=== PATIENT | male | born 1955 | race Caucasian/White ===

== ENCOUNTER → 2017-09-24 | Outpatient (CLI) | payer OTHER ==
--- NOTE | 2017-09-24 17:19 | CONS ---
CONSULTATION REASON FOR CONSULTATION: Sleep apnea. This is a 62-year-old male patient, referred to the [facility] [place] for evaluation of sleep apnea. The patient reports loud snoring and he has been told to quit breathing by family members. He wakes up tired during the day. He averages around 6-7 hours of sleep. He goes to bed between 11:00 p.m. and 2:00 a.m. and gets out 530-6 a.m. in the morning. On weekends, he sleeps a bit longer than that. As such, he averages somewhere between 5-7 hours of sleep per night. He is tired during the day. He can fall asleep easily. He takes a 30 minute nap on a daily basis. He does not fall asleep while driving his car. No history of any motor vehicle accident because of feeling drowsy or sleepy. His [place] score is 8. PAST MEDICAL HISTORY: COPD, hypertension, paroxysmal atrial fibrillation, gout, hyperlipidemia diabetes mellitus, peripheral neuropathy. PAST SURGICAL HISTORY: Includes knee surgery, cholecystectomy, tonsillectomy, eye surgery. DRUG ALLERGIES: Not known. OUTPATIENT MEDICATION LIST: Includes: 1. Allopurinol 100 mg p.o. daily. 2. Sotalol 120 mg p.o. daily. 3. Norvasc 10 mg p.o. daily. 4. Aspirin 81 mg p.o. daily. 5. Lipitor 40 mg p.o. daily. 6. Advair 250-50 Diskus 1 puff twice a day. 7. Gabapentin 300 mg p.o. every 12 hours. 8. Lasix 20 mg twice a day. 9. Glimepiride 2 mg in the morning, 1 at night. 10.Lisinopril 20 mg p.o. daily. 11.Singular 10 a day. 12.Xarelto 15 mg p.o. daily. 13.Aldactone 25 mg p.o. daily. 14.Digoxin 0.125 mg p.o. daily. 15.Spiriva 1 inhalation daily. SOCIAL HISTORY: Patient smokes 1 pack of cigarettes a day. No history of alcohol. No history of IV drugs. FAMILY HISTORY: Both parents, mother and father have obstructive sleep apnea. REVIEW OF SYSTEMS: 12-point review of system was done. Positive findings are mentioned above in the history of present illness. No recent weight gain or weight loss. No other constitutional symptoms for now. No sleepwalking. No sleep talking. No other parasomnias. No restlessness in lower extremities. Although he has chronic symptoms of neuropathy. No anxiety. No palpitations. No panic attacks. No claustrophobia. PHYSICAL EXAMINATION: BP is 150/66, pulse 62, respirations 16, temperature 97.8. Saturation 98% on room air. Weight is 251, height is 5 feet 10 inches, neck size 17. General appearance: Calm, comfortable. Head is atraumatic, normocephalic. NECK: Supple. Mallampati class 4. No overbite. No goiter or neck masses. LUNGS: Clear to auscultation. HEART: Sounds regular rhythm. Normal S1, S2. No S3. No murmurs. ABDOMEN: Soft, nontender. No organomegaly. EXTREMITIES: No edema. No cyanosis or clubbing. SKIN: Negative for any wounds or ulceration. NEUROLOGIC: A and O x3. No focal neurological deficits. IMPRESSION: 1. Hypersomnia, [place] score of 8, under investigation for sleep apnea likely related to obstructive sleep apnea. 2. Loud snoring. 3. Witnessed apneas. 4. Obesity BMI of 36. 5. Paroxysmal atrial fibrillation, current rhythm is sinus. 6. Chronic obstructive pulmonary disease. 7. Hypertension. 8. Hyperlipidemia. 9. Diabetes mellitus. 10.Peripheral neuropathy. PLAN: The patient has a component of insufficient sleep syndrome. He is averaging somewhere between 5-7 hours of sleep. I would advise him to go to bed at a regular time which will be probably somewhere between 10-11 pm. He needs to average of at least 7 hours of sleep every night. At the same time there is suspicion for obstructive sleep apnea. The patient will be sent for a screening polysomnogram to look for any sleep breathing disorder and treat accordingly. Weight loss is advised. Tight control of cardiovascular risk factors. We will continue to follow. MMODL / IJN: [id number] /
== END | disposition home or self-care (01) ==
LOC: SLEEP 16:06
PROVIDERS: ATTEND Internal Medicine Critical Care Medicine
DX: G47.10 Hypersomnia, unspecified (principal); R06.83 Snoring; E66.9 Obesity, unspecified; I48.0 Paroxysmal atrial fibrillation; J44.9 Chronic obstructive pulmonary disease, unspecified; I10 Essential (primary) hypertension; E78.5 Hyperlipidemia, unspecified; E11.42 Type 2 diabetes mellitus with diabetic polyneuropathy; F17.210 Nicotine dependence, cigarettes, uncomplicated; Z68.36 Body mass index [BMI] 36.0-36.9, adult; Z79.899 Other long term (current) drug therapy; Z79.82 Long term (current) use of aspirin; Z79.84 Long term (current) use of oral hypoglycemic drugs
CPT/HCPCS: 99211

== ENCOUNTER → 2017-09-26 | Outpatient (CLI) | payer OTHER ==
--- NOTE | 2017-09-26 11:21 | XR ---
EXAMINATION TYPE: XR knee complete LT DATE OF EXAM: 09/26/2017 CLINICAL HISTORY: Medial left knee pain. Prior hyperextension injury resulting in prior surgical repa ir. TECHNIQUE: Three views of the left knee are obtained. COMPARISON: None. FINDINGS: There is no acute fracture/dislocation evident in left knee. There is evidence of prior c ruciate ligament repair with osseous tracts of the lateral distal femoral condyle and medial tibial p lateau and fixating solitary transcortical screw of the medial tibial plateau. No evidence of hardwar e fracture. The tri-compartment joint spaces appear within normal limits. Bicompartmental chondrocalc inosis is noted. There are small tricompartmental marginal osteophytes . The overlying soft tissue ap pears unremarkable. Mild calcific atheromatous change of the femoral artery and its branches is seen. IMPRESSION: 1. No acute fracture or dislocation in the left knee. 2. Bicompartmental chondrocalcinosis, which can be seen in CPPD other arthropathies. 3. Postsurgical change of the left knee with no evidence of hardware fracture or malalignment. 4. Mild tricompartmental arthrosis.
== END | disposition home or self-care (01) ==
LOC: RADXRMAIN 10:45
PROVIDERS: ATTEND Family Medicine
DX: M17.12 Unilateral primary osteoarthritis, left knee (principal); M11.262 Other chondrocalcinosis, left knee; Z98.890 Other specified postprocedural states

== ENCOUNTER → 2017-10-01 | Outpatient (CLI) | payer OTHER ==
--- NOTE | 2017-10-02 10:42 | CT ---
EXAMINATION TYPE: CT abdomen pelvis wo con DATE OF EXAM: 10/01/2017 COMPARISON: None HISTORY: Gross hematuria. CT DLP: 1135 mGycm Examination of the solid and hollow viscera is limited given the lack of contrast. FINDINGS: LUNG BASES: No evidence for nodule. No evidence for infiltrate. LIVER/GB: Cholecystectomy clips noted. No space-occupying hepatic lesion. PANCREAS: No pancreatic mass identified. No inflammatory process seen. SPLEEN: No evidence for splenomegaly. No intrasplenic lesions seen. ADRENALS: Left adrenal nodule reflecting an adenoma KIDNEYS: 5 mm nonobstructing calculus upper pole right kidney. 2 mm nonobstructing calculus lower santi e right kidney. Hypoattenuating lesion subcentimeter in size midpole right kidney is nonspecific. BOWEL: Appendix has a normal appearance. No evidence of bowel obstruction. No inflammatory process. Lymph nodes: No evidence for adenopathy greater than 1 cm. Abdominal aorta: Atheromatous changes seen. No evidence for aneurysm. Genital organs: No significant abnormality. Other: No significant abnormality. IMPRESSION: 1. Nonobstructing nephrolithiasis. 2. Nonspecific right renal lesion. Consider ultrasound correlation.
== END ==
LOC: RADCTMAIN 17:50
PROVIDERS: ATTEND Family Medicine
DX: N20.0 Calculus of kidney (principal); N28.9 Disorder of kidney and ureter, unspecified; R31.0 Gross hematuria
CPT/HCPCS: 74176

== ENCOUNTER 2017-10-21 13:43 | Inpatient (IN) | payer OTHER ==
[2017-10-21] MEDS ORDERED: KETOROLAC 30 MG/ML 1 ML VIAL IVP STA (14:44)
[2017-10-21] MEDS ORDERED: METOCLOPRAMIDE 5 MG/ML 2 ML VIAL IVP STA (14:44)
--- NOTE | 2017-10-21 14:50 | ED ---
General Adult HPI - General Chief complaint: Abdominal Pain Stated complaint: Abdominal pain Time Seen by Provider: 10/21/17 14:21 Source: patient, RN notes reviewed Mode of arrival: wheelchair Limitations: no limitations - History of Present Illness Initial comments: Patient is a pleasant 62-year-old male presenting to the emergency Department with abdominal pain. Discomfort is mostly the lower abdomen, on both sides in the middle. Patient does have a history of similar symptoms twice previously associated with kidney stones. Patient does have associated nausea. Patient had some mild chest discomfort in route however attributes that to his overall discomfort. Patient has been sweating. No fevers. Patient has had decreased urinary output today. - Related Data Home Medications Medication Instructions Recorded Confirmed Allopurinol [Zyloprim] 100 mg PO DAILY 08/08/14 10/21/17 Gabapentin [Neurontin] 300 mg PO BID 08/08/14 10/21/17 Glimepiride [Amaryl] 1 mg PO AC-SUPPER 08/08/14 10/21/17 Atorvastatin [Lipitor] 40 mg PO HS 10/21/17 10/21/17 Fluticasone/Salmeterol [Advair 1 puff INHALATION RT-BID 10/21/17 10/21/17 250-50 Diskus] Furosemide [Lasix] 20 mg PO BID 10/21/17 10/21/17 Glimepiride [Amaryl] 2 mg PO AC-BRKFST 10/21/17 10/21/17 Lisinopril [Zestril] 20 mg PO BID 10/21/17 10/21/17 Montelukast [Singulair] 10 mg PO HS 10/21/17 10/21/17 Rivaroxaban [Xarelto] 15 mg PO AC-SUPPER 10/21/17 10/21/17 Sotalol [Betapace] 120 mg PO BID 10/21/17 10/21/17 Spironolactone [Aldactone] 25 mg PO DAILY 10/21/17 10/21/17 Tamsulosin [Flomax] 0.4 mg PO HS 10/21/17 10/21/17 Tiotropium 18 Mcg/Puff [Spiriva] 1 cap INHALATION RT-DAILY 10/21/17 10/21/17 amLODIPine [Norvasc] 10 mg PO DAILY 10/21/17 10/21/17 Previous Rx's Medication Instructions Recorded Aspirin EC [Ecotrin Low Dose] 81 mg PO DAILY tablet. 08/09/14 Allergies Allergy/AdvReac Type Severity Reaction Status Date / Time No Known Allergies Allergy Verified 10/21/17 14:53 Review of Systems ROS Statement: Those systems with pertinent positive or pertinent negative responses have been documented in the HPI. ROS Other: All systems not noted in ROS Statement are negative. Constitutional: Denies: fever Eyes: Denies: eye pain ENT: Denies: ear pain Respiratory: Denies: cough Cardiovascular: Reports: as per HPI, chest pain Endocrine: Denies: fatigue Gastrointestinal: Reports: abdominal pain, nausea. Denies: vomiting Genitourinary: Reports: urgency. Denies: dysuria Musculoskeletal: Denies: back pain Skin: Denies: rash Neurological: Denies: weakness Past Medical History Past Medical History: Atrial Fibrillation, COPD, Diabetes Mellitus, Deep Vein Thrombosis (DVT), Hyperlipidemia, Hypertension, Osteoarthritis (OA), Prostate Disorder Additional Past Medical History / Comment(s): Hypertension and hypertensive cardio vascular disease, hypokalemia, benign prostatic hypertrophy, diabetes mellitus type 2, osteoarthritis, overweight, chronic tobacco use and dependence , COPD, gout. History of Any Multi-Drug Resistant Organisms: None Reported Past Surgical History: Cholecystectomy, Joint Replacement Additional Past Surgical History / Comment(s): Cholecystectomy with hernia repair about 2 weeks ago, Bilateral cataract surgery, left total knee arthroplasty with second arthroscopic knee surgery, left leg open reduction and internal fixation. Past Anesthesia/Blood Transfusion Reactions: No Reported Reaction Past Psychological History: No Psychological Hx Reported Smoking Status: Heavy tobacco smoker Past Alcohol Use History: None Reported, Occasional Past Drug Use History: None Reported - Past Family History Father History Unknown: Yes Family Medical History: Cancer (Father is 88-year-old he had melanoma 3) Mother History Unknown: Yes Family Medical History: Cancer (Mother at age of 64 from cancer) Brother(s) Family Medical History: No Reported History (Patient has one brother no major medical problems.) Sister(s) Family Medical History: No Reported History (2 sisters one of them from drug overdose after a chronic pain syndrome from low back pain) General Exam Limitations: no limitations General appearance: alert, other (Patient does appear uncomfortable) Head exam: Present: atraumatic, normocephalic Eye exam: Present: normal appearance Neck exam: Present: normal inspection Respiratory exam: Present: normal lung sounds bilaterally Cardiovascular Exam: Present: regular rate, normal rhythm Expanded Peripheral pulses: 2+: Dorsalis Pedis (R), Dorsalis Pedis (L) GI/Abdominal exam: Present: soft, tenderness (Mild tenderness in the lower abdomen), normal bowel sounds. Absent: distended, guarding, rebound, rigid, pulsatile mass Extremities exam: Present: normal inspection. Absent: pedal edema, calf tenderness Back exam: Present: normal inspection Neurological exam: Present: alert Psychiatric exam: Present: normal affect, normal mood Skin exam: Present: diaphoretic Course Vital Signs 10/21/17 10/21/17 10/21/17 13:48 14:01 15:45 Temperature 97.7 F Pulse Rate 60 68 Respiratory 20 20 18 Rate Blood Pressure 197/95 156/68 O2 Sat by Pulse 100 95 Oximetry EKG Findings - EKG Comments: EKG Findings:: Normal sinus rhythm 61. ME 182. QRS 86. QT 454. QTC 457. Normal axis. Septal Q waves. No acute ST change. Medical Decision Making - Medical Decision Making Patient reevaluated and is improved. Discomfort is currently 5/10. Case was discussed in detail with Dr. Zamora from vascular surgery who will consult on this patient. He states patient does not need immediate intervention. Case was also discussed with Dr. De La Cruz who will admit for Dr. Long. - Lab Data Result diagrams: 10/21/17 14:21 10/21/17 14:21 Lab Results 10/21/17 10/21/17 10/21/17 Range/Units 14:21 14:21 14:21 WBC 13.2 H (3.8-10.6) k/uL RBC 5.11 (4.30-5.90) m/uL Hgb 15.8 (13.0-17.5) gm/dL Hct 48.6 (39.0-53.0) % MCV 95.2 (80.0-100.0) fL MCH 30.9 (25.0-35.0) pg MCHC 32.5 (31.0-37.0) g/dL RDW 13.8 (11.5-15.5) % Plt Count 248 (150-450) k/uL Neutrophils % 79 % Lymphocytes % 14 % Monocytes % 5 % Eosinophils % 1 % Basophils % 0 % Neutrophils # 10.4 H (1.3-7.7) k/uL Lymphocytes # 1.9 (1.0-4.8) k/uL Monocytes # 0.7 (0-1.0) k/uL Eosinophils # 0.1 (0-0.7) k/uL Basophils # 0.0 (0-0.2) k/uL PT (9.0-12.0) sec INR (<1.2) APTT (22.0-30.0) sec Sodium 138 (137-145) mmol/L Potassium 5.1 (3.5-5.1) mmol/L Chloride 106 (98-107) mmol/L Carbon Dioxide 18 L (22-30) mmol/L Anion Gap 14 mmol/L BUN 29 H (9-20) mg/dL Creatinine 1.30 H (0.66-1.25) mg/dL Est GFR (CKD-EPI)AfAm 69 (>60 ml/min/1.73 sqM) Est GFR (CKD-EPI)NonAf 60 (>60 ml/min/1.73 sqM) Glucose 202 H (74-99) mg/dL Calcium 9.9 (8.4-10.2) mg/dL Total Bilirubin 0.6 (0.2-1.3) mg/dL AST 31 (17-59) U/L ALT 34 (21-72) U/L Alkaline Phosphatase 111 (38-126) U/L Total Creatine Kinase 198 H (55-170) U/L CK-MB (CK-2) 2.9 H* (0.0-2.4) ng/mL CK-MB (CK-2) Rel Index 1.5 Troponin I <0.012 (0.000-0.034) ng/mL Total Protein 7.4 (6.3-8.2) g/dL Albumin 4.4 (3.5-5.0) g/dL Amylase 99 (30-110) U/L Lipase 104 (23-300) U/L Urine Color Urine Appearance (Clear) Urine pH (5.0-8.0) Ur Specific [place] (1.001-1.035) Urine Protein (Negative) Urine Glucose (UA) (Negative) Urine Ketones (Negative) Urine Blood (Negative) Urine Nitrite (Negative) Urine Bilirubin (Negative) Urine Urobilinogen (<2.0) mg/dL Ur Leukocyte Esterase (Negative) Urine RBC (0-5) /hpf Urine WBC (0-5) /hpf Urine Mucus (None) /hpf 10/21/17 10/21/17 Range/Units 14:21 14:57 WBC (3.8-10.6) k/uL RBC (4.30-5.90) m/uL Hgb (13.0-17.5) gm/dL Hct (39.0-53.0) % MCV (80.0-100.0) fL MCH (25.0-35.0) pg MCHC (31.0-37.0) g/dL RDW (11.5-15.5) % Plt Count (150-450) k/uL Neutrophils % % Lymphocytes % % Monocytes % % Eosinophils % % Basophils % % Neutrophils # (1.3-7.7) k/uL Lymphocytes # (1.0-4.8) k/uL Monocytes # (0-1.0) k/uL Eosinophils # (0-0.7) k/uL Basophils # (0-0.2) k/uL PT 9.8 (9.0-12.0) sec INR 1.0 (<1.2) APTT 27.9 (22.0-30.0) sec Sodium (137-145) mmol/L Potassium (3.5-5.1) mmol/L Chloride (98-107) mmol/L Carbon Dioxide (22-30) mmol/L Anion Gap mmol/L BUN (9-20) mg/dL Creatinine (0.66-1.25) mg/dL Est GFR (CKD-EPI)AfAm (>60 ml/min/1.73 sqM) Est GFR (CKD-EPI)NonAf (>60 ml/min/1.73 sqM) Glucose (74-99) mg/dL Calcium (8.4-10.2) mg/dL Total Bilirubin (0.2-1.3) mg/dL AST (17-59) U/L ALT (21-72) U/L Alkaline Phosphatase (38-126) U/L Total Creatine Kinase (55-170) U/L CK-MB (CK-2) (0.0-2.4) ng/mL CK-MB (CK-2) Rel Index Troponin I (0.000-0.034) ng/mL Total Protein (6.3-8.2) g/dL Albumin (3.5-5.0) g/dL Amylase (30-110) U/L Lipase (23-300) U/L Urine Color Yellow Urine Appearance Clear (Clear) Urine pH 5.5 (5.0-8.0) Ur Specific [place] 1.016 (1.001-1.035) Urine Protein 1+ H (Negative) Urine Glucose (UA) 3+ H (Negative) Urine Ketones 1+ H (Negative) Urine Blood Large H (Negative) Urine Nitrite Negative (Negative) Urine Bilirubin Negative (Negative) Urine Urobilinogen <2.0 (<2.0) mg/dL Ur Leukocyte Esterase Trace H (Negative) Urine RBC 142 H (0-5) /hpf Urine WBC 13 H (0-5) /hpf Urine Mucus Rare H (None) /hpf - Radiology Data Radiology results: report reviewed (Computed tomography scan of the abdomen pelvis does show 5.5 mm distal right ureteral calculus with hydronephrosis. Short segment and localize aortic dissection at the L2 level that extends a course of 1 cm. This was also visualized on previous computed tomography scan.) , image reviewed (KUB shows right-sided ureterolithiasis.) Disposition Clinical Impression: Aortic dissection, abdominal, Ureterolithiasis Disposition: ADMITTED IP TO THIS HOSP Is patient prescribed a controlled substance at d/c from ED?: No Referrals: Tanesha Long MD [Primary Care Provider] - 1-2 days Decision Time: 16:48
[2017-10-21] MEDS: SODIUM CHLORIDE 0.9% 1,000 ML IV STA ×2 (14:55→19:07)
[2017-10-21 15:09] LABS: Basophils % (A) 0 %; Eosinophils # (A) 0.1 k/uL (0-0.7); Eosinophils % (A) 1 %; HCT 48.6 % (39.0-53.0); HGB 15.8 gm/dL (13.0-17.5); Lymphocytes # (A) 1.9 k/uL (1.0-4.8); Lymphocytes % (A) 14 %; MCH 30.9 pg (25.0-35.0); MCHC 32.5 g/dL (31.0-37.0); MCV 95.2 fL (80.0-100.0); Mean Platelet Volume 7.2; Monocytes # (A) 0.7 k/uL (0-1.0); Monocytes % (A) 5 %; Neutrophils # (A) 10.4 k/uL (1.3-7.7); Neutrophils % (A) 79 %; Platelet Count 248 k/uL (150-450); RBC 5.11 m/uL (4.30-5.90); RDW 13.8 % (11.5-15.5); WBC 13.2 k/uL (3.8-10.6)
[2017-10-21 15:13] LABS: Partial Thromboplastin Time 27.9 sec (22.0-30.0); Prothrombin Time 9.8 sec (9.0-12.0)
[2017-10-21 15:17] LABS: Albumin 4.4 g/dL (3.5-5.0); Calcium 9.9 mg/dL (8.4-10.2); Potassium 5.1 mmol/L (3.5-5.1); Total Bilirubin 0.6 mg/dL (0.2-1.3); Total Protein 7.4 g/dL (6.3-8.2)
[2017-10-21 15:21] LABS: Appearance,Urine Clear (Clear); Bilirubin,Urine Negative (Negative); Blood,Urine Large (Negative); Color,Urine Yellow; Glucose,Urine (UA) 3+ (Negative); Ketones,Urine 1+ (Negative); Leukocyte Esterase,Urine Trace (Negative); Mucus,Urine Rare /hpf; Nitrite,Urine Negative (Negative); PH, Urine 5.5 (5.0-8.0); Protein,Urine 1+ (Negative); RBC,Urine 142 /hpf (0-5); Specific Gravity,Urine 1.016 (1.001-1.035); Urobilinogen,Urine <2.0 mg/dL (<2.0); WBC,Urine 13 /hpf (0-5)
[2017-10-21 15:29] LABS: Creatine Kinase 198 U/L (55-170)
[2017-10-21 15:42] LABS: Troponin I <0.012 ng/mL (0.000-0.034)
[2017-10-21 15:48] LABS: Creatine Kinase MB 2.9 ng/mL (0.0-2.4)
--- NOTE | 2017-10-21 15:53 | CT ---
EXAMINATION TYPE: CT abdomen pelvis wo con DATE OF EXAM: 10/21/2017 COMPARISON: 10/01/2017 HISTORY: Patient complains of RLQ pain. CT DLP: 1010.3 mGycm Automated exposure control for dose reduction was used. TECHNIQUE: Helical acquisition of images was performed from the lung bases through the pelvis. FINDINGS: LUNG BASES: Subsegmental consolidation at the lung bases. Changes of chronic interstitial lung diseas e. LIVER/GB: Previous cholecystectomy changes are noted. PANCREAS: No significant abnormality is seen. SPLEEN: No significant abnormality is seen. ADRENALS: Nonspecific 1 cm nodular thickening of the left adrenal gland is stable. KIDNEYS: There is moderate right hydronephrosis secondary to a distal right ureteral calculus just pr oximal to the UVJ measuring approximately 5.5 mm. There are additional punctate calcifications involv ing the right kidney with at least 3 additional 1 mm calcifications. There is an upper pole larger ca lcification noted posteriorly measuring 3 mm. No definite left-sided renal calculi. Indeterminate rig ht renal lesion by noncontrast technique. ADENOPATHY: None visualized. OSSEOUS STRUCTURES: Severe degenerative disc disease involving the lower lumbar spine. BOWEL: No significant abnormality is seen. Appendix appears normal. OTHER: Atherosclerotic change of the vasculature. IMPRESSION: 1. Moderate to severe right hydronephrosis secondary to obstructing 5.5 mm distal right ureteral calc ulus. 2. Right-sided nephrolithiasis as measured above. 3. There is a short segmental localized aortic dissection at the L2 level. This appears to extend a c ourse of 1 cm. Stable from the prior exam. Case discussed with ER physician.
--- NOTE | 2017-10-21 16:22 | XR ---
Abdomen HISTORY: Abdominal pain Frontal view of the abdomen on [address] abdomen pelvis same date Surgical clips present in the right upper quadrant. Lung bases are clear. There is no evident pneumop eritoneum or bowel obstruction. At the level of the distal right ureter there is a calcification pres ent corresponding to plain film finding measuring approximately 8 mm in size. Calcification is superi mposed over the right kidney measuring approximately 5 to 6 mm. Degenerative disc changes in the visu alized spine, there may be a slight spinal curvature. IMPRESSION: Right nephrolithiasis, distal right ureteral calculus.
[2017-10-21] MEDS ORDERED: ONDANSETRON 4 MG/2 ML VIAL IVP PRN (16:49)
[2017-10-21] MEDS ORDERED: HYDROmorphone 1 MG/ML 1 ML SYRINGE IVP PRN (16:49)
[2017-10-21] MEDS ORDERED: NALOXONE 0.4 MG/ML 1 ML VIAL IV PRN (16:49)
[2017-10-21] MEDS ORDERED: METOPROLOL TARTRATE 25 MG TAB PO PRN (16:55)
[2017-10-21] MEDS ORDERED: SODIUM CHLORIDE 0.9% 1,000 ML IV SCH ×2 (17:00→22:15)
[2017-10-21 18:51] VITALS: BMI 34.8
[2017-10-21] MEDS: HYDROmorphone 1 MG/ML 1 ML SYRINGE IVP PRN ×2 (19:02→21:44)
[2017-10-21 20:45] LABS: Glucose,Whole Blood 131 mg/dL (75-99)
[2017-10-21] MEDS ORDERED: ATORVASTATIN 40 MG TAB PO SCH (21:00)
[2017-10-21] MEDS: FUROSEMIDE 20 MG TAB PO SCH ×2 (21:48→22:05)
[2017-10-21] MEDS ORDERED: SOTALOL 120 MG TAB PO SCH (22:15)
[2017-10-21] MEDS ORDERED: GABAPENTIN 300 MG CAP PO SCH (22:15)
[2017-10-21] MEDS ORDERED: TAMSULOSIN 0.4 MG CAP.ER.24H PO SCH (22:15)
[2017-10-21] MEDS ORDERED: MONTELUKAST 10 MG TAB PO SCH (22:15)
[2017-10-21] MEDS ORDERED: LISINOPRIL 20 MG TAB PO SCH (22:15)
[2017-10-22] MEDS: HYDROmorphone 1 MG/ML 1 ML SYRINGE IVP PRN (01:09)
[2017-10-22 06:02] LABS: Glucose,Whole Blood 146 mg/dL (75-99)
[2017-10-22 07:02] VITALS: TEMP 98.4
[2017-10-22] MEDS ORDERED: SOTALOL 120 MG TAB PO STA (08:38)
[2017-10-22 08:43] VITALS: BP 151/70; PULSE 47; RESP 18
[2017-10-22] MEDS ORDERED: GLIMEPIRIDE 2 MG TAB PO SCH (08:45)
--- NOTE | 2017-10-22 08:53 | CONS ---
CONSULTATION This is a 62-year-old pleasant gentleman who came to the emergency room yesterday with history of abdominal pain. Patient has a history of recurrent calculi for that he was seen before and found to have a right ureteric stone. Patient has history of hypertension controlled with medication. MEDICAL HISTORY: History of hypertension, coronary artery disease. He has a onion topper out of town which he is going to see him tomorrow. Patient is under care of Dr. Long. No history of claudication, rest pain. PHYSICAL EXAMINATION: Patient was seen in his room. Patient is lying comfortably in bed. Neck is supple. No bruit appreciated. Chest is clear to auscultation. First and second heart sounds are normal. Abdomen is soft, nontender. Mild tenderness and discomfort noted at the left lower abdomen. Vascular exam, brachial radial pulses are palpable. Femorals are 1+ bilateral. No ischemic changes noted in the extremity. CT scan showed right ureteric stone and also the it revealed the patient has a chronic dissection, which she was present on the previous exam. At this point, the patient is stable from a vascular point of view. Patient wants to go to see his own onion topper out of town. There is no evidence of any vascular compromise. According to the patient, his pain is gone and also by CT scan shows there is a localized dissection at the L2 level which extends about 1 cm and this was also visualized on the previous CAT scan. Patient is stable from vascular point of view. MMODL / IJN: [id number] /
[2017-10-22] MEDS ORDERED: SOTALOL 80 MG TAB PO SCH (09:00)
[2017-10-22] MEDS ORDERED: SPIRONOLACTONE 25 MG TAB PO SCH (09:00)
[2017-10-22] MEDS ORDERED: APIXABAN 5 MG TAB PO SCH (09:00)
[2017-10-22] MEDS ORDERED: amLODIPine 10 MG TAB PO SCH (09:00)
--- NOTE | 2017-10-22 12:03 | P.HPIM ---
History of Present Illness H&P Date: 10/22/17 Chief Complaint: Lower abdominal pain, nausea HISTORY AND PHYSICAL AND DISCHARGE SUMMARY: This is a 62-year-old male one of Dr. Long with a previous medical history significant for paroxysmal atrial fibrillation on eliquis, hypertension and hypertensive cardiovascular disease, hyperlipidemia, benign prostatic hypertrophy, diabetes mellitus type 2 with diabetic neuropathy, gout, history of DVT. He has known history of kidney stones and follows with the urologist. He states he has had his parathyroid checked. Patient states that he passes a stone on a monthly basis. He came into the hospital with lower abdominal pain to the suprapubic area along with nausea and decreased urine output. Her is blood pressure was elevated and he initially had some chest discomfort which he stated went away after he arrived to the hospital. CT of the abdomen and pelvis showed moderate to severe right hydronephrosis secondary to obstructing 5.5 mm distal right ureteral calculus. Right-sided nephrolithiasis. Short segmental localized aortic dissection at the L2 level this appears to extend the course of 1 cm. Stable from prior exam. White count was elevated at 13.2, BUN 29 creatinine 1.3. Blood sugars were elevated at 131-202. Troponin was negative. Urinalysis was clear with blood large, leukoesterase trace. Patient was started on Toradol, Dilaudid, IV fluids and admitted to the selective care unit where he was seen in consultation by Dr. Zamora and there was also a consult in for urology was subsequently canceled. Patient was seen by Dr. Zamora and deemed to be stable from a vascular perspective. By the time of this evaluation, patient was pain-free and he thought he passed the stone. He was angry that he did not have any breakfast and he was anxious to be discharged home. He requested that no medication changes be made for his blood pressure which she states it normally runs in the normal range at home. Patient will be discharged home today in stable condition. No medication changes were made. Discharge Medication List Allopurinol [Zyloprim] 100 mg PO DAILY 08/08/14 [History] Gabapentin [Neurontin] 300 mg PO BID 08/08/14 [History] Glimepiride [Amaryl] 1 mg PO AC-SUPPER 08/08/14 [History] Aspirin EC [Ecotrin Low Dose] 81 mg PO DAILY tablet. 08/09/14 [Rx] Apixaban [Eliquis] 5 mg PO BID 10/21/17 [History] Atorvastatin [Lipitor] 40 mg PO HS 10/21/17 [History] Fluticasone/Salmeterol [Advair 250-50 Diskus] 1 puff INHALATION RT-BID 10/21/17 [History] Furosemide [Lasix] 20 mg PO DAILY 10/21/17 [History] Glimepiride [Amaryl] 2 mg PO AC-BRKFST 10/21/17 [History] Lisinopril [Zestril] 20 mg PO BID 10/21/17 [History] Montelukast [Singulair] 10 mg PO HS 10/21/17 [History] Sotalol [Betapace] 120 mg PO BID 10/21/17 [History] Spironolactone [Aldactone] 25 mg PO DAILY 10/21/17 [History] Tamsulosin [Flomax] 0.4 mg PO HS 10/21/17 [History] amLODIPine [Norvasc] 10 mg PO DAILY 10/21/17 [History] Review of Systems All systems: negative Constitutional: Denies chills, Denies fatigue, Denies fever, Denies poor appetite, Denies weight loss Eyes: denies blurred vision, denies pain Ears, nose, mouth and throat: Denies headache, Denies sore throat, Denies vertigo Cardiovascular: Denies chest pain, Denies decreased exercise tolerance, Denies dyspnea on exertion, Denies leg edema, Denies lightheadedness, Denies shortness of breath, Denies syncope Respiratory: Denies cough, Denies cough with sputum, Denies dyspnea, Denies excessive sputum, Denies hemoptysis, Denies home oxygen, Denies wheezing Gastrointestinal: Reports abdominal pain, Denies diarrhea, Denies nausea, Denies vomiting Genitourinary: Reports hematuria, Denies dysuria Musculoskeletal: Denies myalgias Integumentary: Denies pruritus, Denies rash Neurological: Denies numbness, Denies weakness Psychiatric: Denies anxiety, Denies depression Endocrine: Denies fatigue, Denies weight change Past Medical History Past Medical History: Atrial Fibrillation, COPD, Diabetes Mellitus, Deep Vein Thrombosis (DVT), Hyperlipidemia, Hypertension, Osteoarthritis (OA), Prostate Disorder Additional Past Medical History / Comment(s): Hypertension and hypertensive cardio vascular disease, hypokalemia, benign prostatic hypertrophy, diabetes mellitus type 2, osteoarthritis, overweight, chronic tobacco use and dependence , COPD, gout. History of Any Multi-Drug Resistant Organisms: None Reported Past Surgical History: Cholecystectomy, Joint Replacement Additional Past Surgical History / Comment(s): Cholecystectomy with hernia repair about 2 weeks ago, Bilateral cataract surgery, left total knee arthroplasty with second arthroscopic knee surgery, left leg open reduction and internal fixation. Past Anesthesia/Blood Transfusion Reactions: No Reported Reaction Past Psychological History: No Psychological Hx Reported Smoking Status: Heavy tobacco smoker Past Alcohol Use History: None Reported, Occasional Additional Past Alcohol Use History / Comment(s): Patient is smoker one pack per day since he was 14 years of age. He drinks alcohol occasionally. Past Drug Use History: None Reported - Past Family History Father History Unknown: Yes Family Medical History: Cancer Additional Family Medical History / Comment(s): Father has history of melanoma 3. Mother History Unknown: Yes Family Medical History: Cancer Additional Family Medical History / Comment(s): Mother at age 64 from cancer. Brother(s) Family Medical History: No Reported History Additional Family Medical History / Comment(s): Patient has 1 brother with no major medical problems. Sister(s) Family Medical History: No Reported History Additional Family Medical History / Comment(s): Patient has 2 sisters and mother from drug overdose after chronic pain syndrome from low back pain. Medications and Allergies Home Medications Medication Instructions Recorded Confirmed Type Allopurinol [Zyloprim] 100 mg PO DAILY 08/08/14 10/21/17 History Gabapentin [Neurontin] 300 mg PO BID 08/08/14 10/21/17 History Glimepiride [Amaryl] 1 mg PO AC-SUPPER 08/08/14 10/21/17 History Aspirin EC [Ecotrin Low Dose] 81 mg PO DAILY tablet. 08/09/14 10/21/17 Rx Apixaban [Eliquis] 5 mg PO BID 10/21/17 10/21/17 History Atorvastatin [Lipitor] 40 mg PO HS 10/21/17 10/21/17 History Fluticasone/Salmeterol [Advair 1 puff INHALATION RT-BID 10/21/17 10/21/17 History 250-50 Diskus] Furosemide [Lasix] 20 mg PO DAILY 10/21/17 10/21/17 History Glimepiride [Amaryl] 2 mg PO AC-BRKFST 10/21/17 10/21/17 History Lisinopril [Zestril] 20 mg PO BID 10/21/17 10/21/17 History Montelukast [Singulair] 10 mg PO HS 10/21/17 10/21/17 History Sotalol [Betapace] 120 mg PO BID 10/21/17 10/21/17 History Spironolactone [Aldactone] 25 mg PO DAILY 10/21/17 10/21/17 History Tamsulosin [Flomax] 0.4 mg PO HS 10/21/17 10/21/17 History amLODIPine [Norvasc] 10 mg PO DAILY 10/21/17 10/21/17 History Allergies Allergy/AdvReac Type Severity Reaction Status Date / Time No Known Allergies Allergy Verified 10/21/17 14:53 Physical Exam Vitals: Vital Signs Temp Pulse Pulse Resp BP BP BP 10/22/17 04:10 98.4 F 71 17 135/68 10/22/17 00:10 97.5 F L 66 19 117/56 10/21/17 20:10 97.3 F L 57 L 19 10/21/17 18:56 52 L 18 175/81 10/21/17 18:00 97.6 F 66 18 143/63 10/21/17 17:16 98.0 F 68 18 126/59 10/21/17 15:45 68 18 156/68 10/21/17 14:01 20 10/21/17 13:48 97.7 F 60 20 197/95 BP Pulse Ox 10/22/17 04:10 97 10/22/17 00:10 98 10/21/17 20:10 146/70 96 10/21/17 18:56 165/80 97 10/21/17 18:00 97 10/21/17 17:16 96 10/21/17 15:45 95 10/21/17 14:01 10/21/17 13:48 100 Intake and Output 10/21/17 10/22/17 10/22/17 22:59 06:59 14:59 Output Total 300 200 Balance -300 -200 Output: Urine 300 200 Other: Voiding Method Urinal Urinal # Voids 1 1 Weight 113.398 kg 114.3 kg Patient sitting up in bed in no apparent distress at the time of evaluation. HEENT: Head is atraumatic, normocephalic, pupils were equal round reactive to light and accommodations, extraocular muscle movement were intact. Neck: Supple, no JVP, no carotid bruit, no lymphadenopathy. Chest: Decreased breath sounds at the bases scattered rhonchi minimal expiratory wheezes, no chest wall tenderness, no intercostal retractions. Heart: First heart sound is depressed, second sounds normal, irregularly irregular. Abdomen: Soft, nontender, nondistended positive bowel sounds. No suprapubic tenderness. Extremities: There is no edema, no calf tenderness, dorsalis pedis +1 bilaterally. Neurologic examination: Patient awake alert and oriented 3, cranial nerves II- 12 appear grossly intact. Deep tendon reflexes were normal, Babinski's were flexor bilaterally. Results CBC & Chem 7: 10/21/17 14:21 10/21/17 14:21 Labs: Abnormal Lab Results - Last 24 Hours (Table) 10/21/17 10/21/17 10/21/17 Range/Units 14:21 14:21 14:21 WBC 13.2 H (3.8-10.6) k/uL Neutrophils # 10.4 H (1.3-7.7) k/uL Carbon Dioxide 18 L (22-30) mmol/L BUN 29 H (9-20) mg/dL Creatinine 1.30 H (0.66-1.25) mg/dL Glucose 202 H (74-99) mg/dL POC Glucose (mg/dL) (75-99) mg/dL Total Creatine Kinase 198 H (55-170) U/L CK-MB (CK-2) 2.9 H* (0.0-2.4) ng/mL Urine Protein (Negative) Urine Glucose (UA) (Negative) Urine Ketones (Negative) Urine Blood (Negative) Ur Leukocyte Esterase (Negative) Urine RBC (0-5) /hpf Urine WBC (0-5) /hpf Urine Mucus (None) /hpf 10/21/17 10/21/17 10/22/17 Range/Units 14:57 20:43 06:00 WBC (3.8-10.6) k/uL Neutrophils # (1.3-7.7) k/uL Carbon Dioxide (22-30) mmol/L BUN (9-20) mg/dL Creatinine (0.66-1.25) mg/dL Glucose (74-99) mg/dL POC Glucose (mg/dL) 131 H 146 H (75-99) mg/dL Total Creatine Kinase (55-170) U/L CK-MB (CK-2) (0.0-2.4) ng/mL Urine Protein 1+ H (Negative) Urine Glucose (UA) 3+ H (Negative) Urine Ketones 1+ H (Negative) Urine Blood Large H (Negative) Ur Leukocyte Esterase Trace H (Negative) Urine RBC 142 H (0-5) /hpf Urine WBC 13 H (0-5) /hpf Urine Mucus Rare H (None) /hpf Thrombosis Risk Factor Assmnt - DVT/VTE Prophylaxis DVT/VTE Prophylaxis: Pharmacologic Prophylaxis ordered - Choose All That Apply Any of the Below Risk Factors Present?: Yes Each Factor Represents 1 point: Abnormal pulmonary function (COPD), Age 41-60 years Other Risk Factors: Yes Each Risk Factor Represents 3 Points: History of DVT/PE Thrombosis Risk Factor Assessment Total Risk Factor Score: 5 Thrombosis Risk Factor Assessment Level: High Risk Assessment and Plan Plan: 1. Right-sided kidney stone with hydronephrosis. Patient has seen his past for kidney stone. Patient will be discharged home today in stable condition and follow up with his urologist. 2. Incidental finding of small aneurysm on CAT scan that is known. Consult with Dr. Zamora is appreciated. 3. Paroxysmal atrial fibrillation on eliquis, sotalol. 4. Hypertension and hypertensive cardiovascular disease. Continue sotalol, Norvasc, spironolactone, lisinopril and Lasix 5. Hyperlipidemia. Continue atorvastatin. 6. Diabetes mellitus type 2. Continue glimepiride 2 mg with breakfast and one with supper. 7. Diabetic polyneuropathy continue patient on gabapentin 300 mg orally twice every day. 8. Chronic tobacco use and dependence, smoking cessation. 9. BPH. Continue tamsulosin 0.4 mg orally once at bedtime. 10. History of gout continue allopurinol 100 mg orally once every day. 11. Patient admitted as an inpatient for 1 night stay. Discharge plan: Return home Impression and plan of care have been directed as dictated by the signing physician. Loni Diaz nurse practitioner acting as scribe for signing physician.
== END 2017-10-22 08:50 | disposition home or self-care (01) | DRG 693 ==
LOC: EC 13:43 → 6SEL 16:48
PROVIDERS: ADMIT Internal Medicine; ATTEND Internal Medicine
DX: N13.2 Hydronephrosis with renal and ureteral calculous obstruction (principal); I71.00 Dissection of unspecified site of aorta; E11.42 Type 2 diabetes mellitus with diabetic polyneuropathy; E78.5 Hyperlipidemia, unspecified; F17.200 Nicotine dependence, unspecified, uncomplicated; I11.9 Hypertensive heart disease without heart failure; I25.10 Atherosclerotic heart disease of native coronary artery without angina pectoris; I48.0 Paroxysmal atrial fibrillation; J44.9 Chronic obstructive pulmonary disease, unspecified; N40.0 Benign prostatic hyperplasia without lower urinary tract symptoms; E66.3 Overweight; Z96.652 Presence of left artificial knee joint; Z79.01 Long term (current) use of anticoagulants; Z79.84 Long term (current) use of oral hypoglycemic drugs; Z80.8 Family history of malignant neoplasm of other organs or systems; Z86.718 Personal history of other venous thrombosis and embolism; Z87.442 Personal history of urinary calculi; Z79.899 Other long term (current) drug therapy; Z68.35 Body mass index [BMI] 35.0-35.9, adult; Z98.42 Cataract extraction status, left eye; Z98.41 Cataract extraction status, right eye; Z90.49 Acquired absence of other specified parts of digestive tract
CPT/HCPCS: 36415; 51798; 74018; 74176; 80053; 81001; 82150; 82550; 82553; 83690; 84484; 85025; 85610; 85730; 93005; 96361; 96374; 96375; 99285

== ENCOUNTER 2017-10-31 23:26 | Emergency (ER) | payer OTHER ==
[2017-10-31 23:39] VITALS: RESP 18
[2017-11-01] MEDS ORDERED: ONDANSETRON 4 MG/2 ML VIAL IVP STA
[2017-11-01] MEDS ORDERED: KETOROLAC 30 MG/ML 1 ML VIAL IVP STA
[2017-11-01] MEDS ORDERED: MORPHINE SULFATE 2 MG/ML SYRINGE IVP STA
[2017-11-01] MEDS ORDERED: SODIUM CHLORIDE 0.9% 1,000 ML IV STA
[2017-11-01 00:10] LABS: Basophils # (A) 0.1 k/uL (0-0.2); Basophils % (A) 1 %; Eosinophils # (A) 0.2 k/uL (0-0.7); Eosinophils % (A) 1 %; HCT 44.7 % (39.0-53.0); HGB 15.2 gm/dL (13.0-17.5); Lymphocytes # (A) 2.7 k/uL (1.0-4.8); Lymphocytes % (A) 20 %; MCH 31.8 pg (25.0-35.0); MCHC 34.1 g/dL (31.0-37.0); MCV 93.2 fL (80.0-100.0); Mean Platelet Volume 6.8; Monocytes # (A) 0.9 k/uL (0-1.0); Monocytes % (A) 7 %; Neutrophils # (A) 9.7 k/uL (1.3-7.7); Neutrophils % (A) 71 %; Platelet Count 227 k/uL (150-450); RBC 4.79 m/uL (4.30-5.90); RDW 13.3 % (11.5-15.5); WBC 13.7 k/uL (3.8-10.6)
[2017-11-01 00:12] LABS: Appearance,Urine Clear (Clear); Bilirubin,Urine Negative (Negative); Blood,Urine Large (Negative); Calcium Oxalate Crystals,Urine Occasional /hpf; Color,Urine Yellow; Glucose,Urine (UA) Negative (Negative); Hyaline Casts,Urine 1 /lpf (0-2); Ketones,Urine Negative (Negative); Leukocyte Esterase,Urine Trace (Negative); Mucus,Urine Rare /hpf; Nitrite,Urine Negative (Negative); PH, Urine 5.5 (5.0-8.0); Protein,Urine Negative (Negative); RBC,Urine 123 /hpf (0-5); Specific Gravity,Urine 1.016 (1.001-1.035); Urobilinogen,Urine <2.0 mg/dL (<2.0); WBC,Urine 14 /hpf (0-5)
[2017-11-01 00:19] LABS: Albumin 4.2 g/dL (3.5-5.0); Calcium 9.7 mg/dL (8.4-10.2); Potassium 4.5 mmol/L (3.5-5.1); Total Bilirubin 0.4 mg/dL (0.2-1.3); Total Protein 6.9 g/dL (6.3-8.2)
--- NOTE | 2017-11-01 00:33 | ED ---
General Adult HPI - General Source: patient Mode of arrival: ambulatory Limitations: no limitations <Rebekah Harper - Last Filed: 11/01/17 03:22> <Perla Billy - Last Filed: 11/03/17 19:06> - General Chief complaint: Urogenital Stated complaint: kidney stone Time Seen by Provider: 10/31/17 23:53 - History of Present Illness Initial comments: 62-year-old male patient presents to the emergency department today for evaluation of right-sided flank pain. Patient states he has been having recurrent kidney stones over the last several weeks. Patient states he was diagnosed with kidney stone 2 weeks ago but had pain had resolved and is feeling better. Patient states that he started to have pain again to the right flank early this morning. Patient states he has taken his home [place] without relief of symptoms. Patient denies any fever or chills with this. Denies any hematuria, dysuria, urinary frequency, urinary urgency, urinary retention. Patient has been having normal bowel movements. States he does have generalized abdominal discomfort. States he has been nauseated but has not vomited.Patient denies any recent rash, shortness breath, chest pain, numbness, tingling, dizziness, weakness, headache, visual changes, or any other complaints. (Rebekah Harper) - Related Data Home Medications Medication Instructions Recorded Confirmed Allopurinol [Zyloprim] 100 mg PO DAILY 08/08/14 10/21/17 Gabapentin [Neurontin] 300 mg PO BID 08/08/14 10/21/17 Glimepiride [Amaryl] 1 mg PO AC-SUPPER 08/08/14 10/21/17 Apixaban [Eliquis] 5 mg PO BID 10/21/17 10/21/17 Atorvastatin [Lipitor] 40 mg PO HS 10/21/17 10/21/17 Fluticasone/Salmeterol [Advair 1 puff INHALATION RT-BID 10/21/17 10/21/17 250-50 Diskus] Furosemide [Lasix] 20 mg PO DAILY 10/21/17 10/21/17 Glimepiride [Amaryl] 2 mg PO AC-BRKFST 10/21/17 10/21/17 Lisinopril [Zestril] 20 mg PO BID 10/21/17 10/21/17 Montelukast [Singulair] 10 mg PO HS 10/21/17 10/21/17 Sotalol [Betapace] 120 mg PO BID 10/21/17 10/21/17 Spironolactone [Aldactone] 25 mg PO DAILY 10/21/17 10/21/17 Tamsulosin [Flomax] 0.4 mg PO HS 10/21/17 10/21/17 amLODIPine [Norvasc] 10 mg PO DAILY 10/21/17 10/21/17 Previous Rx's Medication Instructions Recorded Aspirin EC [Ecotrin Low Dose] 81 mg PO DAILY tablet. 08/09/14 Ondansetron [Zofran ODT] 4 mg PO Q8HR PRN #10 tab 11/01/17 Allergies Allergy/AdvReac Type Severity Reaction Status Date / Time No Known Allergies Allergy Verified 10/21/17 14:53 Review of Systems ROS Other: All systems not noted in ROS Statement are negative. <Rebekah Harper - Last Filed: 11/01/17 03:22> ROS Other: All systems not noted in ROS Statement are negative. <Perla Billy - Last Filed: 11/03/17 19:06> ROS Statement: Those systems with pertinent positive or pertinent negative responses have been documented in the HPI. Past Medical History Past Medical History: Atrial Fibrillation, COPD, Diabetes Mellitus, Deep Vein Thrombosis (DVT), Hyperlipidemia, Hypertension, Osteoarthritis (OA), Prostate Disorder Additional Past Medical History / Comment(s): Hypertension and hypertensive cardio vascular disease, hypokalemia, benign prostatic hypertrophy, diabetes mellitus type 2, osteoarthritis, overweight, chronic tobacco use and dependence , COPD, gout., kidneys tones History of Any Multi-Drug Resistant Organisms: None Reported Past Surgical History: Cholecystectomy, Joint Replacement Additional Past Surgical History / Comment(s): Cholecystectomy with hernia repair about 2 weeks ago, Bilateral cataract surgery, left total knee arthroplasty with second arthroscopic knee surgery, left leg open reduction and internal fixation. Past Anesthesia/Blood Transfusion Reactions: No Reported Reaction Past Psychological History: No Psychological Hx Reported Smoking Status: Heavy tobacco smoker Past Alcohol Use History: None Reported, Occasional Past Drug Use History: None Reported - Past Family History Father History Unknown: Yes Family Medical History: Cancer Additional Family Medical History / Comment(s): Father has history of melanoma 3. Mother History Unknown: Yes Family Medical History: Cancer Additional Family Medical History / Comment(s): Mother at age 64 from cancer. Brother(s) Family Medical History: No Reported History Additional Family Medical History / Comment(s): Patient has 1 brother with no major medical problems. Sister(s) Family Medical History: No Reported History Additional Family Medical History / Comment(s): Patient has 2 sisters and mother from drug overdose after chronic pain syndrome from low back pain. <Rebekah Harper M - Last Filed: 11/01/17 03:22> General Exam Limitations: no limitations General appearance: alert, in no apparent distress, other (This is a well- developed, well-nourished adult male patient in no acute distress. Vital signs upon presentation are temperature 97.9F, pulse 58, respirations 18, blood pressure 152/78, pulse ox 99% on room air.) Eye exam: Present: normal appearance, PERRL, EOMI. Absent: scleral icterus, conjunctival injection, periorbital swelling ENT exam: Present: normal exam, normal oropharynx, mucous membranes moist Respiratory exam: Present: normal lung sounds bilaterally. Absent: respiratory distress, wheezes, rales, rhonchi, stridor Cardiovascular Exam: Present: regular rate, normal rhythm, normal heart sounds. Absent: systolic murmur, diastolic murmur, rubs, gallop, clicks GI/Abdominal exam: Present: soft, tenderness (Mild generalized tenderness), normal bowel sounds. Absent: distended, guarding, rebound, rigid Back exam: Present: normal inspection, CVA tenderness (R). Absent: CVA tenderness (L) Neurological exam: Present: alert, oriented X3, CN II-XII intact Psychiatric exam: Present: normal affect, normal mood Skin exam: Present: warm, dry, intact, normal color. Absent: rash <Rebekah Harper M - Last Filed: 11/01/17 03:22> Vital Signs 10/31/17 11/01/17 11/01/17 23:37 00:38 02:21 Temperature 97.9 F 97.6 F Pulse Rate 58 L 84 55 L Respiratory 18 18 18 Rate Blood Pressure 152/78 144/74 127/61 O2 Sat by Pulse 99 97 99 Oximetry Medical Decision Making - Lab Data Result diagrams: 10/31/17 23:49 10/31/17 23:49 - Radiology Data Radiology results: report reviewed, image reviewed <Rebekah Harper - Last Filed: 11/01/17 03:22> - Lab Data Result diagrams: 10/31/17 23:49 10/31/17 23:49 <Perla Billy - Last Filed: 11/03/17 19:06> - Medical Decision Making 62-year-old male patient presented to the emergency department today for evaluation of right flank pain. Patient does have history of kidney stones with most recent being diagnosed approximately 10 days ago. Patient did have evidence of 5.5 mm obstructing stone in the right ureter. Labs today did reveal elevated BUN at 33, creatinine 1.35, urine showed large amount of blood with trace leukocyte esterase, 123 white blood cells, 14 white blood cells, occasional calcium oxalate crystals, and rare urine mucus. Patient symptoms today are consistent with kidney stone, labs confirm diagnosis. Patient does have a [place] and Flomax at home. He will be given Zofran for nausea control. We will withhold NSAIDs at this time due to kidney function. He is instructed to follow-up with urologist for recheck in 1-2 days. Return parameters were discussed in detail. He verbalizes understanding and agrees with this plan. (Rebekah Harper) I was available for consultation in the emergency department. The history and physical exam were done by the midlevel provider. I was consulted for this patient's care. I reviewed the case with the midlevel provider and based on their presentation of the patient, I agree with the assessment, medical decision making and plan of care as documented. (Perla Billy) - Lab Data Lab Results 10/31/17 10/31/17 10/31/17 Range/Units 23:49 23:49 23:49 WBC 13.7 H (3.8-10.6) k/uL RBC 4.79 (4.30-5.90) m/uL Hgb 15.2 (13.0-17.5) gm/dL Hct 44.7 (39.0-53.0) % MCV 93.2 (80.0-100.0) fL MCH 31.8 (25.0-35.0) pg MCHC 34.1 (31.0-37.0) g/dL RDW 13.3 (11.5-15.5) % Plt Count 227 (150-450) k/uL Neutrophils % 71 % Lymphocytes % 20 % Monocytes % 7 % Eosinophils % 1 % Basophils % 1 % Neutrophils # 9.7 H (1.3-7.7) k/uL Lymphocytes # 2.7 (1.0-4.8) k/uL Monocytes # 0.9 (0-1.0) k/uL Eosinophils # 0.2 (0-0.7) k/uL Basophils # 0.1 (0-0.2) k/uL Sodium 136 L (137-145) mmol/L Potassium 4.5 (3.5-5.1) mmol/L Chloride 104 (98-107) mmol/L Carbon Dioxide 22 (22-30) mmol/L Anion Gap 10 mmol/L BUN 33 H (9-20) mg/dL Creatinine 1.35 H (0.66-1.25) mg/dL Est GFR (CKD-EPI)AfAm 66 (>60 ml/min/1.73 sqM) Est GFR (CKD-EPI)NonAf 57 (>60 ml/min/1.73 sqM) Glucose 166 H (74-99) mg/dL Calcium 9.7 (8.4-10.2) mg/dL Total Bilirubin 0.4 (0.2-1.3) mg/dL AST 27 (17-59) U/L ALT 42 (21-72) U/L Alkaline Phosphatase 130 H (38-126) U/L Total Protein 6.9 (6.3-8.2) g/dL Albumin 4.2 (3.5-5.0) g/dL Amylase 108 (30-110) U/L Lipase 104 (23-300) U/L Urine Color Yellow Urine Appearance Clear (Clear) Urine pH 5.5 (5.0-8.0) Ur Specific [place] 1.016 (1.001-1.035) Urine Protein Negative (Negative) Urine Glucose (UA) Negative (Negative) Urine Ketones Negative (Negative) Urine Blood Large H (Negative) Urine Nitrite Negative (Negative) Urine Bilirubin Negative (Negative) Urine Urobilinogen <2.0 (<2.0) mg/dL Ur Leukocyte Esterase Trace H (Negative) Urine RBC 123 H (0-5) /hpf Urine WBC 14 H (0-5) /hpf Calcium Oxalate Crystal Occasional H (None) /hpf Hyaline Casts 1 (0-2) /lpf Urine Mucus Rare H (None) /hpf - Radiology Data 3 views of the abdomen are obtained. Bowel gas pattern is normal. There is no sign of intestinal obstruction or pneumoperitoneum. Fecal pattern is normal. There is no evidence of a mass. There are clips cholecystectomy. There is aforementioned linear calcification of the right kidney. Impression by Dr. Ann shows nonacute abdomen with no change. Possible right renal calculus. (Rebekah Harper) Disposition Is patient prescribed a controlled substance at d/c from ED?: No Time of Disposition: 02:42 <Rebekah Harper - Last Filed: 11/01/17 03:22> <Perla Billy - Last Filed: 11/03/17 19:06> Clinical Impression: Kidney stone on right side Disposition: HOME SELF-CARE Condition: Good Instructions: Kidney Stones (ED), How to Strain Your Urine (ED) Additional Instructions: Increase fluids. Continue taking medication for pain control. Follow-up with urologist for further evaluation as soon as possible. Return here immediately for any new, worsening, or concerning symptoms. Prescriptions: Ondansetron [Zofran ODT] 4 mg PO Q8HR PRN #10 tab PRN Reason: Nausea Referrals: Tanesha Long MD [Primary Care Provider] - 1-2 days Nathaniel Gupta MD [STAFF PHYSICIAN] - 1-2 days
[2017-11-01 00:45] VITALS: TEMP 97.6
--- NOTE | 2017-11-01 01:16 | XR ---
EXAMINATION TYPE: XR KUB DATE OF EXAM: 11/01/2017 COMPARISON: 10/21/2017 HISTORY: Flank pain TECHNIQUE: 3 views FINDINGS: 3 upright views were obtained. Bowel gas pattern is normal. There is no sign of intestinal obstruction or pneumoperitoneum. Fecal pattern is normal. There is no evidence of a mass. There are c lips from cholecystectomy. There is a 4 mm calcification over the right kidney. IMPRESSION: Nonacute abdomen. No change. Possible right renal calculus.
[2017-11-01] MEDS ORDERED: SODIUM CHLORIDE 0.9% 500 ML IV ONE (02:02)
[2017-11-01] MEDS ORDERED: MORPHINE SULFATE 4 MG/ML SYRINGE IVP STA (02:07)
[2017-11-01 02:25] VITALS: BP 127/61; PULSE 55
== END 2017-11-01 03:08 | disposition home or self-care (01) ==
LOC: EC 23:26
DX: N20.2 Calculus of kidney with calculus of ureter (principal); I48.91 Unspecified atrial fibrillation; J44.9 Chronic obstructive pulmonary disease, unspecified; E11.9 Type 2 diabetes mellitus without complications; E78.5 Hyperlipidemia, unspecified; M10.9 Gout, unspecified; I11.9 Hypertensive heart disease without heart failure; F17.200 Nicotine dependence, unspecified, uncomplicated; Z86.718 Personal history of other venous thrombosis and embolism; Z96.652 Presence of left artificial knee joint; Z79.84 Long term (current) use of oral hypoglycemic drugs; Z79.01 Long term (current) use of anticoagulants; Z79.51 Long term (current) use of inhaled steroids; Z79.899 Other long term (current) drug therapy; Z90.49 Acquired absence of other specified parts of digestive tract
CPT/HCPCS: 36415; 80053; 82150; 83690; 85025; 81001; 74018; 99284; 96374; 96375 ×2; 96376; 96361 ×2; J2270 ×2; J2405; J1885

== ENCOUNTER → 2019-02-08 | Outpatient (CLI) | payer OTHER | END | disposition home or self-care (01) | LOC: RADMRIMAIN 06:34 | PROVIDERS: ATTEND Neurological Surgery | DX: Z53.9 Procedure and treatment not carried out, unspecified reason (principal) ==

== ENCOUNTER 2019-04-04 03:03 | Emergency (ER) | payer OTHER ==
[2019-04-04 03:11] VITALS: TEMP 97.8
[2019-04-04] MEDS ORDERED: IPRATROPIUM-ALBUTEROL 3 ML NEB INHALATION STA (03:24)
[2019-04-04] MEDS ORDERED: ASPIRIN 81 MG PO STA (03:24)
--- NOTE | 2019-04-04 03:30 | ED ---
SOB HPI - General Chief Complaint: Shortness of Breath Stated Complaint: Diff Breathing Time Seen by Provider: 04/04/19 03:16 Source: family Mode of arrival: wheelchair - History of Present Illness Initial Comments: Aravind is a 23-year-old male with a history of COPD who presents the emergency department today for evaluation of difficulty breathing. Patient reports he took his breathing treatment home with only minimal improvement continued feel tightness in his chest and wheezing which prompted him to come to the ER for further evaluation. Patient denies any recent productive cough, fevers chills. He denies any exertional chest pain palpitations lightheadedness or diaphoresis. - Related Data Home Medications Medication Instructions Recorded Confirmed Allopurinol [Zyloprim] 100 mg PO DAILY 08/08/14 10/21/17 Gabapentin [Neurontin] 300 mg PO BID 08/08/14 10/21/17 Glimepiride [Amaryl] 1 mg PO AC-SUPPER 08/08/14 10/21/17 Apixaban [Eliquis] 5 mg PO BID 10/21/17 10/21/17 Atorvastatin [Lipitor] 40 mg PO HS 10/21/17 10/21/17 Fluticasone/Salmeterol [Advair 1 puff INHALATION RT-BID 10/21/17 10/21/17 250-50 Diskus] Furosemide [Lasix] 20 mg PO DAILY 10/21/17 10/21/17 Glimepiride [Amaryl] 2 mg PO AC-BRKFST 10/21/17 10/21/17 Lisinopril [Zestril] 20 mg PO BID 10/21/17 10/21/17 Montelukast [Singulair] 10 mg PO HS 10/21/17 10/21/17 Sotalol [Betapace] 120 mg PO BID 10/21/17 10/21/17 Spironolactone [Aldactone] 25 mg PO DAILY 10/21/17 10/21/17 Tamsulosin [Flomax] 0.4 mg PO HS 10/21/17 10/21/17 amLODIPine [Norvasc] 10 mg PO DAILY 10/21/17 10/21/17 Previous Rx's Medication Instructions Recorded Aspirin EC [Ecotrin Low Dose] 81 mg PO DAILY tablet. 06/23/15 Ondansetron [Zofran ODT] 4 mg PO Q8HR PRN #10 tab 11/01/17 Allergies Allergy/AdvReac Type Severity Reaction Status Date / Time No Known Allergies Allergy Verified 04/04/19 03:11 Review of Systems ROS Statement: Those systems with pertinent positive or pertinent negative responses have been documented in the HPI. ROS Other: All systems not noted in ROS Statement are negative. Past Medical History Past Medical History: Atrial Fibrillation, COPD, Diabetes Mellitus, Deep Vein Thrombosis (DVT), Hyperlipidemia, Hypertension, Osteoarthritis (OA), Prostate Disorder Additional Past Medical History / Comment(s): Hypertension and hypertensive cardio vascular disease, hypokalemia, benign prostatic hypertrophy, diabetes mellitus type 2, osteoarthritis, overweight, chronic tobacco use and dependence, COPD, gout., kidneys tones History of Any Multi-Drug Resistant Organisms: None Reported Past Surgical History: Cholecystectomy, Joint Replacement Additional Past Surgical History / Comment(s): Cholecystectomy with hernia repair about 2 weeks ago, Bilateral cataract surgery, left total knee arthroplasty with second arthroscopic knee surgery, left leg open reduction and internal fixation. Past Anesthesia/Blood Transfusion Reactions: No Reported Reaction Past Psychological History: No Psychological Hx Reported Smoking Status: Heavy tobacco smoker Past Alcohol Use History: None Reported, Occasional Past Drug Use History: None Reported - Past Family History Brother(s) Family Medical History: No Reported History Additional Family Medical History / Comment(s): Patient has 1 brother with no major medical problems. Father History Unknown: Yes Family Medical History: Cancer Additional Family Medical History / Comment(s): Father has history of melanoma 3. Mother History Unknown: Yes Family Medical History: Cancer Additional Family Medical History / Comment(s): Mother at age 64 from cancer. Sister(s) Family Medical History: No Reported History Additional Family Medical History / Comment(s): Patient has 2 sisters and mother from drug overdose after chronic pain syndrome from low back pain. General Exam - General Exam Comments Initial Comments: Physical Exam GENERAL: Patient is well-developed and well-nourished. Patient is nontoxic and well-h ydrated and is in no distress. HENT: Normocephalic, Atraumatic. EYES: PERRL, EOMI PULMONARY: Expiratory wheezing in all lung ambriz CARDIOVASCULAR: Bradycardic regular ABDOMEN: Soft and nontender with normal bowel sounds. SKIN: Skin is clear with no lesions or rashes and otherwise unremarkable. : Deferred NEUROLOGIC: Patient is alert and oriented x3. Moving all extremities spontaneously MUSCULOSKELETAL: Normal extremities with adequate strength and full range of motion. No lower extremity swelling or edema. No calf tenderness. PSYCHIATRIC: Normal psychiatric evaluation. Course Vital Signs 04/04/19 04/04/19 04/04/19 03:06 03:23 03:37 Temperature 97.8 F Pulse Rate 59 L 53 L Respiratory 20 22 Rate Blood Pressure 150/73 O2 Sat by Pulse 98 Oximetry 04/04/19 04/04/19 04/04/19 03:48 04:00 04:57 Temperature Pulse Rate 49 L 50 L 46 L Respiratory 20 20 Rate Blood Pressure 122/55 126/72 O2 Sat by Pulse 97 98 Oximetry Medical Decision Making - Medical Decision Making The patient was seen and evaluated, history is obtained from patient Patient complaining of tenderness around this entire chest secondary to wheezing. No exertional chest pain. Labs and imaging ordered, chest x-ray with no signs of pneumonia or pneumothorax Patient received a DuoNeb Labs resulted in no significant abnormalities except Results were discussed patient who reports resolution of his wheezing and tightness in his chest after breathing treatment. I offered patient admission to this hospital for further evaluation by cardiology however patient has established follow-up on Friday of this week with his primary mine supervisor of [facility]. At this time patient's comfortable plan for discharge home as he is confident that his discomfort was secondary to wheezing. All questions pertaining care were answered return parameters were discussed patient discharged home in stable condition. - Lab Data Result diagrams: 04/04/19 03:23 04/04/19 03:23 Lab Results 04/04/19 04/04/19 04/04/19 Range/Units 03:23 03:23 03:23 WBC 8.3 (3.8-10.6) k/uL RBC 4.75 (4.30-5.90) m/uL Hgb 14.6 (13.0-17.5) gm/dL Hct 45.2 (39.0-53.0) % MCV 95.3 (80.0-100.0) fL MCH 30.8 (25.0-35.0) pg MCHC 32.3 (31.0-37.0) g/dL RDW 13.4 (11.5-15.5) % Plt Count 184 (150-450) k/uL Neutrophils % 59 % Lymphocytes % 31 % Monocytes % 7 % Eosinophils % 1 % Basophils % 0 % Neutrophils # 4.9 (1.3-7.7) k/uL Lymphocytes # 2.6 (1.0-4.8) k/uL Monocytes # 0.6 (0-1.0) k/uL Eosinophils # 0.1 (0-0.7) k/uL Basophils # 0.0 (0-0.2) k/uL PT (9.0-12.0) sec INR (<1.2) APTT (22.0-30.0) sec Sodium 139 (137-145) mmol/L Potassium 4.5 (3.5-5.1) mmol/L Chloride 108 H (98-107) mmol/L Carbon Dioxide 22 (22-30) mmol/L Anion Gap 9 mmol/L BUN 29 H (9-20) mg/dL Creatinine 1.17 (0.66-1.25) mg/dL Est GFR (CKD-EPI)AfAm 77 (>60 ml/min/1.73 sqM) Est GFR (CKD-EPI)NonAf 67 (>60 ml/min/1.73 sqM) Glucose 140 H (74-99) mg/dL Calcium 9.1 (8.4-10.2) mg/dL Magnesium 2.1 (1.6-2.3) mg/dL Total Bilirubin 0.5 (0.2-1.3) mg/dL AST 25 (17-59) U/L ALT 19 (4-49) U/L Alkaline Phosphatase 97 (38-126) U/L Troponin I (0.000-0.034) ng/mL NT-Pro-B Natriuret Pep 174 pg/mL Total Protein 6.6 (6.3-8.2) g/dL Albumin 3.9 (3.5-5.0) g/dL 04/04/19 04/04/19 Range/Units 03:23 03:23 WBC (3.8-10.6) k/uL RBC (4.30-5.90) m/uL Hgb (13.0-17.5) gm/dL Hct (39.0-53.0) % MCV (80.0-100.0) fL MCH (25.0-35.0) pg MCHC (31.0-37.0) g/dL RDW (11.5-15.5) % Plt Count (150-450) k/uL Neutrophils % % Lymphocytes % % Monocytes % % Eosinophils % % Basophils % % Neutrophils # (1.3-7.7) k/uL Lymphocytes # (1.0-4.8) k/uL Monocytes # (0-1.0) k/uL Eosinophils # (0-0.7) k/uL Basophils # (0-0.2) k/uL PT 20.4 H (9.0-12.0) sec INR 2.1 H (<1.2) APTT 34.0 H (22.0-30.0) sec Sodium (137-145) mmol/L Potassium (3.5-5.1) mmol/L Chloride (98-107) mmol/L Carbon Dioxide (22-30) mmol/L Anion Gap mmol/L BUN (9-20) mg/dL Creatinine (0.66-1.25) mg/dL Est GFR (CKD-EPI)AfAm (>60 ml/min/1.73 sqM) Est GFR (CKD-EPI)NonAf (>60 ml/min/1.73 sqM) Glucose (74-99) mg/dL Calcium (8.4-10.2) mg/dL Magnesium (1.6-2.3) mg/dL Total Bilirubin (0.2-1.3) mg/dL AST (17-59) U/L ALT (4-49) U/L Alkaline Phosphatase (38-126) U/L Troponin I <0.012 (0.000-0.034) ng/mL NT-Pro-B Natriuret Pep pg/mL Total Protein (6.3-8.2) g/dL Albumin (3.5-5.0) g/dL - EKG Data -: EKG Interpreted by Me EKG Comments: EKG was obtained due to complaint of shortness of breath, EKG was obtained at 3:21 AM, rate is 55 rhythm is narrow complex regular bradycardia no discernible P waves noted concerning for slow junctional rhythm versus A. fib with slow ventricular response, no acute ST elevations or depressions no evidence of acute ischemia or infarction. Disposition Clinical Impression: COPD exacerbation Disposition: HOME SELF-CARE Condition: Stable Instructions (If sedation given, give patient instructions): COPD (Chronic Obstructive Pulmonary Disease) (DC) Is patient prescribed a controlled substance at d/c from ED?: No Referrals: Tanesha Long MD [Primary Care Provider] - 1-2 days
[2019-04-04 03:32] LABS: Basophils % (A) 0 %; Eosinophils # (A) 0.1 k/uL (0-0.7); Eosinophils % (A) 1 %; HCT 45.2 % (39.0-53.0); HGB 14.6 gm/dL (13.0-17.5); Lymphocytes # (A) 2.6 k/uL (1.0-4.8); Lymphocytes % (A) 31 %; MCH 30.8 pg (25.0-35.0); MCHC 32.3 g/dL (31.0-37.0); MCV 95.3 fL (80.0-100.0); Mean Platelet Volume 7.9; Monocytes # (A) 0.6 k/uL (0-1.0); Monocytes % (A) 7 %; Neutrophils # (A) 4.9 k/uL (1.3-7.7); Neutrophils % (A) 59 %; Platelet Count 184 k/uL (150-450); RBC 4.75 m/uL (4.30-5.90); RDW 13.4 % (11.5-15.5); WBC 8.3 k/uL (3.8-10.6)
--- NOTE | 2019-04-04 03:40 | XR ---
EXAMINATION TYPE: XR chest 2V DATE OF EXAM: 04/04/2019 COMPARISON: 03/01/2019 HISTORY: Preop TECHNIQUE: FINDINGS: Heart and mediastinum are normal. Lungs are clear of infiltrate. Diaphragm is normal. Bony thorax appears normal. There are chest leads. IMPRESSION: No active cardiopulmonary disease. No change.
[2019-04-04 03:41] LABS: INR 2.1 (<1.2); Prothrombin Time 20.4 sec (9.0-12.0)
[2019-04-04 03:46] LABS: Albumin 3.9 g/dL (3.5-5.0); Calcium 9.1 mg/dL (8.4-10.2); Magnesium 2.1 mg/dL (1.6-2.3); Potassium 4.5 mmol/L (3.5-5.1); Total Bilirubin 0.5 mg/dL (0.2-1.3); Total Protein 6.6 g/dL (6.3-8.2)
[2019-04-04 04:57] VITALS: RESP 20
[2019-04-04 04:58] VITALS: BP 126/72; PULSE 46
== END 2019-04-04 05:23 | disposition home or self-care (01) ==
LOC: EC 03:03
DX: J44.1 Chronic obstructive pulmonary disease with (acute) exacerbation (principal); E78.5 Hyperlipidemia, unspecified; E11.9 Type 2 diabetes mellitus without complications; I48.91 Unspecified atrial fibrillation; I11.9 Hypertensive heart disease without heart failure; N40.0 Benign prostatic hyperplasia without lower urinary tract symptoms; M10.9 Gout, unspecified; F17.200 Nicotine dependence, unspecified, uncomplicated; Z79.01 Long term (current) use of anticoagulants; Z79.51 Long term (current) use of inhaled steroids; Z79.84 Long term (current) use of oral hypoglycemic drugs; Z79.899 Other long term (current) drug therapy; Z86.718 Personal history of other venous thrombosis and embolism; Z98.42 Cataract extraction status, left eye; Z98.41 Cataract extraction status, right eye; Z96.652 Presence of left artificial knee joint
CPT/HCPCS: 36415; 71046; 80053; 83735; 83880; 84484; 85025; 85610; 85730; 93005; 94640; 99285

== ENCOUNTER 2020-02-18 18:46 | Inpatient (IN) | payer OTHER ==
[2020-02-18] MEDS ORDERED: LORazepam 2 MG/ML INJ IV STA (19:03)
[2020-02-18] MEDS ORDERED: ALBUTEROL NEBULIZED 2.5 MG/3 ML INHALATION STA (19:03)
[2020-02-18] MEDS ORDERED: IPRATROPIUM 0.5 MG/2.5 ML NEBU INHALATION STA (19:03)
[2020-02-18] MEDS ORDERED: SODIUM CHLORIDE 0.9% 1,000 ML IV STA (19:03)
--- NOTE | 2020-02-18 19:14 | ED ---
SOB HPI - General Chief Complaint: Shortness of Breath Stated Complaint: KATHERYN Time Seen by Provider: 02/18/20 18:53 Source: patient, RN notes reviewed, old records reviewed Mode of arrival: wheelchair Limitations: no limitations - History of Present Illness Initial Comments: This is a 64-year-old male DF for evaluation of shortness of breath recent diagn osis of PE known history of COPD states he feels pretty similar to that. Patient does have again recent hospital admission for the PE felt better upon discharge is follow-up with pulmonology tomorrow but states the shortness of breath and then some anxiety kept him up overnight in his blood sugar has been running high MD Complaint: shortness of breath, cough, pain with inspiration -: days(s) Severity: moderate Severity scale (1-10): 5 Quality: dull Consistency: intermittent Improves With: oxygen Worsens With: exertion, movement Known History Of: COPD, other (History of recent PE) Context: recent URI, recent illness Associated Symptoms: chest pain, pain with inspiration, cough Treatments Prior to Arrival: none - Related Data Home Medications Medication Instructions Recorded Confirmed allopurinoL [Zyloprim] 100 mg PO DAILY 08/08/14 02/24/20 Atorvastatin [Lipitor] 40 mg PO HS 10/21/17 02/24/20 Glimepiride [Amaryl] 2 mg PO BID-W/MEALS 10/21/17 02/24/20 Montelukast [Singulair] 10 mg PO HS 10/21/17 02/24/20 Sotalol [Betapace] 120 mg PO BID 10/21/17 02/24/20 Spironolactone [Aldactone] 25 mg PO DAILY 10/21/17 02/24/20 amLODIPine [Norvasc] 10 mg PO HS 10/21/17 02/24/20 Albuterol Sulfate [Proair Hfa] 2 puff INHALATION RT-QID PRN 02/18/20 02/24/20 Gabapentin [Neurontin] 300 mg PO HS 02/18/20 02/24/20 Gabapentin [Neurontin] 600 mg PO DAILY 02/18/20 02/24/20 Hydrocodone/Acetaminophen [[place] 1 tab PO BID 02/18/20 02/24/20 10-325] Terazosin HCl 5 mg PO HS 02/18/20 02/24/20 Valsartan 320 mg PO DAILY 02/18/20 02/24/20 Apixaban [Eliquis Starter Pack See Taper PO DIRECTED 02/24/20 02/24/20 (for VTE)] Budesonide-Formot 160-4.5 Mcg 2 puff INHALATION RT-BID 02/24/20 02/24/20 [Symbicort 160-4.5 Mcg Inhaler] Bumetanide [BUMEX] 1 mg PO BID 02/24/20 02/24/20 Previous Rx's Medication Instructions Recorded Aspirin EC [Ecotrin Low Dose] 81 mg PO DAILY tablet. 08/09/14 Apixaban [Eliquis] 10 mg PO BID #74 tab 02/19/20 predniSONE [Deltasone] 40 mg PO DAILY #10 tab 02/19/20 Allergies Allergy/AdvReac Type Severity Reaction Status Date / Time No Known Allergies Allergy Verified 02/24/20 08:10 Review of Systems ROS Statement: Those systems with pertinent positive or pertinent negative responses have been documented in the HPI. ROS Other: All systems not noted in ROS Statement are negative. Past Medical History Past Medical History: Atrial Fibrillation, COPD, Diabetes Mellitus, Deep Vein Thrombosis (DVT), Hyperlipidemia, Hypertension, Osteoarthritis (OA), Prostate Disorder Additional Past Medical History / Comment(s): Hypertension and hypertensive cardio vascular disease, hypokalemia, benign prostatic hypertrophy, diabetes mellitus type 2, osteoarthritis, overweight, chronic tobacco use and dependence, COPD, gout., kidneys tones History of Any Multi-Drug Resistant Organisms: None Reported Past Surgical History: Cholecystectomy, Joint Replacement Additional Past Surgical History / Comment(s): Cholecystectomy with hernia repair about 2 weeks ago, Bilateral cataract surgery, left total knee arthroplasty with second arthroscopic knee surgery, left leg open reduction and internal fixation. Past Anesthesia/Blood Transfusion Reactions: No Reported Reaction Past Psychological History: No Psychological Hx Reported Smoking Status: Current every day smoker Past Alcohol Use History: None Reported Past Drug Use History: None Reported - Past Family History Father History Unknown: Yes Family Medical History: Cancer Additional Family Medical History / Comment(s): Father has history of melanoma 3. Mother History Unknown: Yes Family Medical History: Cancer Additional Family Medical History / Comment(s): Mother at age 64 from cancer. Brother(s) Family Medical History: No Reported History Additional Family Medical History / Comment(s): Patient has 1 brother with no major medical problems. Sister(s) Family Medical History: No Reported History Additional Family Medical History / Comment(s): Patient has 2 sisters and mother from drug overdose after chronic pain syndrome from low back pain. General Exam Limitations: no limitations General appearance: alert, in no apparent distress Head exam: Present: atraumatic, normocephalic, normal inspection Eye exam: Present: normal appearance, PERRL, EOMI. Absent: scleral icterus, conjunctival injection, periorbital swelling ENT exam: Present: normal exam, mucous membranes moist Neck exam: Present: normal inspection. Absent: tenderness, meningismus, lymphadenopathy Respiratory exam: Present: normal lung sounds bilaterally. Absent: respiratory distress, wheezes, rales, rhonchi, stridor Cardiovascular Exam: Present: regular rate, normal rhythm, normal heart sounds. Absent: systolic murmur, diastolic murmur, rubs, gallop, clicks GI/Abdominal exam: Present: soft, normal bowel sounds. Absent: distended, tenderness, guarding, rebound, rigid Extremities exam: Present: normal inspection, full ROM, normal capillary refill. Absent: tenderness, pedal edema, joint swelling, calf tenderness Back exam: Present: normal inspection Neurological exam: Present: alert, oriented X3, CN II-XII intact Psychiatric exam: Present: normal affect, normal mood Skin exam: Present: warm, dry, intact, normal color. Absent: rash Course Vital Signs 02/18/20 02/18/20 02/18/20 18:47 19:29 19:41 Temperature 98.5 F Pulse Rate 72 63 60 Respiratory 22 Rate Blood Pressure 171/78 O2 Sat by Pulse 98 Oximetry 02/18/20 02/18/20 02/18/20 19:42 19:53 20:36 Temperature 98.0 F Pulse Rate 60 66 57 L Respiratory 18 Rate Blood Pressure 139/55 O2 Sat by Pulse 97 Oximetry 02/18/20 21:10 Temperature Pulse Rate 60 Respiratory 20 Rate Blood Pressure 155/78 O2 Sat by Pulse 100 Oximetry - Reevaluation(s) Reevaluation #1: Medical record is reviewed Patient reevaluated feeling fine, symptoms improved Recent inpatient hospitalization is been reviewed Patient informed results questions have been answered Medical Decision Making - Medical Decision Making 64 male to the ER for evaluation regarding significant COPD exacerbation does have chest pain no recent diagnosis of PE. Patient will be admitted for persistent shortness of breath - Lab Data Result diagrams: 02/18/20 19:28 02/18/20 19:28 Lab Results 02/18/20 02/18/20 02/18/20 Range/Units 19:28 19:28 19:28 WBC 8.4 (3.8-10.6) k/uL RBC 4.52 (4.30-5.90) m/uL Hgb 13.9 (13.0-17.5) gm/dL Hct 42.5 (39.0-53.0) % MCV 94.1 (80.0-100.0) fL MCH 30.8 (25.0-35.0) pg MCHC 32.7 (31.0-37.0) g/dL RDW 13.9 (11.5-15.5) % Plt Count 199 (150-450) k/uL MPV 7.3 Neutrophils % 69 % Lymphocytes % 20 % Monocytes % 7 % Eosinophils % 2 % Basophils % 0 % Neutrophils # 5.8 (1.3-7.7) k/uL Lymphocytes # 1.7 (1.0-4.8) k/uL Monocytes # 0.6 (0-1.0) k/uL Eosinophils # 0.1 (0-0.7) k/uL Basophils # 0.0 (0-0.2) k/uL PT 13.8 H (9.0-12.0) sec INR 1.4 H (<1.2) APTT 29.8 (22.0-30.0) sec Sodium 136 L (137-145) mmol/L Potassium 4.5 (3.5-5.1) mmol/L Chloride 105 (98-107) mmol/L Carbon Dioxide 25 (22-30) mmol/L Anion Gap 6 mmol/L BUN 27 H (9-20) mg/dL Creatinine 0.94 (0.66-1.25) mg/dL Est GFR (CKD-EPI)AfAm >90 (>60 ml/min/1.73 sqM) Est GFR (CKD-EPI)NonAf 87 (>60 ml/min/1.73 sqM) Glucose 212 H (74-99) mg/dL POC Glucose (mg/dL) (75-99) mg/dL POC Glu Commercial [employer] ID Estimated [address] Glu mg/dL Hemoglobin A1c (4.0-6.0) % Plasma Lactic Acid Mani (0.7-2.0) mmol/L Calcium 9.1 (8.4-10.2) mg/dL Magnesium 2.1 (1.6-2.3) mg/dL Total Bilirubin 0.4 (0.2-1.3) mg/dL AST 20 (17-59) U/L ALT 18 (4-49) U/L Alkaline Phosphatase 103 (38-126) U/L Creatine Kinase 172 H (55-170) U/L Troponin I (0.000-0.034) ng/mL NT-Pro-B Natriuret Pep pg/mL Total Protein 6.5 (6.3-8.2) g/dL Albumin 3.8 (3.5-5.0) g/dL 02/18/20 02/18/20 02/18/20 Range/Units 19:28 19:28 19:28 WBC (3.8-10.6) k/uL RBC (4.30-5.90) m/uL Hgb (13.0-17.5) gm/dL Hct (39.0-53.0) % MCV (80.0-100.0) fL MCH (25.0-35.0) pg MCHC (31.0-37.0) g/dL RDW (11.5-15.5) % Plt Count (150-450) k/uL MPV Neutrophils % % Lymphocytes % % Monocytes % % Eosinophils % % Basophils % % Neutrophils # (1.3-7.7) k/uL Lymphocytes # (1.0-4.8) k/uL Monocytes # (0-1.0) k/uL Eosinophils # (0-0.7) k/uL Basophils # (0-0.2) k/uL PT (9.0-12.0) sec INR (<1.2) APTT (22.0-30.0) sec Sodium (137-145) mmol/L Potassium (3.5-5.1) mmol/L Chloride (98-107) mmol/L Carbon Dioxide (22-30) mmol/L Anion Gap mmol/L BUN (9-20) mg/dL Creatinine (0.66-1.25) mg/dL Est GFR (CKD-EPI)AfAm (>60 ml/min/1.73 sqM) Est GFR (CKD-EPI)NonAf (>60 ml/min/1.73 sqM) Glucose (74-99) mg/dL POC Glucose (mg/dL) (75-99) mg/dL POC Glu Commercial Loan Officer ID Estimated Ave Glu mg/dL Hemoglobin A1c (4.0-6.0) % Plasma Lactic Acid Mani 1.8 (0.7-2.0) mmol/L Calcium (8.4-10.2) mg/dL Magnesium (1.6-2.3) mg/dL Total Bilirubin (0.2-1.3) mg/dL AST (17-59) U/L ALT (4-49) U/L Alkaline Phosphatase (38-126) U/L Creatine Kinase (55-170) U/L Troponin I <0.012 (0.000-0.034) ng/mL NT-Pro-B Natriuret Pep 183 pg/mL Total Protein (6.3-8.2) g/dL Albumin (3.5-5.0) g/dL 02/18/20 02/19/20 02/19/20 Range/Units 22:21 06:23 06:54 WBC (3.8-10.6) k/uL RBC (4.30-5.90) m/uL Hgb (13.0-17.5) gm/dL Hct (39.0-53.0) % MCV (80.0-100.0) fL MCH (25.0-35.0) pg MCHC (31.0-37.0) g/dL RDW (11.5-15.5) % Plt Count (150-450) k/uL MPV Neutrophils % % Lymphocytes % % Monocytes % % Eosinophils % % Basophils % % Neutrophils # (1.3-7.7) k/uL Lymphocytes # (1.0-4.8) k/uL Monocytes # (0-1.0) k/uL Eosinophils # (0-0.7) k/uL Basophils # (0-0.2) k/uL PT (9.0-12.0) sec INR (<1.2) APTT (22.0-30.0) sec Sodium (137-145) mmol/L Potassium (3.5-5.1) mmol/L Chloride (98-107) mmol/L Carbon Dioxide (22-30) mmol/L Anion Gap mmol/L BUN (9-20) mg/dL Creatinine (0.66-1.25) mg/dL Est GFR (CKD-EPI)AfAm (>60 ml/min/1.73 sqM) Est GFR (CKD-EPI)NonAf (>60 ml/min/1.73 sqM) Glucose (74-99) mg/dL POC Glucose (mg/dL) 135 H 289 H (75-99) mg/dL POC Glu Commercial Loan Officer July Restrepo [address] Glu mg/dL 209 Hemoglobin A1c 8.9 H (4.0-6.0) % Plasma Lactic Acid Mani (0.7-2.0) mmol/L Calcium (8.4-10.2) mg/dL Magnesium (1.6-2.3) mg/dL Total Bilirubin (0.2-1.3) mg/dL AST (17-59) U/L ALT (4-49) U/L Alkaline Phosphatase (38-126) U/L Creatine Kinase (55-170) U/L Troponin I (0.000-0.034) ng/mL NT-Pro-B Natriuret Pep pg/mL Total Protein (6.3-8.2) g/dL Albumin (3.5-5.0) g/dL 02/19/20 02/19/20 Range/Units 06:54 11:32 WBC (3.8-10.6) k/uL RBC (4.30-5.90) m/uL Hgb (13.0-17.5) gm/dL Hct (39.0-53.0) % MCV (80.0-100.0) fL MCH (25.0-35.0) pg MCHC (31.0-37.0) g/dL RDW (11.5-15.5) % Plt Count (150-450) k/uL MPV Neutrophils % % Lymphocytes % % Monocytes % % Eosinophils % % Basophils % % Neutrophils # (1.3-7.7) k/uL Lymphocytes # (1.0-4.8) k/uL Monocytes # (0-1.0) k/uL Eosinophils # (0-0.7) k/uL Basophils # (0-0.2) k/uL PT 12.2 H (9.0-12.0) sec INR 1.2 H (<1.2) APTT (22.0-30.0) sec Sodium (137-145) mmol/L Potassium (3.5-5.1) mmol/L Chloride (98-107) mmol/L Carbon Dioxide (22-30) mmol/L Anion Gap mmol/L BUN (9-20) mg/dL Creatinine (0.66-1.25) mg/dL Est GFR (CKD-EPI)AfAm (>60 ml/min/1.73 sqM) Est GFR (CKD-EPI)NonAf (>60 ml/min/1.73 sqM) Glucose (74-99) mg/dL POC Glucose (mg/dL) 446 H (75-99) mg/dL POC Glu Commercial Loan Officer ID Lizette Herrera [address] Glu mg/dL Hemoglobin A1c (4.0-6.0) % Plasma Lactic Acid Mani (0.7-2.0) mmol/L Calcium (8.4-10.2) mg/dL Magnesium (1.6-2.3) mg/dL Total Bilirubin (0.2-1.3) mg/dL AST (17-59) U/L ALT (4-49) U/L Alkaline Phosphatase (38-126) U/L Creatine Kinase (55-170) U/L Troponin I (0.000-0.034) ng/mL NT-Pro-B Natriuret Pep pg/mL Total Protein (6.3-8.2) g/dL Albumin (3.5-5.0) g/dL - EKG Data -: EKG Interpreted by Me (EKG is sinus rhythm 62 AR 154 QRS 80 QTC 414) - Radiology Data Radiology results: report reviewed (Chest x-rays negative for acute disease), image reviewed Disposition Clinical Impression: Acute exacerbation of chronic obstructive pulmonary disease Disposition: ADMITTED IP TO THIS [facility] Condition: Good Is patient prescribed a controlled substance at d/c from ED?: No
[2020-02-18 19:39] LABS: Basophils % (A) 0 %; Eosinophils # (A) 0.1 k/uL (0-0.7); Eosinophils % (A) 2 %; HCT 42.5 % (39.0-53.0); HGB 13.9 gm/dL (13.0-17.5); Lymphocytes # (A) 1.7 k/uL (1.0-4.8); Lymphocytes % (A) 20 %; MCH 30.8 pg (25.0-35.0); MCHC 32.7 g/dL (31.0-37.0); MCV 94.1 fL (80.0-100.0); Mean Platelet Volume 7.3; Monocytes # (A) 0.6 k/uL (0-1.0); Monocytes % (A) 7 %; Neutrophils # (A) 5.8 k/uL (1.3-7.7); Neutrophils % (A) 69 %; Platelet Count 199 k/uL (150-450); RBC 4.52 m/uL (4.30-5.90); RDW 13.9 % (11.5-15.5); WBC 8.4 k/uL (3.8-10.6)
--- NOTE | 2020-02-18 19:42 | XR ---
EXAMINATION TYPE: XR chest 1V portable DATE OF EXAM: 02/18/2020 COMPARISON: 04/04/2019 HISTORY: Chest pain TECHNIQUE: Single view FINDINGS: Heart is normal. Lungs are clear of consolidation. There are no hilar masses. Costophrenic angles are clear. IMPRESSION: No active cardiopulmonary disease. Normal heart. No change.
[2020-02-18 19:45] LABS: INR 1.4 (<1.2); Partial Thromboplastin Time 29.8 sec (22.0-30.0); Prothrombin Time 13.8 sec (9.0-12.0)
[2020-02-18 19:50] LABS: ALT 18 U/L (4-49); AST 20 U/L (17-59); African American GFR (CKD) >90 (>60 ml/min/1.73 sqM); Albumin 3.8 g/dL (3.5-5.0); Alkaline Phosphatase 103 U/L (38-126); Anion Gap 6 mmol/L; Blood Urea Nitrogen 27 mg/dL (9-20); Calcium 9.1 mg/dL (8.4-10.2); Carbon Dioxide 25 mmol/L (22-30); Chloride 105 mmol/L (98-107); Creatine Kinase 172 U/L (55-170); Glucose 212 mg/dL (74-99); Magnesium 2.1 mg/dL (1.6-2.3); Non-African American GFR(CKD) 87 (>60 ml/min/1.73 sqM); Potassium 4.5 mmol/L (3.5-5.1); Sodium 136 mmol/L (137-145); Total Bilirubin 0.4 mg/dL (0.2-1.3); Total Protein 6.5 g/dL (6.3-8.2)
[2020-02-18] MEDS ORDERED: IPRATROPIUM-ALBUTEROL 3 ML NEB INHALATION STA (21:16)
[2020-02-18] MEDS ORDERED: MORPHINE SULFATE 2 MG/ML SYRINGE IVP STA (21:16)
[2020-02-18] MEDS ORDERED: MORPHINE SULFATE 2 MG/ML SYRINGE IVP PRN (21:16)
[2020-02-18] MEDS ORDERED: methylPREDNISolone SOD SUCCI 125 MG/2 ML VIAL IV STA (21:16)
[2020-02-18 22:25] LABS: Glucose,Whole Blood 135 mg/dL (75-99)
[2020-02-18] MEDS ORDERED: WARFARIN 7.5 MG TAB PO SCH (23:00)
[2020-02-18] MEDS ORDERED: DOXAZOSIN 4 MG TAB PO SCH (23:00)
[2020-02-18] MEDS ORDERED: ATORVASTATIN 40 MG TAB PO SCH (23:00)
[2020-02-18] MEDS ORDERED: MONTELUKAST 10 MG TAB PO SCH (23:00)
[2020-02-18] MEDS ORDERED: GABAPENTIN 300 MG CAP PO SCH (23:00)
[2020-02-18] MEDS ORDERED: amLODIPine 10 MG TAB PO SCH (23:00)
[2020-02-18] MEDS: methylPREDNISolone SOD SUCCI 125 MG/2 ML VIAL IV SCH (23:37)
[2020-02-18] MEDS: SOTALOL 120 MG TAB PO SCH (23:58)
[2020-02-19] MEDS: IPRATROPIUM-ALBUTEROL 3 ML NEB INHALATION PRN ×2 (00:58→15:18)
[2020-02-19] MEDS ORDERED: ALPRAZolam 0.25 MG TAB PO PRN (02:26)
[2020-02-19 06:26] LABS: Glucose,Whole Blood 289 mg/dL (75-99)
[2020-02-19] MEDS: methylPREDNISolone SOD SUCCI 125 MG/2 ML VIAL IV SCH (06:31)
[2020-02-19] MEDS: INSULIN ASPART (NovoLOG) 100 UNIT/ML VIAL SQ SCH ×3 (06:32→16:12)
[2020-02-19 07:13] LABS: INR 1.2 (<1.2); Prothrombin Time 12.2 sec (9.0-12.0)
[2020-02-19] MEDS ORDERED: FUROSEMIDE 40 MG TAB PO SCH (07:30)
[2020-02-19] MEDS: ALBUTEROL NEBULIZED 2.5 MG/3 ML INHALATION SCH ×3 (08:02→15:17)
[2020-02-19 08:40] VITALS: RESP 20
[2020-02-19] MEDS: SOTALOL 120 MG TAB PO SCH (08:46)
[2020-02-19] MEDS ORDERED: ASPIRIN 81 MG PO SCH (09:00)
[2020-02-19] MEDS ORDERED: SPIRONOLACTONE 25 MG TAB PO SCH (09:00)
[2020-02-19] MEDS ORDERED: HYDROcodone/APAP 10-325MG 1 EACH TAB PO SCH (09:00)
[2020-02-19] MEDS ORDERED: GABAPENTIN 300 MG CAP PO SCH (09:00)
[2020-02-19] MEDS ORDERED: allopurinoL 100 MG TAB PO SCH (09:00)
[2020-02-19] MEDS ORDERED: VALSARTAN 160 MG TAB PO SCH (09:00)
[2020-02-19] MEDS ORDERED: ATORVASTATIN 40 MG TAB PO SCH (09:00)
--- NOTE | 2020-02-19 10:38 | CT ---
EXAMINATION TYPE: CT angio chest DATE OF EXAM: 02/19/2020 9:50 AM COMPARISON: CTA chest August 08, 2014 HISTORY: Difficulty breathing, subtherapeutic INR CT DLP: 827.1 mGycm Automated exposure control for dose reduction was used. CONTRAST: CTA scan of the thorax is performed with IV Contrast, patient injected with 100 mL of Isovue 370, pul monary embolism protocol. MIP images are created and reviewed. FINDINGS: LUNGS: Exam suboptimal as patient unable to hold breath. There is focal left lingular linear scarring and/or atelectasis. No suspicious focal consolidation. No pleural effusion or pneumothorax. No suspi cious masses. MEDIASTINUM: There is suboptimal bolus with near equal contrast in right and left heart systems and h eterogeneity. No central pulmonary embolism but there is probable smaller peripheral emboli in segmen jennifer and subsegmental distributions. For reference partial occlusive thrombus in the right middle lobe branch axial image 68. There are prominent bilateral hilar lymph nodes nodes. No cardiomegaly or pericardial effusion is seen. Coronary artery calcification is present. No right ventricular dilatati on. OTHER: Bilateral gynecomastia is seen. Cholecystectomy clips. IMPRESSION: 1. Suboptimal study with probable bilateral acute pulmonary emboli. No CT evidence for RV strain. 2. No suspicious acute pulmonary infiltrate. A Yellow level critical message alert has been initiated for Gerald Desir via the Register My Info Critical Results System on 02/19/2020 10:13 AM. This message alert has been sent to Gerald Desir via the preferences provided by the clinician for the receipt of Radiology Critical Findings. Message ID [id number].
--- NOTE | 2020-02-19 11:33 | P.CNPUL ---
History of Present Illness Consult date: 02/19/20 Requesting physician: Rasheed Pink Reason for consult: dyspnea, COPD Chief complaint: Shortness of breath History of present illness: This is a very pleasant 64-year-old gentleman who follows with Dr. Long as his primary care provider. He has a history of paroxysmal atrial fibrillation anticoagulated with warfarin, hypertension, hypertensive cardiovascular disease, hyperlipidemia, benign prostatic hypertrophy, diabetes mellitus type 2 with diabetic neuropathy, gout, history of DVT, history of nephrolithiasis, morbid obesity. He also has a history of chronic obstructive pulmonary disease and chronic and ongoing tobacco dependence. He has obstructive sleep apnea with an AHI of 34 and had previously been on CPAP at a pressure of 9. He has not been very compliant with it the past year or so. He follows with Dr. Russ in our office. He has been on Advair, Singulair, pro-air. Yesterday he developed a rather sudden onset of shortness of breath and chest tightness. No significant aggravating factors. No significant trigger. Chest x-ray reveals no active cardiopulmonary disease. Normal heart. He is seen today in consultation on the observation unit. He is awake and alert in no acute distress. Currently maintaining O2 saturations in the 90s on room air. No IV fluids. He had previously been on Eliquis. More recently had been on warfarin. Initial INR 1.4. Today's INR 1.2. White count 8.4. Hemoglobin 13.9. Sodium 136. Potassium 4.5. Creatinine 0.94. Troponin negative times one. ProBNP 183. He's been initiated on DuoNeb inhalations, IV Solu-Medrol, Singulair. Review of Systems REVIEW OF SYSTEMS: CONSTITUTIONAL: Denies any recent significant weight loss or weight gain. EYES: Denies change in vision. EARS, NOSE, MOUTH, THROAT: Denies headaches, denies sore throat. CARDIOVASCULAR: Denies chest pain, palpitations or syncopal episodes. RESPIRATORY: Positive for shortness of breath, cough, congestion no hemoptysis. GASTROINTESTINAL: Denies change in appetite, denies abdominal pain GENITOURINARY: Denies hematuria, denies infections. MUSKULOSKELETAL: Denies pain, denies swelling. INTEGUMENTARY: Denies rash, denies eczema. NEUROLOGICAL: Denies recent memory loss, no recent seizure activity. PSYCHIATRIC: Denies anxiety, denies depression. HEMATOLOGIC/LYMPHATIC: Denies anemia, denies enlarged lymph nodes. Past Medical History Past Medical History: Atrial Fibrillation, COPD, Diabetes Mellitus, Deep Vein Thrombosis (DVT), Hyperlipidemia, Hypertension, Osteoarthritis (OA), Prostate Disorder Additional Past Medical History / Comment(s): Hypertension and hypertensive cardio vascular disease, hypokalemia, benign prostatic hypertrophy, diabetes mellitus type 2, osteoarthritis, overweight, chronic tobacco use and dependence, COPD, gout., kidneys tones History of Any Multi-Drug Resistant Organisms: None Reported Past Surgical History: Cholecystectomy, Joint Replacement Additional Past Surgical History / Comment(s): Cholecystectomy with hernia repair about 2 weeks ago, Bilateral cataract surgery, left total knee arthroplasty with second arthroscopic knee surgery, left leg open reduction and internal fixation. Past Anesthesia/Blood Transfusion Reactions: No Reported Reaction Past Psychological History: No Psychological Hx Reported Smoking Status: Current every day smoker Past Alcohol Use History: None Reported Additional Past Alcohol Use History / Comment(s): Patient is smoker one pack per day since he was 14 years of age. He drinks alcohol occasionally. Past Drug Use History: None Reported - Past Family History Father History Unknown: Yes Family Medical History: Cancer Additional Family Medical History / Comment(s): Father has history of melanoma 3. Mother History Unknown: Yes Family Medical History: Cancer Additional Family Medical History / Comment(s): Mother at age 64 from cancer. Brother(s) Family Medical History: No Reported History Additional Family Medical History / Comment(s): Patient has 1 brother with no major medical problems. Sister(s) Family Medical History: No Reported History Additional Family Medical History / Comment(s): Patient has 2 sisters and mother from drug overdose after chronic pain syndrome from low back pain. Medications and Allergies Home Medications Medication Instructions Recorded Confirmed Type allopurinoL [Zyloprim] 100 mg PO DAILY 08/08/14 02/18/20 History Aspirin EC [Ecotrin Low Dose] 81 mg PO DAILY tablet. 08/09/14 02/18/20 Rx Atorvastatin [Lipitor] 40 mg PO HS 10/21/17 02/18/20 History Glimepiride [Amaryl] 2 mg PO BID-W/MEALS 10/21/17 02/18/20 History Montelukast [Singulair] 10 mg PO HS 10/21/17 02/18/20 History Sotalol [Betapace] 120 mg PO BID 10/21/17 02/18/20 History Spironolactone [Aldactone] 25 mg PO DAILY 10/21/17 02/18/20 History amLODIPine [Norvasc] 10 mg PO HS 10/21/17 02/18/20 History Albuterol Sulfate [Proair Hfa] 2 puff INHALATION RT-QID PRN 02/18/20 02/18/20 Hi story Atorvastatin [Lipitor] 40 mg PO DAILY 02/18/20 02/18/20 History Furosemide [Lasix] 40 mg PO BID 02/18/20 02/18/20 History Gabapentin [Neurontin] 300 mg PO HS 02/18/20 02/18/20 History Gabapentin [Neurontin] 600 mg PO DAILY 02/18/20 02/18/20 History Hydrocodone/Acetaminophen [[place] 1 tab PO BID 02/18/20 02/18/20 History 10-325] Terazosin HCl 5 mg PO HS 02/18/20 02/18/20 History Valsartan 320 mg PO DAILY 02/18/20 02/18/20 History Warfarin Sodium [[place]] 7.5 mg PO HS 02/18/20 02/18/20 History Allergies Allergy/AdvReac Type Severity Reaction Status Date / Time No Known Allergies Allergy Verified 02/18/20 21:16 Physical Exam Vitals: Vital Signs Temp Pulse Pulse Resp BP BP Pulse Ox 02/19/20 09:48 66 142/70 95 02/19/20 08:58 20 02/19/20 08:39 97.4 F L 62 20 145/72 96 02/19/20 08:12 68 02/19/20 08:04 60 02/19/20 02:44 97.6 F 59 L 18 152/76 96 02/19/20 02:35 18 02/19/20 01:15 64 02/19/20 01:04 98 02/19/20 00:58 62 02/18/20 22:04 97.7 F 55 L 18 128/68 96 02/18/20 21:10 60 20 155/78 100 02/18/20 20:36 98.0 F 57 L 18 139/55 97 02/18/20 19:53 66 02/18/20 19:42 60 02/18/20 19:41 60 02/18/20 19:29 63 02/18/20 18:47 98.5 F 72 22 171/78 98 Intake and Output 02/18/20 02/19/20 02/19/20 22:59 06:59 14:59 Intake Total 400 Balance 400 Intake: Oral 400 Other: Voiding Method Toilet Toilet # Voids 1 2 Weight 117.934 kg GENERAL EXAM: Alert, active, pleasant 64-year-old gentleman, on room air, comfortable in no apparent distress. HEAD: Normocephalic. EYES: Normal reaction of pupils, equal size. NOSE: Clear with pink turbinates. THROAT: No erythema or exudates. NECK: No masses, no JVD. CHEST: No chest wall deformity. LUNGS: Equal air entry with no crackles, wheeze, rhonchi or dullness. CVS: S1 and S2 normal with no audible murmur, regular rhythm. ABDOMEN: No hepatosplenomegaly, normal bowel sounds, no guarding or rigidity. SPINE: No scoliosis or deformity SKIN: No rashes CENTRAL NERVOUS SYSTEM: No focal deficits, tone is normal in all 4 extremities. EXTREMITIES: There is no peripheral edema. No clubbing, no cyanosis. Peripheral pulses are intact. Results - Laboratory Findings CBC and BMP: 02/18/20 19:28 02/18/20 19:28 PT/INR, D-dimer PT 12.2 sec (9.0-12.0) H 02/19/20 06:54 INR 1.2 (<1.2) H 02/19/20 06:54 Abnormal lab findings: Abnormal Labs 02/18/20 02/18/20 02/18/20 19:28 19:28 22:21 PT 13.8 H INR 1.4 H Sodium 136 L BUN 27 H Glucose 212 H POC Glucose (mg/dL) 135 H Creatine Kinase 172 H 02/19/20 02/19/20 06:23 06:54 PT 12.2 H INR 1.2 H Sodium BUN Glucose POC Glucose (mg/dL) 289 H Creatine Kinase - Diagnostic Findings Chest x-ray: image reviewed (No acute pulmonary process) Assessment and Plan Assessment: 1 Acute exacerbation of chronic obstructive pulmonary disease 2 Chronic and ongoing tobacco dependence of greater than 50 years 3 Obstructive sleep apnea with an AHI of 34 previously on CPAP at 9 cm water. Noncompliant in the past year or so. 4 History of atrial fibrillation anticoagulated with warfarin, subtherapeutic. Currently in sinus rhythm 5 Morbid obesity 6 Diabetes mellitus 7 Diabetic neuropathy 8 History of chronic kidney disease 9 Hypertension 10 Degenerative disc disease 11 Hyperlipidemia Plan: The patient was seen and evaluated by Dr. Desir Chest x-ray and labs reviewed We'll obtain a CT angiogram to rule out pulmonary embolism INR subtherapeutic Continue bronchodilators, IV Solu-Medrol Add Symbicort We will continue to follow and make further recommendations based on his clinical status I, the cosigning physician, performed a history & physical examination of the patient. Lungs sounds are clear. Diminished. Maintaining good O2 saturations in the 90s on room air. I discussed the assessment and plan of care with my nurse practitioner, Sapna Mckeon. I attest to the above consultation as dictated by her. Time with Patient: Greater than 30
[2020-02-19 11:34] LABS: Glucose,Whole Blood 446 mg/dL (75-99)
[2020-02-19] MEDS ORDERED: HEPARIN SOD,PORK IN 0.45% NACL 25,000 UNIT in 0.45% NACL 1 250ML.BAG IV SCH (11:45)
[2020-02-19] MEDS ORDERED: INSULIN ASPART (NovoLOG) 100 UNIT/ML VIAL SQ ONE (11:50)
[2020-02-19] MEDS ORDERED: SYMBICORT 160-4.5 MCG INHALER INHALATION SCH (12:00)
[2020-02-19] MEDS ORDERED: HEPARIN SODIUM,PORCINE 5,000 UNIT/ML 1 ML VIAL IV PRN (13:57)
[2020-02-19] MEDS ORDERED: INSULIN DETEMIR (LEVEMIR) 100 UNIT/ML SYR SQ SCH ×2 (14:00→21:00)
--- NOTE | 2020-02-19 14:58 | P.HPIM ---
History of Present Illness H&P Date: 02/19/20 (Both H and P and Discharge summary ) Chief Complaint: SOB, Acute PE , COPD exacerbation This is a 62-year-old male one of Dr. Long with a previous medical history significant for paroxysmal atrial fibrillation on warfarin , hypertension and hypertensive cardiovascular disease, hyperlipidemia, benign prostatic hypertrophy, diabetes mellitus type 2 with diabetic neuropathy, gout, history of DVT And PE, history of COPD tobacco dependence, obstructive sleep apnea follows with Dr. Russ. Presents with sudden onset of shortness of breath and chest tightness that started yesterday evening. Patient tried his inhalers with no relief and decided to come to the hospital. In the admission at about 97.4 pulse 62 and respiratory rate 20 blood pressure 145/72 saturating well on room air 95%. Labs are evaluated patient had a W0.4 INR 1.4 subtherapeutic sodium 136 creatinine 0.94 glucose 212, proBNP 185 troponin times 10.012 lactic acid 1.8. Initial glucose was 135 on admission currently for 446. Pulmonary consulted for evaluation. CT chest this morning after evaluation with pulmonary suggest peripheral pulmonary embolism continue DuoNeb as needed. Patient initiated on heparin drip. Continue Symbicort twice a day for pulmonary. Venous Dopplers ordered lower extremity to rule out DVT. She had not had his INR checked for 6 months. Will switch to eliquis as patient had a Coumadin failure Review of Systems Constitutional: Denies chills, Denies fever, Denies lethargy, Denies malaise, Denies poor appetite, Denies weakness, Denies weight loss Eyes: denies decreased vision, denies diplopia, denies discharge, denies pain Ears: deny: decreased hearing Ears, nose, mouth and throat: Denies dental pain, Denies headache, Denies nasal discharge, Denies nose pain Cardiovascular: Denies chest pain, Denies decreased exercise tolerance, Denies edema, Denies high blood pressure, Denies irregular heart beat, Denies palpitations, Denies paroxysmal nocturnal dyspnea, Denies rapid heart beat, Denies shortness of breath Respiratory: Denies congestion, endorses cough, endorses cough with sputum, endorses dyspnea, Denies home oxygen, endorses wheezing Gastrointestinal: Denies abdominal pain, Denies change in bowel habits, Denies coffee ground emesis, Denies early satiety, Denies excessive gas, Denies heartburn, Denies hematemesis, Denies hematochezia, Denies loss of appetite, Denies nausea, Denies vomiting Genitourinary: Denies dysuria, Denies flank pain, Denies kidney stones, Denies menorrhagia, Denies urgency, Denies urinary frequency Musculoskeletal: Denies gait dysfunction, Denies limitation of motion, Denies morning stiffness, Denies muscle cramps Integumentary: Denies rash, Denies wounds, Denies brittle nails, Denies change in hair/nails, Denies darkening of skin Neurological: Denies balance difficulties, Denies change in speech, Denies double vision, Denies gait dysfunction, Denies loss of vision, Denies motor disturbance, Denies numbness, Denies paralysis, Denies paresthesias, Denies seizures Psychiatric: Denies anxiety, Denies depression Endocrine: Denies excessive sweating, Denies excessive thirst, Denies high blood sugars, Denies palpitations Hematologic/Lymphatic: Denies easy bruising, Denies lymphadenopathy Past Medical History Past Medical History: Atrial Fibrillation, COPD, Diabetes Mellitus, Deep Vein Thrombosis (DVT), Hyperlipidemia, Hypertension, Osteoarthritis (OA), Prostate Disorder Additional Past Medical History / Comment(s): Hypertension and hypertensive cardio vascular disease, hypokalemia, benign prostatic hypertrophy, diabetes mellitus type 2, osteoarthritis, overweight, chronic tobacco use and dependence, COPD, gout., kidneys tones History of Any Multi-Drug Resistant Organisms: None Reported Past Surgical History: Cholecystectomy, Joint Replacement Additional Past Surgical History / Comment(s): Cholecystectomy with hernia repair about 2 weeks ago, Bilateral cataract surgery, left total knee arthroplasty with second arthroscopic knee surgery, left leg open reduction and internal fixation. Past Anesthesia/Blood Transfusion Reactions: No Reported Reaction Past Psychological History: No Psychological Hx Reported Smoking Status: Current every day smoker Past Alcohol Use History: None Reported Additional Past Alcohol Use History / Comment(s): Patient is smoker one pack per day since he was 14 years of age. He drinks alcohol occasionally. Past Drug Use History: None Reported - Past Family History Father History Unknown: Yes Family Medical History: Cancer Additional Family Medical History / Comment(s): Father has history of melanoma 3. Mother History Unknown: Yes Family Medical History: Cancer Additional Family Medical History / Comment(s): Mother at age 64 from cancer. Brother(s) Family Medical History: No Reported History Additional Family Medical History / Comment(s): Patient has 1 brother with no major medical problems. Sister(s) Family Medical History: No Reported History Additional Family Medical History / Comment(s): Patient has 2 sisters and mother from drug overdose after chronic pain syndrome from low back pain. Medications and Allergies Home Medications Medication Instructions Recorded Confirmed Type allopurinoL [Zyloprim] 100 mg PO DAILY 08/08/14 02/18/20 History Aspirin EC [Ecotrin Low Dose] 81 mg PO DAILY tablet. 08/09/14 02/18/20 Rx Atorvastatin [Lipitor] 40 mg PO HS 10/21/17 02/18/20 History Glimepiride [Amaryl] 2 mg PO BID-W/MEALS 10/21/17 02/18/20 History Montelukast [Singulair] 10 mg PO HS 10/21/17 02/18/20 History Sotalol [Betapace] 120 mg PO BID 10/21/17 02/18/20 History Spironolactone [Aldactone] 25 mg PO DAILY 10/21/17 02/18/20 History amLODIPine [Norvasc] 10 mg PO HS 10/21/17 02/18/20 History Albuterol Sulfate [Proair Hfa] 2 puff INHALATION RT-QID PRN 02/18/20 02/18/20 History Atorvastatin [Lipitor] 40 mg PO DAILY 02/18/20 02/18/20 History Furosemide [Lasix] 40 mg PO BID 02/18/20 02/18/20 History Gabapentin [Neurontin] 300 mg PO HS 02/18/20 02/18/20 History Gabapentin [Neurontin] 600 mg PO DAILY 02/18/20 02/18/20 History Hydrocodone/Acetaminophen [[place] 1 tab PO BID 02/18/20 02/18/20 History 10-325] Terazosin HCl 5 mg PO HS 02/18/20 02/18/20 History Valsartan 320 mg PO DAILY 02/18/20 02/18/20 History Apixaban [Eliquis] 10 mg PO BID #74 tab 02/19/20 Rx Budesonide-Formot 160-4.5 Mcg 2 puff INHALATION BID #1 inhaler 02/19/20 Rx [Symbicort 160-4.5 Mcg Inhaler] Budesonide-Formot 160-4.5 Mcg 2 puff INHALATION BID #1 inhaler 02/19/20 Rx [Symbicort 160-4.5 Mcg Inhaler] predniSONE [Deltasone] 40 mg PO DAILY #10 tab 02/19/20 Rx Allergies Allergy/AdvReac Type Severity Reaction Status Date / Time No Known Allergies Allergy Verified 02/18/20 21:16 Physical Exam Vitals: Vital Signs Temp Pulse Pulse Resp BP BP Pulse Ox 02/19/20 11:30 68 02/19/20 11:24 64 02/19/20 09:48 66 142/70 95 02/19/20 08:58 20 02/19/20 08:39 97.4 F L 62 20 145/72 96 02/19/20 08:12 68 02/19/20 08:04 60 02/19/20 02:44 97.6 F 59 L 18 152/76 96 02/19/20 02:35 18 02/19/20 01:15 64 02/19/20 01:04 98 02/19/20 00:58 62 02/18/20 22:04 97.7 F 55 L 18 128/68 96 02/18/20 21:10 60 20 155/78 100 02/18/20 20:36 98.0 F 57 L 18 139/55 97 02/18/20 19:53 66 02/18/20 19:42 60 02/18/20 19:41 60 02/18/20 19:29 63 02/18/20 18:47 98.5 F 72 22 171/78 98 Intake and Output 02/18/20 02/19/20 02/19/20 22:59 06:59 14:59 Intake Total 600 Balance 600 Intake: Oral 600 Other: Voiding Method Toilet Toilet # Voids 1 2 Weight 117.934 kg - Constitutional General appearance: cooperative, no acute distress, obese - EENT Eyes: anicteric sclerae, PERRLA, normal appearance ENT: hearing grossly normal - Neck Neck: no lymphadenopathy, normal ROM, no other, no rigidity, no stridor, no thyromegaly - Respiratory Respiratory: bilateral: wheezing right posterior lobe decerased air entry left post lobe - Cardiovascular Rhythm: regular Heart sounds: normal: S1, S2 Abnormal Heart Sounds: no systolic murmur, no diastolic murmur, no rub, no S3 Gallop, no S4 Gallop, no click, no other - Gastrointestinal General gastrointestinal: normal bowel sounds, soft - Integumentary Integumentary: no rash - Neurologic Neurologic: CNII-XII intact - Musculoskeletal Musculoskeletal: gait normal, strength equal bilaterally - Psychiatric Psychiatric: A&O x's 3, appropriate affect Results CBC & Chem 7: 02/18/20 19:28 02/18/20 19:28 Labs: Abnormal Lab Results - Last 24 Hours (Table) 02/18/20 02/18/20 02/18/20 Range/Units 19:28 19:28 22:21 PT 13.8 H (9.0-12.0) sec INR 1.4 H (<1.2) Sodium 136 L (137-145) mmol/L BUN 27 H (9-20) mg/dL Glucose 212 H (74-99) mg/dL POC Glucose (mg/dL) 135 H (75-99) mg/dL Creatine Kinase 172 H (55-170) U/L 02/19/20 02/19/20 02/19/20 Range/Units 06:23 06:54 11:32 PT 12.2 H (9.0-12.0) sec INR 1.2 H (<1.2) Sodium (137-145) mmol/L BUN (9-20) mg/dL Glucose (74-99) mg/dL POC Glucose (mg/dL) 289 H 446 H (75-99) mg/dL Creatine Kinase (55-170) U/L Thrombosis Risk Factor Assmnt - DVT/VTE Prophylaxis DVT/VTE Prophylaxis: Pharmacologic Prophylaxis ordered - Choose All That Apply Each Factor Represents 1 point: Abnormal pulmonary function (COPD), Obesity (BMI >25) Each Risk Factor Represents 2 Points: Age 61-74 years Each Risk Factor Represents 3 Points: History of DVT/PE Thrombosis Risk Factor Assessment Total Risk Factor Score: 7 Thrombosis Risk Factor Assessment Level: High Risk Assessment and Plan Plan: 1 acute shortness of breath secondary to COPD exacerbation and pulmonary embolism. Patient has failed Coumadin and will switch to other questions 10 mg twice daily twice a day for 7 days followed by 5 mg twice daily for 30 days. Continue Symbicort and duoneb as needed. Patient initiated on heparin will be switched to Levaquin as patient is doing well on room air. Prednisone initiated 40 mg daily for 5 days 2. H/o kidney stone with hydronephrosis. stable 3. Incidental finding of small aneurysm on CAT scan that is known. Consult with Dr. Zamora is appreciated. 4. Paroxysmal atrial fibrillation on eliquis, sotalol. 5. Hypertension and hypertensive cardiovascular disease. Continue sotalol, Norvasc, spironolactone, lisinopril and Lasix 6. Hyperlipidemia. Continue atorvastatin. 7. Diabetes mellitus type 2. Continue glimepiride 2 mg with breakfast and one with supper. 8. Diabetic polyneuropathy continue patient on gabapentin 300 mg orally twice every day. 9. Chronic tobacco use and dependence, smoking cessation. 10. BPH. Continue tamsulosin 0.4 mg orally once at bedtime. 11. History of gout continue allopurinol 100 mg orally once every day. 12. Disposition discharged home today
[2020-02-19] MEDS ORDERED: APIXABAN 5 MG TAB PO SCH ×2 (14:59→21:00)
[2020-02-19 15:05] VITALS: BP 150/78; TEMP 97.6
[2020-02-19 15:21] VITALS: PULSE 68
[2020-02-19] MEDS ORDERED: methylPREDNISolone SOD SUCCI 125 MG/2 ML VIAL IV SCH (16:00)
[2020-02-19 16:06] LABS: Glucose,Whole Blood 343 mg/dL (75-99)
[2020-02-19 17:29] LABS: Hemoglobin A1C 8.9 % (4.0-6.0)
== END 2020-02-19 16:46 | disposition home or self-care (01) | DRG 190 ==
LOC: EC 18:46 → 1SOBS 21:16 → OBSVTOIN 02-19 13:50
PROVIDERS: ADMIT Internal Medicine Geriatric Medicine; ATTEND Internal Medicine Geriatric Medicine
DX: J44.1 Chronic obstructive pulmonary disease with (acute) exacerbation (principal); I26.99 Other pulmonary embolism without acute cor pulmonale; E11.22 Type 2 diabetes mellitus with diabetic chronic kidney disease; E11.42 Type 2 diabetes mellitus with diabetic polyneuropathy; I48.0 Paroxysmal atrial fibrillation; E66.01 Morbid (severe) obesity due to excess calories; I13.10 Hypertensive heart and chronic kidney disease without heart failure, with stage 1 through stage 4 chronic kidney disease, or unspecified chronic kidney disease; G47.33 Obstructive sleep apnea (adult) (pediatric); Z68.36 Body mass index [BMI] 36.0-36.9, adult; E78.5 Hyperlipidemia, unspecified; N18.9 Chronic kidney disease, unspecified; N40.0 Benign prostatic hyperplasia without lower urinary tract symptoms; F41.9 Anxiety disorder, unspecified; M19.90 Unspecified osteoarthritis, unspecified site; M10.9 Gout, unspecified; F17.210 Nicotine dependence, cigarettes, uncomplicated; Z91.19 Patient's noncompliance with other medical treatment and regimen; Z71.6 Tobacco abuse counseling; Z79.82 Long term (current) use of aspirin; Z79.84 Long term (current) use of oral hypoglycemic drugs; Z79.01 Long term (current) use of anticoagulants; Z79.891 Long term (current) use of opiate analgesic; Z79.899 Other long term (current) drug therapy; Z86.718 Personal history of other venous thrombosis and embolism; Z87.442 Personal history of urinary calculi; Z87.19 Personal history of other diseases of the digestive system; Z90.49 Acquired absence of other specified parts of digestive tract; Z98.42 Cataract extraction status, left eye; Z98.41 Cataract extraction status, right eye; Z96.652 Presence of left artificial knee joint; Z98.890 Other specified postprocedural states; Z80.8 Family history of malignant neoplasm of other organs or systems; Z82.69 Family history of other diseases of the musculoskeletal system and connective tissue; Z81.4 Family history of other substance abuse and dependence
CPT/HCPCS: 36415; 71045; 71275; 80053; 82550; 83036; 83605; 83735; 83880; 84484; 85025; 85610; 85730; 87040; 93005; 94640; 94760; 96361; 96374; 99285

== ENCOUNTER 2020-02-24 00:03 | Observation (INO) | payer OTHER ==
[2020-02-24] MEDS ORDERED: SODIUM CHLORIDE 0.9% 500 ML 500 ML IV STA (00:18)
[2020-02-24] MEDS ORDERED: ALBUTEROL NEBULIZED 2.5 MG/3 ML INHALATION STA (00:18)
[2020-02-24] MEDS ORDERED: IPRATROPIUM 0.5 MG/2.5 ML NEBU INHALATION STA (00:18)
[2020-02-24] MEDS ORDERED: SODIUM CHLORIDE 0.9% 1,000 ML IV STA ×2 (00:18→01:40)
--- NOTE | 2020-02-24 00:27 | ED ---
SOB HPI - General Chief Complaint: Shortness of Breath Stated Complaint: KATHERYN Time Seen by Provider: 02/24/20 00:10 Source: patient, RN notes reviewed, old records reviewed Mode of arrival: wheelchair Limitations: no limitations - History of Present Illness Initial Comments: This is a 62-year-old male DF for evaluation patient Dese for evaluation of shor tness of a recent inpatient consultation. Patient has persistent PE as well as had COPD exacerbation. Patient scheduled for continued evaluation, and pulmonology evaluation tomorrow MD Complaint: shortness of breath, cough -: days(s) Severity: mild Severity scale (1-10): 3 Consistency: constant Improves With: nothing Worsens With: nothing Known History Of: COPD, other (Positive PE) Context: recent URI, recent illness Associated Symptoms: denies other symptoms Treatments Prior to Arrival: none - Related Data Home Medications Medication Instructions Recorded Confirmed allopurinoL [Zyloprim] 100 mg PO DAILY 08/08/14 02/24/20 Atorvastatin [Lipitor] 40 mg PO HS 10/21/17 02/24/20 Glimepiride [Amaryl] 2 mg PO BID-W/MEALS 10/21/17 02/24/20 Montelukast [Singulair] 10 mg PO HS 10/21/17 02/24/20 Sotalol [Betapace] 120 mg PO BID 10/21/17 02/24/20 Spironolactone [Aldactone] 25 mg PO DAILY 10/21/17 02/24/20 amLODIPine [Norvasc] 10 mg PO HS 10/21/17 02/24/20 Albuterol Sulfate [Proair Hfa] 2 puff INHALATION RT-QID PRN 02/18/20 02/24/20 Gabapentin [Neurontin] 300 mg PO HS 02/18/20 02/24/20 Gabapentin [Neurontin] 600 mg PO DAILY 02/18/20 02/24/20 Hydrocodone/Acetaminophen [[place] 1 tab PO BID 02/18/20 02/24/20 10-325] Terazosin HCl 5 mg PO HS 02/18/20 02/24/20 Valsartan 320 mg PO DAILY 02/18/20 02/24/20 Apixaban [Eliquis Starter Pack See Taper PO DIRECTED 02/24/20 02/24/20 (for VTE)] Budesonide-Formot 160-4.5 Mcg 2 puff INHALATION RT-BID 02/24/20 02/24/20 [Symbicort 160-4.5 Mcg Inhaler] Bumetanide [BUMEX] 1 mg PO BID 02/24/20 02/24/20 Previous Rx's Medication Instructions Recorded Aspirin EC [Ecotrin Low Dose] 81 mg PO DAILY tablet. 08/09/14 Apixaban [Eliquis] 10 mg PO BID #74 tab 02/19/20 predniSONE [Deltasone] 40 mg PO DAILY #10 tab 02/19/20 Allergies Allergy/AdvReac Type Severity Reaction Status Date / Time No Known Allergies Allergy Verified 02/24/20 08:10 Review of Systems ROS Statement: Those systems with pertinent positive or pertinent negative responses have been documented in the HPI. ROS Other: All systems not noted in ROS Statement are negative. Past Medical History Past Medical History: Atrial Fibrillation, COPD, Diabetes Mellitus, Deep Vein Thrombosis (DVT), Hyperlipidemia, Hypertension, Osteoarthritis (OA), Prostate Di sorder Additional Past Medical History / Comment(s): Hypertension and hypertensive cardio vascular disease, hypokalemia, benign prostatic hypertrophy, diabetes mellitus type 2, osteoarthritis, overweight, chronic tobacco use and dependence, COPD, gout., kidneys tones History of Any Multi-Drug Resistant Organisms: None Reported Past Surgical History: Cholecystectomy, Joint Replacement Additional Past Surgical History / Comment(s): Cholecystectomy with hernia repair about 2 weeks ago, Bilateral cataract surgery, left total knee arthroplasty with second arthroscopic knee surgery, left leg open reduction and internal fixation. Past Anesthesia/Blood Transfusion Reactions: No Reported Reaction Past Psychological History: No Psychological Hx Reported Smoking Status: Current every day smoker Past Alcohol Use History: None Reported Past Drug Use History: None Reported - Past Family History Father History Unknown: Yes Family Medical History: Cancer Additional Family Medical History / Comment(s): Father has history of melanoma 3. Mother History Unknown: Yes Family Medical History: Cancer Additional Family Medical History / Comment(s): Mother at age 64 from cancer. Brother(s) Family Medical History: No Reported History Additional Family Medical History / Comment(s): Patient has 1 brother with no major medical problems. Sister(s) Family Medical History: No Reported History Additional Family Medical History / Comment(s): Patient has 2 sisters and mother from drug overdose after chronic pain syndrome from low back pain. General Exam Limitations: no limitations General appearance: alert, in no apparent distress, anxious Head exam: Present: atraumatic, normocephalic, normal inspection Eye exam: Present: normal appearance, PERRL, EOMI. Absent: scleral icterus, conjunctival injection, periorbital swelling ENT exam: Present: normal exam, mucous membranes moist Neck exam: Present: normal inspection. Absent: tenderness, meningismus, lymphadenopathy Respiratory exam: Present: normal lung sounds bilaterally. Absent: respiratory distress, wheezes, rales, rhonchi, stridor Cardiovascular Exam: Present: regular rate, normal rhythm, normal heart sounds. Absent: systolic murmur, diastolic murmur, rubs, gallop, clicks GI/Abdominal exam: Present: soft, normal bowel sounds. Absent: distended, tenderness, guarding, rebound, rigid Extremities exam: Present: normal inspection, full ROM, normal capillary refill. Absent: tenderness, pedal edema, joint swelling, calf tenderness Back exam: Present: normal inspection Neurological exam: Present: alert, oriented X3, CN II-XII intact Psychiatric exam: Present: normal affect, normal mood Skin exam: Present: warm, dry, intact, normal color. Absent: rash Course Vital Signs 02/24/20 02/24/20 02/24/20 00:09 00:40 01:04 Temperature 98.2 F Pulse Rate 60 55 L Pulse Rate [ [employer] ] Respiratory 18 20 Rate Blood Pressure 143/83 O2 Sat by Pulse 96 Oximetry 02/24/20 02/24/20 02/24/20 01:16 01:34 01:47 Temperature Pulse Rate 57 L 54 L 50 L Pulse Rate [ [employer] ] Respiratory 20 Rate Blood Pressure 116/55 O2 Sat by Pulse 99 Oximetry 02/24/20 02/24/20 02:06 02:43 Temperature 98.4 F Pulse Rate 52 L Pulse Rate [ 45 L [employer] ] Respiratory 18 18 Rate Blood Pressure 131/62 O2 Sat by Pulse 99 Oximetry - Reevaluation(s) Reevaluation #1: Medical record is reviewed Inpatient hospitalization is reviewed Patient is in no acute distress Medical Decision Making - Medical Decision Making 64 male DF for evaluation patient is no history of PE with COPD exacerbation. Patient be admitted for continued evaluation of PE. As well as COPD exacerbation - Lab Data Result diagrams: 02/24/20 12:08 02/24/20 12:08 Lab Results 02/24/20 02/24/20 02/24/20 Range/Units 00:45 00:53 00:53 WBC 12.1 H (3.8-10.6) k/uL RBC 4.72 (4.30-5.90) m/uL Hgb 14.5 (13.0-17.5) gm/dL Hct 46.3 (39.0-53.0) % MCV 97.9 (80.0-100.0) fL MCH 30.8 (25.0-35.0) pg MCHC 31.4 (31.0-37.0) g/dL RDW 13.7 (11.5-15.5) % Plt Count 231 (150-450) k/uL MPV 7.6 Neutrophils % 85 % Lymphocytes % 8 % Monocytes % 5 % Eosinophils % 1 % Basophils % 0 % Neutrophils # 10.3 H (1.3-7.7) k/uL Lymphocytes # 1.0 (1.0-4.8) k/uL Monocytes # 0.6 (0-1.0) k/uL Eosinophils # 0.1 (0-0.7) k/uL Basophils # 0.0 (0-0.2) k/uL PT 9.9 (9.0-12.0) sec INR 0.9 (<1.2) APTT 24.4 (22.0-30.0) sec Sodium 128 L (137-145) mmol/L Potassium 5.4 H (3.5-5.1) mmol/L Chloride 94 L (98-107) mmol/L Carbon Dioxide 25 (22-30) mmol/L Anion Gap 9 mmol/L BUN 43 H (9-20) mg/dL Creatinine 1.41 H (0.66-1.25) mg/dL Est GFR (CKD-EPI)AfAm 62 (>60 ml/min/1.73 sqM) Est GFR (CKD-EPI)NonAf 53 (>60 ml/min/1.73 sqM) Glucose 623 H* (74-99) mg/dL Calcium 9.6 (8.4-10.2) mg/dL Magnesium 2.3 (1.6-2.3) mg/dL Total Bilirubin 0.6 (0.2-1.3) mg/dL AST 21 (17-59) U/L ALT 26 (4-49) U/L Alkaline Phosphatase 167 H (38-126) U/L Creatine Kinase 186 H (55-170) U/L Troponin I (0.000-0.034) ng/mL C-Reactive Protein <5.0 (<10.0) mg/L NT-Pro-B Natriuret Pep pg/mL Total Protein 6.7 (6.3-8.2) g/dL Albumin 4.0 (3.5-5.0) g/dL 02/24/20 02/24/20 Range/Units 00:53 00:53 WBC (3.8-10.6) k/uL RBC (4.30-5.90) m/uL Hgb (13.0-17.5) gm/dL Hct (39.0-53.0) % MCV (80.0-100.0) fL MCH (25.0-35.0) pg MCHC (31.0-37.0) g/dL RDW (11.5-15.5) % Plt Count (150-450) k/uL MPV Neutrophils % % Lymphocytes % % Monocytes % % Eosinophils % % Basophils % % Neutrophils # (1.3-7.7) k/uL Lymphocytes # (1.0-4.8) k/uL Monocytes # (0-1.0) k/uL Eosinophils # (0-0.7) k/uL Basophils # (0-0.2) k/uL PT (9.0-12.0) sec INR (<1.2) APTT (22.0-30.0) sec Sodium (137-145) mmol/L Potassium (3.5-5.1) mmol/L Chloride (98-107) mmol/L Carbon Dioxide (22-30) mmol/L Anion Gap mmol/L BUN (9-20) mg/dL Creatinine (0.66-1.25) mg/dL Est GFR (CKD-EPI)AfAm (>60 ml/min/1.73 sqM) Est GFR (CKD-EPI)NonAf (>60 ml/min/1.73 sqM) Glucose (74-99) mg/dL Calcium (8.4-10.2) mg/dL Magnesium (1.6-2.3) mg/dL Total Bilirubin (0.2-1.3) mg/dL AST (17-59) U/L ALT (4-49) U/L Alkaline Phosphatase (38-126) U/L Creatine Kinase (55-170) U/L Troponin I <0.012 (0.000-0.034) ng/mL C-Reactive Protein (<10.0) mg/L NT-Pro-B Natriuret Pep 293 pg/mL Total Protein (6.3-8.2) g/dL Albumin (3.5-5.0) g/dL - EKG Data -: EKG Interpreted by Me (EKG is sinus bradycardia 52 OH 158 QRS 80 QTC 416) - Radiology Data Radiology results: report reviewed (Chest x-rays negative for acute disease), image reviewed Disposition Clinical Impression: Pulmonary embolism, Acute exacerbation of chronic obstructive pulmonary disease, Chest pain Disposition: ADMITTED IP TO THIS HOSP Condition: Good Is patient prescribed a controlled substance at d/c from ED?: No
[2020-02-24 01:01] LABS: Basophils % (A) 0 %; Eosinophils # (A) 0.1 k/uL (0-0.7); Eosinophils % (A) 1 %; HCT 46.3 % (39.0-53.0); HGB 14.5 gm/dL (13.0-17.5); Lymphocytes % (A) 8 %; MCH 30.8 pg (25.0-35.0); MCHC 31.4 g/dL (31.0-37.0); MCV 97.9 fL (80.0-100.0); Mean Platelet Volume 7.6; Monocytes # (A) 0.6 k/uL (0-1.0); Monocytes % (A) 5 %; Neutrophils # (A) 10.3 k/uL (1.3-7.7); Neutrophils % (A) 85 %; Platelet Count 231 k/uL (150-450); RBC 4.72 m/uL (4.30-5.90); RDW 13.7 % (11.5-15.5); WBC 12.1 k/uL (3.8-10.6)
[2020-02-24 01:12] LABS: INR 0.9 (<1.2); Partial Thromboplastin Time 24.4 sec (22.0-30.0); Prothrombin Time 9.9 sec (9.0-12.0)
--- NOTE | 2020-02-24 01:18 | XR ---
EXAM: XR Chest, 1 View CLINICAL HISTORY: ITS.REASON XR Reason: sob TECHNIQUE: Frontal view of the chest. COMPARISON: Chest radiograph on 02/18/2020 FINDINGS: Hardware: None. Lungs/pleura: Normal. No focal consolidation. No pleural effusion or pneumothorax. Heart/mediastinum: Normal. No cardiomegaly. Soft tissues: Unremarkable. Bones: No acute fracture. Upper abdomen: Normal. IMPRESSION: No acute disease identified.
[2020-02-24 01:19] LABS: ALT 26 U/L (4-49); AST 21 U/L (17-59); African American GFR (CKD) 62 (>60 ml/min/1.73 sqM); Alkaline Phosphatase 167 U/L (38-126); Anion Gap 9 mmol/L; Blood Urea Nitrogen 43 mg/dL (9-20); Calcium 9.6 mg/dL (8.4-10.2); Carbon Dioxide 25 mmol/L (22-30); Chloride 94 mmol/L (98-107); Creatine Kinase 186 U/L (55-170); Magnesium 2.3 mg/dL (1.6-2.3); Non-African American GFR(CKD) 53 (>60 ml/min/1.73 sqM); Potassium 5.4 mmol/L (3.5-5.1); Sodium 128 mmol/L (137-145); Total Bilirubin 0.6 mg/dL (0.2-1.3); Total Protein 6.7 g/dL (6.3-8.2)
[2020-02-24] MEDS ORDERED: methylPREDNISolone SOD SUCCI 125 MG/2 ML VIAL IV STA (01:35)
[2020-02-24 01:37] LABS: C Reactive Protein <5.0 mg/L (<10.0); Glucose 623 mg/dL (74-99)
[2020-02-24] MEDS ORDERED: INSULIN REGULAR 100 UNIT/ML VIAL SQ ONE (01:40)
[2020-02-24] MEDS ORDERED: INSULIN REGULAR 100 UNIT/ML VIAL IV ONE (01:40)
[2020-02-24] MEDS ORDERED: SODIUM CHLORIDE 0.9% 1,000 ML IV SCH (01:45)
[2020-02-24 01:50] LABS: Glucose,Whole Blood 516 mg/dL (75-99)
[2020-02-24] MEDS ORDERED: ENOXAPARIN 120 MG/0.8 ML SYRINGE SQ ONE (02:00)
[2020-02-24 02:28] LABS: Glucose,Whole Blood 484 mg/dL (75-99)
[2020-02-24 03:24] LABS: Glucose,Whole Blood 388 mg/dL (75-99)
[2020-02-24] MEDS: methylPREDNISolone SOD SUCCI 125 MG/2 ML VIAL IV SCH ×4 (06:01→21:59)
[2020-02-24 07:00] LABS: Glucose,Whole Blood 311 mg/dL (75-99)
[2020-02-24] MEDS ORDERED: INSULIN ASPART (NovoLOG) 100 UNIT/ML VIAL SQ SCH (07:30)
[2020-02-24] MEDS: IPRATROPIUM-ALBUTEROL 3 ML NEB INHALATION SCH ×4 (07:37→20:22)
[2020-02-24] MEDS ORDERED: ALBUTEROL NEBULIZED 2.5 MG/3 ML INHALATION PRN (08:22)
[2020-02-24] MEDS ORDERED: SOTALOL 120 MG TAB PO SCH (09:00)
[2020-02-24] MEDS ORDERED: GABAPENTIN 300 MG CAP PO SCH ×2 (09:00→21:00)
[2020-02-24] MEDS: ASPIRIN 81 MG PO SCH (09:51)
[2020-02-24] MEDS: BUMETANIDE 1 MG TAB PO SCH ×2 (09:51→21:57)
[2020-02-24] MEDS: SPIRONOLACTONE 25 MG TAB PO SCH (09:51)
[2020-02-24] MEDS: HYDROcodone/APAP 10-325MG 1 EACH TAB PO SCH ×2 (09:53→21:08)
[2020-02-24] MEDS: allopurinoL 100 MG TAB PO SCH (09:53)
[2020-02-24] MEDS: VALSARTAN 160 MG TAB PO SCH (09:53)
[2020-02-24] MEDS: APIXABAN 5 MG TAB PO SCH ×2 (09:54→21:07)
--- NOTE | 2020-02-24 10:27 | ECHOF ---
Referral Reason:right strain MEASUREMENTS -------- HEIGHT: 182.9 cm WEIGHT: 117.9 kg BP: RVIDd: 3.3 cm (< 3.3) IVSd: 1.6 cm (0.6 - 1.1) LVIDd: 5.7 cm (3.9 - 5.3) LVPWd: 1.6 cm (0.6 - 1.1) IVSs: 1.9 cm LVIDs: 4.4 cm LVPWs: 1.3 cm LA Diam: 4.9 cm (2.7 - 3.8) LAESV Index (A-L): 40.98 ml/m Ao Diam: 2.6 cm (2.0 - 3.7) AV Cusp: 1.7 cm (1.5 - 2.6) LA Diam: 5.0 cm (2.7 - 3.8) MV EXCURSION: 27.766 mm (> 18.000) MV EF SLOPE: 86 mm/s (70 - 150) EPSS: 0.5 cm MV E Bandar: 0.72 m/s MV DecT: 231 ms MV A Bandar: 0.86 m/s MV E/A Ratio: 0.84 RAP: 5.00 mmHg RVSP: 12.89 mmHg FINDINGS -------- Sinus rhythm. This was a technically good study. LV size, wall thickness and systolic function are normal, with an EF greater than 55%. The left anel tricular size is normal. The right ventricle is normal in size. LA is severely dilated >40 ml/m2 The right atrial size is normal. The aortic valve is trileaflet, and appears structurally normal. No aortic stenosis or regurgitation. Mild mitral regurgitation is present. Mild tricuspid regurgitation present. Right ventricular systolic pressure is normal at < 35 mmHg. There is no pulmonic regurgitation present. The aortic root size is normal. Echo free space represents a pericardial fat pad. CONCLUSIONS -------- 1. LV size, wall thickness and systolic function are normal, with an EF greater than 55%. 2. The left ventricular size is normal. 3. The right ventricle is normal in size. 4. LA is severely dilated >40 ml/m2 5. The right atrial size is normal. 6. Mild mitral regurgitation is present. 7. Mild tricuspid regurgitation present. 8. The aortic root size is normal. 9. Echo free space represents a pericardial fat pad. DIVISION OPERATIONS SPECIALIST: Tosha Kurtz RDCS
[2020-02-24] MEDS ORDERED: IPRATROPIUM-ALBUTEROL 3 ML NEB INHALATION PRN (11:19)
--- NOTE | 2020-02-24 11:27 | P.HPIM ---
History of Present Illness H&P Date: 02/24/20 HISTORY OF PRESENT ILLNESS This is a 64-year-old male patient of Dr. Long, Dr. Russ and Dr. Hare at [place] for cardiology with a previous medical history significant for paroxysmal atrial fibrillation recently changed from warfarin to eliquis , hypertension and hypertensive cardiovascular disease, hyperlipidemia, benign prostatic hypertrophy, diabetes mellitus type 2 with diabetic neuropathy, chronic gout, history of multiple episodes of DVT and 2 PEs, COPD, tobacco dependence, obstructive sleep apnea unable to tolerate CPAP. Patient was recently hospitalized February 17 overnight at which time he presented with shortness of breath and chest tightness and treated for acute exacerbation of COPD. His INR was subtherapeutic and patient was switched to eliquis. CAT scan of the chest suggested peripheral pulmonary embolism. Patient was discharged home. He now comes pains of chest tightness and squeezing sensation with difficulty breathing. He complains of cough with sputum production of brown and black. He complains of feeling hot and sweaty and dizzy. He states he uses updraft machine at home and this did not help. He states he has been taking his eliquis as directed. Patient presented to [facility] emergency center for evaluation. Pulse ox is 96% on room air, he was afebrile, heart rate 60, blood pressure 143/83. WBC 12.1, hemoglobin 14.5. ProBNP 293. Initial blood sugar 623 and currently at 311. Sodium 128, potassium 5.4, BUN 43 and creatinine 1.41. Baseline creatinine 0.9. EKG was a sinus bradycardia. Chest x-ray showed no acute disease. Patient was started on nebulizer treatments, IV Solu-Medrol and admitted to the [facility] floor with consult to cardiology and pulmonary medicine. Echocardiogram has been added. REVIEW OF SYSTEMS Constitutional: No fever, no chills, reports sweats. No weight change. No weakness, fatigue or lethargy. No daytime sleepiness. EENT: No headache. No blurred vision or double vision, no loss of vision. No loss of Hearing, no ringing in the ears, no dizziness. No nasal drainage or congestion. No epistaxis. No sore throat. Lungs: Reports shortness of breath, Reports cough, Reports sputum production. Reports wheezing. Possible hemoptysis. Cardiovascular: Reports chest pain, no lower extremity edema. No palpitations. No paroxysmal nocturnal dyspnea. No orthopnea. Reports dizziness. No syncopal episodes. Abdominal: No abdominal pain. No nausea, vomiting. No diarrhea. No constipation. No bloody or tarry stools.. No loss of appetite. Genitourinary: No dysuria, increased frequency, urgency. No urinary retention. Musculoskeletal: No myalgias. No muscle weakness, no gait dysfunction, no frequent falls. No back pain. No neck pain. Integumentary: No wounds, no lesions. No rash or pruritus. No unusual bruisin g. No change in hair or nails. Neurologic: No aphasia. No facial droop. No change in mentation. No head injury. No headache. No paralysis. No paresthesia. Psychiatric: No depression. No anxiety. No mood swings. Endocrine: No abnormal blood sugars. No weight change. No excessive sweating or thirst. No cold intolerance. SOCIAL HISTORY Patient is a smoker of one pack per day since he was 14 years of age. He drinks alcohol occasionally. He is single and lives alone. 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 Patient has a nebulizer at home. He does not have oxygen. He is unable to tolerate CPAP. FAMILY HISTORY Father at age 90 from melanoma. Mother at age 58 from bladder cancer with history of breast cancer as well. Patient has 1 brother that from a myocardial infarction. Patient has 2 sisters and both from overdoses. Patient is 2 children with no major medical problems. PHYSICAL EXAMINATION Gen: This is an obese 64-year-old male. He is resting in bed and appears to be comfortable and in no acute distress. HEENT: Head is atraumatic, normocephalic. Pupils equal, round. Sclerae is anicteric. NECK: Supple. No JVD. No lymphadenopathy. No thyromegaly. LUNGS: Diminished with scattered expiratory wheeze. No intercostal retractions. No accessory muscle usage. HEART: Regular rate and rhythm. No murmur. ABDOMEN: Soft. Bowel sounds are present. No masses. No tenderness. EXTREMITIES: No pedal edema. No calf tenderness. Dorsalis pedis palpable bilaterally. NEUROLOGICAL: Patient is awake, alert and oriented x3. Cranial nerves 2 through 12 are grossly intact. ASSESSMENT AND PLAN 1. Acute COPD exacerbation with brown and black sputum production. DuoNeb treatments 4 times daily and as needed, Solu-Medrol 60 mg IV every 6 hours, Symbicort twice daily, Singulair 10 mg at bedtime. Pulmonary medicine consult. 2. Acute kidney injury with chronic kidney disease stage III. Patient was on IV fluids of 100 mL per hour and this will be discontinued. Patient will be resumed on his home medications. Recheck electrolytes and renal function in the morning. 3. Hyponatremia. Patient has received IV fluids overnight. Recheck electrolytes tomorrow morning. 4. History of pulmonary embolism. Patient recently transitioned from Coumadin to eliquis. Patient states he has been compliant with eliquis dosing. 5. Chronic tobacco use and dependence. Smoking cessation discussed with the patient. He does not want nicotine patch as he states this has not worked for him in the past. 6. Paroxysmal atrial fibrillation. Continue eliquis 10 mg twice daily. Hold sotalol dose this morning due to bradycardia. Otherwise continue sotalol tomorrow at 120 mg twice daily. Cardiology consult. 7. Hypertension and hypertensive cardiovascular disease. Continue sotalol, Norvasc, spironolactone, valsartan and bumex. 8. Hyperlipidemia. Continue atorvastatin. 9. Diabetes mellitus type 2, uncontrolled with hyperglycemia. Hemoglobin A1c 8.9. Continue glimepiride 2 mg with breakfast and one with supper. Add Levemir 10 units daily, NovoLog 7 units with meals and NovoLog scale before meals and at bedtime. 10. Diabetic polyneuropathy. Continue gabapentin 600 mg daily and 300 at bedtime. 11. BPH. Continue tamsulosin 0.4 mg orally once at bedtime and Cardura 4 mg at bedtime. 12. Chronic gout. Continue allopurinol 100 mg orally once every day. 13. H/o kidney stone with hydronephrosis. Stable. 14. DVT prophylaxis. Eliquis. 15. GI prophylaxis. Protonix. Patient will be admitted to the hospital for a minimum of 2 night stay. DISCHARGE PLAN Home. Impression and plan of care have been directed as dictated by the signing physician. Loni Diaz nurse practitioner acting as scribe for signing physician. Past Medical History Past Medical History: Atrial Fibrillation, COPD, Diabetes Mellitus, Deep Vein Thrombosis (DVT), Hyperlipidemia, Hypertension, Osteoarthritis (OA), Prostate Disorder Additional Past Medical History / Comment(s): Hypertension and hypertensive cardio vascular disease, hypokalemia, benign prostatic hypertrophy, diabetes mellitus type 2, osteoarthritis, overweight, chronic tobacco use and dependence, COPD, gout., kidneys tones History of Any Multi-Drug Resistant Organisms: None Reported Past Surgical History: Cholecystectomy, Joint Replacement Additional Past Surgical History / Comment(s): Cholecystectomy with hernia repair about 2 weeks ago, Bilateral cataract surgery, left total knee arthroplasty with second arthroscopic knee surgery, left leg open reduction and internal fixation. Past Anesthesia/Blood Transfusion Reactions: No Reported Reaction Past Psychological History: No Psychological Hx Reported Smoking Status: Current every day smoker Past Alcohol Use History: None Reported Additional Past Alcohol Use History / Comment(s): Patient is smoker one pack per day since he was 14 years of age. He drinks alcohol occasionally. Past Drug Use History: None Reported - Past Family History Father History Unknown: Yes Family Medical History: Cancer Additional Family Medical History / Comment(s): Father has history of melanoma 3. Mother History Unknown: Yes Family Medical History: Cancer Additional Family Medical History / Comment(s): Mother at age 64 from cancer. Brother(s) Family Medical History: No Reported History Additional Family Medical History / Comment(s): Patient has 1 brother with no major medical problems. Sister(s) Family Medical History: No Reported History Additional Family Medical History / Comment(s): Patient has 2 sisters and mother from drug overdose after chronic pain syndrome from low back pain. Medications and Allergies Home Medications Medication Instructions Recorded Confirmed Type allopurinoL [Zyloprim] 100 mg PO DAILY 08/08/14 02/24/20 History Aspirin EC [Ecotrin Low Dose] 81 mg PO DAILY tablet. 08/09/14 02/24/20 Rx Atorvastatin [Lipitor] 40 mg PO HS 10/21/17 02/24/20 History Glimepiride [Amaryl] 2 mg PO BID-W/MEALS 10/21/17 02/24/20 History Montelukast [Singulair] 10 mg PO HS 10/21/17 02/24/20 History Sotalol [Betapace] 120 mg PO BID 10/21/17 02/24/20 History Spironolactone [Aldactone] 25 mg PO DAILY 10/21/17 02/24/20 History amLODIPine [Norvasc] 10 mg PO HS 10/21/17 02/24/20 History Albuterol Sulfate [Proair Hfa] 2 puff INHALATION RT-QID PRN 02/18/20 02/24/20 History Gabapentin [Neurontin] 300 mg PO HS 02/18/20 02/24/20 History Gabapentin [Neurontin] 600 mg PO DAILY 02/18/20 02/24/20 History Hydrocodone/Acetaminophen [[place] 1 tab PO BID 02/18/20 02/24/20 History 10-325] Terazosin HCl 5 mg PO HS 02/18/20 02/24/20 History Valsartan 320 mg PO DAILY 02/18/20 02/24/20 History Apixaban [Eliquis] 10 mg PO BID #74 tab 02/19/20 02/24/20 Rx predniSONE [Deltasone] 40 mg PO DAILY #10 tab 02/19/20 02/24/20 Rx Apixaban [Eliquis Starter Pack See Taper PO DIRECTED 02/24/20 02/24/20 History (for VTE)] Budesonide-Formot 160-4.5 Mcg 2 puff INHALATION RT-BID 02/24/20 02/24/20 History [Symbicort 160-4.5 Mcg Inhaler] Bumetanide [BUMEX] 1 mg PO BID 02/24/20 02/24/20 History Allergies Allergy/AdvReac Type Severity Reaction Status Date / Time No Known Allergies Allergy Verified 02/24/20 08:10 Physical Exam Vitals: Vital Signs Temp Pulse Pulse Pulse Resp BP BP 02/24/20 07:54 59 L 02/24/20 07:52 97.9 F 96 16 120/62 02/24/20 07:37 58 L 02/24/20 03:36 97.8 F 45 L 17 120/74 02/24/20 02:43 45 L 18 02/24/20 02:06 98.4 F 52 L 18 131/62 02/24/20 01:47 50 L 02/24/20 01:34 54 L 20 116/55 02/24/20 01:16 57 L 02/24/20 01:04 55 L 02/24/20 00:40 20 02/24/20 00:09 98.2 F 60 18 143/83 Pulse Ox 02/24/20 07:54 02/24/20 07:52 97 02/24/20 07:37 02/24/20 03:36 97 02/24/20 02:43 02/24/20 02:06 99 02/24/20 01:47 02/24/20 01:34 99 02/24/20 01:16 02/24/20 01:04 02/24/20 00:40 02/24/20 00:09 96 Intake and Output 02/23/20 02/24/20 02/24/20 22:59 06:59 14:59 Intake Total 600 Balance 600 Intake: Intake, IV Titration 300 Amount Sodium Chloride 0.9% 1, 300 000 ml @ 100 mls/hr IV . Q10H [facility] Rx#:[id number] Oral 300 Other: Voiding Method Toilet Toilet # Voids 2 # Bowel Movements 1 Weight 117.934 kg Results CBC & Chem 7: 02/24/20 00:45 02/24/20 00:53 Labs: Abnormal Lab Results - Last 24 Hours (Table) 02/24/20 02/24/20 02/24/20 Range/Units 00:45 00:53 01:46 WBC 12.1 H (3.8-10.6) k/uL Neutrophils # 10.3 H (1.3-7.7) k/uL Sodium 128 L (137-145) mmol/L Potassium 5.4 H (3.5-5.1) mmol/L Chloride 94 L (98-107) mmol/L BUN 43 H (9-20) mg/dL Creatinine 1.41 H (0.66-1.25) mg/dL Glucose 623 H* (74-99) mg/dL POC Glucose (mg/dL) 516 H (75-99) mg/dL Alkaline Phosphatase 167 H (38-126) U/L Creatine Kinase 186 H (55-170) U/L 02/24/20 02/24/20 02/24/20 Range/Units 02:24 03:22 06:59 WBC (3.8-10.6) k/uL Neutrophils # (1.3-7.7) k/uL Sodium (137-145) mmol/L Potassium (3.5-5.1) mmol/L Chloride (98-107) mmol/L BUN (9-20) mg/dL Creatinine (0.66-1.25) mg/dL Glucose (74-99) mg/dL POC Glucose (mg/dL) 484 H 388 H 311 H (75-99) mg/dL Alkaline Phosphatase (38-126) U/L Creatine Kinase (55-170) U/L Thrombosis Risk Factor Assmnt - Choose All That Apply Other Risk Factors: Yes Each Risk Factor Represents 2 Points: Age 61-74 years Each Risk Factor Represents 3 Points: History of DVT/PE Thrombosis Risk Factor Assessment Total Risk Factor Score: 5 Thrombosis Risk Factor Assessment Level: High Risk
[2020-02-24 12:13] LABS: Glucose,Whole Blood 325 mg/dL (75-99)
[2020-02-24] MEDS: INSULIN ASPART (NovoLOG) 100 UNIT/ML VIAL SQ SCH ×5 (12:18→21:07)
[2020-02-24 12:21] LABS: HCT 45.3 % (39.0-53.0); HGB 14.7 gm/dL (13.0-17.5); MCH 31.4 pg (25.0-35.0); MCHC 32.4 g/dL (31.0-37.0); MCV 96.9 fL (80.0-100.0); Mean Platelet Volume 7.1; Platelet Count 225 k/uL (150-450); RBC 4.68 m/uL (4.30-5.90); RDW 13.8 % (11.5-15.5); WBC 18.5 k/uL (3.8-10.6)
[2020-02-24 12:39] LABS: African American GFR (CKD) 83 (>60 ml/min/1.73 sqM); Anion Gap 9 mmol/L; Blood Urea Nitrogen 34 mg/dL (9-20); Calcium 9.7 mg/dL (8.4-10.2); Carbon Dioxide 24 mmol/L (22-30); Chloride 101 mmol/L (98-107); Glucose 358 mg/dL (74-99); Magnesium 2.2 mg/dL (1.6-2.3); Non-African American GFR(CKD) 72 (>60 ml/min/1.73 sqM); Potassium 5.3 mmol/L (3.5-5.1); Sodium 134 mmol/L (137-145)
[2020-02-24] MEDS: GLIMEPIRIDE 2 MG TAB PO SCH ×2 (13:02→17:32)
--- NOTE | 2020-02-24 13:09 | CONS ---
CONSULTATION CHIEF COMPLAINT: Shortness of breath. Aravind is a 64-year-old gentleman with history of paroxysmal atrial fibrillation, COPD, hypertension, who was admitted to hospital on 02/19/2020 with shortness of breath and a CAT scan revealed pulmonary embolism. The patient did not have any evidence of RV strain. He was started on Eliquis and was discharged home. He comes back in complaining of shortness of breath and Cardiology has been consulted for the same. An echocardiogram done on this admission shows normal LV function. No evidence of right ventricular enlargement. He does not have chest pain, leg edema, PND or orthopnea. His symptoms are improving with breathing treatments and a test has been sent out for coronavirus side. His EKG shows sinus rhythm with sinus bradycardia. The patient's rhythm strips show that he is having intermittent episodes of wide-complex tachycardia that may either represent episodes of idioventricular rhythm or intermittent episodes of rate dependent left bundle branch block. However, at the time of my evaluation patient's symptoms are improving with nebulizers. At the time of my evaluation this morning he states that he is feeling better. Prior to coming into hospital last time patient used to be on Coumadin and was subtherapeutic anticoagulated. His EKG does not reveal ischemic changes. Troponin is negative. BNP is normal. The patient had extremely poorly controlled blood sugars with a blood sugar of 623. I believe his shortness of breath is noncardiac in origin. I do not believe patient had another pulmonary embolism on this admission as the RV is not enlarged and does not show any strain and seems more like COPD related issue. I agree with checking him for coronavirus and I am going to cut back on the dose of sotalol, which could be contributing to his shortness of breath and certainly contributing to his bradycardia. PAST MEDICAL HISTORY: Significant for paroxysmal atrial fibrillation, COPD, hypertension, diabetes. CURRENT MEDICATIONS: Current medications include Eliquis 10 b.i.d., aspirin, ProAir, Lipitor, Neurontin, Amaryl, Betapace, Aldactone, Zyloprim, valsartan, Norvasc, Bumex. FAMILY HISTORY: Negative for premature coronary artery disease. SOCIAL HISTORY: He denies any EtOH abuse. Significant for smoking. REVIEW OF SYSTEMS: HEENT is unremarkable. CARDIAC: As described above. RESPIRATORY: As described above. GI: Negative. GENITOURINARY: Negative. ALLERGY/IMMUNOLOGY: Negative. SKIN: Negative. MUSCULOSKELETAL: Negative. ENDOCRINE: Negative. DERM: Negative. CONSTITUTIONAL: Negative. ONCOLOGICAL: Negative. PULMONARY NURSE PRACTITIONER: Negative. Rest of the system review is not relevant. PHYSICAL EXAMINATION: Patient is afebrile. Heart rate is 60 beats per minute. Blood pressure is 150/47. Respiratory rate is 18. Chest exam did not reveal any rhonchi or crackles. Heart exam reveals first and second heart sounds. No gallop. Abdomen is soft. Exam of extremities did not reveal any edema. Peripheral pulses are felt. PULMONARY NURSE PRACTITIONER exam did not reveal focal neurological deficits. EKG shows sinus bradycardia with poor R-wave progression. Echocardiogram shows normal LV systolic function without any evidence of right ventricular enlargement with mild mitral and tricuspid regurgitation. ASSESSMENT: 1. Shortness of breath probably secondary to a combination of problems including the pulmonary embolism and underlying chronic obstructive pulmonary disease. 2. Paroxysmal atrial fibrillation. 3. Hypertension. 4. Uncontrolled diabetes. PLAN: I am going to cut back on the dose of sotalol at this time. Continue rest of his medications. Please control his diabetes better. MMODL / IJN: [id number] /
--- NOTE | 2020-02-24 13:23 | P.CNPUL ---
History of Present Illness Consult date: 02/24/20 Reason for consult: dyspnea, chest pain, pulmonary embolism Chief complaint: Shortness of breath, chest tightness History of present illness: 64-year-old white male patient of Dr. Long, has a past medical history of [employer] D, chronic smoker, obstructive sleep apnea noncompliant with CPAP, chronic A. fib previously on warfarin currently on Eliquis, diabetes mellitus type 2, hypertension, CK-MB, degenerative disc disease, who was recently hospitalized from 02/18/2020 to 02/19/2020, when she presented with similar symptoms of increasing shortness of breath, chest tightness, he was diagnosed with acute COPD exacerbation, and he was also found to have probable bilateral acute pulmonary emboli with no evidence of RV strain. Patient at the time was on Coumadin and his levels were subtherapeutic, and he was switched to Eliquis and discharged home. Chest x-ray on admission showed no acute pulmonary disease. EKG showed sinus bradycardia, with evidence of septal infarct of undetermined age. Room air pulse ox was 96%, patient is wearing some supplemental oxygen at 2 L at times, he is afebrile, hemodynamically he is stable. Denied any fever or chills, he denies any exposure to COVID 19. Lab data was reviewed showing white blood cell count 12.1, hemoglobin is 14.5, INR is 0.9, sodium was 128, potassium is 5.4, chloride is 94, CO2 is 25, BUN is 43, creatinine is 1.4, his glucose level was very elevated on admission at 623, AST and ALT were within normal limits, and alkaline phosphatase was elevated at 167, CK was 186, troponin was less than 0.012, CRP was less than 5, proBNP was normal at 293. His echoca rdiogram showed EF greater than 55%, LV size and wall thickness and systolic function within normal limits, left atrium was severely dilated, there was mild mitral regurgitation, mild tricuspid regurgitation, aortic valve was trileaflet and structurally normal no aortic stenosis or regurgitation, there was no evidence of pulmonary hypertension, with right ventricular systolic pressure of less than 35 mmHg. Patient sounds wheezy and physical exam, complains of cough with production of brown sputum, at times he is feeling hot, sweaty and dizzy. His been using his [employer] machine at home, he is being compliant with his Eliquis. Patient has not been checked for COVID 19, and we will send a rapid COVID 19 PCR. He was started on IV steroids, inhaled bronchodilators. Review of Systems All systems: negative Constitutional: Denies chills, Denies fever Eyes: denies blurred vision, denies pain Ears, nose, mouth and throat: Denies headache, Denies sore throat Cardiovascular: Denies chest pain, Denies shortness of breath Respiratory: Reports dyspnea, Reports pleurisy, Reports wheezing, Denies cough Gastrointestinal: Denies abdominal pain, Denies diarrhea, Denies nausea, Denies vomiting Musculoskeletal: Denies myalgias Integumentary: Denies pruritus, Denies rash Neurological: Denies numbness, Denies weakness Psychiatric: Denies anxiety, Denies depression Endocrine: Denies fatigue, Denies weight change Past Medical History Past Medical History: Atrial Fibrillation, COPD, Diabetes Mellitus, Deep Vein Thrombosis (DVT), Hyperlipidemia, Hypertension, Osteoarthritis (OA), Prostate Disorder Additional Past Medical History / Comment(s): Hypertension and hypertensive cardio vascular disease, hypokalemia, benign prostatic hypertrophy, diabetes mellitus type 2, osteoarthritis, overweight, chronic tobacco use and dependence, COPD, gout., kidneys tones History of Any Multi-Drug Resistant Organisms: None Reported Past Surgical History: Cholecystectomy, Joint Replacement Additional Past Surgical History / Comment(s): Cholecystectomy with hernia repair about 2 weeks ago, Bilateral cataract surgery, left total knee arthroplasty with second arthroscopic knee surgery, left leg open reduction and internal fixation. Past Anesthesia/Blood Transfusion Reactions: No Reported Reaction Past Psychological History: No Psychological Hx Reported Smoking Status: Current every day smoker Past Alcohol Use History: None Reported Additional Past Alcohol Use History / Comment(s): Patient is smoker one pack per day since he was 14 years of age. He drinks alcohol occasionally. Past Drug Use History: None Reported - Past Family History Father History Unknown: Yes Family Medical History: Cancer Additional Family Medical History / Comment(s): Father has history of melanoma 3. Mother History Unknown: Yes Family Medical History: Cancer Additional Family Medical History / Comment(s): Mother at age 64 from cancer. Brother(s) Family Medical History: No Reported History Additional Family Medical History / Comment(s): Patient has 1 brother with no major medical problems. Sister(s) Family Medical History: No Reported History Additional Family Medical History / Comment(s): Patient has 2 sisters and mother from drug overdose after chronic pain syndrome from low back pain. Medications and Allergies Home Medications Medication Instructions Recorded Confirmed Type allopurinoL [Zyloprim] 100 mg PO DAILY 08/08/14 02/24/20 History Aspirin EC [Ecotrin Low Dose] 81 mg PO DAILY tablet. 08/09/14 02/24/20 Rx Atorvastatin [Lipitor] 40 mg PO HS 10/21/17 02/24/20 History Glimepiride [Amaryl] 2 mg PO BID-W/MEALS 10/21/17 02/24/20 History Montelukast [Singulair] 10 mg PO HS 10/21/17 02/24/20 History Sotalol [Betapace] 120 mg PO BID 10/21/17 02/24/20 History Spironolactone [Aldactone] 25 mg PO DAILY 10/21/17 02/24/20 History amLODIPine [Norvasc] 10 mg PO HS 10/21/17 02/24/20 History Albuterol Sulfate [Proair Hfa] 2 puff INHALATION RT-QID PRN 02/18/20 02/24/20 History Gabapentin [Neurontin] 300 mg PO HS 02/18/20 02/24/20 History Gabapentin [Neurontin] 600 mg PO DAILY 02/18/20 02/24/20 History Hydrocodone/Acetaminophen [Barney 1 tab PO BID 02/18/20 02/24/20 History 10-325] Terazosin HCl 5 mg PO HS 02/18/20 02/24/20 History Valsartan 320 mg PO DAILY 02/18/20 02/24/20 History Apixaban [Eliquis] 10 mg PO BID #74 tab 02/19/20 02/24/20 Rx predniSONE [Deltasone] 40 mg PO DAILY #10 tab 02/19/20 02/24/20 Rx Apixaban [Eliquis Starter Pack See Taper PO DIRECTED 02/24/20 02/24/20 History (for VTE)] Budesonide-Formot 160-4.5 Mcg 2 puff INHALATION RT-BID 02/24/20 02/24/20 History [Symbicort 160-4.5 Mcg Inhaler] Bumetanide [BUMEX] 1 mg PO BID 02/24/20 02/24/20 History Allergies Allergy/AdvReac Type Severity Reaction Status Date / Time No Known Allergies Allergy Verified 02/24/20 08:10 Physical Exam Vitals: Vital Signs Temp Pulse Pulse Pulse Resp BP BP 02/24/20 11:30 60 02/24/20 11:18 60 02/24/20 10:44 47 L 155/47 02/24/20 07:54 59 L 02/24/20 07:52 97.9 F 96 16 120/62 02/24/20 07:37 58 L 02/24/20 03:36 97.8 F 45 L 17 120/74 02/24/20 02:43 45 L 18 02/24/20 02:06 98.4 F 52 L 18 131/62 02/24/20 01:47 50 L 02/24/20 01:34 54 L 20 116/55 02/24/20 01:16 57 L 02/24/20 01:04 55 L 02/24/20 00:40 20 02/24/20 00:09 98.2 F 60 18 143/83 Pulse Ox 02/24/20 11:30 02/24/20 11:18 02/24/20 10:44 02/24/20 07:54 02/24/20 07:52 97 02/24/20 07:37 02/24/20 03:36 97 02/24/20 02:43 02/24/20 02:06 99 02/24/20 01:47 02/24/20 01:34 99 02/24/20 01:16 02/24/20 01:04 02/24/20 00:40 02/24/20 00:09 96 Intake and Output 02/23/20 02/24/20 02/24/20 22:59 06:59 14:59 Intake Total 600 Balance 600 Intake: Intake, IV Titration 300 Amount Sodium Chloride 0.9% 1, 300 000 ml @ 100 mls/hr IV . Q10H [facility] Rx#:[id number] Oral 300 Other: Voiding Method Toilet Toilet # Voids 2 # Bowel Movements 1 Weight 117.934 kg GENERAL EXAM: Alert, very pleasant, 64-year-old white male, up on edge of bed, currently on 2 L of oxygen a pulse ox of 99% comfortable in no apparent distress. HEAD: Normocephalic/atraumatic. EYES: Normal reaction of pupils, equal size. Conjunctiva pink, sclera white. NOSE: Clear with pink turbinates. THROAT: No erythema or exudates. NECK: No masses, no JVD, no thyroid enlargement, no adenopathy. CHEST: No chest wall deformity. Symmetrical expansion. LUNGS: Equal air entry with wheezes, rhonchi CVS: Regular rate and rhythm, normal S1 and S2, no gallops, no murmurs, no rubs ABDOMEN: Soft, nontender. No hepatosplenomegaly, normal bowel sounds, no guarding or rigidity. EXTREMITIES: No clubbing, no edema, no cyanosis, 2+ pulses and upper and lower extremities. MUSCULOSKELETAL: Muscle strength and tone normal. SPINE: No scoliosis or deformity SKIN: No rashes CENTRAL NERVOUS SYSTEM: Alert and oriented -3. No focal deficits, tone is normal in all 4 extremities. PSYCHIATRIC: Alert and oriented -3. Appropriate affect. Intact judgment and insight. Results - Laboratory Findings CBC and BMP: 02/24/20 12:08 02/24/20 12:08 PT/INR, D-dimer PT 9.9 sec (9.0-12.0) 02/24/20 00:53 INR 0.9 (<1.2) 02/24/20 00:53 Abnormal lab findings: Abnormal Labs 02/24/20 02/24/20 02/24/20 00:45 00:53 01:46 WBC 12.1 H Neutrophils # 10.3 H Sodium 128 L Potassium 5.4 H Chloride 94 L BUN 43 H Creatinine 1.41 H Glucose 623 H* POC Glucose (mg/dL) 516 H Alkaline Phosphatase 167 H Creatine Kinase 186 H 02/24/20 02/24/20 02/24/20 02:24 03:22 06:59 WBC Neutrophils # Sodium Potassium Chloride BUN Creatinine Glucose POC Glucose (mg/dL) 484 H 388 H 311 H Alkaline Phosphatase Creatine Kinase 02/24/20 02/24/20 02/24/20 12:08 12:08 12:11 WBC 18.5 H Neutrophils # Sodium 134 L Potassium 5.3 H Chloride BUN 34 H Creatinine Glucose 358 H POC Glucose (mg/dL) 325 H Alkaline Phosphatase Creatine Kinase - Diagnostic Findings Chest x-ray: report reviewed, image reviewed Additional studies: Echocardiogram reviewed Assessment and Plan Plan: Assessment: #1. Acute exacerbation of chronic obstructive pulmonary disease, chest x-ray showing no acute pulmonary process. #2. Recent hospitalization for acute COPD exacerbation, and bilateral pulmonary emboli with no CT evidence for RV strain, patient was switched from Coumadin to Eliquis and sent home on 02/19/2020 #3. Hyponatremia, likely hypovolemic, improved #4. History of paroxysmal atrial fibrillation, currently in sinus rhythm, previously on warfarin, recently switched to Eliquis #5. Previous history of pulmonary embolism and DVT #6. Hypertension #7. Hyperlipidemia #8. Benign prostatic hypertrophy #9. Diabetes mellitus type 2 with diabetic neuropathy #10. History of nephrolithiasis #11. Morbid obesity #12. Chronic and ongoing tobacco dependence, patient carries a [id number] smoking history #13. History of sleep apnea, and has not been tolerating CPAP therapy Plan: Continue current treatment including IV steroids, bronchodilators, chest x-ray shows no acute process, patient is already on oral anticoagulation for his recent history of pulmonary embolism. Hemodynamically stable, echocardiogram reviewed showing no evidence of RV strain, pulmonary hypertension, we'll continue current medical treatment, will send a rapid test for COVID 19, jadyn nue to follow I performed a history & physical examination of the patient and discussed their management with my nurse practitioner, Mague Cabrera. I reviewed the nurse practitioner's note and agree with the documented findings and plan of care. Lung sounds are positive for diffuse wheezes throughout the lung ambriz. The findings and the impression was discussed with the patient. I attest to the documentation by the nurse practitioner. Time with Patient: Greater than 30
[2020-02-24] MEDS: GABAPENTIN 300 MG CAP PO SCH ×2 (16:17→21:08)
[2020-02-24 16:51] LABS: Glucose,Whole Blood 251 mg/dL (75-99)
[2020-02-24] MEDS ORDERED: GLIMEPIRIDE 2 MG TAB PO SCH (17:30)
[2020-02-24] MEDS: SYMBICORT 160-4.5 MCG INHALER INHALATION SCH (20:22)
[2020-02-24 20:51] LABS: Glucose,Whole Blood 268 mg/dL (75-99)
[2020-02-24] MEDS ORDERED: DOXAZOSIN 4 MG TAB PO SCH (21:00)
[2020-02-24] MEDS ORDERED: MONTELUKAST 10 MG TAB PO SCH (21:00)
[2020-02-24] MEDS ORDERED: ATORVASTATIN 40 MG TAB PO SCH (21:00)
[2020-02-24] MEDS ORDERED: amLODIPine 10 MG TAB PO SCH (21:00)
[2020-02-24] MEDS: SOTALOL 80 MG TAB PO SCH (21:57)
[2020-02-24 23:27] LABS: Glucose,Whole Blood 302 mg/dL (75-99)
[2020-02-25] MEDS: methylPREDNISolone SOD SUCCI 125 MG/2 ML VIAL IV SCH (05:14)
[2020-02-25 06:56] LABS: HCT 42.9 % (39.0-53.0); HGB 14.5 gm/dL (13.0-17.5); MCH 31.8 pg (25.0-35.0); MCHC 33.8 g/dL (31.0-37.0); Mean Platelet Volume 7.4; Platelet Count 211 k/uL (150-450); RBC 4.56 m/uL (4.30-5.90); RDW 13.3 % (11.5-15.5)
[2020-02-25] MEDS ORDERED: INSULIN DETEMIR (LEVEMIR) 100 UNIT/ML SYR SQ SCH (07:00)
[2020-02-25 07:05] LABS: Glucose,Whole Blood 282 mg/dL (75-99)
[2020-02-25 07:37] VITALS: BP 144/80; RESP 18; TEMP 98
[2020-02-25] MEDS: APIXABAN 5 MG TAB PO SCH (07:39)
[2020-02-25] MEDS: INSULIN ASPART (NovoLOG) 100 UNIT/ML VIAL SQ SCH ×2 (07:39)
[2020-02-25] MEDS: HYDROcodone/APAP 10-325MG 1 EACH TAB PO SCH (07:40)
[2020-02-25] MEDS: ASPIRIN 81 MG PO SCH (07:40)
[2020-02-25] MEDS: allopurinoL 100 MG TAB PO SCH (07:40)
[2020-02-25] MEDS: SPIRONOLACTONE 25 MG TAB PO SCH (07:41)
[2020-02-25] MEDS: VALSARTAN 160 MG TAB PO SCH (07:42)
[2020-02-25] MEDS: GABAPENTIN 300 MG CAP PO SCH (07:42)
[2020-02-25] MEDS: SOTALOL 80 MG TAB PO SCH (07:42)
[2020-02-25] MEDS: SYMBICORT 160-4.5 MCG INHALER INHALATION SCH (07:57)
[2020-02-25] MEDS: IPRATROPIUM-ALBUTEROL 3 ML NEB INHALATION SCH (07:57)
[2020-02-25 08:00] VITALS: PULSE 66
[2020-02-25] MEDS: GLIMEPIRIDE 2 MG TAB PO SCH (08:33)
[2020-02-25] MEDS: BUMETANIDE 1 MG TAB PO SCH (08:33)
[2020-02-25 09:51] LABS: Glucose,Whole Blood 329 mg/dL (75-99)
--- NOTE | 2020-02-25 09:56 | P.PN ---
Subjective Progress Note Date: 02/25/20 CHIEF COMPLAINT: PE HISTORY OF PRESENT ILLNESS: Patient examined this morning at the bedside. Patient denies chest pain or pressure. He states his shortness of breath has resolved. He remains on Eliquis for anticoagulation. Vital signs are stable. He is anxious to be discharged home today. Beta shirley was decreased yesterday to 80 mg twice a day. Heart rate in the 50s today. Echocardiogram completed revealing ejection fraction greater than 55%, mild mitral regurgitation, and mild tricuspid regurgitation. PHYSICAL EXAM: VITAL SIGNS: Reviewed. GENERAL: Well-developed in no acute distress. HEENT: Head is normocephalic. Pupils are equal, round. Sclerae anicteric. Mucous membranes of the mouth are moist. Neck supple. No JVD or thyromegaly LUNGS: Respirations even and unlabored. Lungs essentially clear to auscultation bilaterally. HEART: Regular rate and rhythm. S1 and S2 heard. ABDOMEN: Soft. Nondistended. Nontender. EXTREMITIES: Normal range of motion. No clubbing or cyanosis. Peripheral pulses intact. No lower extremity edema NEUROLOGIC: Awake and alert. Oriented x 3. ASSESSMENT: Acute bilateral pulmonary emboli Hypertension Hyperlipidemia Diabetes mellitus History of paroxysmal atrial fibrillation COPD PLAN: Continue current cardiac medications Continue Eliquis for anticoagulation Continue telemetry monitoring Patient is stable for discharge from a cardiac perspective. He is to follow up outpatient with his supervisor diagnostic out of [place]. Nurse practitioner note has been reviewed by physician. Signing provider agrees with the documented findings, assessment, and plan of care. Objective - Vital Signs Vital signs: Vital Signs Temp 98.0 F 02/25/20 07:36 Pulse 66 02/25/20 08:10 Resp 18 02/25/20 08:00 BP 144/80 02/25/20 07:36 Pulse Ox 94 L 02/25/20 07:36 Intake & Output 02/24/20 02/25/20 02/25/20 18:59 06:59 18:59 Intake Total 1080 1900 Balance 1080 1900 Intake: Intake, IV Titration 1200 Amount Sodium Chloride 0.9% 1, 1200 000 ml @ 100 mls/hr IV . Q10H [facility] Rx#:[id number] Oral 1080 700 Other: Voiding Method Toilet Toilet Toilet # Voids 3 1 # Bowel Movements 1 - Labs CBC & Chem 7: 02/25/20 06:11 02/24/20 12:08 Labs: Abnormal Lab Results - Last 24 Hours (Table) 02/24/20 02/24/20 02/24/20 Range/Units 12:08 12:08 12:11 WBC 18.5 H (3.8-10.6) k/uL Sodium 134 L (137-145) mmol/L Potassium 5.3 H (3.5-5.1) mmol/L BUN 34 H (9-20) mg/dL Glucose 358 H (74-99) mg/dL POC Glucose (mg/dL) 325 H (75-99) mg/dL 02/24/20 02/24/20 02/24/20 Range/Units 16:49 20:49 23:25 WBC (3.8-10.6) k/uL Sodium (137-145) mmol/L Potassium (3.5-5.1) mmol/L BUN (9-20) mg/dL Glucose (74-99) mg/dL POC Glucose (mg/dL) 251 H 268 H 302 H (75-99) mg/dL 02/25/20 02/25/20 02/25/20 Range/Units 06:11 07:03 09:49 WBC 20.0 H (3.8-10.6) k/uL Sodium (137-145) mmol/L Potassium (3.5-5.1) mmol/L BUN (9-20) mg/dL Glucose (74-99) mg/dL POC Glucose (mg/dL) 282 H 329 H (75-99) mg/dL
[2020-02-25 10:04] LABS: African American GFR (CKD) 74.7 (60.0-200.0); Anion Gap 12.1 mmol/L (4.00-12.00); BUN/Creat Ratio 26.67 Ratio (12.00-20.00); Calcium 9.3 mg/dL (8.7-10.3); Carbon Dioxide 25.9 mmol/L (21.6-31.8); Non-African American GFR(CKD) 64.4 (60.0-200.0); Potassium 4.7 mmol/L (3.5-5.5)
--- NOTE | 2020-02-25 15:37 | P.DS ---
Providers Date of admission: 02/24/20 01:35 Expected date of discharge: 02/25/20 Attending physician: Rasheed Pink Consults: 02/24/20 01:35 Consult Physician Routine Consulting Provider: Adia Russ Consult Reason/Comments: known Do you want consulting provider notified?: Yes Consult Physician Routine Consulting Provider: Rick Stock Consult Reason/Comments: PE Do you want consulting provider notified?: Yes Primary care physician: [facility] Course: HISTORY OF PRESENT ILLNESS This is a 64-year-old male patient of Dr. Long, Dr. Russ and Dr. Hare at [place] for cardiology with a previous medical history significant for paroxysmal atrial fibrillation recently changed from warfarin to eliquis , hypertension and hypertensive cardiovascular disease, hyperlipidemia, benign prostatic hypertrophy, diabetes mellitus type 2 with diabetic neuropathy, chronic gout, history of multiple episodes of DVT and 2 PEs, COPD, tobacco dependence, obstructive sleep apnea unable to tolerate CPAP. Patient was recently hospitalized February 17 overnight at which time he presented with shortness of breath and chest tightness and treated for acute exacerbation of COPD. His INR was subtherapeutic and patient was switched to eliquis. CAT scan of the chest suggested peripheral pulmonary embolism. Patient was discharged home. He now comes pains of chest tightness and squeezing sensation with difficulty breathing. He complains of cough with sputum production of brown and black. He complains of feeling hot and sweaty and dizzy. He states he uses updraft machine at home and this did not help. He states he has been taking his eliquis as directed. Patient presented to [facility] emergency center for evaluation. Pulse ox is 96% on room air, he was afebrile, heart rate 60, blood pressure 143/83. WBC 12.1, hemoglobin 14.5. ProBNP 293. Initial blood sugar 623 and currently at 311. Sodium 128, potassium 5.4, BUN 43 and creatinine 1.41. Baseline creatinine 0.9. EKG was a sinus bradycardia. Chest x-ray showed no acute disease. Patient was started on nebulizer treatments, IV Solu- Medrol and admitted to the MedSur floor with consult to cardiology and pulmonary medicine. Echocardiogram has been added. 02/24: Patient has been seen by cardiology and pulmonary medicine. Echocardiogram reveals EF greater than 55%, LA severely dilated greater than 40 mL per M2. Mild mitral regurgitation, mild tricuspid regurgitation. Patient is stating he does not want to take any steroids as he does not feel it caused him any benefit and it only raises his blood sugars. He is anxious to be discharged home and will be discharged home today in stable condition. ASSESSMENT AND PLAN 1. Acute COPD exacerbation with brown and black sputum production. 2. Acute kidney injury with chronic kidney disease stage III. 3. Hyponatremia. 4. History of pulmonary embolism. 5. Chronic tobacco use and dependence. 6. Paroxysmal atrial fibrillation. 7. Hypertension and hypertensive cardiovascular disease. 8. Hyperlipidemia. 9. Diabetes mellitus type 2, uncontrolled with hyperglycemia. Hemoglobin A1c 8.9. 10. Diabetic polyneuropathy. 11. BPH. 12. Chronic gout. 13. H/o kidney stone with hydronephrosis. Stable. DISCHARGE PLAN Home. Impression and plan of care have been directed as dictated by the signing physician. Loni Diaz nurse practitioner acting as scribe for signing physician. Patient Condition at Discharge: Good Plan - Discharge Summary Discharge Rx Participant: No New Discharge Prescriptions: New Sotalol [Betapace] 80 mg PO BID #60 tab Insulin Glargine,Hum.rec.anlog [Lantus Solostar] 10 unit SQ HS #1 pen [place], Insulin Disposable [Bd Ultra-Fine Pen Needle 4mm 32g] 1 needle SQ DIRECTED #1 box Continue allopurinoL [Zyloprim] 100 mg PO DAILY Aspirin EC [Ecotrin Low Dose] 81 mg PO DAILY tablet. Spironolactone [Aldactone] 25 mg PO DAILY Montelukast [Singulair] 10 mg PO HS Glimepiride [Amaryl] 2 mg PO BID-W/MEALS amLODIPine [Norvasc] 10 mg PO HS Atorvastatin [Lipitor] 40 mg PO HS Valsartan 320 mg PO DAILY Terazosin HCl 5 mg PO HS Albuterol Sulfate [Proair Hfa] 2 puff INHALATION RT-QID PRN PRN Reason: Shortness Of Breath Hydrocodone/Acetaminophen [[place] 10-325] 1 tab PO BID Gabapentin [Neurontin] 300 mg PO HS Gabapentin [Neurontin] 600 mg PO DAILY Apixaban [Eliquis] 10 mg PO BID #74 tab Budesonide-Formot 160-4.5 Mcg [Symbicort 160-4.5 Mcg Inhaler] 2 puff INHALATION RT-BID Bumetanide [BUMEX] 1 mg PO BID Discontinued Sotalol [Betapace] 120 mg PO BID predniSONE [Deltasone] 40 mg PO DAILY #10 tab Apixaban [Eliquis Starter Pack (for VTE)] See Taper PO DIRECTED Discharge Medication List allopurinoL [Zyloprim] 100 mg PO DAILY 08/08/14 [History] Aspirin EC [Ecotrin Low Dose] 81 mg PO DAILY tablet. 08/09/14 [Rx] Atorvastatin [Lipitor] 40 mg PO HS 10/21/17 [History] Glimepiride [Amaryl] 2 mg PO BID-W/MEALS 10/21/17 [History] Montelukast [Singulair] 10 mg PO HS 10/21/17 [History] Spironolactone [Aldactone] 25 mg PO DAILY 10/21/17 [History] amLODIPine [Norvasc] 10 mg PO HS 10/21/17 [History] Albuterol Sulfate [Proair Hfa] 2 puff INHALATION RT-QID PRN 02/18/20 [History] Gabapentin [Neurontin] 300 mg PO HS 02/18/20 [History] Gabapentin [Neurontin] 600 mg PO DAILY 02/18/20 [History] Hydrocodone/Acetaminophen [[place] 10-325] 1 tab PO BID 02/18/20 [History] Terazosin HCl 5 mg PO HS 02/18/20 [History] Valsartan 320 mg PO DAILY 02/18/20 [History] Apixaban [Eliquis] 10 mg PO BID #74 tab 02/19/20 [Rx] Budesonide-Formot 160-4.5 Mcg [Symbicort 160-4.5 Mcg Inhaler] 2 puff INHALATION RT-BID 02/24/20 [History] Bumetanide [BUMEX] 1 mg PO BID 02/24/20 [History] Insulin Glargine,Hum.rec.anlog [Lantus Solostar] 10 unit SQ HS #1 pen 02/25/20 [Rx] [place], Insulin Disposable [Bd Ultra-Fine Pen Needle 4mm 32g] 1 needle SQ DIRECTED #1 box 02/25/20 [Rx] Sotalol [Betapace] 80 mg PO BID #60 tab 02/25/20 [Rx] Follow up Appointment(s)/Referral(s): Tanesha Long MD [Primary Care Provider] - 1 Week Patient Instructions/Handouts: Pulmonary Embolism (DC), Type 2 Diabetes in Adults: New Diagnosis (DC) Discharge Disposition: HOME SELF-CARE
== END 2020-02-25 09:50 | disposition home or self-care (01) ==
LOC: EC 00:03 → 4SSUR 01:35 → INTOOBSV 01:35 → UNDODISIN 02-25 09:50
PROVIDERS: ADMIT Internal Medicine Geriatric Medicine; ATTEND Internal Medicine Geriatric Medicine
DX: J44.1 Chronic obstructive pulmonary disease with (acute) exacerbation (principal); I26.99 Other pulmonary embolism without acute cor pulmonale; I12.9 Hypertensive chronic kidney disease with stage 1 through stage 4 chronic kidney disease, or unspecified chronic kidney disease; E11.22 Type 2 diabetes mellitus with diabetic chronic kidney disease; N18.30 Chronic kidney disease, stage 3 unspecified; N17.9 Acute kidney failure, unspecified; I48.91 Unspecified atrial fibrillation; E11.40 Type 2 diabetes mellitus with diabetic neuropathy, unspecified; E87.1 Hypo-osmolality and hyponatremia; E66.01 Morbid (severe) obesity due to excess calories; Z68.36 Body mass index [BMI] 36.0-36.9, adult; E11.65 Type 2 diabetes mellitus with hyperglycemia; E78.5 Hyperlipidemia, unspecified; I10 Essential (primary) hypertension; M19.90 Unspecified osteoarthritis, unspecified site; Z20.828 Contact with and (suspected) exposure to other viral communicable diseases; N40.0 Benign prostatic hyperplasia without lower urinary tract symptoms; I11.9 Hypertensive heart disease without heart failure; E87.6 Hypokalemia; I44.7 Left bundle-branch block, unspecified; G47.33 Obstructive sleep apnea (adult) (pediatric); Z91.19 Patient's noncompliance with other medical treatment and regimen; I08.1 Rheumatic disorders of both mitral and tricuspid valves; F17.210 Nicotine dependence, cigarettes, uncomplicated; M1A.9XX0 Chronic gout, unspecified, without tophus (tophi); Z87.442 Personal history of urinary calculi; Z90.49 Acquired absence of other specified parts of digestive tract; Z98.890 Other specified postprocedural states; Z98.42 Cataract extraction status, left eye; Z98.41 Cataract extraction status, right eye; Z96.652 Presence of left artificial knee joint; Z81.4 Family history of other substance abuse and dependence; Z80.3 Family history of malignant neoplasm of breast; Z80.52 Family history of malignant neoplasm of bladder; Z79.84 Long term (current) use of oral hypoglycemic drugs; Z79.891 Long term (current) use of opiate analgesic; Z79.51 Long term (current) use of inhaled steroids; Z79.899 Other long term (current) drug therapy; Z79.01 Long term (current) use of anticoagulants; Z79.82 Long term (current) use of aspirin; Z79.52 Long term (current) use of systemic steroids
CPT/HCPCS: 96376; 96361 ×2; 96372; 96374; 99285; 36415; 94640 ×4; 94644; 93005; 93306; 83880; 80053; 80048 ×2; 82550; 83735; 84484; 85025; 85027 ×2; 85610; 85730; 86140; 87635; 71045; G0378 ×2; J2930; J1650

== ENCOUNTER 2020-02-26 00:28 | Emergency (ER) | payer OTHER ==
--- NOTE | 2020-02-26 00:31 | ED ---
Recheck HPI - General Stated Complaint: Anxiety Time Seen by Provider: 02/26/20 00:30 Source: RN notes reviewed, old records reviewed Mode of arrival: ambulatory Limitations: no limitations - History of Present Illness Initial Comments: This is a 64-year-old male DF for evaluation patient Dese for evaluation regards to severe anxiety. Patient has known recent diagnosis of PE as well as COPD exacerbation. Patient was discharged from hospital earlier this morning and was seen under to hospital admissions now the for the third time this past week she has been seen in the ER thinks it is anxiety does occur at night. Patient does admit to feeling anxious currently having difficulty sleeping. No current chest pain MD Complaint: other (Severe anxiety) -: days(s) Returns Today for: other (Patient does admit to anxiety and shortness of breath currently tricyclic sleep) Symptoms Since Prior Visit: no new symptoms (Worsening anxiety) Context: other (Patient felt worse tonight) Associated Symptoms: none Treatments Prior to Arrival: other (Patient is been treated appropriately to prior inpatient hospitalizations) - Related Data Home Medications Medication Instructions Recorded Confirmed allopurinoL [Zyloprim] 100 mg PO DAILY 08/08/14 02/24/20 Atorvastatin [Lipitor] 40 mg PO HS 10/21/17 02/24/20 Glimepiride [Amaryl] 2 mg PO BID-W/MEALS 10/21/17 02/24/20 Montelukast [Singulair] 10 mg PO HS 10/21/17 02/24/20 Spironolactone [Aldactone] 25 mg PO DAILY 10/21/17 02/24/20 amLODIPine [Norvasc] 10 mg PO HS 10/21/17 02/24/20 Albuterol Sulfate [Proair Hfa] 2 puff INHALATION RT-QID PRN 02/18/20 02/24/20 Gabapentin [Neurontin] 300 mg PO HS 02/18/20 02/24/20 Gabapentin [Neurontin] 600 mg PO DAILY 02/18/20 02/24/20 Hydrocodone/Acetaminophen [[place] 1 tab PO BID 02/18/20 02/24/20 10-325] Terazosin HCl 5 mg PO HS 02/18/20 02/24/20 Valsartan 320 mg PO DAILY 02/18/20 02/24/20 Budesonide-Formot 160-4.5 Mcg 2 puff INHALATION RT-BID 02/24/20 02/24/20 [Symbicort 160-4.5 Mcg Inhaler] Bumetanide [BUMEX] 1 mg PO BID 02/24/20 02/24/20 Previous Rx's Medication Instructions Recorded Aspirin EC [Ecotrin Low Dose] 81 mg PO DAILY tablet. 08/09/14 Apixaban [Eliquis] 10 mg PO BID #74 tab 02/19/20 Insulin Glargine,Hum.rec.anlog 10 unit SQ HS #1 pen 02/25/20 [Lantus Solostar] [place], Insulin Disposable [Bd 1 needle SQ DIRECTED #1 box 02/25/20 Ultra-Fine Pen Needle 4mm 32g] Sotalol [Betapace] 80 mg PO BID #60 tab 02/25/20 Allergies Allergy/AdvReac Type Severity Reaction Status Date / Time No Known Allergies Allergy Verified 02/26/20 00:35 Review of Systems ROS Statement: Those systems with pertinent positive or pertinent negative responses have been documented in the HPI. ROS Other: All systems not noted in ROS Statement are negative. Past Medical History Past Medical History: Atrial Fibrillation, COPD, Diabetes Mellitus, Deep Vein Thrombosis (DVT), Hyperlipidemia, Hypertension, Osteoarthritis (OA), Prostate Disorder Additional Past Medical History / Comment(s): Hypertension and hypertensive cardio vascular disease, hypokalemia, benign prostatic hypertrophy, diabetes mellitus type 2, osteoarthritis, overweight, chronic tobacco use and dependence, COPD, gout., kidneys tones History of Any Multi-Drug Resistant Organisms: None Reported Past Surgical History: Cholecystectomy, Joint Replacement Additional Past Surgical History / Comment(s): Cholecystectomy with hernia repair about 2 weeks ago, Bilateral cataract surgery, left total knee arthroplasty with second arthroscopic knee surgery, left leg open reduction and internal fixation. Past Anesthesia/Blood Transfusion Reactions: No Reported Reaction Past Psychological History: No Psychological Hx Reported Smoking Status: Current every day smoker Past Alcohol Use History: None Reported Past Drug Use History: None Reported - Past Family History Father History Unknown: Yes Family Medical History: Cancer Additional Family Medical History / Comment(s): Father has history of melanoma 3. Mother History Unknown: Yes Family Medical History: Cancer Additional Family Medical History / Comment(s): Mother at age 64 from cancer. Brother(s) Family Medical History: No Reported History Additional Family Medical History / Comment(s): Patient has 1 brother with no major medical problems. Sister(s) Family Medical History: No Reported History Additional Family Medical History / Comment(s): Patient has 2 sisters and mother from drug overdose after chronic pain syndrome from low back pain. General Exam General appearance: alert, in no apparent distress, anxious Head exam: Present: atraumatic, normocephalic, normal inspection Eye exam: Present: normal appearance, PERRL, EOMI. Absent: scleral icterus, conjunctival injection, periorbital swelling ENT exam: Present: normal exam, mucous membranes moist Neck exam: Present: normal inspection. Absent: tenderness, meningismus, lymphadenopathy Respiratory exam: Present: normal lung sounds bilaterally. Absent: respiratory distress, wheezes, rales, rhonchi, stridor Cardiovascular Exam: Present: regular rate, normal rhythm, normal heart sounds. Absent: systolic murmur, diastolic murmur, rubs, gallop, clicks GI/Abdominal exam: Present: soft, normal bowel sounds. Absent: distended, tenderness, guarding, rebound, rigid Extremities exam: Present: normal inspection, full ROM, normal capillary refill. Absent: tenderness, pedal edema, joint swelling, calf tenderness Back exam: Present: normal inspection Neurological exam: Present: alert, oriented X3, CN II-XII intact Psychiatric exam: Present: normal affect, normal mood Skin exam: Present: warm, dry, intact, normal color. Absent: rash Course Vital Signs 02/26/20 02/26/20 00:31 01:01 Temperature 98 F Pulse Rate 56 L Respiratory 18 22 Rate Blood Pressure 124/65 O2 Sat by Pulse 98 Oximetry - Reevaluation(s) Reevaluation #1: 02/26/20 02:13 Medical records reviewed Reevaluation #2: 02/26/20 02:13 Patient is sleeping comfortably in the emergency room with anxiolysis Reevaluation #3: 02/26/20 02:13 Spoke with patient regarding how he is feeling he feels good for discharge home Medical Decision Making - Medical Decision Making 62 female DF for anxiety, persistent anxiety secondary recent medical conditions. Patient states symptoms are worse at night feels better here in the ER, will be given anxiety medication for discharge Disposition Clinical Impression: Acute anxiety, Panic attack Disposition: HOME SELF-CARE Condition: Good Instructions (If sedation given, give patient instructions): Generalized Anxiety Disorder (ED) Is patient prescribed a controlled substance at d/c from ED?: No Referrals: Tanesha Long MD [Primary Care Provider] - 1-2 days
[2020-02-26 00:35] VITALS: TEMP 98
[2020-02-26] MEDS ORDERED: LORazepam 1 MG TAB PO STA (01:10)
[2020-02-26] MEDS ORDERED: diazePAM 5 MG TAB PO STA (03:21)
[2020-02-26 03:39] VITALS: BP 115/67; PULSE 58; RESP 16
== END 2020-02-26 03:32 | disposition home or self-care (01) ==
LOC: EC 00:28
DX: F41.0 Panic disorder [episodic paroxysmal anxiety] (principal); J44.9 Chronic obstructive pulmonary disease, unspecified; E78.5 Hyperlipidemia, unspecified; I10 Essential (primary) hypertension; M19.90 Unspecified osteoarthritis, unspecified site; N40.0 Benign prostatic hyperplasia without lower urinary tract symptoms; M10.9 Gout, unspecified; F17.200 Nicotine dependence, unspecified, uncomplicated; Z79.51 Long term (current) use of inhaled steroids; Z79.84 Long term (current) use of oral hypoglycemic drugs; Z79.899 Other long term (current) drug therapy; Z90.49 Acquired absence of other specified parts of digestive tract; Z98.42 Cataract extraction status, left eye; Z98.41 Cataract extraction status, right eye; Z96.652 Presence of left artificial knee joint
CPT/HCPCS: 99283

== ENCOUNTER → 2020-04-13 | Outpatient (CLI) | payer OTHER | END | disposition home or self-care (01) | LOC: LABWHC1 12:14 | PROVIDERS: ATTEND Family Medicine | DX: R19.7 Diarrhea, unspecified (principal) | CPT/HCPCS: 36415; 85652; 86140; 87045; 87046; 87324; 87328; 87329 ==

== ENCOUNTER → 2020-06-02 | Outpatient (CLI) | payer OTHER ==
[2020-06-02 20:25] LABS: T4, Free (Free Thyroxine) 1.1 ng/dL (0.80-1.80)
[2020-06-02 20:34] LABS: Gliadin AB IgA, Deaminated NEGATIVE (NEGATIVE); Gliadin AB IgA, Unit 0.2 U/mL; Gliadin AB IgG, Deaminated NEGATIVE (NEGATIVE)
[2020-06-02 21:04] LABS: African American GFR (CKD) 56.6 (60.0-200.0); Albumin 4.1 g/dL (3.80-4.90); Albumin/Globulin Ratio 2.41 (1.60-3.17); Anion Gap 9.3 mmol/L (4.00-12.00); C Reactive Protein 0.4 mg/dL (0.0-0.8); Calcium 9.2 mg/dL (8.7-10.3); Carbon Dioxide 21.7 mmol/L (21.6-31.8); Chol/HDL Ratio 4.55; Globulin 1.7 g/dL (1.6-3.3); LDL Cholesterol,Calculated 31.8 mg/dL (0.0-131.0); Non-African American GFR(CKD) 48.8 (60.0-200.0); Potassium 4.4 mmol/L (3.5-5.5); Total Bilirubin 0.5 mg/dL (0.3-1.2); Total Protein 5.8 g/dL (6.2-8.2); Uric Acid 7.1 mg/dL (3.7-8.7); VLDL Calculation 39.2 mg/dL (5.00-40.00)
[2020-06-02 21:47] LABS: Hemoglobin A1C 6.6 % (4.0-6.0)
[2020-06-02 23:54] LABS: Basophils # (A) 0.02 X 10*3/uL (0.00-0.10); Basophils % (A) 0.2 %; Eosinophils # (A) 0.09 X 10*3/uL (0.04-0.35); HCT 40.6 % (39.6-50.0); HGB 12.3 g/dL (13.0-17.0); Lymphocytes # (A) 2.04 X 10*3/uL (0.90-5.00); Lymphocytes % (A) 23.1 %; MCH 31.5 pg (27.0-32.0); MCHC 30.3 g/dL (32.0-37.0); MCV 104.1 fL (80.0-97.0); Mean Platelet Volume 10.5 fL (9.5-12.2); Monocytes # (A) 0.61 X 10*3/uL (0.20-1.00); Monocytes % (A) 6.9 %; Neutrophils # (A) 6.03 X 10*3/uL (1.80-7.70); Neutrophils % (A) 68.5 %; Platelet Count 196 X 10*3/uL (140-440); RDW 13.8 % (11.5-14.5); WBC 8.82 X 10*3/uL (4.50-10.00)
[2020-06-03 01:58] LABS: Erythrocyte Sedimentation Rate 47 mm/Hr (0-20)
== END | disposition home or self-care (01) ==
LOC: LABWHC1 09:53
PROVIDERS: ATTEND Family Medicine
DX: E11.65 Type 2 diabetes mellitus with hyperglycemia (principal); E78.5 Hyperlipidemia, unspecified; R19.7 Diarrhea, unspecified; I10 Essential (primary) hypertension
CPT/HCPCS: 36415; 80053; 80061; 82550; 83036; 83516; 84439; 84443; 84550; 85025; 85652; 86140

== ENCOUNTER → 2020-06-06 | Outpatient (CLI) | payer OTHER | END | disposition home or self-care (01) | LOC: LABWHC1 11:03 | PROVIDERS: ATTEND Family Medicine | DX: I73.9 Peripheral vascular disease, unspecified (principal); R19.7 Diarrhea, unspecified | CPT/HCPCS: 36415; 83013 ==

== ENCOUNTER 2020-07-15 17:04 | Observation (INO) | payer OTHER ==
[2020-07-15] MEDS ORDERED: LIDOCAINE 1%-EPI 1:100,000 20 ML VIAL SQ STA (17:33)
[2020-07-15] MEDS ORDERED: cefTRIAXone IN SWFI 1,000 MG/10 ML SYRINGE IVP STA (17:33)
--- NOTE | 2020-07-15 17:33 | ED ---
General Adult HPI - General Chief complaint: Skin/Abscess/Foreign Body Stated complaint: abscess Time Seen by Provider: 07/15/20 17:09 Source: patient Mode of arrival: ambulatory Limitations: no limitations - History of Present Illness Initial comments: Dictation was produced using [employer] dictation software. please excuse any grammatical, word or spelling errors. Chief Complaint: 65-year-old male presents with gluteal abscess History of Present Illness: 65-year-old male who has multiple comorbidities. Patient takes eliquis. Patient states that having symptoms for 3-4 days. Initially noted a little boil to his left intergluteal area. States that there was a head on it and he tried to pop it but only blood came out. He will this morning and his symptoms were significantly worse. Denies any constitutional sy mptoms. Patient takes anticoagulation medications. The ROS documented in this emergency department record has been reviewed and confirmed by me. Those systems with pertinent positive or negative responses have been documented in the HPI. All other systems are other negative and/or noncontributory. PHYSICAL EXAM: General Impression: Alert and oriented x3, not in acute distress HEENT: Normocephalic atraumatic, extra-ocular movements intact, pupils equal and reactive to light bilaterally, mucous membranes moist. Cardiovascular: Heart regular rate and rhythm Chest: Able to complete full sentences, no retractions, no tachypnea Abdomen: abdomen soft, non-tender, non-distended, no organomegaly Musculoskeletal: Pulses present and equal in all extremities, no peripheral edema Motor: no focal deficits noted Neurological: CN II-XII grossly intact, no focal motor or sensory deficits noted Skin: Intact with no visualized rashes Gluteal cleft: Area of induration to the inferior portion of the left gluteus. No obvious fluctuance. No inflammatory changes on his perineum or scrotum. Psych: Normal affect and mood ED course:65-year-old male presents with concern of abscesses to the left gl uteus. All signs upon arrival are within acceptable limits. [id number] bedside ultrasound shows large anechoic area with moving debris.. Does appear to be subcutaneous. Does not extend into the area of the anus. Denies any abdominal symptoms. Denies any constitutional symptoms. Laboratory evaluation obtained. Leukocytosis of 16.6 with neutrophils. Metabolic panel. Renal markers elevated 1.55, BUN 31, CRP is 18.8. Computed tomography scan of the pelvis with contrast was obtained showing inflammatory extensive changes the left side of the perineum extending towards the left buttock with soft tissue air bubbles. CT was performed after the I&D was performed which likely introduced air bubbles. Patient's well-appearing. He is resting, fully at bedside not showing any signs of severe sepsis or systemic symptoms. He is agreeable with admission. Patient will be admitted to Dr. Driscoll. Infectious disease on consult. - Related Data Home Medications Medication Instructions Recorded Confirmed allopurinoL [Zyloprim] 100 mg PO DAILY 08/08/14 07/15/20 Atorvastatin [Lipitor] 40 mg PO HS 10/21/17 07/15/20 Montelukast [Singulair] 10 mg PO HS 10/21/17 07/15/20 Spironolactone [Aldactone] 25 mg PO BID 10/21/17 07/15/20 amLODIPine [Norvasc] 10 mg PO HS 10/21/17 07/15/20 Albuterol Sulfate [Proair Hfa] 2 puff INHALATION RT-QID PRN 02/18/20 07/15/20 Gabapentin [Neurontin] 600 mg PO TID 02/18/20 07/15/20 Terazosin HCl 5 mg PO HS 02/18/20 07/15/20 Valsartan 320 mg PO DAILY 02/18/20 07/15/20 Budesonide-Formot 160-4.5 Mcg 2 puff INHALATION RT-BID PRN 02/24/20 07/15/20 [Symbicort 160-4.5 Mcg Inhaler] Bumetanide [BUMEX] 1 mg PO BID 02/24/20 07/15/20 Acetaminophen with Codeine 1 tab PO Q6H PRN 07/15/20 07/15/20 [Tylenol w/Codeine #4 Tablet] Apixaban [Eliquis] 5 mg PO BID 07/15/20 07/15/20 Glimepiride [Amaryl] 4 mg PO DAILY 07/15/20 07/15/20 Insulin Detemir [Levemir Flextouch] 35 units SQ HS 07/15/20 07/15/20 Methocarbamol [Robaxin-750] 750 mg PO TID 07/15/20 07/15/20 Previous Rx's Medication Instructions Recorded Aspirin EC [Ecotrin Low Dose] 81 mg PO DAILY tablet. 08/09/14 Sotalol [Betapace] 80 mg PO BID #60 tab 02/25/20 Allergies Allergy/AdvReac Type Severity Reaction Status Date / Time insulin glargine AdvReac Diarrhea Verified 07/15/20 18:43 [From Lantus U-100 Insulin] Review of Systems ROS Statement: Those systems with pertinent positive or pertinent negative responses have been documented in the HPI. ROS Other: All systems not noted in ROS Statement are negative. Past Medical History Past Medical History: Atrial Fibrillation, COPD, Diabetes Mellitus, Deep Vein Thrombosis (DVT), Hyperlipidemia, Hypertension, Osteoarthritis (OA), Prostate Disorder Additional Past Medical History / Comment(s): hypertensive cardio vascular disease, hypokalemia, benign prostatic hypertrophy, gout, kidney stones History of Any Multi-Drug Resistant Organisms: None Reported Past Surgical History: Cholecystectomy, Joint Replacement Additional Past Surgical History / Comment(s): Cholecystectomy with hernia repair about 2 weeks ago, Bilateral cataract surgery, left total knee arthroplasty with second arthroscopic knee surgery, left leg open reduction and internal fixation. Past Anesthesia/Blood Transfusion Reactions: No Reported Reaction Past Psychological History: No Psychological Hx Reported Smoking Status: Current every day smoker Past Alcohol Use History: None Reported Past Drug Use History: None Reported - Past Family History Father History Unknown: Yes Family Medical History: Cancer Additional Family Medical History / Comment(s): Father has history of melanoma 3. Mother History Unknown: Yes Family Medical History: Cancer Additional Family Medical History / Comment(s): Mother at age 64 from cancer. Brother(s) Family Medical History: No Reported History Additional Family Medical History / Comment(s): Patient has 1 brother with no major medical problems. Sister(s) Family Medical History: No Reported History Additional Family Medical History / Comment(s): Patient has 2 sisters and mother from drug overdose after chronic pain syndrome from low back pain. General Exam Limitations: no limitations Course Vital Signs 07/15/20 07/15/20 17:06 19:08 Temperature 98.0 F Pulse Rate 66 63 Respiratory 22 18 Rate Blood Pressure 142/66 132/62 O2 Sat by Pulse 96 97 Oximetry Procedures - Incision & Drainage Consent Obtained: verbal consent Site: buttock Anesthetic Used: lidocaine 1%, with epi Sterile Field Used?: No Scalpel Used: #15 Needle Aspiration Performed?: Yes (purulent, bloody, caseous material) Irrigation Performed?: No I&D Drainage Obtained: Pus, Blood Packing: Plain Complications: pain Patient Tolerated Procedure: well Medical Decision Making - Lab Data Result diagrams: 07/15/20 17:41 07/15/20 17:41 Lab Results 07/15/20 07/15/20 07/15/20 Range/Units 17:41 17:41 17:41 WBC 16.6 H (3.8-10.6) k/uL RBC 3.96 L (4.30-5.90) m/uL Hgb 12.8 L (13.0-17.5) gm/dL Hct 37.4 L (39.0-53.0) % MCV 94.5 (80.0-100.0) fL MCH 32.4 (25.0-35.0) pg MCHC 34.3 (31.0-37.0) g/dL RDW 13.1 (11.5-15.5) % Plt Count 159 (150-450) k/uL MPV 7.3 Neutrophils % 82 % Lymphocytes % 10 % Monocytes % 6 % Eosinophils % 2 % Basophils % 0 % Neutrophils # 13.6 H (1.3-7.7) k/uL Lymphocytes # 1.6 (1.0-4.8) k/uL Monocytes # 0.9 (0-1.0) k/uL Eosinophils # 0.3 (0-0.7) k/uL Basophils # 0.1 (0-0.2) k/uL Sodium 138 (137-145) mmol/L Potassium 4.4 (3.5-5.1) mmol/L Chloride 107 (98-107) mmol/L Carbon Dioxide 24 (22-30) mmol/L Anion Gap 7 mmol/L BUN 31 H (9-20) mg/dL Creatinine 1.55 H (0.66-1.25) mg/dL Est GFR (CKD-EPI)AfAm 54 (>60 ml/min/1.73 sqM) Est GFR (CKD-EPI)NonAf 47 (>60 ml/min/1.73 sqM) Glucose 111 H (74-99) mg/dL Plasma Lactic Acid Mani 1.1 (0.7-2.0) mmol/L Calcium 8.9 (8.4-10.2) mg/dL C-Reactive Protein 18.8 H (<1.0) mg/dL Disposition Clinical Impression: Cellulitis Disposition: ADMITTED IP TO THIS HOSP Condition: Fair Referrals: Tanesha Long MD [Primary Care Provider] - 1-2 days
[2020-07-15 17:52] LABS: Basophils # (A) 0.1 k/uL (0-0.2); Basophils % (A) 0 %; Eosinophils # (A) 0.3 k/uL (0-0.7); Eosinophils % (A) 2 %; HCT 37.4 % (39.0-53.0); HGB 12.8 gm/dL (13.0-17.5); Lymphocytes # (A) 1.6 k/uL (1.0-4.8); Lymphocytes % (A) 10 %; MCH 32.4 pg (25.0-35.0); MCHC 34.3 g/dL (31.0-37.0); MCV 94.5 fL (80.0-100.0); Mean Platelet Volume 7.3; Monocytes # (A) 0.9 k/uL (0-1.0); Monocytes % (A) 6 %; Neutrophils # (A) 13.6 k/uL (1.3-7.7); Neutrophils % (A) 82 %; Platelet Count 159 k/uL (150-450); RBC 3.96 m/uL (4.30-5.90); RDW 13.1 % (11.5-15.5); WBC 16.6 k/uL (3.8-10.6)
[2020-07-15 18:06] LABS: Calcium 8.9 mg/dL (8.4-10.2); Potassium 4.4 mmol/L (3.5-5.1)
[2020-07-15 18:23] LABS: C Reactive Protein 18.8 mg/dL (<1.0)
[2020-07-15] MEDS ORDERED: VANCOMYCIN IV PER PHARMACY 1 EACH MISC MISCELLANE PRN (18:23)
[2020-07-15] MEDS ORDERED: VANCOMYCIN 1,750 MG in SODIUM CHLORIDE 0.9% 500 ML 500 ML IVPB STA (18:31)
[2020-07-15] MEDS ORDERED: SODIUM CHLORIDE 0.9% 500 ML 500 ML IV STA (18:33)
[2020-07-15 19:11] VITALS: RESP 18
--- NOTE | 2020-07-15 19:32 | CT ---
EXAMINATION TYPE: CT pelvis w con DATE OF EXAM: 07/15/2020 COMPARISON: 10/21/2017 HISTORY: Perineal cellulitis and bleeding. CT DLP: 1727.8 mGycm Automated exposure control for dose reduction was used. CONTRAST: Performed with IV Contrast, patient injected with 80ml mL of Isovue 300. Images obtained from the iliac crests to the subtrochanteric femurs with IV contrast. The visualized small bowel and large bowel appears intact. There is no evidence of a bowel obstructio n. Appendix appears normal. There is no ascites. Bladder distends smoothly. There is no pelvic mass. There is no free fluid in the pelvis. There is no evidence of pelvic lymphadenopathy. There is minima l prostate calcification. There are inguinal lymph nodes that measure up to 1.6 cm. There is skin thickening and subcutaneous edema on the left side of the perineum. There is soft tissu e air bubbles as well. This area measures 5 x 11 cm. I see no drainable fluid collection. The lower lumbar spine is intact. There is vacuum disc at L3-4 L4-5 and L5-S1 with disc space narrowi ng. There is no compression fracture. The proximal femurs are intact. There is no hip dysplasia. Hip joint spaces are fairly normal. There is mild vascular calcification. IMPRESSION: Inflammatory extensive changes in the left side of the perineum extending towards the left buttock wi th soft tissue air bubbles. This is consistent with infectious etiology. This appears new compared to old exam. No drainable fluid collection. No significant abnormality seen within the pelvis.
[2020-07-15] MEDS ORDERED: MORPHINE SULFATE 4 MG/ML SYRINGE IV STA (19:53)
[2020-07-15] MEDS ORDERED: NALOXONE 0.4 MG/ML 1 ML VIAL IV PRN (20:05)
[2020-07-15] MEDS ORDERED: ACETAMINOPHEN TAB 325 MG TAB PO PRN (20:05)
[2020-07-15] MEDS ORDERED: ONDANSETRON 4 MG/2 ML VIAL IVP PRN (20:05)
[2020-07-15] MEDS ORDERED: MORPHINE SULFATE 4 MG/ML SYRINGE IV PRN (20:05)
[2020-07-15] MEDS ORDERED: SODIUM CHLORIDE 0.9% 1,000 ML IV SCH (20:15)
[2020-07-15 21:46] LABS: Glucose,Whole Blood 82 mg/dL (75-99)
[2020-07-15] MEDS ORDERED: ALBUTEROL NEBULIZED 2.5 MG/3 ML INHALATION PRN (22:26)
[2020-07-15] MEDS ORDERED: MONTELUKAST 10 MG TAB PO SCH (22:30)
[2020-07-15] MEDS ORDERED: SPIRONOLACTONE 25 MG TAB PO SCH (22:30)
[2020-07-15] MEDS ORDERED: SOTALOL 80 MG TAB PO SCH (22:30)
[2020-07-15] MEDS ORDERED: ATORVASTATIN 40 MG TAB PO SCH (22:30)
[2020-07-15] MEDS ORDERED: GLIMEPIRIDE 4 MG TAB PO SCH (22:30)
[2020-07-15] MEDS ORDERED: amLODIPine 10 MG TAB PO SCH (22:30)
[2020-07-15] MEDS ORDERED: APIXABAN 5 MG TAB PO SCH (22:30)
[2020-07-15] MEDS ORDERED: GABAPENTIN 300 MG CAP PO SCH (22:45)
[2020-07-15] MEDS ORDERED: DOXAZOSIN 4 MG TAB PO SCH (22:45)
[2020-07-15] MEDS ORDERED: INSULIN DETEMIR (LEVEMIR) 100 UNIT/ML SYR SQ SCH (22:45)
[2020-07-15] MEDS ORDERED: Acetaminophen-Codeine 300-30mg TAB PO PRN (23:00)
[2020-07-15] MEDS ORDERED: methocarbamoL 750 MG TAB PO SCH (23:00)
[2020-07-15] MEDS ORDERED: BUMETANIDE 1 MG TAB PO SCH (23:00)
[2020-07-16] MEDS: HYDROmorphone 0.5 MG/0.5 ML SYRINGE IVP PRN ×2 (00:11→04:29)
[2020-07-16 05:23] LABS: Basophils % (A) 0 %; Eosinophils # (A) 0.1 k/uL (0-0.7); Eosinophils % (A) 1 %; HGB 12.1 gm/dL (13.0-17.5); Lymphocytes # (A) 2.3 k/uL (1.0-4.8); Lymphocytes % (A) 16 %; MCH 32.4 pg (25.0-35.0); MCHC 33.7 g/dL (31.0-37.0); MCV 96.3 fL (80.0-100.0); Mean Platelet Volume 7.4; Monocytes # (A) 0.9 k/uL (0-1.0); Monocytes % (A) 6 %; Neutrophils # (A) 11.1 k/uL (1.3-7.7); Neutrophils % (A) 77 %; Platelet Count 156 k/uL (150-450); RBC 3.74 m/uL (4.30-5.90); WBC 14.5 k/uL (3.8-10.6)
[2020-07-16 05:52] LABS: ALT 63 U/L (4-49); AST 58 U/L (17-59); African American GFR (CKD) 70 (>60 ml/min/1.73 sqM); Albumin 3.1 g/dL (3.5-5.0); Albumin/Globulin Ratio 1.2; Alkaline Phosphatase 139 U/L (38-126); Anion Gap 4 mmol/L; Blood Urea Nitrogen 20 mg/dL (9-20); Calcium 8.5 mg/dL (8.4-10.2); Carbon Dioxide 26 mmol/L (22-30); Chloride 107 mmol/L (98-107); Globulin 2.5 g/dL; Glucose 72 mg/dL (74-99); Non-African American GFR(CKD) 60 (>60 ml/min/1.73 sqM); Potassium 4.4 mmol/L (3.5-5.1); Sodium 137 mmol/L (137-145); Total Bilirubin 0.3 mg/dL (0.2-1.3); Total Protein 5.6 g/dL (6.3-8.2)
[2020-07-16] MEDS ORDERED: VANCOMYCIN 1,750 MG in SODIUM CHLORIDE 0.9% 500 ML 500 ML IVPB SCH (06:00)
[2020-07-16 06:13] LABS: C Reactive Protein 17.6 mg/dL (<1.0)
[2020-07-16 07:27] LABS: Glucose,Whole Blood 87 mg/dL (75-99)
[2020-07-16] MEDS ORDERED: INSULIN ASPART (NovoLOG) 100 UNIT/ML VIAL SQ SCH (07:30)
[2020-07-16 08:19] VITALS: BP 111/54; PULSE 56; TEMP 98.9
[2020-07-16 08:49] LABS: Erythrocyte Sedimentation Rate 94 mm/hr (0-15)
[2020-07-16] MEDS ORDERED: VALSARTAN 160 MG TAB PO SCH (09:00)
[2020-07-16] MEDS ORDERED: allopurinoL 100 MG TAB PO SCH (09:00)
[2020-07-16] MEDS ORDERED: ASPIRIN 81 MG PO SCH (09:00)
[2020-07-16] MEDS ORDERED: BUMETANIDE 1 MG TAB PO SCH (09:00)
--- NOTE | 2020-07-16 10:33 | P.HPIM ---
History of Present Illness H&P Date: 07/16/20 (Patient left AMA prior to assessment. This document was also both as a H&P and discharge summary) 65 years old male with past medical history of COPD, atrial fibrillation, type 2 diabetes, DVT, hyperlipidemia, hypertension, prostate disorder, history of gout, kidney stones comes in with worsening swelling and redness involving the left intergluteal region. History obtained from the [facility], [place]. Apparently patient decided to go AGAINST MEDICAL ADVICE this morning and did not want to stay any longer to be assessed by the physician. On assessment provided by the ER physician it appeared that patient had symptoms going on for 3-4 weeks had a little boil on his left intergluteal region. Incision and drainage was attempted with no output. Since patient's swelling and redness appeared to be worsening and patient needs IV antibiotic patient was admitted to the hospital. Vitals assessed patient's afebrile, pulse 56 respiratory rate 18 blood pressure 111/50. Oxygen saturation 96% on room air. White cell on admission 16.6 hemoglobin 12.8 platelet 159 BUN 31 creatinine 1.55 glucose 111 creatinine improved to 1.26 on hydration CRP 18.8, COVID negative.CT pelvis was reviewed patient's small and large bowels were intact. No evidence of bowel obstruction. There is a skin thickening and subcutaneous edema involving the left side of the perineum with soft tissue air bubbles as well measuring 5-11 cm no drainable fluid collection noted. No necrotizing fasciitis noted. Patient was given vancomycin in the ED. I will send doxycycline 100 mg twice a day for 14 days for patient's safety and completion of treatment. Patient is at high risk of sepsis and septic shock. Patient's nurse did explain the consequences of leaving against medical advise that patient was adamant to leave. He is in mental capacity to make his own decision and papers were signed for him to leave AGAINST MEDICAL ADVICE Past Medical History Past Medical History: Atrial Fibrillation, COPD, Diabetes Mellitus, Deep Vein Thrombosis (DVT), Hyperlipidemia, Hypertension, Osteoarthritis (OA), Prostate Disorder Additional Past Medical History / Comment(s): hypertensive cardio vascular disease, hypokalemia, benign prostatic hypertrophy, gout, kidney stones.back pain. scheduled for back surgery at [facility] on 08/11/2020. History of Any Multi-Drug Resistant Organisms: None Reported Past Surgical History: Cholecystectomy, Joint Replacement Additional Past Surgical History / Comment(s): Cholecystectomy with hernia repair , Bilateral cataract surgery, left total knee arthroplasty with second arthroscopic knee surgery, left leg open reduction and internal fixation. Past Anesthesia/Blood Transfusion Reactions: No Reported Reaction Past Psychological History: No Psychological Hx Reported Smoking Status: Current every day smoker Past Alcohol Use History: None Reported Additional Past Alcohol Use History / Comment(s): Patient is smoker one pack per day since he was 11 years of age. He drinks alcohol occasionally. live home alone. Past Drug Use History: None Reported - Past Family History Father History Unknown: Yes Family Medical History: Cancer Additional Family Medical History / Comment(s): Father has history of melanoma 3. Mother History Unknown: Yes Family Medical History: Cancer Additional Family Medical History / Comment(s): Mother at age 64 from cancer. Brother(s) Family Medical History: No Reported History Additional Family Medical History / Comment(s): Patient has 1 brother with no major medical problems. Sister(s) Family Medical History: No Reported History Additional Family Medical History / Comment(s): Patient has 2 sisters and mother from drug overdose after chronic pain syndrome from low back pain. Medications and Allergies Home Medications Medication Instructions Recorded Confirmed Type allopurinoL [Zyloprim] 100 mg PO DAILY 08/08/14 07/15/20 History Aspirin EC [Ecotrin Low Dose] 81 mg PO DAILY tablet. 08/09/14 07/15/20 Rx Atorvastatin [Lipitor] 40 mg PO HS 10/21/17 07/15/20 History Montelukast [Singulair] 10 mg PO HS 10/21/17 07/15/20 History Spironolactone [Aldactone] 25 mg PO BID 10/21/17 07/15/20 History amLODIPine [Norvasc] 10 mg PO HS 10/21/17 07/15/20 History Albuterol Sulfate [Proair Hfa] 2 puff INHALATION RT-QID PRN 02/18/20 07/15/20 History Gabapentin [Neurontin] 600 mg PO TID 02/18/20 07/15/20 History Terazosin HCl 5 mg PO HS 02/18/20 07/15/20 History Valsartan 320 mg PO DAILY 02/18/20 07/15/20 History Budesonide-Formot 160-4.5 Mcg 2 puff INHALATION RT-BID PRN 02/24/20 07/15/20 History [Symbicort 160-4.5 Mcg Inhaler] Bumetanide [BUMEX] 1 mg PO BID 02/24/20 07/15/20 History Sotalol [Betapace] 80 mg PO BID #60 tab 02/25/20 07/15/20 Rx Acetaminophen with Codeine 1 tab PO Q6H PRN 07/15/20 07/15/20 History [Tylenol w/Codeine #4 Tablet] Apixaban [Eliquis] 5 mg PO BID 07/15/20 07/15/20 History Glimepiride [Amaryl] 4 mg PO DAILY 07/15/20 07/15/20 History Insulin Detemir [Levemir Flextouch] 35 units SQ HS 07/15/20 07/15/20 History Methocarbamol [Robaxin-750] 750 mg PO TID 07/15/20 07/15/20 History Doxycycline [Vibramycin] 100 mg PO BID 14 Days #14 capsule 07/16/20 Rx Allergies Allergy/AdvReac Type Severity Reaction Status Date / Time insulin glargine AdvReac Diarrhea Verified 07/15/20 18:43 [From Lantus U-100 Insulin] Physical Exam Vitals: Vital Signs Temp Pulse Pulse Pulse Resp BP BP 07/16/20 07:00 98.9 F 56 L 18 111/54 07/16/20 01:36 99.2 F 60 18 107/54 07/16/20 00:00 116/60 07/15/20 23:09 98.6 F 61 18 92/46 07/15/20 21:45 99.5 F 62 20 99/51 07/15/20 19:08 63 18 132/62 07/15/20 17:06 98.0 F 66 22 142/66 Pulse Ox 07/16/20 07:00 96 07/16/20 01:36 93 L 07/16/20 00:00 07/15/20 23:09 97 07/15/20 21:45 94 L 07/15/20 19:08 97 07/15/20 17:06 96 Intake and Output 07/15/20 07/16/20 07/16/20 22:59 06:59 14:59 Other: Voiding Method Toilet # Voids 1 1 Weight 108.862 kg Results CBC & Chem 7: 07/16/20 04:27 07/16/20 04:27 Labs: Abnormal Lab Results - Last 24 Hours (Table) 07/15/20 07/15/20 07/16/20 Range/Units 17:41 17:41 04:27 WBC 16.6 H 14.5 H (3.8-10.6) k/uL RBC 3.96 L 3.74 L (4.30-5.90) m/uL Hgb 12.8 L 12.1 L (13.0-17.5) gm/dL Hct 37.4 L 36.0 L (39.0-53.0) % Neutrophils # 13.6 H 11.1 H (1.3-7.7) k/uL ESR 94 H (0-15) mm/hr BUN 31 H (9-20) mg/dL Creatinine 1.55 H (0.66-1.25) mg/dL Glucose 111 H (74-99) mg/dL ALT (4-49) U/L Alkaline Phosphatase (38-126) U/L C-Reactive Protein 18.8 H (<1.0) mg/dL Total Protein (6.3-8.2) g/dL Albumin (3.5-5.0) g/dL 07/16/20 Range/Units 04:27 WBC (3.8-10.6) k/uL RBC (4.30-5.90) m/uL Hgb (13.0-17.5) gm/dL Hct (39.0-53.0) % Neutrophils # (1.3-7.7) k/uL ESR (0-15) mm/hr BUN (9-20) mg/dL Creatinine 1.26 H (0.66-1.25) mg/dL Glucose 72 L (74-99) mg/dL ALT 63 H (4-49) U/L Alkaline Phosphatase 139 H (38-126) U/L C-Reactive Protein 17.6 H (<1.0) mg/dL Total Protein 5.6 L (6.3-8.2) g/dL Albumin 3.1 L (3.5-5.0) g/dL Thrombosis Risk Factor Assmnt - Choose All That Apply Any of the Below Risk Factors Present?: Yes Each Factor Represents 1 point: Abnormal pulmonary function (COPD), Obesity (BMI >25) Other Risk Factors: Yes Each Risk Factor Represents 2 Points: Age 61-74 years Each Risk Factor Represents 3 Points: History of DVT/PE Other congenital or acquired thrombophilia - If yes, enter type in comment: No Thrombosis Risk Factor Assessment Total Risk Factor Score: 7 Thrombosis Risk Factor Assessment Level: High Risk Assessment and Plan Plan: #1 early abscess of the left intergluteal region. #2 atrial fibrillation #3 type 2 diabetes #4 prostate enlargement #5 hyperlipidemia #6 hypertension #7 acute kidney injury on chronic kidney disease stage III Plan Doxycycline 100 mg twice a day sent for 14 days. Patient agreed evaluation by the primary care physician. Patient was called and instructed to see the primary care physician in next week. Patient could not be assessed in the room as he left against medical advise Patient does have understanding of the consequences of leaving AGAINST MEDICAL ADVICE. He was explained about sepsis and septic shock and advised to return to ER if the patient's symptoms worsens despite being on antibiotics by the nurse
[2020-07-16 13:23] LABS: Hemoglobin A1C 6.3 % (4.0-6.0)
== END 2020-07-16 09:00 | disposition left against medical advice (07) ==
LOC: EC 17:04 → 6NMEDSUR 20:05
PROVIDERS: ADMIT Internal Medicine; ATTEND Internal Medicine
DX: L02.31 Cutaneous abscess of buttock (principal); Z53.29 Procedure and treatment not carried out because of patient's decision for other reasons; I48.91 Unspecified atrial fibrillation; N40.0 Benign prostatic hyperplasia without lower urinary tract symptoms; Z79.899 Other long term (current) drug therapy; E78.5 Hyperlipidemia, unspecified; I12.9 Hypertensive chronic kidney disease with stage 1 through stage 4 chronic kidney disease, or unspecified chronic kidney disease; E11.22 Type 2 diabetes mellitus with diabetic chronic kidney disease; N17.9 Acute kidney failure, unspecified; N18.30 Chronic kidney disease, stage 3 unspecified; J44.9 Chronic obstructive pulmonary disease, unspecified; M19.90 Unspecified osteoarthritis, unspecified site; M10.9 Gout, unspecified; E87.6 Hypokalemia; R23.4 Changes in skin texture; R60.9 Edema, unspecified; F17.210 Nicotine dependence, cigarettes, uncomplicated; E66.9 Obesity, unspecified; Z68.33 Body mass index [BMI] 33.0-33.9, adult; Z20.822 Contact with and (suspected) exposure to COVID-19; Z79.4 Long term (current) use of insulin; Z79.01 Long term (current) use of anticoagulants; Z79.51 Long term (current) use of inhaled steroids; Z79.82 Long term (current) use of aspirin; Z88.8 Allergy status to other drugs, medicaments and biological substances; Z86.718 Personal history of other venous thrombosis and embolism; Z86.711 Personal history of pulmonary embolism; Z87.442 Personal history of urinary calculi; Z96.652 Presence of left artificial knee joint; Z90.49 Acquired absence of other specified parts of digestive tract; Z80.8 Family history of malignant neoplasm of other organs or systems; Z84.89 Family history of other specified conditions
CPT/HCPCS: 96376; 96366 ×3; 96375 ×2; 96365; 99284; 10060; 36415; 80053; 80048; 85652; 83605; 85025 ×2; 86140 ×2; 87040; 83036; 87635; 72193; G0378 ×2; J3370 ×2; J2270; J0696; J1170; Q9967

== ENCOUNTER → 2020-11-06 | Outpatient (CLI) | payer OTHER ==
--- NOTE | 2020-11-06 12:57 | P.CONS ---
History of Present Illness - Reason for Consult Consult date: 11/06/20 - Chief Complaint Lower back and right leg pain - History of Present Illness This is a 65-year-old gentleman with history of chronic lower back pain with radiation to the right leg down to the right knee and occasionally to the right foot laterally with numbness and tingling in no specific radicular distribution. The patient feels some weakness in his right leg but he denies any bowel or bladder dysfunction. The patient was scheduled to have surgery on his back at [facility] however the surgery had to be canceled because of his inability to stop smoking. The patient's pain gets worse by standing and walking. He takes oxycodone for his pain by his primary care physician. He Does have history of atrial fibrillation with treatment with a Eliquis. The patient failed to respond to physical therapy. Past Medical History Past Medical History: Atrial Fibrillation, COPD, Diabetes Mellitus, Deep Vein Thrombosis (DVT), Hyperlipidemia, Hypertension, Osteoarthritis (OA), Prostate Disorder Additional Past Medical History / Comment(s): hypertensive cardio vascular disease, hypokalemia, benign prostatic hypertrophy, gout, kidney stones.back pain. CELLULITIS ON BUTTOCKS-RESOLVED History of Any Multi-Drug Resistant Organisms: None Reported Past Surgical History: Cholecystectomy, Joint Replacement, Orthopedic Surgery Additional Past Surgical History / Comment(s): Cholecystectomy with hernia repair , Bilateral cataract surgery, left total knee arthroplasty with second arthroscopic knee surgery, left leg open reduction and internal fixation. Past Anesthesia/Blood Transfusion Reactions: No Reported Reaction Past Psychological History: No Psychological Hx Reported Smoking Status: Current every day smoker Past Alcohol Use History: None Reported Additional Past Alcohol Use History / Comment(s): Patient is smoker one pack per day since he was 11 years of age. Past Drug Use History: None Reported - Past Family History Father History Unknown: Yes Family Medical History: Cancer Additional Family Medical History / Comment(s): Father has history of melanoma 3. Mother History Unknown: Yes Family Medical History: Cancer Additional Family Medical History / Comment(s): Mother at age 64 from cancer. Brother(s) Family Medical History: No Reported History Additional Family Medical History / Comment(s): Patient has 1 brother with no major medical problems. Sister(s) Family Medical History: No Reported History Additional Family Medical History / Comment(s): Patient has 2 sisters and mother from drug overdose after chronic pain syndrome from low back pain. Medications and Allergies Home Medications Medication Instructions Recorded Confirmed Type allopurinoL [Zyloprim] 100 mg PO DAILY 08/08/14 11/01/20 History Aspirin EC [Ecotrin Low Dose] 81 mg PO DAILY tablet. 08/09/14 11/01/20 Rx Atorvastatin [Lipitor] 20 mg PO HS 10/21/17 11/01/20 History Montelukast [Singulair] 10 mg PO HS 10/21/17 11/01/20 History Spironolactone [Aldactone] 25 mg PO BID 10/21/17 11/01/20 History amLODIPine [Norvasc] 10 mg PO HS 10/21/17 11/01/20 History Albuterol Sulfate [Proair Hfa] 2 puff INHALATION RT-QID PRN 02/18/20 11/01/20 Hi story Gabapentin [Neurontin] 600 mg PO TID 02/18/20 11/01/20 History Terazosin HCl 5 mg PO HS 02/18/20 11/01/20 History Valsartan 320 mg PO DAILY 02/18/20 11/01/20 History Budesonide-Formot 160-4.5 Mcg 2 puff INHALATION RT-BID PRN 02/24/20 11/01/20 History [Symbicort 160-4.5 Mcg Inhaler] Bumetanide [BUMEX] 1 mg PO BID 02/24/20 11/01/20 History Sotalol [Betapace] 80 mg PO BID #60 tab 02/25/20 11/01/20 Rx Apixaban [Eliquis] 5 mg PO BID 07/15/20 11/01/20 History Glimepiride [Amaryl] 4 mg PO DAILY 07/15/20 11/01/20 History Insulin Detemir [Levemir Flextouch 20 units SQ HS 07/15/20 11/01/20 History Pen] Methocarbamol [Robaxin-750] 750 mg PO TID 07/15/20 11/01/20 History Amoxic-Pot Clav 875-125Mg 1 tab PO Q12HR 11/01/20 11/01/20 History [Augmentin 875-125] oxyCODONE HCL/ACETAMINOPHEN 1 tab PO Q6H PRN 11/01/20 11/01/20 History [oxyCODONE HCL/ACETAMINOPHEN 7.5-325] Allergies Allergy/AdvReac Type Severity Reaction Status Date / Time insulin glargine AdvReac Diarrhea Verified 11/01/20 14:30 [From Lantus U-100 Insulin] Physical Exam - Constitutional General appearance: obese - Neurologic Neuro exam of the lower extremities showed decreased right knee reflex compared to the left side and absent ankle reflex bilaterally. Decreased muscle strength in the right leg in general to 4 out of 5 for right knee flexion and extension and ankle flexion and extension. Straight leg raising test is positive on the right side Positive tenderness in the lumbar paravertebral musculature on the right side Positive facet loading test in the lumbar area Zoltan's test is negative on the right side Neurologic: CNII-XII intact - Psychiatric Psychiatric: A&O x's 3, appropriate affect, intact judgment & insight Assessment and Plan Plan: This is a 65-year-old gentleman with the following diagnoses: Right lumbar radiculopathy due to disc herniation Lumbar spondylosis without myelopathy Atrial fibrillation with treatment with Eliquis COPD Tobacco dependence Diabetes Failure to respond to physical therapy The patient may benefit from lumbar epidural steroid injection at the L3-4 or L4-5 level in the right paramedian approach under fluoroscopic guidance. If this injection does not help the patient then we'll try the transforaminal approach in the future. The patient would hold his Eliquis for 72 hours before the procedure but he will check with his prescribing physician for the safety with doing that. The procedure was explained to the patient and his questions were answered. I thank you for the referral
[2020-11-06 13:01] VITALS: BP 127/68; PULSE 51; RESP 18; TEMP 97.8
== END ==
LOC: PNWHC3 12:26
PROVIDERS: ATTEND Anesthesiology
DX: M51.16 Intervertebral disc disorders with radiculopathy, lumbar region (principal); M47.26 Other spondylosis with radiculopathy, lumbar region; I48.91 Unspecified atrial fibrillation; J44.9 Chronic obstructive pulmonary disease, unspecified; E11.9 Type 2 diabetes mellitus without complications; F17.200 Nicotine dependence, unspecified, uncomplicated; E78.5 Hyperlipidemia, unspecified; I10 Essential (primary) hypertension; M19.90 Unspecified osteoarthritis, unspecified site; M10.9 Gout, unspecified; Z79.01 Long term (current) use of anticoagulants; Z79.4 Long term (current) use of insulin; Z79.51 Long term (current) use of inhaled steroids; Z79.82 Long term (current) use of aspirin; Z86.718 Personal history of other venous thrombosis and embolism; Z88.8 Allergy status to other drugs, medicaments and biological substances
CPT/HCPCS: 99211

== ENCOUNTER 2020-12-12 11:55 | Day surgery (SDC) | payer OTHER ==
[2020-12-08 16:01] VITALS: BMI 32.8
[2020-12-12] MEDS ORDERED: IV FLUID CONTINUATION 1,000 ML IV ONE (12:40)
[2020-12-12] MEDS ORDERED: LACTATED RINGERS 1,000 ML IV ONE ×2 (12:40→13:06)
[2020-12-12 12:42] VITALS: TEMP 97.6
[2020-12-12] MEDS ORDERED: MIDAZOLAM 2 MG/2 ML VIAL ONE (12:45)
[2020-12-12] MEDS ORDERED: fentaNYL (PF) 50 MCG/ML 2 ML AMP ONE (12:45)
--- NOTE | 2020-12-12 12:57 | P.PCN ---
Date of Procedure: 12/12/20 Procedure(s) Performed: PREOPERATIVE DIAGNOSIS: 1- Lumbar Degenerative Disc Diseases 2-Lumbar spondylosis with Facet arthropathy without myelopathy 3-lumbar radiculopathy POSTOPERATIVE DIAGNOSIS: Same as preop diagnosis. PROCEDURE 1. Lumbar epidural steroid injection under fluoroscopic guidance at the L4-5 level. (Fluoroscopy imaging was available in radiology department) 2. Lumbar epidurogram. ANESTHESIA: Local with 1% lidocaine 3 ml and , moderate sedation with in travenous Versed 2 mg ,and fentanyle 50 Mcg EBL: Minimal PROCEDURE INDICATION: The patient with low back pain and radiculitis symptoms unresponsive to conservative treatment. Fluoroscopy was used to optimize visualization of the needle placement and to maximize safety. PROCEDURE DESCRIPTION / TECHNIQUE: The patient was seen and identified in the preoperative area. Risks, benefits, complications including but not limited to infections ,bleeding ,allergic reaction to the medications ,nerve damage and not complete pain releife , and alternatives were discussed with the patient. The patient agreed to proceed with the procedure and signed the consent. IV was started, and vital signs were stable. Patient was taken to the OR and time out was completed. The patient was placed in the prone position on procedure table and a pillow was placed under the abdomen to reduce lumbar lordosis. The lumbosacral area was prepped and draped in the usual sterile fashion.ere closely monitored during the procedure. Conscious sedation was used during the procedure to decrease patients anxiety. Vital signs was monitered during the entire procedure. Using anterior-posterior fluoroscopy, the L4-5 interlaminar space was identified and the skin over this site was marked and then infiltrated with 1% lidocaine subcutaneously. Subsequently, a 20-gauge Tuohy epidural needle was inserted and advanced toward the epidural space using the ``Loss of resistance technique and guided by AP and lateral fluoroscopy. The correct needle position in the epidural space was verified with the injection of 2 mL of the water soluble contrast dye Isovue 200 contrast and observing an excellent epidurogram with the epidural spread of the dye, after negative aspiration for blood and CSF and in the absence of paresthesias. Again after negative aspiration, a 6 ml mixture containing 60 mg of Depo-medrol , and 2 ml of preservative free Normal Saline, and 2 ml of preservative free lidocaine 1% solution was injected and a washout of epidurogram was seen. Needle was withdrawn intact, skin was cleansed, and bandages were applied. COMPLICATIONS: None DISPOSITION / PLANS: The patient was placed in a supine position and transferred to the recovery area in a stable condition for observation. There was no evidence of lower extremity motor or sensory deficit after the procedure. Patient was discharged from the recovery room after meeting discharge criteria. Home discharge instructions were given to the patient by the staff. The patient was reexamined prior to discharge. The patient will schedule a follow up in the clinic in 2-4 weeks Pateints currentely on Elequis and the last dose was 4 days ago.
[2020-12-12 12:58] LABS: Glucose,Whole Blood 105 mg/dL (75-99)
--- NOTE | 2020-12-12 13:04 | FL ---
EXAMINATION TYPE: FL guided pain mgmt statistic DATE OF EXAM: 12/12/2020 CLINICAL HISTORY: Low back pain. TECHNIQUE: Fluoroscopy. COMPARISON: None. FINDINGS: Fluoroscopic guidance was provided during pain relief procedure performed by Dr. Medina . A total of 8 seconds of fluoroscopic time was utilized during the procedure and 1 spot images are acquired. Single image acquired shows needle localization at L4-L5 level with contrast injection. IMPRESSION: As Above.
[2020-12-12 13:06] VITALS: RESP 18
[2020-12-12 13:22] VITALS: BP 112/78; PULSE 78
== END 2020-12-12 13:50 | disposition home or self-care (01) ==
LOC: ORPAIN 11:55
PROVIDERS: ATTEND Specialist
DX: M51.36 Other intervertebral disc degeneration, lumbar region (principal); M47.816 Spondylosis without myelopathy or radiculopathy, lumbar region
CPT/HCPCS: 62323; J2250; J3010

== ENCOUNTER → 2021-01-03 | Outpatient (CLI) | payer OTHER ==
[2021-01-03 12:24] VITALS: BP 127/69; PULSE 54; RESP 18; TEMP 97.2
--- NOTE | 2021-01-03 12:35 | P.PN ---
Subjective Progress Note Date: 01/03/21 Aravind is a 65-year-old male presenting to clinic today for follow-up appointment after a lumbar epidural steroid injection at L4 5. He has a history of lumbar radiculopathy, lumbar degenerative disc disease, lumbar spondylosis with facet arthropathy without myelopathy. He reported that he had greater than 50% relief with his latest injection. He no longer has pain radiating down his left leg. He still complains of low back pain with right side equal to left. He states his pain is increased with increased activities and increase at work. He is better with rest, interventions, and medications. he denies any bowel or bladder dysfunction. The patient was scheduled to have surgery on his back at [facility] however the surgery had to be canceled because of his inability to stop smoking. The patient's pain gets worse by standing and walking. He takes oxycodone for his pain by his primary care physician. He Does have history of atrial fibrillation with treatment with a Eliquis. The patient failed to respond to physical therapy. Objective - Exam Physical Examinations : -Constitutiona : Cooperative , not in acute distress . -HEENT : nech : supple , no Lymphadenopathy , normal th yroid size . : eyes : no ptosis , no icterus, no photophobia . - neurologic : Cranial nerve II to XII intact , no focal neurological deffecit . -psychatric : alert , oriented X 3 , appropriate affect , intact judgment and insight . -Lymphatic : no Lymphadenopathy . - musculoskeltal : . Lumber spine moter stegnth lower extremities ,thigh and legs 5/5 Right side , 5/5 Left side deep tendon reflexes : normal Knee Jerk , normal ankle Jerk lumber facet Loading Test =positive Right , positive Left Range of motion of the lumbar spine Flexion 30 degrees, extension 10 degrees strait leg raising test = positive at 30 degree Fabere test= positive Right , and positive LT . Sever tenderness over the Sacroiliac joint on the Right , and Left sides Gaenslen test= positive right ,and positive left . Seated flexion test= positive right ,and positive Left . Distraction test= positive bilaterally Sacroiliac compression test= positive bilaterally Assessment and Plan Assessment: Assessment and plan Assessment: Right lumbar radiculopathy due to disc herniation Lumbar spondylosis without myelopathy Atrial fibrillation with treatment with Eliquis COPD Tobacco dependence Diabetes Failure to respond to physical therapy Plan: Repeat lumbar epidural steroid injection at L4 5 Dr. Medina was available by phone for consultation during his visit. I have spent 23 minutes on patient care today. The time was used to review the medical records including relevant urine studies and Prescription history (MAPs), review of the available imaging, evaluation and examination of the patient, coordination of care with the medical staff and if applicable referring physicians, as well as creation of the medical record. - PQRS measures = - Patient's medications are documented in the chart. -Tobacco use is positive and counseling.Given. -Patient's has received pneumococcal vaccine. -Advanced care planning discussed, patient not eligible. -Opiate contract not signed. -Pain positive and follow-up visit/procedure is scheduled. -Patient's blood pressure measured 127/69 , and documented in the record ,and patient will follow up with the primary care. -Patient was not identified as an unhealthy alcohol user Time with Patient: Less than 30
== END ==
LOC: PNWHC3 12:11
PROVIDERS: ATTEND Student in an Organized Health Care Education/Training Program
DX: M51.16 Intervertebral disc disorders with radiculopathy, lumbar region (principal); M47.26 Other spondylosis with radiculopathy, lumbar region; I48.91 Unspecified atrial fibrillation; J44.9 Chronic obstructive pulmonary disease, unspecified; E11.9 Type 2 diabetes mellitus without complications; F17.200 Nicotine dependence, unspecified, uncomplicated; Z79.01 Long term (current) use of anticoagulants; Z88.8 Allergy status to other drugs, medicaments and biological substances
CPT/HCPCS: 99211

== ENCOUNTER 2021-03-15 09:56 | Day surgery (SDC) | payer OTHER ==
[2021-03-12 16:10] VITALS: BMI 32.1
[~2021-03-15 09:56] MED LIST: LACTATED RINGERS 1,000 ML IV SCH
[2021-03-15 10:19] VITALS: TEMP 97.5
[2021-03-15] MEDS ORDERED: LIDOCAINE 1% (10MG/ML) FOR IV START INTRADERMA ONE (10:38)
[2021-03-15 10:47] LABS: Glucose,Whole Blood 159 mg/dL (75-99)
[2021-03-15] MEDS ORDERED: methylPREDNISolone ACETATE 40 MG/ML 1 ML VIAL ONE (11:12)
[2021-03-15] MEDS ORDERED: MIDAZOLAM 2 MG/2 ML VIAL ONE (11:12)
[2021-03-15] MEDS ORDERED: fentaNYL (PF) 50 MCG/ML 2 ML AMP ONE (11:12)
[2021-03-15] MEDS ORDERED: IOPAMIDOL M200 10 ML VIAL ONE (11:12)
--- NOTE | 2021-03-15 11:25 | P.PCN ---
Date of Procedure: 03/15/21 Procedure(s) Performed: PREOPERATIVE DIAGNOSIS: 1- Lumbar Degenerative Disc Diseases 2-Lumbar spondylosis with Facet arthropathy without myelopathy 3-lumbar radiculopathy POSTOPERATIVE DIAGNOSIS: Same as preop diagnosis. PROCEDURE 1. Lumbar epidural steroid injection under fluoroscopic guidance at the L4-5 level. (Fluoroscopy imaging was available in radiology department) 2. Lumbar epidurogram. ANESTHESIA: Local with 1% lidocaine 3 ml and , moderate sedation with intravenous Versed 2 mg ,and fentanyle 50 Mcg EBL: Minimal PROCEDURE INDICATION: The patient with low back pain and radiculitis symptoms unresponsive to conservative treatment. Fluoroscopy was used to optimize visualization of the needle placement and to maximize safety. PROCEDURE DESCRIPTION / TECHNIQUE: The patient was seen and identified in the preoperative area. Risks, benefits, complications including but not limited to infections ,bleeding ,allergic reaction to the medications ,nerve damage and not complete pain releife , and alternatives were discussed with the patient. The patient agreed to proceed with the procedure and signed the consent. IV was started, and vital signs were stable. Patient was taken to the OR and time out was completed. The patient was placed in the prone position on procedure table and a pillow was placed under the abdomen to reduce lumbar lordosis. The lumbosacral area was prepped and draped in the usual sterile fashion.ere closely monitored during the procedure. Conscious sedation was used during the procedure to decrease patients anxiety. Vital signs was monitered during the entire procedure. Using anterior-posterior fluoroscopy, the L4-5 interlaminar space was identified and the skin over this site was marked and then infiltrated with 1% lidocaine subcutaneously. Subsequently, a 20-gauge Tuohy epidural needle was inserted and advanced toward the epidural space using the ``Loss of resistance technique and guided by AP and lateral fluoroscopy. The correct needle position in the epidural space was verified with the injection of 2 mL of the water soluble contrast dye Isovue 200 contrast and observing an excellent epidurogram with the epidural spread of the dye, after negative aspiration for blood and CSF and in the absence of paresthesias. Again after negative aspiration, a 6 ml mixture containing 60 mg of Depo-medrol , and 2 ml of preservative free Normal Saline, and 2 ml of preservative free lidocaine 1% solution was injected and a washout of epidurogram was seen. Needle was withdrawn intact, skin was cleansed, and bandages were applied. COMPLICATIONS: None DISPOSITION / PLANS: The patient was placed in a supine position and transferred to the recovery area in a stable condition for observation. There was no evidence of lower extremity motor or sensory deficit after the procedure. Patient was discharged from the recovery room after meeting discharge criteria. Home discharge instructions were given to the patient by the staff. The patient was reexamined prior to discharge. The patient will schedule a follow up in the clinic in 2-4 weeks Pateints currentely on Elequis and the last dose was 4 days ago.
[2021-03-15] MEDS ORDERED: IV FLUID CONTINUATION 1,000 ML IV ONE (11:30)
[2021-03-15 11:38] VITALS: RESP 16
--- NOTE | 2021-03-15 11:43 | FL ---
Fluoroscopy INDICATION: Pain FINDINGS: Fluoroscopy time: 4 seconds. Images obtained: 1. IMPRESSIONS: 1. Documentation of fluoroscopy.
[2021-03-15 12:01] VITALS: BP 100/62; PULSE 95
== END 2021-03-15 12:18 | disposition home or self-care (01) ==
LOC: ORPAIN 09:56
PROVIDERS: ATTEND Specialist
DX: M51.16 Intervertebral disc disorders with radiculopathy, lumbar region (principal); M47.26 Other spondylosis with radiculopathy, lumbar region; I25.10 Atherosclerotic heart disease of native coronary artery without angina pectoris; E11.9 Type 2 diabetes mellitus without complications; Z79.01 Long term (current) use of anticoagulants; Z88.8 Allergy status to other drugs, medicaments and biological substances
CPT/HCPCS: 62323; J2250; J1030; J3010; Q9966; 99152

== ENCOUNTER → 2021-04-04 | Outpatient (CLI) | payer OTHER ==
--- NOTE | 2021-04-04 12:55 | P.PN ---
Subjective Progress Note Date: 04/04/21 Principal diagnosis: A 65 yr old male with a history of severe and chronic low back pain secondary to lumbar degenerative disc diseases and lumbar spondylosis with facet arthropathy presents today for evaluation status post LESI of the L4-L5 #1. Patient admits he had 50% pain relief status post procedure for 2 weeks but the pain relieving effects started to wear off thereafter. Pain level is currently at 5 out of 10 in intensity, localized in the mid to lower lumbar spine with a squeezing, cramping, tightness with radiation of sharp, shooting pain down the right lower extremity greater than the left. Pain is provoked by lifting, bending and sitting for periods of 45 minutes or more. Pain is alleviated with medications, lidocaine cream, injections, ice, heat, physical therapy, home stretching regimen, laying supine with his legs elevated and rest. Interventional pain procedures completed include LESI of the L4-L5 Patient is currently on oxycodone from a past physician Patient denies any side effects of the medication(s), denies excessive drowsiness or sleepiness, denies suicidal ideation and reports that the current pain medication is helping to control the pain and improve activities of daily living. Patient denies any motor or sensory deficits. Patient denies any fever or night sweats, denies any change in the bowel movements or urination. Physical Examination: -Constitutional: Cooperative. Not in acute distress . -HEENT: Neck is supple. No lymphadenopathy. No thyromegaly. Normal thyroid size. Eyes: No ptosis , no icterus, no photophobia. ENT: No auditory deficits. Normal oropharynx. No Thrush. - Respiratory: Chest clear to auscultations bilaterally. No wheezing. No rhonchi. - Cardiovascular: Regular rate and rhythm. S1 / S2 , no S3 , no S4. - Gastrointestinal: Abdomen soft no tenderness. Bowel sounds positive in all four quadrants. No organomegaly. - Genitourinary: Deferred. - Neurologic: Cranial nerve II to XII intact. No focal neurological deficits. - Psychatric: Alert & oriented x 3. Matching mood & appropriate affect. Judgment and insight intact. - Lymphatic: No Lymphadenopathy. - Musculoskeletal: Cervical spine: Muscle bulk/ tone/ strength in the bilateral upper extremities normal. Facet loading test cervical area positive. Lumbar spine: Motor bulk/ tone/ strength lower extremities , thigh and legs : 5/5 Deep tendon reflexes : Normal Knee Jerk. Normal Ankle Jerk . Vertebral body tenderness to palpation over L4 Lumbar Facet Loading Test positive Straight Leg Raise: positive at 30 degrees right side/ left side Gaenslen's Test postive Sacral spine : Severe tenderness over the Sacroiliac joint: right side / left side Range of motion: Flexion of the lumbar spine <60 degrees Range of motion: Extension of the lumbar spine <20 degrees Gaenslen's Test positive Shelbie test: positive right side / left side Assessment and plan: Chronic low back pain secondary to lumbar degenerative disc disease , lumbar spondylosis with facet arthropathy without myelopathy Recommendation of LESI L4 to L5 #2 Risks, benefits of procedure discussed and patient verbalized understanding To discontinue Eliquis again per protocol All patient questions answered MAPS reviewed and it was appropriate. I have spent 31 minutes on patient care today. Dr Medina was available by phone for the evaluation of this patient. The time was used to review the medical records including relevant urine studies and Prescription history (MAPs), review of the available imaging, evaluation and examination of the patient, coordination of care with the medical staff and if applicable referring physicians, as well as creation of the medical record PQRS Measure Charge Sheet PQRS Narrative: Smoking Status Heavy tobacco smoker Hx Alcohol Use (MH) No Home Medications: Ambulatory Orders allopurinoL [Zyloprim] 100 mg PO DAILY 08/08/14 Aspirin EC [Ecotrin Low Dose] 81 mg PO DAILY tablet. 08/09/14 Atorvastatin [Lipitor] 20 mg PO DAILY 10/21/17 Montelukast [Singulair] 10 mg PO HS 10/21/17 Spironolactone [Aldactone] 25 mg PO BID 10/21/17 amLODIPine [Norvasc] 10 mg PO HS 10/21/17 Albuterol Sulfate [Proair Hfa] 2 puff INHALATION RT-QID PRN 02/18/20 Gabapentin [Neurontin] 600 mg PO BID 02/18/20 Terazosin HCl 5 mg PO HS 02/18/20 Valsartan 320 mg PO DAILY 02/18/20 Sotalol [Betapace] 80 mg PO BID #60 tab 02/25/20 Apixaban [Eliquis] 5 mg PO BID 07/15/20 Glimepiride [Amaryl] 4 mg PO BID-W/MEALS 07/15/20 Insulin Detemir [Levemir Flextouch Pen] 25 units SQ HS 07/15/20 oxyCODONE HCL/ACETAMINOPHEN [oxyCODONE HCL/ACETAMINOPHEN 7.5-325] 1 tab PO TID PRN 11/01/20 Albuterol Nebulized [Ventolin Nebulized] 2.5 mg INHALATION DIRECTED PRN 03/12/21 Baclofen 10 mg PO TID 03/12/21 metOLazone [Zaroxolyn] 2.5 mg PO DAILY 03/12/21
[2021-04-04 14:35] VITALS: BP 104/68; PULSE 47; RESP 16; TEMP 97.9
== END ==
LOC: PNWHC3 12:30
PROVIDERS: ATTEND Physician Assistant Medical
DX: M51.36 Other intervertebral disc degeneration, lumbar region (principal); M47.816 Spondylosis without myelopathy or radiculopathy, lumbar region; G89.29 Other chronic pain; F17.290 Nicotine dependence, other tobacco product, uncomplicated; Z88.8 Allergy status to other drugs, medicaments and biological substances
CPT/HCPCS: 99211

== ENCOUNTER → 2021-05-16 | Outpatient (CLI) | payer OTHER ==
--- NOTE | 2021-05-16 11:53 | P.PN ---
Subjective Progress Note Date: 05/16/21 Principal diagnosis: A 66 yr old male with a history of severe and chronic low back pain secondary to lumbar degenerative disc diseases and lumbar spondylosis with facet arthropathy presents today for evaluation status post LESI L4-L5 #3. Patient states he expressively percent pain relief for 2 weeks status post procedure. Pain level is currently at 5 out of 10 in intensity, localized in the lower back and the paraspinal muscles, left or right of midline, with occasional radiation down the right lower extremity and right foot. Pain is provoked by lifting. Pain is alleviated with medications, topicals, injections, alternating ice and heat, physical therapy 1 year ago though it was unhelpful, chiropractic treatments twice a week, laying supine and elevating the lower extremities and rest. Interventional pain procedures completed include LESI L4-L5 #3 Patient is currently on oxycodone Patient denies any side effects of the medication(s), denies excessive drowsiness or sleepiness, denies suicidal ideation and reports that the current pain medication is helping to control the pain and improve activities of daily living. Patient denies any motor or sensory deficits. Patient denies any fever or night sweats, denies any change in the bowel movements or urination. Physical Examination: -Constitutional: Cooperative. Not in acute distress . -HEENT: Neck is supple. No lymphadenopathy. No thyromegaly. Normal thyroid size. Eyes: No ptosis , no icterus, no photophobia. ENT: No auditory deficits. Normal oropharynx. No Thrush. - Respiratory: Chest clear to auscultations bilaterally. No wheezing. No rhonchi. - Cardiovascular: Regular rate and rhythm. S1 / S2 , no S3 , no S4. - Gastrointestinal: Abdomen soft no tenderness. Bowel sounds positive in all four quadrants. No organomegaly. - Genitourinary: Deferred. - Neurologic: Cranial nerve II to XII intact. No focal neurological deficits. - Psychatric: Alert & oriented x 3. Matching mood & appropriate affect. Judgment and insight intact. - Lymphatic: No Lymphadenopathy. - Musculoskeletal: Cervical spine: Muscle bulk/ tone/ strength in the bilateral upper extremities normal. Facet loading test cervical area positive. Lumbar spine: Motor bulk/ tone/ strength lower extremities , thigh and legs : 5/5 Paraspinal muscle tenderness BL Deep tendon reflexes : Normal Knee Jerk. Normal Ankle Jerk . Vertebral body tenderness to palpation over Lumbar Facet Loading Test positive Straight Leg Raise: positive at 30 degrees right side/ left side Gaenslen's Test positive Sacral spine : Severe tenderness over the Sacroiliac joint: right side / left side Range of motion: Flexion of the lumbar spine <60 degrees Range of motion: Extension of the lumbar spine <20 degrees Gaenslen's Test positive Shelbie test: positive right side / left side Assessment and plan: Chronic low back pain secondary to lumbar degenerative disc disease , lumbar spondylosis with facet arthropathy without myelopathy Recommendation of TPIs of the bilateral L2 to L5 paraspinal muscles. Risks, benefits of procedure discussed patient verbalized understanding. Admits to anticoagulants use. Admits to medical history of diabetes. Protocol for discontinuation/continuation of medications chen procedure discussed. All patient questions answered MAPS reviewed and it was appropriate. I have spent 31 minutes on patient care today. Dr Medina was available by phone for the evaluation of this patient. The time was used to review the medical records including relevant urine studies and Prescription history (MAPs), review of the available imaging, evaluation and examination of the patient, coordination of care with the medical staff and if applicable referring physicians, as well as creation of the medical record PQRS Measure Charge Sheet PQRS Narrative: Smoking Status Heavy tobacco smoker Hx Alcohol Use (MH) No Home Medications: Ambulatory Orders allopurinoL [Zyloprim] 100 mg PO DAILY 08/08/14 Aspirin EC [Ecotrin Low Dose] 81 mg PO DAILY tablet. 08/09/14 Atorvastatin [Lipitor] 20 mg PO DAILY 10/21/17 Montelukast [Singulair] 10 mg PO HS 10/21/17 Spironolactone [Aldactone] 25 mg PO BID 10/21/17 amLODIPine [Norvasc] 10 mg PO HS 10/21/17 Albuterol Sulfate [Proair Hfa] 2 puff INHALATION RT-QID PRN 02/18/20 Gabapentin [Neurontin] 600 mg PO BID 02/18/20 Terazosin HCl 5 mg PO HS 02/18/20 Valsartan 320 mg PO DAILY 02/18/20 Sotalol [Betapace] 80 mg PO BID #60 tab 02/25/20 Apixaban [Eliquis] 5 mg PO BID 07/15/20 Glimepiride [Amaryl] 4 mg PO BID-W/MEALS 07/15/20 Insulin Detemir [Levemir Flextouch Pen] 25 units SQ HS 07/15/20 oxyCODONE HCL/ACETAMINOPHEN [oxyCODONE HCL/ACETAMINOPHEN 7.5-325] 1 tab PO TID PRN 11/01/20 Albuterol Nebulized [Ventolin Nebulized] 2.5 mg INHALATION DIRECTED PRN 03/12/21 Baclofen 10 mg PO TID 03/12/21 metOLazone [Zaroxolyn] 2.5 mg PO DAILY 03/12/21
[2021-05-16 12:31] VITALS: BP 92/52; PULSE 47; RESP 18; TEMP 97.9
== END ==
LOC: PNWHC3 11:29
PROVIDERS: ATTEND Specialist
DX: M51.36 Other intervertebral disc degeneration, lumbar region (principal); M47.816 Spondylosis without myelopathy or radiculopathy, lumbar region; G89.29 Other chronic pain; E11.9 Type 2 diabetes mellitus without complications; F17.290 Nicotine dependence, other tobacco product, uncomplicated; Z79.4 Long term (current) use of insulin; Z88.8 Allergy status to other drugs, medicaments and biological substances
CPT/HCPCS: 99211

== ENCOUNTER 2022-02-06 00:39 | Inpatient (IN) | payer OTHER ==
[2022-02-06] MEDS ORDERED: DEXAMETHASONE SOD PHOSPHATE 10 MG/ML 1 ML VIAL IVP STA (01:12)
[2022-02-06] MEDS ORDERED: IPRATROPIUM 0.5 MG/2.5 ML NEBU INHALATION STA (01:12)
[2022-02-06] MEDS ORDERED: ALBUTEROL NEBULIZED 2.5 MG/3 ML INHALATION STA (01:12)
[2022-02-06 01:13] LABS: Basophils % (A) 0 %; Eosinophils # (A) 0.1 k/uL (0-0.7); Eosinophils % (A) 1 %; HCT 43.4 % (39.0-53.0); HGB 14.6 gm/dL (13.0-17.5); Lymphocytes # (A) 3.5 k/uL (1.0-4.8); Lymphocytes % (A) 32 %; MCH 32.7 pg (25.0-35.0); MCHC 33.6 g/dL (31.0-37.0); MCV 97.2 fL (80.0-100.0); Mean Platelet Volume 7.5; Monocytes # (A) 0.6 k/uL (0-1.0); Monocytes % (A) 6 %; Neutrophils # (A) 6.4 k/uL (1.3-7.7); Neutrophils % (A) 59 %; Platelet Count 202 k/uL (150-450); RBC 4.47 m/uL (4.30-5.90); WBC 10.8 k/uL (3.8-10.6)
[2022-02-06 01:27] LABS: Albumin 4.1 g/dL (3.5-5.0); Calcium 9.3 mg/dL (8.4-10.2); Magnesium 2.3 mg/dL (1.6-2.3); Potassium 4.6 mmol/L (3.5-5.1); Total Bilirubin 0.6 mg/dL (0.2-1.3); Total Protein 6.9 g/dL (6.3-8.2)
--- NOTE | 2022-02-06 01:56 | XR ---
EXAM: XR Chest, 2 Views CLINICAL HISTORY: ITS.REASON XR Reason: Chest pain TECHNIQUE: Frontal and lateral views of the chest. COMPARISON: No relevant prior studies available. FINDINGS: Lungs: No consolidation or mass. Pleural space: No effusion. Heart: No cardiomegaly. Bones/joints: No acute findings. IMPRESSION: No acute cardiopulmonary process.
[2022-02-06] MEDS ORDERED: NALOXONE 0.4 MG/ML 1 ML VIAL IV PRN (02:36)
--- NOTE | 2022-02-06 02:43 | ED ---
General Adult HPI - General Chief complaint: Chest Pain Stated complaint: Chest tightness, SOB Time Seen by Provider: 02/06/22 00:51 Source: patient Mode of arrival: wheelchair Limitations: no limitations - History of Present Illness Initial comments: This is a 66-year-old male with a past medical history including congestive heart failure, COPD, hypertension, diabetes and previous atrial fibrillation status post recent cardioversion 2 weeks ago presented to the emergency department for central chest pain. The patient stated this chest pain began ea rlier today and has been persistent. The patient stated that the chest pain is centralized in the chest and does not radiate. The patient stated that he did not have any nausea, vomiting or diaphoresis with this however did have some minor shortness of breath. The patient stated that he was overcoming influenza and does have some mild wheezing secondaries to his COPD. The patient denied any other acute pain or complaints at this time and denied any recent chest pain. The patient stated that it began today and has not had any chest pain since the cardioversion was performed 2 weeks ago at [facility] in [place]. - Related Data Home Medications Medication Instructions Recorded Confirmed allopurinoL [Zyloprim] 100 mg PO DAILY 08/08/14 06/18/21 Atorvastatin [Lipitor] 20 mg PO DAILY 10/21/17 06/18/21 Montelukast [Singulair] 10 mg PO HS 10/21/17 06/18/21 Spironolactone [Aldactone] 25 mg PO BID 10/21/17 06/18/21 amLODIPine [Norvasc] 10 mg PO HS 10/21/17 06/18/21 Albuterol Sulfate [Proair Hfa] 2 puff INHALATION RT-QID PRN 02/18/20 06/18/21 Gabapentin [Neurontin] 600 mg PO TID 02/18/20 06/18/21 Terazosin HCl 5 mg PO HS 02/18/20 06/18/21 Valsartan 320 mg PO DAILY 02/18/20 06/18/21 Apixaban [Eliquis] 5 mg PO BID 07/15/20 06/18/21 Glimepiride [Amaryl] 4 mg PO BID-W/MEALS 07/15/20 06/18/21 Insulin Detemir [Levemir Flextouch 25 units SQ HS 07/15/20 06/18/21 Pen] oxyCODONE HCL/ACETAMINOPHEN 1 tab PO TID PRN 11/01/20 06/18/21 [oxyCODONE HCL/ACETAMINOPHEN 7.5-325] Albuterol Nebulized [Ventolin 2.5 mg INHALATION DIRECTED PRN 03/12/21 06/18/21 Nebulized] Baclofen 10 mg PO TID 03/12/21 06/18/21 metOLazone [Zaroxolyn] 2.5 mg PO DAILY 03/12/21 06/18/21 Doxycycline Monohydrate [Monodox] 100 mg PO HS 06/18/21 06/18/21 Previous Rx's Medication Instructions Recorded Aspirin EC [Ecotrin Low Dose] 81 mg PO DAILY tablet. 08/09/14 Sotalol [Betapace] 80 mg PO BID #60 tab 02/25/20 Allergies Allergy/AdvReac Type Severity Reaction Status Date / Time insulin glargine AdvReac Diarrhea Verified 06/18/21 11:57 [From Lantus U-100 Insulin] Review of Systems ROS Statement: Those systems with pertinent positive or pertinent negative responses have been documented in the HPI. ROS Other: All systems not noted in ROS Statement are negative. Past Medical History Past Medical History: Atrial Fibrillation, COPD, Diabetes Mellitus, Deep Vein Thrombosis (DVT), Hyperlipidemia, Hypertension, Osteoarthritis (OA), Prostate Disorder, Pulmonary Embolus (PE), Renal Disease, Skin Disorder Additional Past Medical History / Comment(s): "small heart attacks", gout, kidney stones. back pain. kidney function 40%, hypokalemia; wound Rt buttock - using sitz baths History of Any Multi-Drug Resistant Organisms: None Reported Past Surgical History: Cholecystectomy, Heart Catheterization, Orthopedic Surgery Additional Past Surgical History / Comment(s): Cholecystectomy with hernia repair , Bilateral cataract surgery, left knee arthroscopy, ORIF left knee open reduction and internal fixation after injury, pain procedures Past Anesthesia/Blood Transfusion Reactions: No Reported Reaction Past Psychological History: No Psychological Hx Reported Smoking Status: Current every day smoker Past Alcohol Use History: None Reported Past Drug Use History: None Reported - Past Family History Father History Unknown: Yes Family Medical History: Cancer Additional Family Medical History / Comment(s): . Mother History Unknown: Yes Family Medical History: Cancer Additional Family Medical History / Comment(s): . Brother(s) Family Medical History: No Reported History Additional Family Medical History / Comment(s): from overdose Sister(s) Family Medical History: No Reported History Additional Family Medical History / Comment(s): Patient has 2 sisters and mother from drug overdose after chronic pain syndrome from low back pain. General Exam Limitations: no limitations General appearance: alert, in no apparent distress Head exam: Present: atraumatic, normocephalic Eye exam: Present: normal appearance, PERRL Pupils: Present: normal accommodation ENT exam: Present: normal exam, normal oropharynx, mucous membranes moist Neck exam: Present: normal inspection, full ROM Respiratory exam: Present: wheezes (Mild expiratory wheezes heard bilaterally), chest wall tenderness Cardiovascular Exam: Present: regular rate, normal rhythm, normal heart sounds GI/Abdominal exam: Present: soft, normal bowel sounds Extremities exam: Present: normal inspection, normal capillary refill Back exam: Present: normal inspection, full ROM Neurological exam: Present: alert, oriented X3, CN II-XII intact Psychiatric exam: Present: normal affect, normal mood Skin exam: Present: warm, dry Course Vital Signs 02/06/22 02/06/22 02/06/22 00:42 01:25 01:38 Temperature 97.4 F L Pulse Rate 61 54 L 52 L Respiratory 16 Rate Blood Pressure 122/65 O2 Sat by Pulse 98 Oximetry 02/06/22 02/06/22 01:39 01:54 Temperature Pulse Rate 52 L 51 L Respiratory Rate Blood Pressure O2 Sat by Pulse Oximetry EKG Findings - EKG Comments: EKG Findings:: An EKG was obtained and was interpreted by myself. EKG showed a rate of 51, OK interval 177, QRS duration of 80 and QTC of 416. This EKG showed sinus bradycardia with no ST segment elevations or depressions noted. Medical Decision Making - Medical Decision Making The patient was seen and evaluated emergency department. Physical exam, the patient was resting in bed without any acute distress. Vital signs admission were stable and within normal limits. Due to the nature the patient's complaints, laboratory workup was obtained as was a chest x-ray and EKG. Laboratory workup was largely within normal limits. A chest x-ray was obtained and was interpreted by myself showing no acute intrathoracic process. The patient did receive a breathing treatment of albuterol and ipratropium as well as a dose of Decadron secondary to the patient's mild COPD exacerbation. I reevaluation, the patient stated that his chest pain was still persistent and the central sternal area and due to this, the patient was offered observation. The patient did agree to being placed in observation to be seen and evaluated by cardiology in the morning. The patient did state that he was seen by cardiology in the area previously however now sees a cloth burler at [facility] and [place]. The patient continued to remain stable. The covering physician for the patient's primary care physician was contacted and Gera Escobar did accept the patient for admission at 0233. The patient was placed observation in stable condition. - Lab Data Result diagrams: 02/06/22 00:55 02/06/22 00:55 Lab Results 02/06/22 02/06/22 02/06/22 Range/Units 00:55 00:55 00:55 WBC 10.8 H (3.8-10.6) k/uL RBC 4.47 (4.30-5.90) m/uL Hgb 14.6 (13.0-17.5) gm/dL Hct 43.4 (39.0-53.0) % MCV 97.2 (80.0-100.0) fL MCH 32.7 (25.0-35.0) pg MCHC 33.6 (31.0-37.0) g/dL RDW 13.0 (11.5-15.5) % Plt Count 202 (150-450) k/uL MPV 7.5 Neutrophils % 59 % Lymphocytes % 32 % Monocytes % 6 % Eosinophils % 1 % Basophils % 0 % Neutrophils # 6.4 (1.3-7.7) k/uL Lymphocytes # 3.5 (1.0-4.8) k/uL Monocytes # 0.6 (0-1.0) k/uL Eosinophils # 0.1 (0-0.7) k/uL Basophils # 0.0 (0-0.2) k/uL D-Dimer (<0.60) mg/L FEU Sodium 138 (137-145) mmol/L Potassium 4.6 (3.5-5.1) mmol/L Chloride 106 (98-107) mmol/L Carbon Dioxide 25 (22-30) mmol/L Anion Gap 7 mmol/L BUN 33 H (9-20) mg/dL Creatinine 1.60 H (0.66-1.25) mg/dL Est GFR (CKD-EPI)AfAm 52 (>60 ml/min/1.73 sqM) Est GFR (CKD-EPI)NonAf 45 (>60 ml/min/1.73 sqM) Glucose 70 L (74-99) mg/dL Calcium 9.3 (8.4-10.2) mg/dL Magnesium 2.3 (1.6-2.3) mg/dL Total Bilirubin 0.6 (0.2-1.3) mg/dL AST 30 (17-59) U/L ALT 24 (4-49) U/L Alkaline Phosphatase 85 (38-126) U/L Troponin I <0.012 (0.000-0.034) ng/mL NT-Pro-B Natriuret Pep pg/mL Total Protein 6.9 (6.3-8.2) g/dL Albumin 4.1 (3.5-5.0) g/dL 02/06/22 02/06/22 Range/Units 00:55 00:55 WBC (3.8-10.6) k/uL RBC (4.30-5.90) m/uL Hgb (13.0-17.5) gm/dL Hct (39.0-53.0) % MCV (80.0-100.0) fL MCH (25.0-35.0) pg MCHC (31.0-37.0) g/dL RDW (11.5-15.5) % Plt Count (150-450) k/uL MPV Neutrophils % % Lymphocytes % % Monocytes % % Eosinophils % % Basophils % % Neutrophils # (1.3-7.7) k/uL Lymphocytes # (1.0-4.8) k/uL Monocytes # (0-1.0) k/uL Eosinophils # (0-0.7) k/uL Basophils # (0-0.2) k/uL D-Dimer 0.36 (<0.60) mg/L FEU Sodium (137-145) mmol/L Potassium (3.5-5.1) mmol/L Chloride (98-107) mmol/L Carbon Dioxide (22-30) mmol/L Anion Gap mmol/L BUN (9-20) mg/dL Creatinine (0.66-1.25) mg/dL Est GFR (CKD-EPI)AfAm (>60 ml/min/1.73 sqM) Est GFR (CKD-EPI)NonAf (>60 ml/min/1.73 sqM) Glucose (74-99) mg/dL Calcium (8.4-10.2) mg/dL Magnesium (1.6-2.3) mg/dL Total Bilirubin (0.2-1.3) mg/dL AST (17-59) U/L ALT (4-49) U/L Alkaline Phosphatase (38-126) U/L Troponin I (0.000-0.034) ng/mL NT-Pro-B Natriuret Pep 432 pg/mL Total Protein (6.3-8.2) g/dL Albumin (3.5-5.0) g/dL Disposition Clinical Impression: Chest pain Disposition: ADMITTED IP TO THIS HOSP Condition: Stable Is patient prescribed a controlled substance at d/c from ED?: No Referrals: Tanesha Long MD [Primary Care Provider] - 1-2 days Time of Disposition: 02:33 Decision to Admit Reason: Admit from EC Decision Date: 02/06/22 Decision Time: 02:33
[2022-02-06 02:55] LABS: Glucose,Whole Blood 79 mg/dL (70-110)
[2022-02-06 08:08] LABS: Glucose,Whole Blood 260 mg/dL (70-110)
[2022-02-06] MEDS ORDERED: AMINOPHYLLINE 500 MG/20 ML VIAL IV PRN (09:22)
[2022-02-06] MEDS ORDERED: CAFFEINE CITRATE 60 MG/3 ML VIAL IV PRN (09:22)
[2022-02-06] MEDS ORDERED: REGADENOSON 0.4 MG/5 ML SYRINGE IV PRN (09:22)
--- NOTE | 2022-02-06 09:43 | P.CRDCN ---
History of Present Illness Consult date: 02/06/22 Consult reason: chest pain History of present illness: History of present illness: This is a 66-year-old male with past medical history of paroxysmal atrial fibrillation status post cardioversion 2 weeks ago, COPD, hypertension, hyperlipidemia, diabetes,bilateral pulmonary embolism diagnosed in February 2020, myocardial infarction reported by the patient of couple years ago and had a catheterization done about 3 years ago with no blockages found at that time. He follows with junior software engineer Dr. Hare in [place]. Patient presented to the [facility] because he thought he was in atrial fibrillation. He was feeling shaky lightheaded and dizzy and had a tightness in his chest. Symptoms started at 11 PM last night. He denies any radiation of the pain. He did have some shortness of breath and cold feeling but no sweats. Chest discomfort went away on its own. Patient continues to be a smoker. He has no immediate family members with coronary artery disease. Patient denies having any recent stress test. EKG is sinus bradycardia with nonspecific changes Chest x-ray shows no acute process Troponin negative 2. WBC 10.8, hemoglobin 14.6. BUN 33 creatinine 1.6 Echocardiogram 02/2020 revealed EF greater than 55%, mild mitral regurgitation, mild tricuspid regurgitation Home cardiac medications: Norvasc 10 mg at bedtime, eliquis 5 mg twice daily, aspirin 81 mg daily, atorvastatin 20 mg daily, sotalol 80 mg twice daily, Aldactone 25 mg twice daily, valsartan 32 milligrams daily, terazosin 5 mg at bedtime Review Of Systems: At the time of my evaluation Constitutional: No fever, no chills. No weakness, fatigue or lethargy. EENT: No headache. No dizziness. Lungs: No shortness of breath, cough, no sputum production. No wheezing. Cardiovascular: No chest pain, no lower extremity edema. No palpitations. No paroxysmal nocturnal dyspnea. No orthopnea. No lightheadedness or dizziness. No syncopal episodes. Abdominal: No abdominal pain. No nausea, vomiting. No diarrhea. No constipation. No bloody or tarry stools. No loss of appetite. Genitourinary: No dysuria.. No urinary retention. Musculoskeletal: No myalgias. No muscle weakness, no gait dysfunction, no frequent falls. No back pain. No neck pain. Integumentary: No wounds, no lesions. No rash or pruritus. No unusual bruising. Neurologic: No aphasia. No facial droop. No change in mentation. No head injury. No headache. No paralysis. No paresthesia. Psychiatric: No depression. No anxiety. Endocrine: No abnormal blood sugars. Physical examination: Gen: This is a 66-year-old male. He is resting in bed and appears comfortable. VS: reviewed HEENT: Head is atraumatic, normocephalic. Pupils equal, round. Sclerae is anicteric. NECK: Supple. No JVD. No lymphadenopathy. No thyromegaly. LUNGS: Clear to auscultation. No wheezes or rhonchi. No intercostal retractions. HEART: Regular rate and rhythm. No murmur. ABDOMEN: Soft. No tenderness. EXTREMITIES: No pedal edema. No calf tenderness. NEUROLOGICAL: Patient is awake, alert and oriented x3. Cranial nerves 2 through 12 are grossly intact. Assessment: Chest pain, acute coronary syndrome has been ruled out Acute kidney injury Paroxysmal atrial fibrillation status post cardioversion 2 weeks ago COPD Hypertension Hyperlipidemia Diabetes Bilateral pulmonary embolism 02/2020 History of myocardial infarction Plan: Patient will be resumed on his home cardiac medications Obtain Lexiscan stress Cardiolite Obtain 2-D echocardiogram and Doppler study to assess cardiac structure and function If stress test and echocardiogram are within normal limits, patient is cleared from cardiology for discharge and he may follow-up with Dr. Hare, his junior software engineer. Thank you kindly for this consultation. Nurse practitioner note has been reviewed, I agree with documented findings and plan of care. Patient was seen and examined. Past Medical History Past Medical History: Atrial Fibrillation, COPD, Diabetes Mellitus, Deep Vein Thrombosis (DVT), Hyperlipidemia, Hypertension, Osteoarthritis (OA), Prostate Disorder, Pulmonary Embolus (PE), Renal Disease, Skin Disorder Additional Past Medical History / Comment(s): "small heart attacks", gout, kidney stones. back pain. kidney function 40%, hypokalemia; wound Rt buttock - using sitz baths History of Any Multi-Drug Resistant Organisms: None Reported Past Surgical History: Cholecystectomy, Heart Catheterization, Orthopedic Surgery Additional Past Surgical History / Comment(s): Cholecystectomy with hernia repair , Bilateral cataract surgery, left knee arthroscopy, ORIF left knee open reduction and internal fixation after injury, pain procedures Past Anesthesia/Blood Transfusion Reactions: No Reported Reaction Past Psychological History: No Psychological Hx Reported Additional Psychological History / Comment(s): claustrophobic Smoking Status: Current every day smoker Past Alcohol Use History: None Reported Additional Past Alcohol Use History / Comment(s): Patient is smoker 1 ppd since he was 11 years of age. Past Drug Use History: None Reported - Past Family History Father History Unknown: Yes Family Medical History: Cancer Additional Family Medical History / Comment(s): . Mother History Unknown: Yes Family Medical History: Cancer Additional Family Medical History / Comment(s): . Brother(s) Family Medical History: No Reported History Additional Family Medical History / Comment(s): from overdose Sister(s) Family Medical History: No Reported History Additional Family Medical History / Comment(s): Patient has 2 sisters and mother from drug overdose after chronic pain syndrome from low back pain. Medications and Allergies Home Medications Medication Instructions Recorded Confirmed Type allopurinoL [Zyloprim] 100 mg PO DAILY 08/08/14 02/06/22 History Aspirin EC [Ecotrin Low Dose] 81 mg PO DAILY tablet. 08/09/14 02/06/22 Rx Atorvastatin [Lipitor] 20 mg PO DAILY 10/21/17 02/06/22 History Montelukast [Singulair] 10 mg PO HS 10/21/17 02/06/22 History Spironolactone [Aldactone] 25 mg PO BID 10/21/17 02/06/22 History amLODIPine [Norvasc] 10 mg PO HS 10/21/17 02/06/22 History Gabapentin [Neurontin] 600 mg PO TID 02/18/20 02/06/22 History Terazosin HCl 5 mg PO HS 02/18/20 02/06/22 History Valsartan 320 mg PO DAILY 02/18/20 02/06/22 History Sotalol [Betapace] 80 mg PO BID #60 tab 02/25/20 02/06/22 Rx Apixaban [Eliquis] 5 mg PO BID 07/15/20 02/06/22 History Insulin Detemir [Levemir Flextouch 20 units SQ HS 07/15/20 02/06/22 History Pen] oxyCODONE HCL/ACETAMINOPHEN 1 tab PO Q6H PRN 11/01/20 02/06/22 History [oxyCODONE HCL/ACETAMINOPHEN 7.5-325] Albuterol Nebulized [Ventolin 2.5 mg INHALATION RT-QID PRN 03/12/21 02/06/22 History Nebulized] Baclofen 10 mg PO TID 03/12/21 02/06/22 History Doxycycline Monohydrate [Monodox] 100 mg PO BID 06/18/21 02/06/22 History Albuterol Sulfate [Albuterol 2 puff PO RT-Q4H PRN 02/06/22 02/06/22 History Sulfate Hfa] Budesonide/Formoterol Fumarate 2 puff INHALATION RT-BID 02/06/22 02/06/22 History [Symbicort 160-4.5 Mcg Inhaler] Ergocalciferol [Vitamin D2 (1250 1,250 mcg PO FR 02/06/22 02/06/22 History Mcg = 38874 Iu)] Triamcinolone 0.5% Cream [Kenalog 1 applic TOPICAL BID 02/06/22 02/06/22 History 0.5% Cream] Allergies Allergy/AdvReac Type Severity Reaction Status Date / Time insulin glargine AdvReac Diarrhea Verified 02/06/22 09:05 [From Lantus U-100 Insulin] Physical Exam Vitals: Vital Signs Temp Pulse Pulse Resp BP BP Pulse Ox 02/06/22 02:47 53 L 16 95/57 97 02/06/22 02:30 97.3 F L 55 L 17 100/60 97 02/06/22 01:54 51 L 02/06/22 01:39 52 L 02/06/22 01:38 52 L 02/06/22 01:25 54 L 02/06/22 00:42 97.4 F L 61 16 122/65 98 Intake and Output 02/05/22 02/06/22 02/06/22 22:59 06:59 14:59 Intake Total 500 Balance 500 Intake: Oral 500 Other: Weight 99.7 kg Results 02/06/22 00:55 02/06/22 00:55 Cardiac Enzymes 02/06/22 02/06/22 Range/Units 00:55 00:55 AST 30 (17-59) U/L Troponin I <0.012 (0.000-0.034) ng/mL CBC 12/21/22 Range/Units 00:55 WBC 10.8 H (3.8-10.6) k/uL RBC 4.47 (4.30-5.90) m/uL Hgb 14.6 (13.0-17.5) gm/dL Hct 43.4 (39.0-53.0) % Plt Count 202 (150-450) k/uL Comprehensive Metabolic Panel 02/06/22 Range/Units 00:55 Sodium 138 (137-145) mmol/L Potassium 4.6 (3.5-5.1) mmol/L Chloride 106 (98-107) mmol/L Carbon Dioxide 25 (22-30) mmol/L BUN 33 H (9-20) mg/dL Creatinine 1.60 H (0.66-1.25) mg/dL Glucose 70 L (74-99) mg/dL Calcium 9.3 (8.4-10.2) mg/dL AST 30 (17-59) U/L ALT 24 (4-49) U/L Alkaline Phosphatase 85 (38-126) U/L Total Protein 6.9 (6.3-8.2) g/dL Albumin 4.1 (3.5-5.0) g/dL Current Medications Generic Name Dose Route Start Last Admin Trade Name Freq PRN Reason Stop Dose Admin Naloxone HCl 0.2 mg 02/06/22 02:36 Naloxone 0.4 Mg/Ml 1 Ml Vial IV Q2M PRN Opioid Reversal Intake and Output 02/05/22 02/06/22 02/06/22 22:59 06:59 14:59 Intake Total 500 Balance 500 Intake: Oral 500 Other: Weight 99.7 kg 02/06/22 00:55 02/06/22 00:55
[2022-02-06] MEDS ORDERED: SPIRONOLACTONE 25 MG TAB PO SCH (09:45)
[2022-02-06] MEDS ORDERED: VALSARTAN 160 MG TAB PO SCH (09:45)
[2022-02-06 12:06] LABS: Glucose,Whole Blood 204 mg/dL (70-110)
[2022-02-06] MEDS ORDERED: oxyCODONE-APAP 7.5-325MG 1 EACH TAB PO PRN (12:41)
[2022-02-06] MEDS ORDERED: BACLOFEN 10 MG TAB PO PRN (12:41)
[2022-02-06] MEDS ORDERED: DEXTROSE 50% SYRINGE 50 ML IVP PRN ×2 (12:45)
[2022-02-06] MEDS ORDERED: LOPERAMIDE 2 MG CAP PO PRN (13:03)
[2022-02-06] MEDS ORDERED: LOPERAMIDE 2 MG CAP PO STA (13:03)
--- NOTE | 2022-02-06 13:31 | CA ---
Lexiscan Nuclear Stress Test Report Name: Aravind Perea Exam Date: 02/06/2022 11:04 Exam Location: [facility] Ht (in): 71 Wt (lb): 225 BSA: 2.22 Ordering Phys: Loni Diaz Referring Phys: MAYA LUCAS,, Technologist: Jessica Soto RDCS Age: 66 Gender: M : 1955 Procedure CPT: Indications: Reflex order-Stress test ICD-10 Codes: Patient History: cp, sangeeta, palp, HTN, CHOLERSTEROL, FAM HX, SMOKER, GA, CATCH, COPD Medications: Meds past 24 hrs: Pretest Chest Pain: STRESS TEST Lexiscan Protocol Exercise Duration (min:sec): 01:[address] Depressions (mm): Angina Score: Pereira Score: Resting HR (bpm): 63 Peak HR (bpm): 101 Resting BP (mmHg): 131 / 74 Peak BP (mmHg): 135 / 71 MPHR: 156 Target HR: 133 % MPHR: 65 METS: 1.0 Total Dose: Peak Dose: Atropine: Double Product: 52569 BP Response: Stress Termination: Stress Symptoms: SOB Stress Summary: ECG ANALYSIS Resting ECG: Stress ECG: CONCLUSIONS Non-diagnostic electrocardiogram stress testing Please follow-up on the Cardiolite portion Dr. Phil Farley MD (Electronically Signed) Final Date: 06 February 2022 13:30
--- NOTE | 2022-02-06 13:52 | NM ---
EXAMINATION TYPE: NM stress lexiscan cardiolite DATE OF EXAM: 02/06/2022 COMPARISON: NONE HISTORY: Chest pain TECHNIQUE: After the intravenous administration of 9.9 mCi Tc 99m Sestamibi - Cardiolite resting SPE CT images acquired 45 minutes post injection. The patient received 0.4mg Lexiscan, 25.2 mCi Tc 99m Sestamibi - Stress images obtained [address] injection FINDINGS: Review of stress and rest SPECT images decreased perfusion on stress imaging involving the inferior w all of the left ventricle as well as the apical septal wall and lateral wall. Gated analysis shows hy pokinesia with an estimated left ventricular ejection fraction of 34 %. IMPRESSION: Stress-induced ischemia as noted above.
[2022-02-06] MEDS ORDERED: ALPRAZolam 0.5 MG TAB PO PRN (13:58)
[2022-02-06] MEDS ORDERED: NITROGLYCERIN SL TABS 0.4 MG TAB SUBLINGUAL PRN (13:58)
[2022-02-06] MEDS ORDERED: ALPRAZolam 0.25 MG TAB PO PRN (13:58)
--- NOTE | 2022-02-06 14:48 | CA ---
Transthoracic Echo Report Name: Aravind Perea Age: 66 Gender: M : 1955 Exam Date: 02/06/2022 08:50 Exam Location: [facility] Ht (in): 71 Wt (lb): 219 Ordering Physician: Loni Diaz Attending/Referring Phys: [id number], Emily Icu Staff Nurse Bessie Hart RDCS Procedure CPT: Indications: LVF Cardiac Hx: Technical Quality: Fair Contrast 1: Total Dose (mL): Contrast 2: Total Dose (mL): MEASUREMENTS (Male / Female) Normal Values 2D ECHO LV Diastolic Diameter PLAX 5.2 cm 4.2 - 5.9 / 3.9 - 5.3 cm LV Systolic Diameter PLAX 3.6 cm IVS Diastolic Thickness 1.6 cm 0.6 - 1.0 / 0.6 - 0.9 cm LVPW Diastolic Thickness 1.5 cm 0.6 - 1.0 / 0.6 - 0.9 cm LV Relative Wall Thickness 0.6 RV Internal Dim ED PLAX 3.9 cm LA Volume 77.0 cm??? 18 - 58 / 22 - 52 cm??? M-MODE Aortic Root Diameter MM 2.8 cm LA Systolic Diameter MM 4.6 cm LA Ao Ratio MM 1.6 AV Cusp Separation MM 2.0 cm DOPPLER AV Peak Velocity 153.9 cm/s AV Peak Gradient 9.5 mmHg AV Mean Velocity 100.5 cm/s AV Mean Gradient 4.5 mmHg AV Velocity Time Integral 31.7 cm LVOT Peak Velocity 122.7 cm/s LVOT Peak Gradient 6.0 mmHg MV Area PHT 2.3 cm??? Mitral E Point Velocity 59.9 cm/s Mitral A Point Velocity 81.6 cm/s Mitral E to A Ratio 0.7 MV Deceleration Time 327.8 ms MV E' Velocity 5.0 cm/s Mitral E to MV E' Ratio 12.1 TR Peak Velocity 149.9 cm/s TR Peak Gradient 9.0 mmHg Right Ventricular Systolic Press 13.9 mmHg FINDINGS Left Ventricle Moderately increased left ventricular wall thickness. Normal left ventricular systolic function with no obvious regional wall motion abnormalities. Left ventricular ejection fraction is estimated at 55-60 %. Right Ventricle Moderate right ventricular dilatation. Right ventricular systolic pressure within normal limits. Right Atrium Mild right atrial dilatation. Left Atrium Moderately increased left atrial volume. Mildly increased left atrial area. Mitral Valve Mitral valve thickened. Mild mitral annular calcification. Mild mitral regurgitation. Aortic Valve Trileaflet aortic valve. No aortic valve stenosis or regurgitation. Tricuspid Valve Structurally normal tricuspid valve. Mild tricuspid regurgitation. Pulmonic Valve Trace pulmonic regurgitation. Pericardium No pericardial effusion. Aorta Normal size aortic root and proximal ascending aorta. CONCLUSIONS Normal left ventricular dimension and systolic function Mild mitral regurgitation Previewed by: Dr. Phil Farley MD (Electronically Signed) Final Date: 06 February 2022 14:48
[2022-02-06] MEDS: ALBUTEROL NEBULIZED 2.5 MG/3 ML INHALATION PRN (15:21)
[2022-02-06] MEDS: GABAPENTIN 100 MG CAP PO SCH ×2 (15:59→20:26)
[2022-02-06] MEDS: SODIUM CHLORIDE 0.9% 1,000 ML IV SCH (15:59)
[2022-02-06 17:26] LABS: Glucose,Whole Blood 151 mg/dL (70-110)
[2022-02-06] MEDS: INSULIN ASPART (NovoLOG) 100 UNIT/ML VIAL SQ SCH ×2 (18:20→22:08)
[2022-02-06] MEDS: SYMBICORT 160-4.5 MCG INHALER INHALATION SCH (19:25)
[2022-02-06] MEDS: NICOTINE 21MG/24HR PATCH TRANSDERM SCH (20:25)
[2022-02-06] MEDS: SOTALOL 80 MG TAB PO SCH (20:30)
[2022-02-06] MEDS ORDERED: GABAPENTIN 100 MG CAP PO STA (20:55)
[2022-02-06] MEDS ORDERED: MONTELUKAST 10 MG TAB PO SCH (21:00)
[2022-02-06] MEDS ORDERED: INSULIN DETEMIR (LEVEMIR) 100 UNIT/ML SYR SQ SCH (21:00)
[2022-02-06] MEDS ORDERED: APIXABAN 5 MG TAB PO SCH (21:00)
[2022-02-06] MEDS ORDERED: DOXAZOSIN 4 MG TAB PO SCH (21:00)
[2022-02-06] MEDS ORDERED: amLODIPine 10 MG TAB PO SCH (21:00)
[2022-02-06 21:48] LABS: Glucose,Whole Blood 213 mg/dL (70-110)
[2022-02-07] MEDS: SODIUM CHLORIDE 0.9% 1,000 ML IV SCH ×2 (02:23→16:12)
[2022-02-07 04:15] VITALS: RESP 16
--- NOTE | 2022-02-07 05:21 | P.HPIM ---
History of Present Illness H&P Date: 02/06/22 This is a 66-year-old male who presented to the emergency department with chest pain that began earlier today and persistent with no associated nausea vomiting or diuresis. Patient reports he did have some shortness of breath. Patient reports he follows with Dr. Long in the outpatient setting with a past medical history of paroxysmal atrial fibrillation, COPD, hypertension, diabetes and status post recent cardioversion 2-3 weeks ago at [facility]. Patient see recently had influenza he continues with a cough from this. Patient also with a past medical history of DVT, hyperlipidemia, hypertension, osteoarthritis, PE, chronic kidney disease, diabetes mellitus. Patient reports he has had poor kidney functions since passing kidney stones in the past. Patient also reports of doxycycline for acne on his buttock that is prescribed by his primary care provider. Patient was admitted with cardiology on consult due to chest pain. Labs reviewed and within normal limits other than an elevated creatinine and will initiate gentle IV hydration. Chest x-ray reveals no acute cardiopulmonary process an EKG shows sinus bradycardia. 2-D echo ordered. Awaiting cardiology consultation and recommended telemetry monitoring. Review Of Systems: Constitutional: No fever, no chills, no night sweats. No weight change. No weakness, fatigue or lethargy. No daytime sleepiness. EENT: No headache. No blurred vision or double vision, no loss of vision. No loss of Hearing, no ringing in the ears, no dizziness. No nasal drainage or congestion. No epistaxis. No sore throat. Lungs: Reports of mild shortness of breath with cough, no sputum production. No wheezing. Cardiovascular: Reports of chest pain in the sternal area, no lower extremity edema. No palpitations. No paroxysmal nocturnal dyspnea. No orthopnea. No lightheadedness or dizziness. No syncopal episodes. Abdominal: No abdominal pain. No nausea, vomiting. Reports diarrhea. No constipation. No bloody or tarry stools.. No loss of appetite. Genitourinary: No dysuria, increased frequency, urgency. No urinary retention. Musculoskeletal: No myalgias. No muscle weakness, no gait dysfunction, no frequent falls. No back pain. No neck pain. Integumentary: No wounds, no lesions. No rash or pruritus. No unusual bruising. No change in hair or nails. Neurologic: No aphasia. No facial droop. No change in mentation. No head injury. No headache. No paralysis. No paresthesia. Psychiatric: No depression. No anxiety. No mood swings. Endocrine: No abnormal blood sugars. No weight change. No excessive sweating or thirst. No cold intolerance. PHYSICAL EXAMINATION: GENERAL: The patient is alert and oriented x4, Well developed, well nourished. HEENT: Pupils are round and equally reacting to light. EOMI. no scleral icterus. No conjunctival pallor. Normocephalic, atraumatic. No pharyngeal erythema. No thyromegaly. CARDIOVASCULAR: S1 and S2 muffled PULMONARY: diminished breath sounds bilaterally with no wheezing or rhonchi noted. ABDOMEN: soft. Nontender on exam. non-distended, normoactive bowel sounds. No palpable organomegaly. MUSCULOSKELETAL: No joint swelling or deformity. EXTREMITIES: No cyanosis, clubbing, or pedal edema. NEUROLOGICAL: Gross neurological examination did not reveal any focal deficits. SKIN: No rashes. healed lesions on the buttocks bilaterally Assessment: Chest pain, ACS ruled out with negative troponins Acute kidney injury, possibly secondary to dehydration and diarrhea History of COPD, not an exacerbation Diarrhea, rule out C. diff Recent cardioversion at [facility] with Dr. Hare he follows with now History of paroxysmal atrial fibrillation Diabetes mellitus Continued ongoing nicotine dependence Hypertension Hyperlipidemia History of bilateral pulmonary emboli in 2020 History of myocardial infarction GI prophylaxis DVT prophylaxis Full code Plan: Recommend to continue with current medications and management cardiology GE cons ulted and following. 2-D echo revealed EF of 55% and stress test ordered. Stress revealed reducible ischemia and recommending cardiac catheterization. Patient will be nothing by mouth at midnight and will await Report home medications have been reviewed and resumed and recommend Accu-Cheks before meals and at bedtime with sliding scale and long-acting insulin Will give gentle IV hydration his kidney functions are elevated at 1.6 and follow-up with repeat labs in a.m. Patient continues to smoke and will provide nicotine patch C. diff testing was negative and will add Imodium Recommend diabetic diet Will await catheterization report and follow-up with cardiology recommend continue with telemetry monitoring The impression and plan of care has been dictated by Perla Rivas, nurse practitioner as directed. Dr. Xcohitl CAMERON I have performed a history and examination and MDM of this patient, discussed the same with the dictator, and agree with the dictator's assessment and plan as written ,documented as a scribe. Based on total visit time, I have performed more than 50% of the visit. Any additional findings or plans will be noted. Past Medical History Past Medical History: Atrial Fibrillation, COPD, Diabetes Mellitus, Deep Vein Thrombosis (DVT), Hyperlipidemia, Hypertension, Osteoarthritis (OA), Prostate Disorder, Pulmonary Embolus (PE), Renal Disease, Skin Disorder Additional Past Medical History / Comment(s): "small heart attacks", gout, kidney stones. back pain. kidney function 40%, hypokalemia; wound Rt buttock - using sitz baths History of Any Multi-Drug Resistant Organisms: None Reported Past Surgical History: Cholecystectomy, Heart Catheterization, Orthopedic Surgery Additional Past Surgical History / Comment(s): Cholecystectomy with hernia repair , Bilateral cataract surgery, left knee arthroscopy, ORIF left knee open reduction and internal fixation after injury, pain procedures Past Anesthesia/Blood Transfusion Reactions: No Reported Reaction Past Psychological History: No Psychological Hx Reported Additional Psychological History / Comment(s): claustrophobic Smoking Status: Current every day smoker Past Alcohol Use History: None Reported Additional Past Alcohol Use History / Comment(s): Patient is smoker 1 ppd since he was 11 years of age. Past Drug Use History: None Reported - Past Family History Father History Unknown: Yes Family Medical History: Cancer Additional Family Medical History / Comment(s): . Mother History Unknown: Yes Family Medical History: Cancer Additional Family Medical History / Comment(s): . Brother(s) Family Medical History: No Reported History Additional Family Medical History / Comment(s): from overdose Sister(s) Family Medical History: No Reported History Additional Family Medical History / Comment(s): Patient has 2 sisters and mother from drug overdose after chronic pain syndrome from low back pain. Medications and Allergies Home Medications Medication Instructions Recorded Confirmed Type allopurinoL [Zyloprim] 100 mg PO DAILY 08/08/14 02/06/22 History Aspirin EC [Ecotrin Low Dose] 81 mg PO DAILY tablet. 08/09/14 02/06/22 Rx Atorvastatin [Lipitor] 20 mg PO DAILY 10/21/17 02/06/22 History Montelukast [Singulair] 10 mg PO HS 10/21/17 02/06/22 History Spironolactone [Aldactone] 25 mg PO BID 10/21/17 02/06/22 History amLODIPine [Norvasc] 10 mg PO HS 10/21/17 02/06/22 History Gabapentin [Neurontin] 600 mg PO TID 02/18/20 02/06/22 History Terazosin HCl 5 mg PO HS 02/18/20 02/06/22 History Valsartan 320 mg PO DAILY 02/18/20 02/06/22 History Sotalol [Betapace] 80 mg PO BID #60 tab 02/25/20 02/06/22 Rx Apixaban [Eliquis] 5 mg PO BID 07/15/20 02/06/22 History Insulin Detemir [Levemir Flextouch 20 units SQ HS 07/15/20 02/06/22 History Pen] oxyCODONE HCL/ACETAMINOPHEN 1 tab PO Q6H PRN 11/01/20 02/06/22 History [oxyCODONE HCL/ACETAMINOPHEN 7.5-325] Albuterol Nebulized [Ventolin 2.5 mg INHALATION RT-QID PRN 03/12/21 02/06/22 History Nebulized] Baclofen 10 mg PO TID 03/12/21 02/06/22 History Doxycycline Monohydrate [Monodox] 100 mg PO BID 06/18/21 02/06/22 History Albuterol Sulfate [Albuterol 2 puff PO RT-Q4H PRN 02/06/22 02/06/22 History Sulfate Hfa] Budesonide/Formoterol Fumarate 2 puff INHALATION RT-BID 02/06/22 02/06/22 History [Symbicort 160-4.5 Mcg Inhaler] Ergocalciferol [Vitamin D2 (1250 1,250 mcg PO FR 02/06/22 02/06/22 History Mcg = 72489 Iu)] Triamcinolone 0.5% Cream [Kenalog 1 applic TOPICAL BID 02/06/22 02/06/22 History 0.5% Cream] Allergies Allergy/AdvReac Type Severity Reaction Status Date / Time insulin glargine AdvReac Diarrhea Verified 02/06/22 09:05 [From Lantus U-100 Insulin] Physical Exam Vitals: Vital Signs Temp Pulse Pulse Resp BP BP Pulse Ox 02/06/22 07:03 97.8 F 95 20 91/49 95 02/06/22 02:47 53 L 16 95/57 97 02/06/22 02:30 97.3 F L 55 L 17 100/60 97 02/06/22 01:54 51 L 02/06/22 01:39 52 L 02/06/22 01:38 52 L 02/06/22 01:25 54 L 02/06/22 00:42 97.4 F L 61 16 122/65 98 Intake and Output 02/05/22 02/06/22 02/06/22 22:59 06:59 14:59 Intake Total 500 Balance 500 Intake: Oral 500 Other: Weight 99.7 kg Results CBC & Chem 7: 02/06/22 00:55 02/06/22 00:55 Labs: Abnormal Lab Results - Last 24 Hours (Table) 02/06/22 02/06/22 02/06/22 Range/Units 00:55 00:55 08:07 WBC 10.8 H (3.8-10.6) k/uL BUN 33 H (9-20) mg/dL Creatinine 1.60 H (0.66-1.25) mg/dL Glucose 70 L (74-99) mg/dL POC Glucose (mg/dL) 260 H (70-110) mg/dL Thrombosis Risk Factor Assmnt - DVT/VTE Prophylaxis DVT/VTE Prophylaxis: Pharmacologic Prophylaxis ordered Assessment and Plan Time with Patient: Greater than 30
[2022-02-07] MEDS ORDERED: ASPIRIN 325 MG TAB PO ONE (06:00)
[2022-02-07] MEDS ORDERED: ATORVASTATIN 80 MG TAB PO ONE (06:00)
[2022-02-07] MEDS: INSULIN ASPART (NovoLOG) 100 UNIT/ML VIAL SQ SCH ×2 (06:16→12:50)
[2022-02-07 06:17] LABS: Glucose,Whole Blood 147 mg/dL (70-110)
[2022-02-07] MEDS ORDERED: HEPARIN SODIUM,PORCINE 10,000 UNIT in SODIUM CHLORIDE 0.9% 1,000 ML IRRIGATION PRN (07:00)
[2022-02-07] MEDS ORDERED: HEPARIN SODIUM,PORCINE 2,500 UNIT in SODIUM CHLORIDE 0.9% 250 ML IRRIGATION PRN (07:00)
[2022-02-07] MEDS ORDERED: VERAPAMIL 2.5 MG/ML 2 ML AMP ONE (08:05)
[2022-02-07] MEDS ORDERED: SODIUM CHLORIDE 0.9% 1,000 ML IV ONE (08:07)
[2022-02-07] MEDS: SYMBICORT 160-4.5 MCG INHALER INHALATION SCH ×2 (08:09→11:52)
[2022-02-07] MEDS ORDERED: MIDAZOLAM 2 MG/2 ML VIAL IV ONE (08:19)
[2022-02-07] MEDS ORDERED: LIDOCAINE 1% INJ 10MG/ML (5 ML VIAL-PF) SQ ONE (08:22)
[2022-02-07] MEDS ORDERED: HEPARIN SODIUM 1,000 UN/ML (10ML VL) ONE (08:23)
[2022-02-07] MEDS ORDERED: VERAPAMIL SYRINGE (5 MG/10 ML) INTRAARTER ONE (08:27)
[2022-02-07] MEDS ORDERED: HEPARIN SODIUM 1,000 UN/ML (10ML VL) IV ONE (08:28)
[2022-02-07] MEDS ORDERED: fentaNYL (PF) 50 MCG/ML 2 ML AMP ONE (08:34)
[2022-02-07] MEDS ORDERED: fentaNYL (PF) 50 MCG/ML 2 ML AMP IV ONE (08:36)
[2022-02-07] MEDS ORDERED: IOPAMIDOL-370 125ML BTL INJ ONE ×2 (08:36)
[2022-02-07] MEDS ORDERED: RX INFO: IV CONTRAST WAS GIVEN 1 EACH MISC MISCELLANE PRN (08:44)
[2022-02-07] MEDS ORDERED: SODIUM CHLORIDE 0.9% 1,000 ML IV SCH (08:45)
--- NOTE | 2022-02-07 08:54 | P.PCN ---
Date of Procedure: 02/07/22 Operative Findings: CARDIAC CATHETERIZATION PERFORMING PHYSICIAN: Phil Farley MD, RPVI PROCEDURE PERFORMED: 1. Selective right and left coronary angiogram 2. Left heart catheterization INDICATION: This is a 66-year-old gentleman with hypertension and dyslipidemia who presented to the hospital with a chest discomfort. He underwent myocardial perfusion imaging stress is and that revealed an inferior ischemia. For that reason a heart catheterization was advised COMPLICATION: None APPROACH: Right radial artery LEVEL OF SEDATION: Moderate with a sedation length of 15 minutes PROCEDURE DESCRIPTION: After obtaining an informed consent, the patient was brought to cardiac slab lifting engineer. Local anesthesia was performed using lidocaine subcutaneously. The right radial artery was cannulated using Seldinger technique, the guidewire passed e asily, following that we advanced a 5-Malawian sheath dilator assembly, the wire and dilator were removed and sheath was flushed. Following that, 2 mg of verapamil along with 5000 unit heparin were given. Selective right and left coronary angiogram using a 6-Malawian JR4 and JL 3.5 catheters. Following that we did left heart catheterization using 6-Malawian pigtail catheter. The procedure was completed there was no complication. SELECTIVE CORONARY ANGIOGRAM: The right coronary artery: Large caliber vessel and a dominant vessel. The RCA is chronically occluded in the midportion. It fills by ipsilateral and contralateral collaterals Left main: Angiographically normal. Bifurcates into LCx and LAD The left circumflex: Large caliber vessel nondominant vessel. The proximal LCx has a hazy lesion appeared to be in the range of 40-50%. It gives rises into the first and second obtuse marginal branches and both appear to have mild disease only. The circumflex continue after that as a small-caliber vessel in the AV groove The left anterior descending artery: Large-caliber vessel. The proximal LAD appeared to have mild disease only. The mid LAD also appears to have mild disease only. The LAD distally appears to be angiographically normal. The LAD gives rises into a diagonal branch which appears to be a moderate caliber vessel was mild disease only HEMODYNAMICS: The LVEDP was 12 mmHg was no significant gradient across aortic valve CONCLUSION: 1. Chronic total occlusion of the RCA which fills by ipsilateral and contralateral collaterals 2. Mild to moderate nonobstructive disease involving the left coronary system 3. Normal left-sided filling POSTPROCEDURE MANAGEMENT: Maximize medical treatment and follow-up with the patient
[2022-02-07 09:00] LABS: Basophils # (A) 0.02 X 10*3/uL (0.00-0.10); Basophils % (A) 0.2 %; Eosinophils # (A) 0.01 X 10*3/uL (0.04-0.35); Eosinophils % (A) 0.1 %; HCT 40.5 % (39.6-50.0); HGB 13.1 g/dL (13.0-17.0); Immature Grans, Automated 0.3 %; Lymphocytes # (A) 2.27 X 10*3/uL (0.90-5.00); Lymphocytes % (A) 17.9 %; MCH 32.3 pg (27.0-32.0); MCHC 32.3 g/dL (32.0-37.0); Mean Platelet Volume 9.7 fL (9.5-12.2); Monocytes # (A) 0.99 X 10*3/uL (0.20-1.00); Monocytes % (A) 7.8 %; NRBC Per 100 WBC 0 /100 WBCS (0.0-0.0); Neutrophils # (A) 9.34 X 10*3/uL (1.80-7.70); Neutrophils % (A) 73.7 %; Platelet Count 200 X 10*3/uL (140-440); RBC 4.05 X 10*6/uL (4.40-5.60); RDW 13.5 % (11.5-14.5); WBC 12.67 X 10*3/uL (4.50-10.00)
[2022-02-07] MEDS ORDERED: allopurinoL 100 MG TAB PO SCH (09:00)
[2022-02-07] MEDS ORDERED: ATORVASTATIN 20 MG TAB PO SCH (09:00)
[2022-02-07] MEDS ORDERED: ASPIRIN 81 MG PO SCH (09:00)
[2022-02-07 09:12] LABS: African American GFR (CKD) 66.8 (60.0-200.0); Anion Gap 9.1 mmol/L (10.00-18.00); BUN/Creat Ratio 19.77 Ratio (12.00-20.00); Blood Urea Nitrogen 25.7 mg/dL (9.0-27.0); Calcium 9.2 mg/dL (8.7-10.3); Carbon Dioxide 23.9 mmol/L (20.0-27.5); Non-African American GFR(CKD) 57.7 (60.0-200.0); Potassium 4.7 mmol/L (3.5-5.5)
[2022-02-07] MEDS: SOTALOL 80 MG TAB PO SCH (09:37)
[2022-02-07] MEDS: NICOTINE 21MG/24HR PATCH TRANSDERM SCH (09:43)
[2022-02-07] MEDS: GABAPENTIN 100 MG CAP PO SCH ×2 (09:43→16:12)
[2022-02-07] MEDS: ALBUTEROL NEBULIZED 2.5 MG/3 ML INHALATION PRN ×2 (11:48→16:16)
[2022-02-07 12:48] LABS: Glucose,Whole Blood 125 mg/dL (70-110)
[2022-02-07 15:10] VITALS: BP 121/61; TEMP 97.5
[2022-02-07 20:07] VITALS: PULSE 51
--- NOTE | 2022-02-11 09:35 | P.DS ---
Providers Date of admission: 02/07/22 08:47 Expected date of discharge: 02/07/22 Attending physician: Suyapa Leung Consults: 02/06/22 02:36 Consult Physician Routine Consulting Provider: [facility] Consult Reason/Comments: Chest pain, recent cardioversion Do you want consulting provider notified?: Yes, Notify in am Primary care physician: Tanesha Long Hospital Course: Final diagnosis Chest pain, ACS ruled out with negative troponins Acute kidney injury, possibly secondary to dehydration and diarrhea History of COPD, not an exacerbation Diarrhea, rule out C. diff Recent cardioversion at [facility] with Dr. Hare he follows with now History of paroxysmal atrial fibrillation Diabetes mellitus Continued ongoing nicotine dependence Hypertension Hyperlipidemia History of bilateral pulmonary emboli in 2020 History of myocardial infarction GI prophylaxis DVT prophylaxis Full code Discharge disposition Patient is being discharged in a stable condition with guarded prognosis to home . Patient will follow-up with Dr. Long in the outpatient setting upon discharge. Patient is to follow-up with his coil repair technician out of [place] Dr. Hare as scheduled. Continue with current medications and maximizing cardiac medical management. Total time taken is greater than 35 minutes. Hospital course This is a 66-year-old male who was recently admitted with chest pain was evaluated by cardiology underwent stress test which was abnormal and underwent cardiac catheterization showing right RCA occlusion with collateral circulation with no stenting. patient with some acute kidney injury recommending follow-up with nephrology along with his coil repair technician and primary care provider outpatient. Patient strongly encouraged to avoid tobacco use and exposure. Discussed risk factor and lifestyle modifications. Patient has been cleared by cardiology for discharge with close outpatient follow-up. Currently no reports of chest pain, shortness of breath, or palpitations. Patient is afebrile. No reports of nausea or vomiting and patient is tolerating diet. Patient will be discharged home today. Guarded prognosis Physical exam: Gen: This is a 66-year-old male who is awake, alert and oriented 3, well- developed, well-nourished, obese HEENT: Head is atraumatic, normocephalic. Pupils equal, round. Sclerae is anicteric. NECK: Supple. No JVD. No lymphadenopathy. No thyromegaly. LUNGS: Diminished breath sounds bilaterally with some scattered rhonchi. No intercostal retractions. HEART: Regular rate and rhythm. No murmur. ABDOMEN: Soft. Bowel sounds are present. No masses. No tenderness. EXTREMITIES: No pedal edema. No calf tenderness. NEUROLOGICAL: Patient is awake, alert and oriented x3. Cranial nerves 2 through 12 are grossly intact. Please refer to medication reconciliation sheet for a list of medications. The impression and plan of care has been dictated by Perla Rivas, Nurse Practitioner as directed. Dr. Xochitl MD I have performed a history and examination and MDM of this patient, discussed the same with the dictator, and agree with the dictator's assessment and plan as written ,documented as a scribe. Based on total visit time, I have performed more than 50% of the visit. Patient Condition at Discharge: Stable Plan - Discharge Summary New Discharge Prescriptions: New Nicotine 21Mg/24Hr Patch [Habitrol] 1 patch TRANSDERM DAILY #30 patch Loperamide [Imodium] 2 mg PO QID PRN #30 cap PRN Reason: Diarrhea Gabapentin [Neurontin] 200 mg PO TID #18 cap Nitroglycerin Sl Tabs [Nitrostat] 0.4 mg SUBLINGUAL Q5M PRN #30 tab PRN Reason: Chest Pain Continue allopurinoL [Zyloprim] 100 mg PO DAILY Aspirin EC [Ecotrin Low Dose] 81 mg PO DAILY tablet. Montelukast [Singulair] 10 mg PO HS amLODIPine [Norvasc] 10 mg PO HS Atorvastatin [Lipitor] 20 mg PO DAILY Terazosin HCl 5 mg PO HS Sotalol [Betapace] 80 mg PO BID #60 tab oxyCODONE HCL/ACETAMINOPHEN [oxyCODONE HCL/ACETAMINOPHEN 7.5-325] 1 tab PO Q6H PRN PRN Reason: Pain Albuterol Nebulized [Ventolin Nebulized] 2.5 mg INHALATION RT-QID PRN PRN Reason: Shortness Of Breath Doxycycline Monohydrate [Monodox] 100 mg PO BID Triamcinolone 0.5% Cream [Kenalog 0.5% Cream] 1 applic TOPICAL BID Ergocalciferol [Vitamin D2 (1250 Mcg = 59022 Iu)] 1,250 mcg PO FR Apixaban [Eliquis] 5 mg PO BID Insulin Detemir [Levemir Flextouch Pen] 20 units SQ HS Budesonide/Formoterol Fumarate [Symbicort 160-4.5 Mcg Inhaler] 2 puff INHALATION RT-BID Albuterol Sulfate [Albuterol Sulfate Hfa] 2 puff PO RT-Q4H PRN PRN Reason: Shortness Of Breath Changed Baclofen 5 mg PO TID #0 Discontinued Spironolactone [Aldactone] 25 mg PO BID Valsartan 320 mg PO DAILY Gabapentin [Neurontin] 600 mg PO TID Discharge Medication List allopurinoL [Zyloprim] 100 mg PO DAILY 08/08/14 [History] Aspirin EC [Ecotrin Low Dose] 81 mg PO DAILY tablet. 08/09/14 [Rx] Atorvastatin [Lipitor] 20 mg PO DAILY 10/21/17 [History] Montelukast [Singulair] 10 mg PO HS 10/21/17 [History] amLODIPine [Norvasc] 10 mg PO HS 10/21/17 [History] Terazosin HCl 5 mg PO HS 02/18/20 [History] Sotalol [Betapace] 80 mg PO BID #60 tab 02/25/20 [Rx] Apixaban [Eliquis] 5 mg PO BID 07/15/20 [History] Insulin Detemir [Levemir Flextouch Pen] 20 units SQ HS 07/15/20 [History] oxyCODONE HCL/ACETAMINOPHEN [oxyCODONE HCL/ACETAMINOPHEN 7.5-325] 1 tab PO Q6H PRN 11/01/20 [History] Albuterol Nebulized [Ventolin Nebulized] 2.5 mg INHALATION RT-QID PRN 03/12/21 [History] Doxycycline Monohydrate [Monodox] 100 mg PO BID 06/18/21 [History] Albuterol Sulfate [Albuterol Sulfate Hfa] 2 puff PO RT-Q4H PRN 02/06/22 [History] Budesonide/Formoterol Fumarate [Symbicort 160-4.5 Mcg Inhaler] 2 puff INHALATION RT-BID 02/06/22 [History] Ergocalciferol [Vitamin D2 (1250 Mcg = 55581 Iu)] 1,250 mcg PO FR 02/06/22 [History] Triamcinolone 0.5% Cream [Kenalog 0.5% Cream] 1 applic TOPICAL BID 02/06/22 [History] Baclofen 5 mg PO TID #0 02/07/22 [Rx] Gabapentin [Neurontin] 200 mg PO TID #18 cap 02/07/22 [Rx] Loperamide [Imodium] 2 mg PO QID PRN #30 cap 02/07/22 [Rx] Nicotine 21Mg/24Hr Patch [Habitrol] 1 patch TRANSDERM DAILY #30 patch 02/07/22 [Rx] Nitroglycerin Sl Tabs [Nitrostat] 0.4 mg SUBLINGUAL Q5M PRN #30 tab 02/07/22 [Rx] Follow up Appointment(s)/Referral(s): Tanesha Long MD [Primary Care Provider] - 1-2 days Patient Instructions/Handouts: Heart Catheterization (DC), After Radial Heart Catheterization (GEN) Activity/Diet/Wound Care/Special Instructions: Activity Limited until follow-up Follow-up with primary care provider on discharge Follow-up with coil repair technician Dr. Hare Continue taking current medications as prescribed Continue to avoid tobacco use Discharge Disposition: HOME SELF-CARE
== END 2022-02-07 17:10 | disposition home or self-care (01) | DRG 287 ==
LOC: EC 00:39 → 6NMEDSUR 02:37 → OBSVTOIN 02-07 08:47
PROVIDERS: ADMIT Internal Medicine; ATTEND Internal Medicine
PROC: 4A023N7 Measurement of Cardiac Sampling and Pressure, Left Heart, Percutaneous Approach (ICD-10-PCS; principal; 2022-02-07 09:30)
PROC: B2111ZZ Fluoroscopy of Multiple Coronary Arteries using Low Osmolar Contrast (ICD-10-PCS; principal; 2022-02-07 09:30)
DX: R07.9 Chest pain, unspecified (principal); N17.9 Acute kidney failure, unspecified; I13.0 Hypertensive heart and chronic kidney disease with heart failure and stage 1 through stage 4 chronic kidney disease, or unspecified chronic kidney disease; I25.82 Chronic total occlusion of coronary artery; E11.22 Type 2 diabetes mellitus with diabetic chronic kidney disease; I50.9 Heart failure, unspecified; I25.10 Atherosclerotic heart disease of native coronary artery without angina pectoris; I48.0 Paroxysmal atrial fibrillation; E86.0 Dehydration; E78.00 Pure hypercholesterolemia, unspecified; J44.9 Chronic obstructive pulmonary disease, unspecified; Z79.4 Long term (current) use of insulin; Z28.310 Unvaccinated for COVID-19; N18.9 Chronic kidney disease, unspecified; I08.1 Rheumatic disorders of both mitral and tricuspid valves; R00.1 Bradycardia, unspecified; M10.9 Gout, unspecified; M19.90 Unspecified osteoarthritis, unspecified site; M54.9 Dorsalgia, unspecified; N42.9 Disorder of prostate, unspecified; L98.9 Disorder of the skin and subcutaneous tissue, unspecified; I25.2 Old myocardial infarction; F17.210 Nicotine dependence, cigarettes, uncomplicated; Z71.6 Tobacco abuse counseling; Z79.01 Long term (current) use of anticoagulants; Z79.82 Long term (current) use of aspirin; Z79.51 Long term (current) use of inhaled steroids; Z79.84 Long term (current) use of oral hypoglycemic drugs; Z79.899 Other long term (current) drug therapy; Z86.711 Personal history of pulmonary embolism; Z86.718 Personal history of other venous thrombosis and embolism; Z87.442 Personal history of urinary calculi; Z88.8 Allergy status to other drugs, medicaments and biological substances
CPT/HCPCS: 36415; 71046; 78452; 80048; 80053; 83036; 83735; 83880; 84484; 85025; 85379; 87324; 93005; 93017; 93306; 93458; 94640; 94760; 96374; 99285

== ENCOUNTER 2022-05-12 03:34 | Emergency (ER) | payer MEDICARE, OTHER ==
[2022-05-12 03:37] VITALS: TEMP 97.4
[2022-05-12] MEDS ORDERED: ALBUTEROL HFA INHALER INHALATION STA (03:47)
[2022-05-12] MEDS ORDERED: methylPREDNISolone SOD SUCCI 125 MG/2 ML VIAL IV STA (03:47)
[2022-05-12] MEDS ORDERED: LORazepam 1 MG TAB PO STA (03:48)
--- NOTE | 2022-05-12 04:00 | ED ---
General Adult HPI - General Chief complaint: Shortness of Breath Stated complaint: SOB Time Seen by Provider: 05/12/22 03:37 Source: patient, RN notes reviewed, old records reviewed Mode of arrival: ambulatory - History of Present Illness Initial comments: Patient is a 67-year-old male who presents emergency Department complaining of shortness of breath. It is more or less intermittent. Denies any associated chest pain. States it is worse when he lays down flat. Does have a history of CHF, A. fib, PE is on Eliquis, COPD. Endorses a very mild nonproductive cough. Denies lower extremity edema. Denies worsening progressive orthopnea. Denies PND. States he thinks it is related to anxiety and possible panic attacks. States he has had them previously. States he was lying down to go to bed at approximately 11 when he started having the shortness of breath. Usually does improve when he sits up and drinks coffee but states it did not improve this time which is why he presents for further evaluation. States he does feel somewhat anxious. Denies any fevers, sick contacts. No other acute complaints at this time. States he is compliant with all medications. - Related Data Home Medications Medication Instructions Recorded Confirmed allopurinoL [Zyloprim] 100 mg PO DAILY 08/08/14 02/06/22 Atorvastatin [Lipitor] 20 mg PO DAILY 10/21/17 02/06/22 Montelukast [Singulair] 10 mg PO HS 10/21/17 02/06/22 amLODIPine [Norvasc] 10 mg PO HS 10/21/17 02/06/22 Terazosin HCl 5 mg PO HS 02/18/20 02/06/22 Apixaban [Eliquis] 5 mg PO BID 07/15/20 02/06/22 Insulin Detemir [Levemir Flextouch 20 units SQ HS 07/15/20 02/06/22 Pen] oxyCODONE HCL/ACETAMINOPHEN 1 tab PO Q6H PRN 11/01/20 02/06/22 [oxyCODONE HCL/ACETAMINOPHEN 7.5-325] Albuterol Nebulized [Ventolin 2.5 mg INHALATION RT-QID PRN 03/12/21 02/06/22 Nebulized] Doxycycline Monohydrate [Monodox] 100 mg PO BID 06/18/21 02/06/22 Albuterol Sulfate [Albuterol 2 puff PO RT-Q4H PRN 02/06/22 02/06/22 Sulfate Hfa] Budesonide/Formoterol Fumarate 2 puff INHALATION RT-BID 02/06/22 02/06/22 [Symbicort 160-4.5 Mcg Inhaler] Ergocalciferol [Vitamin D2 (1250 1,250 mcg PO FR 02/06/22 02/06/22 Mcg = 71318 Iu)] Triamcinolone 0.5% Cream [Kenalog 1 applic TOPICAL BID 02/06/22 02/06/22 0.5% Cream] Previous Rx's Medication Instructions Recorded Aspirin EC [Ecotrin Low Dose] 81 mg PO DAILY tablet. 08/09/14 Sotalol [Betapace] 80 mg PO BID #60 tab 02/25/20 Baclofen 5 mg PO TID #0 02/07/22 Gabapentin [Neurontin] 200 mg PO TID #18 cap 02/07/22 Loperamide [Imodium] 2 mg PO QID PRN #30 cap 02/07/22 Nicotine 21Mg/24Hr Patch [Habitrol] 1 patch TRANSDERM DAILY #30 patch 02/07/22 Nitroglycerin Sl Tabs [Nitrostat] 0.4 mg SUBLINGUAL Q5M PRN #30 tab 02/07/22 LORazepam [Ativan] 1 mg PO DAILY PRN 3 Days #3 tab 05/12/22 predniSONE [Deltasone] 20 mg PO DAILY 5 Days #5 tab 05/12/22 Allergies Allergy/AdvReac Type Severity Reaction Status Date / Time insulin glargine AdvReac Diarrhea Verified 05/12/22 03:38 [From Lantus U-100 Insulin] Review of Systems ROS Statement: Those systems with pertinent positive or pertinent negative responses have been documented in the HPI. Review of Systems: CONST: Denies fever EYES: Denies blurry vision ENT: Denies nasal congestion C/V: Denies Chest pain RESP: Endorses Shortness of breath GI: Denies abdominal pain : Denies dysuria SKIN: Denies rash. MSK: Denies joint pain. NEURO: Denies headache ROS Other: All systems not noted in ROS Statement are negative. Past Medical History Past Medical History: Atrial Fibrillation, COPD, Diabetes Mellitus, Deep Vein Thrombosis (DVT), Hyperlipidemia, Hypertension, Osteoarthritis (OA), Prostate Disorder, Pulmonary Embolus (PE), Renal Disease, Skin Disorder Additional Past Medical History / Comment(s): "small heart attacks", gout, kidney stones. back pain. kidney function 40%, hypokalemia; wound Rt buttock - using sitz baths History of Any Multi-Drug Resistant Organisms: None Reported Past Surgical History: Cholecystectomy, Heart Catheterization, Orthopedic Surgery Additional Past Surgical History / Comment(s): Cholecystectomy with hernia repair , Bilateral cataract surgery, left knee arthroscopy, ORIF left knee open reduction and internal fixation after injury, pain procedures Past Anesthesia/Blood Transfusion Reactions: No Reported Reaction Past Psychological History: No Psychological Hx Reported Smoking Status: Current every day smoker Past Alcohol Use History: None Reported Past Drug Use History: None Reported - Past Family History Father History Unknown: Yes Family Medical History: Cancer Additional Family Medical History / Comment(s): . Mother History Unknown: Yes Family Medical History: Cancer Additional Family Medical History / Comment(s): . Brother(s) Family Medical History: No Reported History Additional Family Medical History / Comment(s): from overdose Sister(s) Family Medical History: No Reported History Additional Family Medical History / Comment(s): Patient has 2 sisters and mother from drug overdose after chronic pain syndrome from low back pain. General Exam - General Exam Comments Initial Comments: General: Appears in no acute distress. HEAD: Normal with no signs of head trauma. EYES: PERRLA, EOMI, conjunctiva normal, no discharge. ENT: Hearing grossly intact, normal oropharynx. RESPIRATORY: Very mild bilateral end expiratory wheezing. No hypoxia. No increased work of breathing. C/V: Regular rate and rhythm. S1 and S2 auscultated, no significant pitting edema, peripheral pulses 2+ and intact throughout ABD: Abd is soft, nontender, nondistended EXT: Normal range of motion, no obvious deformity SKIN: No rashes or lesions observed on exposed skin. NEURO: Alert and Oriented 4. Course Vital Signs 05/12/22 03:35 Temperature 97.4 F L Pulse Rate 50 L Respiratory 19 Rate Blood Pressure 139/67 O2 Sat by Pulse 96 Oximetry Medical Decision Making - Medical Decision Making Was pt. sent in by a medical professional or institution (, PA, MUSIC THEORY PROFESSOR, urgent care, hospital, or care home...) When possible be specific @ -No Did you speak to anyone other than the patient for history (EMS, parent, family, police, friend...)? What history was obtained from this source @ -No Did you review nursing and triage notes (agree or disagree)? Why? @ -I reviewed and agree with nursing and triage notes Were old charts reviewed (outside hosp., previous admission, EMS record, old EKG, old radiological studies, urgent care reports/EKG's, care home records)? Report findings @ -Old charts were reviewed including stress test in January 2022 Differential Diagnosis (chest pain, altered mental status, abdominal pain women, abdominal pain men, vaginal bleeding, weakness, fever, dyspnea, syncope, headache, dizziness, GI bleed, back pain, seizure, CVA, palpatations, mental health, musculoskeletal)? @ -Differential Dyspnea: Coronary syndrome, arrhythmia, tamponade, asthma, COPD, pulmonary embolism, pneumonia, pneumothorax, pulmonary effusion, anaphylaxis, diabetic ketoacidosis, flailed chest, pulmonary contusion, diaphragmatic rupture, anemia, anxiety, neuromuscular, this is not meant to be an all-inclusive list. EKG interpreted by me (3pts min.). @ -As above X-rays interpreted by me (1pt min.). @ -Chest x-ray revealed no obvious acute cardio pulmonary process. CT interpreted by me (1pt min.). @ -None done U/S interpreted by me (1pt. min.). @ -None done What testing was considered but not performed or refused? (CT, X-rays, U/S, labs)? Why? @ -None What meds were considered but not given or refused? Why? @ -None Did you discuss the management of the patient with other professionals (keyanna balbuena i.e. , PA, MUSIC THEORY PROFESSOR, lab, RT, psych nurse, social science professor, plant custodian, teacher, forestry technical officer, insurance case manager)? Give summary @ -No Was smoking cessation discussed for >3mins.? @ -No Was critical care preformed (if so, how long)? @ -No Were there social determinants of health that impacted care today? How? (Homelessness, low income, unemployed, alcoholism, drug addiction, transportati on, low edu. Level, literacy, decrease access to med. care, penitentiary, rehab)? @ -No Was there de-escalation of care discussed even if they declined (Discuss DNR or withdrawal of care, Hospice)? DNR status @ -No What co-morbidities impacted this encounter? (DM, HTN, Smoking, COPD, CAD, Cancer, CVA, ARF, Chemo, Hep., AIDS, mental health diagnosis, sleep apnea, morbid obesity)? @ -A. fib, COPD, CHF, CAD Was patient admitted / discharged? Hospital course, mention meds given and route, prescriptions, significant lab abnormalities, going to OR and other pertinent info. @ -Based on the patient's presentation and physical exam, he is presenting with dyspnea. He believes it is related to anxiety, however has multiple other comorbidities. I'm concerned for possible cardiopulmonary etiology at this time. We will obtain cardiac labs, chest x-ray, infectious swabs. Patient will be treated for his mild COPD exacerbation with IV steroids as well as an inhaler. Patient is bradycardic but this is chronic. Remainder the vital signs are within acceptable limits. He was in agreement this plan. He will be given a small dose of Ativan to see if it improves his anxiety. Patient's EKG shows his chronic bradycardia but no other acute findings. Imaging is unremarkable. Labs are within acceptable limits including an undetectable troponin, a BMP within normal limits. Patient's pelvic, flu, RSV negative. On reevaluation, patient's vital signs remained within acceptable limits. Has no acute complaints at this time. Wheezing has improved. Patient is feeling improved overall. We did discuss his workup. I did offer him admission due to his past medical history, however no clear etiology for his dyspnea that comes and goes. He states he feels comfortable going home at this time will return if he feels a need to be reevaluated. I do believe this is reasonable. Strict return precautions were discussed. Patient has inhalers at home and is r equesting the steroid. I did offer him 3 days of Ativan to see if it helps with the symptoms and he accepted. I will provide the patient with a prescription for prednisone, Ativan. I in structed the patient to follow up with their PCP in the next 1-3 days. I explained that the patient should return to the emergency department if they experience any worsening symptoms. Strict return precautions were discussed with the patient. The patient expressed understanding of these instructions. I answered all questions that the patient had. The patient was discharged home in good condition with their prescriptions and follow up information. Undiagnosed new problem with uncertain prognosis? @ -No Drug Therapy requiring intensive monitoring for toxicity (Heparin, Nitro, Insulin, Cardizem)? @ -No Were any procedures done? @ -No Diagnosis/symptom? @ -COPD Acute, or Chronic, or Acute on Chronic? @ -Acute Uncomplicated (without systemic symptoms) or Complicated (systemic symptoms)? @ -Uncomplicated Side effects of treatment? @ -none Exacerbation, Progression, or Severe Exacerbation] @ -Exacerbation Poses a threat to life or bodily function? @ -no Diagnosis/symptom? @ -Anxiety Acute, or Chronic, or Acute on Chronic? @ -Acute Uncomplicated (without systemic symptoms) or Complicated (systemic symptoms)? @ -uncomplicated Side effects of treatment? @ -none Exacerbation, Progression, or Severe Exacerbation] @ -no Poses a threat to life or bodily function? @ -no Diagnosis/symptom? @ -Bradycardia Acute, or Chronic, or Acute on Chronic? @ -Chronic Uncomplicated (without systemic symptoms) or Complicated (systemic symptoms)? @ -Uncomplicated Side effects of treatment? @ -none Exacerbation, Progression, or Severe Exacerbation] @ -no Poses a threat to life or bodily function? @ -no - Lab Data Result diagrams: 05/12/22 03:43 05/12/22 03:43 Lab Results 05/12/22 05/12/22 05/12/22 Range/Units 03:43 03:43 03:43 WBC 7.9 (3.8-10.6) k/uL RBC 4.50 (4.30-5.90) m/uL Hgb 14.3 (13.0-17.5) gm/dL Hct 41.9 (39.0-53.0) % MCV 93.1 (80.0-100.0) fL MCH 31.8 (25.0-35.0) pg MCHC 34.2 (31.0-37.0) g/dL RDW 13.3 (11.5-15.5) % Plt Count 176 (150-450) k/uL MPV 7.8 Neutrophils % 56 % Lymphocytes % 33 % Monocytes % 7 % Eosinophils % 2 % Basophils % 1 % Neutrophils # 4.4 (1.3-7.7) k/uL Lymphocytes # 2.6 (1.0-4.8) k/uL Monocytes # 0.6 (0-1.0) k/uL Eosinophils # 0.1 (0-0.7) k/uL Basophils # 0.1 (0-0.2) k/uL PT 9.8 (9.0-12.0) sec INR 0.9 (<1.2) APTT 26.3 (22.0-30.0) sec Sodium 136 L (137-145) mmol/L Potassium 4.3 (3.5-5.1) mmol/L Chloride 103 (98-107) mmol/L Carbon Dioxide 24 (22-30) mmol/L Anion Gap 9 mmol/L BUN 34 H (9-20) mg/dL Creatinine 1.22 (0.66-1.25) mg/dL Est GFR (CKD-EPI)AfAm 72 (>60 ml/min/1.73 sqM) Est GFR (CKD-EPI)NonAf 62 (>60 ml/min/1.73 sqM) Glucose 153 H (74-99) mg/dL Calcium 9.4 (8.4-10.2) mg/dL Magnesium 1.9 (1.6-2.3) mg/dL Total Bilirubin 0.5 (0.2-1.3) mg/dL AST 26 (17-59) U/L ALT 22 (4-49) U/L Alkaline Phosphatase 98 (38-126) U/L Troponin I (0.000-0.034) ng/mL NT-Pro-B Natriuret Pep pg/mL Total Protein 6.9 (6.3-8.2) g/dL Albumin 4.1 (3.5-5.0) g/dL Influenza Type A (PCR) (Not Detectd) Influenza Type B (PCR) (Not Detectd) RSV (PCR) (Not Detectd) SARS-CoV-2 (PCR) (Not Detectd) 05/12/22 05/12/22 05/12/22 Range/Units 03:43 03:43 03:56 WBC (3.8-10.6) k/uL RBC (4.30-5.90) m/uL Hgb (13.0-17.5) gm/dL Hct (39.0-53.0) % MCV (80.0-100.0) fL MCH (25.0-35.0) pg MCHC (31.0-37.0) g/dL RDW (11.5-15.5) % Plt Count (150-450) k/uL MPV Neutrophils % % Lymphocytes % % Monocytes % % Eosinophils % % Basophils % % Neutrophils # (1.3-7.7) k/uL Lymphocytes # (1.0-4.8) k/uL Monocytes # (0-1.0) k/uL Eosinophils # (0-0.7) k/uL Basophils # (0-0.2) k/uL PT (9.0-12.0) sec INR (<1.2) APTT (22.0-30.0) sec Sodium (137-145) mmol/L Potassium (3.5-5.1) mmol/L Chloride (98-107) mmol/L Carbon Dioxide (22-30) mmol/L Anion Gap mmol/L BUN (9-20) mg/dL Creatinine (0.66-1.25) mg/dL Est GFR (CKD-EPI)AfAm (>60 ml/min/1.73 sqM) Est GFR (CKD-EPI)NonAf (>60 ml/min/1.73 sqM) Glucose (74-99) mg/dL Calcium (8.4-10.2) mg/dL Magnesium (1.6-2.3) mg/dL Total Bilirubin (0.2-1.3) mg/dL AST (17-59) U/L ALT (4-49) U/L Alkaline Phosphatase (38-126) U/L Troponin I <0.012 (0.000-0.034) ng/mL NT-Pro-B Natriuret Pep 258 pg/mL Total Protein (6.3-8.2) g/dL Albumin (3.5-5.0) g/dL Influenza Type A (PCR) Not Detected (Not Detectd) Influenza Type B (PCR) Not Detected (Not Detectd) RSV (PCR) Not Detected (Not Detectd) SARS-CoV-2 (PCR) Not Detected (Not Detectd) - EKG Data -: EKG Interpreted by Me EKG Comments: 12-lead Electrocardiogram Interpretation Note EKG was reviewed and interpreted by myself. 12-lead ECG performed at 0343 is interpreted by me as revealing sinus bradycardia at a rate of 46 beats per minute. [place] is normal. [place] interval is 159 ms, QRS durations 104 ms, QTc is 395 ms.. [There were no ST or T wave abnormalities to suggest myocardial ischemia or injury]. [R wave progression across the precordium was satisfactory]. [By my interpretation this EKG is non-diagnostic for acute ischemia]. When compared with EKG from 02/06/2022,no significant change. Disposition Clinical Impression: Anxiety, COPD (chronic obstructive pulmonary disease) Disposition: HOME SELF-CARE Condition: Good Instructions (If sedation given, give patient instructions): COPD (Chronic Obstructive Pulmonary Disease) (ED) Prescriptions: LORazepam [Ativan] 1 mg PO DAILY PRN 3 Days #3 tab PRN Reason: Anxiety predniSONE [Deltasone] 20 mg PO DAILY 5 Days #5 tab Is patient prescribed a controlled substance at d/c from ED?: No Referrals: Tanesha Long MD [Primary Care Provider] - 1-2 days Time of Disposition: 05:32
--- NOTE | 2022-05-12 04:14 | XR ---
EXAMINATION TYPE: XR chest 2V DATE OF EXAM: 05/12/2022 COMPARISON: 02/06/2022 HISTORY: Short of breath TECHNIQUE: 2 views FINDINGS: Heart is normal. There is some mild linear density left lung base. There are no hilar kathrine s. No pleural effusion. Bony thorax is intact. There are chest leads. IMPRESSION: Subsegmental atelectasis or scarring left lung base. No change. Normal heart.
[2022-05-12 04:38] LABS: Albumin 4.1 g/dL (3.5-5.0); Calcium 9.4 mg/dL (8.4-10.2); Magnesium 1.9 mg/dL (1.6-2.3); Potassium 4.3 mmol/L (3.5-5.1); Total Bilirubin 0.5 mg/dL (0.2-1.3); Total Protein 6.9 g/dL (6.3-8.2)
[2022-05-12 04:40] LABS: Basophils # (A) 0.1 k/uL (0-0.2); Basophils % (A) 1 %; Eosinophils # (A) 0.1 k/uL (0-0.7); Eosinophils % (A) 2 %; HCT 41.9 % (39.0-53.0); HGB 14.3 gm/dL (13.0-17.5); Lymphocytes # (A) 2.6 k/uL (1.0-4.8); Lymphocytes % (A) 33 %; MCH 31.8 pg (25.0-35.0); MCHC 34.2 g/dL (31.0-37.0); MCV 93.1 fL (80.0-100.0); Mean Platelet Volume 7.8; Monocytes # (A) 0.6 k/uL (0-1.0); Monocytes % (A) 7 %; Neutrophils # (A) 4.4 k/uL (1.3-7.7); Neutrophils % (A) 56 %; Platelet Count 176 k/uL (150-450); RDW 13.3 % (11.5-15.5); WBC 7.9 k/uL (3.8-10.6)
[2022-05-12 04:46] LABS: INR 0.9 (<1.2); Partial Thromboplastin Time 26.3 sec (22.0-30.0); Prothrombin Time 9.8 sec (9.0-12.0)
[2022-05-12 05:58] VITALS: BP 110/48; PULSE 43; RESP 16
== END 2022-05-12 05:49 | disposition home or self-care (01) ==
LOC: EC 03:34
DX: F41.9 Anxiety disorder, unspecified (principal); J44.9 Chronic obstructive pulmonary disease, unspecified; I48.91 Unspecified atrial fibrillation; E11.9 Type 2 diabetes mellitus without complications; I10 Essential (primary) hypertension; E78.5 Hyperlipidemia, unspecified; Z86.711 Personal history of pulmonary embolism; M19.90 Unspecified osteoarthritis, unspecified site; F17.200 Nicotine dependence, unspecified, uncomplicated; Z79.1 Long term (current) use of non-steroidal anti-inflammatories (NSAID); Z79.51 Long term (current) use of inhaled steroids; Z79.01 Long term (current) use of anticoagulants; Z79.899 Other long term (current) drug therapy; Z79.84 Long term (current) use of oral hypoglycemic drugs; Z79.4 Long term (current) use of insulin; Z88.6 Allergy status to analgesic agent; Z20.822 Contact with and (suspected) exposure to COVID-19
CPT/HCPCS: 36415; 94640; 93005; 83880; 80053; 83735; 84484; 85025; 85610; 85730; 87636; 71046; 99285; 96374; J2930

== ENCOUNTER 2022-07-20 00:17 | Emergency (ER) | payer MEDICARE, OTHER ==
[2022-07-20 00:21] VITALS: TEMP 97.8
--- NOTE | 2022-07-20 00:59 | ED ---
SOB HPI - General Chief Complaint: Shortness of Breath Stated Complaint: SOB Time Seen by Provider: 07/20/22 00:42 Source: patient Mode of arrival: wheelchair Limitations: no limitations - History of Present Illness Initial Comments: This patient is a 67-year-old man who presents evaluation for worsening of his underlying breathing. The patient reports that he has been having some shortness of breath for a few hours now. He has not had fevers or chills. No productive cough. No chest pain. No leg pain or swelling. No change in urination or bowel movements. MD Complaint: shortness of breath, cough -: hour(s) Severity scale (1-10): 0 Consistency: constant Improves With: nothing Worsens With: nothing Known History Of: COPD Associated Symptoms: denies other symptoms Treatments Prior to Arrival: none - Related Data Home Medications Medication Instructions Recorded Confirmed allopurinoL [Zyloprim] 100 mg PO DAILY 08/08/14 07/25/22 Atorvastatin [Lipitor] 20 mg PO DAILY 10/21/17 07/25/22 Montelukast [Singulair] 10 mg PO HS 10/21/17 07/25/22 amLODIPine [Norvasc] 10 mg PO HS 10/21/17 07/25/22 Terazosin HCl 5 mg PO HS 02/18/20 07/25/22 Apixaban [Eliquis] 5 mg PO BID 07/15/20 07/25/22 Insulin Detemir [Levemir Flextouch 25 units SQ HS 07/15/20 07/25/22 Pen] oxyCODONE HCL/ACETAMINOPHEN 1 tab PO Q6H PRN 11/01/20 07/25/22 [oxyCODONE HCL/ACETAMINOPHEN 7.5-325] Budesonide/Formoterol Fumarate 2 puff INHALATION RT-BID 02/06/22 07/25/22 [Symbicort 160-4.5 Mcg Inhaler] Ergocalciferol [Vitamin D2 (1250 1,250 mcg PO Q7D 02/06/22 07/25/22 Mcg = 07938 Iu)] Baclofen 10 mg PO TID 07/25/22 07/25/22 LORazepam [Ativan] 0.5 mg PO DAILY PRN 07/25/22 07/25/22 Losartan [Cozaar] 50 mg PO DAILY 07/25/22 07/25/22 Nitroglycerin Sl Tabs [Nitrostat] 0.4 mg SL Q5M PRN 07/25/22 07/25/22 Spironolactone [Aldactone] 50 mg PO DAILY 07/25/22 07/25/22 Tamsulosin HCl [Flomax] 0.4 mg PO DAILY 07/25/22 07/25/22 metOLazone [Zaroxolyn] 2.5 mg PO Q2D 07/25/22 07/25/22 Previous Rx's Medication Instructions Recorded Sotalol [Betapace] 80 mg PO BID #60 tab 02/25/20 Gabapentin [Neurontin] 200 mg PO TID #18 cap 02/07/22 Metoprolol Succinate (ER) [Toprol 50 mg PO DAILY 30 Days #30 tab 07/26/22 XL] Allergies Allergy/AdvReac Type Severity Reaction Status Date / Time insulin glargine AdvReac Diarrhea Verified 07/20/22 00:21 [From Lantus U-100 Insulin] Review of Systems ROS Statement: Those systems with pertinent positive or pertinent negative responses have been documented in the HPI. ROS Other: All systems not noted in ROS Statement are negative. Constitutional: Denies: fever, chills Respiratory: Reports: cough, dyspnea, wheezes. Denies: hemoptysis Cardiovascular: Denies: chest pain, palpitations, orthopnea, edema, syncope Gastrointestinal: Denies: abdominal pain, vomiting, diarrhea, melena, he matochezia Genitourinary: Denies: dysuria, hematuria Musculoskeletal: Denies: back pain Skin: Denies: rash Neurological: Denies: headache, weakness Past Medical History Past Medical History: Atrial Fibrillation, COPD, Diabetes Mellitus, Deep Vein Thrombosis (DVT), Hyperlipidemia, Hypertension, Osteoarthritis (OA), Prostate Disorder, Pulmonary Embolus (PE), Renal Disease, Skin Disorder Additional Past Medical History / Comment(s): "small heart attacks", gout, kidney stones. back pain. kidney function 40%, hypokalemia; wound Rt buttock - using sitz baths History of Any Multi-Drug Resistant Organisms: None Reported Past Surgical History: Cholecystectomy, Heart Catheterization, Orthopedic Surgery Additional Past Surgical History / Comment(s): Cholecystectomy with hernia repair , Bilateral cataract surgery, left knee arthroscopy, ORIF left knee open reduction and internal fixation after injury, pain procedures Past Anesthesia/Blood Transfusion Reactions: No Reported Reaction Past Psychological History: No Psychological Hx Reported Smoking Status: Former smoker Past Alcohol Use History: None Reported Past Drug Use History: None Reported - Past Family History Father History Unknown: Yes Family Medical History: Cancer Additional Family Medical History / Comment(s): . Mother History Unknown: Yes Family Medical History: Cancer Additional Family Medical History / Comment(s): . Brother(s) Family Medical History: No Reported History Additional Family Medical History / Comment(s): from overdose Sister(s) Family Medical History: No Reported History Additional Family Medical History / Comment(s): Patient has 2 sisters and mother from drug overdose after chronic pain syndrome from low back pain. General Exam Limitations: no limitations General appearance: alert, in no apparent distress Head exam: Present: atraumatic, normocephalic Eye exam: Present: normal appearance. Absent: scleral icterus, conjunctival injection Neck exam: Present: normal inspection Respiratory exam: Present: wheezes. Absent: respiratory distress, rales, rhonchi, stridor Cardiovascular Exam: Present: regular rate, normal rhythm, normal heart sounds. Absent: systolic murmur, diastolic murmur, rubs, gallop GI/Abdominal exam: Present: soft. Absent: distended, tenderness, guarding, rebound, rigid, mass Extremities exam: Present: normal inspection, normal capillary refill. Absent: pedal edema, calf tenderness Back exam: Present: normal inspection. Absent: CVA tenderness (R), CVA tenderness (L) Neurological exam: Present: alert Skin exam: Present: warm, dry, intact, normal color. Absent: rash Course Vital Signs 07/20/22 07/20/22 07/20/22 00:18 02:01 02:08 Temperature 97.8 F Pulse Rate 111 H 106 H 104 H Respiratory 24 Rate Blood Pressure 107/71 O2 Sat by Pulse 99 Oximetry 07/20/22 07/20/22 07/20/22 02:36 03:27 03:33 Temperature Pulse Rate 104 H 98 Respiratory 18 Rate Blood Pressure O2 Sat by Pulse Oximetry 07/20/22 07/20/22 04:23 05:25 Temperature Pulse Rate 101 H 101 H Respiratory 18 18 Rate Blood Pressure 119/87 O2 Sat by Pulse 95 98 Oximetry Medical Decision Making - Medical Decision Making This patient is a 67-year-old man here with worsening of his respiratory condition. Patient states it feels similar to previous episodes. The patient had chest x-ray which I interpreted as not showing acute infiltrate, or pneumothorax. The patient did receive prednisone and nebulized treatments. Following this she was feeling better and on reevaluation he felt like he wanted to go home. I discussed appropriate further care and follow-up as well as return parameters. Was pt. sent in by a medical professional or institution (, PA, DATA CENTER OPERATOR, urgent care, hospital, or [facility]...) When possible be specific @ -[No] Did you speak to anyone other than the patient for history (EMS, parent, family, police, friend...)? What history was obtained from this source @ -[No] Did you review nursing and triage notes (agree or disagree)? Why? @ -[I reviewed and agree with nursing and triage notes] Were old charts reviewed (outside hosp., previous admission, EMS record, old EKG, old radiological studies, urgent care reports/EKG's, [facility] records)? Report findings @ -old charts were reviewed] Differential Diagnosis (chest pain, altered mental status, abdominal pain women, abdominal pain men, vaginal bleeding, weakness, fever, dyspnea, syncope, headache, dizziness, GI bleed, back pain, seizure, CVA, palpatations, mental health, musculoskeletal)? @ -[Differential Dyspnea: Coronary syndrome, arrhythmia, tamponade, asthma, COPD, pulmonary embolism, pneumonia, pneumothorax, pulmonary effusion, anaphylaxis, diabetic ketoacidosis, flailed chest, pulmonary contusion, diaphragmatic rupture, anemia, joon romuscular, this is not meant to be an all-inclusive list. EKG interpreted by me (3pts min.). @ -[As above] X-rays interpreted by me (1pt min.). @ -[As above CT interpreted by me (1pt min.). @ -[None done] U/S interpreted by me (1pt. min.). @ -[None done] What testing was considered but not performed or refused? (CT, X-rays, U/S, labs)? Why? @ -[None] What meds were considered but not given or refused? Why? @ -[None] Did you discuss the management of the patient with other professionals (professionals i.e. , PA, DATA CENTER OPERATOR, lab, RT, psych nurse, high school social science teacher, silver solderer, teacher, transport corps officer, porter sample case)? Give summary @ -[No] Was smoking cessation discussed for >3mins.? @ -[No] Was critical care preformed (if so, how long)? @ -[No] Were there social determinants of health that impacted care today? How? (Homelessness, low income, unemployed, alcoholism, drug addiction, transportation, low edu. Level, literacy, decrease access to med. care, correction, rehab)? @ -[No] Was there de-escalation of care discussed even if they declined (Discuss DNR or withdrawal of care, Hospice)? DNR status @ -[No] What co-morbidities impacted this encounter? (DM, HTN, Smoking, COPD, CAD, Cancer, CVA, ARF, Chemo, Hep., AIDS, mental health diagnosis, sleep apnea, morbid obesity)? @ -[COPD, atrial fibrillation Was patient admitted / discharged? Hospital course, mention meds given and route, prescriptions, significant lab abnormalities, going to OR and other pertinent info. @ -[Discharged, with close follow-up, and to return should his symptoms recur Undiagnosed new problem with uncertain prognosis? @ -[No] Drug Therapy requiring intensive monitoring for toxicity (Heparin, Nitro, Insulin, Cardizem)? @ -[No] Were any procedures done? @ -[No] Diagnosis/symptom? @ -[Acute exacerbation of COPD Acute, or Chronic, or Acute on Chronic? @ -[Acute Uncomplicated (without systemic symptoms) or Complicated (systemic symptoms)? @ -[Uncomplicated Side effects of treatment? @ -[No] Exacerbation, Progression, or Severe Exacerbation? @ -[Exacerbation Poses a threat to life or bodily function? How? (Chest pain, [place], [place], pneumonia, PE, COPD, DKA, ARF, appy, cholecystitis, CVA, Diverticulitis, Homicidal, Suicidal, threat to staff... and all critical care pts) @ -[No] - Lab Data Result diagrams: 07/20/22 01:17 07/20/22 01:17 Lab Results 07/20/22 07/20/22 07/20/22 Range/Units 01:17 01:17 01:17 WBC 7.7 (3.8-10.6) k/uL RBC 4.28 L (4.30-5.90) m/uL Hgb 13.6 (13.0-17.5) gm/dL Hct 40.9 (39.0-53.0) % MCV 95.5 (80.0-100.0) fL MCH 31.7 (25.0-35.0) pg MCHC 33.2 (31.0-37.0) g/dL RDW 14.0 (11.5-15.5) % Plt Count 193 (150-450) k/uL MPV 7.9 Neutrophils % 58 % Lymphocytes % 32 % Monocytes % 7 % Eosinophils % 2 % Basophils % 0 % Neutrophils # 4.4 (1.3-7.7) k/uL Lymphocytes # 2.4 (1.0-4.8) k/uL Monocytes # 0.5 (0-1.0) k/uL Eosinophils # 0.1 (0-0.7) k/uL Basophils # 0.0 (0-0.2) k/uL PT 10.0 (9.0-12.0) sec INR 0.9 (<1.2) APTT 24.8 (22.0-30.0) sec Sodium 136 L (137-145) mmol/L Potassium 4.3 (3.5-5.1) mmol/L Chloride 102 (98-107) mmol/L Carbon Dioxide 23 (22-30) mmol/L Anion Gap 11 mmol/L BUN 39 H (9-20) mg/dL Creatinine 1.40 H (0.66-1.25) mg/dL Est GFR (CKD-EPI)AfAm 61 (>60 ml/min/1.73 sqM) Est GFR (CKD-EPI)NonAf 53 (>60 ml/min/1.73 sqM) Glucose 140 H (74-99) mg/dL Plasma Lactic Acid Mani (0.7-2.0) mmol/L Calcium 9.0 (8.4-10.2) mg/dL Total Bilirubin 0.7 (0.2-1.3) mg/dL AST 38 (17-59) U/L ALT 44 (4-49) U/L Alkaline Phosphatase 90 (38-126) U/L Troponin I (0.000-0.034) ng/mL NT-Pro-B Natriuret Pep pg/mL Total Protein 6.4 (6.3-8.2) g/dL Albumin 3.9 (3.5-5.0) g/dL 07/20/22 07/20/22 07/20/22 Range/Units 01:17 01:17 01:17 WBC (3.8-10.6) k/uL RBC (4.30-5.90) m/uL Hgb (13.0-17.5) gm/dL Hct (39.0-53.0) % MCV (80.0-100.0) fL MCH (25.0-35.0) pg MCHC (31.0-37.0) g/dL RDW (11.5-15.5) % Plt Count (150-450) k/uL MPV Neutrophils % % Lymphocytes % % Monocytes % % Eosinophils % % Basophils % % Neutrophils # (1.3-7.7) k/uL Lymphocytes # (1.0-4.8) k/uL Monocytes # (0-1.0) k/uL Eosinophils # (0-0.7) k/uL Basophils # (0-0.2) k/uL PT (9.0-12.0) sec INR (<1.2) APTT (22.0-30.0) sec Sodium (137-145) mmol/L Potassium (3.5-5.1) mmol/L Chloride (98-107) mmol/L Carbon Dioxide (22-30) mmol/L Anion Gap mmol/L BUN (9-20) mg/dL Creatinine (0.66-1.25) mg/dL Est GFR (CKD-EPI)AfAm (>60 ml/min/1.73 sqM) Est GFR (CKD-EPI)NonAf (>60 ml/min/1.73 sqM) Glucose (74-99) mg/dL Plasma Lactic Acid Mani 1.8 (0.7-2.0) mmol/L Calcium (8.4-10.2) mg/dL Total Bilirubin (0.2-1.3) mg/dL AST (17-59) U/L ALT (4-49) U/L Alkaline Phosphatase (38-126) U/L Troponin I <0.012 (0.000-0.034) ng/mL NT-Pro-B Natriuret Pep 715 pg/mL Total Protein (6.3-8.2) g/dL Albumin (3.5-5.0) g/dL - EKG Data EKG shows normal: axis, intervals (Normal), QRS complexes (Low voltage QRS complex, possible old septal infarct.) Rate: tachycardia (Rate 106 bpm) Interpretation: other (Underlying rhythm appears to be atrial fibrillation with a rate) Disposition Clinical Impression: Acute exacerbation of chronic obstructive pulmonary disease Disposition: HOME SELF-CARE Condition: Good Instructions (If sedation given, give patient instructions): COPD (Chronic Obstructive Pulmonary Disease) (ED) Is patient prescribed a controlled substance at d/c from ED?: No Referrals: Tanesha Long MD [Primary Care Provider] - 1-2 days
[2022-07-20] MEDS ORDERED: ALBUTEROL NEBULIZED 2.5 MG/3 ML INHALATION STA ×2 (01:08→02:24)
[2022-07-20 01:41] LABS: Basophils % (A) 0 %; Eosinophils # (A) 0.1 k/uL (0-0.7); Eosinophils % (A) 2 %; HCT 40.9 % (39.0-53.0); HGB 13.6 gm/dL (13.0-17.5); Lymphocytes # (A) 2.4 k/uL (1.0-4.8); Lymphocytes % (A) 32 %; MCH 31.7 pg (25.0-35.0); MCHC 33.2 g/dL (31.0-37.0); MCV 95.5 fL (80.0-100.0); Mean Platelet Volume 7.9; Monocytes # (A) 0.5 k/uL (0-1.0); Monocytes % (A) 7 %; Neutrophils # (A) 4.4 k/uL (1.3-7.7); Neutrophils % (A) 58 %; Platelet Count 193 k/uL (150-450); RBC 4.28 m/uL (4.30-5.90); WBC 7.7 k/uL (3.8-10.6)
[2022-07-20 01:45] LABS: Albumin 3.9 g/dL (3.5-5.0); Potassium 4.3 mmol/L (3.5-5.1); Total Bilirubin 0.7 mg/dL (0.2-1.3); Total Protein 6.4 g/dL (6.3-8.2)
[2022-07-20 01:47] LABS: INR 0.9 (<1.2); Partial Thromboplastin Time 24.8 sec (22.0-30.0)
--- NOTE | 2022-07-20 02:11 | XR ---
EXAM: XR Chest, 2 Views CLINICAL HISTORY: ITS.REASON XR Reason: difficulty breathing TECHNIQUE: Frontal and lateral views of the chest. COMPARISON: XR Chest dated 05/12/22 FINDINGS: Lungs: Mild basilar atelectasis or chronic changes. Similar to the prior. Pleural space: Unremarkable. No pneumothorax. Heart: Unremarkable. No cardiomegaly. Mediastinum: Unremarkable. Bones/joints: Unremarkable. IMPRESSION: Mild basilar atelectasis or chronic changes. Similar to the prior.
[2022-07-20 02:37] VITALS: RESP 18
[2022-07-20] MEDS ORDERED: HYDROcodone/APAP 5-325MG 1 EACH TAB PO STA (02:54)
[2022-07-20] MEDS ORDERED: predniSONE 20 MG TAB PO STA (03:25)
[2022-07-20] MEDS ORDERED: IPRATROPIUM-ALBUTEROL 3 ML NEB INHALATION STA (03:25)
[2022-07-20 04:24] VITALS: BP 119/87; PULSE 101
== END 2022-07-20 05:54 | disposition home or self-care (01) ==
LOC: EC 00:17
DX: J44.1 Chronic obstructive pulmonary disease with (acute) exacerbation (principal); I48.91 Unspecified atrial fibrillation; E11.9 Type 2 diabetes mellitus without complications; E78.5 Hyperlipidemia, unspecified; I10 Essential (primary) hypertension; M19.90 Unspecified osteoarthritis, unspecified site; Z86.711 Personal history of pulmonary embolism; Z87.891 Personal history of nicotine dependence; Z79.01 Long term (current) use of anticoagulants; Z79.51 Long term (current) use of inhaled steroids; Z79.899 Other long term (current) drug therapy; Z79.4 Long term (current) use of insulin; Z79.1 Long term (current) use of non-steroidal anti-inflammatories (NSAID)
CPT/HCPCS: 99285; 36415; 94640 ×2; 93005; 83880; 80053; 83605; 84484; 85025; 85610; 85730; 71046; J7512; 96375

== ENCOUNTER 2022-07-25 01:12 | Observation (INO) | payer MEDICARE, OTHER ==
[2022-07-25] MEDS ORDERED: ASPIRIN 81 MG PO STA (01:35)
[2022-07-25 02:04] LABS: Basophils % (A) 0 %; Eosinophils # (A) 0.1 k/uL (0-0.7); Eosinophils % (A) 1 %; HCT 42.3 % (39.0-53.0); HGB 14.4 gm/dL (13.0-17.5); Lymphocytes # (A) 1.9 k/uL (1.0-4.8); Lymphocytes % (A) 19 %; MCH 32.4 pg (25.0-35.0); MCV 95.3 fL (80.0-100.0); Mean Platelet Volume 7.5; Monocytes # (A) 0.6 k/uL (0-1.0); Monocytes % (A) 6 %; Neutrophils # (A) 7.4 k/uL (1.3-7.7); Neutrophils % (A) 73 %; Platelet Count 207 k/uL (150-450); RBC 4.43 m/uL (4.30-5.90); RDW 14.1 % (11.5-15.5); WBC 10.2 k/uL (3.8-10.6)
[2022-07-25 02:37] LABS: ALT 33 U/L (4-49); African American GFR (CKD) 59 (>60 ml/min/1.73 sqM); Albumin 3.9 g/dL (3.5-5.0); Anion Gap 11 mmol/L; Blood Urea Nitrogen 40 mg/dL (9-20); Calcium 9.1 mg/dL (8.4-10.2); Carbon Dioxide 22 mmol/L (22-30); Chloride 100 mmol/L (98-107); Glucose 155 mg/dL (74-99); Non-African American GFR(CKD) 51 (>60 ml/min/1.73 sqM); Sodium 133 mmol/L (137-145); Total Bilirubin 0.6 mg/dL (0.2-1.3); Total Protein 6.6 g/dL (6.3-8.2)
[2022-07-25 02:42] LABS: AST 30 U/L (17-59); Alkaline Phosphatase 88 U/L (38-126); Magnesium 2.1 mg/dL (1.6-2.3); Potassium 4.4 mmol/L (3.5-5.1)
[2022-07-25 03:04] LABS: INR 0.9 (<1.2)
[2022-07-25 03:11] LABS: Partial Thromboplastin Time 20.5 sec (22.0-30.0)
--- NOTE | 2022-07-25 03:19 | XR ---
EXAM: XR Chest, 2 Views CLINICAL HISTORY: ITS.REASON XR Reason: dysrhythmia TECHNIQUE: Frontal and lateral views of the chest. COMPARISON: No relevant prior studies available. FINDINGS: Lungs: No consolidation or mass. Pleural space: No effusion. Heart: No cardiomegaly. Bones/joints: No acute findings. IMPRESSION: No acute cardiopulmonary process.
[2022-07-25] MEDS ORDERED: NALOXONE 0.4 MG/ML 1 ML VIAL IV PRN (03:36)
--- NOTE | 2022-07-25 03:37 | ED ---
Arrhythmia/Palpitations HPI - General Chief Complaint: Arrhythmia/Palpitations Stated Complaint: Chest Pain, AFIB Time Seen by Provider: 07/25/22 01:32 Source: patient Mode of arrival: ambulatory Limitations: no limitations - History of Present Illness Initial Comments: 67-year-old male with history of atrial fibrillation presenting with chief comp laint of chest discomfort. Patient states that he has been in A. fib RVR for the last 5 days. He was seen by his software validation technician today at [facility] who sent him home and told him to report to the ER with any worsening symptoms. Patient is experiencing palpitations and intermittent chest pain. Admits to shortness of breath with exertion. No cough or URI like symptoms. No fevers or chills. No abdominal pain, nausea, vomiting. - Related Data Home Medications Medication Instructions Recorded Confirmed allopurinoL [Zyloprim] 100 mg PO DAILY 08/08/14 02/06/22 Atorvastatin [Lipitor] 20 mg PO DAILY 10/21/17 02/06/22 Montelukast [Singulair] 10 mg PO HS 10/21/17 02/06/22 amLODIPine [Norvasc] 10 mg PO HS 10/21/17 02/06/22 Terazosin HCl 5 mg PO HS 02/18/20 02/06/22 Apixaban [Eliquis] 5 mg PO BID 07/15/20 02/06/22 Insulin Detemir [Levemir Flextouch 20 units SQ HS 07/15/20 02/06/22 Pen] oxyCODONE HCL/ACETAMINOPHEN 1 tab PO Q6H PRN 11/01/20 02/06/22 [oxyCODONE HCL/ACETAMINOPHEN 7.5-325] Albuterol Nebulized [Ventolin 2.5 mg INHALATION RT-QID PRN 03/12/21 02/06/22 Nebulized] Doxycycline Monohydrate [Monodox] 100 mg PO BID 06/18/21 02/06/22 Albuterol Sulfate [Albuterol 2 puff PO RT-Q4H PRN 02/06/22 02/06/22 Sulfate Hfa] Budesonide/Formoterol Fumarate 2 puff INHALATION RT-BID 02/06/22 02/06/22 [Symbicort 160-4.5 Mcg Inhaler] Ergocalciferol [Vitamin D2 (1250 1,250 mcg PO FR 02/06/22 02/06/22 Mcg = 39062 Iu)] Triamcinolone 0.5% Cream [Kenalog 1 applic TOPICAL BID 02/06/22 02/06/22 0.5% Cream] Previous Rx's Medication Instructions Recorded Aspirin EC [Ecotrin Low Dose] 81 mg PO DAILY tablet. 08/09/14 Sotalol [Betapace] 80 mg PO BID #60 tab 02/25/20 Baclofen 5 mg PO TID #0 02/07/22 Gabapentin [Neurontin] 200 mg PO TID #18 cap 02/07/22 Loperamide [Imodium] 2 mg PO QID PRN #30 cap 02/07/22 Nicotine 21Mg/24Hr Patch [Habitrol] 1 patch TRANSDERM DAILY #30 patch 02/07/22 Nitroglycerin Sl Tabs [Nitrostat] 0.4 mg SUBLINGUAL Q5M PRN #30 tab 02/07/22 LORazepam [Ativan] 1 mg PO DAILY PRN 3 Days #3 tab 05/12/22 predniSONE [Deltasone] 20 mg PO DAILY 5 Days #5 tab 05/12/22 predniSONE [Deltasone] 20 mg PO BID #8 tab 07/20/22 Allergies Allergy/AdvReac Type Severity Reaction Status Date / Time insulin glargine AdvReac Diarrhea Verified 07/20/22 00:21 [From Lantus U-100 Insulin] Review of Systems ROS Statement: Those systems with pertinent positive or pertinent negative responses have been documented in the HPI. ROS Other: All systems not noted in ROS Statement are negative. Past Medical History Past Medical History: Atrial Fibrillation, COPD, Diabetes Mellitus, Deep Vein Thrombosis (DVT), Hyperlipidemia, Hypertension, Osteoarthritis (OA), Prostate Disorder, Pulmonary Embolus (PE), Renal Disease, Skin Disorder Additional Past Medical History / Comment(s): "small heart attacks", gout, kidney stones. back pain. kidney function 40%, hypokalemia; wound Rt buttock - using sitz baths History of Any Multi-Drug Resistant Organisms: None Reported Past Surgical History: Cholecystectomy, Heart Catheterization, Orthopedic Surgery Additional Past Surgical History / Comment(s): Cholecystectomy with hernia repair , Bilateral cataract surgery, left knee arthroscopy, ORIF left knee open reduction and internal fixation after injury, pain procedures Past Anesthesia/Blood Transfusion Reactions: No Reported Reaction Past Psychological History: No Psychological Hx Reported Smoking Status: Former smoker Past Alcohol Use History: None Reported Past Drug Use History: None Reported - Past Family History Father History Unknown: Yes Family Medical History: Cancer Additional Family Medical History / Comment(s): . Mother History Unknown: Yes Family Medical History: Cancer Additional Family Medical History / Comment(s): . Brother(s) Family Medical History: No Reported History Additional Family Medical History / Comment(s): from overdose Sister(s) Family Medical History: No Reported History Additional Family Medical History / Comment(s): Patient has 2 sisters and mother from drug overdose after chronic pain syndrome from low back pain. General Exam Limitations: no limitations General appearance: alert, in no apparent distress Head exam: Present: atraumatic, normocephalic, normal inspection Eye exam: Present: normal appearance, EOMI. Absent: scleral icterus, periorbital swelling Neck exam: Present: normal inspection, full ROM Respiratory exam: Present: normal lung sounds bilaterally. Absent: respiratory distress, wheezes, rales, rhonchi, stridor Cardiovascular Exam: Present: tachycardia, irregular rhythm, normal heart sounds. Absent: systolic murmur, diastolic murmur, rubs, gallop, clicks Neurological exam: Present: alert, oriented X3, CN II-XII intact Psychiatric exam: Present: normal affect, normal mood Skin exam: Present: warm, dry, intact, normal color. Absent: rash Course Vital Signs 07/25/22 07/25/22 07/25/22 01:17 01:47 02:10 Temperature 98.1 F Pulse Rate 114 H 107 H 107 H Respiratory 18 16 Rate Blood Pressure 114/82 110/74 O2 Sat by Pulse 97 98 Oximetry 07/25/22 07/25/22 07/25/22 02:30 03:00 03:30 Temperature Pulse Rate 112 H 98 101 H Respiratory Rate Blood Pressure O2 Sat by Pulse Oximetry 07/25/22 07/25/22 07/25/22 04:00 04:10 04:26 Temperature Pulse Rate 113 H 115 H 106 H Respiratory 16 Rate Blood Pressure 121/97 O2 Sat by Pulse 99 Oximetry EKG Findings - EKG Comments: EKG Findings:: Atrial fibrillation with RVR. Ventricular rate 112. QRS 96. QT 366. QTC 499. Medical Decision Making - Medical Decision Making Was pt. sent in by a medical professional or institution (, JIMMIE, SERVICE DELIVERY ANALYST, urgent care, hospital, or custodial...) When possible be specific @ -No Did you speak to anyone other than the patient for history (EMS, parent, family, police, friend...)? What history was obtained from this source @ -No Did you review nursing and triage notes (agree or disagree)? Why? @ -I reviewed and agree with nursing and triage notes Were old charts reviewed (outside hosp., previous admission, EMS record, old EKG, old radiological studies, urgent care reports/EKG's, custodial records)? Report findings @ -No old charts were reviewed Differential Diagnosis (chest pain, altered mental status, abdominal pain women, abdominal pain men, vaginal bleeding, weakness, fever, dyspnea, syncope, headache, dizziness, GI bleed, back pain, seizure, CVA, palpatations, mental health, musculoskeletal)? @ -Differential Palpitations Ventricular arrhythmias, atrial arrhythmias, myocardial infarction, anemia, thyrotoxicosis, electrolyte imbalance, hypokalemia, pulmonary embolism, pulmonary disease, drugs, alcohol, anxiety, stress.... This is not meant to be an all-inclusive list. EKG interpreted by me (3pts min.). @ -As above X-rays interpreted by me (1pt min.). @ -Chest X-ray shows no acute process CT interpreted by me (1pt min.). @ -None done U/S interpreted by me (1pt. min.). @ -None done What testing was considered but not performed or refused? (CT, X-rays, U/S, labs)? Why? @ -None What meds were considered but not given or refused? Why? @ -None Did you discuss the management of the patient with other professionals (professionals i.e. , JIMMIE, SERVICE DELIVERY ANALYST, lab, RT, psych nurse, social media designer, media executive, teacher, campus security officer, top case assembler)? Give summary @ -My attending spoke with [facility] hospitalist group accepted admission Was smoking cessation discussed for >3mins.? @ -No Was critical care preformed (if so, how long)? @ -No Were there social determinants of health that impacted care today? How? (Homelessness, low income, unemployed, alcoholism, drug addiction, transportation, low edu. Level, literacy, decrease access to med. care, fdc, rehab)? @ -No Was there de-escalation of care discussed even if they declined (Discuss DNR or withdrawal of care, Hospice)? DNR status @ -No What co-morbidities impacted this encounter? (DM, HTN, Smoking, COPD, CAD, Cancer, CVA, ARF, Chemo, Hep., AIDS, mental health diagnosis, sleep apnea, m orbid obesity)? @ -A. fib, diabetes, hypertension, hyperlipidemia Was patient admitted / discharged? Hospital course, mention meds given and route, prescriptions, significant lab abnormalities, going to OR and other pertinent info. @ -67-year-old male presenting with chief complaint of palpitations and intermittent chest pain. History of atrial fibrillation. EKG shows atrial fibrillation with RVR. Patient's rate is maintained in the 110s. Troponin is negative. Chest x-ray shows no acute process. Patient will be admitted for chest pain. I attending spoke with [facility] hospitalist group accepted admission. Patient is agreeable with this plan. I discussed this case my attending Dr. Tran. Undiagnosed new problem with uncertain prognosis? @ -No Drug Therapy requiring intensive monitoring for toxicity (Heparin, Nitro, Insulin, Cardizem)? @ -No Were any procedures done? @ -No Diagnosis/symptom? @ -chest pain Acute, or Chronic, or Acute on Chronic? @ -Acute Uncomplicated (without systemic symptoms) or Complicated (systemic symptoms)? @ -Complicated Side effects of treatment? @ -No Exacerbation, Progression, or Severe Exacerbation? @ -No Poses a threat to life or bodily function? How? (Chest pain, USA, SC, pneumonia, PE, COPD, DKA, ARF, appy, cholecystitis, CVA, Diverticulitis, Homicidal, S uicidal, threat to staff... and all critical care pts) Yes Diagnosis/symptom? @Atrial fibrillation Acute, or Chronic, or Acute on Chronic? @Acute on chronic Uncomplicated (without systemic symptoms) or Complicated (systemic symptoms)? @Complicated Side effects of treatment? @ none Exacerbation, Progression, or Severe Exacerbation] @ no Poses a threat to life or bodily function? @Yes - Lab Data Result diagrams: 07/25/22 01:51 07/25/22 01:51 Lab Results 07/25/22 07/25/22 07/25/22 Range/Units 01:51 01:51 01:51 WBC 10.2 (3.8-10.6) k/uL RBC 4.43 (4.30-5.90) m/uL Hgb 14.4 (13.0-17.5) gm/dL Hct 42.3 (39.0-53.0) % MCV 95.3 (80.0-100.0) fL MCH 32.4 (25.0-35.0) pg MCHC 34.0 (31.0-37.0) g/dL RDW 14.1 (11.5-15.5) % Plt Count 207 (150-450) k/uL MPV 7.5 Neutrophils % 73 % Lymphocytes % 19 % Monocytes % 6 % Eosinophils % 1 % Basophils % 0 % Neutrophils # 7.4 (1.3-7.7) k/uL Lymphocytes # 1.9 (1.0-4.8) k/uL Monocytes # 0.6 (0-1.0) k/uL Eosinophils # 0.1 (0-0.7) k/uL Basophils # 0.0 (0-0.2) k/uL PT 10.0 (9.0-12.0) sec INR 0.9 (<1.2) APTT 20.5 L (22.0-30.0) sec Sodium 133 L (137-145) mmol/L Potassium 4.4 (3.5-5.1) mmol/L Chloride 100 (98-107) mmol/L Carbon Dioxide 22 (22-30) mmol/L Anion Gap 11 mmol/L BUN 40 H (9-20) mg/dL Creatinine 1.43 H (0.66-1.25) mg/dL Est GFR (CKD-EPI)AfAm 59 (>60 ml/min/1.73 sqM) Est GFR (CKD-EPI)NonAf 51 (>60 ml/min/1.73 sqM) Glucose 155 H (74-99) mg/dL Calcium 9.1 (8.4-10.2) mg/dL Magnesium 2.1 (1.6-2.3) mg/dL Total Bilirubin 0.6 (0.2-1.3) mg/dL AST 30 (17-59) U/L ALT 33 (4-49) U/L Alkaline Phosphatase 88 (38-126) U/L Troponin I (0.000-0.034) ng/mL Total Protein 6.6 (6.3-8.2) g/dL Albumin 3.9 (3.5-5.0) g/dL 07/25/22 Range/Units 01:51 WBC (3.8-10.6) k/uL RBC (4.30-5.90) m/uL Hgb (13.0-17.5) gm/dL Hct (39.0-53.0) % MCV (80.0-100.0) fL MCH (25.0-35.0) pg MCHC (31.0-37.0) g/dL RDW (11.5-15.5) % Plt Count (150-450) k/uL MPV Neutrophils % % Lymphocytes % % Monocytes % % Eosinophils % % Basophils % % Neutrophils # (1.3-7.7) k/uL Lymphocytes # (1.0-4.8) k/uL Monocytes # (0-1.0) k/uL Eosinophils # (0-0.7) k/uL Basophils # (0-0.2) k/uL PT (9.0-12.0) sec INR (<1.2) APTT (22.0-30.0) sec Sodium (137-145) mmol/L Potassium (3.5-5.1) mmol/L Chloride (98-107) mmol/L Carbon Dioxide (22-30) mmol/L Anion Gap mmol/L BUN (9-20) mg/dL Creatinine (0.66-1.25) mg/dL Est GFR (CKD-EPI)AfAm (>60 ml/min/1.73 sqM) Est GFR (CKD-EPI)NonAf (>60 ml/min/1.73 sqM) Glucose (74-99) mg/dL Calcium (8.4-10.2) mg/dL Magnesium (1.6-2.3) mg/dL Total Bilirubin (0.2-1.3) mg/dL AST (17-59) U/L ALT (4-49) U/L Alkaline Phosphatase (38-126) U/L Troponin I <0.012 (0.000-0.034) ng/mL Total Protein (6.3-8.2) g/dL Albumin (3.5-5.0) g/dL Disposition Clinical Impression: Chest pain, Atrial fibrillation Disposition: ADMITTED IP TO THIS HOSP Condition: Fair Time of Disposition: 03:37
[2022-07-25] MEDS ORDERED: LORazepam 1 MG TAB PO PRN (03:51)
[2022-07-25] MEDS ORDERED: NITROGLYCERIN SL TABS 0.4 MG TAB SUBLINGUAL PRN ×2 (03:53→09:45)
[2022-07-25 07:58] LABS: Glucose,Whole Blood 195 mg/dL (70-110)
[2022-07-25] MEDS: GABAPENTIN 100 MG CAP PO SCH ×3 (08:15→20:50)
[2022-07-25] MEDS: SOTALOL 80 MG TAB PO SCH ×2 (08:15→21:02)
[2022-07-25] MEDS: ATORVASTATIN 20 MG TAB PO SCH (08:15)
[2022-07-25] MEDS: NICOTINE 21MG/24HR PATCH TRANSDERM SCH (08:16)
[2022-07-25] MEDS ORDERED: METOPROLOL SUCCINATE (ER) 25 MG TAB.ER.24H PO SCH (10:30)
[2022-07-25] MEDS: oxyCODONE-APAP 7.5-325MG 1 EACH TAB PO PRN ×3 (10:38→23:06)
[2022-07-25] MEDS: predniSONE 20 MG TAB PO SCH ×2 (10:38→20:50)
[2022-07-25] MEDS: APIXABAN 5 MG TAB PO SCH ×2 (10:38→20:50)
[2022-07-25] MEDS: TAMSULOSIN 0.4 MG CAP.ER.24H PO SCH (10:38)
[2022-07-25] MEDS: BACLOFEN 10 MG TAB PO SCH ×3 (10:38→20:50)
--- NOTE | 2022-07-25 10:43 | P.CRDCN ---
History of Present Illness History of present illness: HISTORY OF PRESENT ILLNESS: This is a 67-year-old male with a past medical history significant for coronary artery disease, atrial fibrillation, hypertension, hyperlipidemia, diabetes, pulmonary embolism, and COPD. Patient follows with a dry yard worker in [place], Dr. Hare. We have been asked to see the patient in consultation for chest pain. Patient examined at the bedside. Patient states that he saw his dry yard worker yesterday and had complaints of his heart racing and shortness of breath. He states that he recently had a cardioversion in January 2022. He was started on digoxin yesterday per his dry yard worker and was scheduled to see an corporate financial analyst on an outpatient basis. He was told by his dry yard worker of his symptoms got worse to come to the emergency room. The patient states that he started having chest pain yesterday which felt like a dull ache but occasionally would feel like a squeezing sensation. He states it was worse yesterday when he was doing laundry. The patient was found to be in atrial fibrillation with mild RVR. He currently denies chest pain at the time of examination. * EKG reveals atrial fibrillation with mild RVR. No signs of acute ischemia * Chest xray negative for acute process * Laboratory data: WBC 10.2. Hemoglobin 14.4. Platelet count 207. Sodium 133. Potassium 4.4. BUN 40. Creatinine 1.43. Troponin negative 2. * Current home cardiac medications include Lipitor 20 mg daily, losartan 50 mg daily, sotalol 80 mg twice a day, Aldactone 50 mg daily, amlodipine 10 mg at night, Zaroxolyn 2.5 mg every 48 hours, and Eliquis 5mg BID * Most recent echocardiogram obtained in January 2022 revealed ejection fraction 55-60%, mild MR * Cardiac catheterization history: January 2022 revealing chronic total occlusion of the RCA which fills via ipsilateral and contralateral collaterals. [id number] nonobstructive disease involving the left coronary system. Normal left-sided filling pressures. REVIEW OF SYSTEMS: At the time of my exam: CONSTITUTIONAL: Denies fever or chills. HEENT: Denies blurred vision, vision changes, or eye pain. Denies hemoptysis CARDIOVASCULAR: Denies chest pain. Denies orthopnea. Denies PND. Denies palpitations RESPIRATORY: Denies shortness of breath. GASTROINTESTINAL: Denies abdominal pain. Denies nausea or vomiting. HEMATOLOGIC: Denies bleeding disorders. GENITOURINARY: Denies any blood in urine. SKIN: Denies pruitis. Denies rash. PHYSICAL EXAM: VITAL SIGNS: Reviewed. GENERAL: Well-developed in no acute distress. HEENT: Head is normocephalic. Pupils are equal, round. Sclerae anicteric. Mucous membranes of the mouth are moist. Neck supple. No JVD or thyromegaly LUNGS: Respirations even and unlabored. Lungs essentially clear to auscultation bilaterally. HEART: Tachycardic. Irregular rate and rhythm. S1 and S2 heard. ABDOMEN: Soft. Nondistended. Nontender. EXTREMITIES: Normal range of motion. No clubbing or cyanosis. Peripheral pulses intact. No lower extremity edema NEUROLOGIC: Awake and alert. Oriented x 3. ASSESSMENT: Persistent atrial fibrillation with mild RVR History of cardioversion, January 2022 Chest pain, troponins negative 2, may be secondary to A. fib with mild RVR Coronary artery disease Hypertension Hyperlipidemia Diabetes History of pulmonary embolism COPD PLAN: No need to repeat echocardiogram Continue home cardiac medications Add metoprolol succinate 25 mg daily Avoid amiodarone as patient is being evaluated on an outpatient basis for possible ablation Continue telemetry monitoring Further recommendations pending patient's course Nurse practitioner note has been reviewed by physician. Signing provider agrees with the documented findings, assessment, and plan of care. Past Medical History Past Medical History: Atrial Fibrillation, COPD, Diabetes Mellitus, Deep Vein Thrombosis (DVT), Hyperlipidemia, Hypertension, Osteoarthritis (OA), Prostate Disorder, Pulmonary Embolus (PE), Renal Disease, Skin Disorder Additional Past Medical History / Comment(s): "small heart attacks", gout, kidney stones. back pain. kidney function 40%, hypokalemia; wound Rt buttock - using sitz baths History of Any Multi-Drug Resistant Organisms: None Reported Past Surgical History: Cholecystectomy, Heart Catheterization, Orthopedic Surgery Additional Past Surgical History / Comment(s): Cholecystectomy with hernia repair , Bilateral cataract surgery, left knee arthroscopy, ORIF left knee open reduction and internal fixation after injury, pain procedures Past Anesthesia/Blood Transfusion Reactions: No Reported Reaction Past Psychological History: No Psychological Hx Reported Smoking Status: Former smoker Past Alcohol Use History: None Reported Past Drug Use History: None Reported - Past Family History Father History Unknown: Yes Family Medical History: Cancer Additional Family Medical History / Comment(s): . Mother History Unknown: Yes Family Medical History: Cancer Additional Family Medical History / Comment(s): . Brother(s) Family Medical History: No Reported History Additional Family Medical History / Comment(s): from overdose Sister(s) Family Medical History: No Reported History Additional Family Medical History / Comment(s): Patient has 2 sisters and mother from drug overdose after chronic pain syndrome from low back pain. Medications and Allergies Home Medications Medication Instructions Recorded Confirmed Type allopurinoL [Zyloprim] 100 mg PO DAILY 08/08/14 07/25/22 History Atorvastatin [Lipitor] 20 mg PO DAILY 10/21/17 07/25/22 History Montelukast [Singulair] 10 mg PO HS 10/21/17 07/25/22 History amLODIPine [Norvasc] 10 mg PO HS 10/21/17 07/25/22 History Terazosin HCl 5 mg PO HS 02/18/20 07/25/22 History Sotalol [Betapace] 80 mg PO BID #60 tab 02/25/20 07/25/22 Rx Apixaban [Eliquis] 5 mg PO BID 07/15/20 07/25/22 History Insulin Detemir [Levemir Flextouch 25 units SQ HS 07/15/20 07/25/22 History Pen] oxyCODONE HCL/ACETAMINOPHEN 1 tab PO Q6H PRN 11/01/20 07/25/22 History [oxyCODONE HCL/ACETAMINOPHEN 7.5-325] Doxycycline Monohydrate [Monodox] 100 mg PO BID 06/18/21 07/25/22 History Budesonide/Formoterol Fumarate 2 puff INHALATION RT-BID 02/06/22 07/25/22 History [Symbicort 160-4.5 Mcg Inhaler] Ergocalciferol [Vitamin D2 (1250 1,250 mcg PO Q7D 02/06/22 07/25/22 History Mcg = 20749 Iu)] Gabapentin [Neurontin] 200 mg PO TID #18 cap 02/07/22 07/25/22 Rx predniSONE [Deltasone] 20 mg PO BID #8 tab 07/20/22 07/25/22 Rx Baclofen 10 mg PO TID 07/25/22 07/25/22 History LORazepam [Ativan] 0.5 mg PO DAILY PRN 07/25/22 07/25/22 History Losartan [Cozaar] 50 mg PO DAILY 07/25/22 07/25/22 History Nitroglycerin Sl Tabs [Nitrostat] 0.4 mg SL Q5M PRN 07/25/22 07/25/22 History Spironolactone [Aldactone] 50 mg PO DAILY 07/25/22 07/25/22 History Tamsulosin HCl [Flomax] 0.4 mg PO DAILY 07/25/22 07/25/22 History metOLazone [Zaroxolyn] 2.5 mg PO Q2D 07/25/22 07/25/22 History Allergies Allergy/AdvReac Type Severity Reaction Status Date / Time insulin glargine AdvReac Diarrhea Verified 07/20/22 00:21 [From Lantus U-100 Insulin] Physical Exam Vitals: Vital Signs Temp Pulse Resp BP Pulse Ox 07/25/22 09:00 102 H 18 106/83 99 07/25/22 07:52 18 07/25/22 07:45 104 H 18 108/89 98 07/25/22 06:44 97.7 F 104 H 16 111/83 97 07/25/22 06:13 95 16 98 07/25/22 05:00 104 H 16 105/67 96 07/25/22 04:26 106 H 07/25/22 04:10 115 H 16 121/97 99 07/25/22 04:00 113 H 07/25/22 03:30 101 H 07/25/22 03:00 98 07/25/22 02:30 112 H 07/25/22 02:10 107 H 16 110/74 98 07/25/22 01:47 107 H 07/25/22 01:17 98.1 F 114 H 18 114/82 97 Intake and Output 07/24/22 07/25/22 07/25/22 22:59 06:59 14:59 Other: Weight 111.13 kg Results 07/25/22 01:51 07/25/22 01:51 Cardiac Enzymes 07/25/22 07/25/22 07/25/22 Range/Units 01:51 01:51 05:58 AST 30 (17-59) U/L Troponin I <0.012 <0.012 (0.000-0.034) ng/mL Coagulation 07/25/22 Range/Units 01:51 PT 10.0 (9.0-12.0) sec APTT 20.5 L (22.0-30.0) sec CBC 07/25/22 Range/Units 01:51 WBC 10.2 (3.8-10.6) k/uL RBC 4.43 (4.30-5.90) m/uL Hgb 14.4 (13.0-17.5) gm/dL Hct 42.3 (39.0-53.0) % Plt Count 207 (150-450) k/uL Comprehensive Metabolic Panel 07/25/22 Range/Units 01:51 Sodium 133 L (137-145) mmol/L Potassium 4.4 (3.5-5.1) mmol/L Chloride 100 (98-107) mmol/L Carbon Dioxide 22 (22-30) mmol/L BUN 40 H (9-20) mg/dL Creatinine 1.43 H (0.66-1.25) mg/dL Glucose 155 H (74-99) mg/dL Calcium 9.1 (8.4-10.2) mg/dL AST 30 (17-59) U/L ALT 33 (4-49) U/L Alkaline Phosphatase 88 (38-126) U/L Total Protein 6.6 (6.3-8.2) g/dL Albumin 3.9 (3.5-5.0) g/dL Current Medications Generic Name Dose Route Start Last Admin Trade Name Freq PRN Reason Stop Dose Admin Amlodipine Besylate 10 mg 07/25/22 21:00 Amlodipine 10 Mg Tab PO HS [facility] Apixaban 5 mg 07/25/22 10:00 Apixaban 5 Mg Tab PO BID [facility] Protocol Atorvastatin Calcium 20 mg 07/25/22 09:00 07/25/22 08:15 Atorvastatin 20 Mg Tab PO 20 mg DAILY [facility] Administration Baclofen 10 mg 07/25/22 09:45 Baclofen 10 Mg Tab PO TID [facility] Budesonide/Formoterol Fumarate 2 puff 07/25/22 20:00 Symbicort 160-4.5 Mcg Inhaler INHALATION RT-BID [facility] Doxazosin Mesylate 4 mg 07/25/22 21:00 Doxazosin 4 Mg Tab PO HS JOSE Gabapentin 200 mg 07/25/22 09:00 07/25/22 08:15 Gabapentin 100 Mg Cap PO 200 mg TID JOSE Administration Insulin Detemir 20 unit 07/25/22 21:00 Insulin Detemir (Levemir) 100 Unit/Ml Syr SQ HS JOSE Lorazepam 1 mg 07/25/22 03:51 Lorazepam 1 Mg Tab PO DAILY PRN Anxiety Montelukast Sodium 10 mg 07/25/22 21:00 Montelukast 10 Mg Tab PO HS JOSE Naloxone HCl 0.2 mg 07/25/22 03:36 Naloxone 0.4 Mg/Ml 1 Ml Vial IV Q2M PRN Opioid Reversal Nicotine 1 patch 07/25/22 09:00 07/25/22 08:16 Nicotine 21mg/24hr Patch TRANSDERM Not Given DAILY [facility] Nitroglycerin 0.4 mg 07/25/22 03:53 Nitroglycerin Sl Tabs 0.4 Mg Tab SUBLINGUAL Q10M PRN Chest Pain Nitroglycerin 0.4 mg 07/25/22 09:45 Nitroglycerin Sl Tabs 0.4 Mg Tab SUBLINGUAL Q5M PRN Chest Pain Oxycodone/Acetaminophen 1 each 07/25/22 03:51 Oxycodone-Apap 7.5-325mg 1 Each Tab PO Q6H PRN Pain Prednisone 20 mg 07/25/22 10:00 Prednisone 20 Mg Tab PO BID JOSE Sotalol HCl 80 mg 07/25/22 09:00 07/25/22 08:15 Sotalol 80 Mg Tab PO 80 mg BID JOSE Administration Tamsulosin HCl 0.4 mg 07/25/22 10:00 Tamsulosin 0.4 Mg Cap.Er.24h PO DAILY [facility] Intake and Output 07/24/22 07/25/22 07/25/22 22:59 06:59 14:59 Other: Weight 111.13 kg 07/25/22 01:51 07/25/22 01:51
[2022-07-25 12:14] LABS: Glucose,Whole Blood 176 mg/dL (70-110)
--- NOTE | 2022-07-25 13:48 | P.HPIM ---
History of Present Illness H&P Date: 07/25/22 Chief Complaint: Shortness of breath, chest pain * 67-year-old gentleman with past medical history significant for atrial fibrillation, coronary artery disease, hypertension, hyperlipidemia history of COPD, pulmonary embolism, diabetes mellitus presented to the [facility] with complaints of chest pain. Patient also complained of associated shortness of breath * Workup initiated including EKG which showed atrial fibrillation with elevated heart rate no ST segment changes were noted * Chest x-ray obtained on admission was negative for acute intrathoracic process * Blood work obtained showed normal white cell count improved Lovenox 14.4, platelet of 207, serum chemistry showed sodium 133 potassium 4.4, creatinine 1.43 * Serial troponins obtained which were negative * Consultation was obtained from cardiology and patient placed in observation for chest pain workup * Per chart review patient had cardiac catheterization done in January 2022 which showed chronic total occlusion of RCA, [id number] nonobstructive disease in the left coronary system was noted as well * At the time of her evaluation patient denies chest pain he does complain of chronic pain in general Review of Systems REVIEW OF SYSTEMS: Chest pain, shortness of breath CONSTITUTIONAL: No fever, no malaise, no fatigue. HEENT: No recent visual problems or hearing problems. Denied any sore throat. CARDIOVASCULAR: No chest pain, orthopnea, PND, no palpitations, no syncope. PULMONARY: No shortness of breath, no cough, no hemoptysis. GASTROINTESTINAL: No diarrhea, no nausea, no vomiting, no abdominal pain. NEUROLOGICAL: No headaches, no weakness, no numbness. HEMATOLOGICAL: Denies any bleeding or petechiae. GENITOURINARY: Denies any burning micturition, frequency, or urgency. MUSCULOSKELETAL/RHEUMATOLOGICAL: Denies any joint pain, swelling, or any muscle pain. ENDOCRINE: Denies any polyuria or polydipsia. Past Medical History Past Medical History: Atrial Fibrillation, COPD, Diabetes Mellitus, Deep Vein Thrombosis (DVT), Hyperlipidemia, Hypertension, Osteoarthritis (OA), Prostate Disorder, Pulmonary Embolus (PE), Renal Disease, Skin Disorder Additional Past Medical History / Comment(s): "small heart attacks", gout, kidney stones. back pain. kidney function 40%, hypokalemia; wound Rt buttock - using sitz baths History of Any Multi-Drug Resistant Organisms: None Reported Past Surgical History: Cholecystectomy, Heart Catheterization, Orthopedic Keyana lyndsey Additional Past Surgical History / Comment(s): Cholecystectomy with hernia repair , Bilateral cataract surgery, left knee arthroscopy, ORIF left knee open reduction and internal fixation after injury, pain procedures Past Anesthesia/Blood Transfusion Reactions: No Reported Reaction Past Psychological History: No Psychological Hx Reported Additional Psychological History / Comment(s): claustrophobic Smoking Status: Former smoker Past Alcohol Use History: None Reported Additional Past Alcohol Use History / Comment(s): Patient is smoker 1 ppd since he was 11 years of age. Past Drug Use History: None Reported - Past Family History Father History Unknown: Yes Family Medical History: Cancer Additional Family Medical History / Comment(s): . Mother History Unknown: Yes Family Medical History: Cancer Additional Family Medical History / Comment(s): . Brother(s) Family Medical History: No Reported History Additional Family Medical History / Comment(s): from overdose Sister(s) Family Medical History: No Reported History Additional Family Medical History / Comment(s): Patient has 2 sisters and mother from drug overdose after chronic pain syndrome from low back pain. Medications and Allergies Home Medications Medication Instructions Recorded Confirmed Type allopurinoL [Zyloprim] 100 mg PO DAILY 08/08/14 07/25/22 History Atorvastatin [Lipitor] 20 mg PO DAILY 10/21/17 07/25/22 History Montelukast [Singulair] 10 mg PO HS 10/21/17 07/25/22 History amLODIPine [Norvasc] 10 mg PO HS 10/21/17 07/25/22 History Terazosin HCl 5 mg PO HS 02/18/20 07/25/22 History Sotalol [Betapace] 80 mg PO BID #60 tab 02/25/20 07/25/22 Rx Apixaban [Eliquis] 5 mg PO BID 07/15/20 07/25/22 History Insulin Detemir [Levemir Flextouch 25 units SQ HS 07/15/20 07/25/22 History Pen] oxyCODONE HCL/ACETAMINOPHEN 1 tab PO Q6H PRN 11/01/20 07/25/22 History [oxyCODONE HCL/ACETAMINOPHEN 7.5-325] Doxycycline Monohydrate [Monodox] 100 mg PO BID 06/18/21 07/25/22 History Budesonide/Formoterol Fumarate 2 puff INHALATION RT-BID 02/06/22 07/25/22 History [Symbicort 160-4.5 Mcg Inhaler] Ergocalciferol [Vitamin D2 (1250 1,250 mcg PO Q7D 02/06/22 07/25/22 History Mcg = 50757 Iu)] Gabapentin [Neurontin] 200 mg PO TID #18 cap 02/07/22 07/25/22 Rx predniSONE [Deltasone] 20 mg PO BID #8 tab 07/20/22 07/25/22 Rx Baclofen 10 mg PO TID 07/25/22 07/25/22 History LORazepam [Ativan] 0.5 mg PO DAILY PRN 07/25/22 07/25/22 History Losartan [Cozaar] 50 mg PO DAILY 07/25/22 07/25/22 History Nitroglycerin Sl Tabs [Nitrostat] 0.4 mg SL Q5M PRN 07/25/22 07/25/22 History Spironolactone [Aldactone] 50 mg PO DAILY 07/25/22 07/25/22 History Tamsulosin HCl [Flomax] 0.4 mg PO DAILY 07/25/22 07/25/22 History metOLazone [Zaroxolyn] 2.5 mg PO Q2D 07/25/22 07/25/22 History Allergies Allergy/AdvReac Type Severity Reaction Status Date / Time insulin glargine AdvReac Diarrhea Verified 07/20/22 00:21 [From Lantus U-100 Insulin] Physical Exam Vitals: Vital Signs Temp Pulse Resp BP Pulse Ox 07/25/22 09:00 102 H 18 106/83 99 07/25/22 07:52 18 07/25/22 07:45 104 H 18 108/89 98 07/25/22 06:44 97.7 F 104 H 16 111/83 97 07/25/22 06:13 95 16 98 07/25/22 05:00 104 H 16 105/67 96 07/25/22 04:26 106 H 07/25/22 04:10 115 H 16 121/97 99 07/25/22 04:00 113 H 07/25/22 03:30 101 H 07/25/22 03:00 98 07/25/22 02:30 112 H 07/25/22 02:10 107 H 16 110/74 98 07/25/22 01:47 107 H 07/25/22 01:17 98.1 F 114 H 18 114/82 97 Intake and Output 07/24/22 07/25/22 07/25/22 22:59 06:59 14:59 Intake Total 118 Balance 118 Intake: Oral 118 Other: Weight 111.13 kg 111.13 kg PHYSICAL EXAMINATION: GENERAL: The patient is alert and oriented x3, not in any acute distress. Well developed, well nourished. HEENT: Pupils are round and equally reacting to light. EOMI. No scleral icterus. No conjunctival pallor. Normocephalic, atraumatic. No pharyngeal erythema. No thyromegaly. CARDIOVASCULAR: S1 and S2 present. No murmurs, rubs, or gallops. PULMONARY: Chest is clear to auscultation, no wheezing or crackles. ABDOMEN: Soft, nontender, nondistended, normoactive bowel sounds. No palpable organomegaly. MUSCULOSKELETAL: No joint swelling or deformity. EXTREMITIES: No cyanosis, clubbing, or pedal edema. NEUROLOGICAL: Gross neurological examination did not reveal any focal deficits. SKIN: No rashes. Results CBC & Chem 7: 07/25/22 01:51 07/25/22 01:51 Labs: Abnormal Lab Results - Last 24 Hours (Table) 07/25/22 07/25/22 07/25/22 Range/Units 01:51 01:51 07:51 APTT 20.5 L (22.0-30.0) sec Sodium 133 L (137-145) mmol/L BUN 40 H (9-20) mg/dL Creatinine 1.43 H (0.66-1.25) mg/dL Glucose 155 H (74-99) mg/dL POC Glucose (mg/dL) 195 H (70-110) mg/dL 07/25/22 Range/Units 12:12 APTT (22.0-30.0) sec Sodium (137-145) mmol/L BUN (9-20) mg/dL Creatinine (0.66-1.25) mg/dL Glucose (74-99) mg/dL POC Glucose (mg/dL) 176 H (70-110) mg/dL Thrombosis Risk Factor Assmnt - Choose All That Apply Any of the Below Risk Factors Present?: No Other Risk Factors: Yes Each Risk Factor Represents 2 Points: Age 61-74 years Thrombosis Risk Factor Assessment Total Risk Factor Score: 2 Thrombosis Risk Factor Assessment Level: Low Risk Assessment and Plan Assessment: Assessment and plan * Chest pain rule out acute coronary syndrome * Atrial fibrillation with rapid ventricular response * Coronary artery disease * Hypertension * Hyperlipidemia * History of pulmonary embolism * History of COPD with recent exacerbation prior to hospitalization * Consult obtained from cardiology, serial troponins obtained at remain negative * Cardiac medications adjusted, continue patient on metoprolol, continue sotalol, continue Eliquis and amlodipine * In regards to history of hypertension continue amlodipine, metoprolol * In regards to COPD patient was receiving prednisone at home patient to complete course day 5 of , continue patient on breathing treatments Symbicort, albuterol as needed * In regards to pulmonary embolism continue patient on anticoagulation * CODE STATUS is full code
[2022-07-25] MEDS ORDERED: DILTIAZEM 125 MG in SODIUM CHLORIDE 0.9% 100 ML IV SCH (16:30)
[2022-07-25 17:16] LABS: Glucose,Whole Blood 272 mg/dL (70-110)
[2022-07-25 20:47] LABS: Glucose,Whole Blood 295 mg/dL (70-110)
[2022-07-25] MEDS ORDERED: amLODIPine 10 MG TAB PO SCH (21:00)
[2022-07-25] MEDS ORDERED: INSULIN DETEMIR (LEVEMIR) 100 UNIT/ML SYR SQ SCH (21:00)
[2022-07-25] MEDS ORDERED: MONTELUKAST 10 MG TAB PO SCH (21:00)
[2022-07-25] MEDS ORDERED: DOXAZOSIN 4 MG TAB PO SCH (21:00)
[2022-07-25] MEDS: SYMBICORT 160-4.5 MCG INHALER INHALATION SCH (21:05)
[2022-07-26] MEDS: oxyCODONE-APAP 7.5-325MG 1 EACH TAB PO PRN (06:30)
[2022-07-26 06:56] LABS: HCT 39.9 % (39.0-53.0); HGB 12.8 gm/dL (13.0-17.5); MCHC 32.2 g/dL (31.0-37.0); MCV 96.3 fL (80.0-100.0); Mean Platelet Volume 7.9; Platelet Count 177 k/uL (150-450); RBC 4.14 m/uL (4.30-5.90); RDW 14.5 % (11.5-15.5); WBC 9.4 k/uL (3.8-10.6)
[2022-07-26 07:10] LABS: African American GFR (CKD) 77 (>60 ml/min/1.73 sqM); Anion Gap 9 mmol/L; Blood Urea Nitrogen 28 mg/dL (9-20); Calcium 8.5 mg/dL (8.4-10.2); Carbon Dioxide 25 mmol/L (22-30); Chloride 100 mmol/L (98-107); Glucose 241 mg/dL (74-99); Non-African American GFR(CKD) 66 (>60 ml/min/1.73 sqM); Potassium 4.5 mmol/L (3.5-5.1); Sodium 134 mmol/L (137-145)
[2022-07-26 07:55] VITALS: BP 111/76; PULSE 73; RESP 16; TEMP 97.3
[2022-07-26 08:01] LABS: Glucose,Whole Blood 247 mg/dL (70-110)
[2022-07-26] MEDS: ATORVASTATIN 20 MG TAB PO SCH (08:29)
[2022-07-26] MEDS: GABAPENTIN 100 MG CAP PO SCH (08:29)
[2022-07-26] MEDS: APIXABAN 5 MG TAB PO SCH (08:29)
[2022-07-26] MEDS: BACLOFEN 10 MG TAB PO SCH (08:29)
[2022-07-26] MEDS: TAMSULOSIN 0.4 MG CAP.ER.24H PO SCH (08:30)
[2022-07-26] MEDS: NICOTINE 21MG/24HR PATCH TRANSDERM SCH (08:30)
[2022-07-26] MEDS: SOTALOL 80 MG TAB PO SCH (08:30)
[2022-07-26] MEDS: predniSONE 20 MG TAB PO SCH (08:30)
[2022-07-26] MEDS: SYMBICORT 160-4.5 MCG INHALER INHALATION SCH (08:33)
[2022-07-26] MEDS ORDERED: METOPROLOL SUCCINATE (ER) 50 MG TAB.ER.24H PO SCH (09:00)
--- NOTE | 2022-07-26 11:21 | P.PN ---
Subjective Progress Note Date: 07/26/22 HISTORY OF PRESENT ILLNESS: This is a 67-year-old male with a past medical history significant for coronary artery disease, atrial fibrillation, hypertension, hyperlipidemia, diabetes, pulmonary embolism, and COPD. Patient follows with a coal unloader in [place], Dr. Hare. We have been asked to see the patient in consultation for chest pain. Patient examined at the bedside. Patient states that he saw his coal unloader yesterday and had complaints of his heart racing and shortness of breath. He states that he recently had a cardioversion in January 2022. He was started on digoxin yesterday per his coal unloader and was scheduled to see an talent acquisition associate on an outpatient basis. He was told by his coal unloader of his symptoms got worse to come to the emergency room. The patient states that he started having chest pain yesterday which felt like a dull ache but o ccasionally would feel like a squeezing sensation. He states it was worse yesterday when he was doing laundry. The patient was found to be in atrial fibrillation with mild RVR. He currently denies chest pain at the time of examination. * EKG reveals atrial fibrillation with mild RVR. No signs of acute ischemia * Chest xray negative for acute process * Laboratory data: WBC 10.2. Hemoglobin 14.4. Platelet count 207. Sodium 133. Potassium 4.4. BUN 40. Creatinine 1.43. Troponin negative 2. * Current home cardiac medications include Lipitor 20 mg daily, losartan 50 mg daily, sotalol 80 mg twice a day, Aldactone 50 mg daily, amlodipine 10 mg at night, Zaroxolyn 2.5 mg every 48 hours, and Eliquis 5mg BID * Most recent echocardiogram obtained in January 2022 revealed ejection fraction 55-60%, mild MR * Cardiac catheterization history: January 2022 revealing chronic total occlusion of the RCA which fills via ipsilateral and contralateral collaterals. [id number] nonobstructive disease involving the left coronary system. Normal left-sided filling pressures. 07/26/2022 Patient examined this morning at the bedside. Patient denies chest pain or pressure. He denies shortness of breath. Patient developed RVR yesterday evening and was placed on a Cardizem drip. This morning, his heart rates are well controlled. Blood pressure is stable. PHYSICAL EXAM: VITAL SIGNS: Reviewed. GENERAL: Well-developed in no acute distress. HEENT: Head is normocephalic. Pupils are equal, round. Sclerae anicteric. Mucous membranes of the mouth are moist. Neck supple. No JVD or thyromegaly LUNGS: Respirations even and unlabored. Lungs essentially clear to auscultation bilaterally. HEART: Tachycardic. Irregular rate and rhythm. S1 and S2 heard. ABDOMEN: Soft. Nondistended. Nontender. EXTREMITIES: Normal range of motion. No clubbing or cyanosis. Peripheral pulses intact. No lower extremity edema NEUROLOGIC: Awake and alert. Oriented x 3. ASSESSMENT: Persistent atrial fibrillation with mild RVR History of cardioversion, January 2022 Chest pain, troponins negative 2, may be secondary to A. fib with mild RVR Coronary artery disease Hypertension Hyperlipidemia Diabetes History of pulmonary embolism COPD PLAN: Increase metoprolol succinate to 50 mg daily Discontinue Cardizem drip Continue additional cardiac medications Patient may be discharged home as afternoon if his heart rates remain stable and follow up with his primary coal unloader Nurse practitioner note has been reviewed by physician. Signing provider agrees with the documented findings, assessment, and plan of care. Objective - Vital Signs Vital signs: Vital Signs Temp 97.3 F L 07/26/22 07:02 Pulse 73 07/26/22 07:02 Resp 16 07/26/22 07:02 BP 111/76 07/26/22 07:02 Pulse Ox 96 07/26/22 07:02 FiO2 Intake & Output 07/25/22 07/26/22 07/26/22 18:59 06:59 18:59 Intake Total 236 256 Balance 236 256 Weight 111.13 kg Intake: Oral 236 256 Other: # Voids 1 3 - Labs CBC & Chem 7: 07/26/22 06:13 07/26/22 06:13 Labs: Abnormal Lab Results - Last 24 Hours (Table) 07/25/22 07/25/22 07/25/22 Range/Units 12:12 17:14 20:46 RBC (4.30-5.90) m/uL Hgb (13.0-17.5) gm/dL Sodium (137-145) mmol/L BUN (9-20) mg/dL Glucose (74-99) mg/dL POC Glucose (mg/dL) 176 H 272 H 295 H (70-110) mg/dL 07/26/22 07/26/22 07/26/22 Range/Units 06:13 06:13 08:00 RBC 4.14 L (4.30-5.90) m/uL Hgb 12.8 L (13.0-17.5) gm/dL Sodium 134 L (137-145) mmol/L BUN 28 H (9-20) mg/dL Glucose 241 H (74-99) mg/dL POC Glucose (mg/dL) 247 H (70-110) mg/dL
[2022-07-26 12:09] LABS: Glucose,Whole Blood 200 mg/dL (70-110)
--- NOTE | 2022-07-26 12:51 | P.DS ---
Providers Date of admission: 07/25/22 03:37 Expected date of discharge: 07/26/22 Attending physician: Edison Ching Consults: 07/25/22 03:36 Consult Physician Urgent Consulting Provider: [facility] Consult Reason/Comments: chest pain Do you want consulting provider notified?: Yes, Notify in am Primary care physician: [facility] Course: * 67-year-old gentleman with past medical history significant for atrial fibrillation, coronary artery disease, hypertension, hyperlipidemia history of COPD, pulmonary embolism, diabetes mellitus presented to the emergency department with complaints of chest pain. Patient also complained of associated shortness of breath * Workup initiated including EKG which showed atrial fibrillation with elevated heart rate no ST segment changes were noted * Chest x-ray obtained on admission was negative for acute intrathoracic process * Blood work obtained showed normal white cell count improved Lovenox 14.4, platelet of 207, serum chemistry showed sodium 133 potassium 4.4, creatinine 1.43 * Serial troponins obtained which were negative * Consultation was obtained from cardiology and patient placed in observation for chest pain workup * Per chart review patient had cardiac catheterization done in January 2022 which showed chronic total occlusion of RCA, [id number] nonobstructive disease in the left coronary system was noted as well * Patient was seen by cardiology and was noted to have episode of A. fib RVR, patient was briefly started on IV Cardizem and was transitioned to oral metoprolol * Patient already receiving sotalol as well, cardiology aware * Patient discharged home and follow up with primary nurses educator recommended PHYSICAL EXAMINATION: GENERAL: The patient is alert and oriented x3, not in any acute distress. Well developed, well nourished. HEENT: Pupils are round and equally reacting to light. EOMI. No scleral icterus. No conjunctival pallor. Normocephalic, atraumatic. No pharyngeal erythema. No thyromegaly. CARDIOVASCULAR: S1 and S2 present. No murmurs, rubs, or gallops. PULMONARY: Chest is clear to auscultation, no wheezing or crackles. ABDOMEN: Soft, nontender, nondistended, normoactive bowel sounds. No palpable organomegaly. MUSCULOSKELETAL: No joint swelling or deformity. EXTREMITIES: No cyanosis, clubbing, or pedal edema. NEUROLOGICAL: Gross neurological examination did not reveal any focal deficits. SKIN: No rashes. Assessment: Assessment and plan * Chest pain ruled out acute coronary syndrome * Atrial fibrillation with rapid ventricular response * Coronary artery disease * Hypertension * Hyperlipidemia * History of pulmonary embolism * History of COPD with recent exacerbation prior to hospitalization * Consult obtained from cardiology, serial troponins obtained at remain negative * Cardiac medications adjusted, continue patient on metoprolol, continue sotalol, continue Eliquis and amlodipine * In regards to history of hypertension continue amlodipine, metoprolol * In regards to COPD patient was receiving prednisone at home patient to complete course day 5 of , continue patient on breathing treatments Symbic ort, albuterol as needed * In regards to pulmonary embolism continue patient on anticoagulation * Okay from Cardiology for discharge Patient Condition at Discharge: Fair Plan - Discharge Summary Discharge Rx Participant: Yes New Discharge Prescriptions: New Metoprolol Succinate (ER) [Toprol XL] 50 mg PO DAILY 30 Days #30 tab Continue allopurinoL [Zyloprim] 100 mg PO DAILY Montelukast [Singulair] 10 mg PO HS amLODIPine [Norvasc] 10 mg PO HS Atorvastatin [Lipitor] 20 mg PO DAILY Terazosin HCl 5 mg PO HS Sotalol [Betapace] 80 mg PO BID #60 tab oxyCODONE HCL/ACETAMINOPHEN [oxyCODONE HCL/ACETAMINOPHEN 7.5-325] 1 tab PO Q6H PRN PRN Reason: Pain Ergocalciferol [Vitamin D2 (1250 Mcg = 03251 Iu)] 1,250 mcg PO Q7D Losartan [Cozaar] 50 mg PO DAILY Tamsulosin HCl [Flomax] 0.4 mg PO DAILY LORazepam [Ativan] 0.5 mg PO DAILY PRN PRN Reason: panic attacks Spironolactone [Aldactone] 50 mg PO DAILY Baclofen 10 mg PO TID Apixaban [Eliquis] 5 mg PO BID Insulin Detemir [Levemir Flextouch Pen] 25 units SQ HS Budesonide/Formoterol Fumarate [Symbicort 160-4.5 Mcg Inhaler] 2 puff INHALATION RT-BID Gabapentin [Neurontin] 200 mg PO TID #18 cap metOLazone [Zaroxolyn] 2.5 mg PO Q2D Nitroglycerin Sl Tabs [Nitrostat] 0.4 mg SL Q5M PRN PRN Reason: Chest Pain Discontinued Doxycycline Monohydrate [Monodox] 100 mg PO BID predniSONE [Deltasone] 20 mg PO BID #8 tab Discharge Medication List allopurinoL [Zyloprim] 100 mg PO DAILY 08/08/14 [History] Atorvastatin [Lipitor] 20 mg PO DAILY 10/21/17 [History] Montelukast [Singulair] 10 mg PO HS 10/21/17 [History] amLODIPine [Norvasc] 10 mg PO HS 10/21/17 [History] Terazosin HCl 5 mg PO HS 02/18/20 [History] Sotalol [Betapace] 80 mg PO BID #60 tab 02/25/20 [Rx] Apixaban [Eliquis] 5 mg PO BID 07/15/20 [History] Insulin Detemir [Levemir Flextouch Pen] 25 units SQ HS 07/15/20 [History] oxyCODONE HCL/ACETAMINOPHEN [oxyCODONE HCL/ACETAMINOPHEN 7.5-325] 1 tab PO Q6H PRN 11/01/20 [History] Budesonide/Formoterol Fumarate [Symbicort 160-4.5 Mcg Inhaler] 2 puff INHALATION RT-BID 02/06/22 [History] Ergocalciferol [Vitamin D2 (1250 Mcg = 81193 Iu)] 1,250 mcg PO Q7D 02/06/22 [History] Gabapentin [Neurontin] 200 mg PO TID #18 cap 02/07/22 [Rx] Baclofen 10 mg PO TID 07/25/22 [History] LORazepam [Ativan] 0.5 mg PO DAILY PRN 07/25/22 [History] Losartan [Cozaar] 50 mg PO DAILY 07/25/22 [History] Nitroglycerin Sl Tabs [Nitrostat] 0.4 mg SL Q5M PRN 07/25/22 [History] Spironolactone [Aldactone] 50 mg PO DAILY 07/25/22 [History] Tamsulosin HCl [Flomax] 0.4 mg PO DAILY 07/25/22 [History] metOLazone [Zaroxolyn] 2.5 mg PO Q2D 07/25/22 [History] Metoprolol Succinate (ER) [Toprol XL] 50 mg PO DAILY 30 Days #30 tab 07/26/22 [Rx] Follow up Appointment(s)/Referral(s): Tanesha Long MD [Primary Care Provider] - 1-2 days Discharge Disposition: HOME SELF-CARE
== END 2022-07-26 14:04 | disposition home or self-care (01) ==
LOC: EC 01:12 → 6NMEDSUR 03:37 → 3SCARD 04:16 → 6NMEDSUR 08:25
PROVIDERS: ADMIT Hospitalist; ATTEND Hospitalist
DX: R07.89 Other chest pain (principal); I48.19 Other persistent atrial fibrillation; I25.10 Atherosclerotic heart disease of native coronary artery without angina pectoris; I10 Essential (primary) hypertension; J44.9 Chronic obstructive pulmonary disease, unspecified; E78.5 Hyperlipidemia, unspecified; I25.82 Chronic total occlusion of coronary artery; M19.90 Unspecified osteoarthritis, unspecified site; M10.9 Gout, unspecified; N42.9 Disorder of prostate, unspecified; L98.9 Disorder of the skin and subcutaneous tissue, unspecified; F40.240 Claustrophobia; Z79.01 Long term (current) use of anticoagulants; Z79.4 Long term (current) use of insulin; Z79.51 Long term (current) use of inhaled steroids; Z79.82 Long term (current) use of aspirin; Z79.899 Other long term (current) drug therapy; Z88.8 Allergy status to other drugs, medicaments and biological substances; Z86.711 Personal history of pulmonary embolism; Z87.891 Personal history of nicotine dependence; Z87.442 Personal history of urinary calculi; Z90.49 Acquired absence of other specified parts of digestive tract; Z98.42 Cataract extraction status, left eye; Z98.41 Cataract extraction status, right eye; Z98.890 Other specified postprocedural states; Z80.9 Family history of malignant neoplasm, unspecified; Z84.89 Family history of other specified conditions
CPT/HCPCS: 96365; 96366 ×2; 99285; 36415; 94640; 93005; 80053; 80048; 83735; 84484; 85025; 85027; 85610; 85730; 71046; G0378 ×3; J7512

== ENCOUNTER 2022-08-03 13:39 | Observation (INO) | payer MEDICARE, OTHER ==
[2022-08-03] MEDS ORDERED: SODIUM CHLORIDE 0.9% 1,000 ML IV STA (14:12)
--- NOTE | 2022-08-03 14:13 | ED ---
Chest Pain HPI - General Chief Complaint: Chest Pain Stated Complaint: afib Time Seen by Provider: 08/03/22 14:07 Source: patient, RN notes reviewed, old records reviewed Mode of arrival: ambulatory Limitations: no limitations - History of Present Illness Initial Comments: This is a 67-year-old male who presents today for evaluation regards to chest pain. Patient was recently of inpatient treatment at [facility]. Patient had cardioversion for atrial fibrillation, patient presents today for evaluation of chest pain and weakness pale and not feeling well MD Complaint: chest pain, other (Weakness) -: hour(s) Onset: during rest, during exertion, awoke with symptoms Pain Location: substernal, epigastric Pain Radiation: none Severity: moderate Severity scale (1-10): 4 Quality: tightness Consistency: intermittent Improves With: nothing Worsens With: nothing Anginal Symptoms: dyspnea, sense of impending doom Treatments Prior to Arrival: none - Related Data Home Medications Medication Instructions Recorded Confirmed allopurinoL [Zyloprim] 100 mg PO DAILY@0800 08/08/14 08/03/22 Montelukast [Singulair] 10 mg PO HS 10/21/17 08/03/22 Terazosin HCl 5 mg PO HS 02/18/20 08/03/22 Apixaban [Eliquis] 5 mg PO BID@0800,1700 07/15/20 08/03/22 Insulin Detemir [Levemir Flextouch 20 - 25 units SQ HS 07/15/20 08/03/22 Pen] oxyCODONE HCL/ACETAMINOPHEN 1 tab PO Q6H PRN 11/01/20 08/03/22 [oxyCODONE HCL/ACETAMINOPHEN 7.5-325] Budesonide/Formoterol Fumarate 2 puff INHALATION RT-BID 02/06/22 08/03/22 [Symbicort 160-4.5 Mcg Inhaler] Baclofen 10 mg PO TID@0800,1600,0000 07/25/22 08/03/22 LORazepam [Ativan] 0.5 mg PO DAILY PRN 07/25/22 08/03/22 Tamsulosin HCl [Flomax] 0.4 mg PO DAILY 07/25/22 08/03/22 Albuterol Inhaler [Ventolin Hfa 2 puff INHALATION RT-Q4H PRN 08/03/22 08/03/22 Inhaler] Amiodarone [Cordarone] See Taper PO DIRECTED 08/03/22 08/03/22 Aspirin EC [Ecotrin Low Dose] 81 mg PO DAILY@0800 08/03/22 08/03/22 Atorvastatin [Lipitor] 40 mg PO HS@2000 08/03/22 08/03/22 Gabapentin [Neurontin] 200 mg PO TID@0800,1600,0000 08/03/22 08/03/22 Metoprolol Tartrate [Lopressor] 25 mg PO Q12H 08/03/22 08/03/22 amLODIPine [Norvasc] 5 mg PO DAILY@0800 08/03/22 08/03/22 Allergies Allergy/AdvReac Type Severity Reaction Status Date / Time insulin glargine AdvReac Diarrhea Verified 08/03/22 19:06 [From Lantus U-100 Insulin] Review of Systems ROS Statement: Those systems with pertinent positive or pertinent negative responses have been documented in the HPI. ROS Other: All systems not noted in ROS Statement are negative. EKG Findings - EKG Comments: EKG Findings:: EKG sinus 59 LA 202 QRS 106 QTc 436 - EKG Results: EKG: interpreted by ERMD Past Medical History Past Medical History: Atrial Fibrillation, COPD, Diabetes Mellitus, Deep Vein Thrombosis (DVT), Hyperlipidemia, Hypertension, Osteoarthritis (OA), Prostate Disorder, Pulmonary Embolus (PE), Renal Disease, Skin Disorder Additional Past Medical History / Comment(s): "small heart attacks", gout, kidney stones. back pain. kidney function 40%, hypokalemia; wound Rt buttock - using sitz baths cardioversion 08/02/22 History of Any Multi-Drug Resistant Organisms: None Reported Past Surgical History: Cholecystectomy, Heart Catheterization, Orthopedic Surgery Additional Past Surgical History / Comment(s): Cholecystectomy with hernia repair , Bilateral cataract surgery, left knee arthroscopy, ORIF left knee open reduction and internal fixation after injury, pain procedures Past Anesthesia/Blood Transfusion Reactions: No Reported Reaction Past Psychological History: No Psychological Hx Reported Smoking Status: Former smoker Past Alcohol Use History: None Reported Past Drug Use History: None Reported - Past Family History Father History Unknown: Yes Family Medical History: Cancer Additional Family Medical History / Comment(s): . Mother History Unknown: Yes Family Medical History: Cancer Additional Family Medical History / Comment(s): . Brother(s) Family Medical History: No Reported History Additional Family Medical History / Comment(s): from overdose Sister(s) Family Medical History: No Reported History Additional Family Medical History / Comment(s): Patient has 2 sisters and mother from drug overdose after chronic pain syndrome from low back pain. General Exam Limitations: no limitations General appearance: alert, in no apparent distress Head exam: Present: atraumatic, normocephalic, normal inspection Eye exam: Present: normal appearance, PERRL, EOMI. Absent: scleral icterus, conjunctival injection, periorbital swelling ENT exam: Present: normal exam, mucous membranes moist Neck exam: Present: normal inspection. Absent: tenderness, meningismus, lymphadenopathy Respiratory exam: Present: normal lung sounds bilaterally. Absent: respiratory distress, wheezes, rales, rhonchi, stridor Cardiovascular Exam: Present: regular rate, normal rhythm, normal heart sounds. Absent: systolic murmur, diastolic murmur, rubs, gallop, clicks GI/Abdominal exam: Present: soft, normal bowel sounds. Absent: distended, tenderness, guarding, rebound, rigid Extremities exam: Present: normal inspection, full ROM, normal capillary refill. Absent: tenderness, pedal edema, joint swelling, calf tenderness Back exam: Present: normal inspection Neurological exam: Present: alert, oriented X3, CN II-XII intact Psychiatric exam: Present: normal affect, normal mood Skin exam: Present: warm, dry, intact, normal color. Absent: rash Course Vital Signs 08/03/22 08/03/22 08/03/22 13:42 14:10 15:20 Temperature 98 F Pulse Rate 59 L 57 L Pulse Rate [ 58 L [employer] ] Respiratory 18 16 Rate Blood Pressure 157/80 140/68 O2 Sat by Pulse 100 98 Oximetry 08/03/22 08/03/22 08/03/22 16:33 16:59 17:14 Temperature 97.8 F Pulse Rate 58 L 55 L 58 L Pulse Rate [ [employer] ] Respiratory 18 Rate Blood Pressure 126/83 O2 Sat by Pulse 97 Oximetry 08/03/22 08/03/22 18:00 19:22 Temperature 98.0 F 97.2 F L Pulse Rate 68 58 L Pulse Rate [ [employer] ] Respiratory 20 16 Rate Blood Pressure 130/58 137/68 O2 Sat by Pulse 97 97 Oximetry - Reevaluation(s) Reevaluation #1: 08/03/22 16:55 Medical record is reviewed Reevaluation #2: 08/03/22 16:55 Patient symptoms are unchanged Reevaluation #3: 08/03/22 16:56 Patient informed of results and questions answered Reevaluation #4: 08/03/22 16:56 Was pt. sent in by a medical professional or institution? @ -no Did you speak to anyone other than the patient for history? @ -no Did you review nursing and triage notes? @ -agree Were old charts reviewed? @ -no Differential Diagnosis? @ -prior EKG interpreted by me (3pts min.)? @ -yes X-rays interpreted by me (1pt min.)? @ -no CT interpreted by me (1pt min.)? @ -no U/S interpreted by me (1pt. min.)? @ -no What testing was considered but not performed? (CT, X-rays, U/S, labs)? Why? @ -no What meds were considered but not given? Why? @ -no Did you discuss the management of the patient with other professionals? @ -no Did you reconcile home meds? @ -no Was smoking cessation discussed for >3mins.? @ -no Was critical care preformed (if so, how long)? @ -no Were there social determinants of health that impacted care today? How? (Homelessness, low income, unemployed, alcoholism, drug addiction, transportation, low edu. Level, literacy, decrease access to med. care, usp, rehab)? @ -no Was there de-escalation of care discussed even if they declined? (Discuss DNR or withdrawal of care, Hospice)? @ -no What co-morbidities impacted this encounter? (DM, HTN, Smoking, COPD, CAD, Cancer, CVA, Hep., AIDS, mental health diagnosis, sleep apnea, morbid obesity)? @ -none Was patient admitted / discharged? @ - Undiagnosed new problem with uncertain prognosis? @ -no Drug Therapy requiring intensive monitoring for toxicity (Heparin, Nitro, Insulin, Cardizem)? @ -no Were any procedures done? @ -no Diagnosis/symptom? @ - Acute, or Chronic, or Acute on Chronic? @ -no Uncomplicated (without systemic symptoms) or Complicated (systemic symptoms)? @ -uncomplicated Side effects of treatment? @ -no Exacerbation, Progression, or Severe Exacerbation] @ -no Poses a threat to life or bodily function? @ -no Reevaluation #5: 08/03/22 16:56 Differential Chest Pain: Stable Angina, Unstable Angina, STEMI, NSTEMI Aortic Dissection, Pneumothorax, Musculoskeletal, Esophageal Spasm GERD, Cholecystitis, Pancreatitis, Zoster, this is not meant to be an all-inclusive list. Chest Pain MDM - MDM 67 male to the ER today. Patient presents today for evaluation regards to chest pain is cardioversion yesterday. Patient is borderline bradycardic with normal blood pressure and patient will be admitted for cardiac for observation Disposition Clinical Impression: Atypical chest pain, Chest pain, Weakness, Bradycardia Disposition: ADMITTED IP TO THIS HOSP Condition: Fair Is patient prescribed a controlled substance at d/c from ED?: No Time of Disposition: 17:00
[2022-08-03 14:32] LABS: Basophils % (A) 0 %; Eosinophils # (A) 0.1 k/uL (0-0.7); Eosinophils % (A) 1 %; HCT 39.6 % (39.0-53.0); HGB 12.9 gm/dL (13.0-17.5); Lymphocytes # (A) 1.3 k/uL (1.0-4.8); Lymphocytes % (A) 19 %; MCH 31.4 pg (25.0-35.0); MCHC 32.5 g/dL (31.0-37.0); MCV 96.5 fL (80.0-100.0); Mean Platelet Volume 7.4; Monocytes # (A) 0.5 k/uL (0-1.0); Monocytes % (A) 7 %; Neutrophils # (A) 4.6 k/uL (1.3-7.7); Neutrophils % (A) 71 %; Platelet Count 165 k/uL (150-450); RBC 4.11 m/uL (4.30-5.90); WBC 6.5 k/uL (3.8-10.6)
[2022-08-03 14:44] LABS: ALT 59 U/L (4-49); AST 51 U/L (17-59); African American GFR (CKD) 81 (>60 ml/min/1.73 sqM); Alkaline Phosphatase 84 U/L (38-126); Anion Gap 8 mmol/L; Blood Urea Nitrogen 21 mg/dL (9-20); Calcium 9.1 mg/dL (8.4-10.2); Carbon Dioxide 24 mmol/L (22-30); Chloride 105 mmol/L (98-107); Glucose 109 mg/dL (74-99); Lipase 48 U/L (23-300); Magnesium 2.1 mg/dL (1.6-2.3); Non-African American GFR(CKD) 70 (>60 ml/min/1.73 sqM); Potassium 4.3 mmol/L (3.5-5.1); Sodium 137 mmol/L (137-145); Total Bilirubin 0.8 mg/dL (0.2-1.3); Total Protein 6.5 g/dL (6.3-8.2)
[2022-08-03 14:47] LABS: INR 0.9 (<1.2); Partial Thromboplastin Time 26.7 sec (22.0-30.0); Prothrombin Time 9.9 sec (9.0-12.0)
[2022-08-03] MEDS ORDERED: IPRATROPIUM-ALBUTEROL 3 ML NEB INHALATION STA (15:43)
--- NOTE | 2022-08-03 16:04 | XR ---
EXAMINATION TYPE: XR chest 1V portable DATE OF EXAM: 08/03/2022 3:54 PM COMPARISON: Chest radiographs from 07/25/2022. TECHNIQUE: XR chest 1V portable Frontal view of the chest. CLINICAL INDICATION:Male, 67 years old with history of sob; FINDINGS: Lungs/Pleura: There is no evidence of pleural effusion, focal consolidation, or pneumothorax. Pulmonary vascularity: Unremarkable. Heart/mediastinum: Cardiomediastinal silhouette is unremarkable. Musculoskeletal: No acute osseous pathology. IMPRESSION: No acute cardiopulmonary disease/process.
[2022-08-03] MEDS ORDERED: ONDANSETRON 4 MG/2 ML VIAL IVP PRN (17:21)
[2022-08-03] MEDS ORDERED: ACETAMINOPHEN TAB 325 MG TAB PO PRN (17:21)
[2022-08-03] MEDS ORDERED: NALOXONE 0.4 MG/ML 1 ML VIAL IV PRN (17:21)
[2022-08-03] MEDS ORDERED: MORPHINE SULFATE 4 MG/ML SYRINGE IV PRN (17:21)
[2022-08-03] MEDS ORDERED: LORazepam 0.5 MG TAB PO PRN (21:15)
[2022-08-03] MEDS ORDERED: ALBUTEROL NEBULIZED 2.5 MG/3 ML INHALATION PRN (21:15)
[2022-08-03] MEDS ORDERED: oxyCODONE-APAP 7.5-325MG 1 EACH TAB PO PRN (21:15)
[2022-08-03] MEDS ORDERED: ATORVASTATIN 20 MG TAB PO SCH (21:16)
[2022-08-03] MEDS ORDERED: ATORVASTATIN 40 MG TAB PO SCH (21:20)
[2022-08-03] MEDS ORDERED: MONTELUKAST 10 MG TAB PO SCH (21:30)
[2022-08-03] MEDS ORDERED: DOXAZOSIN 4 MG TAB PO SCH (21:30)
[2022-08-03] MEDS: GABAPENTIN 100 MG CAP PO SCH (22:19)
[2022-08-03] MEDS: BACLOFEN 10 MG TAB PO SCH (22:19)
[2022-08-03] MEDS: METOPROLOL TARTRATE 25 MG TAB PO SCH (22:19)
[2022-08-04] MEDS ORDERED: DEXTROSE 50% SYRINGE 50 ML IVP PRN ×2 (00:51)
[2022-08-04 06:19] LABS: Glucose,Whole Blood 142 mg/dL (70-110)
[2022-08-04 07:01] LABS: ALT 51 U/L (4-49); AST 42 U/L (17-59); African American GFR (CKD) 80 (>60 ml/min/1.73 sqM); Albumin 3.5 g/dL (3.5-5.0); Albumin/Globulin Ratio 1.5; Alkaline Phosphatase 76 U/L (38-126); Anion Gap 5 mmol/L; Blood Urea Nitrogen 17 mg/dL (9-20); Calcium 8.7 mg/dL (8.4-10.2); Carbon Dioxide 29 mmol/L (22-30); Chloride 103 mmol/L (98-107); Globulin 2.3 g/dL; Glucose 145 mg/dL (74-99); Non-African American GFR(CKD) 69 (>60 ml/min/1.73 sqM); Phosphorus 3.3 mg/dL (2.5-4.5); Potassium 4.3 mmol/L (3.5-5.1); Sodium 137 mmol/L (137-145); Total Bilirubin 0.8 mg/dL (0.2-1.3); Total Protein 5.8 g/dL (6.3-8.2)
[2022-08-04 07:02] LABS: Basophils % (A) 0 %; Eosinophils # (A) 0.1 k/uL (0-0.7); Eosinophils % (A) 1 %; HCT 38.9 % (39.0-53.0); HGB 12.6 gm/dL (13.0-17.5); Lymphocytes # (A) 1.6 k/uL (1.0-4.8); Lymphocytes % (A) 24 %; MCH 31.1 pg (25.0-35.0); MCHC 32.5 g/dL (31.0-37.0); MCV 95.7 fL (80.0-100.0); Mean Platelet Volume 7.9; Monocytes # (A) 0.5 k/uL (0-1.0); Monocytes % (A) 8 %; Neutrophils # (A) 4.2 k/uL (1.3-7.7); Neutrophils % (A) 64 %; Platelet Count 151 k/uL (150-450); RBC 4.06 m/uL (4.30-5.90); RDW 14.4 % (11.5-15.5); WBC 6.5 k/uL (3.8-10.6)
[2022-08-04] MEDS ORDERED: INSULIN ASPART (NovoLOG) 100 UNIT/ML VIAL SQ SCH (07:30)
[2022-08-04 07:51] VITALS: TEMP 98.2
[2022-08-04] MEDS ORDERED: amLODIPine 5 MG TAB PO SCH (08:00)
[2022-08-04] MEDS ORDERED: allopurinoL 100 MG TAB PO SCH (08:00)
[2022-08-04] MEDS ORDERED: ASPIRIN 81 MG PO SCH (08:00)
[2022-08-04] MEDS ORDERED: SYMBICORT 160-4.5 MCG INHALER INHALATION SCH (08:00)
[2022-08-04] MEDS ORDERED: TAMSULOSIN 0.4 MG CAP.ER.24H PO SCH (09:00)
[2022-08-04] MEDS ORDERED: APIXABAN 5 MG TAB PO SCH (09:00)
--- NOTE | 2022-08-04 10:52 | P.HPIM ---
History of Present Illness Patient is a 67-year-old male with history of atrial fibrillation coronary artery disease had a cardioversion done about 3-4 days ago for A. fib. Patient also had a cardiac catheterization patient does have history of coronary artery disease. The cardiac catheterization did not show any significant occlusive disease as per the patient patient just pain is pressure-like sensation midsternal [id number] in severity lasting for 5-15 minutes radiating to both arms preceded by episode of lightheadedness without any diaphoresis. Troponins are negative EKG did not show any acute ST-T wave changes. Chest x- ray is within normal limits. Patient has history of panic attacks for which patient is on Ativan on as-needed basis REVIEW OF SYSTEMS: CONSTITUTIONAL: No fever, no malaise, no fatigue. HEENT: No recent visual problems or hearing problems. Denied any sore throat. CARDIOVASCULAR: No orthopnea, PND, no palpitations, no syncope. PULMONARY: No shortness of breath, no cough, no hemoptysis. GASTROINTESTINAL: No diarrhea, no nausea, no vomiting, no abdominal pain. NEUROLOGICAL: No headaches, no weakness, no numbness. HEMATOLOGICAL: Denies any bleeding or petechiae. GENITOURINARY: Denies any burning micturition, frequency, or urgency. MUSCULOSKELETAL/RHEUMATOLOGICAL: Denies any joint pain, swelling, or any muscle pain. ENDOCRINE: Denies any polyuria or polydipsia. The rest of the 14-point review of systems is negative. PHYSICAL EXAMINATION: GENERAL: The patient is alert and oriented x3, not in any acute distress. Well developed, well nourished. HEENT: Pupils are round and equally reacting to light. EOMI. No scleral icterus. No conjunctival pallor. Normocephalic, atraumatic. No pharyngeal erythema. No thyromegaly. CARDIOVASCULAR: S1 and S2 present. No murmurs, rubs, or gallops. PULMONARY: Chest is clear to auscultation, no wheezing or crackles. ABDOMEN: Soft, nontender, nondistended, normoactive bowel sounds. No palpable organomegaly. MUSCULOSKELETAL: No joint swelling or deformity. EXTREMITIES: No cyanosis, clubbing, or pedal edema. NEUROLOGICAL: Gross neurological examination did not reveal any focal deficits. SKIN: No rashes. Assessment and plan -Chest pain: Patient is status post a. Cardioversion may have contributed to some inflammation of the cardiac muscle may be causing the chest pain or May be secondary to panic attacks and episodes of anxiety. Rule out a concurrent syndromes cardiology will evaluate the patient if cleared by cardiology patient will discharge to follow up with PCP to address the anxiety issues. -Proximal atrial fibrillation status post cardioversion presently sinus rhythm -COPD without any acute exacerbation patient is a former smoker -Type 2 diabetes mellitus -History of DVT in the past for which patient is on anticoagulation -Hyperlipidemia -Hypertension -Anxiety and panic attacks If cleared by cardiology patient will be discharged today to follow with PCP Past Medical History Past Medical History: Atrial Fibrillation, COPD, Diabetes Mellitus, Deep Vein Thrombosis (DVT), Hyperlipidemia, Hypertension, Osteoarthritis (OA), Prostate Disorder, Pulmonary Embolus (PE), Renal Disease, Skin Disorder Additional Past Medical History / Comment(s): "small heart attacks", gout, kidney stones. back pain. kidney function 40%, hypokalemia; wound Rt buttock - using sitz baths cardioversion 08/02/22 History of Any Multi-Drug Resistant Organisms: None Reported Past Surgical History: Cholecystectomy, Heart Catheterization, Orthopedic Surgery Additional Past Surgical History / Comment(s): Cholecystectomy with hernia repair , Bilateral cataract surgery, left knee arthroscopy, ORIF left knee open reduction and internal fixation after injury, pain procedures Past Anesthesia/Blood Transfusion Reactions: No Reported Reaction Past Psychological History: No Psychological Hx Reported Additional Psychological History / Comment(s): claustrophobic Smoking Status: Former smoker Past Alcohol Use History: None Reported Additional Past Alcohol Use History / Comment(s): Patient is smoker 1 ppd since he was 11 years of age. Past Drug Use History: None Reported - Past Family History Father History Unknown: Yes Family Medical History: Cancer Additional Family Medical History / Comment(s): . Mother History Unknown: Yes Family Medical History: Cancer Additional Family Medical History / Comment(s): . Brother(s) Family Medical History: No Reported History Additional Family Medical History / Comment(s): from overdose Sister(s) Family Medical History: No Reported History Additional Family Medical History / Comment(s): Patient has 2 sisters and mother from drug overdose after chronic pain syndrome from low back pain. Medications and Allergies Home Medications Medication Instructions Recorded Confirmed Type allopurinoL [Zyloprim] 100 mg PO DAILY@0800 08/08/14 08/03/22 History Montelukast [Singulair] 10 mg PO HS 10/21/17 08/03/22 History Terazosin HCl 5 mg PO HS 02/18/20 08/03/22 History Apixaban [Eliquis] 5 mg PO BID@0800,1700 07/15/20 08/03/22 History Insulin Detemir [Levemir Flextouch 20 - 25 units SQ HS 07/15/20 08/03/22 History Pen] oxyCODONE HCL/ACETAMINOPHEN 1 tab PO Q6H PRN 11/01/20 08/03/22 History [oxyCODONE HCL/ACETAMINOPHEN 7.5-325] Budesonide/Formoterol Fumarate 2 puff INHALATION RT-BID 02/06/22 08/03/22 History [Symbicort 160-4.5 Mcg Inhaler] Baclofen 10 mg PO TID@0800,1600,0000 07/25/22 08/03/22 History LORazepam [Ativan] 0.5 mg PO DAILY PRN 07/25/22 08/03/22 History Tamsulosin HCl [Flomax] 0.4 mg PO DAILY 07/25/22 08/03/22 History Albuterol Inhaler [Ventolin Hfa 2 puff INHALATION RT-Q4H PRN 08/03/22 08/03/22 History Inhaler] Amiodarone [Cordarone] See Taper PO DIRECTED 08/03/22 08/03/22 History Aspirin EC [Ecotrin Low Dose] 81 mg PO DAILY@0800 08/03/22 08/03/22 History Atorvastatin [Lipitor] 40 mg PO HS@199908/03/22 08/03/22 History Gabapentin [Neurontin] 200 mg PO TID@0800,1600,0000 08/03/22 08/03/22 History Metoprolol Tartrate [Lopressor] 25 mg PO Q12H 08/03/22 08/03/22 History amLODIPine [Norvasc] 5 mg PO DAILY@0800 08/03/22 08/03/22 History Allergies Allergy/AdvReac Type Severity Reaction Status Date / Time insulin glargine AdvReac Diarrhea Verified 08/03/22 19:06 [From Lantus U-100 Insulin] Physical Exam Vitals: Vital Signs Temp Pulse Pulse Pulse Resp BP BP 08/04/22 09:20 08/04/22 07:00 98.2 F 59 L 16 147/72 08/04/22 03:10 98.5 F 63 15 130/70 08/03/22 20:30 98.3 F 66 18 145/74 08/03/22 19:22 97.2 F L 58 L 16 137/68 08/03/22 18:00 98.0 F 68 20 130/58 08/03/22 17:14 58 L 08/03/22 16:59 55 L 08/03/22 16:33 97.8 F 58 L 18 126/83 08/03/22 15:20 57 L 16 140/68 08/03/22 14:10 58 L 08/03/22 13:42 98 F 59 L 18 157/80 Pulse Ox 08/04/22 09:20 97 08/04/22 07:00 98 08/04/22 03:10 99 08/03/22 20:30 98 08/03/22 19:22 97 08/03/22 18:00 97 08/03/22 17:14 08/03/22 16:59 08/03/22 16:33 97 08/03/22 15:20 98 08/03/22 14:10 08/03/22 13:42 100 Intake and Output 08/03/22 08/04/22 08/04/22 22:59 06:59 14:59 Other: Voiding Method Toilet Toilet # Voids 1 2 Weight 108.862 kg Results CBC & Chem 7: 08/04/22 06:26 08/04/22 06:26 Labs: Abnormal Lab Results - Last 24 Hours (Table) 08/03/22 08/03/22 08/04/22 Range/Units 14:22 14:22 06:18 RBC 4.11 L (4.30-5.90) m/uL Hgb 12.9 L (13.0-17.5) gm/dL Hct (39.0-53.0) % BUN 21 H (9-20) mg/dL Glucose 109 H (74-99) mg/dL POC Glucose (mg/dL) 142 H (70-110) mg/dL ALT 59 H (4-49) U/L Total Protein (6.3-8.2) g/dL 08/04/22 08/04/22 Range/Units 06:26 06:26 RBC 4.06 L (4.30-5.90) m/uL Hgb 12.6 L (13.0-17.5) gm/dL Hct 38.9 L (39.0-53.0) % BUN (9-20) mg/dL Glucose 145 H (74-99) mg/dL POC Glucose (mg/dL) (70-110) mg/dL ALT 51 H (4-49) U/L Total Protein 5.8 L (6.3-8.2) g/dL
--- NOTE | 2022-08-04 10:53 | P.DS ---
Providers Date of admission: 08/03/22 17:21 Attending physician: Edison Ching Consults: 08/03/22 17:21 Consult Physician Routine Consulting Provider: Rick Stock Consult Reason/Comments: aure Do you want consulting provider notified?: Yes Primary care physician: Tanesha Waltham Hospital Course: Patient is a 67-year-old male with history of atrial fibrillation coronary artery disease had a cardioversion done about 3-4 days ago for A. fib. Patient also had a cardiac catheterization patient does have history of coronary artery disease. The cardiac catheterization did not show any significant occlusive disease as per the patient patient just pain is pressure-like sensation midsternal [id number] in severity lasting for 5-15 minutes radiating to both arms preceded by episode of lightheadedness without any diaphoresis. Troponins are negative EKG did not show any acute ST-T wave changes. Chest x- ray is within normal limits. Patient has history of panic attacks for which patient is on Ativan on as-needed basis REVIEW OF SYSTEMS: CONSTITUTIONAL: No fever, no malaise, no fatigue. HEENT: No recent visual problems or hearing problems. Denied any sore throat. CARDIOVASCULAR: No orthopnea, PND, no palpitations, no syncope. PULMONARY: No shortness of breath, no cough, no hemoptysis. GASTROINTESTINAL: No diarrhea, no nausea, no vomiting, no abdominal pain. NEUROLOGICAL: No headaches, no weakness, no numbness. HEMATOLOGICAL: Denies any bleeding or petechiae. GENITOURINARY: Denies any burning micturition, frequency, or urgency. MUSCULOSKELETAL/RHEUMATOLOGICAL: Denies any joint pain, swelling, or any muscle pain. ENDOCRINE: Denies any polyuria or polydipsia. The rest of the 14-point review of systems is negative. PHYSICAL EXAMINATION: GENERAL: The patient is alert and oriented x3, not in any acute distress. Well developed, well nourished. HEENT: Pupils are round and equally reacting to light. EOMI. No scleral icterus. No conjunctival pallor. Normocephalic, atraumatic. No pharyngeal erythema. No thyromegaly. CARDIOVASCULAR: S1 and S2 present. No murmurs, rubs, or gallops. PULMONARY: Chest is clear to auscultation, no wheezing or crackles. ABDOMEN: Soft, nontender, nondistended, normoactive bowel sounds. No palpable organomegaly. MUSCULOSKELETAL: No joint swelling or deformity. EXTREMITIES: No cyanosis, clubbing, or pedal edema. NEUROLOGICAL: Gross neurological examination did not reveal any focal deficits. SKIN: No rashes. Assessment and plan -Chest pain: Patient is status post a. Cardioversion may have contributed to some inflammation of the cardiac muscle may be causing the chest pain or May be secondary to panic attacks and episodes of anxiety. Rule out a concurrent syndromes cardiology will evaluate the patient if cleared by cardiology patient will discharge to follow up with PCP to address the anxiety issues. -Proximal atrial fibrillation status post cardioversion presently sinus rhythm -COPD without any acute exacerbation patient is a former smoker -Type 2 diabetes mellitus -History of DVT in the past for which patient is on anticoagulation -Hyperlipidemia -Hypertension -Anxiety and panic attacks If cleared by cardiology patient will be discharged today to follow with PCP Patient Condition at Discharge: Fair Plan - Discharge Summary New Discharge Prescriptions: Continue allopurinoL [Zyloprim] 100 mg PO DAILY@0800 Montelukast [Singulair] 10 mg PO HS Terazosin HCl 5 mg PO HS oxyCODONE HCL/ACETAMINOPHEN [oxyCODONE HCL/ACETAMINOPHEN 7.5-325] 1 tab PO Q6H PRN PRN Reason: Pain Tamsulosin HCl [Flomax] 0.4 mg PO DAILY LORazepam [Ativan] 0.5 mg PO DAILY PRN PRN Reason: panic attacks Baclofen 10 mg PO TID@0800,1600,0000 Albuterol Inhaler [Ventolin Hfa Inhaler] 2 puff INHALATION RT-Q4H PRN PRN Reason: Shortness Of Breath Amiodarone [Cordarone] See Taper PO DIRECTED Metoprolol Tartrate [Lopressor] 25 mg PO Q12H Gabapentin [Neurontin] 200 mg PO TID@0800,1600,0000 Apixaban [Eliquis] 5 mg PO BID@0800,1700 Insulin Detemir [Levemir Flextouch Pen] 20 - 25 units SQ HS Budesonide/Formoterol Fumarate [Symbicort 160-4.5 Mcg Inhaler] 2 puff INHALATION RT-BID amLODIPine [Norvasc] 5 mg PO DAILY@0800 Aspirin EC [Ecotrin Low Dose] 81 mg PO DAILY@0800 Atorvastatin [Lipitor] 40 mg PO HS@1999 Discharge Medication List allopurinoL [Zyloprim] 100 mg PO DAILY@0800 08/08/14 [History] Montelukast [Singulair] 10 mg PO HS 10/21/17 [History] Terazosin HCl 5 mg PO HS 02/18/20 [History] Apixaban [Eliquis] 5 mg PO BID@0800,1700 07/15/20 [History] Insulin Detemir [Levemir Flextouch Pen] 20 - 25 units SQ HS 07/15/20 [History] oxyCODONE HCL/ACETAMINOPHEN [oxyCODONE HCL/ACETAMINOPHEN 7.5-325] 1 tab PO Q6H PRN 11/01/20 [History] Budesonide/Formoterol Fumarate [Symbicort 160-4.5 Mcg Inhaler] 2 puff INHALATION RT-BID 02/06/22 [History] Baclofen 10 mg PO TID@0800,1600,0000 07/25/22 [History] LORazepam [Ativan] 0.5 mg PO DAILY PRN 07/25/22 [History] Tamsulosin HCl [Flomax] 0.4 mg PO DAILY 07/25/22 [History] Albuterol Inhaler [Ventolin Hfa Inhaler] 2 puff INHALATION RT-Q4H PRN 08/03/22 [History] Amiodarone [Cordarone] See Taper PO DIRECTED 08/03/22 [History] Aspirin EC [Ecotrin Low Dose] 81 mg PO DAILY@0800 08/03/22 [History] Atorvastatin [Lipitor] 40 mg PO HS@199908/03/22 [History] Gabapentin [Neurontin] 200 mg PO TID@0800,1600,0000 08/03/22 [History] Metoprolol Tartrate [Lopressor] 25 mg PO Q12H 08/03/22 [History] amLODIPine [Norvasc] 5 mg PO DAILY@0800 08/03/22 [History] Follow up Appointment(s)/Referral(s): Tanesha Long MD [Primary Care Provider] - 3 Days
--- NOTE | 2022-08-04 11:10 | P.CRDCN ---
History of Present Illness Consult date: 08/04/22 Chief complaint: Chest pain History of present illness: The patient is a pleasant 67-year-old gentleman with CAD and known chronic total occlusion of the RCA based on heart catheterization in January 2023 as well as hypertension and dyslipidemia and persistent atrial fibrillation status post cardioversion few days ago presented to the hospital complaining of chest discomfort. The patient normally sees a family service worker in [facility]. This is a second admission with a chest discomfort. The discomfort is clearly atypical. It's mostly during the night when he is not very active. No shortness of breath and no dizziness or lightheadedness and no feeling of heart racing or fluttering and no presyncope or syncope. He underwent further workup including EKG showing sinus mechanism was low voltage QRS and cardiac enzymes came in to be unremarkable. Currently he is on AV anthony shirley agents and he is on oral anticoagulation has been maintaining normal sinus mechanism The examination is remarkable for regular rhythm with clear breathing sounds bilaterally and no lower extremity edema noted Assessment Atypical versus noncardiac chest pain CAD with known chronic total occlusion of the RCA Hypertension Dyslipidemia Paroxysmal atrial fibrillation Plan Acute coronary event was ruled out Continue the current medical regimen Follow-up with the patient on when necessary case Past Medical History Past Medical History: Atrial Fibrillation, COPD, Diabetes Mellitus, Deep Vein Thrombosis (DVT), Hyperlipidemia, Hypertension, Osteoarthritis (OA), Prostate Disorder, Pulmonary Embolus (PE), Renal Disease, Skin Disorder Additional Past Medical History / Comment(s): "small heart attacks", gout, kidney stones. back pain. kidney function 40%, hypokalemia; wound Rt buttock - using sitz baths cardioversion 08/02/22 History of Any Multi-Drug Resistant Organisms: None Reported Past Surgical History: Cholecystectomy, Heart Catheterization, Orthopedic Surgery Additional Past Surgical History / Comment(s): Cholecystectomy with hernia repair , Bilateral cataract surgery, left knee arthroscopy, ORIF left knee open reduction and internal fixation after injury, pain procedures Past Anesthesia/Blood Transfusion Reactions: No Reported Reaction Past Psychological History: No Psychological Hx Reported Additional Psychological History / Comment(s): claustrophobic Smoking Status: Former smoker Past Alcohol Use History: None Reported Additional Past Alcohol Use History / Comment(s): Patient is smoker 1 ppd since he was 11 years of age. Past Drug Use History: None Reported - Past Family History Father History Unknown: Yes Family Medical History: Cancer Additional Family Medical History / Comment(s): . Mother History Unknown: Yes Family Medical History: Cancer Additional Family Medical History / Comment(s): . Brother(s) Family Medical History: No Reported History Additional Family Medical History / Comment(s): from overdose Sister(s) Family Medical History: No Reported History Additional Family Medical History / Comment(s): Patient has 2 sisters and mother from drug overdose after chronic pain syndrome from low back pain. Medications and Allergies Home Medications Medication Instructions Recorded Confirmed Type allopurinoL [Zyloprim] 100 mg PO DAILY@0800 08/08/14 08/03/22 History Montelukast [Singulair] 10 mg PO HS 10/21/17 08/03/22 History Terazosin HCl 5 mg PO HS 02/18/20 08/03/22 History Apixaban [Eliquis] 5 mg PO BID@0800,1700 07/15/20 08/03/22 History Insulin Detemir [Levemir Flextouch 20 - 25 units SQ HS 07/15/20 08/03/22 History Pen] oxyCODONE HCL/ACETAMINOPHEN 1 tab PO Q6H PRN 11/01/20 08/03/22 History [oxyCODONE HCL/ACETAMINOPHEN 7.5-325] Budesonide/Formoterol Fumarate 2 puff INHALATION RT-BID 02/06/22 08/03/22 History [Symbicort 160-4.5 Mcg Inhaler] Baclofen 10 mg PO TID@0800,1600,0000 07/25/22 08/03/22 History LORazepam [Ativan] 0.5 mg PO DAILY PRN 07/25/22 08/03/22 History Tamsulosin HCl [Flomax] 0.4 mg PO DAILY 07/25/22 08/03/22 History Albuterol Inhaler [Ventolin Hfa 2 puff INHALATION RT-Q4H PRN 08/03/22 08/03/22 History Inhaler] Amiodarone [Cordarone] See Taper PO DIRECTED 08/03/22 08/03/22 History Aspirin EC [Ecotrin Low Dose] 81 mg PO DAILY@0800 08/03/22 08/03/22 History Atorvastatin [Lipitor] 40 mg PO HS@199908/03/22 08/03/22 History Gabapentin [Neurontin] 200 mg PO TID@0800,1600,0000 08/03/22 08/03/22 History Metoprolol Tartrate [Lopressor] 25 mg PO Q12H 08/03/22 08/03/22 History amLODIPine [Norvasc] 5 mg PO DAILY@0800 08/03/22 08/03/22 History Allergies Allergy/AdvReac Type Severity Reaction Status Date / Time insulin glargine AdvReac Diarrhea Verified 08/03/22 19:06 [From Lantus U-100 Insulin] Physical Exam Vitals: Vital Signs Temp Pulse Pulse Pulse Resp BP BP 08/04/22 09:20 08/04/22 07:00 98.2 F 59 L 16 147/72 08/04/22 03:10 98.5 F 63 15 130/70 08/03/22 20:30 98.3 F 66 18 145/74 08/03/22 19:22 97.2 F L 58 L 16 137/68 08/03/22 18:00 98.0 F 68 20 130/58 08/03/22 17:14 58 L 08/03/22 16:59 55 L 08/03/22 16:33 97.8 F 58 L 18 126/83 08/03/22 15:20 57 L 16 140/68 08/03/22 14:10 58 L 08/03/22 13:42 98 F 59 L 18 157/80 Pulse Ox 08/04/22 09:20 97 08/04/22 07:00 98 08/04/22 03:10 99 08/03/22 20:30 98 08/03/22 19:22 97 08/03/22 18:00 97 08/03/22 17:14 08/03/22 16:59 08/03/22 16:33 97 08/03/22 15:20 98 08/03/22 14:10 08/03/22 13:42 100 Intake and Output 08/03/22 08/04/22 08/04/22 22:59 06:59 14:59 Other: Voiding Method Toilet Toilet # Voids 1 2 Weight 108.862 kg Results 08/04/22 06:26 08/04/22 06:26 Cardiac Enzymes 08/03/22 08/03/22 08/03/22 Range/Units 14:22 14:22 18:01 AST 51 (17-59) U/L Troponin I <0.012 0.012 (0.000-0.034) ng/mL 08/03/22 08/04/22 Range/Units 21:23 06:26 AST 42 (17-59) U/L Troponin I 0.017 (0.000-0.034) ng/mL Coagulation 08/03/22 Range/Units 14:22 PT 9.9 (9.0-12.0) sec APTT 26.7 (22.0-30.0) sec CBC 08/03/22 08/04/22 Range/Units 14:22 06:26 WBC 6.5 6.5 (3.8-10.6) k/uL RBC 4.11 L 4.06 L (4.30-5.90) m/uL Hgb 12.9 L 12.6 L (13.0-17.5) gm/dL Hct 39.6 38.9 L (39.0-53.0) % Plt Count 165 151 (150-450) k/uL Comprehensive Metabolic Panel 08/03/22 08/04/22 Range/Units 14:22 06:26 Sodium 137 137 (137-145) mmol/L Potassium 4.3 4.3 (3.5-5.1) mmol/L Chloride 105 103 (98-107) mmol/L Carbon Dioxide 24 29 (22-30) mmol/L BUN 21 H 17 (9-20) mg/dL Creatinine 1.10 1.12 (0.66-1.25) mg/dL Glucose 109 H 145 H (74-99) mg/dL Calcium 9.1 8.7 (8.4-10.2) mg/dL AST 51 42 (17-59) U/L ALT 59 H 51 H (4-49) U/L Alkaline Phosphatase 84 76 (38-126) U/L Total Protein 6.5 5.8 L (6.3-8.2) g/dL Albumin 4.0 3.5 (3.5-5.0) g/dL Current Medications Generic Name Dose Route Start Last Admin Trade Name Freq PRN Reason Stop Dose Admin Acetaminophen 650 mg 08/03/22 17:21 Acetaminophen Tab 325 Mg Tab PO Q6HR PRN Mild Pain or Fever > 100.5 Albuterol Sulfate 2.5 mg 08/03/22 21:15 Albuterol Nebulized 2.5 Mg/3 Ml INHALATION RT-Q4H PRN Shortness Of Breath Allopurinol 100 mg 08/04/22 08:00 Allopurinol 100 Mg Tab PO DAILY@0800 [facility] Amlodipine Besylate 5 mg 08/04/22 08:00 Amlodipine 5 Mg Tab PO DAILY@0800 [facility] Apixaban 5 mg 08/04/22 09:00 Apixaban 5 Mg Tab PO BID [facility] Protocol Aspirin 81 mg 08/04/22 08:00 Aspirin 81 Mg PO DAILY@0800 [facility] Atorvastatin Calcium 40 mg 08/03/22 21:20 Atorvastatin 40 Mg Tab PO HS [facility] Baclofen 10 mg 08/04/22 00:00 08/03/22 22:19 Baclofen 10 Mg Tab PO 10 mg TID JOSE Administration Budesonide/Formoterol Fumarate 2 puff 08/04/22 08:00 08/04/22 09:20 Symbicort 160-4.5 Mcg Inhaler INHALATION 2 puff RT-BID JOSE Administration Dextrose/Water 25 ml 08/04/22 00:51 Dextrose 50% Syringe 50 Ml IVP PER PROTOCOL PRN Hypoglycemia Protocol Dextrose/Water 50 ml 08/04/22 00:51 Dextrose 50% Syringe 50 Ml IVP PER PROTOCOL PRN Hypoglycemia Protocol Doxazosin Mesylate 4 mg 08/03/22 21:30 08/03/22 22:18 Doxazosin 4 Mg Tab PO 4 mg HS [facility] Administration Gabapentin 200 mg 08/04/22 00:00 08/03/22 22:19 Gabapentin 100 Mg Cap PO 200 mg TID JOSE Administration Insulin Aspart 0 unit 08/04/22 07:30 08/04/22 06:22 Insulin Aspart (Novolog) 100 Unit/Ml Vial SQ Not Given ACHS [facility] Protocol Lorazepam 0.5 mg 08/03/22 21:15 Lorazepam 0.5 Mg Tab PO DAILY PRN panic attacks Metoprolol Tartrate 25 mg 08/03/22 21:15 08/03/22 22:19 Metoprolol Tartrate 25 Mg Tab PO 25 mg Q12H JOSE Administration Montelukast Sodium 10 mg 08/03/22 21:30 08/03/22 22:19 Montelukast 10 Mg Tab PO 10 mg HS JOSE Administration Morphine Sulfate 4 mg 08/03/22 17:21 Morphine Sulfate 4 Mg/Ml Syringe IV Q4HR PRN Severe Pain (Scale 7 to 10) Naloxone HCl 0.2 mg 08/03/22 17:21 Naloxone 0.4 Mg/Ml 1 Ml Vial IV Q2M PRN Opioid Reversal Ondansetron HCl 4 mg 08/03/22 17:21 Ondansetron 4 Mg/2 Ml Vial IVP Q8HR PRN Nausea And Vomiting Oxycodone/Acetaminophen 1 each 08/03/22 21:15 Oxycodone-Apap 7.5-325mg 1 Each Tab PO Q6H PRN Pain Tamsulosin HCl 0.4 mg 08/04/22 09:00 Tamsulosin 0.4 Mg Cap.Er.24h PO DAILY JOSE Intake and Output 08/03/22 08/04/22 08/04/22 22:59 06:59 14:59 Other: Voiding Method Toilet Toilet # Voids 1 2 Weight 108.862 kg 08/04/22 06:26 08/04/22 06:26
[2022-08-04 12:06] LABS: Glucose,Whole Blood 153 mg/dL (70-110)
[2022-08-04] MEDS: BACLOFEN 10 MG TAB PO SCH (12:24)
[2022-08-04] MEDS: METOPROLOL TARTRATE 25 MG TAB PO SCH (12:24)
[2022-08-04] MEDS: GABAPENTIN 100 MG CAP PO SCH (12:28)
[2022-08-04 12:30] VITALS: BP 137/70; PULSE 63; RESP 18
== END 2022-08-04 14:23 | disposition home or self-care (01) ==
LOC: EC 13:39 → 6NMEDSUR 17:21
PROVIDERS: ADMIT Hospitalist; ATTEND Hospitalist
DX: R07.89 Other chest pain (principal); I48.0 Paroxysmal atrial fibrillation; I25.82 Chronic total occlusion of coronary artery; I25.10 Atherosclerotic heart disease of native coronary artery without angina pectoris; E11.9 Type 2 diabetes mellitus without complications; J44.9 Chronic obstructive pulmonary disease, unspecified; E78.5 Hyperlipidemia, unspecified; I10 Essential (primary) hypertension; R42 Dizziness and giddiness; F41.0 Panic disorder [episodic paroxysmal anxiety]; F41.9 Anxiety disorder, unspecified; M10.9 Gout, unspecified; L98.9 Disorder of the skin and subcutaneous tissue, unspecified; M19.90 Unspecified osteoarthritis, unspecified site; N42.9 Disorder of prostate, unspecified; F40.240 Claustrophobia; Z79.01 Long term (current) use of anticoagulants; Z79.4 Long term (current) use of insulin; Z79.51 Long term (current) use of inhaled steroids; Z79.82 Long term (current) use of aspirin; Z79.899 Other long term (current) drug therapy; Z88.8 Allergy status to other drugs, medicaments and biological substances; Z86.718 Personal history of other venous thrombosis and embolism; Z87.442 Personal history of urinary calculi; Z87.891 Personal history of nicotine dependence; Z86.711 Personal history of pulmonary embolism; Z98.42 Cataract extraction status, left eye; Z98.41 Cataract extraction status, right eye; Z98.890 Other specified postprocedural states; Z90.49 Acquired absence of other specified parts of digestive tract; Z81.4 Family history of other substance abuse and dependence; Z80.9 Family history of malignant neoplasm, unspecified
CPT/HCPCS: 96360; 99285; 36415; 94640 ×2; 94760; 93005; 85379; 83880; 80053 ×2; 83690; 83735 ×2; 84100; 84484; 85025 ×2; 85610; 85730; 71045; G0378 ×2

== ENCOUNTER 2022-08-13 16:48 | Emergency (ER) | payer MEDICARE, OTHER ==
[2022-08-13 16:59] VITALS: BP 148/77; PULSE 68; RESP 24; TEMP 98
[2022-08-13 17:38] LABS: Basophils % (A) 0 %; Eosinophils # (A) 0.1 k/uL (0-0.7); Eosinophils % (A) 1 %; HCT 41.8 % (39.0-53.0); Lymphocytes # (A) 1.5 k/uL (1.0-4.8); Lymphocytes % (A) 22 %; MCH 32.2 pg (25.0-35.0); MCHC 33.6 g/dL (31.0-37.0); MCV 95.9 fL (80.0-100.0); Mean Platelet Volume 7.2; Monocytes # (A) 0.5 k/uL (0-1.0); Monocytes % (A) 7 %; Neutrophils # (A) 4.8 k/uL (1.3-7.7); Neutrophils % (A) 69 %; Platelet Count 226 k/uL (150-450); RBC 4.36 m/uL (4.30-5.90); RDW 13.7 % (11.5-15.5)
[2022-08-13 17:44] LABS: Partial Thromboplastin Time 26.6 sec (22.0-30.0); Prothrombin Time 10.2 sec (9.0-12.0)
--- NOTE | 2022-08-13 18:03 | XR ---
EXAMINATION TYPE: XR chest 2V DATE OF EXAM: 08/13/2022 COMPARISON: 08/03/22 HISTORY: Shortness of breath TECHNIQUE: Frontal and lateral views of the chest are obtained. FINDINGS: Scattered senescent parenchymal changes noted. Hyperinflation compatible with COPD. No evidence for infiltrate. No evidence for atelectasis. Heart size is stable. Mediastinal structures are stable and grossly unremarkable. No evidence for hilar prominence. Degenerative changes dorsal spine. IMPRESSION: 1. No evidence for acute pulmonary disease.
[2022-08-13] MEDS ORDERED: LORazepam 2 MG/ML INJ IV STA ×2 (18:12→19:14)
--- NOTE | 2022-08-13 18:26 | ED ---
General Adult HPI - General Chief complaint: Shortness of Breath Stated complaint: SOB Time Seen by Provider: 08/13/22 17:55 Source: patient, RN notes reviewed, old records reviewed Mode of arrival: wheelchair Limitations: no limitations - History of Present Illness Initial comments: This is a 67-year-old male who presents emergency department stating that he is having a panic attack. Patient states that he has atrial fibrillation over the last 5 years and he has had panic attacks ever since he got atrial fibrillation. Patient states this morning he had a cardioversion and he went home and started having a panic attack and felt like he couldn't briefly came in immediately. Patient is pacing the room and into the room and he states he has no chest pain no recent fever chills he can get his breath is almost walk around the room but if he sits down he feels as though he can't breathe. Patient denies any abdominal pain patient denies any nausea or vomiting. Patient denies any back pain. Patient denies any headache patient denies lightheadedness patient denies any numbness weakness. - Related Data Home Medications Medication Instructions Recorded Confirmed allopurinoL [Zyloprim] 100 mg PO DAILY@0800 08/08/14 08/03/22 Montelukast [Singulair] 10 mg PO HS 10/21/17 08/03/22 Terazosin HCl 5 mg PO HS 02/18/20 08/03/22 Apixaban [Eliquis] 5 mg PO BID@0800,1700 07/15/20 08/03/22 Insulin Detemir [Levemir Flextouch 20 - 25 units SQ HS 07/15/20 08/03/22 Pen] oxyCODONE HCL/ACETAMINOPHEN 1 tab PO Q6H PRN 11/01/20 08/03/22 [oxyCODONE HCL/ACETAMINOPHEN 7.5-325] Budesonide/Formoterol Fumarate 2 puff INHALATION RT-BID 02/06/22 08/03/22 [Symbicort 160-4.5 Mcg Inhaler] Baclofen 10 mg PO TID@0800,1600,0000 07/25/22 08/03/22 LORazepam [Ativan] 0.5 mg PO DAILY PRN 07/25/22 08/03/22 Tamsulosin HCl [Flomax] 0.4 mg PO DAILY 07/25/22 08/03/22 Albuterol Inhaler [Ventolin Hfa 2 puff INHALATION RT-Q4H PRN 08/03/22 08/03/22 Inhaler] Amiodarone [Cordarone] See Taper PO DIRECTED 08/03/22 08/03/22 Aspirin EC [Ecotrin Low Dose] 81 mg PO DAILY@0800 08/03/22 08/03/22 Atorvastatin [Lipitor] 40 mg PO HS@2000 08/03/22 08/03/22 Gabapentin [Neurontin] 200 mg PO TID@0800,1600,0000 08/03/22 08/03/22 Metoprolol Tartrate [Lopressor] 25 mg PO Q12H 08/03/22 08/03/22 amLODIPine [Norvasc] 5 mg PO DAILY@0800 08/03/22 08/03/22 Allergies Allergy/AdvReac Type Severity Reaction Status Date / Time insulin glargine AdvReac Diarrhea Verified 08/03/22 19:06 [From Lantus U-100 Insulin] Review of Systems ROS Statement: Those systems with pertinent positive or pertinent negative responses have been documented in the HPI. ROS Other: All systems not noted in ROS Statement are negative. Past Medical History Past Medical History: Atrial Fibrillation, COPD, Diabetes Mellitus, Deep Vein Thrombosis (DVT), Hyperlipidemia, Hypertension, Osteoarthritis (OA), Prostate Disorder, Pulmonary Embolus (PE), Renal Disease, Skin Disorder Additional Past Medical History / Comment(s): "small heart attacks", gout, k idney stones. back pain. kidney function 40%, hypokalemia; wound Rt buttock - using sitz baths cardioversion 08/02/22 History of Any Multi-Drug Resistant Organisms: None Reported Past Surgical History: Cholecystectomy, Heart Catheterization, Orthopedic Surgery Additional Past Surgical History / Comment(s): Cholecystectomy with hernia repair , Bilateral cataract surgery, left knee arthroscopy, ORIF left knee open reduction and internal fixation after injury, pain procedures Past Anesthesia/Blood Transfusion Reactions: No Reported Reaction Past Psychological History: No Psychological Hx Reported Smoking Status: Former smoker Past Alcohol Use History: None Reported Past Drug Use History: None Reported - Past Family History Father History Unknown: Yes Family Medical History: Cancer Additional Family Medical History / Comment(s): . Mother History Unknown: Yes Family Medical History: Cancer Additional Family Medical History / Comment(s): . Brother(s) Family Medical History: No Reported History Additional Family Medical History / Comment(s): from overdose Sister(s) Family Medical History: No Reported History Additional Family Medical History / Comment(s): Patient has 2 sisters and mother from drug overdose after chronic pain syndrome from low back pain. General Exam - General Exam Comments Initial Comments: GENERAL: Patient is well-developed and well-nourished. Patient is nontoxic and well- hydrated and is in mild distress. ENT: Neck is soft and supple. No significant lymphadenopathy is noted. Oropharynx is clear. Moist mucous membranes. Neck has full range of motion without eliciting any pain. EYES: The sclera were anicteric and conjunctiva were pink and moist. Extraocular movements were intact and pupils were equal round and reactive to light. Eyelids were unremarkable. PULMONARY: Unlabored respirations. Good breath sounds bilaterally. No audible rales rhonchi or wheezing was noted. CARDIOVASCULAR: There is a regular rate and rhythm without any murmurs gallops or rubs. ABDOMEN: Soft and nontender with normal bowel sounds. SKIN: Skin is clear with no lesions or rashes and otherwise unremarkable. NEUROLOGIC: Patient is alert and oriented x3. Cranial nerves II through XII are grossly intact. Motor and sensory are also intact. Normal speech, volume and content. Symmetrical smile. MUSCULOSKELETAL: Normal extremities with adequate strength and full range of motion. No lower extremity swelling or edema. No calf tenderness. LYMPHATICS: No significant lymphadenopathy is noted PSYCHIATRIC: Patient is mildly anxious and pacing the room Limitations: no limitations Course Vital Signs 08/13/22 16:55 Temperature 98 F Pulse Rate 68 Respiratory 24 Rate Blood Pressure 148/77 O2 Sat by Pulse 100 Oximetry Medical Decision Making - Medical Decision Making EKG as interpreted by myself shows a sinus rhythm at 67 bpm WA interval 295 170 QTC Is 420 QTC Is 439. Patient's EKG Shows No ST Segment Elevation or Depression Was pt. sent in by a medical professional or institution (, PA, HEAD START TEACHER, urgent care, hospital, or [facility]...) When possible be specific @ -No Did you speak to anyone other than the patient for history (EMS, parent, family, police, friend...)? What history was obtained from this source @ -No Did you review nursing and triage notes (agree or disagree)? Why? @ -I reviewed and agree with nursing and triage notes Were old charts reviewed (outside hosp., previous admission, EMS record, old EKG, old radiological studies, urgent care reports/EKG's, [facility] records)? Report findings @ -I reviewed prior lab work in prior EKGs this patient Differential Diagnosis (chest pain, altered mental status, abdominal pain women, abdominal pain men, vaginal bleeding, weakness, fever, dyspnea, syncope, headache, dizziness, GI bleed, back pain, seizure, CVA, palpatations, mental health, musculoskeletal)? @ -Differential Dyspnea: Coronary syndrome, arrhythmia, tamponade, asthma, COPD, pulmonary embolism, pneumonia, pneumothorax, pulmonary effusion, anaphylaxis, diabetic ketoacidosis, anxiety, flailed chest, pulmonary contusion, diaphragmatic rupture, anemia, neuromuscular, this is not meant to be an all-inclusive list. EKG interpreted by me (3pts min.). @ -As above X-rays interpreted by me (1pt min.). @ -Chest x-ray shows no acute abnormality CT interpreted by me (1pt min.). @ -None done U/S interpreted by me (1pt. min.). @ -None done What testing was considered but not performed or refused? (CT, X-rays, U/S, labs)? Why? @ -None What meds were considered but not given or refused? Why? @ -None Did you discuss the management of the patient with other professionals (professionals i.e. , PA, HEAD START TEACHER, lab, RT, psych nurse, social media editor, manager social services, teacher, commercial loan collection officer, pillowcase turner)? Give summary @ -No Was smoking cessation discussed for >3mins.? @ -No Was critical care preformed (if so, how long)? @ -No Were there social determinants of health that impacted care today? How? (Homelessness, low income, unemployed, alcoholism, drug addiction, transportation, low edu. Level, literacy, decrease access to med. care, fpc, rehab)? @ -No Was there de-escalation of care discussed even if they declined (Discuss DNR or withdrawal of care, Hospice)? DNR status @ -No What co-morbidities impacted this encounter? (DM, HTN, Smoking, COPD, CAD, Cancer, CVA, ARF, Chemo, Hep., AIDS, mental health diagnosis, sleep apnea, morbid obesity)? @ -None Was patient admitted / discharged? Hospital course, mention meds given and route, prescriptions, significant lab abnormalities, going to OR and other pertinent info. @ -Patient was given an initial dose of Ativan and they reduce his anxiety about 50% patient stated he stated he no longer short of breath or having chest discomfort he states he is been having these panic attacks and has been recently put on Zoloft. Patient is requesting one more Ativan and then he thinks she can go home and follow-up with his doctor tomorrow. Patient was given a second Ativan. He was feeling back to his baseline and will follow-up with his primary medical care doctor Undiagnosed new problem with uncertain prognosis? @ -No Drug Therapy requiring intensive monitoring for toxicity (Heparin, Nitro, Insulin, Cardizem)? @ -No Were any procedures done? @ -No Diagnosis/symptom? @ -Anxiety Acute, or Chronic, or Acute on Chronic? @ -Acute Uncomplicated (without systemic symptoms) or Complicated (systemic symptoms)? @ -Uncomplicated Side effects of treatment? @ -No Exacerbation, Progression, or Severe Exacerbation? @ -No Poses a threat to life or bodily function? How? (Chest pain, USA, VT, pneumonia, PE, COPD, DKA, ARF, appy, cholecystitis, CVA, Diverticulitis, Homicidal, Suicidal, threat to staff... and all critical care pts) @ -No - Lab Data Result diagrams: 08/13/22 17:17 08/13/22 17:17 Lab Results 08/13/22 08/13/22 08/13/22 Range/Units 17:17 17:17 17:17 WBC 7.0 (3.8-10.6) k/uL RBC 4.36 (4.30-5.90) m/uL Hgb 14.0 (13.0-17.5) gm/dL Hct 41.8 (39.0-53.0) % MCV 95.9 (80.0-100.0) fL MCH 32.2 (25.0-35.0) pg MCHC 33.6 (31.0-37.0) g/dL RDW 13.7 (11.5-15.5) % Plt Count 226 (150-450) k/uL MPV 7.2 Neutrophils % 69 % Lymphocytes % 22 % Monocytes % 7 % Eosinophils % 1 % Basophils % 0 % Neutrophils # 4.8 (1.3-7.7) k/uL Lymphocytes # 1.5 (1.0-4.8) k/uL Monocytes # 0.5 (0-1.0) k/uL Eosinophils # 0.1 (0-0.7) k/uL Basophils # 0.0 (0-0.2) k/uL PT 10.2 (9.0-12.0) sec INR 1.0 (<1.2) APTT 26.6 (22.0-30.0) sec Sodium 134 L (137-145) mmol/L Potassium 3.8 (3.5-5.1) mmol/L Chloride 97 L (98-107) mmol/L Carbon Dioxide 25 (22-30) mmol/L Anion Gap 12 mmol/L BUN 30 H (9-20) mg/dL Creatinine 1.27 H (0.66-1.25) mg/dL Est GFR (CKD-EPI)AfAm 68 (>60 ml/min/1.73 sqM) Est GFR (CKD-EPI)NonAf 59 (>60 ml/min/1.73 sqM) Glucose 181 H (74-99) mg/dL Calcium 9.6 (8.4-10.2) mg/dL Total Bilirubin 0.6 (0.2-1.3) mg/dL AST 33 (17-59) U/L ALT 27 (4-49) U/L Alkaline Phosphatase 99 (38-126) U/L Troponin I (0.000-0.034) ng/mL Total Protein 6.7 (6.3-8.2) g/dL Albumin 4.2 (3.5-5.0) g/dL 08/13/22 Range/Units 17:17 WBC (3.8-10.6) k/uL RBC (4.30-5.90) m/uL Hgb (13.0-17.5) gm/dL Hct (39.0-53.0) % MCV (80.0-100.0) fL MCH (25.0-35.0) pg MCHC (31.0-37.0) g/dL RDW (11.5-15.5) % Plt Count (150-450) k/uL MPV Neutrophils % % Lymphocytes % % Monocytes % % Eosinophils % % Basophils % % Neutrophils # (1.3-7.7) k/uL Lymphocytes # (1.0-4.8) k/uL Monocytes # (0-1.0) k/uL Eosinophils # (0-0.7) k/uL Basophils # (0-0.2) k/uL PT (9.0-12.0) sec INR (<1.2) APTT (22.0-30.0) sec Sodium (137-145) mmol/L Potassium (3.5-5.1) mmol/L Chloride (98-107) mmol/L Carbon Dioxide (22-30) mmol/L Anion Gap mmol/L BUN (9-20) mg/dL Creatinine (0.66-1.25) mg/dL Est GFR (CKD-EPI)AfAm (>60 ml/min/1.73 sqM) Est GFR (CKD-EPI)NonAf (>60 ml/min/1.73 sqM) Glucose (74-99) mg/dL Calcium (8.4-10.2) mg/dL Total Bilirubin (0.2-1.3) mg/dL AST (17-59) U/L ALT (4-49) U/L Alkaline Phosphatase (38-126) U/L Troponin I <0.012 (0.000-0.034) ng/mL Total Protein (6.3-8.2) g/dL Albumin (3.5-5.0) g/dL Disposition Clinical Impression: Anxiety attack Disposition: HOME SELF-CARE Instructions (If sedation given, give patient instructions): Anxiety (ED), Panic Disorder (ED) Additional Instructions: Patient should follow-up with primary medical care doctor for medications for acute anxiety Is patient prescribed a controlled substance at d/c from ED?: No Referrals: Tanesha Long MD [Primary Care Provider] - 1-2 days Time of Disposition: 19:32
[2022-08-13 18:34] LABS: Glucose 181 mg/dL (74-99); Total Protein 6.7 g/dL (6.3-8.2)
[2022-08-13 18:35] LABS: ALT 27 U/L (4-49); AST 33 U/L (17-59); African American GFR (CKD) 68 (>60 ml/min/1.73 sqM); Albumin 4.2 g/dL (3.5-5.0); Alkaline Phosphatase 99 U/L (38-126); Anion Gap 12 mmol/L; Blood Urea Nitrogen 30 mg/dL (9-20); Calcium 9.6 mg/dL (8.4-10.2); Carbon Dioxide 25 mmol/L (22-30); Chloride 97 mmol/L (98-107); Non-African American GFR(CKD) 59 (>60 ml/min/1.73 sqM); Potassium 3.8 mmol/L (3.5-5.1); Sodium 134 mmol/L (137-145); Total Bilirubin 0.6 mg/dL (0.2-1.3)
== END 2022-08-13 20:10 | disposition home or self-care (01) ==
LOC: EC 16:48
DX: F41.9 Anxiety disorder, unspecified (principal); E11.9 Type 2 diabetes mellitus without complications; I10 Essential (primary) hypertension; J44.9 Chronic obstructive pulmonary disease, unspecified; E78.5 Hyperlipidemia, unspecified; I48.91 Unspecified atrial fibrillation; M10.9 Gout, unspecified; M19.90 Unspecified osteoarthritis, unspecified site; Z79.01 Long term (current) use of anticoagulants; Z79.51 Long term (current) use of inhaled steroids; Z79.82 Long term (current) use of aspirin; Z79.4 Long term (current) use of insulin; Z79.899 Other long term (current) drug therapy; Z86.711 Personal history of pulmonary embolism; Z86.718 Personal history of other venous thrombosis and embolism; Z87.891 Personal history of nicotine dependence; Z88.8 Allergy status to other drugs, medicaments and biological substances
CPT/HCPCS: 36415; 93005; 80053; 84484; 85025; 85610; 85730; 71046; 99285; 96374; 96376; J2060

== ENCOUNTER 2022-11-01 11:18 | Observation (INO) | payer MEDICARE, OTHER ==
[2022-11-01] MEDS ORDERED: ASPIRIN 81 MG PO STA (11:31)
--- NOTE | 2022-11-01 11:31 | ED ---
General Adult HPI - General Chief complaint: Chest Pain Stated complaint: Chest Pain, vomiting Time Seen by Provider: 11/01/22 11:23 Source: patient, RN notes reviewed Mode of arrival: wheelchair Limitations: no limitations - History of Present Illness Initial comments: Patient is a pleasant 67-year-old male presents emergency department with concern for chest discomfort. Patient did have some nausea and vomiting for around 5 AM. Patient started with chest discomfort around 9 AM. Patient does have history of similar symptoms previously associated with atrial fibrillation. Patient did have ablation done a few weeks ago. Patient has felt a little bit sweaty and short of breath. Discomfort feels a pressure is rated 6 out of 10 in the sternal region. Patient does have associated palpitations. Patient is on eliquis with history of atrial fibrillation - Related Data Home Medications Medication Instructions Recorded Confirmed allopurinoL [Zyloprim] 100 mg PO DAILY@0800 08/08/14 08/03/22 Montelukast [Singulair] 10 mg PO HS 10/21/17 08/03/22 Terazosin HCl 5 mg PO HS 02/18/20 08/03/22 Apixaban [Eliquis] 5 mg PO BID@0800,1700 07/15/20 08/03/22 Insulin Detemir [Levemir Flextouch 20 - 25 units SQ HS 07/15/20 08/03/22 Pen] oxyCODONE HCL/ACETAMINOPHEN 1 tab PO Q6H PRN 11/01/20 08/03/22 [oxyCODONE HCL/ACETAMINOPHEN 7.5-325] Budesonide/Formoterol Fumarate 2 puff INHALATION RT-BID 02/06/22 08/03/22 [Symbicort 160-4.5 Mcg Inhaler] Baclofen 10 mg PO TID@0800,1600,0000 07/25/22 08/03/22 LORazepam [Ativan] 0.5 mg PO DAILY PRN 07/25/22 08/03/22 Tamsulosin HCl [Flomax] 0.4 mg PO DAILY 07/25/22 08/03/22 Albuterol Inhaler [Ventolin Hfa 2 puff INHALATION RT-Q4H PRN 08/03/22 08/03/22 Inhaler] Amiodarone [Cordarone] See Taper PO DIRECTED 08/03/22 08/03/22 Aspirin EC [Ecotrin Low Dose] 81 mg PO DAILY@0800 08/03/22 08/03/22 Atorvastatin [Lipitor] 40 mg PO HS@2000 08/03/22 08/03/22 Gabapentin [Neurontin] 200 mg PO TID@0800,1600,0000 08/03/22 08/03/22 Metoprolol Tartrate [Lopressor] 25 mg PO Q12H 08/03/22 08/03/22 amLODIPine [Norvasc] 5 mg PO DAILY@0800 08/03/22 08/03/22 Allergies Allergy/AdvReac Type Severity Reaction Status Date / Time insulin glargine AdvReac Diarrhea Verified 11/01/22 11:21 [From Lantus U-100 Insulin] Review of Systems ROS Statement: Those systems with pertinent positive or pertinent negative responses have been documented in the HPI. ROS Other: All systems not noted in ROS Statement are negative. Constitutional: Denies: fever Eyes: Denies: eye pain ENT: Denies: ear pain Respiratory: Reports: dyspnea Cardiovascular: Reports: as per HPI, chest pain Gastrointestinal: Reports: as per HPI, nausea, vomiting Musculoskeletal: Denies: back pain Past Medical History Past Medical History: Atrial Fibrillation, COPD, Diabetes Mellitus, Deep Vein Thrombosis (DVT), Hyperlipidemia, Hypertension, Osteoarthritis (OA), Prostate Disorder, Pulmonary Embolus (PE), Renal Disease, Skin Disorder Additional Past Medical History / Comment(s): "small heart attacks", gout, kidney stones. back pain. kidney function 40%, hypokalemia; wound Rt buttock - using sitz baths cardioversion 08/02/22 History of Any Multi-Drug Resistant Organisms: None Reported Past Surgical History: Cholecystectomy, Heart Catheterization, Orthopedic Surgery Additional Past Surgical History / Comment(s): Cholecystectomy with hernia repair , Bilateral cataract surgery, left knee arthroscopy, ORIF left knee open reduction and internal fixation after injury, pain procedures Past Anesthesia/Blood Transfusion Reactions: No Reported Reaction Past Psychological History: No Psychological Hx Reported Smoking Status: Former smoker Past Alcohol Use History: None Reported Past Drug Use History: None Reported - Past Family History Father History Unknown: Yes Family Medical History: Cancer Additional Family Medical History / Comment(s): . Mother History Unknown: Yes Family Medical History: Cancer Additional Family Medical History / Comment(s): . Brother(s) Family Medical History: No Reported History Additional Family Medical History / Comment(s): from overdose Sister(s) Family Medical History: No Reported History Additional Family Medical History / Comment(s): Patient has 2 sisters and mother from drug overdose after chronic pain syndrome from low back pain. General Exam Limitations: no limitations General appearance: alert, in no apparent distress Head exam: Present: normocephalic Eye exam: Present: normal appearance Neck exam: Present: normal inspection Respiratory exam: Present: normal lung sounds bilaterally Cardiovascular Exam: Present: tachycardia, normal heart sounds Expanded Peripheral pulses: 2+: Radial (R), Radial (L), Dorsalis Pedis (R), Dorsalis Pedis (L) GI/Abdominal exam: Present: soft. Absent: tenderness Extremities exam: Present: normal inspection. Absent: pedal edema, calf tenderness Neurological exam: Present: alert Psychiatric exam: Present: normal affect, normal mood Skin exam: Present: normal color Course Vital Signs 11/01/22 11/01/22 11/01/22 11:20 12:46 13:43 Temperature 98.3 F Pulse Rate 102 H 110 H 100 Respiratory 22 20 Rate Blood Pressure 165/85 147/127 172/107 O2 Sat by Pulse 99 95 Oximetry EKG Findings - EKG Results: EKG: interpreted by ERMD (Septal Q waves.), normal axis, normal ST/T EKG shows: tachycardia, atrial fibrillation Medical Decision Making - Medical Decision Making Was pt. sent in by a medical professional or institution (, [facility]IMMIE, FIREBREAK CUTTER, urgent care, hospital, or long-term...) When possible be specific @ -No Did you speak to anyone other than the patient for history (EMS, parent, family, police, friend...)? What history was obtained from this source @ -No Did you review nursing and triage notes (agree or disagree)? Why? @ -I reviewed and agree with nursing and triage notes Were old charts reviewed (outside hosp., previous admission, EMS record, old EKG, old radiological studies, urgent care reports/EKG's, long-term records)? Report findings @ -No old charts were reviewed Differential Diagnosis (chest pain, altered mental status, abdominal pain women, abdominal pain men, vaginal bleeding, weakness, fever, dyspnea, syncope, headache, dizziness, GI bleed, back pain, seizure, CVA, palpatations, mental health, musculoskeletal)? @ -Differential Chest Pain: Stable Angina, Unstable Angina, STEMI, NSTEMI Aortic Dissection, Pneumothorax, Musculoskeletal, Esophageal Spasm GERD, Cholecystitis, Pancreatitis, Zoster, this is not meant to be an all-inclusive list. EKG interpreted by me (3pts min.). @ -As above X-rays interpreted by me (1pt min.). @ -Chest x-ray shows no acute process CT interpreted by me (1pt min.). @ -None done U/S interpreted by me (1pt. min.). @ -None done What testing was considered but not performed or refused? (CT, X-rays, U/S, labs)? Why? @ -None What meds were considered but not given or refused? Why? @ -None Did you discuss the management of the patient with other professionals (professionals i.e. , PA, FIREBREAK CUTTER, lab, RT, psych nurse, social media community manager, assisted living nursing director, teacher, special loan officer, immigration case manager)? Give summary @ -Case was discussed with Dr. Kendrick, who will admit covering Dr. Long. Was smoking cessation discussed for >3mins.? @ -No Was critical care preformed (if so, how long)? @ -31 minutes of critical care time Were there social determinants of health that impacted care today? How? (Homelessness, low income, unemployed, alcoholism, drug addiction, t ransportation, low edu. Level, literacy, decrease access to med. care, snf, rehab)? @ -No Was there de-escalation of care discussed even if they declined (Discuss DNR or withdrawal of care, Hospice)? DNR status @ -No What co-morbidities impacted this encounter? (DM, HTN, Smoking, COPD, CAD, Cancer, CVA, ARF, Chemo, Hep., AIDS, mental health diagnosis, sleep apnea, morbid obesity)? @ -None Was patient admitted / discharged? Hospital course, mention meds given and route, prescriptions, significant lab abnormalities, going to OR and other pertinent info. @ -Patient reevaluated and somewhat improved. Patient still having some nausea and some discomfort. Patient states she is past due for his Percocet. Patient is updated on results and plan. Patient will be admitted. Admission orders written. Undiagnosed new problem with uncertain prognosis? @ -No Drug Therapy requiring intensive monitoring for toxicity (Heparin, Nitro, Insulin, Cardizem)? @ -Patient is on a Cardizem drip that will need to be monitored secondary to age of fibrillation Were any procedures done? @ -No Diagnosis/symptom? @ -Chest pain, A. fib Acute, or Chronic, or Acute on Chronic? @ -Acute, acute on chronic Uncomplicated (without systemic symptoms) or Complicated (systemic symptoms)? @ -default Side effects of treatment? @ -No Exacerbation, Progression, or Severe Exacerbation? @ -No Poses a threat to life or bodily function? How? (Chest pain, USA, OR, pneumonia, PE, COPD, DKA, ARF, appy, cholecystitis, CVA, Diverticulitis, Homicidal, Suicidal, threat to staff... and all critical care pts) @ -No - Lab Data Result diagrams: 11/01/22 11:40 11/01/22 11:40 Lab Results 11/01/22 11/01/22 11/01/22 Range/Units 11:40 11:40 11:40 WBC 11.1 H (3.8-10.6) k/uL RBC 4.79 (4.30-5.90) m/uL Hgb 14.2 (13.0-17.5) gm/dL Hct 46.3 (39.0-53.0) % MCV 96.7 (80.0-100.0) fL MCH 29.8 (25.0-35.0) pg MCHC 30.8 L (31.0-37.0) g/dL RDW 13.8 (11.5-15.5) % Plt Count 228 (150-450) k/uL MPV 7.7 Neutrophils % 90 % Lymphocytes % 7 % Monocytes % 2 % Eosinophils % 0 % Basophils % 0 % Neutrophils # 10.0 H (1.3-7.7) k/uL Lymphocytes # 0.8 L (1.0-4.8) k/uL Monocytes # 0.2 (0-1.0) k/uL Eosinophils # 0.0 (0-0.7) k/uL Basophils # 0.0 (0-0.2) k/uL PT 10.0 (9.0-12.0) sec INR 0.9 (<1.2) APTT 27.6 (22.0-30.0) sec Sodium 141 (137-145) mmol/L Potassium 4.1 (3.5-5.1) mmol/L Chloride 105 (98-107) mmol/L Carbon Dioxide 22 (22-30) mmol/L Anion Gap 14 mmol/L BUN 23 H (9-20) mg/dL Creatinine 1.22 (0.66-1.25) mg/dL Est GFR (CKD-EPI)AfAm 72 (>60 ml/min/1.73 sqM) Est GFR (CKD-EPI)NonAf 62 (>60 ml/min/1.73 sqM) Glucose 224 H (74-99) mg/dL Calcium 9.8 (8.4-10.2) mg/dL Magnesium 1.9 (1.6-2.3) mg/dL Total Bilirubin 0.7 (0.2-1.3) mg/dL AST 31 (17-59) U/L ALT 24 (4-49) U/L Alkaline Phosphatase 143 H (38-126) U/L Troponin I (0.000-0.034) ng/mL Total Protein 7.5 (6.3-8.2) g/dL Albumin 4.6 (3.5-5.0) g/dL 11/01/22 Range/Units 11:40 WBC (3.8-10.6) k/uL RBC (4.30-5.90) m/uL Hgb (13.0-17.5) gm/dL Hct (39.0-53.0) % MCV (80.0-100.0) fL MCH (25.0-35.0) pg MCHC (31.0-37.0) g/dL RDW (11.5-15.5) % Plt Count (150-450) k/uL MPV Neutrophils % % Lymphocytes % % Monocytes % % Eosinophils % % Basophils % % Neutrophils # (1.3-7.7) k/uL Lymphocytes # (1.0-4.8) k/uL Monocytes # (0-1.0) k/uL Eosinophils # (0-0.7) k/uL Basophils # (0-0.2) k/uL PT (9.0-12.0) sec INR (<1.2) APTT (22.0-30.0) sec Sodium (137-145) mmol/L Potassium (3.5-5.1) mmol/L Chloride (98-107) mmol/L Carbon Dioxide (22-30) mmol/L Anion Gap mmol/L BUN (9-20) mg/dL Creatinine (0.66-1.25) mg/dL Est GFR (CKD-EPI)AfAm (>60 ml/min/1.73 sqM) Est GFR (CKD-EPI)NonAf (>60 ml/min/1.73 sqM) Glucose (74-99) mg/dL Calcium (8.4-10.2) mg/dL Magnesium (1.6-2.3) mg/dL Total Bilirubin (0.2-1.3) mg/dL AST (17-59) U/L ALT (4-49) U/L Alkaline Phosphatase (38-126) U/L Troponin I <0.012 (0.000-0.034) ng/mL Total Protein (6.3-8.2) g/dL Albumin (3.5-5.0) g/dL Critical Care Time Critical Care Time: Yes Total Critical Care Time: 31 Disposition Clinical Impression: Chest pain, Atrial fibrillation with RVR Disposition: ADMITTED IP TO THIS HOSP Is patient prescribed a controlled substance at d/c from ED?: No Referrals: Tanesha Long MD [Primary Care Provider] - 1-2 days Time of Disposition: 14:12
[2022-11-01] MEDS ORDERED: NITROGLYCERIN SL TABS 0.4 MG TAB SUBLINGUAL STA (11:33)
[2022-11-01 12:08] LABS: Basophils % (A) 0 %; Eosinophils % (A) 0 %; HCT 46.3 % (39.0-53.0); HGB 14.2 gm/dL (13.0-17.5); Lymphocytes # (A) 0.8 k/uL (1.0-4.8); Lymphocytes % (A) 7 %; MCH 29.8 pg (25.0-35.0); MCHC 30.8 g/dL (31.0-37.0); MCV 96.7 fL (80.0-100.0); Mean Platelet Volume 7.7; Monocytes # (A) 0.2 k/uL (0-1.0); Monocytes % (A) 2 %; Neutrophils % (A) 90 %; Platelet Count 228 k/uL (150-450); RBC 4.79 m/uL (4.30-5.90); RDW 13.8 % (11.5-15.5); WBC 11.1 k/uL (3.8-10.6)
[2022-11-01 12:17] LABS: INR 0.9 (<1.2); Partial Thromboplastin Time 27.6 sec (22.0-30.0)
[2022-11-01 12:30] LABS: ALT 24 U/L (4-49); AST 31 U/L (17-59); African American GFR (CKD) 72 (>60 ml/min/1.73 sqM); Albumin 4.6 g/dL (3.5-5.0); Alkaline Phosphatase 143 U/L (38-126); Anion Gap 14 mmol/L; Blood Urea Nitrogen 23 mg/dL (9-20); Calcium 9.8 mg/dL (8.4-10.2); Carbon Dioxide 22 mmol/L (22-30); Chloride 105 mmol/L (98-107); Glucose 224 mg/dL (74-99); Magnesium 1.9 mg/dL (1.6-2.3); Non-African American GFR(CKD) 62 (>60 ml/min/1.73 sqM); Potassium 4.1 mmol/L (3.5-5.1); Sodium 141 mmol/L (137-145); Total Bilirubin 0.7 mg/dL (0.2-1.3); Total Protein 7.5 g/dL (6.3-8.2)
[2022-11-01] MEDS ORDERED: ONDANSETRON 4 MG/2 ML VIAL IVP STA (12:34)
[2022-11-01] MEDS: DILTIAZEM 125 MG in SODIUM CHLORIDE 0.9% 100 ML IV SCH (12:43)
--- NOTE | 2022-11-01 13:06 | XR ---
EXAMINATION TYPE: XR chest 1V portable DATE OF EXAM: 11/01/2022 COMPARISON: 08/13/2022 HISTORY: Shortness of breath TECHNIQUE: Frontal and lateral views of the chest are obtained. FINDINGS: Scattered senescent parenchymal changes noted. Hyperinflation compatible with COPD. No evidence for infiltrate. No evidence for atelectasis. Heart size is stable. Mediastinal structures are stable and grossly unremarkable. No evidence for hilar prominence. Degenerative changes dorsal spine. IMPRESSION: 1. No evidence for acute pulmonary disease.
[2022-11-01] MEDS ORDERED: FAMOTIDINE 20 MG/2 ML VIAL IV STA (13:38)
[2022-11-01] MEDS ORDERED: MORPHINE SULFATE 4 MG/ML SYRINGE IVP STA (14:12)
[2022-11-01] MEDS ORDERED: NITROGLYCERIN SL TABS 0.4 MG TAB SUBLINGUAL PRN (14:14)
[2022-11-01] MEDS ORDERED: LORazepam 0.5 MG TAB PO PRN (15:02)
[2022-11-01] MEDS: BACLOFEN 10 MG TAB PO SCH (16:57)
[2022-11-01] MEDS: APIXABAN 5 MG TAB PO SCH (16:57)
[2022-11-01] MEDS: GABAPENTIN 100 MG CAP PO SCH (16:58)
[2022-11-01] MEDS: TAMSULOSIN 0.4 MG CAP.ER.24H PO SCH (18:06)
[2022-11-01] MEDS: NITROGLYCERIN OINT 1 INCH/GM PACKET TOPICAL SCH (18:06)
[2022-11-01] MEDS: PANTOPRAZOLE 40 MG TABLET PO SCH (18:06)
[2022-11-01] MEDS ORDERED: ALBUTEROL NEBULIZED 2.5 MG/3 ML INHALATION PRN (19:59)
[2022-11-01] MEDS: INSULIN DETEMIR (LEVEMIR) 100 UNIT/ML SYR SQ SCH (21:47)
[2022-11-01] MEDS: METOPROLOL TARTRATE 25 MG TAB PO SCH (21:47)
[2022-11-01] MEDS: ATORVASTATIN 40 MG TAB PO SCH (21:48)
[2022-11-01] MEDS: MONTELUKAST 10 MG TAB PO SCH (21:48)
[2022-11-01] MEDS: oxyCODONE-APAP 7.5-325MG 1 EACH TAB PO PRN (21:50)
[2022-11-02] MEDS: BACLOFEN 10 MG TAB PO SCH ×4 (00:24→23:42)
[2022-11-02] MEDS: NITROGLYCERIN OINT 1 INCH/GM PACKET TOPICAL SCH ×5 (00:24→23:42)
[2022-11-02] MEDS: GABAPENTIN 100 MG CAP PO SCH ×4 (00:24→23:42)
[2022-11-02] MEDS: GLIMEPIRIDE 2 MG TAB PO SCH ×2 (06:45→17:30)
[2022-11-02] MEDS: oxyCODONE-APAP 7.5-325MG 1 EACH TAB PO PRN ×4 (06:45→23:42)
[2022-11-02] MEDS: PANTOPRAZOLE 40 MG TABLET PO SCH ×2 (06:45→17:30)
[2022-11-02] MEDS: APIXABAN 5 MG TAB PO SCH ×2 (08:53→17:30)
[2022-11-02] MEDS: allopurinoL 100 MG TAB PO SCH (08:53)
[2022-11-02] MEDS: SERTRALINE 100 MG TAB PO SCH (08:53)
[2022-11-02] MEDS: POTASSIUM CHLORIDE ER 20 MEQ TAB.ER PO SCH (08:53)
[2022-11-02] MEDS: FUROSEMIDE 20 MG TAB PO SCH (08:54)
[2022-11-02] MEDS: METOPROLOL TARTRATE 25 MG TAB PO SCH ×2 (08:55→21:03)
[2022-11-02] MEDS ORDERED: NON FORMULARY DRUG (Aspirin Ec 81 MG Tablet) PO SCH (09:00)
[2022-11-02] MEDS ORDERED: ASPIRIN 325 MG TAB PO SCH (09:00)
[2022-11-02] MEDS: DILTIAZEM 125 MG in SODIUM CHLORIDE 0.9% 100 ML IV SCH (09:43)
[2022-11-02] MEDS: ACETAMINOPHEN TAB 325 MG TAB PO PRN ×2 (10:35→21:01)
[2022-11-02 11:42] LABS: Chol/HDL Ratio 3.06 Ratio; LDL Cholesterol,Calculated 51.7 mg/dL (0.0-131.0)
[2022-11-02 12:56] LABS: Basophils % (A) 0 %; Eosinophils # (A) 0.1 k/uL (0-0.7); Eosinophils % (A) 1 %; HGB 13.2 gm/dL (13.0-17.5); Hypochromasia Slight; Lymphocytes # (A) 1.9 k/uL (1.0-4.8); Lymphocytes % (A) 20 %; MCH 29.8 pg (25.0-35.0); MCHC 30.7 g/dL (31.0-37.0); MCV 97.1 fL (80.0-100.0); Monocytes # (A) 0.5 k/uL (0-1.0); Monocytes % (A) 6 %; Neutrophils # (A) 6.9 k/uL (1.3-7.7); Neutrophils % (A) 72 %; Platelet Count 232 k/uL (150-450); RBC 4.43 m/uL (4.30-5.90); RDW 13.8 % (11.5-15.5); WBC 9.6 k/uL (3.8-10.6)
[2022-11-02 13:17] LABS: African American GFR (CKD) 68 (>60 ml/min/1.73 sqM); Anion Gap 6 mmol/L; Blood Urea Nitrogen 25 mg/dL (9-20); Calcium 9.4 mg/dL (8.4-10.2); Carbon Dioxide 26 mmol/L (22-30); Chloride 107 mmol/L (98-107); Glucose 75 mg/dL (74-99); Non-African American GFR(CKD) 59 (>60 ml/min/1.73 sqM); Potassium 4.8 mmol/L (3.5-5.1); Sodium 139 mmol/L (137-145)
--- NOTE | 2022-11-02 14:07 | P.CRDCN ---
History of Present Illness Consult date: 11/02/22 History of present illness: HISTORY OF PRESENTING ILLNESS This is a pleasant 67-year-old with past medical history significant for coronary artery disease status post cardiac cath in [address] 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 He also has history of atrial fibrillation and follows up at [facility] with Dr. Mcdonough for atrial fibrillation. Patient had an ablation procedure done one month ago which was not successful and was eventually placed on amiodarone. This time patient present to the hospital with feeling poorly and feeling nauseous and vomiting for last 1-2 weeks. Over last 2 days patient has significant nausea and has difficulty keeping his medications down. On admission he was noticed to be in atrial fibrillation. He also reported having symptoms of substernal chest pain which was associated with shortness of breath and palpitations. He was also diaphoretic and nauseous with this. On admission his troponin's 3 were negative. Hemoglobin 13.0, BUN 25, creatinine 1.27 which appears to be his baseline. Potassium 4.8. History of ECG showed rate controlled atrial fibrillation with nonspecific T-wave flattening is in lateral leads. Chest x-ray did not show any obvious congestion but poor inspiratory effort with mild increased vascular markings REVIEW OF SYSTEMS 14 point review of system is negative except what is mentioned above in HPI. PHYSICAL EXAMINATION Vital signs reviewed. Head: Normocephalic. Eyes: Sclerae nonicteric. Neck: Brisk carotid upstroke, no jugular venous distention. Lungs: Clear to auscultation. Heart: Irregular rate and rhythm, S1-S2, no S3, no murmur or rub. Abdomen: Soft nontender, positive bowel sounds no organomegaly. Extremities: No edema, intact distal pulses. ASSESSMENT Persistent atrial fibrillation failed recent ablation 1 month ago. Currently rate controlled atrial fibrillation. Substernal chest pain as it with shortness of breath and palpitations likely related to atrial fibrillation Nausea and vomiting, now resolved Hypertension dyslipidemia PLAN This is patient's third admission in recent time with atypical chest pain which is likely noncardiac. He has been rule out of acute coronary syndrome I will resume his home medication which includes Eliquis, aspirin, atorvastatin, Lasix 20 mg daily His blood pressure is borderline normal for which I will discontinue his amlodipine Reduce his amiodarone to 200 mg daily as he has failed rhythm controlled on amiodarone I will recommend him to follow up with his branding specialist Darrion to readdress the need for long-term amiodarone therapy I will resume his metoprolol 25 mg twice a day I agree with stopping his Cardizem drip No need of further cardiac testing at this time. If heart rate and blood pressure stable on these changes and patient feels better, okay to discharge tomorrow. Would recommend primary team to workup his nausea. His nausea is most likely noncardiac Past Medical History Past Medical History: Atrial Fibrillation, COPD, Diabetes Mellitus, Deep Vein Thrombosis (DVT), Hyperlipidemia, Hypertension, Osteoarthritis (OA), Prostate Disorder, Pulmonary Embolus (PE), Renal Disease, Skin Disorder Additional Past Medical History / Comment(s): "small heart attacks", gout, kidney stones. back pain. kidney function 40%, hypokalemia; wound Rt buttock - using sitz baths cardioversion 08/02/22 History of Any Multi-Drug Resistant Organisms: None Reported Past Surgical History: Cholecystectomy, Heart Catheterization, Orthopedic Surgery Additional Past Surgical History / Comment(s): Cholecystectomy with hernia repair , Bilateral cataract surgery, left knee arthroscopy, ORIF left knee open reduction and internal fixation after injury, pain procedures Past Anesthesia/Blood Transfusion Reactions: No Reported Reaction Past Psychological History: No Psychological Hx Reported Smoking Status: Former smoker Past Alcohol Use History: None Reported Past Drug Use History: None Reported - Past Family History Father History Unknown: Yes Family Medical History: Cancer Additional Family Medical History / Comment(s): . Mother History Unknown: Yes Family Medical History: Cancer Additional Family Medical History / Comment(s): . Brother(s) Family Medical History: No Reported History Additional Family Medical History / Comment(s): from overdose Sister(s) Family Medical History: No Reported History Additional Family Medical History / Comment(s): Patient has 2 sisters and mother from drug overdose after chronic pain syndrome from low back pain. Medications and Allergies Home Medications Medication Instructions Recorded Confirmed Type allopurinoL [Zyloprim] 100 mg PO DAILY@0800 08/08/14 11/01/22 History Montelukast [Singulair] 10 mg PO HS 10/21/17 11/01/22 History Apixaban [Eliquis] 5 mg PO BID@1400,2100 07/15/20 11/01/22 History Insulin Detemir [Levemir Flextouch 25 units SQ HS 07/15/20 11/01/22 History Pen] oxyCODONE HCL/ACETAMINOPHEN 1 tab PO TID PRN 11/01/20 11/01/22 History [oxyCODONE HCL/ACETAMINOPHEN 7.5-325] Baclofen 10 mg PO TID PRN 07/25/22 11/01/22 History Tamsulosin HCl [Flomax] 0.4 mg PO PC-SUPPER 07/25/22 11/01/22 History Albuterol Inhaler [Ventolin Hfa 2 puff INHALATION RT-Q4H PRN 08/03/22 11/01/22 History Inhaler] Amiodarone [Cordarone] 200 mg PO BID 08/03/22 11/01/22 History Aspirin EC [Ecotrin Low Dose] 81 mg PO DAILY 08/03/22 11/01/22 History Atorvastatin [Lipitor] 40 mg PO HS 08/03/22 11/01/22 History Gabapentin [Neurontin] 200 mg PO TID 08/03/22 11/01/22 History amLODIPine [Norvasc] 5 mg PO ONCE 08/03/22 11/01/22 History ALPRAZolam [Xanax] 0.5 mg PO BID PRN 11/01/22 11/01/22 History Doxycycline [Vibramycin] 100 mg PO BID 11/01/22 11/01/22 History Ergocalciferol [Vitamin D2 (1250 1,250 mcg PO FR 11/01/22 11/01/22 History Mcg = 03429 Iu)] Furosemide [Lasix] 20 mg PO DAILY 11/01/22 11/01/22 History Glimepiride [Amaryl] 2 mg PO AC-BID 11/01/22 11/01/22 History Pantoprazole [Protonix] 40 mg PO AC-BID 11/01/22 11/01/22 History Potassium Chloride [Potassium 20 meq PO DAILY 11/01/22 11/01/22 History Chloride ER (K-Dur GEQ)] Sertraline [Zoloft] 100 mg PO DAILY 11/01/22 11/01/22 History Allergies Allergy/AdvReac Type Severity Reaction Status Date / Time insulin glargine AdvReac Diarrhea Verified 11/01/22 16:11 [From Lantus U-100 Insulin] Physical Exam Vitals: Vital Signs Temp Pulse Pulse Resp BP BP Pulse Ox 11/02/22 13:15 97 11/02/22 11:00 98 F 70 20 106/64 97 11/02/22 08:00 98.5 F 85 18 106/62 96 11/02/22 04:00 98.2 F 95 17 110/65 97 11/02/22 02:00 91 18 11/02/22 00:00 98.4 F 91 18 126/71 97 11/01/22 20:00 98.6 F 108 H 18 112/62 96 11/01/22 16:58 98.5 F 104 H 18 119/75 97 11/01/22 16:35 97.9 F 18 118/68 96 11/01/22 14:23 96 18 159/97 95 Intake and Output 11/01/22 11/02/22 11/02/22 22:59 06:59 14:59 Intake Total 105 Output Total 0 Balance 105 Intake: Intake, IV Titration 105 Amount Diltiazem 125 mg In 105 Sodium Chloride 0.9% 100 ml @ 5 MG/HR 5 mls/hr IV .Q24H [facility] Rx#:[id number] Output: Gastric Drainage 0 Urine 0 Stool 0 Urine/Stool Mix 0 Emesis 0 Oral Regurgitation 0 Other 0 Other: Voiding Method Toilet Toilet # Voids 0 # Bowel Movements 0 Weight 108.862 kg Results 11/02/22 12:17 11/02/22 12:17 Cardiac Enzymes 11/01/22 11/01/22 Range/Units 14:20 17:07 Troponin I <0.012 <0.012 (0.000-0.034) ng/mL Lipids 11/01/22 Range/Units 11:40 Triglycerides 139.00 (0.00-149.00) mg/dL Cholesterol 118.00 (0.00-200.00) mg/dL HDL Cholesterol 38.50 L (40.00-60.00) mg/dL Cholesterol/HDL Ratio 3.06 Ratio CBC 11/02/22 Range/Units 12:17 WBC 9.6 (3.8-10.6) k/uL RBC 4.43 (4.30-5.90) m/uL Hgb 13.2 (13.0-17.5) gm/dL Hct 43.0 (39.0-53.0) % Plt Count 232 (150-450) k/uL Comprehensive Metabolic Panel 11/02/22 Range/Units 12:17 Sodium 139 (137-145) mmol/L Potassium 4.8 (3.5-5.1) mmol/L Chloride 107 (98-107) mmol/L Carbon Dioxide 26 (22-30) mmol/L BUN 25 H (9-20) mg/dL Creatinine 1.27 H (0.66-1.25) mg/dL Glucose 75 (74-99) mg/dL Calcium 9.4 (8.4-10.2) mg/dL Current Medications Generic Name Dose Route Start Last Admin Trade Name Freq PRN Reason Stop Dose Admin Acetaminophen 650 mg 11/02/22 10:06 11/02/22 10:35 Acetaminophen Tab 325 Mg Tab PO 650 mg Q6HR PRN Administration Fever and/ or Pain Albuterol Sulfate 2.5 mg 11/01/22 19:59 Albuterol Nebulized 2.5 Mg/3 Ml INHALATION RT-Q4H PRN Shortness Of Breath Allopurinol 100 mg 11/02/22 08:00 11/02/22 08:53 Allopurinol 100 Mg Tab PO 100 mg DAILY@0800 JOSE Administration Alprazolam 0.5 mg 11/01/22 19:59 Alprazolam 0.5 Mg Tab PO BID PRN panic attack Amiodarone HCl 200 mg 11/02/22 13:45 Amiodarone 200 Mg Tab PO DAILY [facility] Apixaban 5 mg 11/01/22 17:00 11/02/22 08:53 Apixaban 5 Mg Tab PO 5 mg BID@0800,1700 [facility] Administration Protocol Aspirin 81 mg 11/03/22 09:00 Aspirin 81 Mg PO DAILY [facility] Atorvastatin Calcium 40 mg 11/01/22 20:00 11/01/22 21:48 Atorvastatin 40 Mg Tab PO 40 mg HS@2000 JOSE Administration Baclofen 10 mg 11/01/22 16:00 11/02/22 08:53 Baclofen 10 Mg Tab PO 10 mg TID@0800,1600,0000 [facility] Administration Ergocalciferol 1,250 mcg 11/08/22 09:00 Ergocalciferol 1,250 Mcg (50,000 Iu) Capsule PO FR JOSE Furosemide 20 mg 11/02/22 09:00 11/02/22 08:54 Furosemide 20 Mg Tab PO 20 mg DAILY JOSE Administration Gabapentin 200 mg 11/01/22 16:00 11/02/22 08:53 Gabapentin 100 Mg Cap PO 200 mg TID@0800,1600,0000 [facility] Administration Glimepiride 2 mg 11/02/22 07:30 11/02/22 06:45 Glimepiride 2 Mg Tab PO 2 mg AC-BID JOSE Administration Diltiazem HCl 125 mg/ Sodium 125 mls @ 5 mls/hr 11/01/22 11:45 11/02/22 09:43 Chloride IV 5 mg/hr .Q24H JOSE 5 mls/hr Administration 5 MG/HR Insulin Detemir 25 unit 11/01/22 21:00 11/01/22 21:47 Insulin Detemir (Levemir) 100 Unit/Ml Syr SQ 25 unit HS JOSE Administration Lorazepam 0.5 mg 11/01/22 15:02 Lorazepam 0.5 Mg Tab PO DAILY PRN panic attacks Metoprolol Tartrate 25 mg 11/01/22 21:00 11/02/22 08:55 Metoprolol Tartrate 25 Mg Tab PO 25 mg Q12HR [facility] Administration Montelukast Sodium 10 mg 11/01/22 21:00 11/01/22 21:48 Montelukast 10 Mg Tab PO 10 mg HS JOSE Administration Nitroglycerin 0.4 mg 11/01/22 14:14 Nitroglycerin Sl Tabs 0.4 Mg Tab SUBLINGUAL Q5M PRN Chest Pain Nitroglycerin 1 inch 11/01/22 18:00 11/02/22 12:40 Nitroglycerin Oint 1 Inch/Gm Packet TOPICAL 1 inch Q6HR [facility] Administration Oxycodone/Acetaminophen 1 each 11/01/22 17:26 11/02/22 12:40 Oxycodone-Apap 7.5-325mg 1 Each Tab PO 1 each TID PRN Administration Pain Pantoprazole Sodium 40 mg 11/01/22 17:30 11/02/22 06:45 Pantoprazole 40 Mg Tablet PO 40 mg AC-BID JOSE Administration Potassium Chloride 20 meq 11/02/22 09:00 11/02/22 08:53 Potassium Chloride Er 20 Meq Tab.Er PO 20 meq DAILY JOSE Administration Sertraline HCl 100 mg 11/02/22 09:00 11/02/22 08:53 Sertraline 100 Mg Tab PO 100 mg DAILY JOSE Administration Tamsulosin HCl 0.4 mg 11/01/22 18:30 11/01/22 18:06 Tamsulosin 0.4 Mg Cap.Er.24h PO 0.4 mg PC-SUPPER JOSE Administration Intake and Output 11/01/22 11/02/22 11/02/22 22:59 06:59 14:59 Intake Total 105 Output Total 0 Balance 105 Intake: Intake, IV Titration 105 Amount Diltiazem 125 mg In 105 Sodium Chloride 0.9% 100 ml @ 5 MG/HR 5 mls/hr IV .Q24H [facility] Rx#:[id number] Output: Gastric Drainage 0 Urine 0 Stool 0 Urine/Stool Mix 0 Emesis 0 Oral Regurgitation 0 Other 0 Other: Voiding Method Toilet Toilet # Voids 0 # Bowel Movements 0 Weight 108.862 kg 11/02/22 12:17 11/02/22 12:17
[2022-11-02] MEDS: AMIODARONE 200 MG TAB PO SCH (15:35)
--- NOTE | 2022-11-02 16:28 | P.HPIM ---
History of Present Illness H&P Date: 11/01/22 Chief Complaint: Chest pain 67-year-old male, history of atrial fibrillation, hypertension, hyperlipidemia, diabetes mellitus, DVT/PE, presents emergency department with concern for chest discomfort. Patient did have some nausea and vomiting for around 5 AM. Patient started with chest discomfort around 9 AM. Patient does have history of similar symptoms previously associated with atrial fibrillation. Patient did have ablation done a few weeks ago. Patient has felt a little bit sweaty and short of breath. Discomfort feels a pressure is rated 6 out of 10 in the sternal region. Patient does have associated palpitations. Patient is on eliquis with history of atrial fibrillation Labs are completed in ED reveals a WBC of 11.1, hemoglobin of 14.2 and platelet count of 228, sodium 141, potassium 4.1, BUN/creatinine of 23/1.2 to, blood glucose of 224 EKG reveals atrial fibrillation with RVR Chest x-ray is negative for any acute pulmonary process Patient is being admitted for further cardiac evaluation Review of Systems REVIEW OF SYSTEMS: CONSTITUTIONAL: No fever, no malaise, no fatigue. HEENT: No recent visual problems or hearing problems. Denied any sore throat. CARDIOVASCULAR: No chest pain, orthopnea, PND, no palpitations, no syncope. PULMONARY: No shortness of breath, no cough, no hemoptysis. GASTROINTESTINAL: No diarrhea, no nausea, no vomiting, no abdominal pain. NEUROLOGICAL: No headaches, no weakness, no numbness. HEMATOLOGICAL: Denies any bleeding or petechiae. GENITOURINARY: Denies any burning micturition, frequency, or urgency. MUSCULOSKELETAL/RHEUMATOLOGICAL: Denies any joint pain, swelling, or any muscle pain. ENDOCRINE: Denies any polyuria or polydipsia. The rest of the 14-point review of systems is negative. Past Medical History Past Medical History: Atrial Fibrillation, COPD, Diabetes Mellitus, Deep Vein Thrombosis (DVT), Hyperlipidemia, Hypertension, Osteoarthritis (OA), Prostate Disorder, Pulmonary Embolus (PE), Renal Disease, Skin Disorder Additional Past Medical History / Comment(s): "small heart attacks", gout, kidney stones. back pain. kidney function 40%, hypokalemia; wound Rt buttock - using sitz baths cardioversion 08/02/22 History of Any Multi-Drug Resistant Organisms: None Reported Past Surgical History: Cholecystectomy, Heart Catheterization, Orthopedic Surgery Additional Past Surgical History / Comment(s): Cholecystectomy with hernia repair , Bilateral cataract surgery, left knee arthroscopy, ORIF left knee open reduction and internal fixation after injury, pain procedures Past Anesthesia/Blood Transfusion Reactions: No Reported Reaction Past Psychological History: No Psychological Hx Reported Smoking Status: Former smoker Past Alcohol Use History: None Reported Past Drug Use History: None Reported - Past Family History Father History Unknown: Yes Family Medical History: Cancer Additional Family Medical History / Comment(s): . Mother History Unknown: Yes Family Medical History: Cancer Additional Family Medical History / Comment(s): . Brother(s) Family Medical History: No Reported History Additional Family Medical History / Comment(s): from overdose Sister(s) Family Medical History: No Reported History Additional Family Medical History / Comment(s): Patient has 2 sisters and mother from drug overdose after chronic pain syndrome from low back pain. Medications and Allergies Home Medications Medication Instructions Recorded Confirmed Type allopurinoL [Zyloprim] 100 mg PO DAILY@0800 08/08/14 11/01/22 History Montelukast [Singulair] 10 mg PO HS 10/21/17 11/01/22 History Apixaban [Eliquis] 5 mg PO BID@1400,2100 07/15/20 11/01/22 History Insulin Detemir [Levemir Flextouch 25 units SQ HS 07/15/20 11/01/22 History Pen] oxyCODONE HCL/ACETAMINOPHEN 1 tab PO TID PRN 11/01/20 11/01/22 History [oxyCODONE HCL/ACETAMINOPHEN 7.5-325] Baclofen 10 mg PO TID PRN 07/25/22 11/01/22 History Tamsulosin HCl [Flomax] 0.4 mg PO PC-SUPPER 07/25/22 11/01/22 History Albuterol Inhaler [Ventolin Hfa 2 puff INHALATION RT-Q4H PRN 08/03/22 11/01/22 History Inhaler] Amiodarone [Cordarone] 200 mg PO BID 08/03/22 11/01/22 History Aspirin EC [Ecotrin Low Dose] 81 mg PO DAILY 08/03/22 11/01/22 History Atorvastatin [Lipitor] 40 mg PO HS 08/03/22 11/01/22 History Gabapentin [Neurontin] 200 mg PO TID 08/03/22 11/01/22 History amLODIPine [Norvasc] 5 mg PO ONCE 08/03/22 11/01/22 History ALPRAZolam [Xanax] 0.5 mg PO BID PRN 11/01/22 11/01/22 History Doxycycline [Vibramycin] 100 mg PO BID 11/01/22 11/01/22 History Ergocalciferol [Vitamin D2 (1250 1,250 mcg PO FR 11/01/22 11/01/22 History Mcg = 40731 Iu)] Furosemide [Lasix] 20 mg PO DAILY 11/01/22 11/01/22 History Glimepiride [Amaryl] 2 mg PO AC-BID 11/01/22 11/01/22 History Pantoprazole [Protonix] 40 mg PO AC-BID 11/01/22 11/01/22 History Potassium Chloride [Potassium 20 meq PO DAILY 11/01/22 11/01/22 History Chloride ER (K-Dur GEQ)] Sertraline [Zoloft] 100 mg PO DAILY 11/01/22 11/01/22 History Allergies Allergy/AdvReac Type Severity Reaction Status Date / Time insulin glargine AdvReac Diarrhea Verified 11/01/22 16:11 [From Lantus U-100 Insulin] Physical Exam Vitals: Vital Signs Temp Pulse Resp BP Pulse Ox 11/01/22 13:43 100 20 172/107 95 11/01/22 12:46 110 H 147/127 11/01/22 11:20 98.3 F 102 H 22 165/85 99 Intake and Output 10/31/22 11/01/22 11/01/22 22:59 06:59 14:59 Other: Weight 108.862 kg PHYSICAL EXAMINATION: GENERAL: The patient is alert and oriented x3, not in any acute distress. Well developed, well nourished. HEENT: Pupils are round and equally reacting to light. EOMI. No scleral icterus. No conjunctival pallor. Normocephalic, atraumatic. No pharyngeal erythema. No thyromegaly. CARDIOVASCULAR: S1 and S2 present. No murmurs, rubs, or gallops. PULMONARY: Chest is clear to auscultation, no wheezing or crackles. ABDOMEN: Soft, nontender, nondistended, normoactive bowel sounds. No palpable organomegaly. MUSCULOSKELETAL: No joint swelling or deformity. EXTREMITIES: No cyanosis, clubbing, or pedal edema. NEUROLOGICAL: Gross neurological examination did not reveal any focal deficits. SKIN: No rashes. Results CBC & Chem 7: 11/02/22 12:17 11/02/22 12:17 Labs: Abnormal Lab Results - Last 24 Hours (Table) 11/01/22 11/01/22 Range/Units 11:40 11:40 WBC 11.1 H (3.8-10.6) k/uL MCHC 30.8 L (31.0-37.0) g/dL Neutrophils # 10.0 H (1.3-7.7) k/uL Lymphocytes # 0.8 L (1.0-4.8) k/uL BUN 23 H (9-20) mg/dL Glucose 224 H (74-99) mg/dL Alkaline Phosphatase 143 H (38-126) U/L Assessment and Plan Assessment: 1. Chest pain rule out acute coronary syndrome - Patient will be admitted to telemetry; monitor EKG and trend troponin - Currently on aspirin, statins, metoprolol 25 mg twice a day - Consult cardiology for further recommendations 2. Atrial fibrillation with RVR; patient underwent failed recent ablation about a month ago - Patient is currently on IV Cardizem infusion; plan is to titrate keeping heart rate under 100 - On metoprolol 25 mg twice a day which will be resumed - Patient takes amiodarone at home which is placed on hold till cardiology evaluation 3. Hyperglycemia/uncontrolled diabetes mellitus type 2; patient takes Amaryl 2 mg by mouth twice a day, Levemir 25 mg by mouth daily at bedtime; we will monitor Accu-Cheks every before meals and at bedtime with insulin sliding scale 4. Mild acute renal injury; slightly fluid hydration with normal saline at a rate of 75 mL an hour; monitor strict BI's, daily weights, renal function and electrolytes; avoid nephrotoxins and hypotension 5. Hyperlipidemia; Lipitor 40 mg by mouth daily at bedtime 6. Hypertension; Lopressor 25 mg every 12 hours; Lasix 20 mg daily 7. Diabetic neuropathy; Neurontin 200 mg 3 times a day 8. Asthma; not in exacerbation; continue with home inhaler therapy; Singulair 10 mg daily 9. BPH; Flomax for 0.4 mg daily 10. Depression; Zoloft 100 mg daily DVT prophylaxis; SCDs/systemic anticoagulation CODE STATUS; full code
[2022-11-02] MEDS: TAMSULOSIN 0.4 MG CAP.ER.24H PO SCH (17:30)
[2022-11-02] MEDS: ALPRAZolam 0.5 MG TAB PO PRN ×2 (17:42→23:42)
[2022-11-02] MEDS: INSULIN DETEMIR (LEVEMIR) 100 UNIT/ML SYR SQ SCH (21:01)
[2022-11-02] MEDS: MONTELUKAST 10 MG TAB PO SCH (21:03)
[2022-11-02] MEDS: ATORVASTATIN 40 MG TAB PO SCH (21:03)
[2022-11-03] MEDS: GLIMEPIRIDE 2 MG TAB PO SCH ×2 (06:23→16:09)
[2022-11-03] MEDS: PANTOPRAZOLE 40 MG TABLET PO SCH ×2 (06:24→16:09)
[2022-11-03] MEDS: oxyCODONE-APAP 7.5-325MG 1 EACH TAB PO PRN ×2 (06:24→16:09)
[2022-11-03] MEDS: NITROGLYCERIN OINT 1 INCH/GM PACKET TOPICAL SCH ×3 (06:24→16:09)
[2022-11-03 08:19] LABS: Basophils % (A) 0 %; Eosinophils # (A) 0.2 k/uL (0-0.7); Eosinophils % (A) 2 %; HCT 44.6 % (39.0-53.0); HGB 14.1 gm/dL (13.0-17.5); Lymphocytes # (A) 2.3 k/uL (1.0-4.8); Lymphocytes % (A) 25 %; MCH 30.5 pg (25.0-35.0); MCHC 31.6 g/dL (31.0-37.0); MCV 96.5 fL (80.0-100.0); Mean Platelet Volume 7.7; Monocytes # (A) 0.6 k/uL (0-1.0); Monocytes % (A) 6 %; Neutrophils # (A) 5.9 k/uL (1.3-7.7); Neutrophils % (A) 65 %; Platelet Count 233 k/uL (150-450); RBC 4.62 m/uL (4.30-5.90); RDW 13.8 % (11.5-15.5); WBC 9.1 k/uL (3.8-10.6)
[2022-11-03 08:35] LABS: African American GFR (CKD) 72 (>60 ml/min/1.73 sqM); Anion Gap 3 mmol/L; Blood Urea Nitrogen 22 mg/dL (9-20); Calcium 9.3 mg/dL (8.4-10.2); Carbon Dioxide 27 mmol/L (22-30); Chloride 106 mmol/L (98-107); Glucose 89 mg/dL (74-99); Non-African American GFR(CKD) 62 (>60 ml/min/1.73 sqM); Potassium 4.3 mmol/L (3.5-5.1); Sodium 136 mmol/L (137-145)
[2022-11-03] MEDS: ACETAMINOPHEN TAB 325 MG TAB PO PRN (08:47)
[2022-11-03] MEDS: FUROSEMIDE 20 MG TAB PO SCH (08:48)
[2022-11-03] MEDS: allopurinoL 100 MG TAB PO SCH (08:48)
[2022-11-03] MEDS: METOPROLOL TARTRATE 25 MG TAB PO SCH (08:48)
[2022-11-03] MEDS: BACLOFEN 10 MG TAB PO SCH ×2 (08:48→16:09)
[2022-11-03] MEDS: AMIODARONE 200 MG TAB PO SCH (08:48)
[2022-11-03] MEDS: GABAPENTIN 100 MG CAP PO SCH ×2 (08:48→16:08)
[2022-11-03] MEDS: POTASSIUM CHLORIDE ER 20 MEQ TAB.ER PO SCH (08:48)
[2022-11-03] MEDS: APIXABAN 5 MG TAB PO SCH ×2 (08:48→16:09)
[2022-11-03] MEDS: SERTRALINE 100 MG TAB PO SCH (08:50)
[2022-11-03] MEDS ORDERED: ASPIRIN 81 MG PO SCH (09:00)
[2022-11-03] MEDS: DILTIAZEM 125 MG in SODIUM CHLORIDE 0.9% 100 ML IV SCH (11:53)
[2022-11-03 14:09] VITALS: RESP 16
--- NOTE | 2022-11-03 14:13 | P.PN ---
Subjective Progress Note Date: 11/03/22 Patient is seen and examined at bedside this a.m. He denies having any chest pain chest pressure or shortness of breath. PHYSICAL EXAMINATION Vital signs reviewed. Head: Normocephalic. Eyes: Sclerae nonicteric. Neck: Brisk carotid upstroke, no jugular venous distention. Lungs: Clear to auscultation. Heart: Irregular rate and rhythm, S1-S2, no S3, no murmur or rub. Abdomen: Soft nontender, positive bowel sounds no organomegaly. Extremities: No edema, intact distal pulses. ASSESSMENT Persistent atrial fibrillation failed recent ablation 1 month ago. Currently rate controlled atrial fibrillation. Substernal chest pain as it with shortness of breath and palpitations likely related to atrial fibrillation Nausea and vomiting, now resolved Hypertension dyslipidemia PLAN This is patient's third admission in recent time with atypical chest pain which is likely noncardiac. He has been rule out of acute coronary syndrome I will resume his home medication which includes Eliquis, aspirin, atorvastatin, Lasix 20 mg daily His blood pressure is borderline normal for which I will discontinue his amlodipine Reduce his amiodarone to 200 mg daily as he has failed rhythm controlled on amiodarone I will recommend him to follow up with his department specialist Darrion to readdress the need for long-term amiodarone therapy I will resume his metoprolol 25 mg twice a day No need of further cardiac testing at this time. If heart rate and blood pressure stable on these changes and patient feels better, okay to discharge tomorrow. Would recommend primary team to workup his nausea. His nausea is most likely noncardiac He shouldn't should follow-up with his primary department specialist for further ischemic evaluation. He does not need ischemic evaluation at this time. Okay to discharge from cardiac standpoint with outpatient follow-up Objective - Vital Signs Vital signs: Vital Signs Temp 98.1 F 11/03/22 08:30 Pulse 86 11/03/22 11:30 Resp 16 11/03/22 11:30 BP 93/69 11/03/22 11:30 Pulse Ox 98 11/03/22 11:30 FiO2 Intake & Output 11/02/22 11/03/22 11/03/22 18:59 06:59 18:59 Intake Total 225 360 Output Total 0 Balance 225 360 Weight 106.7 kg Intake: Intake, IV Titration 105 Amount Diltiazem 125 mg In 105 Sodium Chloride 0.9% 100 ml @ 5 MG/HR 5 mls/hr IV .Q24H COUNT INCLUDES THE [facility] Rx#:[id number] Oral 120 360 Output: Gastric Drainage 0 Urine 0 Stool 0 Urine/Stool Mix 0 Emesis 0 Oral Regurgitation 0 Other 0 Other: Voiding Method Toilet # Voids 1 1 # Bowel Movements 0 - Labs CBC & Chem 7: 11/03/22 07:49 11/03/22 07:49 Labs: Abnormal Lab Results - Last 24 Hours (Table) 11/03/22 Range/Units 07:49 Sodium 136 L (137-145) mmol/L BUN 22 H (9-20) mg/dL
[2022-11-03] MEDS: TAMSULOSIN 0.4 MG CAP.ER.24H PO SCH (16:09)
--- NOTE | 2022-11-03 16:32 | P.DS ---
Providers Date of admission: 11/01/22 15:03 Expected date of discharge: 11/03/22 Attending physician: Isaías Godoy MD Consults: 11/01/22 14:14 Consult Physician Urgent Consulting Provider: Rajesh Son Consult Reason/Comments: emmanuel mason Do you want consulting provider notified?: Yes Primary care physician: [facility] Course: 67-year-old male, history of atrial fibrillation, hypertension, hyperlipidemia, diabetes mellitus, DVT/PE, presents emergency department with concern for chest discomfort. Patient did have some nausea and vomiting for around 5 AM. Patient started with chest discomfort around 9 AM. Patient does have history of similar symptoms previously associated with atrial fibrillation. Patient did have ablation done a few weeks ago. Patient has felt a little bit sweaty and short of breath. Discomfort feels a pressure is rated 6 out of 10 in the sternal region. Patient does have associated palpitations. Patient is on eliquis with history of atrial fibrillation Labs are completed in ED reveals a WBC of 11.1, hemoglobin of 14.2 and platelet count of 228, sodium 141, potassium 4.1, BUN/creatinine of 23/1.2 to, blood glucose of 224 EKG reveals atrial fibrillation with RVR Chest x-ray is negative for any acute pulmonary process Patient is being admitted for further cardiac evaluation 1. Chest pain rule out acute coronary syndrome - Patient will be admitted to telemetry; monitor EKG and trend troponin - Currently on aspirin, statins, metoprolol 25 mg twice a day - Consult cardiology for further recommendations 2. Atrial fibrillation with RVR; patient underwent failed recent ablation about a month ago - Patient is currently on IV Cardizem infusion; plan is to titrate keeping heart rate under 100 - On metoprolol 25 mg twice a day which will be resumed - Patient takes amiodarone at home which is placed on hold till cardiology evaluation 3. Hyperglycemia/uncontrolled diabetes mellitus type 2; patient takes Amaryl 2 mg by mouth twice a day, Levemir 25 mg by mouth daily at bedtime; we will monitor Accu-Cheks every before meals and at bedtime with insulin sliding scale 4. Mild acute renal injury; slightly fluid hydration with normal saline at a rate of 75 mL an hour; monitor strict BI's, daily weights, renal function and electrolytes; avoid nephrotoxins and hypotension 5. Hyperlipidemia; Lipitor 40 mg by mouth daily at bedtime 6. Hypertension; Lopressor 25 mg every 12 hours; Lasix 20 mg daily 7. Diabetic neuropathy; Neurontin 200 mg 3 times a day 8. Asthma; not in exacerbation; continue with home inhaler therapy; Singulair 10 mg daily 9. BPH; Flomax for 0.4 mg daily 10. Depression; Zoloft 100 mg daily Cardiology recommendations --discontinue his amlodipine -Reduce his amiodarone to 200 mg daily as he has failed rhythm controlled on amiodarone I will recommend him to follow up with his t rail turner Darrion to readdress the need for long-term amiodarone therapy --resume his metoprolol 25 mg twice a day No need of further cardiac testing at this time. If heart rate and blood pressure stable on these changes and patient feels better, okay to discharge Plan - Discharge Summary Discharge Rx Participant: Yes New Discharge Prescriptions: New Metoprolol Tartrate [Lopressor] 25 mg PO Q12HR 30 Days #60 tab Amiodarone [Cordarone] 200 mg PO DAILY tab Continue allopurinoL [Zyloprim] 100 mg PO DAILY@0800 Montelukast [Singulair] 10 mg PO HS oxyCODONE HCL/ACETAMINOPHEN [oxyCODONE HCL/ACETAMINOPHEN 7.5-325] 1 tab PO TID PRN PRN Reason: Pain Tamsulosin HCl [Flomax] 0.4 mg PO PC-SUPPER Baclofen 10 mg PO TID PRN PRN Reason: Muscle Spasm Albuterol Inhaler [Ventolin Hfa Inhaler] 2 puff INHALATION RT-Q4H PRN PRN Reason: Shortness Of Breath Gabapentin [Neurontin] 200 mg PO TID Sertraline [Zoloft] 100 mg PO DAILY Potassium Chloride [Potassium Chloride ER (K-Dur GEQ)] 20 meq PO DAILY Pantoprazole [Protonix] 40 mg PO AC-BID Furosemide [Lasix] 20 mg PO DAILY Doxycycline [Vibramycin] 100 mg PO BID ALPRAZolam [Xanax] 0.5 mg PO BID PRN PRN Reason: panic attack Apixaban [Eliquis] 5 mg PO BID@1400,2100 Insulin Detemir [Levemir Flextouch Pen] 25 units SQ HS Aspirin EC [Ecotrin Low Dose] 81 mg PO DAILY Atorvastatin [Lipitor] 40 mg PO HS Glimepiride [Amaryl] 2 mg PO AC-BID Ergocalciferol [Vitamin D2 (1250 Mcg = 72566 Iu)] 1,250 mcg PO FR Discontinued Amiodarone [Cordarone] 200 mg PO BID amLODIPine [Norvasc] 5 mg PO ONCE Discharge Medication List allopurinoL [Zyloprim] 100 mg PO DAILY@0800 08/08/14 [History] Montelukast [Singulair] 10 mg PO HS 10/21/17 [History] Apixaban [Eliquis] 5 mg PO BID@1400,2100 07/15/20 [History] Insulin Detemir [Levemir Flextouch Pen] 25 units SQ HS 07/15/20 [History] oxyCODONE HCL/ACETAMINOPHEN [oxyCODONE HCL/ACETAMINOPHEN 7.5-325] 1 tab PO TID PRN 11/01/20 [History] Baclofen 10 mg PO TID PRN 07/25/22 [History] Tamsulosin HCl [Flomax] 0.4 mg PO PC-SUPPER 07/25/22 [History] Albuterol Inhaler [Ventolin Hfa Inhaler] 2 puff INHALATION RT-Q4H PRN 08/03/22 [History] Aspirin EC [Ecotrin Low Dose] 81 mg PO DAILY 08/03/22 [History] Atorvastatin [Lipitor] 40 mg PO HS 08/03/22 [History] Gabapentin [Neurontin] 200 mg PO TID 08/03/22 [History] ALPRAZolam [Xanax] 0.5 mg PO BID PRN 11/01/22 [History] Doxycycline [Vibramycin] 100 mg PO BID 11/01/22 [History] Ergocalciferol [Vitamin D2 (1250 Mcg = 06434 Iu)] 1,250 mcg PO FR 11/01/22 [History] Furosemide [Lasix] 20 mg PO DAILY 11/01/22 [History] Glimepiride [Amaryl] 2 mg PO AC-BID 11/01/22 [History] Pantoprazole [Protonix] 40 mg PO AC-BID 11/01/22 [History] Potassium Chloride [Potassium Chloride ER (K-Dur GEQ)] 20 meq PO DAILY 11/01/22 [History] Sertraline [Zoloft] 100 mg PO DAILY 11/01/22 [History] Amiodarone [Cordarone] 200 mg PO DAILY tab 11/03/22 [Rx] Metoprolol Tartrate [Lopressor] 25 mg PO Q12HR 30 Days #60 tab 11/03/22 [Rx] Follow up Appointment(s)/Referral(s): Tanesha Long MD [Primary Care Provider] - 1-2 days (Please call the office to schedule follow up. ) Phil Farley MD [STAFF PHYSICIAN] - 1 Week (Please call office to schedule follow up. ) Patient Instructions/Handouts: Angina (DC), A-fib (Atrial Fibrillation) (DC), COPD (Chronic Obstructive Pulmonary Disease) (DC) Discharge Disposition: HOME SELF-CARE
[2022-11-03 17:02] VITALS: BP 134/83; PULSE 81; TEMP 97.1
[2022-11-08] MEDS ORDERED: ERGOCALCIFEROL 1,250 MCG (50,000 IU) CAPSULE PO SCH (09:00)
== END 2022-11-03 16:56 | disposition home or self-care (01) ==
LOC: EC 11:18 → 3SCARD 15:03
PROVIDERS: ADMIT Internal Medicine; ATTEND Internal Medicine
DX: I20.9 Angina pectoris, unspecified (principal); R11.10 Vomiting, unspecified; R07.9 Chest pain, unspecified; I48.91 Unspecified atrial fibrillation; E11.65 Type 2 diabetes mellitus with hyperglycemia; N17.9 Acute kidney failure, unspecified; E78.5 Hyperlipidemia, unspecified; I10 Essential (primary) hypertension; E11.40 Type 2 diabetes mellitus with diabetic neuropathy, unspecified; J45.909 Unspecified asthma, uncomplicated; N40.0 Benign prostatic hyperplasia without lower urinary tract symptoms; F32.A Depression, unspecified; Z87.891 Personal history of nicotine dependence; Z79.811 Long term (current) use of aromatase inhibitors; Z79.4 Long term (current) use of insulin; Z79.899 Other long term (current) drug therapy; Z79.01 Long term (current) use of anticoagulants; Z88.8 Allergy status to other drugs, medicaments and biological substances; Z86.718 Personal history of other venous thrombosis and embolism; J44.9 Chronic obstructive pulmonary disease, unspecified; Z86.711 Personal history of pulmonary embolism; I25.2 Old myocardial infarction; M10.9 Gout, unspecified; Z90.49 Acquired absence of other specified parts of digestive tract; Z98.42 Cataract extraction status, left eye; Z98.41 Cataract extraction status, right eye; Z80.9 Family history of malignant neoplasm, unspecified; Z81.3 Family history of other psychoactive substance abuse and dependence
CPT/HCPCS: 96366 ×3; 96365; 96375; 99291; 36415; 94760; 93005; 80061; 80053; 80048 ×2; 83735; 84484; 85025 ×3; 85610; 85730; 71045; G0378 ×3; J2270; J2405; J3490

== ENCOUNTER 2022-12-26 18:13 | Observation (INO) | payer MEDICARE, OTHER ==
[2022-12-26 18:38] VITALS: RESP 18; TEMP 98.3
[2022-12-26] MEDS ORDERED: SODIUM CHLORIDE 0.9% 1,000 ML IV STA (21:26)
--- NOTE | 2022-12-26 21:48 | ED ---
Arrhythmia/Palpitations HPI - General Chief Complaint: Dizziness Stated Complaint: dizziness/ chest pains Time Seen by Provider: 12/26/22 21:22 Source: patient, RN notes reviewed, old records reviewed Mode of arrival: wheelchair Limitations: no limitations - History of Present Illness Initial Comments: This is a 67-year-old male to the emergency department today. Presents today for evaluation regards to low heart rate. Patient has had a significantly low heart rate after recent cardiac cardiac ablation for atrial fibrillation. Patient is still taking metoprolol. Patient's blood pressures been high in high normal. Patient does have some dizziness and lightheadedness and some chest tightness MD Complaint: "skipped beats", palpitations -: days(s) Arrhythmia History: atrial fibrillation Associated Symptoms: chest pain Treatments Prior to Arrival: other (0) - Related Data Home Medications Medication Instructions Recorded Confirmed allopurinoL [Zyloprim] 100 mg PO DAILY 08/08/14 12/26/22 Montelukast [Singulair] 10 mg PO HS 10/21/17 12/26/22 Apixaban [Eliquis] 5 mg PO BID@1400,2100 07/15/20 12/26/22 Insulin Detemir [Levemir Flextouch 25 units SQ HS 07/15/20 12/26/22 Pen] oxyCODONE HCL/ACETAMINOPHEN 1 tab PO Q6H PRN 11/01/20 12/26/22 [oxyCODONE HCL/ACETAMINOPHEN 7.5-325] Baclofen 10 mg PO TID PRN 07/25/22 12/26/22 Tamsulosin HCl [Flomax] 0.4 mg PO DAILY 07/25/22 12/26/22 Albuterol Inhaler [Ventolin Hfa 2 puff INHALATION RT-Q4H PRN 08/03/22 12/26/22 Inhaler] Aspirin EC [Ecotrin Low Dose] 81 mg PO DAILY 08/03/22 12/26/22 Gabapentin [Neurontin] 200 mg PO TID 08/03/22 12/26/22 ALPRAZolam [Xanax] 0.5 mg PO BID PRN 11/01/22 12/26/22 Ergocalciferol [Vitamin D2 (1250 1,250 mcg PO FR 11/01/22 12/26/22 Mcg = 12005 Iu)] Furosemide [Lasix] 20 mg PO DAILY 11/01/22 12/26/22 Pantoprazole [Protonix] 40 mg PO DAILY 11/01/22 12/26/22 Potassium Chloride [Potassium 20 meq PO DAILY 11/01/22 12/26/22 Chloride ER (K-Dur GEQ)] Sertraline [Zoloft] 100 mg PO DAILY 11/01/22 12/26/22 Amiodarone [Cordarone] 200 mg PO BID 12/26/22 12/26/22 Atorvastatin [Lipitor] 40 mg PO DAILY 12/26/22 12/26/22 Doxycycline Monohydrate 100 mg PO DAILY 12/26/22 12/26/22 Glimepiride [Amaryl] 4 mg PO BID 12/26/22 12/26/22 Ondansetron [Zofran] 4 mg PO DAILY PRN 12/26/22 12/26/22 Previous Rx's Medication Instructions Recorded Metoprolol Tartrate [Lopressor] 25 mg PO Q12HR 30 Days #60 tab 11/03/22 Allergies Allergy/AdvReac Type Severity Reaction Status Date / Time insulin glargine AdvReac Diarrhea Verified 12/26/22 22:19 [From Lantus U-100 Insulin] Review of Systems ROS Statement: Those systems with pertinent positive or pertinent negative responses have been documented in the HPI. ROS Other: All systems not noted in ROS Statement are negative. Past Medical History Past Medical History: Atrial Fibrillation, COPD, Diabetes Mellitus, Deep Vein Thrombosis (DVT), Hyperlipidemia, Hypertension, Osteoarthritis (OA), Prostate Disorder, Pulmonary Embolus (PE), Renal Disease, Skin Disorder Additional Past Medical History / Comment(s): "small heart attacks", gout, kidney stones. back pain. kidney function 40%, hypokalemia; wound Rt buttock - using sitz baths cardioversion 08/02/22 History of Any Multi-Drug Resistant Organisms: None Reported Past Surgical History: Cholecystectomy, Heart Catheterization, Orthopedic Surgery Additional Past Surgical History / Comment(s): Cholecystectomy with hernia repair , Bilateral cataract surgery, left knee arthroscopy, ORIF left knee open reduction and internal fixation after injury, pain procedures, cardiac ablation Past Anesthesia/Blood Transfusion Reactions: No Reported Reaction Past Psychological History: No Psychological Hx Reported Smoking Status: Former smoker Past Alcohol Use History: None Reported Past Drug Use History: None Reported - Past Family History Father History Unknown: Yes Family Medical History: Cancer Additional Family Medical History / Comment(s): . Mother History Unknown: Yes Family Medical History: Cancer Additional Family Medical History / Comment(s): . Brother(s) Family Medical History: No Reported History Additional Family Medical History / Comment(s): from overdose Sister(s) Family Medical History: No Reported History Additional Family Medical History / Comment(s): Patient has 2 sisters and mother from drug overdose after chronic pain syndrome from low back pain. General Exam Limitations: no limitations General appearance: alert, in no apparent distress Head exam: Present: atraumatic, normocephalic, normal inspection Eye exam: Present: normal appearance, PERRL, EOMI. Absent: scleral icterus, conjunctival injection, periorbital swelling ENT exam: Present: normal exam, mucous membranes moist Neck exam: Present: normal inspection. Absent: tenderness, meningismus, lymphadenopathy Respiratory exam: Present: normal lung sounds bilaterally. Absent: respiratory distress, wheezes, rales, rhonchi, stridor Cardiovascular Exam: Present: regular rate, normal rhythm, normal heart sounds. Absent: systolic murmur, diastolic murmur, rubs, gallop, clicks GI/Abdominal exam: Present: soft, normal bowel sounds. Absent: distended, tenderness, guarding, rebound, rigid Extremities exam: Present: normal inspection, full ROM, normal capillary refill. Absent: tenderness, pedal edema, joint swelling, calf tenderness Back exam: Present: normal inspection Neurological exam: Present: alert, oriented X3, CN II-XII intact Psychiatric exam: Present: normal affect, normal mood Skin exam: Present: warm, dry, intact, normal color. Absent: rash Course Vital Signs 12/26/22 12/26/22 12/26/22 18:18 21:32 23:00 Temperature 98.3 F Pulse Rate 44 L 45 L 46 L Respiratory 18 18 16 Rate Blood Pressure 144/69 159/72 145/62 O2 Sat by Pulse 95 99 95 Oximetry 12/27/22 12/27/22 00:00 01:00 Temperature Pulse Rate 47 L 51 L Respiratory 18 18 Rate Blood Pressure 134/67 154/87 O2 Sat by Pulse 95 99 Oximetry - Reevaluation(s) Reevaluation #1: 12/27/22 01:09 Medical records reviewed Reevaluation #2: 12/27/22 01:09 Patient symptoms are unchanged, will hold metoprolol Reevaluation #3: 12/27/22 01:09 Patient informed results and questions answered Reevaluation #4: 12/27/22 01:09 Was pt. sent in by a medical professional or institution (JIMMIE Beltrán, VP PATIENT, urgent care, hospital, or detention...) When possible be specific @ -no Did you speak to anyone other than the patient for history (EMS, parent, family, police, friend...)? What history was obtained from this source @ -no Did you review nursing and triage notes (agree or disagree)? Why? @ -agree Are old charts reviewed (outside hosp., previous admission, EMS record, old EKG, old radiological studies, urgent care reports/EKG's, detention records)? Report findings @ -yes Differential Diagnosis (chest pain, altered mental status, abdominal pain women, abdominal pain men, vaginal bleeding, weakness, fever, dyspnea, syncope, headache, dizziness, GI bleed, back pain, seizure, CVA, palpatations, mental health, musculoskeletal)? @ -prior EKG interpreted by me (3pts min.). @ -yes X-rays interpreted by me (1pt min.). @ -yes CT interpreted by me (1pt min.). @ -no U/S interpreted by me (1pt. min.). @ -no What testing was considered but not performed or refused? (CT, X-rays, U/S, labs)? Why? @ -none What meds were considered but not given or refused? Why? @ -none Did you discuss the management of the patient with other professionals (professionals i.e. JIMMIE Beltrán, VP PATIENT, lab, RT, psych nurse, social media marketing analyst, coal shoveler, teacher, account officer, embedded case manager)? Give summary @ -no Was smoking cessation discussed for >3mins.? @ -no Was critical care preformed (if so, how long)? @ -no Were there social determinants of health that impacted care today? How? (Homelessness, low income, unemployed, alcoholism, drug addiction, transportation, low edu. Level, literacy, decrease access to med. care, [place] [facility], rehab)? @ -none Was there de-escalation of care discussed even if they declined (Discuss DNR or withdrawal of care, Hospice)? DNR status @ -no What co-morbidities impacted this encounter? (DM, HTN, Smoking, COPD, CAD, Cancer, CVA, ARF, Chemo, Hep., AIDS, mental health diagnosis, sleep apnea, m orbid obesity)? @ -none Was patient admitted / discharged? Hospital course, mention meds given and route, prescriptions, significant lab abnormalities, going to OR and other pertinent info. @ - Undiagnosed new problem with uncertain prognosis? @ -no Drug Therapy requiring intensive monitoring for toxicity (Heparin, Nitro, Insulin, Cardizem)? @ -no Were any procedures done? @ -no Diagnosis/symptom? @ - Acute, or Chronic, or Acute on Chronic? @ -Acute Uncomplicated (without systemic symptoms) or Complicated (systemic symptoms)? @ -Complicated Side effects of treatment? @ -no Exacerbation, Progression, or Severe Exacerbation? @ -exacerbation Poses a threat to life or bodily function? How? (Chest pain, USA, AR, pneumonia, PE, COPD, DKA, ARF, appy, cholecystitis, CVA, Diverticulitis, Homicidal, Suicidal, threat to staff... and all critical care pts) @ -yes Reevaluation #5: 12/27/22 01:10 Differential Chest Pain: Stable Angina, Unstable Angina, STEMI, NSTEMI Aortic Dissection, Pneumothorax, Musculoskeletal, Esophageal Spasm GERD, Cholecystitis, Pancreatitis, Zoster, this is not meant to be an all-inclusive list. Differential Palpitations Ventricular arrhythmias, atrial arrhythmias, myocardial infarction, anemia, thyrotoxicosis, electrolyte imbalance, hypokalemia, pulmonary embolism, pulmonary disease, drugs, alcohol, anxiety, stress.... This is not meant to be an all-inclusive list. - Consultations Consultation #1: Spoke with [facility] were agrees to admit this patient EKG Findings - EKG Comments: EKG Findings:: EKG is sinus bradycardia 44 AR 203 QRS 103 QTC 166 - EKG Results: EKG: interpreted by TACHO Medical Decision Making - Medical Decision Making 67 male with bradycardia here in the ER, patient is bradycardia after recent cardiac ablation, patient does have history of atrial fibrillation still takes metoprolol, patient be admitted for cardiology evaluation holding beta shirley - Lab Data Result diagrams: 12/26/22 21:26 12/26/22 21:26 Lab Results 12/26/22 12/26/22 12/26/22 Range/Units 21:26 21:26 21:26 WBC 6.8 (3.8-10.6) k/uL RBC 4.34 (4.30-5.90) m/uL Hgb 13.0 (13.0-17.5) gm/dL Hct 41.0 (39.0-53.0) % MCV 94.6 (80.0-100.0) fL MCH 30.0 (25.0-35.0) pg MCHC 31.8 (31.0-37.0) g/dL RDW 15.3 (11.5-15.5) % Plt Count 195 (150-450) k/uL MPV 8.1 Neutrophils % 68 % Lymphocytes % 22 % Monocytes % 6 % Eosinophils % 2 % Basophils % 0 % Neutrophils # 4.6 (1.3-7.7) k/uL Lymphocytes # 1.5 (1.0-4.8) k/uL Monocytes # 0.4 (0-1.0) k/uL Eosinophils # 0.1 (0-0.7) k/uL Basophils # 0.0 (0-0.2) k/uL Hypochromasia Slight PT 11.3 (10.0-12.5) sec INR 1.0 (<1.2) APTT 29.0 (22.0-30.0) sec Sodium 141 (137-145) mmol/L Potassium 4.2 (3.5-5.1) mmol/L Chloride 106 (98-107) mmol/L Carbon Dioxide 28 (22-30) mmol/L Anion Gap 7 mmol/L BUN 18 (9-20) mg/dL Creatinine 1.28 H (0.66-1.25) mg/dL Est GFR (CKD-EPI)AfAm 68 (>60 ml/min/1.73 sqM) Est GFR (CKD-EPI)NonAf 58 (>60 ml/min/1.73 sqM) Glucose 142 H (74-99) mg/dL Plasma Lactic Acid Mani (0.7-2.0) mmol/L Calcium 9.0 (8.4-10.2) mg/dL Phosphorus 3.8 (2.5-4.5) mg/dL Magnesium 2.1 (1.6-2.3) mg/dL Total Bilirubin 0.5 (0.2-1.3) mg/dL AST 20 (17-59) U/L ALT 18 (4-49) U/L Alkaline Phosphatase 98 (38-126) U/L Troponin I (0.000-0.034) ng/mL NT-Pro-B Natriuret Pep 2950 pg/mL Total Protein 5.9 L (6.3-8.2) g/dL Albumin 3.5 (3.5-5.0) g/dL TSH 1.700 (0.465-4.680) mIU/L 12/26/22 12/26/22 Range/Units 21:26 21:26 WBC (3.8-10.6) k/uL RBC (4.30-5.90) m/uL Hgb (13.0-17.5) gm/dL Hct (39.0-53.0) % MCV (80.0-100.0) fL MCH (25.0-35.0) pg MCHC (31.0-37.0) g/dL RDW (11.5-15.5) % Plt Count (150-450) k/uL MPV Neutrophils % % Lymphocytes % % Monocytes % % Eosinophils % % Basophils % % Neutrophils # (1.3-7.7) k/uL Lymphocytes # (1.0-4.8) k/uL Monocytes # (0-1.0) k/uL Eosinophils # (0-0.7) k/uL Basophils # (0-0.2) k/uL Hypochromasia PT (10.0-12.5) sec INR (<1.2) APTT (22.0-30.0) sec Sodium (137-145) mmol/L Potassium (3.5-5.1) mmol/L Chloride (98-107) mmol/L Carbon Dioxide (22-30) mmol/L Anion Gap mmol/L BUN (9-20) mg/dL Creatinine (0.66-1.25) mg/dL Est GFR (CKD-EPI)AfAm (>60 ml/min/1.73 sqM) Est GFR (CKD-EPI)NonAf (>60 ml/min/1.73 sqM) Glucose (74-99) mg/dL Plasma Lactic Acid Mani 1.7 (0.7-2.0) mmol/L Calcium (8.4-10.2) mg/dL Phosphorus (2.5-4.5) mg/dL Magnesium (1.6-2.3) mg/dL Total Bilirubin (0.2-1.3) mg/dL AST (17-59) U/L ALT (4-49) U/L Alkaline Phosphatase (38-126) U/L Troponin I <0.012 (0.000-0.034) ng/mL NT-Pro-B Natriuret Pep pg/mL Total Protein (6.3-8.2) g/dL Albumin (3.5-5.0) g/dL TSH (0.465-4.680) mIU/L - EKG Data -: EKG Interpreted by Me Disposition Clinical Impression: Chest pain, Bradycardia, Atrial fibrillation, Weakness, Atypical chest pain Disposition: ADMITTED IP TO THIS HOSP Condition: Fair Is patient prescribed a controlled substance at d/c from ED?: No Time of Disposition: 23:30
[2022-12-26 22:19] LABS: Basophils % (A) 0 %; Eosinophils # (A) 0.1 k/uL (0-0.7); Eosinophils % (A) 2 %; Hypochromasia Slight; Lymphocytes # (A) 1.5 k/uL (1.0-4.8); Lymphocytes % (A) 22 %; MCHC 31.8 g/dL (31.0-37.0); MCV 94.6 fL (80.0-100.0); Mean Platelet Volume 8.1; Monocytes # (A) 0.4 k/uL (0-1.0); Monocytes % (A) 6 %; Neutrophils # (A) 4.6 k/uL (1.3-7.7); Neutrophils % (A) 68 %; Platelet Count 195 k/uL (150-450); RBC 4.34 m/uL (4.30-5.90); RDW 15.3 % (11.5-15.5); WBC 6.8 k/uL (3.8-10.6)
[2022-12-26 22:27] LABS: Prothrombin Time 11.3 sec (10.0-12.5)
[2022-12-26 22:31] LABS: ALT 18 U/L (4-49); AST 20 U/L (17-59); African American GFR (CKD) 68 (>60 ml/min/1.73 sqM); Albumin 3.5 g/dL (3.5-5.0); Alkaline Phosphatase 98 U/L (38-126); Anion Gap 7 mmol/L; Blood Urea Nitrogen 18 mg/dL (9-20); Carbon Dioxide 28 mmol/L (22-30); Chloride 106 mmol/L (98-107); Glucose 142 mg/dL (74-99); Magnesium 2.1 mg/dL (1.6-2.3); Non-African American GFR(CKD) 58 (>60 ml/min/1.73 sqM); Phosphorus 3.8 mg/dL (2.5-4.5); Potassium 4.2 mmol/L (3.5-5.1); Sodium 141 mmol/L (137-145); Total Bilirubin 0.5 mg/dL (0.2-1.3); Total Protein 5.9 g/dL (6.3-8.2)
[2022-12-26 22:41] LABS: NT-Pro-B-Type Natriuretic Pept 2950 pg/mL
[2022-12-26] MEDS ORDERED: NALOXONE 0.4 MG/ML 1 ML VIAL IV PRN (23:28)
[2022-12-26] MEDS ORDERED: MORPHINE SULFATE 4 MG/ML SYRINGE IV PRN (23:28)
[2022-12-26] MEDS ORDERED: ONDANSETRON 4 MG/2 ML VIAL IVP PRN (23:28)
[2022-12-26] MEDS ORDERED: SODIUM CHLORIDE 0.9% 1,000 ML IV SCH (23:30)
[2022-12-27 03:45] VITALS: BP 170/80; PULSE 48
== END 2022-12-27 05:45 | disposition left against medical advice (07) ==
LOC: EC 18:13 → 6NMEDSUR 23:28
PROVIDERS: ADMIT Hospitalist; ATTEND Hospitalist
DX: R07.89 Other chest pain (principal); R00.1 Bradycardia, unspecified; R42 Dizziness and giddiness; R53.1 Weakness; R00.2 Palpitations; E11.9 Type 2 diabetes mellitus without complications; I10 Essential (primary) hypertension; J44.9 Chronic obstructive pulmonary disease, unspecified; I48.91 Unspecified atrial fibrillation; E78.5 Hyperlipidemia, unspecified; M19.90 Unspecified osteoarthritis, unspecified site; L98.9 Disorder of the skin and subcutaneous tissue, unspecified; N42.9 Disorder of prostate, unspecified; M10.9 Gout, unspecified; Z53.29 Procedure and treatment not carried out because of patient's decision for other reasons; Z79.01 Long term (current) use of anticoagulants; Z79.4 Long term (current) use of insulin; Z79.82 Long term (current) use of aspirin; Z79.84 Long term (current) use of oral hypoglycemic drugs; Z79.2 Long term (current) use of antibiotics; Z79.899 Other long term (current) drug therapy; Z88.8 Allergy status to other drugs, medicaments and biological substances; Z86.711 Personal history of pulmonary embolism; Z90.49 Acquired absence of other specified parts of digestive tract; Z98.42 Cataract extraction status, left eye; Z98.41 Cataract extraction status, right eye; Z87.442 Personal history of urinary calculi; Z98.890 Other specified postprocedural states; Z87.891 Personal history of nicotine dependence; Z81.3 Family history of other psychoactive substance abuse and dependence; Z80.9 Family history of malignant neoplasm, unspecified
CPT/HCPCS: 99285; 36415; 93005; 83880; 80053; 83605; 83735; 84100; 84443; 84484; 85025; 85610; 85730; G0378 ×2

== ENCOUNTER 2023-02-12 19:45 | Outpatient (CLI) | payer MEDICARE, OTHER ==
--- NOTE | 2023-02-19 02:41 | SLS ---
SLEEP STUDY STUDY: Polysomnography report. HISTORY OF PRESENT ILLNESS: This patient is known to have severe obstructive sleep apnea with an AHI of 34. The patient was being treated with CPAP at a pressure of 9 cm of water. He has not used his machine for the past 2 years. The patient was feelings of claustrophobia. He continued to be symptomatic with loud snoring, sleep fragmentation, excessive tiredness and sleepiness. He was also having issues with paroxysmal atrial fibrillation. He was referred to [facility] in [facility] for inspire system. His body mass index is 33. Screening polysomnography was ordered. His comorbid conditions include coronary artery disease, COPD, hypertension, hyperlipidemia, chronic kidney disease, diabetes mellitus, secondary pulmonary hypertension along with paroxysmal atrial fibrillation. PERTINENT PHYSICAL FINDINGS: Height is 5 feet 11 inches and weight is 242, and BMI 33.8. TECHNICAL DESCRIPTION: The sleep evaluation of the patient consisted of clinical polysomnography, nocturnal respiratory battery, left and right anterior tibialis surface electromyography. The standard montage for the clinical polysomnography included the EEG, EOG, EMG, and EKG. Respiratory battery included measurements of nasal/buccal airflow, thoracic, and/or abdominal effort and intercostal surface EMG. Nocturnal oxyhemoglobin saturations were obtained by finger oximetry. Digital video and audio monitoring were done throughout the entire night to check or parasomnias. SLEEP ARCHITECTURE: Total time in bed was found 16.5 minutes. Total sleep time is down to 166.5 minutes and the sleep efficiency was calculated to be at 64%. Latency to sleep onset is 53 minutes. Latency to REM sleep is 9.5 minutes and the sleep architecture was characterized by 59.1% stage I, 30.0% stage II, 0% stage III, and 10.9% REM sleep. The total arousal index was 8.6 and the patient wake after sleep onset time was 89 minutes. SLEEP CONTINUITY SUMMARY: The patient had a total of 38 arousals with an index of 8.6. Respiratory arousal index was 0.9. PERIODIC LIMB MOVEMENT ACTIVITY: There was a total of 121 periodic limb movement activity with an index of 49.8. No arousals related to periodic limb movement activity. CARDIAC SUMMARY: Average heart rate was 50, minimum heart rate of 47, maximum heart rate of 54. RESPIRATORY ANALYSIS: Respiratory analysis showed a total of 74 obstructive events of which 0 were obstructive, 1 was mixed, 73 were obstructive hypopneas and the resulting AHI was 16.7. This is consistent with moderately severe LESLEY. His disease was slightly worse during REM sleep with an AHI of 24.8 during REM sleep. OXYGENATION ANALYSIS: The patient's baseline pulse ox was 92%, lowest pulse ox was 84%, and the patient spent approximately 1 hour and 25 minutes of sleep time, below pulse ox of 89% with a minimum pulse ox of 84%. IMPRESSION: 1. Symptomatic obstructive sleep apnea, moderate in severity with an AHI of 16.7. The patient has had difficulty tolerating CPAP therapy in the past and the patient is looking for alternative treatments. In the past, he has been treated with CPAP at a pressure of 9 cm of water for AHI of 34. Note that the severity of sleep apnea had improved over the past 5 years. His disease is moderately severe, worse during REM sleep. 2. Nocturnal oxygen desaturation secondary to above with lowest pulse ox of 84%, recorded during REM sleep. 3. Abnormal sleep architecture was overlapped with over-representation of stage 1 sleep and diminished stage II delta and REM. 4. Poor sleep efficiency of 64%. 5. Delayed sleep onset. 6. Known history of obstructive sleep apnea with previous failures of CPAP therapy. 7. Proximity fibrillation. 8. Coronary artery disease. 9. Chronic obstructive pulmonary disease. 10.Hypertension. 11.Hyperlipidemia. 12.Chronic kidney disease. 13.Diabetes mellitus. 14.Secondary pulmonary hypertension. PLAN: I would like to discuss those results with the patient. The patient has failed CPAP therapy in the past and is interested in the Inspire. Note that the severity of sleep apnea has improved over this past 5 years and his AHI is down to 16.7. Nevertheless, he continues to be symptomatic. Will offer Inspire therapy and make the appropriate referrals if the patient is still interested. We will continue to follow. MMODL / IJN: [id number] /
== END 2023-02-13 05:48 | disposition home or self-care (01) ==
LOC: 3 N SLEEP 19:45
PROVIDERS: ATTEND Internal Medicine Critical Care Medicine
DX: G47.33 Obstructive sleep apnea (adult) (pediatric) (principal); G47.36 Sleep related hypoventilation in conditions classified elsewhere; G47.52 REM sleep behavior disorder; G47.21 Circadian rhythm sleep disorder, delayed sleep phase type; G47.8 Other sleep disorders; Z88.8 Allergy status to other drugs, medicaments and biological substances; F17.210 Nicotine dependence, cigarettes, uncomplicated
CPT/HCPCS: 95810

== ENCOUNTER → 2023-03-18 | Outpatient (CLI) | payer MEDICARE, OTHER ==
[2023-03-18 17:47] LABS: BUN/Creat Ratio 15.85 Ratio (12.00-20.00); Blood Urea Nitrogen 20.6 mg/dL (9.0-27.0); Calcium 9.7 mg/dL (8.7-10.3); Carbon Dioxide 22.8 mmol/L (21.6-31.8); Chloride 104 mmol/L (96-109); Glucose 220 mg/dL (70-110); Potassium 4.3 mmol/L (3.5-5.5); Sodium 139 mmol/L (135-145)
== END | disposition home or self-care (01) ==
LOC: LABWHC1 10:10
PROVIDERS: ATTEND Internal Medicine Clinical Cardiac Electrophysiology
DX: Z51.81 Encounter for therapeutic drug level monitoring (principal); I48.19 Other persistent atrial fibrillation; I50.22 Chronic systolic (congestive) heart failure; Z79.899 Other long term (current) drug therapy
CPT/HCPCS: 36415; 80048

== ENCOUNTER 2023-03-20 00:55 | Observation (INO) | payer MEDICARE, OTHER ==
[2023-03-20 01:25] LABS: Anisocytosis Slight; Basophils % (A) 0 %; Eosinophils # (A) 0.1 k/uL (0-0.7); Eosinophils % (A) 1 %; HCT 42.6 % (39.0-53.0); HGB 14.2 gm/dL (13.0-17.5); Hypochromasia Slight; Lymphocytes # (A) 1.2 k/uL (1.0-4.8); Lymphocytes % (A) 11 %; MCH 30.1 pg (25.0-35.0); MCHC 33.2 g/dL (31.0-37.0); MCV 90.6 fL (80.0-100.0); Mean Platelet Volume 7.7; Monocytes # (A) 0.6 k/uL (0-1.0); Monocytes % (A) 5 %; Neutrophils # (A) 8.9 k/uL (1.3-7.7); Neutrophils % (A) 81 %; Platelet Count 202 k/uL (150-450); WBC 10.9 k/uL (3.8-10.6)
--- NOTE | 2023-03-20 01:30 | XR ---
EXAMINATION TYPE: XR chest 2V DATE OF EXAM: 03/20/2023 COMPARISON: Prior chest x-ray November 01, 2022 HISTORY: Chest pain TECHNIQUE: Frontal and lateral views of the chest are obtained. FINDINGS: There is no suspicious new focal air space opacity, pleural effusion, or pneumothorax seen . The cardiac silhouette size remains within normal limits. The osseous structures are intact. IMPRESSION: No acute process.
[2023-03-20 01:35] LABS: INR 0.9 (<1.2); Partial Thromboplastin Time 24.6 sec (22.0-30.0); Prothrombin Time 9.8 sec (10.0-12.5)
--- NOTE | 2023-03-20 02:00 | ED ---
Chest Pain HPI - General Chief Complaint: Chest Pain Stated Complaint: Chest pain Time Seen by Provider: 03/20/23 01:24 Source: patient Mode of arrival: wheelchair Limitations: no limitations - History of Present Illness Initial Comments: Aravind is a 67-year-old male who presents the ER today for evaluation of chest pain. Patient reports approximately 2 hours prior to arrival he woke from sleep with chest pain. Pain is in the right side of his chest just lateral to the sternum. Patient did develop some nausea and vomiting and reported some transient improvement in the discomfort however patient reports that the discomfort again worsened he continues to feel nauseated without vomiting. He had an episode of diarrhea here. Patient has an extensive cardiac history is a former smoker has not had a cigarette in approximately a year and a half. - Related Data Home Medications Medication Instructions Recorded Confirmed allopurinoL [Zyloprim] 100 mg PO DAILY 08/08/14 12/26/22 Montelukast [Singulair] 10 mg PO HS 10/21/17 12/26/22 Apixaban [Eliquis] 5 mg PO BID@1400,2100 07/15/20 12/26/22 Insulin Detemir [Levemir Flextouch 25 units SQ HS 07/15/20 12/26/22 Pen] oxyCODONE HCL/ACETAMINOPHEN 1 tab PO Q6H PRN 11/01/20 12/26/22 [oxyCODONE HCL/ACETAMINOPHEN 7.5-325] Baclofen 10 mg PO TID PRN 07/25/22 12/26/22 Tamsulosin HCl [Flomax] 0.4 mg PO DAILY 07/25/22 12/26/22 Albuterol Inhaler [Ventolin Hfa 2 puff INHALATION RT-Q4H PRN 08/03/22 12/26/22 Inhaler] Aspirin EC [Ecotrin Low Dose] 81 mg PO DAILY 08/03/22 12/26/22 Gabapentin [Neurontin] 200 mg PO TID 08/03/22 12/26/22 ALPRAZolam [Xanax] 0.5 mg PO BID PRN 11/01/22 12/26/22 Ergocalciferol [Vitamin D2 (1250 1,250 mcg PO FR 11/01/22 12/26/22 Mcg = 79298 Iu)] Furosemide [Lasix] 20 mg PO DAILY 11/01/22 12/26/22 Pantoprazole [Protonix] 40 mg PO DAILY 11/01/22 12/26/22 Potassium Chloride [Potassium 20 meq PO DAILY 11/01/22 12/26/22 Chloride ER (K-Dur GEQ)] Sertraline [Zoloft] 100 mg PO DAILY 11/01/22 12/26/22 Amiodarone [Cordarone] 200 mg PO BID 12/26/22 12/26/22 Atorvastatin [Lipitor] 40 mg PO DAILY 12/26/22 12/26/22 Doxycycline Monohydrate 100 mg PO DAILY 12/26/22 12/26/22 Glimepiride [Amaryl] 4 mg PO BID 12/26/22 12/26/22 Ondansetron [Zofran] 4 mg PO DAILY PRN 12/26/22 12/26/22 Previous Rx's Medication Instructions Recorded Metoprolol Tartrate [Lopressor] 25 mg PO Q12HR 30 Days #60 tab 11/03/22 Allergies Allergy/AdvReac Type Severity Reaction Status Date / Time insulin glargine AdvReac Diarrhea Verified 03/20/23 01:00 [From Lantus U-100 Insulin] Review of Systems ROS Statement: Those systems with pertinent positive or pertinent negative responses have been documented in the HPI. ROS Other: All systems not noted in ROS Statement are negative. EKG Findings - EKG Comments: EKG Findings:: EKG interpreted by me, EKG obtained due to complaint of chest pain, EKG obtained at 1:02 AM, rate is 62 rhythm is sinus normal axis, GA prolonged at 213, QRS [address] elevations or depressions no evidence of acute ischemia or infarction. Past Medical History Past Medical History: Atrial Fibrillation, COPD, Diabetes Mellitus, Deep Vein Thrombosis (DVT), Hyperlipidemia, Hypertension, Osteoarthritis (OA), Prostate Disorder, Pulmonary Embolus (PE), Renal Disease, Skin Disorder Additional Past Medical History / Comment(s): "small heart attacks", gout, kidney stones. back pain. kidney function 40%, hypokalemia; wound Rt buttock - using sitz baths cardioversion 08/02/22 History of Any Multi-Drug Resistant Organisms: None Reported Past Surgical History: Cholecystectomy, Heart Catheterization, Orthopedic Surgery Additional Past Surgical History / Comment(s): Cholecystectomy with hernia repair , Bilateral cataract surgery, left knee arthroscopy, ORIF left knee open reduction and internal fixation after injury, pain procedures, cardiac ablation Past Anesthesia/Blood Transfusion Reactions: No Reported Reaction Past Psychological History: No Psychological Hx Reported Smoking Status: Former smoker Past Alcohol Use History: None Reported Past Drug Use History: None Reported - Past Family History Father History Unknown: Yes Family Medical History: Cancer Additional Family Medical History / Comment(s): . Mother History Unknown: Yes Family Medical History: Cancer Additional Family Medical History / Comment(s): . Brother(s) Family Medical History: No Reported History Additional Family Medical History / Comment(s): from overdose Sister(s) Family Medical History: No Reported History Additional Family Medical History / Comment(s): Patient has 2 sisters and mother from drug overdose after chronic pain syndrome from low back pain. General Exam Limitations: no limitations General appearance: alert, other (Poor hygiene) Head exam: Present: atraumatic, normocephalic Eye exam: Present: PERRL Respiratory exam: Present: wheezes. Absent: respiratory distress Cardiovascular Exam: Present: regular rate GI/Abdominal exam: Present: soft. Absent: distended Rectal exam: Present: deferred Extremities exam: Present: normal inspection Neurological exam: Present: alert, oriented X3 Psychiatric exam: Present: agitated Skin exam: Present: warm, diaphoretic Course Vital Signs 03/20/23 03/20/23 03/20/23 00:56 03:00 03:45 Temperature 97.7 F Pulse Rate 68 57 L 58 L Respiratory 22 18 18 Rate Blood Pressure 209/91 183/88 174/91 O2 Sat by Pulse 97 99 99 Oximetry 03/20/23 03/20/23 03/20/23 04:00 04:43 05:48 Temperature Pulse Rate 60 60 61 Respiratory 18 18 18 Rate Blood Pressure 181/90 178/71 187/83 O2 Sat by Pulse 97 97 99 Oximetry 03/20/23 06:25 Temperature Pulse Rate 60 Respiratory 18 Rate Blood Pressure 173/67 O2 Sat by Pulse 99 Oximetry Chest Pain MDM - MDM Was pt. sent in by a medical professional or institution (, PA, CARPENTRY INSTRUCTOR, urgent care, hospital, or [facility]...) When possible be specific @ -No Did you speak to anyone other than the patient for history (EMS, parent, family, police, friend...)? What history was obtained from this source @ -No Did you review nursing and triage notes (agree or disagree)? Why? @ -I reviewed and agree with nursing and triage notes Were old charts reviewed (outside hosp., previous admission, EMS record, old EKG, old radiological studies, urgent care reports/EKG's, [facility] records)? Report findings @ -Previous hospitalizations reviewed Differential Diagnosis (chest pain, altered mental status, abdominal pain women, abdominal pain men, vaginal bleeding, weakness, fever, dyspnea, syncope, headache, dizziness, GI bleed, back pain, seizure, CVA, palpatations, mental health)? @ -Differential Chest Pain: Stable Angina, Unstable Angina, STEMI, NSTEMI Aortic Dissection, Pneumothorax, Musculoskeletal, Esophageal Spasm GERD, Cholecystitis, Pancreatitis, Zoster, this is not meant to be an all-inclusive list. EKG interpreted by me (3pts min.). @ -As above X-rays interpreted by me (1pt min.). @ -No pneumothorax no focal consolidations CT interpreted by me (1pt min.). @ -None done U/S interpreted by me (1pt. min.). @ -None done What testing was considered but not performed or refused? (CT, X-rays, U/S, labs)? Why? @ -None What meds were considered but not given or refused? Why? @ -None Did you discuss the management of the patient with other professionals (professionals i.e. , PA, CARPENTRY INSTRUCTOR, lab, RT, psych nurse, social science manager, helmet hat sweatband puncher, teacher, senior credit officer, caseworker protective services)? Give summary @ -No Was smoking cessation discussed for >3mins.? @ -No Was critical care preformed (if so, how long)? @ -No Were there social determinants of health that impacted care today? How? (Homelessness, low income, unemployed, alcoholism, drug addiction, transportation, low edu. Level, literacy, decrease access to med. care, detention, rehab)? @ -No Was there de-escalation of care discussed even if they declined (Discuss DNR or withdrawal of care, Hospice)? DNR status @ -No What co-morbidities impacted this encounter? (DM, HTN, Smoking, COPD, CAD, Cancer, CVA, ARF, Chemo, Hep., AIDS, mental health diagnosis, sleep apnea, m orbid obesity)? @ -Hypertension, CAD, morbid obesity, sleep apnea Was patient admitted / discharged? Hospital course, mention meds given and route, prescriptions, significant lab abnormalities, going to OR and other pertinent info. @ -Admit The patient was seen and evaluated, 67-year-old male with extensive cardiac history presenting with chest pain and hypertension. Patient was treated with m ultiple doses of IV and oral antihypertensives, IV pain medications and antiemetics. Despite this patient remained mildly hypertensive with persistent pain in the right chest. X-rays were unremarkable labs were unremarkable. Patient was admitted for accelerated hypertension with chest pain as well as nausea and vomiting. Undiagnosed new problem with uncertain prognosis? @ -No Drug Therapy requiring intensive monitoring for toxicity (Heparin, Nitro, Insulin, Cardizem)? @ -No Were any procedures done? @ -No Diagnosis/symptom? @ -Hypertension, chest pain Acute, or Chronic, or Acute on Chronic? @ -Acute Uncomplicated (without systemic symptoms) or Complicated (systemic symptoms)? @ -Default Side effects of treatment? @ -No Exacerbation, Progression, or Severe Exacerbation? @ -No Poses a threat to life or bodily function? How? (Chest pain, [place], [place], pneumonia, PE, COPD, DKA, ARF, appy, cholecystitis, CVA, Diverticulitis, Homicidal, Suicidal, threat to staff... and all critical care pts) @ -Yes Diagnosis/symptom? @ -Nausea vomiting Acute, or Chronic, or Acute on Chronic? @ -Acute Uncomplicated (without systemic symptoms) or Complicated (systemic symptoms)? @ -Default Side effects of treatment? @ -None Exacerbation, Progression, or Severe Exacerbation] @ -No Poses a threat to life or bodily function? @ -Unlikely Disposition Clinical Impression: Chest pain Disposition: ADMITTED IP TO THIS HOSP Condition: Stable Is patient prescribed a controlled substance at d/c from ED?: No
[2023-03-20 02:08] LABS: ALT 29 U/L (4-49); AST 32 U/L (17-59); African American GFR (CKD) >90 (>60 ml/min/1.73 sqM); Albumin 4.5 g/dL (3.5-5.0); Alkaline Phosphatase 176 U/L (38-126); Anion Gap 11 mmol/L; Blood Urea Nitrogen 22 mg/dL (9-20); Calcium 9.3 mg/dL (8.4-10.2); Carbon Dioxide 23 mmol/L (22-30); Chloride 108 mmol/L (98-107); Glucose 229 mg/dL (74-99); Magnesium 2.1 mg/dL (1.6-2.3); Non-African American GFR(CKD) 82 (>60 ml/min/1.73 sqM); Potassium 3.9 mmol/L (3.5-5.1); Sodium 142 mmol/L (137-145); Total Bilirubin 0.5 mg/dL (0.2-1.3); Total Protein 7.5 g/dL (6.3-8.2)
[2023-03-20] MEDS: ONDANSETRON 4 MG/2 ML VIAL IVP STA (02:49)
[2023-03-20] MEDS: MORPHINE SULFATE 4 MG/ML SYRINGE IVP STA ×2 (02:50→03:54)
[2023-03-20] MEDS: SODIUM CHLORIDE 0.9% 1,000 ML IV ONE (02:53)
[2023-03-20] MEDS: hydrALAZINE HCL 20 MG/ML 1 ML VIAL IVP STA (03:51)
[2023-03-20] MEDS: FAMOTIDINE 20 MG/2 ML VIAL IV STA (03:52)
[2023-03-20] MEDS: MAG HYDROX/AL HYDROX/SIMETH 30 ML, HYOSCYAMINE ELIXIR 10 ML, LIDOCAINE VISCOUS 2% 10 ML PO STA (03:55)
[2023-03-20] MEDS: cloNIDine HCL 0.1 MG TAB PO STA (05:43)
[2023-03-20] MEDS: HYDROmorphone 1 MG/ML 1 ML SYRINGE IVP STA (05:43)
[2023-03-20] MEDS ORDERED: NALOXONE 0.4 MG/ML 1 ML VIAL IV PRN (05:47)
[2023-03-20] MEDS: ASPIRIN 81 MG PO SCH (09:28)
[2023-03-20] MEDS: amLODIPine 5 MG TAB PO SCH (09:28)
[2023-03-20] MEDS: PANTOPRAZOLE 40 MG TABLET PO SCH (09:29)
[2023-03-20] MEDS: ATORVASTATIN 40 MG TAB PO SCH (09:29)
[2023-03-20] MEDS: LOSARTAN 25 MG TAB PO SCH (09:29)
[2023-03-20] MEDS: APIXABAN 5 MG TAB PO SCH (09:29)
[2023-03-20] MEDS: AMIODARONE 200 MG TAB PO SCH (09:29)
[2023-03-20] MEDS: ISOSORBIDE MONONITRATE ER 30 MG TAB.ER.24H PO SCH (09:33)
--- NOTE | 2023-03-20 10:36 | P.CRDCN ---
History of Present Illness History of present illness: HISTORY OF PRESENT ILLNESS: This is a 67-year-old male with a past medical history significant for coronary artery disease with chronic total occlusion of RCA, hypertension, hyperlipidemi a, diabetes, and paroxysmal atrial fibrillation. Patient follows with Dr. Mcdonough at [facility]. We have been asked to see the patient in consultation for chest pain. Patient examined at the bedside in the emergency room. Patient states yesterday morning he woke up around 8 AM with chest discomfort. He states it felt like a sharp stabbing pain in the middle of his chest. He also reports feeling diaphoretic. He came to the hospital for further evaluation. The patient did not receive sublingual nitro. He states he did receive 3 doses of morphine which relieved his pain. At the time of examination, he denies any further episodes of chest pain or pressure. The patient gives further history that he underwent an ablation in the fall 2022 at [facility] which was not successful and he was started on amiodarone. He reports he had a second ablation performed about 6 weeks ago. He is maintaining sinus mechanism. He reports having a cardiac catheterization performed about a week or 2 before his second ablation. He states he was told he had 1 completely blocked artery and h is other arteries did not require stenting. DIAGNOSTICS: - EKG reveals sinus mechanism with no signs of acute ischemia. - Chest xray negative for acute process - Laboratory data: WBC 10.9. Hemoglobin 14.2. Platelet count 202. Sodium 142. Potassium 3.9. BUN 22. Creatinine 0.97. Magnesium 2.1. Troponin negative x 2. - Current home cardiac medications include aspirin 81 mg daily, amlodipine 5 mg daily, losartan 25 mg daily, Lipitor 40 mg daily, Eliquis 5 mg twice a day, amiodarone 200 mg daily, and Lasix 20 mg every 48 hours. - Most recent echocardiogram obtained in January 2022 revealed ejection fraction 55 to 60%, mild MR, mild TR - Cardiac catheterization history: January 2022 revealing chronic total occlusion of the RCA which fills by ipsilateral and contralateral collaterals. Mild to moderate nonobstructive disease involving the left coronary system, normal left-sided filling pressures REVIEW OF SYSTEMS: At the time of my exam: CONSTITUTIONAL: Denies fever or chills. HEENT: Denies blurred vision, vision changes, or eye pain. Denies hemoptysis CARDIOVASCULAR: Denies chest pain. Denies orthopnea. Denies PND. Denies palpitations RESPIRATORY: Denies shortness of breath. GASTROINTESTINAL: Denies abdominal pain. Denies nausea or vomiting. HEMATOLOGIC: Denies bleeding disorders. GENITOURINARY: Denies any blood in urine. SKIN: Denies pruitis. Denies rash. PHYSICAL EXAM: VITAL SIGNS: Reviewed. GENERAL: Well-developed in no acute distress. HEENT: Head is normocephalic. Pupils are equal, round. Sclerae anicteric. Mucous membranes of the mouth are moist. Neck supple. No JVD or thyromegaly LUNGS: Respirations even and unlabored. Lungs essentially clear to auscultation bilaterally. HEART: Regular rate and rhythm. S1 and S2 heard. ABDOMEN: Soft. Nondistended. Nontender. EXTREMITIES: Normal range of motion. No clubbing or cyanosis. Peripheral pulses intact. No lower extremity edema NEUROLOGIC: Awake and alert. Oriented x 3. ASSESSMENT: Chest pain, atypical, troponin negative x 2 Paroxysmal atrial fibrillation with recent ablation, 6 weeks ago at [place] History of previous unsuccessful ablation, 2022 at [place] Coronary artery disease with chronic total occlusion of RCA and mild to moderate nonobstructive disease involving left coronary system Hypertension Hyperlipidemia Diabetes PLAN: An acute coronary event has been ruled out Resume home cardiac medications Add Imdur 30mg daily Obtain records from [facility] of recent cardiac cath Pending review of records, patient may be discharged home this afternoon and follow up with his primary compliance director Nurse practitioner note has been reviewed by physician. Signing provider agrees with the documented findings, assessment, and plan of care documented by FULL STACK PYTHON DEVELOPER as a scribe. Past Medical History Past Medical History: Atrial Fibrillation, COPD, Diabetes Mellitus, Deep Vein Thrombosis (DVT), Hyperlipidemia, Hypertension, Osteoarthritis (OA), Prostate Disorder, Pulmonary Embolus (PE), Renal Disease, Skin Disorder Additional Past Medical History / Comment(s): "small heart attacks", gout, kidney stones. back pain. kidney function 40%, hypokalemia; wound Rt buttock - using sitz baths cardioversion 08/02/22 History of Any Multi-Drug Resistant Organisms: None Reported Past Surgical History: Cholecystectomy, Heart Catheterization, Orthopedic Surgery Additional Past Surgical History / Comment(s): Cholecystectomy with hernia repair , Bilateral cataract surgery, left knee arthroscopy, ORIF left knee open reduction and internal fixation after injury, pain procedures, cardiac ablation Past Anesthesia/Blood Transfusion Reactions: No Reported Reaction Past Psychological History: No Psychological Hx Reported Smoking Status: Former smoker Past Alcohol Use History: None Reported Past Drug Use History: None Reported - Past Family History Father History Unknown: Yes Family Medical History: Cancer Additional Family Medical History / Comment(s): . Mother History Unknown: Yes Family Medical History: Cancer Additional Family Medical History / Comment(s): . Brother(s) Family Medical History: No Reported History Additional Family Medical History / Comment(s): from overdose Sister(s) Family Medical History: No Reported History Additional Family Medical History / Comment(s): Patient has 2 sisters and mother from drug overdose after chronic pain syndrome from low back pain. Medications and Allergies Home Medications Medication Instructions Recorded Confirmed Type allopurinoL [Zyloprim] 100 mg PO DAILY 08/08/14 03/20/23 History Montelukast [Singulair] 10 mg PO HS 10/21/17 03/20/23 History Apixaban [Eliquis] 5 mg PO BID 07/15/20 03/20/23 History Insulin Detemir [Levemir Flextouch 20 units SQ HS 07/15/20 03/20/23 History Pen] oxyCODONE HCL/ACETAMINOPHEN 1 tab PO Q6H PRN 11/01/20 03/20/23 History [oxyCODONE HCL/ACETAMINOPHEN 7.5-325] Baclofen 10 mg PO TID 07/25/22 03/20/23 History Tamsulosin HCl [Flomax] 0.4 mg PO DAILY 07/25/22 03/20/23 History Aspirin EC [Ecotrin Low Dose] 81 mg PO DAILY 08/03/22 03/20/23 History Gabapentin [Neurontin] 200 mg PO TID 08/03/22 03/20/23 History ALPRAZolam [Xanax] 0.5 mg PO BID PRN 11/01/22 03/20/23 History Ergocalciferol [Vitamin D2 (1250 1,250 mcg PO FR 11/01/22 03/20/23 History Mcg = 33775 Iu)] Furosemide [Lasix] 20 mg PO Q48H 11/01/22 03/20/23 History Pantoprazole [Protonix] 40 mg PO DAILY 11/01/22 03/20/23 History Potassium Chloride [Potassium 20 meq PO Q48H 11/01/22 03/20/23 History Chloride ER (K-Dur GEQ)] Sertraline [Zoloft] 100 mg PO DAILY 11/01/22 03/20/23 History Amiodarone [Cordarone] 200 mg PO DAILY 12/26/22 03/20/23 History Atorvastatin [Lipitor] 40 mg PO DAILY 12/26/22 03/20/23 History Glimepiride [Amaryl] 4 mg PO BID 12/26/22 03/20/23 History Ondansetron [Zofran] 4 mg PO DAILY@1800 12/26/22 03/20/23 History Doxycycline Hyclate 100 mg PO DAILY 03/20/23 03/20/23 History Levalbuterol Hfa Inhaler [Xopenex 2 puff INHALATION RT-Q6H PRN 03/20/23 03/20/23 History Hfa Inhaler] Lidocaine 5% Oint [Xylocaine 5% 1 applic TOPICAL Q2H PRN 03/20/23 03/20/23 History Oint] Losartan [Cozaar] 25 mg PO DAILY 03/20/23 03/20/23 History amLODIPine [Norvasc] 5 mg PO DAILY 03/20/23 03/20/23 History Allergies Allergy/AdvReac Type Severity Reaction Status Date / Time insulin glargine AdvReac Diarrhea Verified 03/20/23 07:51 [From Lantus U-100 Insulin] Physical Exam Vitals: Vital Signs Temp Pulse Resp BP Pulse Ox 03/20/23 08:53 56 L 18 136/71 98 03/20/23 06:25 60 18 173/67 99 03/20/23 05:48 61 18 187/83 99 03/20/23 04:43 60 18 178/71 97 03/20/23 04:00 60 18 181/90 97 03/20/23 03:45 58 L 18 174/91 99 03/20/23 03:00 57 L 18 183/88 99 03/20/23 00:56 97.7 F 68 22 209/91 97 Intake and Output 03/19/23 03/20/23 03/20/23 22:59 06:59 14:59 Other: Weight 102.058 kg Results 03/20/23 01:01 03/20/23 01:01 Cardiac Enzymes 03/20/23 03/20/23 03/20/23 Range/Units 01:01 01:01 05:00 AST 32 (17-59) U/L Troponin I <0.012 0.016 (0.000-0.034) ng/mL Coagulation 03/20/23 Range/Units 01:01 PT 9.8 L (10.0-12.5) sec APTT 24.6 (22.0-30.0) sec CBC 03/20/23 Range/Units 01:01 WBC 10.9 H (3.8-10.6) k/uL RBC 4.70 (4.30-5.90) m/uL Hgb 14.2 (13.0-17.5) gm/dL Hct 42.6 (39.0-53.0) % Plt Count 202 (150-450) k/uL Comprehensive Metabolic Panel 03/20/23 Range/Units 01:01 Sodium 142 (137-145) mmol/L Potassium 3.9 (3.5-5.1) mmol/L Chloride 108 H (98-107) mmol/L Carbon Dioxide 23 (22-30) mmol/L BUN 22 H (9-20) mg/dL Creatinine 0.97 (0.66-1.25) mg/dL Glucose 229 H (74-99) mg/dL Calcium 9.3 (8.4-10.2) mg/dL AST 32 (17-59) U/L ALT 29 (4-49) U/L Alkaline Phosphatase 176 H (38-126) U/L Total Protein 7.5 (6.3-8.2) g/dL Albumin 4.5 (3.5-5.0) g/dL Current Medications Generic Name Dose Route Start Last Admin Trade Name Freq PRN Reason Stop Dose Admin Amiodarone HCl 200 mg 03/20/23 09:00 03/20/23 09:29 Amiodarone 200 Mg Tab PO 200 mg DAILY JOSE Administration Amlodipine Besylate 5 mg 03/20/23 09:00 03/20/23 09:28 Amlodipine 5 Mg Tab PO 5 mg DAILY JOSE Administration Apixaban 5 mg 03/20/23 09:00 03/20/23 09:29 Apixaban 5 Mg Tab PO 5 mg BID JOSE Administration Protocol Aspirin 81 mg 03/20/23 09:00 03/20/23 09:28 Aspirin 81 Mg PO 81 mg DAILY [facility] Administration Atorvastatin Calcium 40 mg 03/20/23 09:00 03/20/23 09:29 Atorvastatin 40 Mg Tab PO 40 mg DAILY JOSE Administration Furosemide 20 mg 03/21/23 09:00 Furosemide 20 Mg Tab PO Q48H [facility] Isosorbide Mononitrate 30 mg 03/20/23 09:00 03/20/23 09:33 Isosorbide Mononitrate Er 30 Mg Tab.Er.24h PO 30 mg DAILY JOSE Administration Losartan Potassium 25 mg 03/20/23 09:00 03/20/23 09:29 Losartan 25 Mg Tab PO 25 mg DAILY [facility] Administration Morphine Sulfate 4 mg 03/20/23 05:47 Morphine Sulfate 4 Mg/Ml Syringe IV Q4HR PRN Severe Pain (Scale 7 to 10) Naloxone HCl 0.2 mg 03/20/23 05:47 Naloxone 0.4 Mg/Ml 1 Ml Vial IV Q2M PRN Opioid Reversal Ondansetron HCl 4 mg 03/20/23 05:47 Ondansetron 4 Mg/2 Ml Vial IVP Q8HR PRN Nausea And Vomiting Pantoprazole Sodium 40 mg 03/20/23 07:30 03/20/23 09:29 Pantoprazole 40 Mg Tablet PO 40 mg [id number] JOSE Administration Intake and Output 03/19/23 03/20/23 03/20/23 22:59 06:59 14:59 Other: Weight 102.058 kg 03/20/23 01:01 03/20/23 01:01
[2023-03-20] MEDS ORDERED: hydrALAZINE HCL 20 MG/ML 1 ML VIAL IVP PRN (12:01)
[2023-03-20] MEDS ORDERED: DEXTROSE 50% SYRINGE 50 ML IVP PRN ×2 (12:15)
--- NOTE | 2023-03-20 12:18 | P.HPIM ---
History of Present Illness This is a pleasant 67 years old male with past medical history of multiple medical problems including atrial fibrillation on eliquis (which he says he was compliant with and was taken at home) and the venous thrombosis/pulmonary e mbolism. COPD and he follows up with Dr. mcguire . His PCP is Dr. Long. And mechanical product design engineer Dr. Ramos. Hip presents because of vomiting and chills which is started yesterday. And this was associated with right sided chest pain for which she was admitted to the hospital last night for chest pain and cardiology evaluation. Patient states that his pain is on the right side of the chest, nonradiating, about 6-9/10 on admission, currently slightly better 8/10, felt like dull and sharp with no precipitating factors and relieved with morphine. No dyspnea but he has some cough and yellowish phlegm. His also the complaint of from vomiting he vomited 3 times prior to hospitalization and 3 times in the emergency room. As per staff he was complaining from epigastric abdominal pain but when I saw t he patient he was complaining from pain in the right lower quadrant with some tenderness and rebound tenderness but there is no guarding. His pain about 5- 6/10, felt like sharp, laid on make it worse and not better Patient has little bowel movement yesterday which was within usual for him once a day. Patient has chronic back pain and weakness in the right lower extremity for the last 8-9 years He is diabetic and uses 20 units of Levemir at bedtime and 2 units with meals, he also on glimepiride 2 mg twice daily. Patient denies alcohol or illicit drugs, his previous smoker. Vitals are stable but patient looks a dry because of the vomiting and not eating and drinking. He received hydralazine and clonidine in the emergency room and currently systolic blood pressure is still slightly elevated around 170 INR, BMP and liver enzymes are unremarkable Troponin 2 are negative Cardiology team are planning to discharge the patient to clear him for discharge today CBC slightly elevated at 10.9, glucose slightly up at 220. Review of Systems Review of systems CONSTITUTIONAL: No fever, no malaise, no fatigue. HEENT: No recent visual problems or hearing problems. Denied any sore throat. CARDIOVASCULAR: No orthopnea, PND, no palpitations, no syncope. PULMONARY: No shortness of breath, no hemoptysis. GASTROINTESTINAL: No diarrhea, no nausea, . Normoactive bowel sounds. NEUROLOGICAL: No headaches, no weakness, no numbness. HEMATOLOGICAL: Denies any bleeding or petechiae. GENITOURINARY: Denies any burning micturition, frequency, or urgency. MUSCULOSKELETAL/RHEUMATOLOGICAL: Denies any joint pain, swelling, or any muscle pain. ENDOCRINE: Denies any polyuria or polydipsia. Past Medical History Past Medical History: Atrial Fibrillation, COPD, Diabetes Mellitus, Deep Vein Thrombosis (DVT), Hyperlipidemia, Hypertension, Osteoarthritis (OA), Prostate Disorder, Pulmonary Embolus (PE), Renal Disease, Skin Disorder Additional Past Medical History / Comment(s): "small heart attacks", gout, kidney stones. back pain. kidney function 40%, hypokalemia; wound Rt buttock - using sitz baths cardioversion 08/02/22 History of Any Multi-Drug Resistant Organisms: None Reported Past Surgical History: Cholecystectomy, Heart Catheterization, Orthopedic Surgery Additional Past Surgical History / Comment(s): Cholecystectomy with hernia repair , Bilateral cataract surgery, left knee arthroscopy, ORIF left knee open reduction and internal fixation after injury, pain procedures, cardiac ablation Past Anesthesia/Blood Transfusion Reactions: No Reported Reaction Past Psychological History: No Psychological Hx Reported Smoking Status: Former smoker Past Alcohol Use History: None Reported Past Drug Use History: None Reported - Past Family History Father History Unknown: Yes Family Medical History: Cancer Additional Family Medical History / Comment(s): . Mother History Unknown: Yes Family Medical History: Cancer Additional Family Medical History / Comment(s): . Brother(s) Family Medical History: No Reported History Additional Family Medical History / Comment(s): from overdose Sister(s) Family Medical History: No Reported History Additional Family Medical History / Comment(s): Patient has 2 sisters and mother from drug overdose after chronic pain syndrome from low back pain. Medications and Allergies Home Medications Medication Instructions Recorded Confirmed Type allopurinoL [Zyloprim] 100 mg PO DAILY 08/08/14 03/20/23 History Montelukast [Singulair] 10 mg PO HS 10/21/17 03/20/23 History Apixaban [Eliquis] 5 mg PO BID 07/15/20 03/20/23 History Insulin Detemir [Levemir Flextouch 20 units SQ HS 07/15/20 03/20/23 History Pen] oxyCODONE HCL/ACETAMINOPHEN 1 tab PO Q6H PRN 11/01/20 03/20/23 History [oxyCODONE HCL/ACETAMINOPHEN 7.5-325] Baclofen 10 mg PO TID 07/25/22 03/20/23 History Tamsulosin HCl [Flomax] 0.4 mg PO DAILY 07/25/22 03/20/23 History Aspirin EC [Ecotrin Low Dose] 81 mg PO DAILY 08/03/22 03/20/23 History Gabapentin [Neurontin] 200 mg PO TID 08/03/22 03/20/23 History ALPRAZolam [Xanax] 0.5 mg PO BID PRN 11/01/22 03/20/23 History Ergocalciferol [Vitamin D2 (1250 1,250 mcg PO FR 11/01/22 03/20/23 History Mcg = 96275 Iu)] Furosemide [Lasix] 20 mg PO Q48H 11/01/22 03/20/23 History Pantoprazole [Protonix] 40 mg PO DAILY 11/01/22 03/20/23 History Potassium Chloride [Potassium 20 meq PO Q48H 11/01/22 03/20/23 History Chloride ER (K-Dur GEQ)] Sertraline [Zoloft] 100 mg PO DAILY 11/01/22 03/20/23 History Amiodarone [Cordarone] 200 mg PO DAILY 12/26/22 03/20/23 History Atorvastatin [Lipitor] 40 mg PO DAILY 12/26/22 03/20/23 History Glimepiride [Amaryl] 4 mg PO BID 12/26/22 03/20/23 History Ondansetron [Zofran] 4 mg PO DAILY@1800 12/26/22 03/20/23 History Doxycycline Hyclate 100 mg PO DAILY 03/20/23 03/20/23 History Levalbuterol Hfa Inhaler [Xopenex 2 puff INHALATION RT-Q6H PRN 03/20/23 03/20/23 History Hfa Inhaler] Lidocaine 5% Oint [Xylocaine 5% 1 applic TOPICAL Q2H PRN 03/20/23 03/20/23 History Oint] Losartan [Cozaar] 25 mg PO DAILY 03/20/23 03/20/23 History amLODIPine [Norvasc] 5 mg PO DAILY 03/20/23 03/20/23 History Allergies Allergy/AdvReac Type Severity Reaction Status Date / Time insulin glargine AdvReac Diarrhea Verified 03/20/23 07:51 [From Lantus U-100 Insulin] Physical Exam Vitals: Vital Signs Temp Pulse Resp BP Pulse Ox 03/20/23 11:35 63 18 177/89 97 03/20/23 08:53 56 L 18 136/71 98 03/20/23 06:25 60 18 173/67 99 03/20/23 05:48 61 18 187/83 99 03/20/23 04:43 60 18 178/71 97 03/20/23 04:00 60 18 181/90 97 03/20/23 03:45 58 L 18 174/91 99 03/20/23 03:00 57 L 18 183/88 99 03/20/23 00:56 97.7 F 68 22 209/91 97 Intake and Output 03/19/23 03/20/23 03/20/23 22:59 06:59 14:59 Other: Weight 102.058 kg GENERAL: The patient is alert and oriented x3, not in any acute distress. Well developed, well nourished. HEENT: Pupils are round and equally reacting to light. EOMI. No scleral icterus. No conjunctival pallor. Normocephalic, atraumatic. No pharyngeal erythema. No thyromegaly. CARDIOVASCULAR: S1 and S2 present. No murmurs, rubs, or gallops. PULMONARY: Chest is clear to auscultation, no wheezing , no crackles. -ABDOMEN: Soft RLQ tenderness, with mild rebound tenderness but no guarding, non-distended, normoactive bowel sounds. No palpable organomegaly. MUSCULOSKELETAL: No joint swelling or deformity. EXTREMITIES: No cyanosis, clubbing, or pedal edema. NEUROLOGICAL: Gross neurological examination did not reveal any focal deficits. SKIN: No rashes. no petechiae. Results CBC & Chem 7: 03/20/23 01:01 03/20/23 01: Labs: Abnormal Lab Results - Last 24 Hours (Table) 03/20/23 03/20/23 03/20/23 Range/Units 01:01 01: 01: WBC 10.9 H (3.8-10.6) k/uL RDW 17.0 H (11.5-15.5) % Neutrophils # 8.9 H (1.3-7.7) k/uL PT 9.8 L (10.0-12.5) sec Chloride 108 H (98-107) mmol/L BUN 22 H (9-20) mg/dL Glucose 229 H (74-99) mg/dL Alkaline Phosphatase 176 H (38-126) U/L Assessment and Plan Assessment: Chest pain, cartilage from closely. Patient is on Eliquis. Vomiting and right abdominal pain, rule out bowel obstruction, appendicitis, renal colic, biliary colic versus other. paroxysmal atrial fibrillation Hypertension, controlled on admission Diabetes mellitus Hyperlipidemia History of DVT/PE COPD no acute exacerbation Plan: We going to switch Eliquis and to Lovenox subcutaneous surgery Cardiology team on the case Surgical team consult, Start IV hydration Order CT of the abdomen Continue symptomatic treatment for nausea vomiting and others Normal saline at 100 mL per hour Levemir 10 units daily and insulin sliding scale Labs and medication were reviewed.. Continue same treatment. Continue with symptomatic treatment. Resume home medication. Monitor labs and vitals. DVT and GI prophylaxis. Further recommendations as per clinical course of the patient DVT prophylaxis: Subcutaneous Lovenox GI Prophylaxis: Ppi Prognosis is guarded
[2023-03-20] MEDS: ONDANSETRON 4 MG/2 ML VIAL IVP PRN (12:29)
[2023-03-20] MEDS: MORPHINE SULFATE 4 MG/ML SYRINGE IV PRN (12:33)
[2023-03-20] MEDS: SODIUM CHLORIDE 0.9% 500 ML 500 ML IV ONE (12:34)
[2023-03-20] MEDS: SODIUM CHLORIDE 0.9% 1,000 ML IV SCH (12:35)
[2023-03-20] MEDS: PANTOPRAZOLE 40 MG/10 ML VIAL IVP SCH (12:57)
[2023-03-20] MEDS: INSULIN ASPART (NovoLOG) 100 UNIT/ML VIAL SQ SCH (13:02)
[2023-03-20 13:03] LABS: Glucose,Whole Blood 150 mg/dL (70-110)
--- NOTE | 2023-03-20 13:29 | P.GSCN ---
History of Present Illness Consult date: 03/20/23 History of present illness: CHIEF COMPLAINT: Chest pain and abdominal pain HISTORY OF PRESENT ILLNESS: This is a 67-year-old male who presents the hospital with complaints of chest pain and lower abdominal pain with nausea and vomiting. Patient reports his symptoms started at 10 PM last night. He has had multiple episodes of vomiting. He feels bloated. He did have a small bowel movement yesterday and has been having flatus today. He denies any blood in the stools or blood in the emesis. He reports not having pain like this before. Pain radiates across the lower abdomen. Denies any history of diverticulitis. Last colonoscopy reports was 3 years ago with colon polyps. He does have a history of constipation and surgical history of cholecystectomy and umbilical hernia pair. Does have cardiac history with coronary artery disease and A-fib. He is on Eliquis for DVT and PE last dose was yesterday evening. Patient was able to tolerate clear liquids in the ER today. PAST MEDICAL HISTORY: See below PAST SURGICAL HISTORY: See below MEDICATIONS: See below ALLERGIES: See below SOCIAL HISTORY: No illicit drug use. Prior history of smoking and alcohol use REVIEW OF SYSTEMS: CONSTITUTIONAL: Denies fever or chills. HEENT: Denies blurred vision, vision changes, or eye pain. Denies hemoptysis CARDIOVASCULAR: Denies chest pain or pressure. RESPIRATORY: No shortness of breath. GASTROINTESTINAL: See HPI for pertinent findings HEMATOLOGIC: Denies bleeding disorders. GENITOURINARY: Denies any blood in urine or increased urinary frequency. SKIN: Denies pruitis. Denies rash. PHYSICAL EXAM: VITAL SIGNS: Reviewed GENERAL: Well-developed in no acute distress. HEENT: No sclera icterus. Extraocular movements grossly intact. Moist buccal mucosa. Head is atraumatic, normocephalic. No nasal drainage. ABDOMEN: Soft. Mildly distended. Tenderness palpation across the lower abdomen and mid abdomen NEUROLOGIC: Alert and oriented. Cranial nerves II through XII grossly intact. LABORATORY DATA: WBC 10.9 Hgb 14.2 platelets 202 INR 0.9 Sodium is 142 potassium 3.9 creatinine 0.97 Total bilirubin 0.5 AST 32 ALT 29 alk phos 179 troponins negative x 2 lipase 94 IMAGING: Chest x-ray no acute process ASSESSMENT: 1. Lower abdominal pain with nausea and vomiting 2. Chest pain, evaluated by cardiology service PLAN: -CT scan abdomen pelvis pending -Further recommendations forthcoming depending on CT scan results -Continue clear liquid diet -Continue IV fluids -Continue pain management Thank you for this consultation Physician Nozzle Operator note has been reviewed by physician. Signing provider agrees with the documented findings, assessment, and plan of care. Past Medical History Past Medical History: Atrial Fibrillation, COPD, Diabetes Mellitus, Deep Vein Thrombosis (DVT), Hyperlipidemia, Hypertension, Osteoarthritis (OA), Prostate Disorder, Pulmonary Embolus (PE), Renal Disease, Skin Disorder Additional Past Medical History / Comment(s): "small heart attacks", gout, kidney stones. back pain. kidney function 40%, hypokalemia; wound Rt buttock - using sitz baths cardioversion 08/02/22 History of Any Multi-Drug Resistant Organisms: None Reported Past Surgical History: Cholecystectomy, Heart Catheterization, Orthopedic Surgery Additional Past Surgical History / Comment(s): Cholecystectomy with hernia repair , Bilateral cataract surgery, left knee arthroscopy, ORIF left knee open reduction and internal fixation after injury, pain procedures, cardiac ablation Past Anesthesia/Blood Transfusion Reactions: No Reported Reaction Past Psychological History: No Psychological Hx Reported Smoking Status: Former smoker Past Alcohol Use History: None Reported Past Drug Use History: None Reported - Past Family History Father History Unknown: Yes Family Medical History: Cancer Additional Family Medical History / Comment(s): . Mother History Unknown: Yes Family Medical History: Cancer Additional Family Medical History / Comment(s): . Brother(s) Family Medical History: No Reported History Additional Family Medical History / Comment(s): from overdose Sister(s) Family Medical History: No Reported History Additional Family Medical History / Comment(s): Patient has 2 sisters and mother from drug overdose after chronic pain syndrome from low back pain. Medications and Allergies Home Medications Medication Instructions Recorded Confirmed Type allopurinoL [Zyloprim] 100 mg PO DAILY 08/08/14 03/20/23 History Montelukast [Singulair] 10 mg PO HS 10/21/17 03/20/23 History Apixaban [Eliquis] 5 mg PO BID 07/15/20 03/20/23 History Insulin Detemir [Levemir Flextouch 20 units SQ HS 07/15/20 03/20/23 History Pen] oxyCODONE HCL/ACETAMINOPHEN 1 tab PO Q6H PRN 11/01/20 03/20/23 History [oxyCODONE HCL/ACETAMINOPHEN 7.5-325] Baclofen 10 mg PO TID 07/25/22 03/20/23 History Tamsulosin HCl [Flomax] 0.4 mg PO DAILY 07/25/22 03/20/23 History Aspirin EC [Ecotrin Low Dose] 81 mg PO DAILY 08/03/22 03/20/23 History Gabapentin [Neurontin] 200 mg PO TID 08/03/22 03/20/23 History ALPRAZolam [Xanax] 0.5 mg PO BID PRN 11/01/22 03/20/23 History Ergocalciferol [Vitamin D2 (1250 1,250 mcg PO FR 11/01/22 03/20/23 History Mcg = 02514 Iu)] Furosemide [Lasix] 20 mg PO Q48H 11/01/22 03/20/23 History Pantoprazole [Protonix] 40 mg PO DAILY 11/01/22 03/20/23 History Potassium Chloride [Potassium 20 meq PO Q48H 11/01/22 03/20/23 History Chloride ER (K-Dur GEQ)] Sertraline [Zoloft] 100 mg PO DAILY 11/01/22 03/20/23 History Amiodarone [Cordarone] 200 mg PO DAILY 12/26/22 03/20/23 History Atorvastatin [Lipitor] 40 mg PO DAILY 12/26/22 03/20/23 History Glimepiride [Amaryl] 4 mg PO BID 12/26/22 03/20/23 History Ondansetron [Zofran] 4 mg PO DAILY@1800 12/26/22 03/20/23 History Doxycycline Hyclate 100 mg PO DAILY 03/20/23 03/20/23 History Levalbuterol Hfa Inhaler [Xopenex 2 puff INHALATION RT-Q6H PRN 03/20/23 03/20/23 History Hfa Inhaler] Lidocaine 5% Oint [Xylocaine 5% 1 applic TOPICAL Q2H PRN 03/20/23 03/20/23 History Oint] Losartan [Cozaar] 25 mg PO DAILY 03/20/23 03/20/23 History amLODIPine [Norvasc] 5 mg PO DAILY 03/20/23 03/20/23 History Allergies Allergy/AdvReac Type Severity Reaction Status Date / Time insulin glargine AdvReac Diarrhea Verified 03/20/23 07:51 [From Lantus U-100 Insulin] Surgical - Exam Vital Signs Temp Pulse Resp BP Pulse Ox 97.7 F 68 22 209/91 97 03/20/23 00:56 03/20/23 00:56 03/20/23 00:56 03/20/23 00:56 03/20/23 00:56 Results - Labs 03/20/23 01:01 03/20/23 01:01 Abnormal Lab Results - Last 24 Hours (Table) 03/20/23 03/20/23 03/20/23 Range/Units 01:01 01:01 01:01 WBC 10.9 H (3.8-10.6) k/uL RDW 17.0 H (11.5-15.5) % Neutrophils # 8.9 H (1.3-7.7) k/uL PT 9.8 L (10.0-12.5) sec Chloride 108 H (98-107) mmol/L BUN 22 H (9-20) mg/dL Glucose 229 H (74-99) mg/dL POC Glucose (mg/dL) (70-110) mg/dL Alkaline Phosphatase 176 H (38-126) U/L 03/20/23 Range/Units 13:02 WBC (3.8-10.6) k/uL RDW (11.5-15.5) % Neutrophils # (1.3-7.7) k/uL PT (10.0-12.5) sec Chloride (98-107) mmol/L BUN (9-20) mg/dL Glucose (74-99) mg/dL POC Glucose (mg/dL) 150 H (70-110) mg/dL Alkaline Phosphatase (38-126) U/L Diabetes panel 03/20/23 Range/Units 01:01 Sodium 142 (137-145) mmol/L Potassium 3.9 (3.5-5.1) mmol/L Chloride 108 H (98-107) mmol/L Carbon Dioxide 23 (22-30) mmol/L BUN 22 H (9-20) mg/dL Creatinine 0.97 (0.66-1.25) mg/dL Glucose 229 H (74-99) mg/dL Calcium 9.3 (8.4-10.2) mg/dL AST 32 (17-59) U/L ALT 29 (4-49) U/L Alkaline Phosphatase 176 H (38-126) U/L Total Protein 7.5 (6.3-8.2) g/dL Albumin 4.5 (3.5-5.0) g/dL Calcium panel 03/20/23 Range/Units 01:01 Calcium 9.3 (8.4-10.2) mg/dL Albumin 4.5 (3.5-5.0) g/dL Pituitary panel 03/20/23 Range/Units 01:01 Sodium 142 (137-145) mmol/L Potassium 3.9 (3.5-5.1) mmol/L Chloride 108 H (98-107) mmol/L Carbon Dioxide 23 (22-30) mmol/L BUN 22 H (9-20) mg/dL Creatinine 0.97 (0.66-1.25) mg/dL Glucose 229 H (74-99) mg/dL Calcium 9.3 (8.4-10.2) mg/dL Adrenal panel 03/20/23 Range/Units 01:01 Sodium 142 (137-145) mmol/L Potassium 3.9 (3.5-5.1) mmol/L Chloride 108 H (98-107) mmol/L Carbon Dioxide 23 (22-30) mmol/L BUN 22 H (9-20) mg/dL Creatinine 0.97 (0.66-1.25) mg/dL Glucose 229 H (74-99) mg/dL Calcium 9.3 (8.4-10.2) mg/dL Total Bilirubin 0.5 (0.2-1.3) mg/dL AST 32 (17-59) U/L ALT 29 (4-49) U/L Alkaline Phosphatase 176 H (38-126) U/L Total Protein 7.5 (6.3-8.2) g/dL Albumin 4.5 (3.5-5.0) g/dL
--- NOTE | 2023-03-20 13:48 | CT ---
EXAMINATION TYPE: CT abdomen pelvis w con DATE OF EXAM: 03/20/2023 COMPARISON: 07/15/2020 INDICATION: abdominal pain, nausea, vomiting DLP: 1731.2 mGycm, Automated exposure control for dose reduction was used. CONTRAST: 100ml mL of Isovue 300. Study performed without Oral Contrast TECHNIQUE: Axial images were obtained from above the diaphragm to the pubic rami in the axial plane a t 5 mm thick sections. Reconstructed images are reviewed on the computer in the coronal plane. FINDINGS: Limited CT sections are obtained the lung bases. There is a 1.1 cm low density nodule within the ant erior right lung. Series 201 image 4.. Coronary artery calcification is present. CT ABDOMEN: Liver: Normal Spleen: Normal Pancreas: Normal Adrenal glands: Left adrenal gland nodule measures 1.9 cm. A small nodule on the lateral right adrena l gland measures 1.3 cm. Gallbladder: Surgically absent Kidneys: No masses are evident. No hydronephrosis is present. No cysts are present. There is a 0.7 cm calcification within the posterior mid left kidney. Some mild perinephric stranding may be presen t bilaterally. Aorta: Vascular calcification is within the aorta. Inferior vena cava: Normal. CT PELVIS: Loops of bowel within the abdomen and pelvis are normal. The study is without oral contrast limit ing bowel evaluation Appendix: Normal as visualized. Urinary bladder: Normal. Genitourinary structures: Prostate is prominent. Calcification is present. Osseous structures: No suspicious lytic or sclerotic lesions. IMPRESSION: 1. No acute abdomen or pelvic abnormality. 2. Mild nodularity within the adrenal glands. 3. 1.1 cm nodule anterior right middle lobe within the [id number]. Follow-up recommended.
[2023-03-20 17:08] LABS: Glucose,Whole Blood 88 mg/dL (70-110)
[2023-03-20] MEDS: ENOXAPARIN 100 MG/ML SYRINGE SQ SCH (20:15)
[2023-03-20] MEDS ORDERED: ENOXAPARIN 80 MG/0.8 ML SYRINGE SQ SCH (21:00)
[2023-03-20 21:04] LABS: Glucose,Whole Blood 87 mg/dL (70-110)
[2023-03-20] MEDS: ACETAMINOPHEN TAB 325 MG TAB PO PRN (22:34)
[2023-03-20] MEDS: INSULIN DETEMIR (LEVEMIR) 100 UNIT/ML SYR SQ SCH (22:36)
[2023-03-21 06:24] LABS: Glucose,Whole Blood 86 mg/dL (70-110)
[2023-03-21 08:50] LABS: Basophils # (A) 0.02 X 10*3/uL (0.00-0.10); Basophils % (A) 0.2 %; Eosinophils # (A) 0.03 X 10*3/uL (0.04-0.35); Eosinophils % (A) 0.3 %; HGB 11.4 g/dL (13.0-17.0); Lymphocytes # (A) 2.11 X 10*3/uL (0.90-5.00); Lymphocytes % (A) 20.7 %; MCH 28.7 pg (27.0-32.0); MCHC 31.7 g/dL (32.0-37.0); MCV 90.7 FL (80.0-97.0); Mean Platelet Volume 10.5 FL (9.5-12.2); Monocytes # (A) 0.85 X 10*3/uL (0.20-1.00); Monocytes % (A) 8.3 %; NRBC Per 100 WBC 0 X 10*3/uL (0.00-0.01); Neutrophils # (A) 7.17 X 10*3/uL (1.80-7.70); Neutrophils % (A) 70.2 %; Platelet Count 191 X 10*3/uL (140-440); RBC 3.97 X 10*6/uL (4.40-5.60); WBC 10.21 X 10*3/uL (4.50-10.00)
[2023-03-21] MEDS: FUROSEMIDE 20 MG TAB PO SCH (09:06)
[2023-03-21 09:15] LABS: ALT 23 U/L (10-49); AST 21 U/L (14-35); Albumin 3.5 g/dL (3.8-4.9); Albumin/Globulin Ratio 1.84 Ratio (1.60-3.17); Alkaline Phosphatase 100 U/L (41-126); Bilirubin, Conjugated <0.20 mg/dL (0.20-0.40); Bilirubin,Unconjugated >0.20 mg/dL (0.20-1.00); Blood Urea Nitrogen 13.1 mg/dL (9.0-27.0); Calcium 8.8 mg/dL (8.7-10.3); Carbon Dioxide 26.4 mmol/L (21.6-31.8); Chloride 106 mmol/L (96-109); Globulin 1.9 g/dL (1.6-3.3); Glucose 82 mg/dL (70-110); Potassium 3.9 mmol/L (3.5-5.5); Sodium 140 mmol/L (135-145); Total Bilirubin 0.4 mg/dL (0.3-1.2); Total Protein 5.4 g/dL (6.2-8.2)
--- NOTE | 2023-03-21 10:25 | P.PN ---
Subjective HISTORY OF PRESENT ILLNESS: This is a 67-year-old male with a past medical history significant for coronary artery disease with chronic total occlusion of RCA, hypertension, hyperlipidemia, diabetes, and paroxysmal atrial fibrillation. Patient follows with Dr. Mcdonough at [facility]. We have been asked to see the patient in consultation for chest pain. Patient examined at the bedside in the emergency room. Patient states yesterday morning he woke up around 8 AM with chest discomfort. He states it felt like a sharp stabbing pain in the middle of his chest. He also reports feeling diaphoretic. He came to the hospital for further evaluation. The patient did not receive sublingual nitro. He states he did receive 3 doses of morphine which relieved his pain. At the time of examination, he denies any further episodes of chest pain or pressure. The patient gives further history that he underwent an ablation in the fall 2022 at [facility] which was not successful and he was started on amiodarone. He reports he had a second ablation performed about 6 weeks ago. He is maintaining sinus mechanism. He reports having a cardiac catheterization performed about a week or 2 before his second ablation. He states he was told he had 1 completely blocked artery and his other arteries did not require stenting. DIAGNOSTICS: - EKG reveals sinus mechanism with no signs of acute ischemia. - Chest xray negative for acute process - Laboratory data: WBC 10.9. Hemoglobin 14.2. Platelet count 202. Sodium 142. Potassium 3.9. BUN 22. Creatinine 0.97. Magnesium 2.1. Troponin negative x 2. - Current home cardiac medications include aspirin 81 mg daily, amlodipine 5 mg daily, losartan 25 mg daily, Lipitor 40 mg daily, Eliquis 5 mg twice a day, amiodarone 200 mg daily, and Lasix 20 mg every 48 hours. - Most recent echocardiogram obtained in January 2022 revealed ejection fraction 55 to 60%, mild MR, mild TR - Cardiac catheterization history: January 2022 revealing chronic total occlusion of the RCA which fills by ipsilateral and contralateral collaterals. Mild to moderate nonobstructive disease involving the left coronary system, normal left-sided filling pressures March 21, 2023 Patient examined this morning at the bedside. Patient denies any further episodes of chest pain or pressure. He denies shortness of breath. Blood pressure stable with a recent reading of 149/62. Telemetry reveals sinus mech anism. No signs of atrial fibrillation. [facility] was contacted yesterday for records of his recent cardiac catheterization. The personal secretary was told by [facility] medical records that the patient had a heart catheterization performed recently but there was no procedure note documented from the physician and she was unable to fax anything. PHYSICAL EXAM: VITAL SIGNS: Reviewed. GENERAL: Well-developed in no acute distress. HEENT: Head is normocephalic. Pupils are equal, round. Sclerae anicteric. Mucous membranes of the mouth are moist. Neck supple. No JVD or thyromegaly LUNGS: Respirations even and unlabored. Lungs essentially clear to auscultation bilaterally. HEART: Regular rate and rhythm. S1 and S2 heard. ABDOMEN: Soft. Nondistended. Nontender. EXTREMITIES: Normal range of motion. No clubbing or cyanosis. Peripheral pulses intact. No lower extremity edema NEUROLOGIC: Awake and alert. Oriented x 3. 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 Please reconsult if needed. Nurse practitioner note has been reviewed by physician. Signing provider agrees with the documented findings, assessment, and plan of care documented by [employer] as a scribe. Objective - Vital Signs Vital signs: Vital Signs Temp 98.2 F 03/21/23 07:00 Pulse 50 L 03/21/23 07:00 Resp 16 03/21/23 07:00 BP 149/62 03/21/23 07:00 Pulse Ox 96 03/21/23 08:39 FiO2 Intake & Output 03/20/23 03/21/23 03/21/23 18:59 06:59 18:59 Weight 102.058 kg Other: # Voids 1 - Labs CBC & Chem 7: 03/21/23 05:14 03/21/23 05:14 Labs: Abnormal Lab Results - Last 24 Hours (Table) 03/20/23 03/20/23 03/21/23 Range/Units 12:44 13:02 05:14 WBC 10.21 H (4.50-10.00) X 10*3/uL RBC 3.97 L (4.40-5.60) X 10*6/uL Hgb 11.4 L (13.0-17.0) g/dL Hct 36.0 L (39.6-50.0) % MCHC 31.7 L (32.0-37.0) g/dL RDW 18.0 H (11.5-14.5) % Eosinophils # 0.03 L (0.04-0.35) X 10*3/uL POC Glucose (mg/dL) 150 H (70-110) mg/dL Plasma Lactic Acid Mani 2.5 H* (0.7-2.0) mmol/L Total Protein (6.2-8.2) g/dL Albumin (3.8-4.9) g/dL 03/21/23 Range/Units 05:14 WBC (4.50-10.00) X 10*3/uL RBC (4.40-5.60) X 10*6/uL Hgb (13.0-17.0) g/dL Hct (39.6-50.0) % MCHC (32.0-37.0) g/dL RDW (11.5-14.5) % Eosinophils # (0.04-0.35) X 10*3/uL POC Glucose (mg/dL) (70-110) mg/dL Plasma Lactic Acid Mani (0.7-2.0) mmol/L Total Protein 5.4 L (6.2-8.2) g/dL Albumin 3.5 L (3.8-4.9) g/dL
[2023-03-21 12:45] LABS: Glucose,Whole Blood 126 mg/dL (70-110)
--- NOTE | 2023-03-21 15:32 | P.CNPUL ---
History of Present Illness Consult date: 03/21/23 Requesting physician: Edison Ching Reason for consult: abnormal CXR/CT Chief complaint: Solitary pulmonary nodule, right lung. History of present illness: Pulmonary consult dated March 21, 2023. This is a 81-year-old male who actually sees my partner for COPD. The patient's primary care physician is Dr. Long. The patient has a history of tobacco use for 55 years, although he does not smoke currently. He apparently uses albuterol at home, along with a nebulizer. We were consulted because the patient ended up with a CT scan, showing a small nodule, in the right lung. This can be evaluated and followed up as an outpatient. In fact, the patient already sees my partner, and my partner can follow-up with his pulmonary nodule. The patient was admitted with a diagnosis of chest pain, and is currently being evaluated for that. The patient states as mentioned above, that he smoked for 55 years, and does not smoke currently. His medical history includes atrial fibrillation, COPD, diabetes, DVT, hyperlipidemia, hypertension, osteoarthritis, pulmonary embolism, among other things. White count 10.21, hemoglobin 11.4, hematocrit 36, platelet count 191,000. Sodium 140, potassium 3.9, chlorides 106, CO2 26, BUN 13 and creatinine 1. Albumin is 3.5. Chest x-ray was normal. CT scan of the abdomen and pelvis, showed a 1.1 cm nodule, anterior right middle lung. Follow-up was recommended. Review of Systems REVIEW OF SYSTEMS: CONSTITUTIONAL: [Negative.] NEUROLOGIC: [ Negative.] HEENT: [ Negative.] CARDIAC: Chest pain. PULMONARY: Chronic shortness of breath. GI: [Negative.] : [Negative.] RHEUMATOLOGIC: [ Negative.] IMMUNOLOGIC: [ Negative.] ENDOCRINE: [Negative. ] DERMATOLOGIC: [Negative.] Past Medical History Past Medical History: Atrial Fibrillation, COPD, Diabetes Mellitus, Deep Vein Thrombosis (DVT), Hyperlipidemia, Hypertension, Osteoarthritis (OA), Prostate Disorder, Pulmonary Embolus (PE), Renal Disease, Skin Disorder Additional Past Medical History / Comment(s): "small heart attacks", gout, kidney stones. back pain. kidney function 40%, hypokalemia; wound Rt buttock - using sitz baths cardioversion 08/02/22 History of Any Multi-Drug Resistant Organisms: None Reported Past Surgical History: Cholecystectomy, Heart Catheterization, Orthopedic Surgery Additional Past Surgical History / Comment(s): Cholecystectomy with hernia repair , Bilateral cataract surgery, left knee arthroscopy, ORIF left knee open reduction and internal fixation after injury, pain procedures, cardiac ablation Past Anesthesia/Blood Transfusion Reactions: No Reported Reaction Past Psychological History: No Psychological Hx Reported Additional Psychological History / Comment(s): claustrophobic Smoking Status: Former smoker Past Alcohol Use History: None Reported Additional Past Alcohol Use History / Comment(s): Patient is smoker 1 ppd since he was 11 years of age. Past Drug Use History: None Reported - Past Family History Father History Unknown: Yes Family Medical History: Cancer Additional Family Medical History / Comment(s): . Mother History Unknown: Yes Family Medical History: Cancer Additional Family Medical History / Comment(s): . Brother(s) Family Medical History: No Reported History Additional Family Medical History / Comment(s): from overdose Sister(s) Family Medical History: No Reported History Additional Family Medical History / Comment(s): Patient has 2 sisters and mother from drug overdose after chronic pain syndrome from low back pain. Medications and Allergies Home Medications Medication Instructions Recorded Confirmed Type allopurinoL [Zyloprim] 100 mg PO DAILY 08/08/14 03/20/23 History Montelukast [Singulair] 10 mg PO HS 10/21/17 03/20/23 History Apixaban [Eliquis] 5 mg PO BID 07/15/20 03/20/23 History Insulin Detemir [Levemir Flextouch 20 units SQ 07/15/20 03/20/23 History Pen] oxyCODONE HCL/ACETAMINOPHEN 1 tab PO Q6H PRN 11/01/20 03/20/23 History [oxyCODONE HCL/ACETAMINOPHEN 7.5-325] Baclofen 10 mg PO TID 07/25/22 03/20/23 History Tamsulosin HCl [Flomax] 0.4 mg PO DAILY 07/25/22 03/20/23 History Aspirin EC [Ecotrin Low Dose] 81 mg PO DAILY 08/03/22 03/20/23 History Gabapentin [Neurontin] 200 mg PO TID 08/03/22 03/20/23 History ALPRAZolam [Xanax] 0.5 mg PO BID PRN 11/01/22 03/20/23 History Ergocalciferol [Vitamin D2 (1250 1,250 mcg PO FR 11/01/22 03/20/23 History Mcg = 03581 Iu)] Furosemide [Lasix] 20 mg PO Q48H 11/01/22 03/20/23 History Pantoprazole [Protonix] 40 mg PO DAILY 11/01/22 03/20/23 History Potassium Chloride [Potassium 20 meq PO Q48H 11/01/22 03/20/23 History Chloride ER (K-Dur GEQ)] Sertraline [Zoloft] 100 mg PO DAILY 11/01/22 03/20/23 History Amiodarone [Cordarone] 200 mg PO DAILY 12/26/22 03/20/23 History Atorvastatin [Lipitor] 40 mg PO DAILY 12/26/22 03/20/23 History Glimepiride [Amaryl] 4 mg PO BID 12/26/22 03/20/23 History Ondansetron [Zofran] 4 mg PO DAILY@1800 12/26/22 03/20/23 History Doxycycline Hyclate 100 mg PO DAILY 03/20/23 03/20/23 History Levalbuterol Hfa Inhaler [Xopenex 2 puff INHALATION RT-Q6H PRN 03/20/23 03/20/23 History Hfa Inhaler] Lidocaine 5% Oint [Xylocaine 5% 1 applic TOPICAL Q2H PRN 03/20/23 03/20/23 History Oint] Losartan [Cozaar] 25 mg PO DAILY 03/20/23 03/20/23 History amLODIPine [Norvasc] 5 mg PO DAILY 03/20/23 03/20/23 History Allergies Allergy/AdvReac Type Severity Reaction Status Date / Time insulin glargine AdvReac Diarrhea Verified 03/20/23 07:51 [From Lantus U-100 Insulin] Physical Exam Osteopathic Statement: *. No significant issues noted on an osteopathic structural exam other than those noted in the History and Physical/Consult. Vitals: Vital Signs Temp Pulse Pulse Pulse Resp BP BP 03/21/23 14:27 97.8 F 53 L 18 148/73 03/21/23 08:39 03/21/23 07:00 98.2 F 50 L 16 149/62 03/21/23 03:11 98.1 F 51 L 17 03/20/23 19:18 98.2 F 56 L 16 133/46 03/20/23 17:19 98.2 F 56 L 17 03/20/23 15:34 56 L 18 125/57 BP Pulse Ox 03/21/23 14:27 97 03/21/23 08:39 96 03/21/23 07:00 95 03/21/23 03:11 117/50 97 03/20/23 19:18 96 03/20/23 17:19 163/72 98 03/20/23 15:34 96 Intake and Output 03/21/23 03/21/23 03/21/23 06:59 14:59 22:59 Intake Total 358 Balance 358 Intake: Oral 358 Other: # Voids 1 1 No acute distress, oriented 3. Currently on room air. No respiratory issues. HEENT examination is grossly unremarkable. Mucous membranes are moist. No oral lesions. Neck supple. Full range of motion. No adenopathy thyromegaly or neck vein distention. Cardiovascular examination reveals regular rhythm rate. S1-S2 normal. No S3 or S4. No discernible murmur noted. Heart rate 53 bpm. Lungs reveal clear breath sounds. Breath sounds are equal bilaterally. No adventitious lung sounds including wheezes rhonchi or crackles. Room air saturation is 97%. Abdomen soft bowel sounds are heard. No masses or tenderness. Extremities are intact. No cyanosis clubbing or edema. Skin is without rash or lesion. Neurologic examination is brief but nonfocal. Results - Laboratory Findings CBC and BMP: 03/21/23 05:14 03/21/23 05:14 PT/INR, D-dimer PT 9.8 sec (10.0-12.5) L 03/20/23 01:01 INR 0.9 (<1.2) 03/20/23 01:01 Abnormal lab findings: Abnormal Labs 03/20/23 03/20/23 03/20/23 01:01 01:01 01:01 WBC 10.9 H RBC Hgb Hct MCHC RDW 17.0 H Neutrophils # 8.9 H Eosinophils # PT 9.8 L Chloride 108 H BUN 22 H Glucose 229 H POC Glucose (mg/dL) Hemoglobin A1c Plasma Lactic Acid Mani Alkaline Phosphatase 176 H Total Protein Albumin 03/20/23 03/20/2303/21/24 12:44 13:02 05:14 WBC RBC Hgb Hct MCHC RDW Neutrophils # Eosinophils # PT Chloride BUN Glucose POC Glucose (mg/dL) 150 H Hemoglobin A1c 6.3 H Plasma Lactic Acid Mani 2.5 H* Alkaline Phosphatase Total Protein Albumin 03/21/23 03/21/23 03/21/23 05:14 05:14 12:44 WBC 10.21 H RBC 3.97 L Hgb 11.4 L Hct 36.0 L MCHC 31.7 L RDW 18.0 H Neutrophils # Eosinophils # 0.03 L PT Chloride BUN Glucose POC Glucose (mg/dL) 126 H Hemoglobin A1c Plasma Lactic Acid Mani Alkaline Phosphatase Total Protein 5.4 L Albumin 3.5 L - Diagnostic Findings Chest x-ray: image reviewed CT scan - chest: image reviewed Assessment and Plan Assessment: 1.1 cm pulmonary nodule, anterior right midlung. History of COPD, currently being followed by my partner, status post 55 years of tobacco use. Chest pain, currently being evaluated by the primary service and cardiology. History of atrial fibrillation. History of diabetes mellitus. History of DVT/pulmonary embolism. History of hypertension. History of hyperlipidemia. Status postcardiac ablation. Multiple other medical problems and comorbidities. Plan: Plan dated March 21, 2023. The patient will follow-up with my partner, Dr. Russ, and he can continue follow-up the lesion, in the right midlung. The patient currently has a established diagnosis of COPD. He was a heavy smoker for 55 years. He does not smoke currently. He was admitted, with a diagnosis of chest pain. That is currently being evaluated by the primary service, and cardiology. The patient should follow-up with with my partner, in the next 2 to 3 weeks. Time with Patient: Greater than 30
--- NOTE | 2023-03-21 15:38 | P.PN ---
Subjective Progress Note Date: 03/21/23 CHIEF COMPLAINT: Abdominal pain HISTORY OF PRESENT ILLNESS: Patient reports his abdominal pain has resolved. He has had no further vomiting. Chest pain is resolved. He had a CT scan abdomen and pelvis that showed no acute abdomen or pelvic abnormality. Mild nodularity within the adrenal glands. 1.1 cm nodule anterior right middle lobe. Patient tolerated the full liquids. He reports that he is hungry. Afebrile. WBC 10.2 PHYSICAL EXAM: VITAL SIGNS: Reviewed. GENERAL: Well-developed in no acute distress. ABDOMEN: Soft. Nondistended. Nontender. NEUROLOGIC: Alert and oriented. Cranial nerves II through XII grossly intact. ASSESSMENT: 1. Abdominal pain with vomiting now resolved. No acute findings on CT scan PLAN: -Advance diet to regular -Encourage patient to ambulate -No surgical intervention planned -Patient can be discharged from surgical standpoint Physician Medical Detailist note has been reviewed by physician. Signing provider agrees with the documented findings, assessment, and plan of care. I have personally seen and examined the patient, reviewed the L[employer]ALEGAL /PAs history, e xam and MDM and agree with the assessment and plan as written. Based on total visit time, I have performed more than 50% of the visit. As above: Patient doing well today. He tolerated regular food. He had a good bowel movement. He wants to go home. Objective - Vital Signs Vital signs: Vital Signs Temp 97.8 F 03/21/23 14:27 Pulse 53 L 03/21/23 14:27 Resp 18 03/21/23 14:27 BP 148/73 03/21/23 14:27 Pulse Ox 97 03/21/23 14:27 FiO2 Intake & Output 03/20/23 03/21/23 03/21/23 18:59 06:59 18:59 Intake Total 358 Balance 358 Weight 102.058 kg Intake: Oral 358 Other: # Voids 1 1 - Labs CBC & Chem 7: 03/21/23 05:14 03/21/23 05:14 Labs: Abnormal Lab Results - Last 24 Hours (Table) 03/21/23 03/21/23 03/21/23 Range/Units 05:14 05:14 05:14 WBC 10.21 H (4.50-10.00) X 10*3/uL RBC 3.97 L (4.40-5.60) X 10*6/uL Hgb 11.4 L (13.0-17.0) g/dL Hct 36.0 L (39.6-50.0) % MCHC 31.7 L (32.0-37.0) g/dL RDW 18.0 H (11.5-14.5) % Eosinophils # 0.03 L (0.04-0.35) X 10*3/uL POC Glucose (mg/dL) (70-110) mg/dL Hemoglobin A1c 6.3 H (<=6.0) % Total Protein 5.4 L (6.2-8.2) g/dL Albumin 3.5 L (3.8-4.9) g/dL 03/21/23 Range/Units 12:44 WBC (4.50-10.00) X 10*3/uL RBC (4.40-5.60) X 10*6/uL Hgb (13.0-17.0) g/dL Hct (39.6-50.0) % MCHC (32.0-37.0) g/dL RDW (11.5-14.5) % Eosinophils # (0.04-0.35) X 10*3/uL POC Glucose (mg/dL) 126 H (70-110) mg/dL Hemoglobin A1c (<=6.0) % Total Protein (6.2-8.2) g/dL Albumin (3.8-4.9) g/dL
[2023-03-21 17:07] LABS: Glucose,Whole Blood 166 mg/dL (70-110)
[2023-03-21 20:26] LABS: Glucose,Whole Blood 184 mg/dL (70-110)
[2023-03-22 05:49] LABS: Glucose,Whole Blood 109 mg/dL (70-110)
[2023-03-22 07:50] VITALS: RESP 18; TEMP 98
--- NOTE | 2023-03-22 09:53 | P.PN ---
Subjective Progress Note Date: 03/22/23 This is a 81-year-old male who actually sees my partner for COPD. The patient's primary care physician is Dr. Long. The patient has a history of tobacco use for 55 years, although he does not smoke currently. He apparently uses albuterol at home, along with a nebulizer. We were consulted because the patient ended up with a CT scan, showing a small nodule, in the right lung. This can be evaluated and followed up as an outpatient. In fact, the patient already sees my partner, and my partner can follow-up with his pulmonary nodule. The patient was admitted with a diagnosis of chest pain, and is currently being evaluated for that. The patient states as mentioned above, that he smoked for 55 years, and does not smoke currently. His medical history includes atrial fibrillation, COPD, diabetes, DVT, hyperlipidemia, hypertension, osteoarthritis, pulmonary embolism, among other things. White count 10.21, hemoglobin 11.4, hematocrit 36, platelet count 191,000. Sodium 140, potassium 3.9, chlorides 106, CO2 26, BUN 13 and creatinine 1. Albumin is 3.5. Chest x-ray was normal. CT scan of the abdomen and pelvis, showed a 1.1 cm nodule, anterior right middle lung. Follow-up was recommended. The patient is seen today March 22, 2023 in follow-up on the regular medical floor. He is sitting up in bed. Awake and alert in no acute distress. He is maintaining good O2 saturations in the 90s on room air. He is receiving normal saline at 100 MLS per hour. Lovenox for DVT prophylaxis. Blood culture revealing no growth. Blood sugar 109. Objective - Vital Signs Vital signs: Vital Signs Temp 98 F 03/22/23 07:00 Pulse 51 L 03/22/23 07:00 Resp 18 03/22/23 07:00 BP 177/84 03/22/23 07:00 Pulse Ox 99 03/22/23 07:00 FiO2 Intake & Output 03/21/23 03/22/23 03/22/23 18:59 06:59 18:59 Intake Total 598 240 Balance 598 240 Intake: Oral 598 240 Other: # Voids 1 - Exam GENERAL EXAM: Alert, pleasant 67-year-old male, on room air, comfortable in no apparent distress. HEAD: Normocephalic. EYES: Normal reaction of pupils, equal size. NOSE: Clear with pink turbinates. THROAT: No erythema or exudates. NECK: No masses, no JVD. CHEST: No chest wall deformity. LUNGS: Equal air entry with no crackles, wheeze, rhonchi or dullness. CVS: S1 and S2 normal with no audible murmur, regular rhythm. ABDOMEN: No hepatosplenomegaly, normal bowel sounds, no guarding or rigidity. SPINE: No scoliosis or deformity SKIN: No rashes CENTRAL NERVOUS SYSTEM: No focal deficits, tone is normal in all 4 extremities. EXTREMITIES: There is no peripheral edema. No clubbing, no cyanosis. Peripheral pulses are intact. - Labs CBC & Chem 7: 03/21/23 05:14 03/21/23 05:14 Labs: Abnormal Lab Results - Last 24 Hours (Table) 03/21/23 03/21/23 03/21/23 Range/Units 05:14 12:44 17:06 POC Glucose (mg/dL) 126 H 166 H (70-110) mg/dL Hemoglobin A1c 6.3 H (<=6.0) % 03/21/23 Range/Units 20:24 POC Glucose (mg/dL) 184 H (70-110) mg/dL Hemoglobin A1c (<=6.0) % Microbiology - Last 24 Hours (Table) 03/20/23 12:44 Blood Culture - Preliminary Blood Assessment and Plan Assessment: Chest pain, currently being evaluated by the primary service and cardiology 1.1 cm pulmonary nodule, anterior right midlung to be followed up in the outpatient setting History of COPD, currently being followed by my partner, status post 55 years of tobacco use History of atrial fibrillation History of diabetes mellitus History of DVT/pulmonary embolism History of hypertension History of hyperlipidemia Status postcardiac ablation Multiple other medical problems and comorbidities Plan: The patient was seen and evaluated Remains stable and on room air Procalcitonin negative No pulmonary complaints To follow-up in our office regarding pulmonary nodule in the outpatient setting I have personally seen and examined the patient, performed the documentation and the assessment and plan as written. Number of minutes spent on the visit: 10.
[2023-03-22 11:37] LABS: Glucose,Whole Blood 231 mg/dL (70-110)
--- NOTE | 2023-03-22 14:33 | P.PN ---
Subjective Progress Note Date: 03/21/23 67 years old male with past medical history of multiple medical problems including atrial fibrillation on eliquis (which he says he was compliant with and was taken at home) and the venous thrombosis/pulmonary embolism. COPD and he follows up with Dr. mcguire . His PCP is Dr. Long. And teacher ballet Dr. Ramos. Hip presents because of vomiting and chills which is started yesterday. And this was associated with right sided chest pain for which she was admitted to the hospital last night for chest pain and cardiology evaluation. Patient states that his pain is on the right side of the chest, nonradiating, about 6-9/10 on admission, currently slightly better 8/10, felt like dull and sharp with no precipitating factors and relieved with morphine. No dyspnea but he has some cough and yellowish phlegm. His also the complaint of from vomiting he vomited 3 times prior to hospitalization and 3 times in the emergency room. As per staff he was complaining from epigastric abdominal pain but when I saw the patient he was complaining from pain in the right lower quadrant with some tenderness and rebound tenderness but there is no guarding. His pain about 5- 6/10, felt like sharp, laid on make it worse and not better Patient has little bowel movement yesterday which was within usual for him once a day. Patient has chronic back pain and weakness in the right lower extremity for the last 8-9 years He is diabetic and uses 20 units of Levemir at bedtime and 2 units with meals, he also on glimepiride 2 mg twice daily. Patient denies alcohol or illicit drugs, his previous smoker. Vitals are stable but patient looks a dry because of the vomiting and not eating and drinking. He received hydralazine and clonidine in the emergency room and currently systolic blood pressure is still slightly elevated around 170 INR, BMP and liver enzymes are unremarkable Troponin 2 are negative Cardiology team are planning to discharge the patient to clear him for discharge today CBC slightly elevated at 10.9, glucose slightly up at 220. Objective - Vital Signs Vital signs: Vital Signs Temp 98.2 F 03/21/23 07:00 Pulse 50 L 03/21/23 07:00 Resp 16 03/21/23 07:00 BP 149/62 03/21/23 07:00 Pulse Ox 96 03/21/23 08:39 FiO2 Intake & Output 03/20/23 03/21/23 03/21/23 18:59 06:59 18:59 Intake Total 240 Balance 240 Weight 102.058 kg Intake: Oral 240 Other: # Voids 1 - Exam GENERAL: The patient is alert and oriented x3, not in any acute distress. Well developed, well nourished. HEENT: Pupils are round and equally reacting to light. EOMI. No scleral icterus. No conjunctival pallor. Normocephalic, atraumatic. No pharyngeal erythema. No thyromegaly. CARDIOVASCULAR: S1 and S2 present. No murmurs, rubs, or gallops. PULMONARY: Chest is clear to auscultation, no wheezing , no crackles. -ABDOMEN: Soft RLQ tenderness, with mild rebound tenderness but no guarding, non-distended, normoactive bowel sounds. No palpable organomegaly. MUSCULOSKELETAL: No joint swelling or deformity. EXTREMITIES: No cyanosis, clubbing, or pedal edema. NEUROLOGICAL: Gross neurological examination did not reveal any focal deficits. SKIN: No rashes. no petechiae. - Labs CBC & Chem 7: 03/21/23 05:14 03/21/23 05:14 Labs: Abnormal Lab Results - Last 24 Hours (Table) 03/20/23 03/21/23 03/21/23 Range/Units 12:44 05:14 05:14 WBC 10.21 H (4.50-10.00) X 10*3/uL RBC 3.97 L (4.40-5.60) X 10*6/uL Hgb 11.4 L (13.0-17.0) g/dL Hct 36.0 L (39.6-50.0) % MCHC 31.7 L (32.0-37.0) g/dL RDW 18.0 H (11.5-14.5) % Eosinophils # 0.03 L (0.04-0.35) X 10*3/uL POC Glucose (mg/dL) (70-110) mg/dL Hemoglobin A1c 6.3 H (<=6.0) % Plasma Lactic Acid Mani 2.5 H* (0.7-2.0) mmol/L Total Protein (6.2-8.2) g/dL Albumin (3.8-4.9) g/dL 03/21/23 03/21/23 Range/Units 05:14 12:44 WBC (4.50-10.00) X 10*3/uL RBC (4.40-5.60) X 10*6/uL Hgb (13.0-17.0) g/dL Hct (39.6-50.0) % MCHC (32.0-37.0) g/dL RDW (11.5-14.5) % Eosinophils # (0.04-0.35) X 10*3/uL POC Glucose (mg/dL) 126 H (70-110) mg/dL Hemoglobin A1c (<=6.0) % Plasma Lactic Acid Mani (0.7-2.0) mmol/L Total Protein 5.4 L (6.2-8.2) g/dL Albumin 3.5 L (3.8-4.9) g/dL Assessment and Plan Assessment: Chest pain, cartilage from closely. Patient is on Eliquis. Vomiting and right abdominal pain, rule out bowel obstruction, appendicitis, renal colic, biliary colic versus other. paroxysmal atrial fibrillation Hypertension, controlled on admission Diabetes mellitus Hyperlipidemia History of DVT/PE COPD no acute exacerbation Plan: We going to switch Eliquis and to Lovenox subcutaneous surgery Cardiology team on the case Surgical team consult, Start IV hydration Order CT of the abdomen Continue symptomatic treatment for nausea vomiting and others Normal saline at 100 mL per hour Levemir 10 units daily and insulin sliding scale Labs and medication were reviewed.. Continue same treatment. Continue with s ymptomatic treatment. Resume home medication. Monitor labs and vitals. DVT and GI prophylaxis. Further recommendations as per clinical course of the patient DVT prophylaxis: Subcutaneous Lovenox GI Prophylaxis: Ppi Prognosis is guarded
[2023-03-22 16:24] VITALS: BP 94/48; PULSE 55
== END 2023-03-22 16:30 | disposition home or self-care (01) ==
LOC: EC 00:55 → 6NMEDSUR 05:47
PROVIDERS: ADMIT Hospitalist; ATTEND Hospitalist
DX: R07.89 Other chest pain (principal); J44.9 Chronic obstructive pulmonary disease, unspecified; E11.9 Type 2 diabetes mellitus without complications; I48.0 Paroxysmal atrial fibrillation; E78.5 Hyperlipidemia, unspecified; I10 Essential (primary) hypertension; I25.10 Atherosclerotic heart disease of native coronary artery without angina pectoris; I65.21 Occlusion and stenosis of right carotid artery; Z87.891 Personal history of nicotine dependence; Z86.711 Personal history of pulmonary embolism; Z86.718 Personal history of other venous thrombosis and embolism; Z79.899 Other long term (current) drug therapy; Z79.01 Long term (current) use of anticoagulants; Z79.4 Long term (current) use of insulin; Z79.82 Long term (current) use of aspirin; Z79.84 Long term (current) use of oral hypoglycemic drugs; Z88.8 Allergy status to other drugs, medicaments and biological substances
CPT/HCPCS: 96376 ×3; 96361 ×3; 96365; 96366 ×3; 96372 ×3; 96375; 99285; 36415; 94760 ×2; 93005; 80053; 80048; 80076; 83605; 83690; 83735; 84484; 85025 ×2; 85610; 85730; 87040; 83036; 84145; 71046; 74177; G0378 ×3; J2270 ×3; J0360; J2405; J1650 ×3; J3490; J1170; C9113 ×3; Q9967; 36430

== ENCOUNTER → 2023-03-25 | Outpatient (CLI) | payer MEDICARE ==
--- NOTE | 2023-03-25 13:25 | XR ---
EXAMINATION TYPE: XR lumbar spine 2 or 3V DATE OF EXAM: 03/25/2023 CLINICAL HISTORY: pain TECHNIQUE: Three views of the lumbar spine are submitted. COMPARISON: None. FINDINGS: There are 5 lumbar type vertebral bodies identified. The lumbar spine shows satisfactory alignment w ithout evidence of acute fracture or dislocation. Vertebral body heights are within normal limits. Severe disc desiccation at L3-4, L4-5 and L5-S1. Degenerative endplate marrow changes. Facet joint ar thropathy and ventral spondylosis. The overlying soft tissue appears unremarkable. IMPRESSION: No acute fracture or dislocation is seen in the lumbar spine. ICD 10 NO FRACTURE, INITIAL EVALUATION
== END | disposition home or self-care (01) ==
LOC: RADXRMAIN 12:56
PROVIDERS: ATTEND Internal Medicine Geriatric Medicine
DX: M51.26 Other intervertebral disc displacement, lumbar region (principal)
CPT/HCPCS: 72100

== ENCOUNTER → 2023-04-14 | Outpatient (CLI) | payer MEDICARE ==
[2023-04-14 13:09] VITALS: BP 137/67; PULSE 101; RESP 15; TEMP 98.5
--- NOTE | 2023-04-14 14:09 | P.PAINPG ---
PQRS Measure Charge Sheet Comment: A 68 yr old male with a history of severe and chronic low back pain secondary to lumbar degenerative disc diseases and lumbar spondylosis with facet arthropathy presents today for evaluation. Pain level is provoked at 6 /10 in intensity, localized in the lower lumbar spine, sharp in character w occasional radiation of pain L & R of midline and down the RLE and R foot. Pain is provoked by lifting. Pain is alleviated with medications, topicals, injections, alternating ice and heat, PT x 6 wks which ended in Dec 2022 though it was unhelpful, chiropractic treatments semi weekly x 6 mo which he is currently in, laying supine and elevating the lower extremities and rest. Oswestry axial pain score of 28. Interventional pain procedures completed include LESI L4-L5 #3 Patient is currently on Oxycodone Patient denies any side effects of the medication(s), denies excessive drowsiness or sleepiness, denies suicidal ideation and reports that the current pain medication is helping to control the pain and improve activities of daily living. Patient denies any motor or sensory deficits. Patient denies any fever or night sweats, denies any change in the bowel movements or urination. Physical Examination: -Constitutional: Cooperative. Not in acute distress . -HEENT: Neck is supple. No lymphadenopathy. No thyromegaly. Normal thyroid size. Eyes: No ptosis , no icterus, no photophobia. ENT: No auditory deficits. Normal oropharynx. No Thrush. - Respiratory: Chest clear to auscultations bilaterally. No wheezing. No rhonchi. - Cardiovascular: Regular rate and rhythm. S1 / S2 , no S3 , no S4. - Gastrointestinal: Abdomen soft no tenderness. Bowel sounds positive in all four quadrants. No organomegaly. - Genitourinary: Deferred. - Neurologic: Cranial nerve II to XII intact. No focal neurological deficits. - Psychatric: Alert & oriented x 3. Matching mood & appropriate affect. Judgment and insight intact. - Lymphatic: No Lymphadenopathy. - Musculoskeletal: Cervical spine: Muscle bulk/ tone/ strength in the bilateral upper extremities normal. Facet loading test cervical area positive. Lumbar spine: Motor bulk/ tone/ strength lower extremities , thigh and legs : 5/5 Deep tendon reflexes : Normal Knee Jerk. Normal Ankle Jerk . Vertebral body tenderness to palpation over Lumbar Facet Loading Test positive Straight Leg Raise: positive at 30 degrees right side/ left side Gaenslen's Test positive Sacral spine : Severe tenderness over the Sacroiliac joint: right side / left side Range of motion: Flexion of the lumbar spine <60 degrees Range of motion: Extension of the lumbar spine <20 degrees Gaenslen's Test positive Shelbie test: positive right side / left side Imaging: X ray of the lumbar spine from 03/25/23 reviewed Assessment and plan: Chronic low back pain secondary to lumbar degenerative disc disease , lumbar spondylosis with facet arthropathy without myelopathy Recommendation of MRI lumbar spine M51.36. Follow up in 1-2 wks for a re evaluation. All patient questions answered I have spent 31 minutes on patient care today. Dr Medina was available by phone for the evaluation of this patient. The time was used to review the medical records including relevant urine studies and Prescription history (MAPs), review of the available imaging, evaluation and examination of the patient, coordination of care with the medical staff and if applicable referring physicians, as well as creation of the medical record PQRS Narrative: Smoking Status Heavy tobacco smoker Hx Alcohol Use (MH) No Home Medications: Ambulatory Orders allopurinoL [Zyloprim] 100 mg PO DAILY 08/08/14 Montelukast [Singulair] 10 mg PO HS 10/21/17 Apixaban [Eliquis] 5 mg PO BID 07/15/20 Insulin Detemir [Levemir Flextouch Pen] 20 units SQ HS 07/15/20 oxyCODONE HCL/ACETAMINOPHEN [oxyCODONE HCL/ACETAMINOPHEN 7.5-325] 1 tab PO Q6H PRN 11/01/20 Baclofen 10 mg PO TID 07/25/22 Tamsulosin HCl [Flomax] 0.4 mg PO DAILY 07/25/22 Aspirin EC [Ecotrin Low Dose] 81 mg PO DAILY 08/03/22 Gabapentin [Neurontin] 200 mg PO TID 08/03/22 ALPRAZolam [Xanax] 0.5 mg PO BID PRN 11/01/22 Ergocalciferol [Vitamin D2 (1250 Mcg = 16886 Iu)] 1,250 mcg PO FR 11/01/22 Furosemide [Lasix] 20 mg PO Q48H 11/01/22 Pantoprazole [Protonix] 40 mg PO DAILY 11/01/22 Potassium Chloride [Potassium Chloride ER (K-Dur GEQ)] 20 meq PO Q48H 11/01/22 Sertraline [Zoloft] 100 mg PO DAILY 11/01/22 Amiodarone [Cordarone] 200 mg PO DAILY 12/26/22 Atorvastatin [Lipitor] 40 mg PO DAILY 12/26/22 Glimepiride [Amaryl] 4 mg PO BID 12/26/22 Ondansetron [Zofran] 4 mg PO DAILY@1800 12/26/22 Doxycycline Hyclate 100 mg PO DAILY 03/20/23 Levalbuterol Hfa Inhaler [Xopenex Hfa Inhaler] 2 puff INHALATION RT-Q6H PRN 03/20/23 Lidocaine 5% Oint [Xylocaine 5% Oint] 1 applic TOPICAL Q2H PRN 03/20/23 Losartan [Cozaar] 25 mg PO DAILY 03/20/23 amLODIPine [Norvasc] 5 mg PO DAILY 03/20/23 Isosorbide Mononitrate ER [Imdur] 30 mg PO DAILY 30 Days #30 tab 03/22/23 diazePAM [Valium] 5 mg PO DAILY PRN 1 Days #2 tab 04/14/23 Controlled Substance Measures - Controlled Substance Measures Is patient prescribed a controlled substance at discharge?: No
== END ==
LOC: PNWHC3 11:09
PROVIDERS: ATTEND Specialist
DX: M51.36 Other intervertebral disc degeneration, lumbar region (principal); M47.816 Spondylosis without myelopathy or radiculopathy, lumbar region; G89.29 Other chronic pain; F17.200 Nicotine dependence, unspecified, uncomplicated; E11.9 Type 2 diabetes mellitus without complications; Z79.84 Long term (current) use of oral hypoglycemic drugs; Z79.01 Long term (current) use of anticoagulants; Z79.4 Long term (current) use of insulin; Z79.82 Long term (current) use of aspirin; Z88.8 Allergy status to other drugs, medicaments and biological substances
CPT/HCPCS: 99211

== ENCOUNTER → 2023-08-04 | Outpatient (CLI) | payer MEDICARE, OTHER ==
--- NOTE | 2023-08-04 21:37 | CT ---
EXAMINATION TYPE: CT lumbar spine wo con DATE OF EXAM: 08/04/2023 COMPARISON: None HISTORY: back pain CT DLP: 1561.8 mGycm CONTRAST: None TECHNIQUE: CT of the lumbar spine is performed on a spiral scan at 3 mm thick sections. Reconstructed images are performed in the coronal and sagittal planes. FINDINGS: T12-L1: No focal disc herniation or significant disc bulge is evident. No spinal canal stenosis or neural foraminal stenosis is present. L1-L2: No focal disc herniation or significant disc bulge is evident. No spinal canal stenosis or n eural foraminal stenosis is present. There is some ill-defined lucency within the mid vertebral body. Underlying metastasis should be considered. L2-L3: Mild disc bulge is present. This has mild anterior thecal sac compression. No AP spinal canal stenosis present. Neural foramen have mild narrowing. Facet degenerative changes are noted L3-L4: There is loss of disc height is level. Residual disc bulge is moderate anterior thecal sac com pression may be slightly greater into the left paracentral region there is moderate left and right fo raminal stenosis. Facet hypertrophy and ligamentum flavum laxity are contributing to the spinal canal narrowing to this level. Well-defined lucency may be within the left vertebral body. Metastatic lesi on is not excluded. L4-L5: There is ossification posterior to the L4 vertebral body in the right paracentral region. This is displacing the right L5 nerve root within the spinal canal. Correlate with right radicular sympto ms. No AP spinal canal stenosis is present. Moderate left and severe right foraminal stenosis present . Vacuum disc phenomenon is present. There is loss of disc height at this level. Endplate spurring is mild anterior thecal sac compression without AP spinal canal stenosis L5-S1: There is loss of disc height is level. Vacuum disc phenomenon is present. Left paracentral end plate spurring is present. No AP spinal canal stenosis is present facet degenerative changes are pres ent. Severe bilateral foraminal stenosis is present, greater on the left. Vertebral alignment appears normal. Vertebral body heights are preserved. IMPRESSION: 1. Degenerative disc change with vacuum disc phenomenon present at L3-4, L4-5, L5-S1. 2. Endplate spurring and calcifications within the spinal canal posterior to L4 likely has L5 radicul ar displacement. 3. Severe foraminal stenosis on the right at L4-5 and bilaterally at L5-S1 greater on the left. 4. There is an ill-defined lucency within the L2 vertebral body. Some additional lucency is within th e left L3 vertebral level. Metastatic lesion should be considered.
--- NOTE | 2023-08-04 21:40 | CT ---
EXAMINATION TYPE: CT cervical spine wo con DATE OF EXAM: 08/04/2023 COMPARISON: None HISTORY: neck pain CT DLP: 644.5 mGycm CONTRAST: None CT of the cervical spine is performed in the axial plane at 2 mm thick sections. Reconstructed image s in the coronal, and sagittal plane are reviewed on the computer. No acute fractures are evident. Vertebral body alignment is normal. There is narrowing of disc height notably at C3-4 and C6-7. Anterior vertebral body spurring is prese nt C6-7. Vertebral body heights are preserved. No spinal canal stenosis is evident Uncovertebral joint hypertrophy contributing to mild right and moderate left foraminal narrowing C3-4 . Moderate left foraminal narrowing is present C4-5. Mild narrowing at C5-6 on the right is present IMPRESSION: 1. Degenerative disc changes C3-4 and C6-7. 2. Foraminal narrowing greatest on the left C3-4 C4-5 level.
== END | disposition home or self-care (01) ==
LOC: RADCTMAIN 09:12
PROVIDERS: ATTEND Family Medicine
DX: M51.37 Other intervertebral disc degeneration, lumbosacral region (principal); M48.061 Spinal stenosis, lumbar region without neurogenic claudication; M47.812 Spondylosis without myelopathy or radiculopathy, cervical region; M51.26 Other intervertebral disc displacement, lumbar region
CPT/HCPCS: 72125; 72131

== ENCOUNTER → 2023-08-25 | Outpatient (CLI) | payer MEDICARE, OTHER ==
[2023-08-25 10:12] VITALS: BP 153/70; PULSE 56; RESP 16
--- NOTE | 2023-08-25 15:04 | P.PAINPG ---
Objective - Vital Signs Vital signs: Vital Signs Temp Pulse 56 L 08/25/23 10:11 Resp 16 08/25/23 10:11 BP 153/70 08/25/23 10:11 Pulse Ox 96 08/25/23 10:11 FiO2 Intake & Output 08/24/23 08/25/23 08/25/23 18:59 06:59 18:59 Weight 102.058 kg PQRS Measure Charge Sheet Mode of Arrival: Ambulatory Comment: A 68 yr old male with a history of severe and chronic low back pain secondary to lumbar degenerative disc diseases and lumbar spondylosis with facet arthropathy presents today for CT results. Pain level is provoked at 6 /10 in intensity, localized in the lower lumbar spine, predominantly axial, sharp in character w occasional radiation of pain R of midline and down the RLE w L foot tingling. Pain is provoked by lifting. Pain is alleviated with medications, topicals, injections, alternating ice and heat, PT x 6 wks which ended in Dec 2022 though it was unhelpful, physician guided home stretching regimen daily since Dec 2022, laying supine and elevating the lower extremities and rest. O swestry axial pain score of 28. Interventional pain procedures completed include LESI L4-L5 #3 Patient is currently on Oxycodone, Lidocaine Patient denies any side effects of the medication(s), denies excessive drowsiness or sleepiness, denies suicidal ideation and reports that the current pain medication is helping to control the pain and improve activities of daily living. Patient denies any motor or sensory deficits. Patient denies any fever or night sweats, denies any change in the bowel movements or urination. Physical Examination: -Constitutional: Cooperative. Not in acute distress . -HEENT: Neck is supple. No lymphadenopathy. No thyromegaly. Normal thyroid size. Eyes: No ptosis , no icterus, no photophobia. ENT: No auditory deficits. Normal oropharynx. No Thrush. - Respiratory: Chest clear to auscultations bilaterally. No wheezing. No rhonchi. - Cardiovascular: Regular rate and rhythm. S1 / S2 , no S3 , no S4. - Gastrointestinal: Abdomen soft no tenderness. Bowel sounds positive in all four quadrants. No organomegaly. - Genitourinary: Deferred. - Neurologic: Cranial nerve II to XII intact. No focal neurological defic its. - Psychatric: Alert & oriented x 3. Matching mood & appropriate affect. Judgment and insight intact. - Lymphatic: No Lymphadenopathy. - Musculoskeletal: Cervical spine: Muscle bulk/ tone/ strength in the bilateral upper extremities normal. Facet loading test cervical area positive. Lumbar spine: Motor bulk/ tone/ strength lower extremities , thigh and legs : 5/5 Deep tendon reflexes : Normal Knee Jerk. Normal Ankle Jerk . Vertebral body tenderness to palpation over L4 Lumbar Facet Loading Test positive Straight Leg Raise: positive at 30 degrees right side/ left side Gaenslen's Test positive Sacral spine : Severe tenderness over the Sacroiliac joint: right side / left side Range of motion: Flexion of the lumbar spine <60 degrees Range of motion: Extension of the lumbar spine <20 degrees Gaenslen's Test positive Shelbie test: positive right side / left side Imaging: X ray of the lumbar spine from 03/25/[address] non contrast of the lumbar spine from 08/04/23 reviewed Assessment and plan: Chronic LBP secondary to DDD, spondylosis and facet arthropathy without myelopathy Recommendation of MARITZA L4-L5 #1. May need a series of injections for optimal pain relief. Risks, benefits of procedure discussed and pt verbalized understanding. Protocol for discontinuation/ continuation of medications chen procedure discussed. All patient questions answered I have spent 31 minutes on patient care today. Dr Medina was available by phone for the evaluation of this patient. The time was used to review the medical records including relevant urine studies and Prescription history (MAPs), review of the available imaging, evaluation and examination of the patient, coordination of care with the medical staff and if applicable referring physicians, as well as creation of the medical record - Pain Location Right Lower Back Pharmacological Interventions: Medication PQRS Narrative: Smoking Status Heavy tobacco smoker Blood Pressure 153/70 Pain Intensity [Right Lower 6 Back] Scale Used Numeric (1 - 10) Hx Alcohol Use (MH) No Home Medications: Ambulatory Orders allopurinoL [Zyloprim] 100 mg PO DAILY 08/08/14 Montelukast [Singulair] 10 mg PO HS 10/21/17 Apixaban [Eliquis] 5 mg PO BID 07/15/20 Insulin Detemir [Levemir Flextouch Pen] 20 units SQ HS 07/15/20 oxyCODONE HCL/ACETAMINOPHEN [oxyCODONE HCL/ACETAMINOPHEN 7.5-325] 1 tab PO Q6H PRN 11/01/20 Baclofen 10 mg PO TID 07/25/22 Tamsulosin HCl [Flomax] 0.4 mg PO DAILY 07/25/22 Aspirin EC [Ecotrin Low Dose] 81 mg PO DAILY 08/03/22 Gabapentin [Neurontin] 200 mg PO TID 08/03/22 ALPRAZolam [Xanax] 0.5 mg PO BID PRN 11/01/22 Ergocalciferol [Vitamin D2 (1250 Mcg = 76481 Iu)] 1,250 mcg PO FR 11/01/22 Furosemide [Lasix] 20 mg PO Q48H 11/01/22 Pantoprazole [Protonix] 40 mg PO DAILY 11/01/22 Potassium Chloride [Potassium Chloride ER (K-Dur GEQ)] 20 meq PO Q48H 11/01/22 Sertraline [Zoloft] 100 mg PO DAILY 11/01/22 Amiodarone [Cordarone] 200 mg PO DAILY 12/26/22 Atorvastatin [Lipitor] 40 mg PO DAILY 12/26/22 Glimepiride [Amaryl] 4 mg PO BID 12/26/22 Ondansetron [Zofran] 4 mg PO DAILY@1800 12/26/22 Doxycycline Hyclate 100 mg PO DAILY 03/20/23 Levalbuterol Hfa Inhaler [Xopenex Hfa Inhaler] 2 puff INHALATION RT-Q6H PRN 03/20/23 Lidocaine 5% Oint [Xylocaine 5% Oint] 1 applic TOPICAL Q2H PRN 03/20/23 Losartan [Cozaar] 25 mg PO DAILY 03/20/23 amLODIPine [Norvasc] 5 mg PO DAILY 03/20/23 Isosorbide Mononitrate ER [Imdur] 30 mg PO DAILY 30 Days #30 tab 03/22/23 diazePAM [Valium] 5 mg PO DAILY PRN 1 Days #2 tab 04/14/23 Controlled Substance Measures - Controlled Substance Measures Is patient prescribed a controlled substance at discharge?: No
== END ==
LOC: PNWHC3 09:53
PROVIDERS: ATTEND Specialist
DX: M51.36 Other intervertebral disc degeneration, lumbar region (principal); M51.26 Other intervertebral disc displacement, lumbar region; F17.200 Nicotine dependence, unspecified, uncomplicated; Z88.8 Allergy status to other drugs, medicaments and biological substances
CPT/HCPCS: 99211

== ENCOUNTER → 2023-09-04 | Outpatient (CLI) | payer MEDICARE, OTHER | END | disposition home or self-care (01) | LOC: RADPETMAIN 15:36 | PROVIDERS: ATTEND Family Medicine | DX: Z53.9 Procedure and treatment not carried out, unspecified reason (principal) ==

== ENCOUNTER → 2023-09-11 | Outpatient (CLI) | payer MEDICARE, OTHER ==
--- NOTE | 2023-09-11 17:31 | PE ---
EXAMINATION TYPE: PET CT fusion skull to thigh DATE OF EXAM: 09/11/2023 CLINICAL INDICATION:Male, 68 years old with history of R93.7 ABN FINDING ON DX IMAGING; TECHNIQUE: Following the intravenous administration of 10.63 mCi of F-18 FDG, whole body images are performed from the skull base to the midthigh. Images are reviewed on the computer in the coronal, axial, and sagittal planes. Reconstructed rotating images are created on independent workstation and reviewed on the computer. A non-contrast CT is performed in conjunction with the PET scan. Glucose level 119 mg/dL CT DLP: 993 mGycm, Automated exposure control for dose reduction was used. COMPARISON: CT 08/04/2023, 02/19/2020, 08/08/2014 PET/CT None, MRI: None FINDINGS: Mediastinal SUV mean is 4.6. Hepatic parenchyma SUV mean is 5.1. SKULL BASE AND NECK: No suspicious radiotracer activity. CHEST, MEDIASTINUM, AND HILAR REGION: Right midlung 8 mm pulmonary nodule abutting the minor fissure with a maximum SUV of 1 which is below background. ABDOMEN AND PELVIS: No suspicious radiotracer activity. MUSCULOSKELETAL STRUCTURES: There are 2 stable subtle lucent lesions identified within the L2 and L3 vertebral bodies which are stable dating back to 2018. No corresponding focal radiotracer uptake abov e background. Focal uptake identified within the left antecubital fossa likely from IV. OTHER CT: Bilateral aphakia. Mild mucosal thickening of the inferior right maxillary sinus. Moderate bilateral carotid bulb calcifications. Bilateral AC joint arthropathy. Left thyroid lobe 1.6 cm hypod ense nodule. Mild atelectatic calcification of the aorta and its branches. Bilateral gynecomastia. Mi ld coronary arterial calcifications. Small bilateral adrenal gland lipid rich adenomas. Post cholecys tectomy changes. Nonobstructive right renal calculi. Scattered colonic diverticulosis. Mildly promine nt prostate gland. IMPRESSION: 1. There are 2 subtle lucent lesions identified within the L2 and L3 vertebral bodies without focal FDG activity above background. Lesions are stable dating back to 2018 exam and are considered benign. 2. Right midlung 8mm pulmonary nodule with FDG activity below background. Stable dating back to 2015 exam benign. 3. No suspicious FDG activity identified.
== END | disposition home or self-care (01) ==
LOC: RADPETMAIN 12:12
PROVIDERS: ATTEND Family Medicine
DX: R93.7 Abnormal findings on diagnostic imaging of other parts of musculoskeletal system (principal)
CPT/HCPCS: 78815; A9552

== ENCOUNTER 2023-09-30 13:00 | Day surgery (SDC) | payer MEDICARE, OTHER ==
[2023-09-30] MEDS ORDERED: methylPREDNISolone ACETATE 40 MG/ML 1 ML VIAL ONE ×2 (14:21→14:24)
[2023-09-30] MEDS ORDERED: IOPAMIDOL M200 10 ML VIAL ONE ×2 (14:21→14:24)
--- NOTE | 2023-10-16 16:43 | FL ---
EXAMINATION TYPE: FL guided pain mgmt statistic DATE OF EXAM: 10/16/2023 FLUOROSCOPY LESI DONE IN [facility] [place] 4 SECS DAP 0.25926 mGycm2.
== END 2023-09-30 15:10 ==
LOC: ORPAIN 13:00
PROVIDERS: ATTEND Specialist
DX: M47.26 Other spondylosis with radiculopathy, lumbar region (principal); I48.91 Unspecified atrial fibrillation; E11.9 Type 2 diabetes mellitus without complications; Z79.01 Long term (current) use of anticoagulants; Z79.82 Long term (current) use of aspirin; Z79.899 Other long term (current) drug therapy
CPT/HCPCS: 62323

== ENCOUNTER → 2023-11-13 | Outpatient (CLI) | payer MEDICARE, OTHER ==
[2023-11-13 12:10] VITALS: BP 168/83; PULSE 73; RESP 16; TEMP 97.1
--- NOTE | 2023-11-13 14:45 | P.PAINPG ---
PQRS Measure Charge Sheet Comment: A 68 yr old male with a history of severe and chronic LBP > 3 yrs secondary to radiculopathy, spondylosis and facet arthropathy presents today for MARITZA L4-L5 #1. Pt states he experienced 80 % pain relief x 6 wks s/p procedure. Pain level is provoked at 7 /10 in intensity, localized in the lower lumbar spine, intermittent, predominantly axial, sharp in character w occasional radiation of pain R of midline and down the RLE w L foot tingling. Pain is provoked by lifting. Pain is alleviated with medications, topicals, injections, alternating ice and heat, PT x 6 wks which ended in Dec 2022 though it was unhelpful, physician guided home stretching regimen daily since Dec 2022, laying supine and elevating the lower extremities and rest. Interventional pain procedures completed include LESI L4-L5 #4 (Sep 2023) Patient is currently on Oxycodone, Lidocaine Patient denies any side effects of the medication(s), denies excessive drowsiness or sleepiness, denies suicidal ideation and reports that the current pain medication is helping to control the pain and improve activities of daily living. Patient denies any motor or sensory deficits. Patient denies any fever or night sweats, denies any change in the bowel movements or urination. Physical Examination: -Constitutional: Cooperative. Not in acute distress . -HEENT: Neck is supple. No lymphadenopathy. No thyromegaly. Normal thyroid size. Eyes: No ptosis , no icterus, no photophobia. ENT: No auditory deficits. Normal oropharynx. No Thrush. - Respiratory: Chest clear to auscultations bilaterally. No wheezing. No rhonchi. - Cardiovascular: Regular rate and rhythm. S1 / S2 , no S3 , no S4. - Gastrointestinal: Abdomen soft no tenderness. Bowel sounds positive in all four quadrants. No organomegaly. - Genitourinary: Deferred. - Neurologic: Cranial nerve II to XII intact. No focal neurological deficits. - Psychatric: Alert & oriented x 3. Matching mood & appropriate affect. Judgment and insight intact. - Lymphatic: No Lymphadenopathy. - Musculoskeletal: Cervical spine: Muscle bulk/ tone/ strength in the bilateral upper extremities normal. Facet loading test cervical area positive. Lumbar spine: Motor bulk/ tone/ strength lower extremities , thigh and legs : 5/5 Deep tendon reflexes : Normal Knee Jerk. Normal Ankle Jerk . Vertebral body tenderness to palpation over L4 Lumbar Facet Loading Test positive Straight Leg Raise: positive at 30 degrees right side/ left side Gaenslen's Test positive Sacral spine : Severe tenderness over the Sacroiliac joint: right side / left side Range of motion: Flexion of the lumbar spine <60 degrees Range of motion: Extension of the lumbar spine <20 degrees Gaenslen's Test positive Shelbie test: positive right side / left side Imaging: X ray of the lumbar spine from 03/25/[address] non contrast of the lumbar spine from 08/04/23 reviewed Assessment and plan: Chronic LBP secondary to radiculopathy, spondylosis and facet arthropathy without myelopathy Recommendation of MARITZA L4-L5 #2. May need a series of injections for optimal pain relief. Risks, benefits of procedure discussed and pt verbalized understanding. Protocol for discontinuation/ continuation of medications chen procedure discussed. Medical clearance for Eliquis renewed 09/05/23. All patient questions answered I have spent 31 minutes on patient care today. Dr Medina was available by phone for the evaluation of this patient. The time was used to review the medical records including relevant urine studies and Prescription history (MAPs), review of the available imaging, evaluation and examination of the patient, coordination of care with the medical staff and if applicable referring physicians, as well as creation of the medical record PQRS Narrative: Smoking Status Heavy tobacco smoker Hx Alcohol Use (MH) No Home Medications: Ambulatory Orders allopurinoL [Zyloprim] 100 mg PO DAILY 08/08/14 Montelukast [Singulair] 10 mg PO HS 10/21/17 Apixaban [Eliquis] 5 mg PO BID 07/15/20 Insulin Detemir [Levemir Flextouch Pen] 20 units SQ HS 07/15/20 oxyCODONE HCL/ACETAMINOPHEN [oxyCODONE HCL/ACETAMINOPHEN 7.5-325] 1 tab PO Q6H PRN 11/01/20 Baclofen 10 mg PO TID 07/25/22 Tamsulosin HCl [Flomax] 0.4 mg PO DAILY 07/25/22 Aspirin EC [Ecotrin Low Dose] 81 mg PO DAILY 08/03/22 Gabapentin [Neurontin] 200 mg PO TID 08/03/22 ALPRAZolam [Xanax] 0.5 mg PO BID PRN 11/01/22 Ergocalciferol [Vitamin D2 (1250 Mcg = 51264 Iu)] 1,250 mcg PO FR 11/01/22 Furosemide [Lasix] 20 mg PO Q48H 11/01/22 Pantoprazole [Protonix] 40 mg PO DAILY 11/01/22 Potassium Chloride [Potassium Chloride ER (K-Dur GEQ)] 20 meq PO Q48H 11/01/22 Sertraline [Zoloft] 100 mg PO DAILY 11/01/22 Amiodarone [Cordarone] 200 mg PO DAILY 12/26/22 Atorvastatin [Lipitor] 40 mg PO DAILY 12/26/22 Glimepiride [Amaryl] 4 mg PO BID 12/26/22 Ondansetron [Zofran] 4 mg PO DAILY@1800 12/26/22 Doxycycline Hyclate 100 mg PO DAILY 03/20/23 Levalbuterol Hfa Inhaler [Xopenex Hfa Inhaler] 2 puff INHALATION RT-Q6H PRN 03/20/23 Lidocaine 5% Oint [Xylocaine 5% Oint] 1 applic TOPICAL Q2H PRN 03/20/23 Losartan [Cozaar] 25 mg PO DAILY 03/20/23 amLODIPine [Norvasc] 5 mg PO DAILY 03/20/23 Isosorbide Mononitrate ER [Imdur] 30 mg PO DAILY 30 Days #30 tab 03/22/23 diazePAM [Valium] 5 mg PO DAILY PRN 1 Days #2 tab 04/14/23 Controlled Substance Measures - Controlled Substance Measures Is patient prescribed a controlled substance at discharge?: No
== END ==
LOC: PNWHC3 11:13
PROVIDERS: ATTEND Specialist
DX: M54.16 Radiculopathy, lumbar region
CPT/HCPCS: 99211

== ENCOUNTER 2023-12-05 11:14 | Day surgery (SDC) | payer MEDICARE ==
[2023-12-05 11:38] VITALS: TEMP 97.3
[2023-12-05 11:46] LABS: Glucose,Whole Blood 259 mg/dL (70-110)
[2023-12-05] MEDS ORDERED: methylPREDNISolone ACETATE 80 MG/ML 1 ML VIAL ONE (12:26)
[2023-12-05] MEDS ORDERED: ROPIVACAINE 5MG/ML 20ML VIAL ONE (12:26)
[2023-12-05] MEDS ORDERED: IOPAMIDOL M300 15ML VIAL ONE (12:26)
--- NOTE | 2023-12-05 12:39 | P.PCN ---
Description of Procedure: PREOPERATIVE DIAGNOSIS: 1- Lumbar Degenerative Disc Diseases 2-Lumbar spondylosis with Facet arthropathy without myelopathy. 3-lumbar spinal stenosis POSTOPERATIVE DIAGNOSIS: 1-lumbar degenerative disc disease. 2-lumbar spondylosis with facet arthropathy without myelopathy. 3-lumbar spinal stenosis. PROCEDURE Injection of radio contrast material into L4-5 interspace, interpretation of epidurogram, injection of steroid at L4- 5 epidural space under fluoroscopic guidance. ANESTHESIA: Lidocaine 1% subcutaneously. In OR continuous pulse ox, EKG, blood pressure and verbal communication was maintained with the patient. EBL: Minimal PROCEDURE INDICATION: Before the procedure were discussed with the patient detailed procedure, alternatives, complications including infection, bleeding, nerve damage, paralysis all of which could be permanent. Patient understands and all questions were answered. PROCEDURE DESCRIPTION : After getting consent, patient in OR in prone position. Back was prepped with chlorhexidine and draped in sterile fashion. After injecting 10 mL of 1% lidocaine subcutaneously, a 20-gauge Tuohy needle was introduced at L4 5 interspace with loss of resistance technique using a syringe filled with air. Negative CSF, negative blood, negative paresthesia. Needle position was confirmed with AP and lateral view of the fluoroscope. After repeat negative aspiration 2 mL of Omnipaque 200 water soluble contrast was injected. Contrast was noted in the epidural space. No contrast was noted into intrathecal or intravascular space. After repeat negative aspiration 6 mL solution was injected intermittently which consists of 5 mL of preservative-free normal saline mixed with 1 mL of 80 mg Depo-Medrol. Needle was withdrawn intact. Skin was cleansed and Band-Aids was applied. DISPOSITION / PLANS: The patient tolerated the procedure well. No complication. The patient was placed in a supine position and transferred to the recovery area in a stable condition for observation. There was no evidence of lower extremity motor or sensory deficit after the procedure. Patient was discharged from the recovery room after meeting discharge criteria. Home discharge instructions were given to the patient by the staff. The patient was reexamined prior to discharge. The patient will schedule a follow up in the clinic in 2-4 weeks.
[2023-12-05 12:42] VITALS: BP 112/64; PULSE 69; RESP 18
--- NOTE | 2023-12-05 13:05 | FL ---
EXAMINATION TYPE: FL guided pain mgmt statistic DATE OF EXAM: 12/05/2023 12:43 PM COMPARISON: Pre Operative Images if available both CT/MRI or plain film CLINICAL INDICATION: Male, 68 years old with history of Lumbar Epid Inj; TECHNIQUE: FL guided pain mgmt statistic, multiple fluoroscopic images provided for procedure. Total fluoroscopy time: 5.8 seconds Total submitted images to PACS: 2 DAP: [id number] mGym2 Gycm2 uGym2 cGycm2 or equivalent. FINDINGS: Fluoroscopic images during injection for pain management demonstrate multilevel degeneration changes throughout the spine. No evidence for fracture. No acute process identified. IMPRESSION: 1. No evidence for intraoperative complication. 2. Please see the operative/procedural note for further details. [facility], , 12/05/2023 1:02 PM
== END 2023-12-05 13:00 | disposition home or self-care (01) ==
LOC: ORPAIN 11:14
PROVIDERS: ATTEND Pain Medicine Interventional Pain Medicine
DX: M54.16 Radiculopathy, lumbar region
CPT/HCPCS: 62323

== ENCOUNTER → 2023-12-12 | Outpatient (CLI) | payer MEDICARE, OTHER ==
--- NOTE | 2023-12-13 09:57 | MR ---
EXAMINATION TYPE: MRI right knee without IV contrast DATE OF EXAM: 12/12/2023 COMPARISON: Radiographs 12/08/2023 HISTORY: Right knee pain and swelling x1 week, Walking and his knee popped TECHNIQUE: Multiplanar, multisequence imaging of the right knee is performed without IV contrast. FINDINGS: MEDIAL MENISCUS: Horizontal undersurface tear of the body of the medial meniscus. Mild degenerative f raying of the posterior root of the medial meniscus. Anterior and posterior horns are intact. Mild ex trusion of the medial meniscal body. LATERAL MENISCUS: Anterior and posterior horns are intact without tear. CRUCIATE LIGAMENTS: The anterior and posterior cruciate ligaments are intact and unremarkable. COLLATERAL LIGAMENTS: The medial collateral ligament and lateral collateral ligament complex are inta ct and unremarkable. EXTENSOR MECHANISM: Visualized quadriceps and patellar tendons are intact. EFFUSION: Small joint effusion without significant synovitis. POPLITEAL CYST: Slitlike Escalante's cyst CARTILAGE: Patellofemoral and lateral compartment cartilage is intact. Mild chondral thinning along the peripheral aspect of the medial tibial plateau with several small pa rtial thickness fissures. Mild diffuse chondral thinning along the middle third of the medial femoral condyle without focal full-thickness defect. BONE MARROW SIGNAL: Diffuse low level bone marrow edema along the medial tibial spine. Negative for f racture or marrow replacement. OTHER: Moderate fluid in the semimembranosus bursa. Multiple small ganglia along the anterior tibiof ibular joint. Small popliteus tendinous junction ganglion. Low-level edema within the lateral and med ial gastrocnemius musculature which may relate to strains. IMPRESSION: 1. Horizontal undersurface tear of the body of the medial meniscus. Mild fraying of the posterior taryn t of the medial meniscus. 2. Mild medial compartment chondrosis. See comments above. 3. Low-level edema along the medial tibial spine which may relate to contusion. Negative for fracture . 4. Moderate semimembranosus bursitis. 5. Small joint effusion. 6. Several small ganglia along the anterior tibiofibular joint. 7. Low-grade strains of the medial and lateral gastrocnemius musculature. [facility], Workstation: [email or web address] [address] CAMPUSEdusonJoshua, 12/13/2023 9:55 AM
== END | disposition home or self-care (01) ==
LOC: RADMRIMAIN 18:51
PROVIDERS: ATTEND Orthopaedic Surgery

== ENCOUNTER → 2023-12-24 | Outpatient (CLI) | payer MEDICARE ==
[2023-12-24 13:00] VITALS: BP 133/76; PULSE 54; RESP 16
--- NOTE | 2023-12-24 15:18 | P.PAINPG ---
PQRS Measure Charge Sheet Comment: A 68 yr old male with a history of severe and chronic LBP > 3 yrs secondary to radiculopathy, spondylosis and facet arthropathy presents today for MARITZA L4-L5 #2. Pt states he experienced 80 % pain relief x 3 wks s/p procedure. Pain level is provoked at 3 /10 in intensity, localized in the lower lumbar spine, intermittent, predominantly axial, sharp in character w occasional radiation of pain R of midline and down the RLE w L foot tingling. Pain is provoked by lifting. Pain is alleviated with medications, topicals, injections, alternating ice and heat, PT x 6 wks which ended in Dec 2022 though it was unhelpful, physician guided home stretching regimen daily since Dec 2022, laying supine and elevating the lower extremities and rest. Interventional pain procedures completed include LESI L4-L5 #5 (Sep 2023, Nov 2023) Patient is currently on Oxycodone, Lidocaine Patient denies any side effects of the medication(s), denies excessive drowsiness or sleepiness, denies suicidal ideation and reports that the current pain medication is helping to control the pain and improve activities of daily living. Patient denies any motor or sensory deficits. Patient denies any fever or night sweats, denies any change in the bowel movements or urination. Physical Examination: -Constitutional: Cooperative. Not in acute distress . -HEENT: Neck is supple. No lymphadenopathy. No thyromegaly. Normal thyroid size. Eyes: No ptosis , no icterus, no photophobia. ENT: No auditory deficits. Normal oropharynx. No Thrush. - Respiratory: Chest clear to auscultations bilaterally. No wheezing. No rhonchi. - Cardiovascular: Regular rate and rhythm. S1 / S2 , no S3 , no S4. - Gastrointestinal: Abdomen soft no tenderness. Bowel sounds positive in all four quadrants. No organomegaly. - Genitourinary: Deferred. - Neurologic: Cranial nerve II to XII intact. No focal neurological deficits. - Psychatric: Alert & oriented x 3. Matching mood & appropriate affect. Judgment and insight intact. - Lymphatic: No Lymphadenopathy. - Musculoskeletal: Cervical spine: Muscle bulk/ tone/ strength in the bilateral upper extremities normal. Facet loading test cervical area positive. Lumbar spine: Motor bulk/ tone/ strength lower extremities , thigh and legs : 5/5 Deep tendon reflexes : Normal Knee Jerk. Normal Ankle Jerk . Vertebral body tenderness to palpation over L4 Lumbar Facet Loading Test positive Straight Leg Raise: positive at 30 degrees right side/ left side Gaenslen's Test positive Sacral spine : Severe tenderness over the Sacroiliac joint: right side / left side Range of motion: Flexion of the lumbar spine <60 degrees Range of motion: Extension of the lumbar spine <20 degrees Gaenslen's Test positive Shelbie test: positive right side / left side Imaging: X ray of the lumbar spine from 03/25/[address] non contrast of the lumbar spine from 08/04/23 reviewed Assessment and plan: Chronic LBP secondary to radiculopathy, spondylosis and facet arthropathy without myelopathy Will manage residual pain and may RTC on an as needed basis. All patient questions answered I have spent 31 minutes on patient care today. Dr Medina was available by phone for the evaluation of this patient. The time was used to review the medical records including relevant urine studies and Prescription history (MAPs), review of the available imaging, evaluation and examination of the patient, coordination of care with the medical staff and if applicable referring physicians, as well as creation of the medical record PQRS Narrative: Smoking Status Heavy tobacco smoker Hx Alcohol Use (MH) No Home Medications: Ambulatory Orders allopurinoL [Zyloprim] 100 mg PO DAILY 08/08/14 Montelukast [Singulair] 10 mg PO HS 10/21/17 Apixaban [Eliquis] 5 mg PO BID 07/15/20 oxyCODONE HCL/ACETAMINOPHEN [oxyCODONE HCL/ACETAMINOPHEN 7.5-325] 1 tab PO Q6H PRN 11/01/20 Baclofen 10 mg PO TID 07/25/22 Tamsulosin HCl [Flomax] 0.4 mg PO DAILY 07/25/22 Aspirin EC [Ecotrin Low Dose] 81 mg PO DAILY 08/03/22 Gabapentin [Neurontin] 200 mg PO TID 08/03/22 ALPRAZolam [Xanax] 0.5 mg PO BID PRN 11/01/22 Furosemide [Lasix] 20 mg PO Q48H 11/01/22 Potassium Chloride [Potassium Chloride ER (K-Dur GEQ)] 20 meq PO Q48H 11/01/22 Sertraline [Zoloft] 100 mg PO DAILY 11/01/22 Amiodarone [Cordarone] 200 mg PO DAILY 12/26/22 Atorvastatin [Lipitor] 40 mg PO DAILY 12/26/22 Glimepiride [Amaryl] 4 mg PO BID 12/26/22 Ondansetron [Zofran] 4 mg PO DAILY@1800 12/26/22 Doxycycline Hyclate 100 mg PO DAILY 03/20/23 Levalbuterol Hfa Inhaler [Xopenex Hfa Inhaler] 2 puff INHALATION RT-Q6H PRN 03/20/23 Lidocaine 5% Oint [Xylocaine 5% Oint] 1 applic TOPICAL Q2H PRN 03/20/23 Losartan [Cozaar] 25 mg PO DAILY 03/20/23 amLODIPine [Norvasc] 5 mg PO DAILY 03/20/23 Isosorbide Mononitrate ER [Imdur] 30 mg PO DAILY 30 Days #30 tab 03/22/23 diazePAM [Valium] 5 mg PO DAILY PRN 1 Days #2 tab 04/14/23 Insulin Glargine [Lantus Vial] 30 unit SQ HS 12/03/23 Controlled Substance Measures - Controlled Substance Measures Is patient prescribed a controlled substance at discharge?: No
== END ==
LOC: PNWHC3 12:45
PROVIDERS: ATTEND Specialist
DX: M47.26 Other spondylosis with radiculopathy, lumbar region (principal); F17.200 Nicotine dependence, unspecified, uncomplicated
CPT/HCPCS: 99211

== ENCOUNTER → 2024-02-09 | Outpatient (CLI) | payer MEDICARE, OTHER ==
--- NOTE | 2024-02-09 11:49 | XR ---
EXAMINATION TYPE: XR chest 2V DATE OF EXAM: 02/09/2024 10:48 AM COMPARISON: 03/20/2023 CLINICAL INDICATION: Male, 68 years old with history of I50.42 DIASTOLIC CONGESTIVE HEART FAILURE, , preop for knee surgery TECHNIQUE: Frontal and lateral views FINDINGS: Heart upper limits of normal in size. Hazy densities related to large patient body habitus. Some stra ndy atelectasis/scarring remains at the left base. No consolidation or pleural effusion. IMPRESSION: No acute cardiopulmonary process. [facility], , 02/09/2024 11:47 AM
[2024-02-09 15:16] LABS: Basophils # (A) 0.02 X 10*3/uL (0.00-0.10); Basophils % (A) 0.3 %; Eosinophils # (A) 0.13 X 10*3/uL (0.04-0.35); Eosinophils % (A) 1.8 %; HCT 43.4 % (39.6-50.0); HGB 13.2 g/dL (13.0-17.0); Lymphocytes % (A) 27.6 %; MCH 30.2 pg (27.0-32.0); MCHC 30.4 g/dL (32.0-37.0); MCV 99.3 FL (80.0-97.0); Mean Platelet Volume 10.1 FL (9.5-12.2); Monocytes # (A) 0.56 X 10*3/uL (0.20-1.00); Monocytes % (A) 7.7 %; NRBC Per 100 WBC 0 X 10*3/uL (0.00-0.01); Neutrophils # (A) 4.51 X 10*3/uL (1.80-7.70); Neutrophils % (A) 62.3 %; Platelet Count 238 X 10*3/uL (140-440); RBC 4.37 X 10*6/uL (4.40-5.60); RDW 14.1 % (11.5-14.5); WBC 7.24 X 10*3/uL (4.50-10.00)
[2024-02-09 15:45] LABS: ALT 14 U/L (10-49); AST 17 U/L (14-35); Albumin/Globulin Ratio 1.67 Ratio (1.60-3.17); Alkaline Phosphatase 131 U/L (41-126); BUN/Creat Ratio 17.45 Ratio (12.00-20.00); Blood Urea Nitrogen 19.2 mg/dL (9.0-27.0); Calcium 9.2 mg/dL (8.7-10.3); Carbon Dioxide 25.6 mmol/L (21.6-31.8); Chloride 106 mmol/L (96-109); Globulin 2.4 g/dL (1.6-3.3); Glucose 93 mg/dL (70-110); INR <0.93 sec (0.93-1.11); Potassium 4.2 mmol/L (3.5-5.5); Prothrombin Time 10.5 sec (9.9-11.9); Sodium 141 mmol/L (135-145); T4, Free (Free Thyroxine) 0.98 ng/dL (0.80-1.80); Total Bilirubin 0.2 mg/dL (0.3-1.2); Total Protein 6.4 g/dL (6.2-8.2)
== END | disposition home or self-care (01) ==
LOC: LABWHC1 09:55
PROVIDERS: ATTEND Family Medicine
DX: M23.91 Unspecified internal derangement of right knee (principal); E11.8 Type 2 diabetes mellitus with unspecified complications; I48.19 Other persistent atrial fibrillation; I50.42 Chronic combined systolic (congestive) and diastolic (congestive) heart failure
CPT/HCPCS: 36415; 71046; 80053; 83036; 84439; 84443; 85025; 85610

== ENCOUNTER 2024-02-13 08:43 | Day surgery (SDC) | payer MEDICARE, OTHER ==
--- NOTE | 2024-02-12 08:56 | P.HPOR ---
History of Present Illness H&P Date: 02/12/24 Chief Complaint: Right knee pain Patient is a 68-year-old retired male who presents with progressive right knee pain after a twisting injury on 12/06/2023. He notes his knee popped and caused him to fall. He tried medications in addition to an injection with temporary partial relief. He is having pain with any weightbearing activities. He notes giving way. Review of Systems per HPI Past Medical History Past Medical History: Atrial Fibrillation, COPD, Diabetes Mellitus, Deep Vein Thrombosis (DVT), Hyperlipidemia, Hypertension, Osteoarthritis (OA), Prostate Disorder, Pulmonary Embolus (PE), Renal Disease, Skin Disorder, Sleep Apnea/CPAP/BIPAP Additional Past Medical History / Comment(s): "small heart attacks PE" per pt, gout, kidney stones. back pain. kidney function 40%, hypokalemia; cardioversion 08/02/22.. BPH. no cpap due to wt loss. currently has boils on buttock intact.- using mupirocin ointment.( message left for DR Templeton office) History of Any Multi-Drug Resistant Organisms: None Reported Past Surgical History: Cardiac Ablation, Cholecystectomy, Heart Catheterization, Hernia Repair, Orthopedic Surgery Additional Past Surgical History / Comment(s): umbilical hernia , Bilateral cataract surgery, 2left knee arthroscopy, ORIF left knee open reduction and internal fixation after injury, pain procedures,cardioversion Past Anesthesia/Blood Transfusion Reactions: No Reported Reaction Smoking Status: Former smoker - Past Family History Father History Unknown: Yes Family Medical History: Cancer Additional Family Medical History / Comment(s): . Mother History Unknown: Yes Family Medical History: Cancer, Deep Vein Thrombosis (DVT) Additional Family Medical History / Comment(s): . Brother(s) Family Medical History: No Reported History Additional Family Medical History / Comment(s): from overdose Sister(s) Family Medical History: No Reported History Additional Family Medical History / Comment(s): Patient has 1 sister from drug overdose after chronic pain syndrome from low back pain. Medications and Allergies Home Medications Medication Instructions Recorded Confirmed Type allopurinoL [Zyloprim] 100 mg PO DAILY 08/08/14 02/10/24 History Montelukast [Singulair] 10 mg PO HS 10/21/17 02/10/24 History Apixaban [Eliquis] 5 mg PO BID 07/15/20 02/10/24 History Baclofen 10 mg PO TID 07/25/22 02/10/24 History Tamsulosin HCl [Flomax] 0.4 mg PO DAILY 07/25/22 02/10/24 History Aspirin EC [Ecotrin Low Dose] 81 mg PO DAILY 08/03/22 02/10/24 History Gabapentin [Neurontin] 200 mg PO TID 08/03/22 02/10/24 History ALPRAZolam [Xanax] 0.5 mg PO BID PRN 11/01/22 02/10/24 History Furosemide [Lasix] 20 mg PO Q48H 11/01/22 02/10/24 History Potassium Chloride [Potassium 20 meq PO Q48H 11/01/22 02/10/24 History Chloride ER (K-Dur GEQ)] Sertraline [Zoloft] 100 mg PO DAILY 11/01/22 02/10/24 History Atorvastatin [Lipitor] 40 mg PO DAILY 12/26/22 02/10/24 History Glimepiride [Amaryl] 4 mg PO BID 12/26/22 02/10/24 History Doxycycline Hyclate 100 mg PO DAILY 03/20/23 02/10/24 History Levalbuterol Hfa Inhaler [Xopenex 2 puff INHALATION RT-Q6H PRN 03/20/23 02/10/24 History Hfa Inhaler] Lidocaine 5% Oint [Xylocaine 5% 1 applic TOPICAL Q2H PRN 03/20/23 02/10/24 History Oint] Losartan [Cozaar] 25 mg PO DAILY 03/20/23 02/10/24 History amLODIPine [Norvasc] 5 mg PO DAILY 03/20/23 02/10/24 History Insulin Glargine [Lantus Vial] 25 unit SQ HS 12/03/23 02/10/24 History Mupirocin 2% Oint [Bactroban 2% 1 applic TOPICAL DIRECTED PRN 02/10/24 02/10/24 History Oint] oxyCODONE-APAP 10-325MG [Percocet 1 tab PO Q6HR PRN 02/10/24 02/10/24 History 10-325 mg] Allergies Allergy/AdvReac Type Severity Reaction Status Date / Time No Known Allergies Allergy Verified 02/10/24 11:00 Physical Examination - Knee right Appearance: effusion Effusion grade: grade 1 Tenderness with palpation: anterior, medial Pain: throughout ROM Gait: limping ROM: extension: -15 degrees ROM: flexion: 120 degrees Crepitus with motion: Yes Strength: extension: 5/5 Strength: flexion: 5/5 Meniscal tests: medial meniscal tests: positive, medial joint line pain: positive Results Patient is a well-developed well-nourished male approximate 5 foot 11, 230 pounds endomorphic habitus. HEENT exam is nonfocal, neck is supple. He has painless passive motion of the right hip. Straight leg raise is negative. He's tender about the medial joint line of the right knee. Collaterals were stable, Ese was negative, Maricel's elicits medial pain. His distal neurovascular appears intact in the right lower extremity. - Diagnostic results Knee MRI: image reviewed (MRI of the right knee is reviewed and shows a posterior medial meniscal tear.) Assessment and Plan Assessment: Right knee internal derangementsymptomatic medial meniscal tear Plan: I talked with patient at length regarding his condition along with treatment options. At this point he is having significant pain and mechanical symptoms despite attempted conservative measures. After a thorough discussion he opts to proceed with surgery. We will plan to proceed with right knee arthroscopy with probable partial medial meniscectomy. Risks and benefits were discussed at community health layman's terms turns. We will likely perform as an outpatient procedure.
[~2024-02-13 08:43] MED LIST changes: +HYDROmorphone 0.5 MG/0.5 ML SYRINGE IVP PRN; +MIDAZOLAM 2 MG/2 ML VIAL IV PRN
[2024-02-13 09:26] LABS: Glucose,Whole Blood 84 mg/dL (70-110)
[2024-02-13] MEDS: LACTATED RINGERS 1,000 ML IV ONE (09:26)
[2024-02-13] MEDS: DEXAMETHASONE SOD PHOSPHATE 4 MG/ML 1 ML VIAL IV ONE (09:30)
[2024-02-13] MEDS: ONDANSETRON 4 MG/2 ML VIAL IVP ONE (09:30)
[2024-02-13] MEDS ORDERED: GLYCOPYRROLATE 0.2 MG/ML 2 ML VIAL ONE (10:20)
[2024-02-13] MEDS ORDERED: KETOROLAC 15 MG/ML 1 ML VIAL ONE (10:20)
[2024-02-13] MEDS ORDERED: PROPOFOL 10 MG/ML 20 ML VIAL IV ONE (10:20)
[2024-02-13] MEDS ORDERED: LIDOCAINE 1% INJ 10MG/ML (20 ML MDV) ONE (10:20)
[2024-02-13] MEDS ORDERED: fentaNYL (PF) 50 MCG/ML 2 ML AMP ONE (10:20)
[2024-02-13] MEDS ORDERED: MIDAZOLAM 2 MG/2 ML VIAL ONE (10:20)
[2024-02-13] MEDS ORDERED: ePHEDrine 50 MG/ML 1 ML VIAL ONE (10:20)
[2024-02-13] MEDS: EPINEPHrine (PF) 1 ML in SODIUM CHLORIDE 0.9% IRRIGATIO 3,000 ML IRRIGATION ONE (10:40)
--- NOTE | 2024-02-13 11:16 | P.OP ---
Date of Procedure: 02/13/24 Preoperative Diagnosis: Left knee internal derangement Postoperative Diagnosis: Left knee posterior medial meniscal tear/middle one third lateral meniscal tear Procedure(s) Performed: Left knee arthroscopic partial medial meniscectomy/partial lateral meniscectomy Anesthesia: GUIDO Surgeon: Wallace Templeton Estimated Blood Loss (ml): 10 Pathology: none sent Condition: stable Disposition: PACU Indications for Procedure: The patient is a 68-year-old male who presents with progressive left knee pain and mechanical symptoms despite conservative measures. A discussion of the risks and benefits of operative intervention versus continued conservative measures was made with the patient. He opted to proceed with surgery. Operative risks include infection, neurovascular injury, development of blood clots, possible incomplete resolution of symptoms, possible worsening of symptoms need for subsequent procedures was discussed. Informed consent was obtained. Operative Findings: As below Description of Procedure: The patient was brought to the operating room, and after induction of general anesthesia examined the left knee. Collaterals were stable, Ese was negative, and posterior drawer was negative. The left lower extremity was prepped and draped in a normal fashion. A superior lateral portal was made through a 3 mm skin incision superior and lateral to the patella. This was used for outflow. A lateral portal was made through a 5 mm vertical skin incision lateral to the patella tendon above the joint line. Diagnostic arthroscopy was performed. On inspection of the medial compartment, an oblique tear involving the posterior horn of the medial meniscus including the root in the white-red junction was noted. This was not amenable to repair. This was debrided back to stable base with straight baskets and a motorized shaver. Remaining medial meniscus was stable and intact. Grade 2-3 chondral changes were noted involving the medial tibial plateau and medial femoral condyle. On inspection of the not ch, the anterior cruciate ligament appeared to be intact. On inspection of the lateral compartment, a radial tear involving the middle one third of the lateral meniscus in the white-white junction was noted. This is debrided back to stable basis straight baskets and a motorized shaver. The remaining lateral meniscus was stable and intact. Minimal chondromalacia was noted in the lateral compart ment.. On inspection of the patellofemoral articulation, there was some chondral fibrillation however no loose chondral fragments.. The gutters were clear debris. The knee was then thoroughly irrigated. The portals were closed with Steri-Strips. A sterile dressing was applied in addition to a compression stocking. The patient was awoken from general anesthesia and transferred to recovery room in good condition. Blood loss was estimated at 10 mL. No complications were incurred.
[2024-02-13 11:22] VITALS: TEMP 97.1
[2024-02-13 12:24] VITALS: RESP 14
[2024-02-13 12:51] VITALS: BP 128/70; PULSE 56
== END 2024-02-13 13:20 | disposition home or self-care (01) ==
LOC: OR 08:43
PROVIDERS: ATTEND Orthopaedic Surgery
DX: S83.242A Other tear of medial meniscus, current injury, left knee, initial encounter (principal); S83.282A Other tear of lateral meniscus, current injury, left knee, initial encounter; I48.91 Unspecified atrial fibrillation; J44.9 Chronic obstructive pulmonary disease, unspecified; I25.2 Old myocardial infarction; E11.9 Type 2 diabetes mellitus without complications; M19.90 Unspecified osteoarthritis, unspecified site; E78.5 Hyperlipidemia, unspecified; G47.33 Obstructive sleep apnea (adult) (pediatric); I10 Essential (primary) hypertension; N40.0 Benign prostatic hyperplasia without lower urinary tract symptoms; Z86.711 Personal history of pulmonary embolism; Z87.442 Personal history of urinary calculi; Z99.89 Dependence on other enabling machines and devices; Z90.49 Acquired absence of other specified parts of digestive tract; Z86.718 Personal history of other venous thrombosis and embolism; Z98.890 Other specified postprocedural states; Z87.891 Personal history of nicotine dependence; Z79.01 Long term (current) use of anticoagulants; Z79.84 Long term (current) use of oral hypoglycemic drugs; Z79.82 Long term (current) use of aspirin; Z79.02 Long term (current) use of antithrombotics/antiplatelets; Z79.4 Long term (current) use of insulin; Z79.899 Other long term (current) drug therapy; X58.XXXA Exposure to other specified factors, initial encounter
CPT/HCPCS: 29880; J2250; J1100; J2405; J0171; J2003; J3010; J1885; J2704; J1596

== ENCOUNTER 2024-05-28 06:04 | Observation (INO) | payer MEDICARE, OTHER ==
[2024-05-28] MEDS: NITROGLYCERIN SL TABS 0.4 MG TAB SUBLINGUAL STA ×2 (06:19→06:45)
[2024-05-28] MEDS: NITROGLYCERIN OINT 1 INCH/GM PACKET TOPICAL STA (06:20)
[2024-05-28] MEDS: ASPIRIN 81 MG PO STA (06:22)
[2024-05-28] MEDS: ONDANSETRON 4 MG/2 ML VIAL IVP STA (06:25)
[2024-05-28] MEDS: SODIUM CHLORIDE 0.9% 500 ML 500 ML IV ONE (06:29)
[2024-05-28 06:54] LABS: Basophils # (A) 0.01 10*3/uL (0.00-0.10); Basophils % (A) 0.1 %; Eosinophils # (A) 0.09 10*3/uL (0.04-0.35); Eosinophils % (A) 0.9 %; HCT 41.9 % (39.6-50.0); Lymphocytes # (A) 1.71 10*3/uL (0.90-5.00); Lymphocytes % (A) 16.8 %; MCHC 33.4 g/dL (32.0-37.0); MCV 92.9 fL (80.0-97.0); Mean Platelet Volume 9.3 fL (9.5-12.2); Monocytes # (A) 0.62 10*3/uL (0.20-1.00); Monocytes % (A) 6.1 %; Neutrophils # (A) 7.71 10*3/uL (1.80-7.70); Neutrophils % (A) 75.6 %; Platelet Count 222 10*3/uL (140-440); RBC 4.51 10*6/uL (4.40-5.60); RDW 13.9 % (11.5-14.5); WBC 10.19 10*3/uL (4.50-10.00)
[2024-05-28] MEDS: MORPHINE SULFATE 4 MG/ML SYRINGE IVP STA (06:56)
[2024-05-28] MEDS: PROCHLORPERAZINE INJ 10 MG/2 ML VIAL IVP STA (06:57)
--- NOTE | 2024-05-28 06:59 | ED ---
Chest Pain HPI <Gerald Hassan - Last Filed: 05/28/24 08:47> - General Source: patient, RN notes reviewed Mode of arrival: ambulatory Limitations: no limitations - History of Present Illness MD Complaint: chest pain <Nelia Torres - Last Filed: 05/28/24 08:59> - General Chief Complaint: Chest Pain Stated Complaint: Hypertension, chest pain Time Seen by Provider: 05/28/24 06:10 - History of Present Illness Initial Comments: This is a 69-year-old male who presents to the emergency department for chest pain. States that it started about 4 am when he was trying to go to bed. Pain is in the middle to left side of his chest and described as a pressure sensation with radiation into his back and associated shortness of breath. Has associated nausea and vomiting. He is on Eliquis for A-fib. he has a history of CAD with chronic total occlusion of RCA, but does not have any stents. Patient also states that his blood pressure has been very elevated over the last couple of days. Denies missing any medication doses. (Nelia Torres) - Related Data Home Medications Medication Instructions Recorded Confirmed allopurinoL [Zyloprim] 100 mg PO DAILY 08/08/14 02/10/24 Montelukast [Singulair] 10 mg PO HS 10/21/17 02/10/24 Apixaban [Eliquis] 5 mg PO BID 07/15/20 02/10/24 Baclofen 10 mg PO TID 07/25/22 02/10/24 Tamsulosin HCl [Flomax] 0.4 mg PO DAILY 07/25/22 02/10/24 Aspirin EC [Ecotrin Low Dose] 81 mg PO DAILY 08/03/22 02/10/24 Gabapentin [Neurontin] 200 mg PO TID 08/03/22 02/10/24 ALPRAZolam [Xanax] 0.5 mg PO BID PRN 11/01/22 02/10/24 Furosemide [Lasix] 20 mg PO Q48H 11/01/22 02/10/24 Potassium Chloride [Potassium 20 meq PO Q48H 11/01/22 02/10/24 Chloride ER (K-Dur GEQ)] Sertraline [Zoloft] 100 mg PO DAILY 11/01/22 02/10/24 Atorvastatin [Lipitor] 40 mg PO DAILY 12/26/22 02/10/24 Glimepiride [Amaryl] 4 mg PO BID 12/26/22 02/10/24 Doxycycline Hyclate 100 mg PO DAILY 03/20/23 02/10/24 Levalbuterol Hfa Inhaler [Xopenex 2 puff INHALATION RT-Q6H PRN 03/20/23 02/10/24 Hfa Inhaler] Lidocaine 5% Oint [Xylocaine 5% 1 applic TOPICAL Q2H PRN 03/20/23 02/10/24 Oint] Losartan [Cozaar] 25 mg PO DAILY 03/20/23 02/10/24 amLODIPine [Norvasc] 5 mg PO DAILY 03/20/23 02/10/24 Insulin Glargine (Lantus) [Lantus 25 unit SQ HS 12/03/23 02/10/24 Vial] Mupirocin 2% Oint [Bactroban 2% 1 applic TOPICAL DIRECTED PRN 02/10/24 02/10/24 Oint] oxyCODONE-APAP 10-325MG [Percocet 1 tab PO Q6HR PRN 02/10/24 02/10/24 10-325 mg] Previous Rx's Medication Instructions Recorded Ibuprofen [Motrin] 600 mg PO Q8HR PRN #32 tab 02/13/24 Allergies Allergy/AdvReac Type Severity Reaction Status Date / Time No Known Allergies Allergy Verified 05/28/24 06:09 Review of Systems ROS Other: All systems not noted in ROS Statement are negative. <Gerald Hassan - Last Filed: 05/28/24 08:47> ROS Other: All systems not noted in ROS Statement are negative. <Nelia Torres - Last Filed: 05/28/24 08:59> ROS Statement: Those systems with pertinent positive or pertinent negative responses have been documented in the HPI. Past Medical History Past Medical History: Atrial Fibrillation, COPD, Diabetes Mellitus, Deep Vein Thrombosis (DVT), Hyperlipidemia, Hypertension, Osteoarthritis (OA), Prostate Disorder, Pulmonary Embolus (PE), Renal Disease, Skin Disorder Additional Past Medical History / Comment(s): "small heart attacks", gout, kidney stones. back pain. kidney function 40%, hypokalemia; cardioversion 08/02/22 History of Any Multi-Drug Resistant Organisms: None Reported Past Surgical History: Cholecystectomy, Heart Catheterization, Orthopedic Surgery Additional Past Surgical History / Comment(s): Cholecystectomy with hernia repair , Bilateral cataract surgery, left knee arthroscopy, ORIF left knee open reduction and internal fixation after injury, pain procedures, cardiac ablation Past Anesthesia/Blood Transfusion Reactions: No Reported Reaction Past Psychological History: No Psychological Hx Reported Smoking Status: Former smoker - Past Family History Father History Unknown: Yes Family Medical History: Cancer Additional Family Medical History / Comment(s): . Mother History Unknown: Yes Family Medical History: Cancer, Deep Vein Thrombosis (DVT) Additional Family Medical History / Comment(s): . Brother(s) Family Medical History: No Reported History Additional Family Medical History / Comment(s): from overdose Sister(s) Family Medical History: No Reported History Additional Family Medical History / Comment(s): Patient has 1 sister from drug overdose after chronic pain syndrome from low back pain. <Nelia Torres - Last Filed: 05/28/24 08:59> General Exam Limitations: no limitations General appearance: alert, in distress Head exam: Present: atraumatic, normocephalic, normal inspection Respiratory exam: Present: normal lung sounds bilaterally. Absent: respiratory distress, wheezes, rales, rhonchi, stridor Cardiovascular Exam: Present: regular rate, normal rhythm GI/Abdominal exam: Present: soft, normal bowel sounds. Absent: distended, tenderness, guarding, rebound, rigid Neurological exam: Present: alert, oriented X3, CN II-XII intact Psychiatric exam: Present: normal affect, normal mood Skin exam: Present: warm, dry, intact, normal color. Absent: rash <Nelia Torres - Last Filed: 05/28/24 08:59> Course Vital Signs 05/28/24 05/28/24 06:07 07:01 Temperature 98.4 F Pulse Rate 83 84 Respiratory 20 17 Rate Blood Pressure 197/80 143/69 O2 Sat by Pulse 98 96 Oximetry Chest Pain [facility] <Gerald Hassan - Last Filed: 05/28/24 08:47> <Nelia Torres - Last Filed: 05/28/24 08:59> - [facility] CT angiography negative for aortic dissection, patient pain controlled in the emergency department. He does have risk factors and moderate to severe pain. He will be observed with serial cardiac enzymes, telemetry, cardiology consultation. I did discuss case with [facility]. (Gerald Hassan) This is a 69-year-old male who presents to the emergency department for chest pain. Was pt. sent in by a medical professional or institution? @ -No Did you speak to anyone other than the patient for history? @ -No Did you review nursing and triage notes? @ -Yes, and I agree, it is accurate with regards to the patient's symptoms. Were old charts reviewed? @ -No Differential Diagnosis? @ -Differential Chest Pain: Stable Angina, Unstable Angina, STEMI, NSTEMI Aortic Dissection, Pneumothorax, Musculoskeletal, Esophageal Spasm GERD, Cholecystitis, Pancreatitis, Zoster, this is not meant to be an all-inclusive list. EKG interpreted by me (3pts min.)? @ -EKG interpreted by me demonstrating the following: Atrial fibrillation. Ventricular rate 85 bpm, QRS duration 102 ms, QTc 439 ms. X-rays interpreted by me (1pt min.)? @ -Chest x-ray obtained, my interpretation identifies no localized consolidations or infiltrates. CT interpreted by me (1pt min.)? @ -CTA of the chest/abd/pelvis obtained. My interpretation identifies no evidence of an aortic dissection. U/S interpreted by me (1pt. min.)? @ -Not obtained What testing was considered but not performed? (CT, X-rays, U/S, labs)? Why? @ -None What meds were considered but not given? Why? @ -None Did you discuss the management of the patient with other professionals? @ -No Did you reconcile home meds? @ -No Was smoking cessation discussed for >3mins.? @ -No Was critical care preformed (if so, how long)? @ -No Were there social determinants of health that impacted care today? How? (Ho melessness, low income, unemployed, alcoholism, drug addiction, transportation, low edu. Level, literacy, decrease access to med. care, fpc, rehab)? @ -No Was there de-escalation of care discussed even if they declined? (Discuss DNR or withdrawal of care, Hospice)? @ -No What co-morbidities impacted this encounter? (DM, HTN, Smoking, COPD, CAD, Cancer, CVA, Hep., AIDS, mental health diagnosis, sleep apnea, morbid obesity)? @ -CAD, A-fib, DM, HLD, HTN Was patient admitted / discharged? @ -Admitted. Patient given aspirin, sublingual nitro, and Nitropaste on arrival. Chest pain went from a 10/10 to a 3/10. However, it started to increase again shortly afterwards. Given the increase in chest pain, we did obtain a second EKG revealing no acute changes. Additional dose of nitroglycerin and morphine administered. Pain again improved, but then came right back up again. CT of the chest/abdomen/pelvis then obtained due to the severity of his symptoms. No evidence of an aortic dissection or other acute findings were identified. Symptoms did start to improve with Dilaudid and Ativan. Patient has multiple cardiac risk factors and was admitted to medicine for chest pain with serial troponins and cardiology consult. Undiagnosed new problem with uncertain prognosis? @ -None Drug Therapy requiring intensive monitoring for toxicity (Heparin, Nitro, Insulin, Cardizem)? @ -None Were any procedures done? @ -None Diagnosis/symptom? @ -Chest pain Acute, or Chronic, or Acute on Chronic? @ -Acute Uncomplicated (without systemic symptoms) or Complicated (systemic symptoms)? @ -Complicated Side effects of treatment? @ -None Exacerbation, Progression, or Severe Exacerbation] @ -Not applicable Poses a threat to life or bodily function? @ -Yes, if due to ACS can lead to (Nelia Torres) Disposition Is patient prescribed a controlled substance at d/c from ED?: Yes Time of Disposition: 08:48 <Gerald Hassan - Last Filed: 05/28/24 08:47> <Nelia Torres - Last Filed: 05/28/24 08:59> Clinical Impression: Chest pain Disposition: ADMITTED IP TO THIS HOSP Condition: Stable Referrals: Tanesha Long MD [Primary Care Provider] - 1-2 days
[2024-05-28 07:16] LABS: INR 0.9 (<1.2); Partial Thromboplastin Time 25.8 sec (22.0-30.0); Prothrombin Time 9.9 sec (10.0-12.5)
[2024-05-28] MEDS: HYDROmorphone 1 MG/ML 1 ML SYRINGE IVP STA ×2 (07:17→07:18)
--- NOTE | 2024-05-28 07:20 | XR ---
EXAMINATION TYPE: XR chest 2V DATE OF EXAM: 05/28/2024 6:39 AM COMPARISON: 02/09/2024 CLINICAL INDICATION: Male, 69 years old with history of Chest Pain, TECHNIQUE: XR chest 2V view(s) obtained. FINDINGS: The heart size is normal. The pulmonary vasculature is normal. The lungs are clear. IMPRESSION: 1. No acute pulmonary process. [facility], , 05/28/2024 7:17 AM
[2024-05-28 07:30] LABS: ALT 20 U/L (4-49); AST 25 U/L (17-59); African American GFR (CKD) >90 (>60 ml/min/1.73 sqM); Albumin 4.2 g/dL (3.5-5.0); Alkaline Phosphatase 144 U/L (38-126); Anion Gap 12 mmol/L; Blood Urea Nitrogen 25 mg/dL (9-20); Calcium 9.4 mg/dL (8.4-10.2); Carbon Dioxide 19 mmol/L (22-30); Chloride 106 mmol/L (98-107); Glucose 211 mg/dL (74-99); Lipase 78 U/L (23-300); Magnesium 1.9 mg/dL (1.6-2.3); Non-African American GFR(CKD) 87 (>60 ml/min/1.73 sqM); Potassium 4.1 mmol/L (3.5-5.1); Sodium 137 mmol/L (137-145); Total Bilirubin 0.5 mg/dL (0.2-1.3); Total Protein 6.8 g/dL (6.3-8.2)
[2024-05-28] MEDS: LORazepam 2 MG/ML INJ IV STA (07:34)
--- NOTE | 2024-05-28 08:14 | CT ---
EXAMINATION TYPE: CT angio thor/abd pel aorta DATE OF EXAM: 05/28/2024 7:55 AM COMPARISON: CT abdomen pelvis most recent from CLINICAL INDICATION: Male, 69 years old with history of CP, severe back pain, chest pain, TECHNIQUE: Multiple thin slice sub-millimeter images were obtained through the chest abdomen and pelv is after administration of contrast. 3-D reconstructed images and maximum intensity projection image s were obtained. One or more CT dose reduction strategies were utilized during this examination. Contrast used:100 mL of Isovue 370 without and with IV Contrast, (none if empty) Oral contrast used: (none if empty) CT DLP: 2341.8 mGycm, Automated exposure control for dose reduction was used. FINDINGS: CTA CHEST: There is a three-vessel arch. Aorta tapers normally through its visualized course to the d iaphragm. Mild coronary artery calcification is present. There is a 0.7 cm nodule anterior right mid lung. Image 32. Hypodensities within the left lobe thyroid ascending thoracic aorta and main pulmonar y arteries 3.8 cm. Main pulmonary artery bifurcation is 3.3 cm. No aortic dissection is evident. CTA Abdomen and pelvis: Celiac axis and superior mesenteric arteries are patent. Renal arteries are p atent. Vascular calcifications within the aorta. Aorta tapers through its visualized course of the aortic bi furcation. Common iliac arteries are patent there is some focal stenosis within the left proximal com mon iliac artery, example image 239 internal and external iliac vessels are patent. There may be some distal external iliac artery narrowing present bilaterally. Common femoral arteries are patent. VISCERA ABDOMEN: Liver: Unremarkable. Gallbladder and Bile ducts: Gallbladder surgically absent. Pancreas: Unremarkable. Spleen: Unremarkable. Adrenal glands: Left adrenal gland is thickened at 1.5 cm. Right adrenal gland distal tip is thickene d measuring 2.1 cm. Kidneys and Ureters: There is a nonobstructing 0.6 cm mid right renal stone. Several right renal richelle ical cysts are present. There is a cortical renal cyst at the inferior pole left kidney PELVIS Bladder: Unremarkable. Reproductive: Prostate is prominent. ABDOMEN & PELVIS Stomach and Bowel: No evidence of bowel obstruction or bowel wall thickening. Diverticulosis is prese nt without acute diverticulitis fecal debris is through the colon. Peritoneum: No evidence of pneumoperitoneum, free fluid, or adenopathy. Vasculature: Unremarkable. No aortic aneurysm. Musculoskeletal: The osseous structures appear intact. LOWER CHEST: No mediastinal or hilar adenopathy enlarged by CT criteria. IMPRESSION: 1. 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 More moderate bilateral distal external iliac artery stenosis is present. 2. Atherosclerotic disease and calcification involving abdominal aorta and lower extremity vasculatu re. No aneurysmal dilatation evident. [facility], , 05/28/2024 8:12 AM
[2024-05-28] MEDS ORDERED: HYDROmorphone 0.5 MG/0.5 ML SYRINGE IVP PRN (08:43)
[2024-05-28] MEDS ORDERED: ONDANSETRON 4 MG/2 ML VIAL IVP PRN ×2 (08:43→15:21)
[2024-05-28] MEDS ORDERED: HYDROmorphone 1 MG/ML 1 ML SYRINGE IVP PRN (08:43)
[2024-05-28] MEDS ORDERED: NALOXONE 0.4 MG/ML 1 ML VIAL IV PRN (08:43)
[2024-05-28] MEDS ORDERED: HYDROmorphone 2 MG/ML 1 ML SYRINGE IVP PRN (14:14)
[2024-05-28] MEDS ORDERED: hydrALAZINE HCL 50 MG TAB PO PRN (15:00)
[2024-05-28] MEDS ORDERED: ALPRAZolam 0.5 MG TAB PO PRN (15:00)
[2024-05-28] MEDS ORDERED: DEXTROSE 50% SYRINGE 50 ML IVP PRN ×2 (15:03)
--- NOTE | 2024-05-28 15:20 | P.HPIM ---
History of Present Illness H&P Date: 05/28/24 This is a 69-year-old male who presented to the emergency department with with reports of chest pain and uncontrolled blood pressure. Patient reports the chest pain started around 4 AM when he was trying to lay down and pain persisted and started developing some increasing shortness of breath and also nausea with vomiting and diarrhea. Patient reports he follows with Dr. Long in the outpatient setting with a significant past medical history of atrial fibrillation, maintained on Eliquis, COPD, diabetes mellitus, DVT, hyperlipidemia, hypertension, osteoarthritis, prostate disorder, previous PE, renal disease, underwent cardioversion in 2022 with cardiac ablation. Patient is a former smoker although does not smoke anymore and denies any other illicit alcohol or drug use. EKG showed sinus rhythm with a septal myocardial infarction probably old with a heart rate of 82 QT 405/QTc 443. Chest x-ray shows no acute pulmonary process. Labs on admission reveal a white count of 10.19, hemoglobin 14.0, platelets 222, PT 9.9 with an INR of 0.9, sodium 137, potassium 4.1, BUN 25, creatinine 0.91, blood glucose random was 211, initial troponin 0.023, second is 0.030, third troponin is 0.035. Patient also underwent thoracic CT angio as patient had reported chest pain with back pain and reveals no aortic dissection evident renal arteries are patent and there is focal severe stenosis proximal left common iliac artery and more moderate bilateral distal external iliac artery stenosis present. Patient is being admitted to the hospital for chest pain for cardiology to evaluate. Patient reports he has a flag maker out of [facility] cardiology although could not give me the name. Patient reports his blood pressure has been elevated over the last few days and persistently remaining elevated despite being compliant with medications. REVIEW OF SYSTEMS: CONSTITUTIONAL: No fever, no malaise, no fatigue. HEENT: No recent visual problems or hearing problems. Denied any sore throat. CARDIOVASCULAR: Reports of chest pain, orthopnea, PND, no palpitations, no syncope. PULMONARY: Reports of shortness of breath, no cough, no hemoptysis. GASTROINTESTINAL: Reports having diarrhea at home prior to hospitalization, reports nausea, reports vomiting, no abdominal pain. NEUROLOGICAL: No headaches, no weakness, no numbness. HEMATOLOGICAL: Denies any bleeding or petechiae. GENITOURINARY: Denies any burning micturition, frequency, or urgency. MUSCULOSKELETAL/RHEUMATOLOGICAL: Denies any joint pain, swelling, or any muscle pain. ENDOCRINE: Denies any polyuria or polydipsia. The rest of the 14-point review of systems is negative. PHYSICAL EXAMINATION: GENERAL: The patient is alert and oriented x3, elderly appearing, well developed, well nourished. Obese HEENT: Pupils are round and equally reacting to light. EOMI. No scleral icterus. No conjunctival pallor. Normocephalic, atraumatic. No pharyngeal erythema. No thyromegaly. CARDIOVASCULAR: S1 and S2 muffled, irregular PULMONARY: Diminished breath sounds bilaterally otherwise chest is clear to auscultation, no wheezing or crackles. ABDOMEN: Soft, obese, nontender, nondistended, normoactive bowel sounds. No palpable organomegaly. MUSCULOSKELETAL: No joint swelling or deformity. EXTREMITIES: No cyanosis, clubbing, or pedal edema. NEUROLOGICAL: Gross neurological examination did not reveal any focal deficits. Diffusely weak SKIN: No rashes. Assessment: Chest pain, rule out ACS Acute hypoxic respiratory failure secondary to above History of atrial fibrillation, currently rate controlled, maintained on Eliquis outpatient History of DVT/PE Hyperlipidemia Hypertension, uncontrolled with accelerated hypertension COPD, not in exacerbation History of osteoarthritis Prostate disorder History of previous cardiac ablation with cardioversion in 2022 Obesity with a BMI of 32.1 GI prophylaxis DVT prophylaxis Full code Plan: Patient presented with chest pain shortness of breath that was radiating to his back and also had some nausea with vomiting and diarrhea prior to coming. Patient denies any sick contacts and reported this started yesterday evening. Patient also with Reports of ongoing hypertension over the last 2 to 3 days and had been compliant with his medications. Patient to continue on telemetry monitoring and awaiting cardiology evaluation Patient currently maintained on 2 L via nasal cannula and reports he does not wear oxygen outpatient although 98 to 99% on 2 L recommend weaning as tolerated Continue consistent carb heart healthy diet and will add Accu-Cheks with ACHS and sliding scale and will resume appropriate home medications. Patient does take long-acting insulin at home as well. Adjust insulins accordingly Follow-up on repeat labs and will replace electrolytes per protocol. Troponin minimally elevated at 0.023, 0.030, 0.035 and will discuss further with cardiology regarding treatment plan moving forward. The impression and plan of care has been dictated by Perla Rivas, Nurse Practitioner as directed. Dr. Xochitl MD I have performed a history and examination and MDM of this patient, discussed the same with the dictator, and agree with the dictator's assessment and plan as written ,documented as a scribe. Based on total visit time, I have performed more than 50% of the visit. Past Medical History Past Medical History: Atrial Fibrillation, COPD, Diabetes Mellitus, Deep Vein Thrombosis (DVT), Hyperlipidemia, Hypertension, Osteoarthritis (OA), Prostate Disorder, Pulmonary Embolus (PE), Renal Disease, Skin Disorder Additional Past Medical History / Comment(s): "small heart attacks", gout, kidney stones. back pain. kidney function 40%, hypokalemia; cardioversion 08/02/22 History of Any Multi-Drug Resistant Organisms: None Reported Past Surgical History: Cholecystectomy, Heart Catheterization, Orthopedic Surgery Additional Past Surgical History / Comment(s): Cholecystectomy with hernia repair , Bilateral cataract surgery, left knee arthroscopy, ORIF left knee open reduction and internal fixation after injury, pain procedures, cardiac ablation Past Anesthesia/Blood Transfusion Reactions: No Reported Reaction Past Psychological History: No Psychological Hx Reported Smoking Status: Former smoker - Past Family History Father History Unknown: Yes Family Medical History: Cancer Additional Family Medical History / Comment(s): . Mother History Unknown: Yes Family Medical History: Cancer, Deep Vein Thrombosis (DVT) Additional Family Medical History / Comment(s): . Brother(s) Family Medical History: No Reported History Additional Family Medical History / Comment(s): from overdose Sister(s) Family Medical History: No Reported History Additional Family Medical History / Comment(s): Patient has 1 sister from drug overdose after chronic pain syndrome from low back pain. Medications and Allergies Home Medications Medication Instructions Recorded Confirmed Type allopurinoL [Zyloprim] 100 mg PO DAILY 08/08/14 05/28/24 History Montelukast [Singulair] 10 mg PO HS 10/21/17 05/28/24 History Apixaban [Eliquis] 5 mg PO BID 07/15/20 05/28/24 History Baclofen 10 mg PO TID 07/25/22 05/28/24 History Tamsulosin HCl [Flomax] 0.4 mg PO DAILY 07/25/22 05/28/24 History Aspirin EC [Ecotrin Low Dose] 81 mg PO DAILY 08/03/22 05/28/24 History ALPRAZolam [Xanax] 0.5 mg PO BID PRN 11/01/22 05/28/24 History Furosemide [Lasix] 20 mg PO Q48H 11/01/22 05/28/24 History Potassium Chloride [Potassium 20 meq PO DAILY 11/01/22 05/28/24 History Chloride ER (K-Dur GEQ)] Sertraline [Zoloft] 100 mg PO DAILY 11/01/22 05/28/24 History Atorvastatin [Lipitor] 40 mg PO DAILY 12/26/22 05/28/24 History Glimepiride [Amaryl] 4 mg PO BID 12/26/22 05/28/24 History oxyCODONE-APAP 10-325MG [Percocet 1 tab PO Q6HR PRN 02/10/24 05/28/24 History 10-325 mg] Gabapentin [Neurontin] 300 mg PO TID 05/28/24 05/28/24 History Insulin Glargine,Hum.rec.anlog 25 units SQ HS 05/28/24 05/28/24 History [Lantus Solostar Pen] Valsartan [Diovan] 320 mg PO DAILY 05/28/24 05/28/24 History amLODIPine [Norvasc] 10 mg PO HS 05/28/24 05/28/24 History hydrALAZINE HCL [Apresoline] 100 mg PO BID PRN 05/28/24 05/28/24 History tadalafiL 10 mg PO DAILY 05/28/24 05/28/24 History traZODone HCL [Desyrel] 100 mg PO HS 05/28/24 05/28/24 History Allergies Allergy/AdvReac Type Severity Reaction Status Date / Time No Known Allergies Allergy Verified 05/28/24 09:47 Physical Exam Vitals: Vital Signs Temp Pulse Resp BP Pulse Ox 05/28/24 13:48 98.9 F 72 16 127/63 98 05/28/24 11:00 73 18 105/49 99 05/28/24 10:40 75 16 126/60 05/28/24 10:00 87 17 118/65 92 L 05/28/24 09:00 73 18 83/58 92 L 05/28/24 08:00 93 18 128/64 91 L 05/28/24 07:01 84 17 143/69 96 05/28/24 06:07 98.4 F 83 20 197/80 98 Intake and Output 05/28/24 05/28/24 05/28/24 06:59 14:59 22:59 Other: Weight 104.326 kg Results CBC & Chem 7: 05/28/24 06:20 05/28/24 06:20 Labs: Abnormal Lab Results - Last 24 Hours (Table) 05/28/24 05/28/24 05/28/24 Range/Units 06:20 06:20 06:20 WBC 10.19 H (4.50-10.00) 10*3/uL MPV 9.3 L (9.5-12.2) fL Immature Gran # 0.05 H (0.00-0.04) 10*3/uL Neutrophils # 7.71 H (1.80-7.70) 10*3/uL PT 9.9 L (10.0-12.5) sec Carbon Dioxide 19 L (22-30) mmol/L BUN 25 H (9-20) mg/dL Glucose 211 H (74-99) mg/dL Alkaline Phosphatase 144 H (38-126) U/L Troponin I (0.000-0.034) ng/mL 05/28/24 Range/Units 11:50 WBC (4.50-10.00) 10*3/uL MPV (9.5-12.2) fL Immature Gran # (0.00-0.04) 10*3/uL Neutrophils # (1.80-7.70) 10*3/uL PT (10.0-12.5) sec Carbon Dioxide (22-30) mmol/L BUN (9-20) mg/dL Glucose (74-99) mg/dL Alkaline Phosphatase (38-126) U/L Troponin I 0.035 H* (0.000-0.034) ng/mL
[2024-05-28] MEDS ORDERED: ACETAMINOPHEN TAB 325 MG TAB PO PRN (15:21)
[2024-05-28] MEDS: TAMSULOSIN 0.4 MG CAP.ER.24H PO SCH (15:41)
[2024-05-28] MEDS: GABAPENTIN 300 MG CAP PO SCH (15:41)
[2024-05-28] MEDS: allopurinoL 100 MG TAB PO SCH (15:41)
[2024-05-28] MEDS: BACLOFEN 10 MG TAB PO SCH (15:41)
[2024-05-28] MEDS: ATORVASTATIN 40 MG TAB PO SCH (15:41)
[2024-05-28] MEDS: SERTRALINE 100 MG TAB PO SCH (15:57)
[2024-05-28 16:39] LABS: Influenza A Not Detected (Not Detectd); Influenza B Not Detected (Not Detectd); RSV Not Detected (Not Detectd)
[2024-05-28 17:31] LABS: Glucose,Whole Blood 92 mg/dL (70-110)
[2024-05-28] MEDS: INSULIN LISPRO (HumaLOG) 100 UNIT/ML 10 mL VL SQ SCH (17:32)
[2024-05-28 19:50] LABS: Glucose,Whole Blood 114 mg/dL (70-110)
[2024-05-28] MEDS: amLODIPine 10 MG TAB PO SCH (21:21)
[2024-05-28] MEDS: traZODone HCL 100 MG TAB PO SCH (21:21)
[2024-05-28] MEDS: INSULIN GLARGINE (LANTUS) 100 UNIT/ML SYR SQ SCH (21:22)
[2024-05-28] MEDS: APIXABAN 5 MG TAB PO SCH (21:22)
[2024-05-28] MEDS: MONTELUKAST 10 MG TAB PO SCH (21:22)
[2024-05-28] MEDS: oxyCODONE-APAP 10-325MG 1 EACH TAB PO PRN (21:28)
[2024-05-29 05:31] LABS: Glucose,Whole Blood 100 mg/dL (70-110)
[2024-05-29 09:23] LABS: ALT 16 U/L (10-49); AST 22 U/L (14-35); Albumin 3.8 g/dL (3.8-4.9); Alkaline Phosphatase 75 U/L (41-126); BUN/Creat Ratio 18.78 Ratio (12.00-20.00); Blood Urea Nitrogen 16.9 mg/dL (9.0-27.0); Calcium 8.5 mg/dL (8.7-10.3); Carbon Dioxide 23.3 mmol/L (21.6-31.8); Chloride 108 mmol/L (96-109); Glucose 89 mg/dL (70-110); Magnesium 2.1 mg/dL (1.5-2.4); Potassium 4.1 mmol/L (3.5-5.5); Sodium 141 mmol/L (135-145); Total Bilirubin 0.3 mg/dL (0.3-1.2); Total Protein 5.8 g/dL (6.2-8.2)
[2024-05-29 09:35] LABS: HCT 37.7 % (39.6-50.0); HGB 12.1 g/dL (13.0-17.0); MCH 31.4 pg (27.0-32.0); MCHC 32.1 g/dL (32.0-37.0); MCV 97.9 FL (80.0-97.0); Mean Platelet Volume 9.9 FL (9.5-12.2); NRBC Per 100 WBC 0 X 10*3/uL (0.00-0.01); Platelet Count 181 X 10*3/uL (140-440); RBC 3.85 X 10*6/uL (4.40-5.60); RDW 14.2 % (11.5-14.5); WBC 9.02 X 10*3/uL (4.50-10.00)
[2024-05-29 09:36] LABS: Basophils # (A) 0.01 X 10*3/uL (0.00-0.10); Basophils % (A) 0.1 %; Eosinophils # (A) 0.06 X 10*3/uL (0.04-0.35); Eosinophils % (A) 0.7 %; Lymphocytes # (A) 1.77 X 10*3/uL (0.90-5.00); Lymphocytes % (A) 19.6 %; Monocytes # (A) 0.77 X 10*3/uL (0.20-1.00); Monocytes % (A) 8.5 %; Neutrophils # (A) 6.37 X 10*3/uL (1.80-7.70); Neutrophils % (A) 70.7 %
[2024-05-29] MEDS: ASPIRIN 81 MG PO SCH (10:38)
[2024-05-29] MEDS: VALSARTAN 160 MG TAB PO SCH (10:38)
[2024-05-29] MEDS: TADALAFIL 10 MG PO SCH (10:39)
[2024-05-29 12:02] LABS: Glucose,Whole Blood 116 mg/dL (70-110)
--- NOTE | 2024-05-29 15:02 | P.CRDCN ---
History of Present Illness Consult date: 05/29/24 Requesting physician: Edison Ching Reason for Consult (text): chest pain Chief complaint: elevated blood pressure, chest pain History of present illness: This is a pleasant 69-year-old gentleman patient who follows with Dr. Hare at [facility] and the [facility] and was last seen about 8 or 9 months ago has been following annually with past medical history of CAD with a known IP ATTORNEY of the RCA with most recent cardiac catheterization about 2 years ago at [facility] according to the patient was stable, persistent atrial fibrillation, status post ablation x 2, pulmonary embolism 6 years ago, diabetes, hypertension, dyslipidemia, prior smoking quit about 3 years ago. Presented to the hospital with complaints of elevated blood pressure and chest discomfort. The day before yesterday his blood pressure had been elevated most of the day he had been following it closely. He has been having issues with his blood pressure being elevated and was initiated on hydralazine 25 mg twice a day as needed for systolic blood pressure greater than 160 by his primary care physician Dr. Long. At around 4 AM yesterday he began to have chest discomfort just right of center. The pain occurred at rest and was nonradiating. He had some shortness of breath as well as some nausea and vomiting. He was at that time feeling his heart pounding and skipping but denied any symptoms of atrial fibrillation. He continues to have pain in a localized area of the right side of the chest with palpation. Denies any nausea or vomiting at this time. His breathing is back to his baseline. He denies any orthopnea or PND. He denies any current complaints of palpitations, dizziness or lightheadedness. Diagnostics -EKG: Sinus rhythm -Chest x-ray: No acute pulmonary process -CTA: Focal severe stenosis proximal left common iliac artery, more moderate bilateral distal external iliac artery stenosis is present. Atherosclerotic disease and calcification involving the abdominal aorta and lower extremity vasculature. No aneurysmal dilatation evident -Laboratory studies: Hemoglobin 12.1, white blood cell count 9.02, sodium 141, potassium 4.1, BUN 16.9, creatinine 0.9, troponin 0.023, 0.030, 0.035 and 0.030 -Home cardiac medications: Hydralazine 25 mg p.o. twice daily as needed for systolic blood pressure greater than 160, amlodipine 10 milligrams p.o. daily, Lasix 20 mg p.o. every other day, Eliquis 5 mg p.o. twice daily, valsartan 320 mg p.o. daily, atorvastatin 40 mg p.o. daily and aspirin 81 mg p.o. daily -Prior stress test: January 2022 showed stress-induced ischemia involving the inferior wall as well as the apical septal wall and lateral wall with ejection fraction 34% -Echocardiogram: January 2022 normal LV systolic function with mild mitral regurgitation -Cardiac catheterization: Report not available per patient done 2 years ago and was stable with known IP ATTORNEY of the RCA Review Of Systems: At the time of my exam: CONSTITUTIONAL: Denies fever or chills. HEENT: Denies blurred vision, vision changes. CARDIOVASCULAR: Complains of chest pain with palpation. Denies orthopnea. Denies PND. Denies palpitations, dizziness, or syncope. RESPIRATORY: Denies shortness of breath, wheezing, or cough. Denies hemoptysis. GASTROINTESTINAL: Denies abdominal pain. Denies nausea or vomiting. Denies bleeding. HEMATOLOGIC: Denies bleeding disorders. GENITOURINARY: Denies hematuria. SKIN: Denies puritis. Denies rash. PHYSICAL EXAMINATION: This is a 69-year-old gentleman in no apparent distress at the time of my examination. VITAL SIGNS: Reviewed. HEENT: Head is atraumatic, normocephalic. Pupils are equal, round. Sclerae anicteric. Conjunctivae are clear. Mucous membranes of the mouth are moist. Neck is supple. There is no elevated jugular venous pressure. No carotid bruit is heard. CHEST EXAMINATION: Lungs reveal diminished air entry bilaterally. No wheezes rales or rhonchi. Respirations even and nonlabored. HEART EXAMINATION: Heart regular, positive S1 and S2. No S3. No S4. No clicks, rubs or murmurs. ABDOMEN: Soft, nontender. Bowel sounds are heard. No organomegaly noted. EXTREMITIES: 2+ peripheral pulses with no evidence of peripheral edema and no calf tenderness noted, lower extremity discoloration noted. NEUROLOGIC EXAMINATION: Patient is awake, alert and oriented x3. Assessment: 1. Symptoms of chest discomfort EKG unremarkable, very minimal troponin elevation, flat with peak troponin of 0.035 in the setting of hypertension, chest pain persists with palpation 2. CAD with known IP ATTORNEY of the RCA 3. Persistent atrial fibrillation, status post ablation x 2 4. Hypertension, uncontrolled 5. Hyperlipidemia 6. Diabetes mellitus Plan: We will add hydrochlorothiazide 25 mg p.o. daily. From cardiology's perspective we will obtain a 2D echo with Doppler study to assess cardiac structure and function. Depending on the findings of the echocardiogram and patient's symptoms further recommendations will be made. Thank you kindly for this consultation. Nurse practitioner note has been reviewed, I agree with documented findings and plan of care. Patient was seen and examined. Past Medical History Past Medical History: Atrial Fibrillation, COPD, Diabetes Mellitus, Deep Vein Thrombosis (DVT), Hyperlipidemia, Hypertension, Osteoarthritis (OA), Prostate Disorder, Pulmonary Embolus (PE), Renal Disease, Skin Disorder Additional Past Medical History / Comment(s): "small heart attacks", gout, kidney stones. back pain. kidney function 40%, hypokalemia; cardioversion History of Any Multi-Drug Resistant Organisms: None Reported Past Surgical History: Cholecystectomy, Heart Catheterization, Orthopedic Surgery Additional Past Surgical History / Comment(s): Cholecystectomy with hernia repair , Bilateral cataract surgery, left knee arthroscopy, ORIF left knee open reduction and internal fixation after injury, pain procedures, cardiac ablation Past Anesthesia/Blood Transfusion Reactions: No Reported Reaction Past Psychological History: No Psychological Hx Reported Additional Psychological History / Comment(s): claustrophobic Smoking Status: Former smoker Past Alcohol Use History: None Reported Additional Past Alcohol Use History / Comment(s): Patient is smoker 1 ppd since he was 11 years of age. Past Drug Use History: None Reported - Past Family History Father History Unknown: Yes Family Medical History: Cancer Additional Family Medical History / Comment(s): . Mother History Unknown: Yes Family Medical History: Cancer, Deep Vein Thrombosis (DVT) Additional Family Medical History / Comment(s): . Brother(s) Family Medical History: No Reported History Additional Family Medical History / Comment(s): from overdose Sister(s) Family Medical History: No Reported History Additional Family Medical History / Comment(s): Patient has 1 sister from drug overdose after chronic pain syndrome from low back pain. Medications and Allergies Home Medications Medication Instructions Recorded Confirmed Type allopurinoL [Zyloprim] 100 mg PO DAILY 08/08/14 05/28/24 History Montelukast [Singulair] 10 mg PO HS 10/21/17 05/28/24 History Apixaban [Eliquis] 5 mg PO BID 07/15/20 05/28/24 History Baclofen 10 mg PO TID 07/25/22 05/28/24 History Tamsulosin HCl [Flomax] 0.4 mg PO DAILY 07/25/22 05/28/24 History Aspirin EC [Ecotrin Low Dose] 81 mg PO DAILY 08/03/22 05/28/24 History ALPRAZolam [Xanax] 0.5 mg PO BID PRN 11/01/22 05/28/24 History Furosemide [Lasix] 20 mg PO Q48H 11/01/22 05/28/24 History Potassium Chloride [Potassium 20 meq PO DAILY 11/01/22 05/28/24 History Chloride ER (K-Dur GEQ)] Sertraline [Zoloft] 100 mg PO DAILY 11/01/22 05/28/24 History Atorvastatin [Lipitor] 40 mg PO DAILY 12/26/22 05/28/24 History Glimepiride [Amaryl] 4 mg PO BID 12/26/22 05/28/24 History oxyCODONE-APAP 10-325MG [Percocet 1 tab PO Q6HR PRN 02/10/24 05/28/24 History 10-325 mg] Gabapentin [Neurontin] 300 mg PO TID 05/28/24 05/28/24 History Insulin Glargine,Hum.rec.anlog 25 units SQ HS 05/28/24 05/28/24 History [Lantus Solostar Pen] Valsartan [Diovan] 320 mg PO DAILY 05/28/24 05/28/24 History amLODIPine [Norvasc] 10 mg PO HS 05/28/24 05/28/24 History hydrALAZINE HCL [Apresoline] 100 mg PO BID PRN 05/28/24 05/28/24 History tadalafiL 10 mg PO DAILY 05/28/24 05/28/24 History traZODone HCL [Desyrel] 100 mg PO HS 05/28/24 05/28/24 History Allergies Allergy/AdvReac Type Severity Reaction Status Date / Time No Known Allergies Allergy Verified 05/28/24 09:47 Physical Exam Vitals: Vital Signs Temp Pulse Pulse Pulse Resp BP BP 05/29/24 07:00 98 F 53 L 16 05/29/24 00:47 98 F 76 20 127/57 05/28/24 18:50 98.9 F 77 20 124/52 05/28/24 14:43 98.5 F 80 20 152/54 05/28/24 13:48 98.9 F 72 16 127/63 05/28/24 11:00 73 18 105/49 05/28/24 10:40 75 16 126/60 BP Pulse Ox 05/29/24 07:00 126/57 98 05/29/24 00:47 93 L 05/28/24 18:50 94 L 05/28/24 14:43 97 05/28/24 13:48 98 05/28/24 11:00 99 05/28/24 10:40 Intake and Output 05/28/24 05/29/24 05/29/24 22:59 06:59 14:59 Intake Total 222 Balance 222 Intake: Oral 222 Other: # Voids 2 3 # Bowel Movements 1 Weight 104.326 kg Results 05/29/24 04:51 05/29/24 04:51 Cardiac Enzymes 05/28/24 05/28/24 05/29/24 Range/Units 11:50 18:57 04:51 AST 22 (14-35) U/L Troponin I 0.035 H* 0.030 (0.000-0.034) ng/mL CBC 05/29/24 Range/Units 04:51 WBC 9.02 (4.50-10.00) X 10*3/uL RBC 3.85 L (4.40-5.60) X 10*6/uL Hgb 12.1 L (13.0-17.0) g/dL Hct 37.7 L (39.6-50.0) % Plt Count 181 (140-440) X 10*3/uL Comprehensive Metabolic Panel 05/29/24 Range/Units 04:51 Sodium 141 (135-145) mmol/L Potassium 4.1 (3.5-5.5) mmol/L Chloride 108 (96-109) mmol/L Carbon Dioxide 23.3 (21.6-31.8) mmol/L BUN 16.9 (9.0-27.0) mg/dL Creatinine 0.9 (0.6-1.5) mg/dL Glucose 89 (70-110) mg/dL Calcium 8.5 L (8.7-10.3) mg/dL AST 22 (14-35) U/L ALT 16 (10-49) U/L Alkaline Phosphatase 75 (41-126) U/L Total Protein 5.8 L (6.2-8.2) g/dL Albumin 3.8 (3.8-4.9) g/dL Current Medications Generic Name Dose Route Start Last Admin Trade Name Freq PRN Reason Stop Dose Admin Acetaminophen 650 mg 05/28/24 15:21 Acetaminophen Tab 325 Mg Tab PO Q6HR PRN Mild Pain or Fever > 100.5 Allopurinol 100 mg 05/28/24 15:00 05/28/24 15:41 Allopurinol 100 Mg Tab PO 100 mg DAILY JOSE Administration Alprazolam 0.5 mg 05/28/24 15:00 Alprazolam 0.5 Mg Tab PO BID PRN panic attack Amlodipine Besylate 10 mg 05/28/24 21:00 05/28/24 21:21 Amlodipine 10 Mg Tab PO 10 mg HS JOSE Administration Apixaban 5 mg 05/28/24 21:00 05/28/24 21:22 Apixaban 5 Mg Tab PO 5 mg BID JOSE Administration Protocol Aspirin 81 mg 05/29/24 09:00 Aspirin 81 Mg PO DAILY JOSE Atorvastatin Calcium 40 mg 05/28/24 15:15 05/28/24 15:41 Atorvastatin 40 Mg Tab PO 40 mg DAILY JOSE Administration Baclofen 10 mg 05/28/24 16:00 05/28/24 21:22 Baclofen 10 Mg Tab PO 10 mg TID JOSE Administration Dextrose/Water 25 ml 05/28/24 15:03 Dextrose 50% Syringe 50 Ml IVP PER PROTOCOL PRN Hypoglycemia Protocol Dextrose/Water 50 ml 05/28/24 15:03 Dextrose 50% Syringe 50 Ml IVP PER PROTOCOL PRN Hypoglycemia Protocol Gabapentin 300 mg 05/28/24 16:00 05/28/24 21:21 Gabapentin 300 Mg Cap PO 300 mg TID JOSE Administration Hydralazine HCl 100 mg 05/28/24 15:00 Hydralazine Hcl 50 Mg Tab PO BID PRN SBP >160 Hydromorphone HCl 0.5 mg 05/28/24 08:43 Hydromorphone 0.5 Mg/0.5 Ml Syringe IVP Q3HR PRN Moderate Pain (Scale 4 to 6) Hydromorphone HCl 1 mg 05/28/24 14:14 Hydromorphone 2 Mg/Ml 1 Ml Syringe IVP Q3HR PRN Severe Pain (Scale 7 to 10) Insulin Glargine 25 unit 05/28/24 21:00 05/28/24 21:22 Insulin Glargine (Lantus) 100 Unit/Ml Syr SQ 25 unit HS JOSE Administration Insulin Human Lispro 0 unit 05/28/24 17:30 05/29/24 06:27 Insulin Lispro (Humalog) 100 Unit/Ml 10 Ml Vl SQ Not Given ACHS [facility] Protocol Montelukast Sodium 10 mg 05/28/24 21:00 05/28/24 21:22 Montelukast 10 Mg Tab PO 10 mg HS JOSE Administration Naloxone HCl 0.2 mg 05/28/24 08:43 Naloxone 0.4 Mg/Ml 1 Ml Vial IV Q2M PRN Opioid Reversal Patient's Own ( 10 mg 05/29/24 09:00 Tadalafil [Tadalafil PO ] 10 Mg Tablet) DAILY JOSE Ondansetron HCl 4 mg 05/28/24 15:21 Ondansetron 4 Mg/2 Ml Vial IVP Q6H PRN Nausea And Vomiting Oxycodone/Acetaminophen 1 each 05/28/24 15:00 05/28/24 21:28 Oxycodone-Apap 10-325mg 1 Each Tab PO 1 each Q6HR PRN Administration Pain Sertraline HCl 100 mg 05/28/24 15:15 05/28/24 15:57 Sertraline 100 Mg Tab PO 100 mg DAILY JOSE Administration Tamsulosin HCl 0.4 mg 05/28/24 15:15 05/28/24 15:41 Tamsulosin 0.4 Mg Cap.Er.24h PO 0.4 mg DAILY JOSE Administration Trazodone HCl 100 mg 05/28/24 21:00 05/28/24 21:21 Trazodone Hcl 100 Mg Tab PO 100 mg HS JOSE Administration Valsartan 320 mg 05/29/24 09:00 Valsartan 160 Mg Tab PO DAILY JOSE Intake and Output 05/28/24 05/29/24 05/29/24 22:59 06:59 14:59 Intake Total 222 Balance 222 Intake: Oral 222 Other: # Voids 2 3 # Bowel Movements 1 Weight 104.326 kg 05/29/24 04:51 05/29/24 04:51
--- NOTE | 2024-05-29 15:38 | CA ---
Transthoracic Echo Report Name: Aravind Perea Age: 69 Gender: M : 1955 Exam Date: 05/29/2024 12:50 Exam Location: [facility] Ht (in): 71 Wt (lb): 230 Ordering Physician: Michelle Stubbs Attending/Referring Phys: [id number], Evelyne Carton Forming Machine Operator Bessie Hart RDCS Procedure CPT: Indications: chest pain, cad Cardiac Hx: Technical Quality: Fair Contrast 1: Definity Total Dose (mL): 2 Contrast 2: Total Dose (mL): MEASUREMENTS (Male / Female) Normal Values 2D ECHO LV Diastolic Diameter PLAX 5.7 cm 4.2 - 5.9 / 3.9 - 5.3 cm LV Systolic Diameter PLAX 4.2 cm IVS Diastolic Thickness 1.1 cm 0.6 - 1.0 / 0.6 - 0.9 cm LVPW Diastolic Thickness 1.0 cm 0.6 - 1.0 / 0.6 - 0.9 cm LV Relative Wall Thickness 0.4 RV Internal Dim ED PLAX 4.0 cm LVOT Diameter 2.2 cm LV Diastolic Volume MOD BP 196.4 cm??? 67 - 155 / 56 - 104 cm??? LV Systolic Volume MOD BP 92.3 cm??? 22 - 58 / 19 - 49 cm??? LV Ejection Fraction MOD BP 53.0 % >= 55 % LV Cardiac Index MOD BP 3596.4 cm???/min???m??? LV Diastolic Volume MOD 4C 187.5 cm??? LV Systolic Volume MOD 4C 77.9 cm??? LV Ejection Fraction MOD 4C 58.4 % LV Cardiac Index MOD 4C 3785.8 cm???/min???m??? LV Diastolic Length 4C 10.1 cm LV Systolic Length 4C 9.3 cm LV Diastolic Volume MOD 2C 205.1 cm??? LV Systolic Volume MOD 2C 106.4 cm??? LV Ejection Fraction MOD 2C 48.1 % LV Cardiac Index MOD 2C 3409.8 cm???/min???m??? LV Diastolic Length 2C 10.2 cm LV Systolic Length 2C 8.9 cm LA Volume 83.9 cm??? 18 - 58 / 22 - 52 cm??? LA Volume Index 36.2 cm???/m??? 16 - 28 cm???/m??? DOPPLER AV Peak Velocity 146.3 cm/s AV Peak Gradient 8.6 mmHg AV Mean Velocity 109.0 cm/s AV Mean Gradient 5.1 mmHg AV Velocity Time Integral 34.8 cm LVOT Peak Velocity 106.3 cm/s LVOT Peak Gradient 4.5 mmHg LVOT Velocity Time Integral 24.2 cm LVOT Stroke Volume 91.6 cm??? LVOT Stroke Volume Index 40.9 ml/m??? LVOT Cardiac Index 3163.7 cm???/min???m??? AV Area Cont Eq vti 2.6 cm??? AV Area Cont Eq pk 2.7 cm??? MV Area PHT 4.2 cm??? Mitral E Point Velocity 109.9 cm/s Mitral A Point Velocity 65.3 cm/s Mitral E to A Ratio 1.7 MV Deceleration Time 180.8 ms MV E' Velocity 5.2 cm/s Mitral E to MV E' Ratio 21.0 FINDINGS Left Ventricle Mild concentric left ventricular hypertrophy. Normal left ventricular systolic function with no obvious regional wall motion abnormalities. Left ventricular ejection fraction is estimated at 55 to 60 %. Grade 2 diastolic dysfunction. Right Ventricle Mild to moderate right ventricular dilatation. Right Atrium Normal right atrial size. Left Atrium Moderately increased left atrial volume. Mildly increased left atrial area. Mitral Valve Structurally normal mitral valve. Moderate mitral regurgitation.mitral annular calcification. Aortic Valve Trileaflet aortic valve. No aortic valve stenosis or regurgitation. Tricuspid Valve Structurally normal tricuspid valve. Mild tricuspid regurgitation. Pulmonic Valve Structurally normal pulmonic valve. Trace pulmonic regurgitation. Pericardium No pericardial effusion. Aorta Normal size aortic root and proximal ascending aorta. CONCLUSIONS 1. Normal left ventricular size and systolic function 2. Moderate mitral with mild tricuspid regurgitation Previewed by: Dr. Rick Stock MD (Electronically Signed) Final Date: 29 May 2024 15:37
[2024-05-29] MEDS: hydroCHLOROthiazide 25 MG TAB PO SCH (16:20)
[2024-05-29 17:46] LABS: Glucose,Whole Blood 157 mg/dL (70-110)
[2024-05-29 19:47] LABS: Glucose,Whole Blood 197 mg/dL (70-110)
[2024-05-30 05:51] LABS: Glucose,Whole Blood 113 mg/dL (70-110)
--- NOTE | 2024-05-30 06:10 | P.PN ---
Subjective Progress Note Date: 05/29/24 This is a 69-year-old male who presented to the emergency department with with reports of chest pain and uncontrolled blood pressure. Patient reports the chest pain started around 4 AM when he was trying to lay down and pain persisted and started developing some increasing shortness of breath and also nausea with vomiting and diarrhea. Patient reports he follows with Dr. Long in the outpatient setting with a significant past medical history of atrial fibrillation, maintained on Eliquis, COPD, diabetes mellitus, DVT, hyperlipidemia, hypertension, osteoarthritis, prostate disorder, previous PE, renal disease, underwent cardioversion in 2022 with cardiac ablation. Patient is a former smoker although does not smoke anymore and denies any other illicit alcohol or drug use. EKG showed sinus rhythm with a septal myocardial infarction probably old with a heart rate of 82 QT 405/QTc 443. Chest x-ray shows no acute pulmonary process. Labs on admission reveal a white count of 10.19, hemoglobin 14.0, platelets 222, PT 9.9 with an INR of 0.9, sodium 137, potassium 4.1, BUN 25, creatinine 0.91, blood glucose random was 211, initial troponin 0.023, second is 0.030, third troponin is 0.035. Patient also underwent thoracic CT angio as patient had reported chest pain with back pain and reveals no aortic dissection evident renal arteries are patent and there is focal severe stenosis proximal left common iliac artery and more moderate bilateral distal external iliac artery stenosis present. Patient is being admitted to the hospital for chest pain for cardiology to evaluate. 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 Patient reports his blood pressure has been elevated over the last few days and persistently remaining elevated despite being compliant with medications. Patient evaluated today resting in bed. The right sided chest pain is essentially gone. He is pending cardiac evaluation and echocardiogram. Was w eaned off oxygen with saturations of 98% on room air. Blood pressure 120/80s. REVIEW OF SYSTEMS: CONSTITUTIONAL: No fever, no malaise, no fatigue. HEENT: No recent visual problems or hearing problems. Denied any sore throat. CARDIOVASCULAR: Reports of chest pain, orthopnea, PND, no palpitations, no syncope. PULMONARY: Reports of shortness of breath, no cough, no hemoptysis. GASTROINTESTINAL: Reports having diarrhea at home prior to hospitalization, reports nausea, reports vomiting, no abdominal pain. NEUROLOGICAL: No headaches, no weakness, no numbness. PHYSICAL EXAMINATION: GENERAL: The patient is alert and oriented x3, elderly appearing, well developed, well nourished. Obese HEENT: Pupils are round and equally reacting to light. EOMI. No scleral icterus. No conjunctival pallor. Normocephalic, atraumatic. No pharyngeal erythema. No thyromegaly. CARDIOVASCULAR: S1 and S2 muffled, irregular PULMONARY: Diminished breath sounds bilaterally otherwise chest is clear to auscultation, no wheezing or crackles. ABDOMEN: Soft, obese, nontender, nondistended, normoactive bowel sounds. No palpable organomegaly. MUSCULOSKELETAL: No joint swelling or deformity. EXTREMITIES: No cyanosis, clubbing, or pedal edema. NEUROLOGICAL: Gross neurological examination did not reveal any focal deficits. Diffusely weak SKIN: No rashes. Assessment: Chest pain, rule out ACS Acute hypoxic respiratory failure secondary to above History of atrial fibrillation, currently rate controlled, maintained on Eliquis outpatient History of DVT/PE Hyperlipidemia Hypertension, uncontrolled with accelerated hypertension COPD, not in exacerbation History of osteoarthritis Prostate disorder History of previous cardiac ablation with cardioversion in 2022 Obesity with a BMI of 32.1 GI prophylaxis DVT prophylaxis Full code Plan: Patient presented with chest pain shortness of breath that was radiating to his back and also had some nausea with vomiting and diarrhea prior to coming. Patient denies any sick contacts and reported this started yesterday evening. Patient also with Reports of ongoing hypertension over the last 2 to 3 days and had been compliant with his medications. Patient to continue on telemetry monitoring and awaiting cardiology evaluation Continue consistent carb heart healthy diet and will add Accu-Cheks with ACHS and sliding scale and will resume appropriate home medications. Patient does take long-acting insulin at home as well. Adjust insulins accordingly Follow-up on repeat labs and will replace electrolytes per protocol. Troponin minimally elevated at 0.023, 0.030, 0.035 and will discuss further with cardiology regarding treatment plan moving forward. Echocardiogram pending. The impression and plan of care has been dictated by Leah Cast , Nurse Practitioner as directed. Dr. Xochitl MD I have performed a history and examination and MDM of this patient, discussed the same with the dictator, and agree with the dictator's assessment and plan as written ,documented as a scribe. Based on total visit time, I have performed more than 50% of the visit. Objective - Vital Signs Vital signs: Vital Signs Temp 97.8 F 05/30/24 00:45 Pulse 74 05/30/24 00:45 Resp 20 05/30/24 00:45 BP 141/76 05/30/24 00:45 Pulse Ox 96 05/30/24 00:45 FiO2 Intake & Output 05/29/24 05/29/24 05/30/24 06:59 18:59 06:59 Intake Total 222 118 222 Balance 222 118 222 Intake: Oral 222 118 222 Other: # Voids 3 3 2 # Bowel Movements 1 - Labs CBC & Chem 7: 05/29/24 04:51 05/29/24 04:51 Labs: Abnormal Lab Results - Last 24 Hours (Table) 05/29/24 05/29/24 05/29/24 Range/Units 04:51 04:51 04:51 RBC 3.85 L (4.40-5.60) X 10*6/uL Hgb 12.1 L (13.0-17.0) g/dL Hct 37.7 L (39.6-50.0) % MCV 97.9 H (80.0-97.0) FL POC Glucose (mg/dL) (70-110) mg/dL Hemoglobin A1c 6.5 H (<=6.0) % Calcium 8.5 L (8.7-10.3) mg/dL Total Protein 5.8 L (6.2-8.2) g/dL 05/29/24 05/29/24 05/29/24 Range/Units 12:00 17:44 19:45 RBC (4.40-5.60) X 10*6/uL Hgb (13.0-17.0) g/dL Hct (39.6-50.0) % MCV (80.0-97.0) FL POC Glucose (mg/dL) 116 H 157 H 197 H (70-110) mg/dL Hemoglobin A1c (<=6.0) % Calcium (8.7-10.3) mg/dL Total Protein (6.2-8.2) g/dL 05/30/24 Range/Units 05:49 RBC (4.40-5.60) X 10*6/uL Hgb (13.0-17.0) g/dL Hct (39.6-50.0) % MCV (80.0-97.0) FL POC Glucose (mg/dL) 113 H (70-110) mg/dL Hemoglobin A1c (<=6.0) % Calcium (8.7-10.3) mg/dL Total Protein (6.2-8.2) g/dL Assessment and Plan Time with Patient: Less than 30
[2024-05-30 12:18] LABS: Glucose,Whole Blood 155 mg/dL (70-110)
[2024-05-30 13:08] LABS: Glucose,Whole Blood 120 mg/dL (70-110)
--- NOTE | 2024-05-30 14:19 | P.PN ---
Subjective Progress Note Date: 05/30/24 PROGRESS NOTE The patient is a 69-year-old male with a known history of CAD, chronic total occlusion of the RCA, atrial fibrillation status post ablation, history of pulmonary embolism, hypertension and hyperlipidemia who presented with elevated blood pressure and chest discomfort. He continues to have chest discomfort, musculoskeletal and reproducible by palpation. He denies any significant dyspnea, dizziness or palpitations. He continues to be in sinus mechanism. He denies any nausea or vomiting. He continues to have episodes of elevated blood pressure. Medications: Amlodipine 10 mg daily, Eliquis 5 mg twice a day, aspirin once a day, Lipitor 40 mg daily, hydrochlorothiazide 25 mg daily, insulin, Singulair, valsartan 320 mg daily PHYSICAL EXAMINATION: Blood pressure 150/57 heart rate 60 LUNGS: Clear to auscultation HEART: Regular rate and rhythm, S1, S2. No S3. Systolic ejection murmur ABDOMEN: Soft, nontender, no organomegaly EXTREMETIES: No edema IMPRESSION: 1. Chest discomfort, noncardiac, musculoskeletal 2. Hypertension, under better control 3. History of atrial fibrillation, post ablation, maintaining sinus mechanism 4. Hyperlipidemia PLAN: 1. Add hydralazine 25 mg twice a day 2. Increase physical activity 3. Follow blood pressure 4. If stable probable discharge home soon and follow-up with primary pharmaceutical officer at [facility] cardiology Objective - Vital Signs Vital signs: Vital Signs Temp 98.4 F 05/30/24 07:00 Pulse 52 L 05/30/24 07:00 Resp 16 05/30/24 07:00 BP 150/57 05/30/24 07:00 Pulse Ox 97 05/30/24 07:00 FiO2 Intake & Output 05/29/24 05/30/24 05/30/24 18:59 06:59 18:59 Intake Total 118 222 118 Balance 118 222 118 Intake: Oral 118 222 118 Other: # Voids 3 2 3 # Bowel Movements 1 - Labs CBC & Chem 7: 05/29/24 04:51 05/29/24 04:51 Labs: Abnormal Lab Results - Last 24 Hours (Table) 05/29/24 05/29/24 05/30/24 Range/Units 17:44 19:45 05:49 POC Glucose (mg/dL) 157 H 197 H 113 H (70-110) mg/dL 05/30/24 05/30/24 Range/Units 12:16 13:06 POC Glucose (mg/dL) 155 H 120 H (70-110) mg/dL
[2024-05-30] MEDS: hydrALAZINE HCL 25 MG TAB PO SCH (16:36)
[2024-05-30 17:40] LABS: Glucose,Whole Blood 138 mg/dL (70-110)
[2024-05-30 19:53] LABS: Glucose,Whole Blood 284 mg/dL (70-110)
--- NOTE | 2024-05-30 22:03 | P.PN ---
Subjective Progress Note Date: 05/30/24 This is a 69-year-old male who presented to the emergency department with with reports of chest pain and uncontrolled blood pressure. Patient reports the chest pain started around 4 AM when he was trying to lay down and pain persisted and started developing some increasing shortness of breath and also nausea with vomiting and diarrhea. Patient reports he follows with Dr. Long in the outpatient setting with a significant past medical history of atrial fibrillation, maintained on Eliquis, COPD, diabetes mellitus, DVT, hyperlipidemia, hypertension, osteoarthritis, prostate disorder, previous PE, renal disease, underwent cardioversion in 2022 with cardiac ablation. Patient is a former smoker although does not smoke anymore and denies any other illicit alcohol or drug use. EKG showed sinus rhythm with a septal myocardial infarction probably old with a heart rate of 82 QT 405/QTc 443. Chest x-ray shows no acute pulmonary process. Labs on admission reveal a white count of 10.19, hemoglobin 14.0, platelets 222, PT 9.9 with an INR of 0.9, sodium 137, potassium 4.1, BUN 25, creatinine 0.91, blood glucose random was 211, initial troponin 0.023, second is 0.030, third troponin is 0.035. Patient also underwent thoracic CT angio as patient had reported chest pain with back pain and reveals no aortic dissection evident renal arteries are patent and there is focal severe stenosis proximal left common iliac artery and more moderate bilateral distal external iliac artery stenosis present. Patient is being admitted to the hospital for chest pain for cardiology to evaluate. 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 Patient reports his blood pressure has been elevated over the last few days and persistently remaining elevated despite being compliant with medications. Patient evaluated today resting in bed. The right sided chest pain is essentially gone. He is pending cardiac evaluation and echocardiogram. Was w eaned off oxygen with saturations of 98% on room air. Blood pressure 120/80s. 05/30/2024 Patient evaluated in follow-up he continues to report some midsternal chest pressure. He states that it feels worse when his blood pressure is elevated. Echocardiogram comes back revealing an ejection fraction of 55 to 60% with a grade 2 diastolic dysfunction. Moderate mitral with mild tricuspid regurgitati on. Patient frustrated with medication changes; he remains on valsartan, amlodipine and hydrochlorothiazide was added. Blood pressure remains in the 160s systolic. Further recommendations from cardiology currently pending. REVIEW OF SYSTEMS: CONSTITUTIONAL: No fever, no malaise, no fatigue. HEENT: No recent visual problems or hearing problems. Denied any sore throat. CARDIOVASCULAR: Reports of chest pain, orthopnea, PND, no palpitations, no syncope. PULMONARY: Reports of shortness of breath, no cough, no hemoptysis. GASTROINTESTINAL: Reports having diarrhea at home prior to hospitalization, reports nausea, reports vomiting, no abdominal pain. NEUROLOGICAL: No headaches, no weakness, no numbness. PHYSICAL EXAMINATION: GENERAL: The patient is alert and oriented x3, elderly appearing, well developed, well nourished. Obese HEENT: Pupils are round and equally reacting to light. EOMI. No scleral icterus. No conjunctival pallor. Normocephalic, atraumatic. No pharyngeal erythema. No thyromegaly. CARDIOVASCULAR: S1 and S2 muffled, irregular PULMONARY: Diminished breath sounds bilaterally otherwise chest is clear to auscultation, no wheezing or crackles. ABDOMEN: Soft, obese, nontender, nondistended, normoactive bowel sounds. No palpable organomegaly. MUSCULOSKELETAL: No joint swelling or deformity. EXTREMITIES: No cyanosis, clubbing, or pedal edema. NEUROLOGICAL: Gross neurological examination did not reveal any focal deficits. Diffusely weak SKIN: No rashes. Assessment: Chest pain, rule out ACS Acute hypoxic respiratory failure secondary to above History of atrial fibrillation, currently rate controlled, maintained on Eliquis outpatient History of DVT/PE Hyperlipidemia Hypertension, uncontrolled with accelerated hypertension COPD, not in exacerbation History of osteoarthritis Prostate disorder History of previous cardiac ablation with cardioversion in 2022 Obesity with a BMI of 32.1 GI prophylaxis DVT prophylaxis Full code Plan: Patient presented with chest pain shortness of breath that was radiating to his back and also had some nausea with vomiting and diarrhea prior to coming. Patient denies any sick contacts and reported this started yesterday evening. Patient also with Reports of ongoing hypertension over the last 2 to 3 days and had been compliant with his medications. Patient to continue on telemetry monitoring Continue consistent carb heart healthy diet and will add Accu-Cheks with ACHS and sliding scale and will resume appropriate home medications. Patient does take long-acting insulin at home as well. Adjust insulins accordingly Follow-up on repeat labs and will replace electrolytes per protocol. Hydrochlorothiazide has been added as well as oral hydralazine. Likely discharge home in the next 24 hours if blood pressure is improved. The impression and plan of care has been dictated by Leah Cast , Nurse Practitioner as directed. Dr. Xochitl MD I have performed a history and examination and MDM of this patient, discussed the same with the dictator, and agree with the dictator's assessment and plan as written ,documented as a scribe. Based on total visit time, I have performed more than 50% of the visit. Objective - Vital Signs Vital signs: Vital Signs Temp 98.0 F 05/30/24 19:18 Pulse 79 05/30/24 19:18 Resp 18 05/30/24 19:18 BP 118/57 05/30/24 21:08 Pulse Ox 96 05/30/24 19:18 FiO2 Intake & Output 05/30/24 05/30/24 05/31/24 06:59 18:59 06:59 Intake Total 222 236 Balance 222 236 Intake: Oral 222 236 Other: # Voids 2 3 2 # Bowel Movements 1 - Labs CBC & Chem 7: 05/29/24 04:51 05/29/24 04:51 Labs: Abnormal Lab Results - Last 24 Hours (Table) 05/30/24 05/30/24 05/30/24 Range/Units 05:49 12:16 13:06 POC Glucose (mg/dL) 113 H 155 H 120 H (70-110) mg/dL 05/30/24 05/30/24 Range/Units 17:38 19:51 POC Glucose (mg/dL) 138 H 284 H (70-110) mg/dL Assessment and Plan Time with Patient: Less than 30
[2024-05-31 05:35] LABS: Glucose,Whole Blood 113 mg/dL (70-110)
[2024-05-31 05:48] LABS: African American GFR (CKD) 83 (>60 ml/min/1.73 sqM); Anion Gap 7 mmol/L; Blood Urea Nitrogen 23 mg/dL (9-20); Calcium 9.4 mg/dL (8.4-10.2); Carbon Dioxide 28 mmol/L (22-30); Chloride 102 mmol/L (98-107); Glucose 117 mg/dL (74-99); Non-African American GFR(CKD) 72 (>60 ml/min/1.73 sqM); Sodium 137 mmol/L (137-145)
[2024-05-31 07:52] VITALS: RESP 16
[2024-05-31 12:33] LABS: Glucose,Whole Blood 139 mg/dL (70-110)
[2024-05-31 15:14] VITALS: BP 138/68; PULSE 75; TEMP 98.2
== END 2024-05-31 15:53 | disposition home or self-care (01) ==
LOC: EC 06:04 → 6NMEDSUR 08:43
PROVIDERS: ADMIT Hospitalist; ATTEND Hospitalist
DX: R07.89 Other chest pain (principal); J96.01 Acute respiratory failure with hypoxia; I10 Essential (primary) hypertension; I48.19 Other persistent atrial fibrillation; J44.9 Chronic obstructive pulmonary disease, unspecified; I25.10 Atherosclerotic heart disease of native coronary artery without angina pectoris; I25.82 Chronic total occlusion of coronary artery; E78.5 Hyperlipidemia, unspecified; M19.90 Unspecified osteoarthritis, unspecified site; E11.9 Type 2 diabetes mellitus without complications; E66.9 Obesity, unspecified; N42.9 Disorder of prostate, unspecified; M10.9 Gout, unspecified; Z79.01 Long term (current) use of anticoagulants; Z79.4 Long term (current) use of insulin; Z68.32 Body mass index [BMI] 32.0-32.9, adult; Z79.82 Long term (current) use of aspirin; Z79.84 Long term (current) use of oral hypoglycemic drugs; Z79.899 Other long term (current) drug therapy; Z86.711 Personal history of pulmonary embolism; Z86.718 Personal history of other venous thrombosis and embolism; Z87.891 Personal history of nicotine dependence; Z87.442 Personal history of urinary calculi
CPT/HCPCS: 96361; 96374; 96375; 99285; 36415; 93005; 93306; 80053 ×2; 80048; 83690; 83735 ×2; 84484; 85025 ×2; 85610; 85730; 83036; 87636; 71046; 71275; 74174; G0378 ×4; J2060; J2270; J0780; J2405; Q9957; J1171; Q9967

== ENCOUNTER 2024-06-10 03:47 | Emergency (ER) | payer MEDICARE ==
--- NOTE | 2024-06-10 04:40 | ED ---
Arrhythmia/Palpitations HPI <Moon Asencio Mario - Last Filed: 06/10/24 08:51> - General Source: patient Mode of arrival: ambulatory Limitations: no limitations <More Anguiano - Last Filed: 06/12/24 11:47> - General Chief Complaint: Arrhythmia/Palpitations Stated Complaint: Hypertension, elevated heart rate Time Seen by Provider: 06/10/24 03:56 - History of Present Illness Initial Comments: Patient is a 69-year-old gentleman past medical history of hypertension,Atrial fibrillation, DVT, diabetes, COPD, hyperlipidemia presenting for palpitations and hypertension. Patient states he woke up at 2 AM feeling like his heart was pounding, he had a headache like he normally does when his blood pressure is too high. He checked his blood pressure and it was 210/105. Patient has taken all of his medications as prescribed and is prescribed 100 mg of hydralazine to be used as needed for hypertension. He took his hydralazine as well as a Xanax and took a hot shower. His blood pressure did improve to 188 systolic however he continued to have lightheadedness and mild chest pressure so came to the ER. He denies any changes in vision, focal numbness or weakness. Endorses shortness of breath. Denies fevers, chills or cough. Denies abdominal pain, nausea or vomiting. Denies lower extremity swelling. Denies focal numbness or weakness. States headache is like headaches he has had in the past when his blood pressure is high. (More Anguiano) - Related Data Home Medications Medication Instructions Recorded Confirmed allopurinoL [Zyloprim] 100 mg PO DAILY 08/08/14 05/28/24 Montelukast [Singulair] 10 mg PO HS 10/21/17 05/28/24 Apixaban [Eliquis] 5 mg PO BID 07/15/20 05/28/24 Baclofen 10 mg PO TID 07/25/22 05/28/24 Tamsulosin HCl [Flomax] 0.4 mg PO DAILY 07/25/22 05/28/24 Aspirin EC [Ecotrin Low Dose] 81 mg PO DAILY 08/03/22 05/28/24 ALPRAZolam [Xanax] 0.5 mg PO BID PRN 11/01/22 05/28/24 Furosemide [Lasix] 20 mg PO Q48H 11/01/22 05/28/24 Potassium Chloride [Potassium 20 meq PO DAILY 11/01/22 05/28/24 Chloride ER (K-Dur GEQ)] Sertraline [Zoloft] 100 mg PO DAILY 11/01/22 05/28/24 Atorvastatin [Lipitor] 40 mg PO DAILY 12/26/22 05/28/24 Glimepiride [Amaryl] 4 mg PO BID 12/26/22 05/28/24 oxyCODONE-APAP 10-325MG [Percocet 1 tab PO Q6HR PRN 02/10/24 05/28/24 10-325 mg] Gabapentin [Neurontin] 300 mg PO TID 05/28/24 05/28/24 Insulin Glargine,Hum.rec.anlog 25 units SQ HS 05/28/24 05/28/24 [Lantus Solostar Pen] Valsartan [Diovan] 320 mg PO DAILY 05/28/24 05/28/24 amLODIPine [Norvasc] 10 mg PO HS 05/28/24 05/28/24 hydrALAZINE HCL [Apresoline] 100 mg PO BID PRN 05/28/24 05/28/24 tadalafiL 10 mg PO DAILY 05/28/24 05/28/24 traZODone HCL [Desyrel] 100 mg PO HS 05/28/24 05/28/24 Previous Rx's Medication Instructions Recorded hydrALAZINE HCL [Apresoline] 25 mg PO BID #60 tab 05/31/24 hydroCHLOROthiazide [Hydrodiuril] 25 mg PO DAILY #30 tab 05/31/24 Allergies Allergy/AdvReac Type Severity Reaction Status Date / Time No Known Allergies Allergy Verified 06/10/24 03:51 Review of Systems ROS Other: All systems not noted in ROS Statement are negative. <Moon Asencio - Last Filed: 06/10/24 08:51> ROS Other: All systems not noted in ROS Statement are negative. <More Anguiano - Last Filed: 06/12/24 11:47> ROS Statement: Those systems with pertinent positive or pertinent negative responses have been documented in the HPI. Past Medical History Past Medical History: Atrial Fibrillation, COPD, Diabetes Mellitus, Deep Vein Thrombosis (DVT), Hyperlipidemia, Hypertension, Osteoarthritis (OA), Prostate Disorder, Pulmonary Embolus (PE), Renal Disease, Skin Disorder Additional Past Medical History / Comment(s): "small heart attacks", gout, kidney stones. back pain. kidney function 40%, hypokalemia; cardioversion 07/18 08/09 History of Any Multi-Drug Resistant Organisms: None Reported Past Surgical History: Cholecystectomy, Heart Catheterization, Orthopedic Surgery Additional Past Surgical History / Comment(s): Cholecystectomy with hernia re pair , Bilateral cataract surgery, left knee arthroscopy, ORIF left knee open reduction and internal fixation after injury, pain procedures, cardiac ablation Past Anesthesia/Blood Transfusion Reactions: No Reported Reaction Past Psychological History: Anxiety Smoking Status: Former smoker Past Alcohol Use History: None Reported Past Drug Use History: None Reported - Past Family History Father History Unknown: Yes Family Medical History: Cancer Additional Family Medical History / Comment(s): . Mother History Unknown: Yes Family Medical History: Cancer, Deep Vein Thrombosis (DVT) Additional Family Medical History / Comment(s): . Brother(s) Family Medical History: No Reported History Additional Family Medical History / Comment(s): from overdose Sister(s) Family Medical History: No Reported History Additional Family Medical History / Comment(s): Patient has 1 sister from drug overdose after chronic pain syndrome from low back pain. <Facundo Anguianoen - Last Filed: 06/12/24 11:47> General Exam Limitations: no limitations <EnglishMore - Last Filed: 06/12/24 11:47> - General Exam Comments Initial Comments: PE: CONSTITUTIONAL: No apparent distress, well appearing SKIN: Warm, dry, no jaundice, hives or petechiae EYES: Pupils are equally round, extraocular movements intact without nystagmus, clear conjunctiva, non-icteric sclera HENT: Normocephalic, atraumatic, moist mucus membranes, oropharynx clear without exudates NECK: , Full range of motion, normal appearance PULMONARY: Clear to auscultation without wheezes, rhonchi, or rales, normal excursion, no accessory muscle use and no stridor CARDIOVASCULAR: Regular rate, rhythm, normal S1 and S2. No appreciated murmurs, rubs or gallops. Strong radial pulses with intact distal perfusion. No lower extremity edema GASTROINTESTINAL: Soft, active bowel sounds throughout, non-tender, non- distended, no palpable masses, no rebound or guarding. No hepatosplenomegaly MUSCULOSKELETAL: Extremities have no gross deformity, no edema, redness, or swelling. NEUROLOGIC:_a/o x 3, GCS 15, normal mentation and speech. Moves all extremities x 4 without motor or sensory deficit, no focal neurologic deficits PSYCHIATRIC: Anxious mood and affect, thought process is clear and linear (More Anguiano) Course Vital Signs 06/10/24 06/10/24 06/10/24 03:51 03:59 06:00 Temperature 97.9 F 98.6 F Pulse Rate 89 84 77 Pulse Rate [ 86 Bilateral Standing Phlebotomy Technologist ] Respiratory 18 22 20 Rate Blood Pressure 132/72 129/103 137/59 O2 Sat by Pulse 98 98 Oximetry 06/10/24 06/10/24 06/10/24 06:21 08:02 10:22 Temperature 98.3 F Pulse Rate 73 75 Pulse Rate [ Bilateral Standing Phlebotomy Technologist ] Respiratory 18 22 Rate Blood Pressure 126/106 128/64 124/50 O2 Sat by Pulse 99 96 Oximetry EKG Findings - EKG Comments: EKG Findings:: Sinus rhythm with VPC, rate 78 bpm intervals within acceptable limits, no ST elevations or depressions, no arrhythmia <More Anguiano - Last Filed: 06/12/24 11:47> Medical Decision Making - Lab Data Result diagrams: 06/10/24 06:22 06/10/24 06:22 <Moon Asencio - Last Filed: 06/10/24 08:51> - Lab Data Result diagrams: 06/10/24 06:22 06/10/24 06:22 <More Anguiano - Last Filed: 06/12/24 11:47> - Medical Decision Making Was pt. sent in by a medical professional or institution (, PA, VEGETABLE II FARMWORKER, urgent care, hospital, or residential...) When possible be specific @ -No Did you speak to anyone other than the patient for history (EMS, parent, family, police, friend...)? What history was obtained from this source @ -No Did you review nursing and triage notes (agree or disagree)? Why? @ -I reviewed and agree with nursing and triage notes Were old charts reviewed (outside hosp., previous admission, EMS record, old EKG, old radiological studies, urgent care reports/EKG's, residential records)? 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 Differential Palpitations Ventricular arrhythmias, atrial arrhythmias, myocardial infarction, anemia, thyrotoxicosis, electrolyte imbalance, hypokalemia, pulmonary embolism, pulmonary disease, drugs, alcohol, anxiety, stress.... This is not meant to be an all-inclusive list. Though PE was considered, patient is currently anticoagulated on eliquis, is not hypoxic or tachycardic, and had CT chest performed about 2 weeks ago, therefor do not feel further workup for PE is indicated at this time EKG interpreted by me (3pts min.). @ -As above X-rays interpreted by me (1pt min.). @ pending at time of sign out CT interpreted by me (1pt min.). @ -None done U/S interpreted by me (1pt. min.). @ -None done What testing was considered but not performed or refused? (CT, X-rays, U/S, labs)? Why? @ -None What meds were considered but not given or refused? Why? @ -None Did you discuss the management of the patient with other professionals (professionals i.e. , PA, VEGETABLE II FARMWORKER, lab, RT, psych nurse, social science teacher, rn wound, teacher, parole or probation officer, trimming caser)? Give summary @ -No Was smoking cessation discussed for >3mins.? @ -No Was critical care preformed (if so, how long)? @ -No Were there social determinants of health that impacted care today? How? (Homelessness, low income, unemployed, alcoholism, drug addiction, transportation, low edu. Level, literacy, decrease access to med. care, custodial, rehab)? @ -No Was there de-escalation of care discussed even if they declined (Discuss DNR or withdrawal of care, Hospice)? @ -No What co-morbidities impacted this encounter? (DM, HTN, Smoking, COPD, CAD, Cancer, CVA, ARF, Chemo, Hep., AIDS, mental health diagnosis, sleep apnea, morbid obesity)? @Hypertension, A-fib on Eliquis, COPD Was patient admitted / discharged? Hospital course, mention meds given and route, prescriptions, significant lab abnormalities, going to OR and other pertinent info. @ -Signed out to oncoming physician pending Chest XR- This is a 69-year-old gentleman past medical history of hypertension, A-fib on eliquis, COPD presenting today for palpitations, headache and hypertension.Vital signs on arrival within acceptable limits, blood pressure 132/72. On my assessment patient is in no acute distress, resting comfortably. Respirations unlabored. Lungs clear to auscultation bilaterally. He has no focal neurologic deficits. He does have an anxious affect. Blood pressure is currently controlled. Endorses slight chest pressure and palpitations. He will givensublingual nitroglycerin aspirin, requested something for anxiety so we given Valium which should also help his lightheadedness, and Antivert for lightheadedness. Will obtain comprehensive labs to assess for signs of end organ damage from reported hypertension/signs of hypertensive emergency and chest x-ray. Patient agreeable with plan of care. Labs and imaging reviewed. Grossly within normal limits. Abnormal values not concerning for acute pathology related to presenting complaint. Troponin 0.024. This is downtrending from prior. On reassessment patient is sleeping comfortably. He states his symptoms have resolved. Blood pressure is controlled. He is pending chest x-ray. Discussed with patient discharge home versus admission for observation after chest XR is completed. Patient states that he would prefer discharge home. Pending chest x-ray patient will be signed out to oncoming physician, Dr. Asencio. Undiagnosed new problem with uncertain prognosis? @ -No Drug Therapy requiring intensive monitoring for toxicity (Heparin, Nitro, Insulin, Cardizem)? @ -No Were any procedures done? @ -No Diagnosis/symptom? Palpitations, Hypertension Acute, or Chronic, or Acute on Chronic? @Acute on chronic Uncomplicated (without systemic symptoms) or Complicated (systemic symptoms)? complicated Side effects of treatment? @ -No Exacerbation, Progression, or Severe Exacerbation? @ -No Poses a threat to life or bodily function? How? (Chest pain, [place], NH, pneumonia, PE, COPD, DKA, ARF, appy, cholecystitis, CVA, Diverticulitis, Homicidal, Suicidal, threat to staff... and all critical care pts) @No, not at time of sign out to oncoming physician (More Anguiano) - Lab Data Lab Results 06/10/24 06/10/24 06/10/24 Range/Units 06:22 06:22 06:22 WBC 12.35 H (4.50-10.00) 10*3/uL RBC 4.10 L (4.40-5.60) 10*6/uL Hgb 12.7 L (13.0-17.0) g/dL Hct 38.9 L (39.6-50.0) % MCV 94.9 (80.0-97.0) fL MCH 31.0 (27.0-32.0) pg MCHC 32.6 (32.0-37.0) g/dL Plt Count 210 (140-440) 10*3/uL MPV 9.9 (9.5-12.2) fL Immature Gran % (Auto) 0.3 % Neutrophils % 86.2 % Lymphocytes % 7.9 % Monocytes % 4.9 % Eosinophils % 0.6 % Basophils % 0.1 % Immature Gran # 0.04 (0.00-0.04) 10*3/uL Neutrophils # 10.65 H (1.80-7.70) 10*3/uL Lymphocytes # 0.97 (0.90-5.00) 10*3/uL Monocytes # 0.60 (0.20-1.00) 10*3/uL Eosinophils # 0.08 (0.04-0.35) 10*3/uL Basophils # 0.01 (0.00-0.10) 10*3/uL PT 9.7 L (10.0-12.5) sec INR 0.8 (<1.2) APTT 25.1 (22.0-30.0) sec Sodium 138 (137-145) mmol/L Potassium 4.1 (3.5-5.1) mmol/L Chloride 101 (98-107) mmol/L Carbon Dioxide 24 (22-30) mmol/L Anion Gap 13 mmol/L BUN 32 H (9-20) mg/dL Creatinine 1.13 (0.66-1.25) mg/dL Est GFR (CKD-EPI)AfAm 78 (>60 ml/min/1.73 sqM) Est GFR (CKD-EPI)NonAf 67 (>60 ml/min/1.73 sqM) Glucose 161 H (74-99) mg/dL Calcium 9.8 (8.4-10.2) mg/dL Magnesium 2.0 (1.6-2.3) mg/dL Total Bilirubin 0.4 (0.2-1.3) mg/dL AST 28 (17-59) U/L ALT 23 (4-49) U/L Alkaline Phosphatase 113 (38-126) U/L Troponin I (0.000-0.034) ng/mL NT-Pro-B Natriuret Pep 484 pg/mL Total Protein 6.6 (6.3-8.2) g/dL Albumin 4.1 (3.5-5.0) g/dL 06/10/24 Range/Units 06:22 WBC (4.50-10.00) 10*3/uL RBC (4.40-5.60) 10*6/uL Hgb (13.0-17.0) g/dL Hct (39.6-50.0) % MCV (80.0-97.0) fL MCH (27.0-32.0) pg MCHC (32.0-37.0) g/dL Plt Count (140-440) 10*3/uL MPV (9.5-12.2) fL Immature Gran % (Auto) % Neutrophils % % Lymphocytes % % Monocytes % % Eosinophils % % Basophils % % Immature Gran # (0.00-0.04) 10*3/uL Neutrophils # (1.80-7.70) 10*3/uL Lymphocytes # (0.90-5.00) 10*3/uL Monocytes # (0.20-1.00) 10*3/uL Eosinophils # (0.04-0.35) 10*3/uL Basophils # (0.00-0.10) 10*3/uL PT (10.0-12.5) sec INR (<1.2) APTT (22.0-30.0) sec Sodium (137-145) mmol/L Potassium (3.5-5.1) mmol/L Chloride (98-107) mmol/L Carbon Dioxide (22-30) mmol/L Anion Gap mmol/L BUN (9-20) mg/dL Creatinine (0.66-1.25) mg/dL Est GFR (CKD-EPI)AfAm (>60 ml/min/1.73 sqM) Est GFR (CKD-EPI)NonAf (>60 ml/min/1.73 sqM) Glucose (74-99) mg/dL Calcium (8.4-10.2) mg/dL Magnesium (1.6-2.3) mg/dL Total Bilirubin (0.2-1.3) mg/dL AST (17-59) U/L ALT (4-49) U/L Alkaline Phosphatase (38-126) U/L Troponin I 0.024 (0.000-0.034) ng/mL NT-Pro-B Natriuret Pep pg/mL Total Protein (6.3-8.2) g/dL Albumin (3.5-5.0) g/dL Disposition Is patient prescribed a controlled substance at d/c from ED?: No Time of Disposition: 08:51 <Moon Asencio - Last Filed: 06/10/24 08:51> <More Anguiano - Last Filed: 06/12/24 11:47> Clinical Impression: Palpitations Disposition: HOME SELF-CARE Condition: Stable Instructions (If sedation given, give patient instructions): Heart Palpitations (ED) Additional Instructions: Please follow-up with your primary care doctor and return for any new or worsening symptoms Referrals: Tanesha Long MD [Primary Care Provider] - 1-2 days
[2024-06-10] MEDS: ASPIRIN 81 MG PO STA (05:17)
[2024-06-10] MEDS: ACETAMINOPHEN TAB 500 MG TAB PO STA (05:18)
[2024-06-10] MEDS: MECLIZINE 12.5 MG TAB PO STA (05:19)
[2024-06-10] MEDS: NITROGLYCERIN SL TABS 0.4 MG TAB SUBLINGUAL STA (05:20)
[2024-06-10] MEDS: diazePAM 5 MG TAB PO STA ×2 (05:23→05:25)
[2024-06-10] MEDS: NITROGLYCERIN SL TABS 0.4 MG TAB SUBLINGUAL PRN (06:55)
[2024-06-10 06:58] LABS: Basophils # (A) 0.01 10*3/uL (0.00-0.10); Basophils % (A) 0.1 %; Eosinophils # (A) 0.08 10*3/uL (0.04-0.35); Eosinophils % (A) 0.6 %; HCT 38.9 % (39.6-50.0); HGB 12.7 g/dL (13.0-17.0); Lymphocytes # (A) 0.97 10*3/uL (0.90-5.00); Lymphocytes % (A) 7.9 %; MCHC 32.6 g/dL (32.0-37.0); MCV 94.9 fL (80.0-97.0); Mean Platelet Volume 9.9 fL (9.5-12.2); Monocytes % (A) 4.9 %; Neutrophils # (A) 10.65 10*3/uL (1.80-7.70); Neutrophils % (A) 86.2 %; Platelet Count 210 10*3/uL (140-440); RDW 13.9 % (11.5-14.5); WBC 12.35 10*3/uL (4.50-10.00)
[2024-06-10 07:07] LABS: INR 0.8 (<1.2); Partial Thromboplastin Time 25.1 sec (22.0-30.0); Prothrombin Time 9.7 sec (10.0-12.5)
[2024-06-10 07:10] LABS: ALT 23 U/L (4-49); AST 28 U/L (17-59); African American GFR (CKD) 78 (>60 ml/min/1.73 sqM); Albumin 4.1 g/dL (3.5-5.0); Alkaline Phosphatase 113 U/L (38-126); Anion Gap 13 mmol/L; Blood Urea Nitrogen 32 mg/dL (9-20); Calcium 9.8 mg/dL (8.4-10.2); Carbon Dioxide 24 mmol/L (22-30); Chloride 101 mmol/L (98-107); Glucose 161 mg/dL (74-99); Non-African American GFR(CKD) 67 (>60 ml/min/1.73 sqM); Potassium 4.1 mmol/L (3.5-5.1); Sodium 138 mmol/L (137-145); Total Bilirubin 0.4 mg/dL (0.2-1.3); Total Protein 6.6 g/dL (6.3-8.2)
[2024-06-10 07:19] LABS: NT-Pro-B-Type Natriuretic Pept 484 pg/mL
[2024-06-10 08:05] VITALS: TEMP 98.3
--- NOTE | 2024-06-10 08:26 | XR ---
EXAMINATION TYPE: XR chest 2V DATE OF EXAM: 06/10/2024 8:21 AM COMPARISON: Chest radiographs from 05/28/2024 TECHNIQUE: XR chest 2V Frontal and lateral views of the chest. CLINICAL INDICATION:Male, 69 years old with history of Chest Pain, shortness of breath; FINDINGS: Lungs/Pleura: There is no evidence of pleural effusion, focal consolidation, or pneumothorax. Pulmonary vascularity: Pulmonary vascular congestion. Heart/mediastinum: Cardiac size is normal. Musculoskeletal: Multiple level degenerative disc disease changes seen throughout the spine. IMPRESSION: No acute cardiopulmonary disease/process. [facility], , 06/10/2024 8:23 AM
[2024-06-10 10:23] VITALS: BP 124/50; PULSE 75; RESP 22
== END 2024-06-10 10:35 | disposition home or self-care (01) ==
LOC: EC 03:47
DX: R00.2 Palpitations (principal); I10 Essential (primary) hypertension; I48.91 Unspecified atrial fibrillation; E11.9 Type 2 diabetes mellitus without complications; E78.5 Hyperlipidemia, unspecified; J44.9 Chronic obstructive pulmonary disease, unspecified; Z86.718 Personal history of other venous thrombosis and embolism; Z87.891 Personal history of nicotine dependence
CPT/HCPCS: 36415; 71046; 80053; 83735; 83880; 84484; 85025; 85610; 85730; 93005; 99285

== ENCOUNTER 2024-07-11 01:37 | Inpatient (IN) | payer MEDICARE ==
[2024-07-11 02:07] LABS: Basophils # (A) 0.01 10*3/uL (0.00-0.10); Basophils % (A) 0.1 %; Eosinophils # (A) 0.11 10*3/uL (0.04-0.35); Eosinophils % (A) 1.4 %; HCT 36.7 % (39.6-50.0); HGB 12.5 g/dL (13.0-17.0); Lymphocytes # (A) 1.54 10*3/uL (0.90-5.00); Lymphocytes % (A) 19.6 %; MCH 32.3 pg (27.0-32.0); MCHC 34.1 g/dL (32.0-37.0); MCV 94.8 fL (80.0-97.0); Mean Platelet Volume 9.3 fL (9.5-12.2); Monocytes # (A) 0.57 10*3/uL (0.20-1.00); Monocytes % (A) 7.3 %; Neutrophils # (A) 5.62 10*3/uL (1.80-7.70); Neutrophils % (A) 71.5 %; Platelet Count 243 10*3/uL (140-440); RBC 3.87 10*6/uL (4.40-5.60); RDW 13.9 % (11.5-14.5); WBC 7.86 10*3/uL (4.50-10.00)
[2024-07-11 02:42] LABS: ALT 20 U/L (4-49); AST 35 U/L (17-59); African American GFR (CKD) 78 (>60 ml/min/1.73 sqM); Albumin 3.9 g/dL (3.5-5.0); Alkaline Phosphatase 112 U/L (38-126); Anion Gap 8 mmol/L; Blood Urea Nitrogen 30 mg/dL (9-20); Calcium 9.4 mg/dL (8.4-10.2); Carbon Dioxide 25 mmol/L (22-30); Chloride 103 mmol/L (98-107); Glucose 149 mg/dL (74-99); Non-African American GFR(CKD) 68 (>60 ml/min/1.73 sqM); Potassium 3.8 mmol/L (3.5-5.1); Sodium 136 mmol/L (137-145); Total Bilirubin 0.4 mg/dL (0.2-1.3); Total Protein 6.5 g/dL (6.3-8.2)
--- NOTE | 2024-07-11 05:12 | XR ---
EXAM: XR Chest, 1 View CLINICAL HISTORY: Chest Pain TECHNIQUE: Frontal view of the chest. COMPARISON: Chest radiograph 03/12/2024 FINDINGS: Lungs: Bilateral airspace opacities are present. Pleural space: Unremarkable. No pneumothorax. Heart: Unremarkable. No cardiomegaly. Mediastinum: Unremarkable. Normal mediastinal contour. Bones/joints: There are degenerative changes of the spine. No acute fracture. IMPRESSION: Bilateral airspace opacities may represent pulmonary edema and/or atypical infection.
[2024-07-11] MEDS ORDERED: NITROGLYCERIN SL TABS 0.4 MG TAB SUBLINGUAL PRN ×2 (06:10→09:40)
--- NOTE | 2024-07-11 07:29 | ED ---
Chest Pain HPI - General Chief Complaint: Dizziness Stated Complaint: Dizzy,Weakness Time Seen by Provider: 07/11/24 01:54 Source: patient Mode of arrival: ambulatory Limitations: no limitations - History of Present Illness Initial Comments: This patient is a 69-year-old man who presents to evaluation for chest pain. The patient states that he was trying to go to sleep tonight. He was lying down and then noticed that his heart rate seem to accelerate. He has history of previous atrial fibrillation, status post ablation, so he was somewhat anxious about this. He tried getting up and resting but when he checked his blood pressure it was elevated. The patient had a friend come and sit with him but he was still not feeling well so he presented to the emergency department. He did have some dyspnea at the time. On arrival here he is feeling better, no chest pain, no dyspnea. MD Complaint: chest pain -: hour(s) Onset: during rest Pain Location: substernal Pain Radiation: none Quality: dull Consistency: constant Improves With: nothing Worsens With: nothing Anginal Symptoms: diaphoresis, dyspnea Treatments Prior to Arrival: none - Related Data Home Medications Medication Instructions Recorded Confirmed allopurinoL [Zyloprim] 100 mg PO DAILY 08/08/14 07/11/24 Montelukast [Singulair] 10 mg PO HS 10/21/17 07/11/24 Apixaban [Eliquis] 5 mg PO BID 07/15/20 07/11/24 Baclofen 10 mg PO TID 07/25/22 07/11/24 Tamsulosin HCl [Flomax] 0.4 mg PO DAILY 07/25/22 07/11/24 ALPRAZolam [Xanax] 0.5 mg PO BID PRN 11/01/22 07/11/24 Furosemide [Lasix] 20 mg PO Q2D 11/01/22 07/11/24 Potassium Chloride [Potassium 20 meq PO Q2D 11/01/22 07/11/24 Chloride ER (K-Dur GEQ)] Sertraline [Zoloft] 100 mg PO DAILY 11/01/22 07/11/24 Atorvastatin [Lipitor] 40 mg PO DAILY 12/26/22 07/11/24 Glimepiride [Amaryl] 4 mg PO BID 12/26/22 07/11/24 oxyCODONE-APAP 10-325MG [Percocet 1 tab PO TID 02/10/24 07/11/24 10-325 mg] Gabapentin [Neurontin] 300 mg PO TID 05/28/24 07/11/24 Insulin Glargine,Hum.rec.anlog 30 units SQ HS 05/28/24 07/11/24 [Lantus Solostar Pen] Valsartan [Diovan] 320 mg PO DAILY 05/28/24 07/11/24 amLODIPine [Norvasc] 10 mg PO HS 05/28/24 07/11/24 tadalafiL 10 mg PO DAILY PRN 05/28/24 07/11/24 traZODone HCL [Desyrel] 100 mg PO HS 05/28/24 07/11/24 INSULIN ASPART (NovoLOG) [NovoLOG See Protocol SQ TID-W/MEALS PRN 07/11/24 07/11/24 (formulary)] MDD 12 units Meclizine [Antivert] 12.5 mg PO TID PRN 07/11/24 07/11/24 Nitroglycerin Sl Tabs [Nitrostat] 0.4 mg SUBLINGUAL Q5M PRN 07/11/24 07/11/24 hydrALAZINE HCL [Apresoline] 50 mg PO TID 07/11/24 07/11/24 Previous Rx's Medication Instructions Recorded Aspirin 81 mg PO DAILY #30 tab 07/13/24 Triamterene-Hctz 37.5-25Mg 1 each PO DAILY #30 cap 07/13/24 [Dyazide 37.5-25 Capsule] Allergies Allergy/AdvReac Type Severity Reaction Status Date / Time No Known Allergies Allergy Verified 07/11/24 10:24 Review of Systems ROS Statement: Those systems with pertinent positive or pertinent negative responses have been documented in the HPI. ROS Other: All systems not noted in ROS Statement are negative. Constitutional: Denies: fever, chills, weakness Respiratory: Denies: cough, dyspnea Cardiovascular: Reports: chest pain. Denies: palpitations, edema Gastrointestinal: Reports: abdominal pain, nausea. Denies: vomiting, diarrhea Genitourinary: Denies: dysuria, hematuria Musculoskeletal: Denies: back pain Skin: Denies: rash Neurological: Denies: headache, weakness EKG Findings - EKG Results: EKG: interpreted by ERMD, sinus rhythm (Rate 71 bpm), normal axis - Blocks, [place], Hypertrophy, ST Abn: QRS axis and voltage: low voltage (<0.5 MV total QRS and <1.0 MV in each precordial lead) Repolarization changes or abnormalities: nonspecific abnormality, ST segment, and/or T wave Past Medical History Past Medical History: Atrial Fibrillation, COPD, Diabetes Mellitus, Deep Vein Thrombosis (DVT), Hyperlipidemia, Hypertension, Osteoarthritis (OA), Prostate Disorder, Pulmonary Embolus (PE), Renal Disease, Skin Disorder Additional Past Medical History / Comment(s): "small heart attacks", gout, kidney stones. back pain. kidney function 40%, hypokalemia; cardioversion 08/02/22 History of Any Multi-Drug Resistant Organisms: None Reported Past Surgical History: Cholecystectomy, Heart Catheterization, Orthopedic Surgery Additional Past Surgical History / Comment(s): Cholecystectomy with hernia repair , Bilateral cataract surgery, left knee arthroscopy, ORIF left knee open reduction and internal fixation after injury, pain procedures, cardiac ablation Past Anesthesia/Blood Transfusion Reactions: No Reported Reaction Past Psychological History: Anxiety Smoking Status: Former smoker Past Alcohol Use History: None Reported Past Drug Use History: None Reported - Past Family History Father History Unknown: Yes Family Medical History: Cancer Additional Family Medical History / Comment(s): . Mother History Unknown: Yes Family Medical History: Cancer, Deep Vein Thrombosis (DVT) Additional Family Medical History / Comment(s): . Brother(s) Family Medical History: No Reported History Additional Family Medical History / Comment(s): from overdose Sister(s) Family Medical History: No Reported History Additional Family Medical History / Comment(s): Patient has 1 sister from drug overdose after chronic pain syndrome from low back pain. General Exam Limitations: no limitations General appearance: alert, in no apparent distress Head exam: Present: atraumatic, normocephalic Eye exam: Present: normal appearance. Absent: scleral icterus, conjunctival injection ENT exam: Present: normal oropharynx Neck exam: Present: normal inspection Respiratory exam: Present: normal lung sounds bilaterally. Absent: respiratory distress, wheezes, rales, rhonchi, stridor, accessory muscle use Cardiovascular Exam: Present: regular rate, normal rhythm, normal heart sounds. Absent: systolic murmur, diastolic murmur, rubs, gallop GI/Abdominal exam: Present: soft. Absent: distended, tenderness, guarding, rebound, rigid, mass Extremities exam: Present: normal inspection, normal capillary refill. Absent: pedal edema, calf tenderness Back exam: Present: normal inspection. Absent: CVA tenderness (R), CVA tenderness (L) Neurological exam: Present: alert Skin exam: Present: warm, dry, intact, normal color. Absent: rash Course Vital Signs 07/11/24 07/11/24 07/11/24 01:41 03:51 05:00 Temperature 97.6 F Pulse Rate 72 56 L 43 L Respiratory 18 15 18 Rate Blood Pressure 148/71 124/49 O2 Sat by Pulse 97 96 96 Oximetry 07/11/24 07/11/24 06:08 06:38 Temperature Pulse Rate 74 73 Respiratory 18 18 Rate Blood Pressure 174/84 118/48 O2 Sat by Pulse 99 95 Oximetry Chest Pain MDM - [facility] The patient had chest x-ray that I interpreted as negative for acute infiltrate, pneumothorax, congestive heart failure Was pt. sent in by a medical professional or institution ( PA, PUBLIC ADMINISTRATION PROFESSOR, urgent care, hospital, or halfway...) When possible be specific @ -[No] Did you speak to anyone other than the patient for history (EMS, parent, family, police, friend...)? What history was obtained from this source @ -[No] Did you review nursing and triage notes (agree or disagree)? Why? @ -[I reviewed and agree with nursing and triage notes] Were old charts reviewed (outside hosp., previous admission, EMS record, old EKG, old radiological studies, urgent care reports/EKG's, halfway records)? Report findings @ -[yes, old charts were reviewed] Differential Diagnosis (chest pain, altered mental status, abdominal pain women, abdominal pain men, vaginal bleeding, weakness, fever, dyspnea, syncope, headache, dizziness, GI bleed, back pain, seizure, CVA, palpatations, mental health, musculoskeletal)? @ -Differential Chest Pain: Stable Angina, Unstable Angina, STEMI, NSTEMI Aortic Dissection, Pneumothorax, Musculoskeletal, Esophageal Spasm GERD, Cholecystitis, Pancreatitis, Zoster, this is not meant to be an all-inclusive list. EKG interpreted by me (3pts min.). @ -[I interpreted as above] X-rays interpreted by me (1pt min.). @ -[I interpreted as above CT interpreted by me (1pt min.). @ -[None done] U/S interpreted by me (1pt. min.). @ -[None done] What testing was considered but not performed or refused? (CT, X-rays, U/S, labs)? Why? @ -[None] What meds were considered but not given or refused? Why? @ -[None] Did you discuss the management of the patient with other professionals (professionals i.e. , PA, PUBLIC ADMINISTRATION PROFESSOR, lab, RT, psych nurse, social security benefits interviewer, medicinal chemist, teacher, chief sales officer, case making machine operator)? Give summary @ -[Case discussed with admitting physician and treatment recommendations are incorporated Was smoking cessation discussed for >3mins.? @ -[No] Was critical care preformed (if so, how long)? @ -[No] Were there social determinants of health that impacted care today? How? (Homelessness, low income, unemployed, alcoholism, drug addiction, transportation, low edu. Level, literacy, decrease access to med. care, detention, rehab)? @ -[No] Was there de-escalation of care discussed even if they declined (Discuss DNR or withdrawal of care, Hospice)? DNR status @ -[No] What co-morbidities impacted this encounter? (DM, HTN, Smoking, COPD, CAD, Cancer, CVA, ARF, Chemo, Hep., AIDS, mental health diagnosis, sleep apnea, morbid obesity)? @ -[None] Was patient admitted / discharged? Hospital course, mention meds given and route, prescriptions, significant lab abnormalities, going to OR and other pertinent info. @ -[Patient is 69-year-old man here to have evaluation for chest pain and dizziness. The patient is found to have a borderline troponin and will be admitted to have further evaluation and treatment including cardiology consultation Undiagnosed new problem with uncertain prognosis? @ -[No] Drug Therapy requiring intensive monitoring for toxicity (Heparin, Nitro, Insulin, Cardizem)? @ -[No] Were any procedures done? @ -[No] Diagnosis/symptom? @ -[Chest pain Acute, or Chronic, or Acute on Chronic? @ -[Acute Uncomplicated (without systemic symptoms) or Complicated (systemic symptoms)? @ -Uncomplicated Side effects of treatment? @ -[No] Exacerbation, Progression, or Severe Exacerbation? @ -[No] Poses a threat to life or bodily function? How? (Chest pain, [place], MS, pneumonia, PE, COPD, DKA, ARF, appy, cholecystitis, CVA, Diverticulitis, Homicidal, Suicidal, threat to staff... and all critical care pts) @ -[No] All treatments are based on ideal body weight as in ED triage Disposition Clinical Impression: Chest pain Disposition: ADMITTED IP TO THIS HOSP Condition: Good Is patient prescribed a controlled substance at d/c from ED?: No
[2024-07-11] MEDS: hydrALAZINE HCL 50 MG TAB PO SCH (08:51)
[2024-07-11] MEDS: VALSARTAN 160 MG TAB PO SCH (08:51)
[2024-07-11] MEDS: atenoloL 50 MG TAB PO SCH (08:51)
[2024-07-11] MEDS: amLODIPine 10 MG TAB PO SCH (08:51)
[2024-07-11] MEDS: ASPIRIN 81 MG PO SCH (08:51)
[2024-07-11] MEDS ORDERED: lisinopriL 20 MG TAB PO SCH (09:00)
[2024-07-11] MEDS ORDERED: amLODIPine 5 MG TAB PO SCH (09:00)
[2024-07-11] MEDS ORDERED: SPIRONOLACTONE 25 MG TAB PO SCH (09:00)
[2024-07-11] MEDS ORDERED: ALPRAZolam 0.5 MG TAB PO PRN (09:40)
[2024-07-11] MEDS ORDERED: ALPRAZolam 0.25 MG TAB PO PRN (09:40)
[2024-07-11] MEDS: HEPARIN SODIUM 1,000 UN/ML (10ML VL) IV ONE (10:27)
[2024-07-11] MEDS: HEPARIN SOD,PORK IN 0.45% NACL 25,000 UNIT in 0.45% NACL 1 250ML.BAG IV SCH (10:28)
[2024-07-11 10:31] LABS: Basophils # (A) 0.01 10*3/uL (0.00-0.10); Basophils % (A) 0.2 %; Eosinophils % (A) 1.5 %; HCT 36.2 % (39.6-50.0); HGB 11.7 g/dL (13.0-17.0); Lymphocytes # (A) 1.68 10*3/uL (0.90-5.00); Lymphocytes % (A) 25.5 %; MCH 31.2 pg (27.0-32.0); MCHC 32.3 g/dL (32.0-37.0); MCV 96.5 fL (80.0-97.0); Monocytes # (A) 0.57 10*3/uL (0.20-1.00); Monocytes % (A) 8.6 %; Neutrophils # (A) 4.23 10*3/uL (1.80-7.70); Platelet Count 202 10*3/uL (140-440); RBC 3.75 10*6/uL (4.40-5.60)
[2024-07-11] MEDS: TRIAMTERENE-HCTZ 37.5-25MG 1 EACH CAP PO SCH (10:34)
[2024-07-11] MEDS: FUROSEMIDE 20 MG TAB PO SCH (10:34)
[2024-07-11 10:58] LABS: INR 0.9 (<1.2); Partial Thromboplastin Time 27.1 sec (22.0-30.0)
--- NOTE | 2024-07-11 11:50 | P.CRDCN ---
History of Present Illness History of present illness: HISTORY OF PRESENT ILLNESS: This is a 69-year-old male with a past medical history significant for coronary artery disease, hypertension, hyperlipidemia, paroxysmal atrial fibrillation wi th previous ablation, diabetes, and obesity. Patient follows in the office with Dr. Farley. We have been asked to see the patient in consultation for chest pain. Patient examined at the bedside. Patient states he presented to the emergency room yesterday with a chief complaint of elevated blood pressure. He states his blood pressure was running in the 190s at home. Blood pressure on admission to the hospital was in the 140s. Patient denies having any chest pain or pressure. He reports mild shortness of breath. He does report feeling lightheaded at home. No episodes of syncope. Blood pressure this morning 131/63. DIAGNOSTICS: - EKG reveals sinus mechanism with ST depression in V4V6. Repeat EKG reveals sinus mechanism with resolution of ST depression - Chest xray bilateral airspace opacities may represent pulmonary edema and/or atypical infection - Laboratory data: WBC 6.60. Hemoglobin 11.7. Platelet count 202. Sodium 136. Potassium 3.8. BUN 30. Creatinine 1.12. Troponin 0.087. 0.068. 0.064. - Current home cardiac medications include valsartan 320 mg daily, Lasix 20 mg every 2 days, hydralazine 50 mg 3 times daily, hydrochlorothiazide 25 mg daily, amlodipine 10 mg at night, Lipitor 40 mg daily, Eliquis 5 mg twice a day. - Most recent echocardiogram obtained in May 2024 revealed normal left ventricular size and systolic function, moderate mitral and mild tricuspid regurgitation REVIEW OF SYSTEMS: At the time of my exam: CONSTITUTIONAL: Denies fever or chills. HEENT: Denies blurred vision, vision changes, or eye pain. Denies hemoptysis CARDIOVASCULAR: Denies chest pain. Denies orthopnea. Denies PND. Denies palpitations RESPIRATORY: Denies shortness of breath. GASTROINTESTINAL: Denies abdominal pain. Denies nausea or vomiting. HEMATOLOGIC: Denies bleeding disorders. GENITOURINARY: Denies any blood in urine. SKIN: Denies pruitis. Denies rash. PHYSICAL EXAM: VITAL SIGNS: Reviewed. GENERAL: Well-developed in no acute distress. HEENT: Head is normocephalic. Pupils are equal, round. Sclerae anicteric. Mucous membranes of the mouth are moist. Neck supple. No JVD or thyromegaly LUNGS: Respirations even and unlabored. Lungs essentially clear to auscultation bilaterally. HEART: Regular rate and rhythm. S1 and S2 heard. ABDOMEN: Soft. Nondistended. Nontender. EXTREMITIES: Normal range of motion. No clubbing or cyanosis. Peripheral pulses intact. No lower extremity edema NEUROLOGIC: Awake and alert. Oriented x 3. ASSESSMENT: Uncontrolled blood pressure at home, per patient Non-STEMI Sinus bradycardia in the 40s Coronary artery disease with known KNOCKOUT MAN of RCA, per cardiac catheterization performed previously at [place] Hypertension Hyperlipidemia Paroxysmal atrial fibrillation History of A-fib ablation Diabetes Obesity: BMI 33.0 PLAN: No need to repeat echocardiogram as this was performed in May 2024 Resume home cardiac medications Decrease atenolol to 25 mg daily secondary to bradycardia Change hydrochlorothiazide to Dyazide Hold Eliquis. Begin IV heparin N.p.o. at midnight Patient to undergo cardiac catheterization tomorrow with Dr. Farley Further recommendations pending patient course Nurse practitioner note has been reviewed by physician. Signing provider agrees with the documented findings, assessment, and plan of care documented by UNDERTAKER ASSISTANT as a scribe. Past Medical History Past Medical History: Atrial Fibrillation, COPD, Diabetes Mellitus, Deep Vein Thrombosis (DVT), Hyperlipidemia, Hypertension, Osteoarthritis (OA), Prostate Disorder, Pulmonary Embolus (PE), Renal Disease, Skin Disorder Additional Past Medical History / Comment(s): "small heart attacks", gout, kidney stones. back pain. kidney function 40%, hypokalemia; cardioversion 08/02/22 History of Any Multi-Drug Resistant Organisms: None Reported Past Surgical History: Cholecystectomy, Heart Catheterization, Orthopedic Surgery Additional Past Surgical History / Comment(s): Cholecystectomy with hernia repair , Bilateral cataract surgery, left knee arthroscopy, ORIF left knee open reduction and internal fixation after injury, pain procedures, cardiac ablation Past Anesthesia/Blood Transfusion Reactions: No Reported Reaction Past Psychological History: Anxiety Smoking Status: Former smoker Past Alcohol Use History: None Reported Past Drug Use History: None Reported - Past Family History Father History Unknown: Yes Family Medical History: Cancer Additional Family Medical History / Comment(s): . Mother History Unknown: Yes Family Medical History: Cancer, Deep Vein Thrombosis (DVT) Additional Family Medical History / Comment(s): . Brother(s) Family Medical History: No Reported History Additional Family Medical History / Comment(s): from overdose Sister(s) Family Medical History: No Reported History Additional Family Medical History / Comment(s): Patient has 1 sister from drug overdose after chronic pain syndrome from low back pain. Medications and Allergies Home Medications Medication Instructions Recorded Confirmed Type allopurinoL [Zyloprim] 100 mg PO DAILY 08/08/14 07/11/24 History Montelukast [Singulair] 10 mg PO HS 10/21/17 07/11/24 History Apixaban [Eliquis] 5 mg PO BID 07/15/20 07/11/24 History Baclofen 10 mg PO TID 07/25/22 07/11/24 History Tamsulosin HCl [Flomax] 0.4 mg PO DAILY 07/25/22 07/11/24 History ALPRAZolam [Xanax] 0.5 mg PO BID PRN 11/01/22 07/11/24 History Furosemide [Lasix] 20 mg PO Q2D 11/01/22 07/11/24 History Potassium Chloride [Potassium 20 meq PO Q2D 11/01/22 07/11/24 History Chloride ER (K-Dur GEQ)] Sertraline [Zoloft] 100 mg PO DAILY 11/01/22 07/11/24 History Atorvastatin [Lipitor] 40 mg PO DAILY 12/26/22 07/11/24 History Glimepiride [Amaryl] 4 mg PO BID 12/26/22 07/11/24 History oxyCODONE-APAP 10-325MG [Percocet 1 tab PO TID 02/10/24 07/11/24 History 10-325 mg] Gabapentin [Neurontin] 300 mg PO TID 05/28/24 07/11/24 History Insulin Glargine,Hum.rec.anlog 30 units SQ HS 05/28/24 07/11/24 History [Lantus Solostar Pen] Valsartan [Diovan] 320 mg PO DAILY 05/28/24 07/11/24 History amLODIPine [Norvasc] 10 mg PO HS 05/28/24 07/11/24 History tadalafiL 10 mg PO DAILY PRN 05/28/24 07/11/24 History traZODone HCL [Desyrel] 100 mg PO HS 05/28/24 07/11/24 History hydroCHLOROthiazide [Hydrodiuril] 25 mg PO DAILY #30 tab 05/31/24 07/11/24 Rx Doxycycline Monohydrate 100 mg PO DAILY 07/11/24 07/11/24 History INSULIN ASPART (NovoLOG) [NovoLOG See Protocol SQ TID-W/MEALS PRN 07/11/24 07/11/24 History (formulary)] MDD 12 units Meclizine [Antivert] 12.5 mg PO TID PRN 07/11/24 07/11/24 History Nitroglycerin Sl Tabs [Nitrostat] 0.4 mg SUBLINGUAL Q5M PRN 07/11/24 07/11/24 History hydrALAZINE HCL [Apresoline] 50 mg PO TID 07/11/24 07/11/24 History Allergies Allergy/AdvReac Type Severity Reaction Status Date / Time No Known Allergies Allergy Verified 07/11/24 10:24 Physical Exam Vitals: Vital Signs Temp Pulse Pulse Resp BP BP Pulse Ox 07/11/24 06:55 98.0 F 66 16 131/63 97 07/11/24 06:38 73 18 118/48 95 07/11/24 06:08 74 18 174/84 99 07/11/24 05:00 43 L 18 96 07/11/24 03:51 56 L 15 124/49 96 07/11/24 01:41 97.6 F 72 18 148/71 97 Intake and Output 07/10/24 07/11/24 07/11/24 22:59 06:59 14:59 Other: Weight 104.326 kg Results 07/11/24 10:11 07/11/24 01:58 Cardiac Enzymes 07/11/24 07/11/24 07/11/24 Range/Units 01:58 01:58 08:03 AST 35 (17-59) U/L Troponin I 0.087 H* 0.068 H* (0.000-0.034) ng/mL 07/11/24 Range/Units 10:11 AST (17-59) U/L Troponin I 0.064 H* (0.000-0.034) ng/mL Coagulation 07/11/24 Range/Units 10:11 PT 10.0 (10.0-12.5) sec APTT 27.1 (22.0-30.0) sec CBC 07/11/24 07/11/24 Range/Units 01:58 10:11 WBC 7.86 6.60 (4.50-10.00) 10*3/uL RBC 3.87 L 3.75 L (4.40-5.60) 10*6/uL Hgb 12.5 L 11.7 L (13.0-17.0) g/dL Hct 36.7 L 36.2 L (39.6-50.0) % Plt Count 243 202 (140-440) 10*3/uL Comprehensive Metabolic Panel 07/11/24 Range/Units 01:58 Sodium 136 L (137-145) mmol/L Potassium 3.8 (3.5-5.1) mmol/L Chloride 103 (98-107) mmol/L Carbon Dioxide 25 (22-30) mmol/L BUN 30 H (9-20) mg/dL Creatinine 1.12 (0.66-1.25) mg/dL Glucose 149 H (74-99) mg/dL Calcium 9.4 (8.4-10.2) mg/dL AST 35 (17-59) U/L ALT 20 (4-49) U/L Alkaline Phosphatase 112 (38-126) U/L Total Protein 6.5 (6.3-8.2) g/dL Albumin 3.9 (3.5-5.0) g/dL Current Medications Generic Name Dose Route Start Last Admin Trade Name Freq PRN Reason Stop Dose Admin Alprazolam 0.25 mg 07/11/24 09:40 Alprazolam 0.25 Mg Tab PO Q6HR PRN Mild Anxiety Alprazolam 0.5 mg 07/11/24 09:40 Alprazolam 0.5 Mg Tab PO Q6HR PRN Moderate Anxiety Amlodipine Besylate 10 mg 07/11/24 09:00 07/11/24 08:51 Amlodipine 10 Mg Tab PO 10 mg DAILY JOSE Administration Aspirin 81 mg 07/11/24 09:00 07/11/24 08:51 Aspirin 81 Mg PO 81 mg DAILY JOSE Administration Aspirin 325 mg 07/12/24 05:00 Aspirin 325 Mg Tab PO 07/12/24 05:01 ONCE ONE Atenolol 25 mg 07/12/24 09:00 Atenolol 25 Mg Tab PO DAILY JOSE Atorvastatin Calcium 40 mg 07/11/24 21:00 Atorvastatin 40 Mg Tab PO HS JOSE Atorvastatin Calcium 80 mg 07/12/24 05:00 Atorvastatin 80 Mg Tab PO 07/12/24 05:01 ONCE ONE Furosemide 20 mg 07/11/24 09:00 07/11/24 10:34 Furosemide 20 Mg Tab PO 20 mg DAILY OJSE Administration Heparin Sodium (Porcine) 0 unit 07/11/24 09:27 Heparin Sodium 1,000 Un/Ml (10ml Vl) IV PER PROTOCOL PRN Low PTT Protocol Hydralazine HCl 50 mg 07/11/24 09:00 07/11/24 08:51 Hydralazine Hcl 50 Mg Tab PO 50 mg TID JOSE Administration Heparin Sodium/Sodium Chloride 250 mls @ 10 mls/hr 07/11/24 09:30 07/11/24 10:28 25,000 unit/ Sodium Chloride IV 9.5853 units/kg/hr .Q24H JOSE 10 mls/hr Administration Protocol 9.5853 UNITS/KG/HR Heparin Sodium (Porcine) 10, 1,001 mls @ 999 mls/hr 07/12/24 07:00 000 unit/ Sodium Chloride IRRIGATION 07/12/24 23:00 ONCE PRN INTRA-OP Heparin Sodium (Porcine) 2,500 250.5 mls @ 250 mls/hr 07/12/24 07:00 unit/ Sodium Chloride IRRIGATION 07/12/24 23:00 ONCE PRN INTRA-OP Sodium Chloride 1,000 ml/ IV 1,000 mls @ 104.326 mls/hr 07/12/24 03:00 Solution IV .Q9H36M JOSE 1 ML/KG/HR Nitroglycerin 0.4 mg 07/11/24 06:10 Nitroglycerin Sl Tabs 0.4 Mg Tab SUBLINGUAL Q5M PRN Chest Pain Nitroglycerin 0.4 mg 07/11/24 09:40 Nitroglycerin Sl Tabs 0.4 Mg Tab SUBLINGUAL Q5M PRN Chest Pain Triamterene/Hydrochlorothiazide 1 each 07/11/24 09:00 07/11/24 10:34 Triamterene-Hctz 37.5-25mg 1 Each Cap PO 1 each DAILY JOSE Administration Valsartan 320 mg 07/11/24 09:00 07/11/24 08:51 Valsartan 160 Mg Tab PO 320 mg DAILY JOSE Administration Intake and Output 07/10/24 07/11/24 07/11/24 22:59 06:59 14:59 Other: Weight 104.326 kg 07/11/24 10:11 07/11/24 01:58
[2024-07-11] MEDS ORDERED: MECLIZINE 25 MG TAB PO PRN (12:56)
[2024-07-11 13:02] LABS: Glucose,Whole Blood 141 mg/dL (70-110)
[2024-07-11] MEDS: GABAPENTIN 300 MG CAP PO SCH (14:42)
[2024-07-11] MEDS: oxyCODONE-APAP 10-325MG 1 EACH TAB PO PRN (14:42)
[2024-07-11] MEDS: BACLOFEN 10 MG TAB PO SCH (14:42)
[2024-07-11 17:18] LABS: Glucose,Whole Blood 104 mg/dL (70-110)
[2024-07-11] MEDS: INSULIN LISPRO (HumaLOG) 100 UNIT/ML 10 mL VL SQ SCH (17:22)
[2024-07-11] MEDS ORDERED: RIVAROXABAN 20 MG TAB PO SCH (17:30)
[2024-07-11] MEDS: HEPARIN SODIUM 1,000 UN/ML (10ML VL) IV PRN (17:35)
[2024-07-11] MEDS: IBUPROFEN 600 MG TAB PO PRN (18:31)
--- NOTE | 2024-07-11 18:37 | P.HPIM ---
History of Present Illness This is a pleasant 69 years old male with past medical history of multiple medical problems Presents because of dizziness. Patient states it is of 1 day duration happened in the middle of the night felt like he is going to pass out. He never passed out. When he is lying down he feels better. He denies significant chest pain currently no dyspnea. No other specific GI/ symptom He is afebrile and vital stable Hemoglobin 11.7, rest of labs unremarkable. Troponin mildly elevated 0.08 and 0.06. EKG showing A-fib at a rate of 71 and chest x-ray showing bilateral airspace opacities suspicious for pulmonary edema versus atypical infection. Procalcitonin is low at 0.2 and proBNP is also not elevated at 602, most likely patient has pulmonary atelectasis. Patient continued on Eliquis for history of PE. Patient evaluated by cardiology team and plan for cardiac cath tomorrow. Patient confirms she was taking Eliquis at home and he has his own prescription. Review of Systems Review of systems CONSTITUTIONAL: No fever, no malaise, no fatigue. HEENT: No recent visual problems or hearing problems. Denied any sore throat. CARDIOVASCULAR: No orthopnea, PND, no palpitations, no syncope. PULMONARY: No shortness of breath, no cough, no hemoptysis. GASTROINTESTINAL: No diarrhea, no nausea, no vomiting, no abdominal pain. Normoactive bowel sounds. NEUROLOGICAL: No headaches, no weakness, no numbness. HEMATOLOGICAL: Denies any bleeding or petechiae. GENITOURINARY: Denies any burning micturition, frequency, or urgency. MUSCULOSKELETAL/RHEUMATOLOGICAL: Denies any joint pain, swelling, or any muscle pain. ENDOCRINE: Denies any polyuria or polydipsia. Past Medical History Past Medical History: Atrial Fibrillation, COPD, Diabetes Mellitus, Deep Vein Thrombosis (DVT), Hyperlipidemia, Hypertension, Osteoarthritis (OA), Prostate Disorder, Pulmonary Embolus (PE), Renal Disease, Skin Disorder Additional Past Medical History / Comment(s): "small heart attacks", gout, kidney stones. back pain. kidney function 40%, hypokalemia; cardioversion 08/02/22 History of Any Multi-Drug Resistant Organisms: None Reported Past Surgical History: Cholecystectomy, Heart Catheterization, Orthopedic Surgery Additional Past Surgical History / Comment(s): Cholecystectomy with hernia repair , Bilateral cataract surgery, left knee arthroscopy, ORIF left knee open reduction and internal fixation after injury, pain procedures, cardiac ablation Past Anesthesia/Blood Transfusion Reactions: No Reported Reaction Past Psychological History: Anxiety Smoking Status: Former smoker Past Alcohol Use History: None Reported Past Drug Use History: None Reported - Past Family History Father History Unknown: Yes Family Medical History: Cancer Additional Family Medical History / Comment(s): . Mother History Unknown: Yes Family Medical History: Cancer, Deep Vein Thrombosis (DVT) Additional Family Medical History / Comment(s): . Brother(s) Family Medical History: No Reported History Additional Family Medical History / Comment(s): from overdose Sister(s) Family Medical History: No Reported History Additional Family Medical History / Comment(s): Patient has 1 sister from drug overdose after chronic pain syndrome from low back pain. Medications and Allergies Home Medications Medication Instructions Recorded Confirmed Type RX: allopurinoL [Zyloprim] 100 mg PO DAILY 08/08/14 07/11/24 History RX: Montelukast [Singulair] 10 mg PO HS 10/21/17 07/11/24 History RX: Apixaban [Eliquis] 5 mg PO BID 07/15/20 07/11/24 History RX: Baclofen 10 mg PO TID 07/25/22 07/11/24 History RX: Tamsulosin HCl [Flomax] 0.4 mg PO DAILY 07/25/22 07/11/24 History RX: ALPRAZolam [Xanax] 0.5 mg PO BID PRN 11/01/22 07/11/24 History RX: Furosemide [Lasix] 20 mg PO Q2D 11/01/22 07/11/24 History RX: Potassium Chloride [Potassium 20 meq PO Q2D 11/01/22 07/11/24 History Chloride ER (K-Dur GEQ)] RX: Sertraline [Zoloft] 100 mg PO DAILY 11/01/22 07/11/24 History RX: Atorvastatin [Lipitor] 40 mg PO DAILY 12/26/22 07/11/24 History RX: Glimepiride [Amaryl] 4 mg PO BID 12/26/22 07/11/24 History RX: oxyCODONE-APAP 10-325MG 1 tab PO TID 02/10/24 07/11/24 History [Percocet 10-325 mg] RX: Gabapentin [Neurontin] 300 mg PO TID 05/28/24 07/11/24 History RX: Insulin Glargine,Hum.rec.anlog 30 units SQ HS 05/28/24 07/11/24 History [Lantus Solostar Pen] RX: Valsartan [Diovan] 320 mg PO DAILY 05/28/24 07/11/24 History RX: amLODIPine [Norvasc] 10 mg PO HS 05/28/24 07/11/24 History RX: tadalafiL 10 mg PO DAILY PRN 05/28/24 07/11/24 History RX: traZODone HCL [Desyrel] 100 mg PO HS 05/28/24 07/11/24 History RX: hydroCHLOROthiazide 25 mg PO DAILY #30 tab 05/31/24 07/11/24 Rx [Hydrodiuril] INSULIN ASPART (NovoLOG) [NovoLOG See Protocol SQ TID-W/MEALS PRN 07/11/24 07/11/24 History (formulary)] MDD 12 units Meclizine [Antivert] 12.5 mg PO TID PRN 07/11/24 07/11/24 History Nitroglycerin Sl Tabs [Nitrostat] 0.4 mg SUBLINGUAL Q5M PRN 07/11/24 07/11/24 Hi story RX: Doxycycline Monohydrate 100 mg PO DAILY 07/11/24 07/11/24 History hydrALAZINE HCL [Apresoline] 50 mg PO TID 07/11/24 07/11/24 History Allergies Allergy/AdvReac Type Severity Reaction Status Date / Time No Known Allergies Allergy Verified 07/11/24 10:24 Physical Exam Vitals: Vital Signs Temp Pulse Pulse Resp BP BP Pulse Ox 07/11/24 06:55 98.0 F 66 16 131/63 97 07/11/24 06:38 73 18 118/48 95 07/11/24 06:08 74 18 174/84 99 07/11/24 05:00 43 L 18 96 07/11/24 03:51 56 L 15 124/49 96 07/11/24 01:41 97.6 F 72 18 148/71 97 Intake and Output 07/10/24 07/11/24 07/11/24 22:59 06:59 14:59 Other: Weight 104.326 kg GENERAL: The patient is alert and oriented x3, not in any acute distress. Well developed, well nourished. HEENT: Pupils are round and equally reacting to light. EOMI. No scleral icterus. No conjunctival pallor. Normocephalic, atraumatic. No pharyngeal erythema. No thyromegaly. CARDIOVASCULAR: S1 and S2 present. No murmurs, rubs, or gallops. PULMONARY: Chest is clear to auscultation, no wheezing , no crackles. ABDOMEN: Soft, nontender, nondistended, normoactive bowel sounds. No palpable organomegaly. MUSCULOSKELETAL: No joint swelling or deformity. EXTREMITIES: No cyanosis, clubbing, or pedal edema. NEUROLOGICAL: Gross neurological examination did not reveal any focal deficits. SKIN: No rashes. no petechiae. Results CBC & Chem 7: 07/11/24 10:11 07/11/24 01:58 Labs: Abnormal Lab Results - Last 24 Hours (Table) 07/11/24 07/11/24 07/11/24 Range/Units 01:58 01:58 01:58 RBC 3.87 L (4.40-5.60) 10*6/uL Hgb 12.5 L (13.0-17.0) g/dL Hct 36.7 L (39.6-50.0) % MCH 32.3 H (27.0-32.0) pg MPV 9.3 L (9.5-12.2) fL Sodium 136 L (137-145) mmol/L BUN 30 H (9-20) mg/dL Glucose 149 H (74-99) mg/dL POC Glucose (mg/dL) (70-110) mg/dL Troponin I 0.087 H* (0.000-0.034) ng/mL 07/11/24 07/11/24 07/11/24 Range/Units 08:03 10:11 10:11 RBC 3.75 L (4.40-5.60) 10*6/uL Hgb 11.7 L (13.0-17.0) g/dL Hct 36.2 L (39.6-50.0) % MCH (27.0-32.0) pg MPV 9.0 L (9.5-12.2) fL Sodium (137-145) mmol/L BUN (9-20) mg/dL Glucose (74-99) mg/dL POC Glucose (mg/dL) (70-110) mg/dL Troponin I 0.068 H* 0.064 H* (0.000-0.034) ng/mL 07/11/24 Range/Units 13:01 RBC (4.40-5.60) 10*6/uL Hgb (13.0-17.0) g/dL Hct (39.6-50.0) % MCH (27.0-32.0) pg MPV (9.5-12.2) fL Sodium (137-145) mmol/L BUN (9-20) mg/dL Glucose (74-99) mg/dL POC Glucose (mg/dL) 141 H (70-110) mg/dL Troponin I (0.000-0.034) ng/mL Thrombosis Risk Factor Assmnt - Choose All That Apply Each Factor Represents 1 point: Abnormal pulmonary function (COPD) Each Risk Factor Represents 2 Points: Age 61-74 years Thrombosis Risk Factor Assessment Total Risk Factor Score: 3 Thrombosis Risk Factor Assessment Level: Moderate Risk Assessment and Plan Assessment: Dizziness suspicious for coronary artery disease Atypical chest pain Bilateral airspace opacities suspicious for atelectasis History of PE on Eliquis. Obesity with BMI of 33. Mild chronic anemia Chronic A-fib on Eliquis Plan: Evaluated by straight knife machine cutter Possible cardiac cath tomorrow On Eliquis and aspirin 81 mg, switch to heparin drip prior to cardiac cath Patient likely has pneumonia or pulmonary edema most likely is atelectasis no need for antibiotic for now. Labs and medication were reviewed.. Continue same treatment. Continue with symptomatic treatment. Resume home medication. Monitor labs and vitals. DVT and GI prophylaxis. Further recommendations as per clinical course of the patient DVT prophylaxis: Eliquis, switch to IV heparin drip prior to cardiac cath GI Prophylaxis: Pepcid Prognosis is guarded
[2024-07-11 20:04] LABS: Glucose,Whole Blood 166 mg/dL (70-110)
[2024-07-11] MEDS: traZODone HCL 100 MG TAB PO SCH (20:33)
[2024-07-11] MEDS: MONTELUKAST 10 MG TAB PO SCH (20:33)
[2024-07-11] MEDS: ATORVASTATIN 40 MG TAB PO SCH (20:34)
[2024-07-11] MEDS ORDERED: APIXABAN 5 MG TAB PO SCH (21:00)
[2024-07-12 00:30] LABS: Basophils # (A) 0.01 10*3/uL (0.00-0.10); Basophils % (A) 0.1 %; Eosinophils # (A) 0.08 10*3/uL (0.04-0.35); Eosinophils % (A) 1.2 %; HCT 34.9 % (39.6-50.0); HGB 11.5 g/dL (13.0-17.0); Lymphocytes # (A) 2.84 10*3/uL (0.90-5.00); Lymphocytes % (A) 41.8 %; MCH 31.8 pg (27.0-32.0); MCV 96.4 fL (80.0-97.0); Mean Platelet Volume 9.8 fL (9.5-12.2); Monocytes # (A) 0.62 10*3/uL (0.20-1.00); Monocytes % (A) 9.1 %; Neutrophils # (A) 3.23 10*3/uL (1.80-7.70); Neutrophils % (A) 47.5 %; Platelet Count 213 10*3/uL (140-440); RBC 3.62 10*6/uL (4.40-5.60); RDW 14.1 % (11.5-14.5)
[2024-07-12 00:39] LABS: INR 0.9 (<1.2); Prothrombin Time 10.5 sec (10.0-12.5)
[2024-07-12] MEDS: SODIUM CHLORIDE 0.9% 1,000 ML in EMPTY BAG 1 BAG IV SCH (03:53)
[2024-07-12] MEDS: ASPIRIN 325 MG TAB PO ONE (05:09)
[2024-07-12] MEDS: ATORVASTATIN 80 MG TAB PO ONE (05:09)
[2024-07-12 06:04] LABS: Glucose,Whole Blood 107 mg/dL (70-110)
[2024-07-12] MEDS ORDERED: HEPARIN SODIUM,PORCINE (1 ML) 2,500 UNIT in SODIUM CHLORIDE 0.9% 250 ML IRRIGATION PRN (07:00)
[2024-07-12] MEDS ORDERED: HEPARIN SODIUM,PORCINE 10,000 UNIT in SODIUM CHLORIDE 0.9% 1,000 ML IRRIGATION PRN (07:00)
--- NOTE | 2024-07-12 07:52 | P.PN ---
Subjective HISTORY OF PRESENT ILLNESS: This is a 69-year-old male with a past medical history significant for coronary artery disease, hypertension, hyperlipidemia, paroxysmal atrial fibrillation with previous ablation, diabetes, and obesity. Patient follows in the office with Dr. Farley. We have been asked to see the patient in consultation for chest pain. Patient examined at the bedside. Patient states he presented to the emergency room yesterday with a chief complaint of elevated blood pressure. He states his blood pressure was running in the 190s at home. Blood pressure on admission to the hospital was in the 140s. Patient denies having any chest pain or pressure. He reports mild shortness of breath. He does report feeling lightheaded at home. No episodes of syncope. Blood pressure this morning 131/63. DIAGNOSTICS: - EKG reveals sinus mechanism with ST depression in V4V6. Repeat EKG reveals sinus mechanism with resolution of ST depression - Chest xray bilateral airspace opacities may represent pulmonary edema and/or atypical infection - Laboratory data: WBC 6.60. Hemoglobin 11.7. Platelet count 202. Sodium 136. Potassium 3.8. BUN 30. Creatinine 1.12. Troponin 0.087. 0.068. 0.064. - Current home cardiac medications include valsartan 320 mg daily, Lasix 20 mg every 2 days, hydralazine 50 mg 3 times daily, hydrochlorothiazide 25 mg daily, amlodipine 10 mg at night, Lipitor 40 mg daily, Eliquis 5 mg twice a day. - Most recent echocardiogram obtained in May 2024 revealed normal left ventricular size and systolic function, moderate mitral and mild tricuspid regurgitation 07/12/2024 Patient examined this morning at bedside. Patient currently denies any chest pain or pressure. He denies any shortness of breath. Vital signs are stable. Telemetry reveals sinus mechanism with a heart rate in the 40s50s. His atenolol was decreased yesterday. PHYSICAL EXAM: VITAL SIGNS: Reviewed. GENERAL: Well-developed in no acute distress. HEENT: Head is normocephalic. Pupils are equal, round. Sclerae anicteric. Mucous membranes of the mouth are moist. Neck supple. No JVD or thyromegaly LUNGS: Respirations even and unlabored. Lungs essentially clear to auscultation bilaterally. HEART: Regular rate and rhythm. S1 and S2 heard. ABDOMEN: Soft. Nondistended. Nontender. EXTREMITIES: Normal range of motion. No clubbing or cyanosis. Peripheral pulses intact. No lower extremity edema NEUROLOGIC: Awake and alert. Oriented x 3. ASSESSMENT: Uncontrolled blood pressure at home, per patient Non-STEMI Sinus bradycardia in the 40s Coronary artery disease with known PRODUCT DEVELOPER of RCA, per cardiac catheterization performed previously at [place] Hypertension Hyperlipidemia Paroxysmal atrial fibrillation History of A-fib ablation Diabetes Obesity: BMI 33.0 PLAN: No need to repeat echocardiogram as this was performed in May 2024 Continue to hold Eliquis. Continue IV heparin. Resume Eliquis post procedure Patient to undergo cardiac catheterization today with Dr. Farley Further recommendations pending patient course Nurse practitioner note has been reviewed by physician. Signing provider agrees with the documented findings, assessment, and plan of care documented by SNOW REMOVER as a scribe. Objective - Vital Signs Vital signs: Vital Signs Temp 97.6 F 07/12/24 07:00 Pulse 52 L 07/12/24 07:00 Resp 14 07/12/24 07:00 BP 111/58 07/12/24 07:00 Pulse Ox 98 07/12/24 07:00 FiO2 Intake & Output 07/11/24 07/12/24 07/12/24 18:59 06:59 18:59 Intake Total 550.833 Balance 550.833 Intake: Intake, IV Titration 70.833 Amount Heparin Sod,Pork in 0.45% 70.833 NaCl 25,000 unit In 0.45 % NaCl 1 250ml.bag @ 9. 5853 UNITS/KG/HR 10 mls/ hr IV .Q24H [facility] Rx#: [id number] Oral 480 Other: # Voids 3 3 - Labs CBC & Chem 7: 07/12/24 00:10 07/11/24 01:58 Labs: Abnormal Lab Results - Last 24 Hours (Table) 07/11/24 07/11/24 07/11/24 Range/Units 08:03 10:11 10:11 RBC 3.75 L (4.40-5.60) 10*6/uL Hgb 11.7 L (13.0-17.0) g/dL Hct 36.2 L (39.6-50.0) % MPV 9.0 L (9.5-12.2) fL APTT (22.0-30.0) sec POC Glucose (mg/dL) (70-110) mg/dL Troponin I 0.068 H* 0.064 H* (0.000-0.034) ng/mL 07/11/24 07/11/24 07/11/24 Range/Units 13:01 16:31 20:03 RBC (4.40-5.60) 10*6/uL Hgb (13.0-17.0) g/dL Hct (39.6-50.0) % MPV (9.5-12.2) fL APTT 38.4 H (22.0-30.0) sec POC Glucose (mg/dL) 141 H 166 H (70-110) mg/dL Troponin I (0.000-0.034) ng/mL 07/11/24 07/12/24 Range/Units 23:51 00:10 RBC 3.62 L (4.40-5.60) 10*6/uL Hgb 11.5 L (13.0-17.0) g/dL Hct 34.9 L (39.6-50.0) % MPV (9.5-12.2) fL APTT 47.3 H (22.0-30.0) sec POC Glucose (mg/dL) (70-110) mg/dL Troponin I (0.000-0.034) ng/mL
[2024-07-12] MEDS: allopurinoL 100 MG TAB PO SCH (08:52)
[2024-07-12] MEDS: TAMSULOSIN 0.4 MG CAP.ER.24H PO SCH (08:52)
[2024-07-12] MEDS: atenoloL 25 MG TAB PO SCH (08:52)
[2024-07-12] MEDS: SERTRALINE 100 MG TAB PO SCH (08:53)
[2024-07-12] MEDS ORDERED: ASPIRIN 325 MG TAB PO SCH (09:00)
[2024-07-12 09:26] LABS: Chol/HDL Ratio 3.93 Ratio; LDL Cholesterol,Calculated 43.2 mg/dL (0.0-131.0)
[2024-07-12] MEDS: VERAPAMIL 2.5 MG/ML 4 ML VIAL INTRAARTER ONE (11:20)
[2024-07-12] MEDS: MIDAZOLAM 2 MG/2 ML VIAL IVP ONE ×2 (11:20→11:30)
[2024-07-12] MEDS: LIDOCAINE 2% (PF) 20 MG/ML 5 ML VIAL SQ ONE (11:20)
[2024-07-12] MEDS: PHENYLEPHRINE-0.9% NACL SYG 1,000 MCG/10 ML SYRINGE IVP ONE (11:27)
[2024-07-12] MEDS: SODIUM CHLORIDE 0.9% 1,000 ML IV ONE (11:45)
[2024-07-12] MEDS ORDERED: RX INFO: IV CONTRAST WAS GIVEN 1 EACH MISC MISCELLANE PRN (11:45)
--- NOTE | 2024-07-12 11:45 | P.PCN ---
Date of Procedure: 07/12/24 Operative Findings: CARDIAC CATHETERIZATION PERFORMING PHYSICIAN: Phil Farley MD, RPVI PROCEDURE PERFORMED: 1. Selective right and left coronary angiogram 2. Left heart catheterization 3. Ultrasound-guided access of the right radial artery 4. An aortogram and nonselective renal artery angiogram INDICATION: Hypertension emergency Acute non-ST elevation myocardial infarction COMPLICATION: None APPROACH: Right radial artery LEVEL OF SEDATION: Moderate with a sedation length of 18 minutes PROCEDURE DESCRIPTION: After obtaining an informed consent, the patient was brought to cardiac laborer gold leaf. Local anesthesia was performed using lidocaine subcutaneously. The right radial artery was cannulated using Seldinger technique, under ultrasound guidance, the guidewire passed easily, following that we advanced a 5-[place]inean sheath dilator assembly, the wire and dilator were removed and sheath was flushed. Following that, 2 mg of verapamil along with 5000 unit heparin were given. Selective right and left coronary angiogram using a 5-[place]ine[place] JR4 and JL 3.5 catheters. Following that we did left heart catheterization using 5-[place]inean pigtail catheter. An abdominal aortogram and nonselective renal artery angiogram was performed using a pigtail catheter with a power injection and digital subtraction The procedure was completed there was no complication. SELECTIVE CORONARY ANGIOGRAM: The right coronary artery: Large caliber vessel and a dominant vessel and chronically occluded which is a known finding based on heart catheterization was performed in 2021. Left main: Is angiographically normal The left circumflex: Large caliber vessel nondominant vessel with intermediate lesion involving the proximal portion appears to be unchanged compared to before and appears to be in the range of 60% The left anterior descending artery: Large caliber vessel reaches the apex with no evidence of high-grade stenosis HEMODYNAMICS: The LVEDP was about 10 mmHg with no significant gradient across the aortic valve An abdominal aortogram and nonselective renal artery angiogram Was performed using in the AP projection and using a power injection. There is mild atherosclerosis was seen in the abdominal aorta with no evidence of aneurysmal formation but evidence of severe disease involving the right renal artery CONCLUSION: 1. Chronic total occlusion (EGG TRAYER) of the RCA which is a known finding based on heart catheterization was performed in 2021 2. Intermediate disease involving the proximal LCx appears to be in the range of 50 to 60% which is also the same as prior heart catheterization in 2021 3. Intermediate to severe disease involving the right renal artery by the ostium appeared to be in the range of 50 to 60% POSTPROCEDURE MANAGEMENT: Consider medical treatment at this point
[2024-07-12] MEDS: HEPARIN SODIUM,PORCINE 10,000 UNIT in SODIUM CHLORIDE 0.9% 1,000 ML IRRIGATION ONE (11:46)
[2024-07-12] MEDS: IOPAMIDOL-370 100ML BTL INTRATHECA ONE (11:46)
[2024-07-12] MEDS: HEPARIN SODIUM,PORCINE (1 ML) 2,500 UNIT in SODIUM CHLORIDE 0.9% 250 ML IRRIGATION ONE (11:46)
[2024-07-12 12:02] LABS: Glucose,Whole Blood 93 mg/dL (70-110)
[2024-07-12] MEDS: SODIUM CHLORIDE 0.9% 1,000 ML IV SCH (15:06)
[2024-07-12] MEDS: APIXABAN 5 MG TAB PO SCH (20:57)
[2024-07-13 08:02] VITALS: BP 122/61; PULSE 48; RESP 17; TEMP 98.1
[2024-07-13] MEDS ORDERED: atenoloL 25 MG TAB PO SCH (09:00)
--- NOTE | 2024-07-13 10:06 | P.PN ---
Subjective Progress Note Date: 07/13/24 HISTORY OF PRESENT ILLNESS: This is a 69-year-old male with a past medical history significant for coronary artery disease, hypertension, hyperlipidemia, paroxysmal atrial fibrillation with previous ablation, diabetes, and obesity. Patient follows in the office with Dr. Farley. We have been asked to see the patient in consultation for chest pain. Patient examined at the bedside. Patient states he presented to the emergency room yesterday with a chief complaint of elevated blood pressure. He states his blood pressure was running in the 190s at home. Blood pressure on admission to the hospital was in the 140s. Patient denies having any chest pain or pressure. He reports mild shortness of breath. He does report feeling lightheaded at home. No episodes of syncope. Blood pressure this morning 131/63. DIAGNOSTICS: - EKG reveals sinus mechanism with ST depression in V4V6. Repeat EKG reveals sinus mechanism with resolution of ST depression - Chest xray bilateral airspace opacities may represent pulmonary edema and/or atypical infection - Laboratory data: WBC 6.60. Hemoglobin 11.7. Platelet count 202. Sodium 136. Potassium 3.8. BUN 30. Creatinine 1.12. Troponin 0.087. 0.068. 0.064. - Current home cardiac medications include valsartan 320 mg daily, Lasix 20 mg every 2 days, hydralazine 50 mg 3 times daily, hydrochlorothiazide 25 mg daily, amlodipine 10 mg at night, Lipitor 40 mg daily, Eliquis 5 mg twice a day. - Most recent echocardiogram obtained in May 2024 revealed normal left ventricular size and systolic function, moderate mitral and mild tricuspid regurgitation 07/12/2024 Patient examined this morning at bedside. Patient currently denies any chest pain or pressure. He denies any shortness of breath. Vital signs are stable. Telemetry reveals sinus mechanism with a heart rate in the 40s50s. His atenolol was decreased yesterday. 07/13 Patient seen and examined. Yesterday, patient underwent cardiac catheterization which revealed chronic total occlusion of the RCA, intermediate disease involving the proximal left circumflex appears to be in the range of 50 to 60% which is also the same as prior cardiac catheterization in 2021, intermediate to severe disease involving the right renal artery by the ostium appears to be in the range of 50 to 60%. Patient has been resumed on Eliquis. Plan is for medical management. Patient denies any chest pain at this time. He does have concern for lightheadedness and dizziness. Patient has been on atenolol which will be discontinued. Heart rate is running in the 40s. Blood pressure 122/61, pulse ox 98% on room air. Triglycerides 265, cholesterol 129, LDL 43. PHYSICAL EXAM: VITAL SIGNS: Reviewed. GENERAL: Well-developed in no acute distress. HEENT: Head is normocephalic. Pupils are equal, round. Sclerae anicteric. Mucous membranes of the mouth are moist. Neck supple. No JVD or thyromegaly LUNGS: Respirations even and unlabored. Lungs essentially clear to auscultation bilaterally. HEART: Regular rate and rhythm. S1 and S2 heard. ABDOMEN: Soft. Nondistended. Nontender. EXTREMITIES: Normal range of motion. No clubbing or cyanosis. Peripheral pulses intact. No lower extremity edema NEUROLOGIC: Awake and alert. Oriented x 3. 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 Farley in 1 to 2 weeks. Nurse practitioner note has been reviewed by physician. Signing provider agrees with the documented findings, assessment, and plan of care documented by SALES AND BUSINESS DEVELOPMENT MANAGER as a scribe. Objective - Vital Signs Vital signs: Vital Signs Temp 98.1 F 07/13/24 07:10 Pulse 48 L 07/13/24 07:10 Resp 17 07/13/24 07:10 BP 122/61 07/13/24 07:10 Pulse Ox 98 07/13/24 07:10 FiO2 Intake & Output 07/12/24 07/13/24 07/13/24 18:59 06:59 18:59 Intake Total 579.167 Balance 579.167 Intake: IV 400 Intake, IV Titration 179.167 Amount Heparin Sod,Pork in 0.45% 179.167 NaCl 25,000 unit In 0.45 % NaCl 1 250ml.bag @ 9. 5853 UNITS/KG/HR 10 mls/ hr IV .Q24H [facility] Rx#: [id number] Other: Voiding Method Toilet # Voids 3 2 - Labs CBC & Chem 7: 07/12/24 00:10 07/11/24 01:58 Labs: Abnormal Lab Results - Last 24 Hours (Table) 07/12/24 Range/Units 00:10 Triglycerides 265.00 H (0.00-149.00) mg/dL VLDL Cholesterol, Calc 53.00 H (5.00-40.00) mg/dL HDL Cholesterol 32.80 L (40.00-60.00) mg/dL
--- NOTE | 2024-07-29 09:50 | P.PN ---
Subjective This is a pleasant 69 years old male with past medical history of multiple medical problems Presents because of dizziness. Patient states it is of 1 day duration happened in the middle of the night felt like he is going to pass out. He never passed out. When he is lying down he feels better. He denies significant chest pain currently no dyspnea. No other specific GI/ symptom He is afebrile and vital stable Hemoglobin 11.7, rest of labs unremarkable. Troponin mildly elevated 0.08 and 0.06. EKG showing A-fib at a rate of 71 and chest x-ray showing bilateral airspace opacities suspicious for pulmonary edema versus atypical infection. Pr ocalcitonin is low at 0.2 and proBNP is also not elevated at 602, most likely patient has pulmonary atelectasis. Patient continued on Eliquis for history of PE. Patient evaluated by cardiology team and plan for cardiac cath tomorrow. Patient confirms she was taking Eliquis at home and he has his own prescription. 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 Project Control Manager has recommended medical management Objective - Vital Signs Vital signs: Vital Signs Temp 97.4 F L 07/12/24 14:33 Pulse 47 L 07/12/24 14:33 Resp 15 07/12/24 14:33 BP 113/49 07/12/24 14:33 Pulse Ox 99 07/12/24 14:33 FiO2 Intake & Output 07/11/24 07/12/24 07/12/24 18:59 06:59 18:59 Intake Total 550.833 579.167 Balance 550.833 579.167 Intake: IV 400 Intake, IV Titration 70.833 179.167 Amount Heparin Sod,Pork in 0.45% 70.833 179.167 NaCl 25,000 unit In 0.45 % NaCl 1 250ml.bag @ 9. 5853 UNITS/KG/HR 10 mls/ hr IV .Q24H COUNTS INCLUDE 234 BEDS AT THE [facility] Rx#: [id number] Oral 480 Other: Voiding Method Toilet # Voids 3 3 3 - Exam GENERAL: The patient is alert and oriented x3, not in any acute distress. Well developed, well nourished. HEENT: Pupils are round and equally reacting to light. EOMI. No scleral icterus. No conjunctival pallor. Normocephalic, atraumatic. No pharyngeal erythema. No thyromegaly. CARDIOVASCULAR: S1 and S2 present. No murmurs, rubs, or gallops. PULMONARY: Chest is clear to auscultation, no wheezing , no crackles. ABDOMEN: Soft, nontender, nondistended, normoactive bowel sounds. No palpable organomegaly. MUSCULOSKELETAL: No joint swelling or deformity. EXTREMITIES: No cyanosis, clubbing, or pedal edema. NEUROLOGICAL: Gross neurological examination did not reveal any focal deficits. SKIN: No rashes. no petechiae. - Labs CBC & Chem 7: 07/12/24 00:10 07/11/24 01:58 Labs: Abnormal Lab Results - Last 24 Hours (Table) 07/11/24 07/11/24 07/11/24 Range/Units 16:31 20:03 23:51 RBC (4.40-5.60) 10*6/uL Hgb (13.0-17.0) g/dL Hct (39.6-50.0) % APTT 38.4 H 47.3 H (22.0-30.0) sec POC Glucose (mg/dL) 166 H (70-110) mg/dL Triglycerides (0.00-149.00) mg/dL VLDL Cholesterol, Calc (5.00-40.00) mg/dL HDL Cholesterol (40.00-60.00) mg/dL 07/12/24 07/12/24 Range/Units 00:10 00:10 RBC 3.62 L (4.40-5.60) 10*6/uL Hgb 11.5 L (13.0-17.0) g/dL Hct 34.9 L (39.6-50.0) % APTT (22.0-30.0) sec POC Glucose (mg/dL) (70-110) mg/dL Triglycerides 265.00 H (0.00-149.00) mg/dL VLDL Cholesterol, Calc 53.00 H (5.00-40.00) mg/dL HDL Cholesterol 32.80 L (40.00-60.00) mg/dL Assessment and Plan Assessment: Dizziness suspicious for coronary artery disease Atypical chest pain Bilateral airspace opacities suspicious for atelectasis History of PE on Eliquis. Obesity with BMI of 33. Mild chronic anemia Chronic A-fib on Eliquis Plan: Evaluated by voltage regulator assembler Status post cardiac cath: Showing chronic disease as above On Eliquis and aspirin 81 mg, switch to heparin drip prior to cardiac cath Patient likely has pneumonia or pulmonary edema most likely is atelectasis no need for antibiotic for now. Labs and medication were reviewed.. Continue same treatment. Continue with symptomatic treatment. Resume home medication. Monitor labs and vitals. DVT and GI prophylaxis. Further recommendations as per clinical course of the patient DVT prophylaxis: Eliquis, switch to IV heparin drip prior to cardiac cath GI Prophylaxis: Pepcid Prognosis is guarded Possible discharge in 24 hours
--- NOTE | 2024-07-29 09:54 | P.DS ---
Providers Date of admission: 07/11/24 06:12 Attending physician: Jr Mchugh MD Consults: 07/11/24 06:10 Consult Physician Routine Consulting Provider: Phil Farley Consult Reason/Comments: chest pain Do you want consulting provider notified?: Yes Primary care physician: Tanesha Ethan [facility] Course: Diagnoses: Dizziness suspicious for coronary artery disease Atypical chest pain, suspicious for non-STEMI, status postcardiac cath on 07/12 showing chronic disease as below Bilateral airspace opacities suspicious for atelectasis History of PE on [facility]. Obesity with BMI of 33. Mild chronic anemia Chronic A-fib on [facility] course: This is a pleasant 69 years old male with past medical history of multiple medical problems Presents because of dizziness. Patient states it is of 1 day duration happened in the middle of the night felt like he is going to pass out. He never passed out. When he is lying down he feels better. Troponin mildly elevated 0.08 and 0.06. 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 Daytime Babysitter has recommended medical management Patient symptoms improved denies any other new symptoms. No chest pain dizziness or dyspnea upon discharge. Patient was cleared for discharge by monitoring specialist Problems and management plan were discussed with the patient and he verbalized understanding and acceptance Patient was found stable and can be discharged home in guarded prognosis however he needs follow-up as an outpatient. Patient was instructed to follow up with PCP Dr. Benson within one week and patient agrees Patient was directed to follow-up with monitoring specialist Dr. Alexander in 2 weeks after discharge and he agrees Physical exam Gen: patient is a AAOx3, no distress CVS: S1-S2, RRR, no murmur Lungs: B/L CTA, no wheezing Abdomen: soft, no distention, no tenderness, positive bowel sounds Extremity: no leg edema or induration Time spent more than 35 minutes Patient Condition at Discharge: Good Plan - Discharge Summary Discharge Rx Participant: No New Discharge Prescriptions: New Aspirin 81 mg PO DAILY #30 tab Triamterene-Hctz 37.5-25Mg [Dyazide 37.5-25 Capsule] 1 each PO DAILY #30 cap Continue allopurinoL [Zyloprim] 100 mg PO DAILY Montelukast [Singulair] 10 mg PO HS Tamsulosin HCl [Flomax] 0.4 mg PO DAILY Baclofen 10 mg PO TID Sertraline [Zoloft] 100 mg PO DAILY Potassium Chloride [Potassium Chloride ER (K-Dur GEQ)] 20 meq PO Q2D Furosemide [Lasix] 20 mg PO Q2D ALPRAZolam [Xanax] 0.5 mg PO BID PRN PRN Reason: panic attack Atorvastatin [Lipitor] 40 mg PO DAILY Gabapentin [Neurontin] 300 mg PO TID traZODone HCL [Desyrel] 100 mg PO HS amLODIPine [Norvasc] 10 mg PO HS INSULIN ASPART (NovoLOG) [NovoLOG (formulary)] See Protocol SQ TID-W/MEALS PRN MDD 12 units PRN Reason: HIGH BLOOD SUGAR Apixaban [Eliquis] 5 mg PO BID Glimepiride [Amaryl] 4 mg PO BID oxyCODONE-APAP 10-325MG [Percocet 10-325 mg] 1 tab PO TID Insulin Glargine,Hum.rec.anlog [Lantus Solostar Pen] 30 units SQ HS Valsartan [Diovan] 320 mg PO DAILY hydrALAZINE HCL [Apresoline] 50 mg PO TID Meclizine [Antivert] 12.5 mg PO TID PRN PRN Reason: Vertigo Nitroglycerin Sl Tabs [Nitrostat] 0.4 mg SUBLINGUAL Q5M PRN PRN Reason: Chest Pain Discontinued Doxycycline Monohydrate 100 mg PO DAILY hydroCHLOROthiazide [Hydrodiuril] 25 mg PO DAILY #30 tab No Action tadalafiL 10 mg PO DAILY PRN PRN Reason: e.d. Discharge Medication List allopurinoL [Zyloprim] 100 mg PO DAILY 08/08/14 [History] Montelukast [Singulair] 10 mg PO HS 10/21/17 [History] Apixaban [Eliquis] 5 mg PO BID 07/15/20 [History] Baclofen 10 mg PO TID 07/25/22 [History] Tamsulosin HCl [Flomax] 0.4 mg PO DAILY 07/25/22 [History] ALPRAZolam [Xanax] 0.5 mg PO BID PRN 11/01/22 [History] Furosemide [Lasix] 20 mg PO Q2D 11/01/22 [History] Potassium Chloride [Potassium Chloride ER (K-Dur GEQ)] 20 meq PO Q2D 11/01/22 [History] Sertraline [Zoloft] 100 mg PO DAILY 11/01/22 [History] Atorvastatin [Lipitor] 40 mg PO DAILY 12/26/22 [History] Glimepiride [Amaryl] 4 mg PO BID 12/26/22 [History] oxyCODONE-APAP 10-325MG [Percocet 10-325 mg] 1 tab PO TID 02/10/24 [History] Gabapentin [Neurontin] 300 mg PO TID 05/28/24 [History] Insulin Glargine,Hum.rec.anlog [Lantus Solostar Pen] 30 units SQ HS 05/28/24 [History] Valsartan [Diovan] 320 mg PO DAILY 05/28/24 [History] amLODIPine [Norvasc] 10 mg PO HS 05/28/24 [History] tadalafiL 10 mg PO DAILY PRN 05/28/24 [History] traZODone HCL [Desyrel] 100 mg PO HS 05/28/24 [History] INSULIN ASPART (NovoLOG) [NovoLOG (formulary)] See Protocol SQ TID-W/MEALS PRN MDD 12 units 07/11/24 [History] Meclizine [Antivert] 12.5 mg PO TID PRN 07/11/24 [History] Nitroglycerin Sl Tabs [Nitrostat] 0.4 mg SUBLINGUAL Q5M PRN 07/11/24 [History] hydrALAZINE HCL [Apresoline] 50 mg PO TID 07/11/24 [History] Aspirin 81 mg PO DAILY #30 tab 07/13/24 [Rx] Triamterene-Hctz 37.5-25Mg [Dyazide 37.5-25 Capsule] 1 each PO DAILY #30 cap 07/13/24 [Rx] Follow up Appointment(s)/Referral(s): Tanesha Long MD [Primary Care Provider] - 1 Week Phil Farley MD [STAFF PHYSICIAN] - 1 Week ([facility] will call the patient to schedule appointment.) Patient Instructions/Handouts: After Radial Heart Catheterization (GEN) Activity/Diet/Wound Care/Special Instructions: Continue with cardiac diet Activity is restricted till you see your doctor Discharge Disposition: HOME SELF-CARE
== END 2024-07-13 14:30 | disposition home or self-care (01) | DRG 281 ==
LOC: EC 01:37 → 6NMEDSUR 06:12 → OBSVTOIN 06:12 → 6NMEDSUR 06:28
PROVIDERS: ADMIT Internal Medicine; ATTEND Internal Medicine
PROC: B4101ZZ Fluoroscopy of Abdominal Aorta using Low Osmolar Contrast (ICD-10-PCS; 2024-07-12)
PROC: 4A023N7 Measurement of Cardiac Sampling and Pressure, Left Heart, Percutaneous Approach (ICD-10-PCS; principal; 2024-07-12 10:38)
PROC: B2111ZZ Fluoroscopy of Multiple Coronary Arteries using Low Osmolar Contrast (ICD-10-PCS; 2024-07-12 10:38)
DX: I21.4 Non-ST elevation (NSTEMI) myocardial infarction (principal); I16.1 Hypertensive emergency; E11.9 Type 2 diabetes mellitus without complications; E66.9 Obesity, unspecified; E78.5 Hyperlipidemia, unspecified; D64.9 Anemia, unspecified; I48.20 Chronic atrial fibrillation, unspecified; I48.0 Paroxysmal atrial fibrillation; I10 Essential (primary) hypertension; R00.1 Bradycardia, unspecified; I25.10 Atherosclerotic heart disease of native coronary artery without angina pectoris; Z79.82 Long term (current) use of aspirin; Z79.899 Other long term (current) drug therapy; Z79.84 Long term (current) use of oral hypoglycemic drugs; Z87.891 Personal history of nicotine dependence; Z68.33 Body mass index [BMI] 33.0-33.9, adult; Z79.01 Long term (current) use of anticoagulants
CPT/HCPCS: 36415; 71045; 75625; 80053; 80061; 82272; 83605; 83880; 84145; 84484; 85025; 85610; 85730; 93005; 93458; 99285